=== PATIENT | female | born 1960 | race Caucasian/White ===

== ENCOUNTER 2017-03-24 14:47 | Emergency (ER) | payer OTHER, SELFPAY ==
[2017-03-24 14:55] VITALS: BP 179/100; PULSE 79; RESP 18; TEMP 37; O2SAT 95; BMI 26.3
--- NOTE | 2017-03-24 15:07 | XR_ITS ---
XR chest 2V HISTORY: Cough and congestion, tobacco abuse, smoker ITS.REASON: COUGH ORDERING PHYSICIAN: Dmitriy Ballard MD PATIENT AGE: 56 years COMPARISON: 05/13/2016 FINDINGS: The cardiomediastinal silhouette and pulmonary vascularity are within normal limits. There are emphysematous changes. No lobar consolidation or collapse. No acute bony anomalies. IMPRESSION: COPD/emphysema, no acute infiltrate.
--- NOTE | 2017-03-24 15:12 | HMH.EDGENADL ---
ED Disposition Clinical Impression: Sinusitis Qualifiers: Sinusitis location: unspecified location Chronicity: unspecified Qualified Code(s): J32.9 - Chronic sinusitis, unspecified Disposition: Home, Self-Care Condition on Discharge: Good Instructions: Sinusitis Additional Instructions: Additional instructions for HEADACHE: See your physician as soon as possible for further evaluation. Return immediately if worsening headache, vomiting, problems with vision or speech, fever, numbness or weakness of the extremities, neck pain or stiffness. Prescriptions: Azithromycin [Zithromax 250mg tab] 250 mg PO DAILY #4 tab Referrals: Eduard Augustin MD [Primary Care Provider] - - Critical Care Critical Care Time: No Attestation: On , the high probability of a clinically significant, sudden or life threatening deterioration of the following system(s) required my full and direct attention, intervention and personal management. The time I documented below is in addition to time spent performing reported procedures but includes the following listed in this critical care notation. Medical Decision Making Vital Signs: 03/24/17 14:55 Temperature 98.6 F Temperature Source Oral Pulse Rate [Right Brachial] 79 Respiratory Rate 18 Blood Pressure [Right Arm] 179/100 Blood Pressure Mean [Right Arm] 126 Blood Pressure Source [Right Arm] Automatic Cuff Blood Pressure Position [Right Arm] Sitting 02 Sat by Pulse Oximetry 95 Oxygen Delivery Method Room Air - Lab Data Lab Results 03/24/17 14:35: Urine Color Yellow, Urine Appearance Sl cloudy, Urine pH 7.0, Ur Specific [place] 1.020, Urine Protein Trace, Urine Glucose (UA) Negative, Urine Ketones Negative, Urine Blood Trace-i, Urine Nitrate Negative, Urine Bilirubin Negative, Urine Urobilinogen 0.2, Ur Leukocyte Esterase Negative, Urine RBC 3-5, Urine WBC Occasional, Ur Squamous Epith Cells 10-20, Urine Bacteria 2+, Urine Mucus 2+ 03/24/17 15:09: Influenza Type A Ag Negative, Influenza Type B Ag Negative 03/24/17 16:00: WBC 12.6 H, RBC 4.59, Hgb 15.6, Hct 46.1, MCV 100.4 H, MCH 34.0 H, MCHC 33.9, RDW 13.2, Plt Count 271, MPV 7.8, Neut % (Auto) 69.1, Lymph % (Auto) 22.2, [place] % (Auto) 5.6, Eos % (Auto) 2.5, Baso % (Auto) 0.6, Neut # (Auto) 8.7 H, Lymph # (Auto) 2.8, [place] # (Auto) 0.7, Eos # (Auto) 0.3, Baso # (Auto) 0.1 03/24/17 16:00: Sodium 141, Potassium 4.2, Chloride 105, Carbon Dioxide 29, Anion Gap 11.2, BUN 10, Creatinine 0.48 L, Estimated Creat Clear 181, Estimated GFR 135, Est GFR ( Amer) 163, Glucose 89, Calcium 8.8, Total Bilirubin 0.5, AST 21, ALT 30, Alkaline Phosphatase 112, Troponin I < 0.02, Total Protein 7.7, Albumin 3.6, Globulin 4.1 H, Albumin/Globulin Ratio 0.9 L Result diagrams: 03/24/17 16:00 03/24/17 16:00 Orders (Tests/Meds): ED MEDICATIONS Discontinued Medications Generic Name Dose Route Start Last Admin Trade Name Melecioq PRN Reason Stop Dose Admin Iopamidol 75 ml 03/24/17 16:57 03/24/17 16:58 [id number]; 75ml Vial IV 03/24/17 16:58 75 ml ONCE ONE Administration Ketorolac Tromethamine 30 mg 03/24/17 15:27 03/24/17 16:38 Toradol 30mg/Ml Vial IV 03/24/17 15:28 30 mg ONCE ONE Administration Sodium Chloride 10 ml 03/24/17 16:57 03/24/17 16:58 Rad-Saline Flush 10ml Syringe IV 03/24/17 16:58 10 ml ONCE ONE Administration ORDERS Category Date Time Status CT head/brain wo/w con Stat Cat Scan 03/24/17 15:[address] soft tissue neck w con Stat Cat Scan 03/24/17 15:25 Taken Urine Culture Stat Micro 03/24/17 14:35 Received ECG Request by /Pascual Stat Y 03/24/17 15:27 Ordered - CT Data CT Scan: Head, Other (neck) Time Received: 18:[address] Reviewed: Yes: I have viewed the radiologist's interpretation Findings Narrative: CT scan interpreted by [facility] radiologist. Faxed report received and reviewed: Head: No acute abnormality of the brain parenchyma and extra-axial space. Mild sinus disease.
--- NOTE | 2017-03-24 15:25 | CT_ITS ---
CT head/brain wo/w con HISTORY: Severe headache with dizziness ITS.REASON: headache ORDERING PHYSICIAN: Dmitriy Ballard MD PATIENT AGE: 56 years COMPARISON: 01/11/2014 TECHNIQUE: Axial images obtained without and with contrast. Brain and bone windows reviewed. FINDINGS: There is mild prominence of the adenoid tissue. No midline shift, mass effect, intracranial hemorrhage, or hydrocephalus. No enhancing lesion. Mild mucosal thickening involves the ethmoid sinuses. No sinus air-fluid level evident. No mastoid effusion. IMPRESSION: 1. No acute intracranial findings. 2. Mild ethmoid sinus disease with mild adenoid hypertrophy
--- NOTE | 2017-03-24 15:25 | CT_ITS ---
CT soft tissue neck w con CLINICAL INDICATION: ITS.REASON: hoarse voice, throat pain for more than 1 month ORDERING PHYSICIAN: Dmitriy Ballard MD PATIENT AGE: 56 years COMPARISON: None FINDINGS: Adenoid hypertrophy is present. Scattered small lymph nodes are present in the neck. A small cluster of nodes present in the right jugulodigastric region measuring up to 12 x 18 mm and on the left measuring up to 14 x 11 mm. No evidence of abscess. The epiglottis and glottic region has an unremarkable appearance. The parotid and salivary glands are unremarkable. Right thyroid gland absent or atrophic. Upper thoracic images show centrilobular emphysema. Mild mucosal thickening involves the left ethmoid sinus. There is reversal of the cervical lordosis with degenerative disc disease at C5-C6 and C6-C7. Facet arthritic changes are present on the right C2-C3 IMPRESSION: 1. Mild cervical adenopathy. 2. Adenoid hypertrophy. 3. Centrilobular emphysema 4. Mild left ethmoid sinus disease
[2017-03-24 16:08] LABS: Basophils # 0.1 K/mm3 (0-0.2); Basophils % 0.6 % (0.1-2.0); Eosinophils # 0.3 K/mm3 (0.0-0.4); Eosinophils % 2.5 % (0.1-12.0); Hematocrit 46.1 % (37.0-47.0); Hemoglobin 15.6 g/dL (12.2-16.2); Lymphocytes # 2.8 K/mm3 (0.7-4.5); Lymphocytes % 22.2 K/mm3 (10-50); Mean Corpuscular HGB Conc 33.9 g/dL (31.8-35.4); Mean Corpuscular Volume 100.4 fl (81-99); Mean Platelet Volume 7.8 fl (7.4-10.4); Monocytes # 0.7 K/mm3 (0.1-1.0); Monocytes % 5.6 % (1.7-9.3); Neutrophils # 8.7 K/mm3 (1.8-7.8); Neutrophils % 69.1 % (37.0-80.0); Platelet Count 271 K/mm3 (142-424); Red Blood Count 4.59 M/mm3 (4.20-5.40); Red Cell Distribution Width 13.2 % (11.5-17.5); White Blood Count 12.6 K/mm3 (4.8-10.8)
[2017-03-24 16:25] LABS: Alanine Aminotransferase 30 U/L (12-78); Albumin Level 3.6 gm/dL (3.4-5.0); Albumin/Globulin Ratio 0.9 (1.1-1.8); Alkaline Phosphatase 112 U/L (46-116); Anion Gap 11.2 mEq/L (5-15); Aspartate Amino Transferase 21 U/L (15-37); Bilirubin,Total 0.5 mg/dL (0.2-1.0); Blood Urea Nitrogen 10 mg/dL (7-18); Calcium 8.8 mg/dL (8.5-10.1); Carbon Dioxide 29 mmol/L (21.0-32.0); Chloride 105 mmol/L (98-107); Creatinine Clearance Estimated 181 mL/min (0-300); Creatinine,Serum 0.48 mg/dL (0.55-1.02); Estimated Glomerular Filt Rate 135 ml/min (>60); GFR (African American) 163 ML/MIN (>60); Globulin 4.1 gm/dl (1.3-3.2); Glucose 89 mg/dL (74-106); Potassium 4.2 mmoL/L (3.5-5.1); Sodium 141 mmol/L (136-145); Total Protein,Serum 7.7 gm/dL (6.4-8.2); Troponin I < 0.02 ng/ml (0.00-0.06)
[2017-03-24 16:36] LABS: Microscopic, Urine URINE MICROSCOPIC (MICROSCOPIC)
[2017-03-24 16:46] LABS: Appearance,Urine SL CLOUDY (Clear); Bilirubin,Urine Negative (Negative); Blood, Urine TRACE-I (Negative); Color,Urine YELLOW (Yellow); Glucose,Urine (UA) Negative (Negative); Ketones,Urine Negative (Negative); Leukocyte Esterase,Urine Negative (Negative); Nitrate,Urine Negative (Negative); Protein,Urine TRACE (Negative); Urobilinogen,Urine 0.2 EU/dl (0.2)
[2017-03-24 18:06] LABS: Bacteria,Urine 2+ /lpf; Mucus,Urine 2+ /lpf; WBC,Urine Occasional #/hpf (0-3)
[2017-03-24 19:19] VITALS: BP 189/100; PULSE 82; RESP 20; TEMP 37.2; O2SAT 97
== END 2017-03-24 19:22 | disposition home or self-care (01) ==
PROVIDERS: Emergency Provider Emergency Medicine; Family Provider Nurse Practitioner Family; PCP Internal Medicine
DX: J32.9 Chronic sinusitis, unspecified (principal); R52 Pain, unspecified; R42 Dizziness and giddiness; R06.02 Shortness of breath; H53.8 Other visual disturbances; Z72.0 Tobacco use
CPT/HCPCS: 70470; 70491; 71046; 80053; 81001; 84484; 85025; 87086; 87275; 87276; 96374; 99282; Q9967

== ENCOUNTER 2017-04-01 12:55 | Emergency (ER) | payer OTHER, SELFPAY ==
[2017-04-01 13:08] VITALS: BP 153/108; PULSE 75; RESP 20; TEMP 37.1; O2SAT 95; BMI 25.9
--- NOTE | 2017-04-01 13:09 | XR_ITS ---
XR ribs LT min 3V w CXR1V HISTORY: Left-sided rib pain following injury ITS.REASON: FELL AT HOME ORDERING PHYSICIAN: Antione Harrell PATIENT AGE: 56 years COMPARISON: None FINDINGS: A frontal view of the chest shows no acute finding. There is some hyperinflation suggesting COPD with hyperlucency in the apices. Multiple views of the left ribs show old left-sided rib fractures involving the left sixth and seventh ribs. There is angulation deformity involving the anterior aspect of the left eighth and ninth ribs which may represent nondisplaced acute fractures. Please correlate with patient's area of pain. No evidence of pneumothorax. No displaced fractures. There is old left distal clavicular fracture. IMPRESSION: Suspect acute and chronic left-sided rib fractures as described above which are nondisplaced.
--- NOTE | 2017-04-01 13:09 | XR_ITS ---
XR hand RT min 3V HISTORY: Posttraumatic pain ITS.REASON: FELL AT HOME ORDERING PHYSICIAN: Antione Harrell PATIENT AGE: 56 years COMPARISON: None FINDINGS: A bone plate is present along the distal radius. There is a rounded metallic density at the base of the first metacarpal. No acute fracture or dislocation is evident. IMPRESSION: No acute finding
--- NOTE | 2017-04-01 13:30 | HMH.EDUTC ---
[facility] [place] Impression: Right wrist sprain Qualifiers: Encounter type: initial encounter Qualified Code(s): S63.501A - Unspecified sprain of right wrist, initial encounter Fall Qualifiers: Encounter type: initial encounter Qualified Code(s): W19.XXXA - Unspecified fall, initial encounter Left rib fracture Qualifiers: Encounter type: initial encounter Rib fracture type: multiple ribs Fracture type: closed Qualified Code(s): S22.42XA - Multiple fractures of ribs, left side, initial encounter for closed fracture Disposition: Home, Self-Care Condition on Discharge: Good Instructions: DI for Rib Fracture, DI for Wrist Sprain Additional Instructions: * use as tolerated * Rest * ice 15-20 mins 3-4 times a day * wrist splint for support and pain unless in shower. Be sure not too tight but not too loose either * Do not wrap ribs as this can lead to pneumonia. Splint your ribs with moving, coughing. * Elevate as discussed as much as possible to help reduce swelling and therefore, pain * I discussed your pain with the ER MD. Follow up with Dr. Prakash regarding your pain. Due to your pain contract, we will not prescribe you additional pain medication. Referrals: Eduard Augustin MD [Primary Care Provider] - (Call again today. Report you were here so he can request xrays. Questionable rib fractures and wrist sprain. We will not give additional pain medication due to your current narcotic use/agreement.) Time of Disposition: 14:02 Medical Decision Making Vital Signs: 04/01/17 13:08 04/01/17 14:07 Temperature 98.7 F 98.0 F Temperature Source Temporal Artery Scan Pulse Rate 78 Pulse Rate [Right Radial] 75 Respiratory Rate 20 18 Blood Pressure 136/77 Blood Pressure [Right Arm] 153/108 Blood Pressure Mean [Right Arm] 123 02 Sat by Pulse Oximetry 95 Oxygen Delivery Method Room Air - Radiology Data #1 Image(s): Wrist, Other (ribs) Image Reviewed: Yes I have reviewed radiologist's interpretation Preliminary Findings: Normal/NAD (hand), Abnormal (ribs) see report, questionable acute rib fractures w/ old fracture present - Physician Consults Physician Consulted: Dr. Vazquez, ER MD Reason -: Pt condition Comment/Response: Discussed PMHx, HPI, degree of pain, current treatment. Reports pt must follow up with primary care and no further narcotics are to be given due to pain contract. Aware pt threatening to leave [facility] and sign in ER. States pt is welcome to do so but his POC will be no different then out POC. - Alberto Inquiry Pt receiving controlled substance: No - Reevaluation(s) Reevaluation #1: pt refusing all offered medications (toradol injection, ibuprofen, naproxen, steroids, norflex). Wants medication stronger then oxycodone. Updated pt that I spoke to ER MD. She is fine with POC to follow up with primary care. He always calls me back so I am sure he will today . Request copy of xray reports and plans to follow up with him. Anxiety appears less and pt appears more comfortable at discharge [facility] [place] - General Stated complaint: AO [id number] RIB PAIN Time Seen by Provider: 04/01/17 13:30 Mode of Arrival: Family Vehicle Source of Information: Patient Limitations: No Limitations Description of Symptoms (Recalled from Triage Doc. by RN): PT C/O LEFT RIB PAIN AND RIGHT HAND PAIN FROM FALL ON WEDNESDAY IN HER HOUSE. HEENT Symptoms (Recalled from RN notes): No Resp Symptoms (Recalled from RN notes): No Skin Symptoms (Recalled from RN notes): No MS Symptoms (Recalled from RN notes): Yes (LEFT RIB PAIN AND RIGHT WRIST) Functional Status (Recalled from RN notes): NA - History of Present Illness Provider Complaint: c/o right hand and left ribs pain after falling Wednesday, 3 days ago. Reports a hx of chronic low back pain that causes RLE weakness intermittently. Has been referred to [facility] by PCP in [place] but has not had that appt yet. Reports that on Wednesday, RLE gave out resulting in fall over chair onto l
--- NOTE | 2017-04-01 13:57 | ED_ITS ---
[facility] [place] Clinical Impression: Right wrist sprain Qualifiers: Encounter type: initial encounter Qualified Code(s): S63.501A - Unspecified sprain of right wrist, initial encounter Fall Qualifiers: Encounter type: initial encounter Qualified Code(s): W19.XXXA - Unspecified fall, initial encounter Left rib fracture Qualifiers: Encounter type: initial encounter Rib fracture type: multiple ribs Fracture type: closed Qualified Code(s): S22.42XA - Multiple fractures of ribs, left side , initial encounter for closed fracture Disposition: Home, Self-Care Condition on Discharge: Good Instructions: DI for Rib Fracture, DI for Wrist Sprain Additional Instructions: * use as tolerated * Rest * ice 15-20 mins 3-4 times a day * wrist splint for support and pain unless in shower. Be sure not too tight but not too loose either * Do not wrap ribs as this can lead to pneumonia. Splint your ribs with moving, coughing. * Elevate as discussed as much as possible to help reduce swelling and therefore , pain * I discussed your pain with the ER MD. Follow up with Dr. Prakash regarding your pain. Due to your pain contract, we will not prescribe you additional pain medication. Referrals: Eduard Augustin MD [Primary Care Provider] - (Call again today. Report you were here so he can request xrays. Questionable rib fractures and wrist sprain. We will not give additional pain medication due to your current narcotic use/ agreement.) Time of Disposition: 14:02 Medical Decision Making Vital Signs: 04/01/17 13:08 04/01/17 14:07 Temperature 98.7 F 98.0 F Temperature Source Temporal Artery Scan Pulse Rate 78 Pulse Rate [Right Radial] 75 Respiratory Rate 20 18 Blood Pressure 136/77 Blood Pressure [Right Arm] 153/108 Blood Pressure Mean [Right Arm] 123 02 Sat by Pulse Oximetry 95 Oxygen Delivery Method Room Air - Radiology Data #1 Image(s): Wrist, Other (ribs) Image Reviewed: Yes I have reviewed radiologist's interpretation Preliminary Findings: Normal/NAD (hand), Abnormal (ribs) see report, questionable acute rib fractures w/ old fracture present - Physician Consults Physician Consulted: Dr. Vazquez, ER MD Reason -: Pt condition Comment/Response: Discussed PMHx, HPI, degree of pain, current treatment. Reports pt must follow up with primary care and no further narcotics are to be given due to pain contract. Aware pt threatening to leave [facility] and sign in ER. States pt is welcome to do so but his POC will be no different then out POC. - Alberto Inquiry Pt receiving controlled substance: No - Reevaluation(s) Reevaluation #1: pt refusing all offered medications (toradol injection, ibuprofen, naproxen, steroids, norflex). Wants medication stronger then oxycodone. Updated pt that I spoke to ER MD. She is fine with POC to follow up with primary care. He always calls me back so I am sure he will today . Request copy of xray reports and plans to follow up with him. Anxiety appears less and pt appears more comfortable at discharge [facility] [place] HPI - General Stated complaint: AO [id number] RIB PAIN Time Seen by Provider: 04/01/17 13:30 Mode of Arrival: Family Vehicle Source of Information: Patient Limitations: No Limitations Description of Symptoms (Recalled from Triage Doc. by RN): PT C/O LEFT RIB PAIN AND RIGHT HAND PAIN FROM FALL ON WEDNESDAY IN HER HOUSE. HEENT Symptoms (Recalled from RN notes): No Resp Symptoms (Recalled from RN notes): No Skin Symp
[2017-04-01 14:07] VITALS: BP 136/77; PULSE 78; RESP 18; TEMP 36.7; O2SAT 99
== END 2017-04-01 14:20 | disposition home or self-care (01) ==
PROVIDERS: Emergency Provider Nurse Practitioner Family; Family Provider Nurse Practitioner Family; PCP Internal Medicine
DX: S63.501A Unspecified sprain of right wrist, initial encounter (principal); S22.42XA Multiple fractures of ribs, left side, initial encounter for closed fracture; W01.0XXA Fall on same level from slipping, tripping and stumbling without subsequent striking against object, initial encounter; Y92.019 Unspecified place in single-family (private) house as the place of occurrence of the external cause; Z79.899 Other long term (current) drug therapy; Z88.0 Allergy status to penicillin; I10 Essential (primary) hypertension; F17.210 Nicotine dependence, cigarettes, uncomplicated
CPT/HCPCS: 71101; 73130; 99202

== ENCOUNTER → 2017-10-22 11:58 | Outpatient (CLI) | payer OTHER, SELFPAY ==
[2017-10-22 13:13] LABS: Basophils # 0.1 K/mm3 (0-0.2); Basophils % 1.3 % (0.1-2.0); Eosinophils # 0.3 K/mm3 (0.0-0.4); Eosinophils % 3.8 % (0.1-12.0); Hemoglobin 14.7 g/dL (12.2-16.2); Lymphocytes # 3.6 K/mm3 (0.7-4.5); Lymphocytes % 45.2 K/mm3 (10-50); Mean Corpuscular HGB Conc 33.4 g/dL (31.8-35.4); Mean Corpuscular Hemoglobin 33.2 pg (27.0-31.2); Mean Corpuscular Volume 99.5 fl (81-99); Mean Platelet Volume 8.1 fl (7.4-10.4); Monocytes # 0.6 K/mm3 (0.1-1.0); Monocytes % 8.1 % (1.7-9.3); Neutrophils # 3.3 K/mm3 (1.8-7.8); Neutrophils % 41.7 % (37.0-80.0); Platelet Count 319 K/mm3 (142-424); Red Blood Count 4.42 M/mm3 (4.20-5.40); Red Cell Distribution Width 12.9 % (11.5-17.5)
[2017-10-22 14:16] LABS: Alanine Aminotransferase 24 U/L (12-78); Albumin Level 3.5 gm/dL (3.4-5.0); Alkaline Phosphatase 119 U/L (46-116); Anion Gap 11.1 mEq/L (5-15); Aspartate Amino Transferase 15 U/L (15-37); Bilirubin,Direct 0.1 mg/dL (0.0-0.2); Bilirubin,Indirect 0.4 mg/dL (0.0-0.9); Bilirubin,Total 0.5 mg/dL (0.2-1.0); Blood Urea Nitrogen 18 mg/dL (7-18); Calcium 8.2 mg/dL (8.5-10.1); Carbon Dioxide 30 mmol/L (21.0-32.0); Chloride 104 mmol/L (98-107); Creatinine,Serum 0.72 mg/dL (0.55-1.02); Estimated Glomerular Filt Rate 84 ml/min (>60); GFR (African American) 102 ML/MIN (>60); Glucose 113 mg/dL (74-106); Potassium 4.1 mmoL/L (3.5-5.1); Sodium 141 mmol/L (136-145)
[2017-10-23 08:15] LABS: Hep A Ab, IgM Negative (Negative); Hepatitis B Core Antibody IgM Negative (Negative); Hepatitis B Surface Antigen Negative (Negative)
[2017-10-25 05:17] LABS: HIV Screen 4th Generation wRfx Non Reactive (Non Reactive)
[2017-10-25 05:17] LABS: Hepatitis C Antibody 6.1 s/co ratio (0.0-0.9)
== END ==
PROVIDERS: PCP Nurse Practitioner Family; Visit Provider Family Medicine Addiction Medicine
DX: F11.20 Opioid dependence, uncomplicated (principal); Z79.899 Other long term (current) drug therapy
CPT/HCPCS: 36415; 80048; 80074; 80076; 85025; 86703; G0432

== ENCOUNTER → 2017-11-24 14:49 | Outpatient (CLI) | payer OTHER, SELFPAY ==
--- NOTE | 2017-11-24 14:55 | XR_ITS ---
XR tibia fibula LT 2V CLINICAL INDICATION: ITS.REASON: BENIGN SOFT TISSUE NEOPLASM ORDERING PHYSICIAN: Monae Kelly PATIENT AGE: 56 years Comparison: None FINDINGS: There is no fracture involving the distal shaft of the fibula. This is nondisplaced. There is abundant callus formation noted. Fracture line however still visible centrally. No other significant anomalies are evident. IMPRESSION: Old distal fibular fracture with incomplete bony union
== END ==
PROVIDERS: PCP Nurse Practitioner Family; Visit Provider Nurse Practitioner Family
DX: D21.9 Benign neoplasm of connective and other soft tissue, unspecified (principal)
CPT/HCPCS: 73590

== ENCOUNTER → 2020-02-16 15:38 | Outpatient (CLI) | payer MEDICAID, SELFPAY ==
--- NOTE | 2020-02-16 15:45 | XR_ITS ---
PROCEDURE: XR WRIST RT 2V CLINICAL INDICATION: PAIN IN RT WRIST COMPARISON: CR WRL3 WRIST-3 VIEWS-LT from 10/18/2012 CR WRL3 WRIST-3 VIEWS-LT from 10/28/2012 CR WRL3 WRIST-3 VIEWS-LT from 04/27/2013 CR WRISTCMRT XR wrist RT min 3V from 05/17/2017 FINDINGS: There is a volar bone plate at the distal radius. Small spur is present along the ulnar aspect of the distal radius at the articular surface. A rounded metallic density is present at the base of the thumb consistent with a prosthesis. There is lateral dislocation the 1st metacarpal similar to the previous exam. There are mild degenerative changes at the scapho trapezium joint Other findings:None. IMPRESSION: Postsurgical and degenerative changes, no acute finding Dictated by: Stephen Odonnell MD 02/16/2020 16:55 Stephen Odonnell MD in [place] 02/16/2020 16:55
== END ==
PROVIDERS: PCP Nurse Practitioner Family; Visit Provider Nurse Practitioner Family
DX: M25.531 Pain in right wrist (principal)
CPT/HCPCS: 73100

== ENCOUNTER → 2020-02-22 16:11 | Outpatient (CLI) | payer MEDICAID, SELFPAY ==
--- NOTE | 2020-02-22 16:16 | XR_ITS ---
PROCEDURE: XR HIP LT 2-3V W/PELVIS CLINICAL INDICATION: TROCHANTERIC BURSITIS, LT HIP COMPARISON: CR HIPCMRT XR hip RT 2-3V w/pelvis from 05/17/2017 FINDINGS: There are mild osteoarthritic changes of both hips as seen on the AP view of the pelvis. There is an old left inferior pubic ramus fracture. Cortical thickening also noted the superior pubic ramus on the left laterally which may be due to an old fracture. No acute fracture or dislocation. No lytic or blastic change IMPRESSION: Mild osteoarthritis of the hips with old left superior and inferior pubic rami fractures Dictated by: Stephen Odonnell MD 02/22/2020 16:27 Stephen Odonnell MD in [place] 02/22/2020 16:27
== END ==
PROVIDERS: PCP Nurse Practitioner Family; Visit Provider Nurse Practitioner Family
DX: M70.62 Trochanteric bursitis, left hip (principal)
CPT/HCPCS: 73502

== ENCOUNTER → 2020-04-03 12:15 | Outpatient (CLI) | payer MEDICAID, SELFPAY ==
[2020-04-03 12:55] LABS: Blood Urea Nitrogen 16 mg/dl (7-17); Estimated Glomerular Filt Rate 103 ml/min (>60); GFR (African American) 125 ML/MIN (>60)
--- NOTE | 2020-04-03 13:19 | MR_ITS ---
PROCEDURE: MR WRIST RT WO/W CON CLINICAL INDICATION: RIGHT WRIST PAIN HX WRIST SURGERY X4YRS AGO. GANGLION CYST ON POSTERIOR ASPECT OF WRIST X1YR, BUT HAS GOTTEN BIGGER. TENDER TO TOUCH. 17ML PROHANCE GIVEN. LOT:[id number] EXP: MAR 2022 BUN:16 CRE:0.6 GFR:103 X-RAY 02-16-20 COMPARISON: CR XR WRIST RT 2V from 02/16/2020 TECHNIQUE: Routine multiplanar multi echo sequences are performed without and with gadolinium enhancement. FINDINGS: Extensive artifact is present from prior distal radial fixation. Metallic artifact also present at the proximal aspect of the 1st metacarpal. There is trace fluid in the 3rd 4th and 5th carpal metacarpal joints and trace fluid in visualized metacarpophalangeal joints. Wrist ligaments are obscured by metallic artifact. Triangular fibrocartilage obscured by metallic artifact. Large amount of fluid is present distending the 4th extensor compartment tendon sheath, small amount of fluid in the 2nd 3rd and 5th extensor compartments consistent with tenosynovitis. Small he castorena is or debris within the tendon sheaths. Synovial enhancement of the tendon sheath noted. Tendons appear intact. No abnormal soft tissue mass. 10 mm dorsal lateral juxta-articular synovial cyst deep to the distended tendon sheath. IMPRESSION: 1. Extensive artifact from radial fixation device and proximal 1st metacarpal prosthesis. 2. Prominent extensor tenosynovitis with some adhesions and debris. 3. No obvious tendon tear 4. 1 cm juxta-articular synovial cyst deep to the dilated extensor tendon sheath. 5. No obvious soft tissue mass Dictated by: Stephen Odonnell MD 04/17/2020 14:11 Stephen Odonnell MD in [place] 04/17/2020 14:11
== END ==
PROVIDERS: PCP Nurse Practitioner Family; Visit Provider Orthopaedic Surgery Adult Reconstructive Orthopaedic Surgery
DX: M25.531 Pain in right wrist (principal)
CPT/HCPCS: 36415; 73223; 82565; 84520; A9576

== ENCOUNTER → 2020-10-23 14:16 | Outpatient (CLI) | payer MEDICAID, SELFPAY ==
--- NOTE | 2020-10-23 14:20 | XR_ITS ---
PROCEDURE: XR SHOULDER RT MIN 2V CLINICAL INDICATION: PAIN IN RT SHOULDER COMPARISON: CR SHOU3L [id number] VIEWS from 08/22/2014 CR SHOULDCMRT XR shoulder RT min 2V from 05/17/2017 FINDINGS: No fracture or dislocation. No lytic or blastic change. There is normal mineralization. The joint spaces are well-preserved. No significant degenerative/arthritic changes. No erosive changes evident. Other findings:None. IMPRESSION: No acute findings. Dictated by: Stephen Odonnell MD 10/23/2020 16:34 Stephen Odonnell MD in [place] 10/23/2020 16:34
== END ==
PROVIDERS: PCP Nurse Practitioner; Visit Provider Nurse Practitioner
DX: M25.511 Pain in right shoulder (principal)
CPT/HCPCS: 73030

== ENCOUNTER → 2020-11-07 13:16 | Outpatient (CLI) | payer MEDICAID, SELFPAY ==
--- NOTE | 2020-11-07 13:18 | CA_ITS ---
APPROVED REPORT Pool Table Mechanic: YASMINE Laterality: Bilateral Study Quality: Good Indications: eval for carotid stenosis, recurrent dizziness Risk Factors Smoking dizziness Doppler Spectral Velocity Analysis ECA (R) 47.00/10.70 cm/s ECA (L) 59.90/21.40 cm/s dICA (R) 119.00/56.10 cm/s dICA (L) 132.80/64.30 cm/s Palma (R) 49.30/21.60 cm/s [place] (L) 55.10/26.20 cm/s pICA (R) 51.60/20.80 cm/s pICA (L) 66.30/29.10 cm/s dCCA (R) 57.70/23.00 cm/s dCCA (L) 62.90/27.60 cm/s pCCA (R) 61.50/20.30 cm/s pCCA (L) 72.60/28.90 cm/s Vert (R) 53.90/26.20 cm/s Vert (L) 51.40/30.00 cm/s ICA/CCA 1.91 ICA/CCA 1.84 Findings Duplex evaluation demonstrates antegrade flow of the bilateral Vertebral Arteries. Duplex evaluation demonstrates stenosis of the right proximal internal carotid artery in the range of 20-49% with PSV <140 cm/sec, EDV <100 cm/sec, and IC/CC Ratio <4.0. Duplex evaluation demonstrates stenosis of the left proximal internal carotid artery in the range of 20-49% with PSV <140 cm/sec, EDV <100 cm/sec, and IC/CC Ratio <4.0. Conclusion Duplex evaluation demonstrates antegrade flow of the bilateral Vertebral Arteries. Duplex evaluation demonstrates stenosis of the right proximal internal carotid artery in the range of 20-49% with PSV <140 cm/sec, EDV <100 cm/sec, and IC/CC Ratio <4.0. Duplex evaluation demonstrates stenosis of the left proximal internal carotid artery in the range of 20-49% with PSV <140 cm/sec, EDV <100 cm/sec, and IC/CC Ratio <4.0. Electronically signed by : Stephen Odonnell MD 11/07/2020 16:13:08
--- NOTE | 2020-11-07 15:23 | MR_ITS ---
PROCEDURE: MR SHOULDER RT WO CON CLINICAL INDICATION: PAIN IN RIGHT SHOULDER COMPARISON: CR XR SHOULDER RT MIN 2V from 10/23/2020 TECHNIQUE: Routine multiplanar multi echo sequences are performed without gadolinium enhancement. FINDINGS: Generalized motion artifact somewhat obscures fine detail. There is complete tear of the supraspinatus and infraspinatus tendons with mild retraction of the musculotendinous fibers. Shoulder joint effusion is present. Fluid is present in the subdeltoid region and subacromial area. Small amount fluid is present in the acromioclavicular joint. No labral tear apparent. The bicipital tendon is in place. There is thickening of the subscapularis tendon consistent with tendinopathy/tendinosis. Fluid is present anterior to the subscapularis muscle and along the lateral aspect of the proximal humerus. Subchondral cystic changes are present in the humeral head. IMPRESSION: Complete tear of the supraspinatus and infraspinatus tendons with mild retraction of the musculotendinous fibers Shoulder joint effusion with bursal collections in the sub coracoid region and around the proximal humerus. Dictated by: Stephen Odonnell MD 11/08/2020 07:56 Stephen Odonnell MD in [place] 11/08/2020 07:56
== END ==
PROVIDERS: PCP Nurse Practitioner; Visit Provider Nurse Practitioner Family
DX: R42 Dizziness and giddiness (principal); R00.0 Tachycardia, unspecified; F12.90 Cannabis use, unspecified, uncomplicated; G47.00 Insomnia, unspecified; G47.8 Other sleep disorders; G47.9 Sleep disorder, unspecified; Z72.0 Tobacco use; M25.511 Pain in right shoulder
CPT/HCPCS: 73221; 93880

== ENCOUNTER 2020-11-07 13:57 | Outpatient (RCR) | payer MEDICAID, SELFPAY ==
--- NOTE | 2020-11-07 15:08 | HMH.PTOPEV ---
PT Outpatient Evaluation Rehab PT Outpatient Evaluation Start: 11/07/20 14:44 Freq: Status: Active Protocol: Document 11/07/20 14:45 KRISTINEMCKINLEY (Rec: 11/07/20 15:07 JORGE ALBERTO [id number]) Electronically Signed By Wayne Larsen, PT 11/07/20 14:45 Outpatient Therapy Subjective History Subjective History This is the initial Physical therapy vestibular evaluation for Delia Buchanan. Pt is a 59 y/o female referred to PT for vestibular rehab due to c/o fainting, dizziness, and feelings of passing out . Pt reports these spells began in April w/ min c/o just, feeling odd . Pt states she was usually able to sit down and eat something and spell would pass . Pt reports on Oct 25 she had a real bad spell where her ears got warm, she felt like she was gonna pass out, and when she was able to lie down she passed out . Pt does not know of any aggravating factor for spells . Chief Complaint Other Symptom Type Other Symptoms Relieved By Nothing Balance Eval Subjective Hx of Complaint Comment feeling of fainting beginning in April 2020 Chief Complaint vertigo No Did you feel dizzy, unsteady or faint? Yes Activity at onset unknown Prior Functional Limitations Prior Functional Fieldon Level Ind Current Functional Limitations Comment none Hx of Falls Hx Falls No Gait/Posture Asssessment General Gait Observation No Deviations/Normal Assistive Devices None / NA Level of Transfer Assist Independent Hip Observation in Gait Swing No Deviation Hip Observation in Gait Stance No Deviation Ankle/Foot Observation in Gait Swing No Deviation Ankle/Foot Observation in Gait Stance No Deviation Nystagmus Nystagmus Presence None Oculomotor Gaze Oculomotor Gaze Nml: Vergence Smooth Pursuit Saccades VOR Cancellation Cover/Uncover Cross Cover Outpatient Therapy Assessment Prognosis Rehab Potential I
== END 2020-11-07 13:59 | disposition home or self-care (01) ==
LOC: PT 13:57
PROVIDERS: PCP Nurse Practitioner; Visit Provider Nurse Practitioner Family
DX: R42 Dizziness and giddiness (principal)
CPT/HCPCS: 97163

== ENCOUNTER → 2020-11-13 09:47 | Outpatient (CLI) | payer MEDICAID, SELFPAY ==
--- NOTE | 2020-11-13 09:47 | MR_ITS ---
PROCEDURE INFORMATION: Exam: MRA Head Without Contrast; Arteriography Exam date and time: 11/13/2020 9:47 AM Age: 59 years old Clinical indication: Dizziness and giddiness; Additional info: Eval posterior circulation. Dizziness TECHNIQUE: Imaging protocol: Magnetic resonance angiography head without contrast. Exam focused on the arteries. COMPARISON: HEADWW CT head/brain wo/w con 03/24/2017 4:51 PM FINDINGS: ANTERIOR CIRCULATION: Right internal carotid artery: Intracranial segment is patent with no significant stenosis. No aneurysm. Right middle cerebral artery: No occlusion or significant stenosis. No aneurysm. Right anterior cerebral artery: No occlusion or significant stenosis. No aneurysm. Left internal carotid artery: Intracranial segment is patent with no significant stenosis. No aneurysm. Left middle cerebral artery: No occlusion or significant stenosis. No aneurysm. Left anterior cerebral artery: The A1 segment of the left anterior cerebral artery is the dominant supply of the anterior cerebral circulation. POSTERIOR CIRCULATION: Right vertebral artery: No occlusion or significant stenosis. No aneurysm. Left vertebral artery: No occlusion or significant stenosis. No aneurysm. Basilar artery: No occlusion or significant stenosis. No aneurysm. Right posterior cerebral artery: No occlusion or significant stenosis. No aneurysm. Left posterior cerebral artery: No occlusion or significant stenosis. No aneurysm. Brain: There is no evidence of intracranial large vessel stenosis or occlusion. IMPRESSION: 1. There are codominant vertebral arteries with no stenosis or dissection. 2. The A1 segment of the left anterior cerebral artery is the dominant supply of the anterior cerebral circulation. 3. There is no evidence of intracranial large vessel stenosis or occlusion.
--- NOTE | 2020-11-13 09:47 | MR_ITS ---
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 FINDINGS: No midline shift, mass effect, intracranial hemorrhage or hydrocephalus. There are few nonspecific T2 white matter hyperintensities suggesting small ischemic gliotic foci from microvascular disease with periventricular capping of the T2 white matter in the frontal areas part of the normal aging process. No evidence of acute infarction. The cerebellopontine angles, cerebellum, and brainstem have unremarkable appearance. The pituitary, optic chiasm, corpus callosum, craniocervical junction appearance. No mastoid effusion or sinus air-fluid level. IMPRESSION: No acute intracranial findings. Dictated by: Stephen Odonnell MD 11/14/2020 07:50 Stephen Odonnell MD in [place] 11/14/2020 07:50
== END ==
PROVIDERS: PCP Nurse Practitioner; Visit Provider Nurse Practitioner Family
DX: R42 Dizziness and giddiness (principal); R00.0 Tachycardia, unspecified; F12.90 Cannabis use, unspecified, uncomplicated; G47.00 Insomnia, unspecified; G47.8 Other sleep disorders; G47.9 Sleep disorder, unspecified; Z72.0 Tobacco use
CPT/HCPCS: 70544; 70551; 93270

== ENCOUNTER → 2020-12-08 17:00 | Outpatient (CLI) | payer MEDICAID, SELFPAY | PROVIDERS: PCP Nurse Practitioner; Visit Provider Nurse Practitioner | DX: Z20.822 Contact with and (suspected) exposure to COVID-19 (principal) | CPT/HCPCS: C9803; U0003; U0005 ==

== ENCOUNTER → 2020-12-09 14:14 | Outpatient (CLI) | payer MEDICAID, SELFPAY ==
--- NOTE | 2020-12-09 | ECG_ITS ---
APPROVED REPORT Exam: Resting ECG HR:48 bpm ECG Measurements Heart Rate 48 AXES QRSd 119 QRS 66 QT 550 T 58 QTc 515 Conclusion ATRIAL FLUTTER/TACHYCARDIA WITH SLOW VENTRICULAR RESPONSE MODERATE INTRAVENTRICULAR CONDUCTION DELAY [110+ ms QRS DURATION] MODERATE T-WAVE ABNORMALITY, CONSIDER ANTEROLATERAL ISCHEMIA [-0.1+ mV T-WAVE IN V3-V6] PROLONGED QT INTERVAL CRITICAL TEST RESULT UNCONFIRMED REPORT Electronically signed by : Favian Willard MD 03/18/2022 21:27:06
[2020-12-09 14:19] LABS: Coronavirus 19, PCR Not Detected (NotDetected); Influenza A, PCR Not Detected (NotDetected); Influenza B, PCR Not Detected (NotDetected)
[2020-12-09 14:21] LABS: Microscopic, Urine URINE MICROSCOPIC (MICROSCOPIC)
--- NOTE | 2020-12-09 14:36 | XR_ITS ---
PROCEDURE: XR CHEST 2V CLINICAL HISTORY: HTN,CURRENT SMOKER COMPARISON: CT CTAC CTA-CHEST from 05/13/2016 CR CXR2V XR chest 2V from 03/24/2017 CR [id number] XR ribs LT min 3V w CXR1V from 04/01/2017 CR CXR2 XR chest AP from 05/16/2017 FINDINGS: The cardiomediastinal silhouette and pulmonary vascularity are within normal limits. COPD/emphysematous change. No lobar consolidation or collapse. There is an old left distal clavicular fracture IMPRESSION: COPD/emphysema. No change with no acute finding. Dictated by: Stephen Odonnell MD 12/09/2020 15:07 Stephen Odonnell MD in [place] 12/09/2020 15:07
[2020-12-09 15:00] LABS: Appearance,Urine CLEAR (Clear); Bilirubin,Urine Negative (Negative); Blood, Urine TRACE-I (Negative); Color,Urine ORANGE (Yellow); Glucose,Urine (UA) Negative (Negative); Ketones,Urine Negative (Negative); Leukocyte Esterase,Urine Negative (Negative); Nitrate,Urine Negative (Negative); Protein,Urine Negative (Negative); Specific Gravity, Urine >= 1.030 (1.005-1.030)
[2020-12-09 15:00] LABS: Basophils # 0.1 K/mm3 (0-0.2); Basophils % 1.1 % (0.1-2.0); Eosinophils # 0.3 K/mm3 (0.0-0.4); Eosinophils % 3.5 % (0.1-12.0); Hematocrit 45.4 % (37.0-47.0); Hemoglobin 14.9 g/dL (12.2-16.2); Lymphocytes # 2.4 K/mm3 (0.7-4.5); Lymphocytes % 29.8 % (10-50); Mean Corpuscular HGB Conc 32.9 g/dL (31.8-35.4); Mean Corpuscular Hemoglobin 34.1 pg (27.0-31.2); Mean Corpuscular Volume 103.6 fl (81-99); Mean Platelet Volume 8.5 fl (7.4-10.4); Monocytes # 0.6 K/mm3 (0.1-1.0); Monocytes % 7.1 % (1.7-9.3); Neutrophils # 4.6 K/mm3 (1.8-7.8); Neutrophils % 58.4 % (37.0-80.0); Platelet Count 370 K/mm3 (142-424); Red Blood Count 4.38 M/mm3 (4.20-5.40); Red Cell Distribution Width 12.7 % (11.5-17.5); White Blood Count 7.9 K/mm3 (4.8-10.8)
[2020-12-09 15:13] LABS: Alanine Aminotransferase 26 U/L (12-78); Albumin Level 4.4 g/dl (3.5-5.0); Albumin/Globulin Ratio 1.4 (1.1-1.8); Alkaline Phosphatase 93 U/L (38-126); Anion Gap 9.2 mEq/L (5-15); Aspartate Amino Transferase 39 U/L (14-36); Bilirubin,Total 0.8 mg/dl (0.2-1.3); Blood Urea Nitrogen 11 mg/dl (7-17); Calcium 9.8 mg/dl (8.4-10.2); Carbon Dioxide 32 mmol/L (22.0-30.0); Chloride 105 mmol/L (98-107); Chol/HDL Ratio 2.6 (1-3.5); Cholesterol 220 mg/dl (140-200); Estimated Glomerular Filt Rate 103 ml/min (>60); GFR (African American) 125 ML/MIN (>60); Globulin 3.2 g/dL (1.3-3.2); Glucose 98 mg/dl (74-100); HDL Cholesterol 85 mg/dl (40-60); Potassium 4.2 mmoL/L (3.5-5.1); Sodium 142 mmol/L (136-145); Total Protein,Serum 7.6 g/dl (6.3-8.2); Triglycerides 118 mg/dl (30-150); VLDL Cholesterol 24 mg/dL (0-40)
[2020-12-09 15:23] LABS: WBC,Urine Occasional #/hpf (0-3)
[2020-12-09 15:44] LABS: Thyroid Stimulating Hormone 0.33 uIU/mL (0.465-4.68)
[2020-12-09 16:19] LABS: Vitamin B12 338 pg/mL (239-931)
== END ==
PROVIDERS: Nurse Practitioner Family; Visit Provider Orthopaedic Surgery Adult Reconstructive Orthopaedic Surgery
DX: Z20.822 Contact with and (suspected) exposure to COVID-19 (principal); R00.0 Tachycardia, unspecified; R42 Dizziness and giddiness; F12.90 Cannabis use, unspecified, uncomplicated; G47.00 Insomnia, unspecified; G47.8 Other sleep disorders; G47.9 Sleep disorder, unspecified; Z72.0 Tobacco use
CPT/HCPCS: 36415; 71046; 80053; 80061; 81001; 82607; 82746; 84443; 85025; 93005; C9803; U0003; U0005

== ENCOUNTER 2021-01-09 17:23 | Inpatient (IN) | payer MEDICAID, SELFPAY ==
[2021-01-09] VITALS (12 sets, daily range): BP systolic 100–162; BP diastolic 75–101; PULSE 62–154; RESP 17–32; TEMP 36.6–37; O2SAT 93–97; BMI 23.7; BMI 25.0
--- NOTE | 2021-01-09 17:16 | ECG_ITS ---
APPROVED REPORT Exam: Resting ECG HR:151 bpm ECG Measurements Heart Rate 151 AXES CA 114 P 86 QRSd 100 QRS 88 QT 278 T 248 QTc 440 Conclusion Sinus tachycardia Inferior infarct, age undetermined ST & T wave abnormality, consider anterolateral ischemia Abnormal ECG Electronically signed by : Favian Willard MD 01/10/2021 20:39:17
--- NOTE | 2021-01-09 17:27 | XR_ITS ---
PROCEDURE INFORMATION: Exam: XR Chest Exam date and time: 01/09/2021 5:27 PM Age: 60 years old Clinical indication: Cough and shortness of breath; Smoker's cough; Additional info: Cough/ SOA TECHNIQUE: Imaging protocol: XR of the chest. Views: 1 view. COMPARISON: CR XR CHEST 2V 12/09/2020 2:38 PM FINDINGS: Lungs: Interstitial opacities bilaterally concerning for moderate interstitial pneumonia. Granulomatous changes. Pleural spaces: Unremarkable. No pleural effusion. No pneumothorax. Heart/Mediastinum: Unremarkable. No cardiomegaly. Bones/joints: There is previous resection of the bilateral distal clavicles. IMPRESSION: Moderate interstitial pneumonia.
[2021-01-09 17:55] LABS: Basophils # 0.1 K/mm3 (0-0.2); Basophils % 1.1 % (0.1-2.0); Eosinophils # 0.1 K/mm3 (0.0-0.4); Eosinophils % 1.4 % (0.1-12.0); Hematocrit 39.3 % (37.0-47.0); Hemoglobin 12.9 g/dL (12.2-16.2); Lymphocytes # 1.7 K/mm3 (0.7-4.5); Lymphocytes % 19.1 % (10-50); Mean Corpuscular HGB Conc 32.7 g/dL (31.8-35.4); Mean Corpuscular Hemoglobin 34.3 pg (27.0-31.2); Mean Corpuscular Volume 104.9 fl (81-99); Mean Platelet Volume 8.5 fl (7.4-10.4); Monocytes # 0.6 K/mm3 (0.1-1.0); Monocytes % 7.1 % (1.7-9.3); Neutrophils # 6.5 K/mm3 (1.8-7.8); Neutrophils % 71.4 % (37.0-80.0); Platelet Count 307 K/mm3 (142-424); Red Blood Count 3.75 M/mm3 (4.20-5.40); Red Cell Distribution Width 13.9 % (11.5-17.5); White Blood Count 9.1 K/mm3 (4.8-10.8)
[2021-01-09 17:57] LABS: Chloride 106 mmol/L (98-107)
[2021-01-09 17:58] LABS: Potassium 4.2 mmoL/L (3.5-5.1); Sodium 141 mmol/L (136-145)
[2021-01-09 18:00] LABS: Alanine Aminotransferase 62 U/L (12-78); Alkaline Phosphatase 154 U/L (38-126); Aspartate Amino Transferase 87 U/L (14-36); Bilirubin,Total 0.5 mg/dl (0.2-1.3); Blood Urea Nitrogen 15 mg/dl (7-17); Estimated Glomerular Filt Rate 164 ml/min (>60); GFR (African American) 198 ML/MIN (>60)
[2021-01-09 18:01] LABS: Albumin Level 4.1 g/dl (3.5-5.0); Albumin/Globulin Ratio 1.3 (1.1-1.8); Anion Gap 10.2 mEq/L (5-15); Carbon Dioxide 29 mmol/L (22.0-30.0); Globulin 3.1 g/dL (1.3-3.2); Glucose 106 mg/dl (74-100); Total Protein,Serum 7.2 g/dl (6.3-8.2)
[2021-01-09 18:02] LABS: Activated Partial Thrombo Time 25.6 seconds (22.8-30.6); INR 1.01 (0.9-1.1); Prothrombin Time 11.4 seconds (10.1-12.5)
[2021-01-09 18:03] LABS: Coronavirus 19, PCR Not Detected (NotDetected); Influenza A, PCR Not Detected (NotDetected); Influenza B, PCR Not Detected (NotDetected)
--- NOTE | 2021-01-09 18:09 | PC.NURSE ---
RT at bedside
[2021-01-09 18:14] LABS: Troponin I 0.11 ng/ml (0.00-0.034)
[2021-01-09 18:17] LABS: NT Pro Brain Natriuretic Pep. 2500 pg/mL (0-125)
--- NOTE | 2021-01-09 18:17 | PC.NURSE ---
PT arrived with heart rate in 150's. IV access attempted x 1, vein blew. MD at bedside with US and established 20g in the let forearm and labs were drawn with no complications. PT sats dropped to low 90's/80's, O2 was turned back on to 4lpm and pt advised she felt much better. Pt given cardizem bolus at this time. Heart rate decreased to 80's. Cardizem drip established at this time.
[2021-01-09 18:24] LABS: ABG Base Excess 0.1 mmol/L (-2.4-2.3); ABG HCO3 24.9 mmhg (22.0-26.0); ABG Oxygen Saturation 96 % (90-100); ABG PO2 80.5 mmhg (80-100); ABG TCO2 26.1 mmhg (23-27)
[2021-01-09 18:25] LABS: Allen's Test Acceptable; Oxygen 4l %; Source Left Radial
--- NOTE | 2021-01-09 18:27 | HMH.EDARPALP ---
ED Disposition Clinical Impression: Atrial flutter with rapid ventricular response, COPD (chronic obstructive pulmonary disease) with acute bronchitis CHF (congestive heart failure) Qualifiers: Heart failure type: unspecified Heart failure chronicity: unspecified Qualified Code(s): I50.9 - Heart failure, unspecified Disposition: Admitted As Inpatient Condition on Discharge: Fair Referrals: Solange Mills APRN [Primary Care Provider] - - Critical Care Critical Care Time: No Attestation: On 01/09/21, the high probability of a clinically significant, sudden or life threatening deterioration of the following system(s) required my full and direct attention, intervention and personal management. The time I documented below is in addition to time spent performing reported procedures but includes the following listed in this critical care notation. Medical Decision Making - Medical Records Medical records reviewed: Yes: I reviewed the patient's medical records. - Alberto Inquiry Pt receiving controlled substance: No Vital Signs: 01/09/21 17:24 01/09/21 17:43 01/09/21 17:52 Temperature 98.3 F Temperature Source Oral Pulse Rate 149 H 147 H Pulse Rate [Right] 154 H Respiratory Rate 22 32 H 17 Blood Pressure 100/75 L 128/96 H Blood Pressure [Right Arm] 150/98 H Blood Pressure Mean [Right Arm] 115 Blood Pressure Source [Right Arm] Automatic Cuff Blood Pressure Position [Right Arm] Sitting 02 Sat by Pulse Oximetry 93 L 93 L 93 L Oxygen Delivery Method Room Air 01/09/21 17:58 01/09/21 18:10 01/09/21 18:20 Temperature Temperature Source Pulse Rate 62 81 78 Pulse Rate [Right] Respiratory Rate 22 22 23 Blood Pressure 124/95 H 127/94 H 130/98 H Blood Pressure [Right Arm] Blood Pressure Mean [Right Arm] Blood Pressure Source [Right Arm] Blood Pressure Position [Right Arm] 02 Sat by Pulse Oximetry 95 96 96 Oxygen Delivery Method 01/09/21 18:26 01/09/21 18:30 Temperature Temperature Source Pulse Rate 71 104 H Pulse Rate [Right] Respiratory Rate 24 Blood Pressure 139/94 H Blood Pressure [Right Arm] Blood Pressure Mean [Right Arm] Blood Pressure Source [Right Arm] Blood Pressure Position [Right Arm] 02 Sat by Pulse Oximetry 97 Oxygen Delivery Method - Lab Data Lab Results 01/09/21 17:43: WBC 9.1, RBC 3.75 L, Hgb 12.9, Hct 39.3, MCV 104.9 H, MCH 34.3 H, MCHC 32.7, RDW 13.9, Plt Count 307, MPV 8.5, Neut % (Auto) 71.4, Lymph % (Auto) 19.1, [place] % (Auto) 7.1, Eos % (Auto) 1.4, Baso % (Auto) 1.1, Neut # (Auto) 6.5, Lymph # (Auto) 1.7, [place] # (Auto) 0.6, Eos # (Auto) 0.1, Baso # (Auto) 0.1 01/09/21 17:43: Sodium 141, Potassium 4.2, Chloride 106, Carbon Dioxide 29, Anion Gap 10.2, BUN 15, Creatinine 0.40 L, Estimated GFR 164, Est GFR ( Amer) 198, Glucose 106 H, Calcium 9.0, Total Bilirubin 0.5, AST 87 H, ALT 62, Alkaline Phosphatase 154 H, Troponin I 0.11 H, Total Protein 7.2, Albumin 4.1, Globulin 3.1, Albumin/Globulin Ratio 1.3, TSH 1.23 01/09/21 17:43: PT 11.4, INR 1.01, APTT 25.6 01/09/21 17:43: NT-Pro-B Natriuret Pep 2500 H 01/09/21 17:48: SARS-CoV-2 (PCR) Not detected, Influenza A Untype (PCR) Not detected, Influenza Type B (PCR) Not detected 01/09/21 18:00: Specimen Source Left radial, O2 % 4l, ABG pH 7.40, ABG pCO2 41.0, ABG pO2 80.5, ABG HCO3 24.9, ABG Total CO2 26.1, ABG O2 Saturation 96, ABG Base Excess 0.1, Stephen Test Acceptable Result diagrams: 01/09/21 17:43 01/09/21 17:43 Orders (Tests/Meds): ED MEDICATIONS Generic Name Dose Route Start Last Admin Trade Name Freq PRN Reason Stop Dose Admin Diltiazem HCl 100 mg/ Sodium 100 mls @ 5 mls/hr 01/09/21 17:30 01/09/21 18:26 Chloride IV 02/08/21 17:29 5 mls/hr .Q20H AINSLEY Administration Protocol Sodium Chloride 1,000 mls @ 999 mls/hr 01/09/21 17:30 01/09/21 17:45 Sod Chlor 0.9% 1000ml Bag IV 01/09/21 18:30 999 mls/hr .Q1H1M AINSLEY Administration Disconti
--- NOTE | 2021-01-09 18:31 | CT_ITS ---
PROCEDURE INFORMATION: Exam: CTA Chest With Contrast Exam date and time: 01/09/2021 6:31 PM Age: 60 years old Clinical indication: Prior surgery; Surgery date: <1 month; Patient HX: Severe shortness of breath, smoker. Right shoulder surgery per patient 12/11/2020; Additional info: Short of breath TECHNIQUE: Imaging protocol: Computed tomographic angiography of the chest with contrast. 3D rendering (Not supervised by radiologist): MIP and/or 3D reconstructed images were created by the technologist. Total images: 316 Radiation optimization: All CT scans at this facility use at least one of these dose optimization techniques: automated exposure control; mA and/or kV adjustment per patient size (includes targeted exams where dose is matched to clinical indication); or iterative reconstruction. Contrast material: ISOVUE 370; Contrast volume: 70 ml; Contrast route: INTRAVENOUS (IV); COMPARISON: [facility] [place] CTA-CHEST 05/13/2016 6:29 PM FINDINGS: Pulmonary arteries: The pulmonary arteries enhance appropriately with no evidence of pulmonary embolism. Aorta: Early phase enhancement mildly limits the aortic assessment although there are no gross findings of dissection. Mild-moderate aortic ectasia without aneurysm. Mild calcific atherosclerosis. No mediastinal hematoma. Thyroid: The visualized thyroid gland demonstrates no gross abnormality. Lungs: Moderate-severe emphysematous changes in the upper lung ignacio. Mild bilateral bronchial wall thickening suggesting an element of bronchitis or bronchial edema, with no evidence of bronchiectasis or bronchial occlusions. Interlobular septal thickening in the lung bases with additional peripheral juxtapleural interstitial prominence suspicious for mild element of interstitial edema. No alveolar edema or consolidative infiltrates. No pulmonary mass lesions are identified. Pleural spaces: Mild bilateral apical pleural/parenchymal scarring. No pleural effusion. No pneumothorax. Heart: Mild cardiomegaly. Small pericardial effusion distributed primarily in the superior pericardial recesses. Mediastinal space: The esophagus is largely contracted but demonstrates no gross abnormality. Lymph nodes: No supraclavicular or axillary adenopathy. Borderline enlarged subcarinal and bilateral hilar nodes, nonspecific. Gallbladder and bile ducts: Cholecystectomy. Small amount of fluid tracking in the gallbladder fossa is consistent with expected postoperative fluid. Nondilated bile ducts. No evidence to suggest abscess, hematoma, or bile leak. Bones/joints: No acute osseous abnormalities are identified. Osteopenia. There are few chronic appearing anterolateral lower right rib fractures. Chronic lateral left 11th rib fracture. Soft tissues: The soft tissues of the chest wall demonstrate no acute abnormality. IMPRESSION: 1. No evidence of pulmonary embolism or aortic dissection. 2. Moderate-severe emphysematous changes involving primarily the upper lung ignacio bilaterally. 3. Mild cardiomegaly with basilar interstitial prominence and interlobular septal thickening suspicious for possible superimposed element of CHF and interstitial edema. No gross alveolar edema or consolidative pulmonary infiltrates. No pleural effusion. Mild bilateral bronchial wall thickening may relate to bronchial edema or mild bronchitis. 4. Borderline enlarged subcarinal and bilateral hilar nodes, nonspecific. 5. Evidence of recent cholecystectomy without gross complication. 6. Additional nonemergent findings detailed above.
[2021-01-09 18:32] LABS: Thyroid Stimulating Hormone 1.23 uIU/mL (0.465-4.68)
--- NOTE | 2021-01-09 18:52 | PC.NURSE ---
PT to CT
--- NOTE | 2021-01-09 19:06 | PC.NURSE ---
Pr returned from CT. Cardizem drip restarted at this time
--- NOTE | 2021-01-09 19:35 | PC.NURSE ---
Dr. Jack s/w Dr. Barone for poss admit (service pt)
--- NOTE | 2021-01-09 19:40 | PC.NURSE ---
tnt line supervisor notified for step-down bed
--- NOTE | 2021-01-09 20:13 | PC.NURSE ---
attempted to call report, bed not ready at this time.
--- NOTE | 2021-01-09 22:01 | PC.NURSE ---
pt arrived via stretcher at this time
[2021-01-09 23:30] LABS: Microscopic, Urine URINE MICROSCOPIC (MICROSCOPIC)
[2021-01-09 23:36] LABS: Appearance,Urine CLEAR (Clear); Bilirubin,Urine Negative (Negative); Blood, Urine Negative (Negative); Color,Urine YELLOW (Yellow); Glucose,Urine (UA) Negative (Negative); Ketones,Urine Negative (Negative); Leukocyte Esterase,Urine Negative (Negative); Nitrate,Urine Negative (Negative); Protein,Urine Negative (Negative); Urobilinogen,Urine 0.2 EU/dl (0.2)
[2021-01-09 23:51] LABS: WBC,Urine Occasional #/hpf (0-3)
[2021-01-10] VITALS (31 sets, daily range): BP systolic 80–150; BP diastolic 47–109; PULSE 68–90; RESP 13–22; TEMP 36.6–37.2; O2SAT 92–99; BMI 24.9
--- NOTE | 2021-01-10 | IR_ITS ---
APPROVED REPORT Patient Location: Inpatient Bus Girl: RYAN Marin RT (R) PROCEDURES Left heart catheterization Left ventriculogram Selective coronary angiogram Direct-current cardioversion INDICATION New onset cardiomyopathy, Cardiogenic shock, Atrial fibrillation Informed consent was obtained prior to the procedure. COMPLICATIONS None Estimated Blood Loss: Less than 10 mls TECHNIQUE One percent lidocaine was used to anesthetize the right groin. The right femoral artery was accessed via the Seldinger technique. A 4-[place] sheath was placed in the right femoral artery. The JL-4 and JR-4 catheter was also used to perform left heart catheterization left ventriculogram and selective coronary angiogram. Patient was hypotensive and previously was in cardiogenic shock earlier this morning. Because of this it was felt cardioversion should proceed. 2 shocks were delivered 1 at 50 and 1 at 100 J of synchronized electricity successfully converting patient to either an accelerated junctional rhythm or sinus rhythm with low atrial amplitude. At the end of the procedure patient was transferred to postop holding area in stable condition ANGIOGRAPHIC RESULTS The left main artery Normal The left anterior descending artery Normal The circumflex artery Normal The right coronary artery Large dominant normal The MINER ventriculogram reveals Severely dilated ejection fraction 25% The left ventricular end-diastolic pressure 15 mmHg IMPRESSION Normal coronary arteries Cardiomyopathy with mildly elevated LVEDP Successful cardioversion to regular rhythm PLAN 1. Patient requires full dose Lovenox as well as starting Xarelto 20 mg daily for atrial fibrillation 2. Continue amiodarone drip and then loaded orally 3. Standard therapy for cardiomyopathy including Entresto and carvedilol 4. Patient has had large diuresis within the last couple of hours and is in more stable condition. Judicious use of diuretics 5. Consider LifeVest prior to discharge Electronically signed by : Brad Toscano MD 01/10/2021 11:56:27
[2021-01-10 06:27] LABS: Basophils # 0.2 K/mm3 (0-0.2); Basophils % 1.6 % (0.1-2.0); Eosinophils # 0.1 K/mm3 (0.0-0.4); Eosinophils % 0.7 % (0.1-12.0); Hematocrit 45.7 % (37.0-47.0); Lymphocytes # 1.8 K/mm3 (0.7-4.5); Lymphocytes % 17.6 % (10-50); Mean Corpuscular HGB Conc 32.6 g/dL (31.8-35.4); Mean Corpuscular Hemoglobin 34.3 pg (27.0-31.2); Mean Corpuscular Volume 105.2 fl (81-99); Mean Platelet Volume 9.1 fl (7.4-10.4); Monocytes % 9.6 % (1.7-9.3); Neutrophils # 7.2 K/mm3 (1.8-7.8); Neutrophils % 70.4 % (37.0-80.0); Platelet Count 336 K/mm3 (142-424); Red Blood Count 4.34 M/mm3 (4.20-5.40); Red Cell Distribution Width 13.8 % (11.5-17.5); White Blood Count 10.2 K/mm3 (4.8-10.8)
[2021-01-10 07:07] LABS: Chloride 98 mmol/L (98-107); Sodium 139 mmol/L (136-145)
[2021-01-10 07:08] LABS: Potassium 3.5 mmoL/L (3.5-5.1)
[2021-01-10 07:11] LABS: Anion Gap 11.5 mEq/L (5-15); Blood Urea Nitrogen 10 mg/dl (7-17); Calcium 9.2 mg/dl (8.4-10.2); Carbon Dioxide 33 mmol/L (22.0-30.0); Creatinine Clearance Estimated 156 mL/min (50-200); Estimated Glomerular Filt Rate 127 ml/min (>60); GFR (African American) 153 ML/MIN (>60); Glucose 103 mg/dl (74-100)
--- NOTE | 2021-01-10 08:08 | P.CONPHA_ITS ---
[facility] Pharmacy VTE Monitoring - Patient Demographics Admission date: 01/09/21 Report Date: 01/10/21 Time: 08:08 Allergies/Adverse Reactions: Patient Allergies penicillin G [PENICILLIN G] Allergy (Mild, Verified 11/04/20 09:37) I-RASH/NV acetaminophen [ACETAMINOPHEN] Adverse Reaction (Mild, Verified 11/04/20 09:37) NOT ALLERGIC. NEED TO WATCH DUE TO LIVER Height: 1.8 m Weight: 80.785 kg Patient Problems: Current Active Problems Atrial flutter with rapid ventricular response (Acute) CHF (congestive heart failure) (Acute) COPD (chronic obstructive pulmonary disease) with acute bronchitis (Acute) - VTE Risk Labs: VTE Related Lab Results Hgb 15.0 g/dL (12.2-16.2) D 01/10/21 05:15 Hct 45.7 % (37.0-47.0) 01/10/21 05:15 Plt Count 336 K/mm3 (142-424) 01/10/21 05:15 PT 11.4 seconds (10.1-12.5) 01/09/21 17:43 INR 1.01 (0.9-1.1) 01/09/21 17:43 APTT 25.6 seconds (22.8-30.6) 01/09/21 17:43 BUN 10 mg/dl (7-17) D 01/10/21 05:15 Creatinine 0.50 mg/dl (0.52-1.04) L D 01/10/21 05:15 Estimated Creat Clear 156 mL/min (50-200) 01/10/21 05:15 VTE Score: 4 VTE Risk Level: Low Risk - Prophylaxis VTE Prophylaxis Ordered?: Yes Types of VTE Prophylaxis: TEDS Knee High, Pharmacological Location of Applied Device: Bilateral Lower Extremeties Pharmacologic Type: Enoxaparin
--- NOTE | 2021-01-10 08:57 | CA_ITS ---
APPROVED REPORT EXAM: Comprehensive 2D, Doppler, and color-flow Echocardiogram Shipping Receiving Manager: Eleanor Unger RVT Ht: 5 ft 11 in Wt: 178lbs BSA: 2.01 BP: 000/00 mmHg Indications: A-FIB,COPD,SMOKER,PALPS,SOA,HTN 2D Dimensions LVOT 2.16 cm (M/F) 1.5-2.5 LA Volume 74.00 mL LA Volume Index 37.00 mL/m2 (M/F) 16-34 M-Mode Dimensions RVDd 2.59 cm (0.9-2.6) LA Diam 3.66 cm (1.9-4.0) LVDd 5.37 cm (3.5-5.7) Ao Diam 3.83 cm (2.0-3.7) LVDs 3.92 cm (3.5-5.7) IVSd 0.93 cm (0.6-1.1) PWd 0.62 cm (0.6-1.1) EF (Teich) 42.00% FS 27.00% EDV (Teich) 139.50 mL TAPSE 1.78 (<1.7) ESV (Teich) 66.70 mL LV Diastology E Decel Time 163.00 (160-240 msec) E/A Ratio 1.4 MED E' 7.40 (< 7 cm/sec) E'/MED E' Ratio 11.78 (>14) LAT E' 9.50 (<10 cm/sec) E/LAT E' Ratio 9.18 (>14) Mitral Valve MV E Max Tae. 87.00 (40-130 cm/s) MV A Velocity 63.00 (40-130 cm/s) E/A Ratio 1.39 MV Decel. Time 163.00 (160-240 ms) MV PHT 48.00 ms Pulmonary Valve PV Peak Velocity 85.00 (50-150 cm/s) Tricuspid Valve TR P. Velocity 159.00 cm/s RAP Estimate 10.00 mmHg RVSP 20.10 mmHg Left Ventricle Left atrium is mildly enlarged, left ventricle is mildly dilated, there is severely reduced left ventricular systolic function, visually estimated ejection fraction 20-25%, there is marked hypokinesis involving mid to distal septum, anterior, anterior apical and apical wall. Diastolic parameters are inconclusive. Right Ventricle Right atrium and right ventricle mildly enlarged with normal contractility. Aortic Valve Aortic valve is minimally thickened and fibrosed, there is no aortic stenosis or aortic insufficiency. Mitral Valve Mitral valve is grossly normal, there is mild mitral regurgitation Tricuspid Valve Tricuspid valve grossly normal, there is trace tricuspid regurgitation, tricuspid regurgitation jet velocity is inadequate for calculation of the right ventricular systolic pressure. Pulmonic Valve Pulmonic valve is poorly visualized. Great Vessels Aortic root is normal size. Inferior vena cava is mildly dilated without significant inspiratory collapse. Pericardium No significant pericardial effusion noted. Conclusion 1. Biatrial enlargement, mildly dilated left ventricle, severe reduced left ventricular systolic function, visually estimated ejection fraction 25%, with multiple segmental wall motion abnormality described above, diastolic parameters are inconclusive. 2. Mild mitral and trace tricuspid regurgitation. 3. No significant pericardial effusion noted. 4. Inferior vena cava is mildly dilated without significant inspiratory collapse. Electronically signed by : Don Mtz MD 01/10/2021 16:02:38
--- NOTE | 2021-01-10 09:07 | HMH.HP ---
*Admission Date: 01/09/21 *Chief complaint: fast hr *History of present illness: 60-year-old female presented to the emergency department with some palpitations and shortness of breath via EMS. The patient with history of COPD. Patient reports she had shoulder repair done earlier this month. Patient states that for the last 2 days she has been very short of breath. Patient states she feels she can not catch her breath. Patient states it felt like her heart was pounding on her chest. Patient was found to be in Aflutter with avr and admitted on [facility] and cardiology consult with work up. [facility] History I have reviewed the patient's past medical history: Yes Medical History: Reports:: Anxiety, Congestive Heart Failure, Depression, Hyperlipidemia, Hypertension Denies:: Cancer, Diabetes Mellitus Type 1, Diabetes Mellitus Type 2, Internal Pacemaker, MRSA *Have you ever received a pneumonia vaccine?: No *Have you received a flu vaccine this season?: No Other Medical History: Reports: Arthritis, Liver Disease (Hepatitis C), Thyroid Disease Laterality Cases: Right: Carpal Tunnel Release Other Surgeries: Yes: Cholecystectomy, Hysterectomy-Total, Thyroidectomy, Tubal Ligation, Other (jaw, hysterectomy). No: Pacemaker Amputation: No Fractures: Yes - *Social History Last grade of school completed: High school graduate Smoking Status: Current every day smoker Tobacco Type: cigarettes # Packs/Day (cigarettes): 1 Alcohol Intake: never Alcohol Intake Frequency:: holidays/special occasions only Substance Use Type: denies use *Occupational Status:: disabled Housing: house Household Members: none *Travel in the last 8 weeks: None - Psychiatric History Pschychiatric History:: Reports:: Anxiety, Depression Family Hx:: Non-contributory Review of Systems - Review of Systems Review of systems:: pertinent systems reviewed and negative unless documented below - Constitutional Reports malaise, Denies body ache(s), Denies lack of energy - Eyes Denies blurry vision - ENT Denies abnormal hearing - *Cardiovascular Reports shortness of breath, Reports shortness of breath with activity, Denies chest pain - *Respiratory Reports shortness of breath, Reports shortness of breath with activity - *Gastrointestinal Denies abdominal pain - *Genitourinary Denies abnormal periods - *Musculoskeletal Denies abnormal walking - Integumentary/Breasts Denies hair loss - *Neurologic Denies abnormal hearing, Denies headache(s) - Psychiatric Denies abnormal sleep pattern - Endocrine Denies cold intolerance - Hematologic/Lymphatic Denies easy bleeding - Allergic/Immunologic Denies GI upset with certain foods Meds Home Medications Medication Instructions Recorded Confirmed Type duloxetine 30 mg capsule,delayed 30 mg PO DAILY cap 11/04/20 01/09/21 History release gabapentin 600 mg tablet 600 mg PO DAILY tab 11/04/20 01/09/21 History levothyroxine 125 mcg tablet 125 mcg PO DAILY tab 11/04/20 01/09/21 History losartan 100 mg tablet 100 mg PO DAILY tab 11/04/20 01/09/21 History meclizine 25 mg tablet 25 mg PO BID PRN tab 11/04/20 01/09/21 History pantoprazole 40 mg tablet,delayed 40 tab PO DAILY 11/04/20 01/09/21 History release pravastatin 80 mg tablet 80 mg PO DAILY tab 11/04/20 01/09/21 History Albuterol Sulfate [Albuterol 1.25 mg IH DAILY 01/09/21 01/09/21 History 0.042% 1.25mg/3mL neb] Citalopram Hydrobromide 10 mg PO DAILY 01/09/21 01/09/21 History [Citalopram HBr] Famotidine 40 mg PO DAILY 01/09/21 01/09/21 History Tizanidine HCl [Tizanidine HCl 2 mg PO BID PRN 01/09/21 01/09/21 History 2mg] Allergies Allergy/AdvReac Type Severity Reaction Status Date / Time penicillin G [PENICILLIN G] Allergy Mild I-RASH/NV Verified 11/04/20 09:37 acetaminophen [ACETAMINOPHEN] AdvReac Mild NOT Verified 11/04/20 09:37 ALLERGIC. NEED TO WATCH DUE TO LIVER Exam Vital signs and
--- NOTE | 2021-01-10 09:38 | HMH.PHAINT ---
MEDICATION RECONCILIATION COMPLETED ON PATIENT USING EXTERNAL FILL HISTORY FROM PHARMACY. -DANDY SMITH, RADHAD
--- NOTE | 2021-01-10 10:04 | HMH.CNCARD ---
<Dea Hargrove - Last Filed: 01/10/21 10:04> History of Present Illness Consult date: 01/10/21 Requesting physician: Jameel Tate Consult reason: shortness of breath Chief complaint: SOA History of present illness: This is a 60-year-old white female who presented to the emergency department with complaints of shortness of breath and palpitations. The patient has a longstanding history of COPD and recently had a right shoulder repair surgery done within the last month. The patient states that for the last 2 days she has been very short of breath. She states that this was severe and just felt like she could not catch her breath at all. This was worse with exertion. It got better with rest but did not completely resolve. She states yesterday she started having palpitations and pounding of the heart with the shortness of breath. She states that this also became severe and that is when she called EMS. When EMS arrived and the patient was found to have an elevated heart rate with an irregular rhythm and the patient was brought here to [facility]. She denies any chest pain or pressure. She denies any lower extremity edema. She denies any fever, chills, nausea, vomiting, diarrhea, PND or orthopnea. The patient was given Lasix in the emergency department and diuresed almost 3 L. She states that her shortness of breath did improve but she still appears very short of breath today. Even just lying in the bed the patient is having profound shortness of breath and using accessory muscles. [facility] History I have reviewed the patient's past medical history: Yes Medical History: Reports:: Anxiety, Congestive Heart Failure, Depression, Hyperlipidemia, Hypertension Denies:: Cancer, Diabetes Mellitus Type 1, Diabetes Mellitus Type 2, Internal Pacemaker, MRSA *Have you ever received a pneumonia vaccine?: No *Have you received a flu vaccine this season?: No Other Medical History: Reports: Arthritis, Liver Disease (Hepatitis C), Thyroid Disease Laterality Cases: Right: Carpal Tunnel Release Other Surgeries: Yes: Cholecystectomy, Hysterectomy-Total, Thyroidectomy, Tubal Ligation, Other (jaw, hysterectomy). No: Pacemaker Amputation: No Fractures: Yes - *Social History Last grade of school completed: High school graduate Smoking Status: Current every day smoker Tobacco Type: cigarettes # Packs/Day (cigarettes): 1 Alcohol Intake: never Alcohol Intake Frequency:: holidays/special occasions only Substance Use Type: denies use *Occupational Status:: disabled Housing: house Household Members: none *Travel in the last 8 weeks: None - Psychiatric History Pschychiatric History:: Reports:: Anxiety, Depression Family Hx:: Non-contributory Meds Home Medications Medication Instructions Recorded Confirmed Type duloxetine 30 mg capsule,delayed 30 mg PO DAILY cap 11/04/20 01/09/21 History release gabapentin 600 mg tablet 600 mg PO DAILY tab 11/04/20 01/09/21 History levothyroxine 125 mcg tablet 125 mcg PO DAILY tab 11/04/20 01/09/21 History losartan 100 mg tablet 100 mg PO DAILY tab 11/04/20 01/09/21 History meclizine 25 mg tablet 25 mg PO BIDP PRN tab 11/04/20 01/10/21 History pantoprazole 40 mg tablet,delayed 40 mg PO DAILY 11/04/20 01/10/21 History release pravastatin 80 mg tablet 80 mg PO DAILY tab 11/04/20 01/09/21 History Albuterol Sulfate [Albuterol 1.25 mg IH Q4HP PRN 01/09/21 01/10/21 History 0.042% 1.25mg/3mL neb] Citalopram Hydrobromide 10 mg PO DAILY 01/09/21 01/09/21 History [Citalopram HBr] Famotidine 40 mg PO BID 01/09/21 01/10/21 History Tizanidine HCl [Tizanidine HCl 4 mg PO BIDP PRN 01/09/21 01/10/21 History 2mg] Albuterol Sulfate [Proair Hfa] 1 puff IH Q4HP PRN 01/10/21 01/10/21 History Amitriptyline HCl [Elavil 25mg 25 mg PO HS 01/10/21 01/10/21 History tablet] Budesonide/Formoterol Fumarate 2 puffs IH BID 01/10/21 01/10/21 History [Symbicort 160-4.5 Mcg Inhaler] Diclofenac Sodium [Diclofenac 75m
--- NOTE | 2021-01-10 10:47 | PC.NURSE ---
Pt off floor to lab technician at this time
--- NOTE | 2021-01-10 15:16 | PC.NURSE ---
Patient s/p cardiac cath, resting in bed with eyes closed, amiodarone drip infusing, remains on 3LNC, vss, no s/s of distress noted.
--- NOTE | 2021-01-10 16:30 | PC.NURSE ---
1020-Amiodarone 150mg bolus given 1030- Amiodarone drip initiated at 1mg/min 1630- Amiodarone drip titrated to 0.5mg/min
--- NOTE | 2021-01-10 21:52 | PC.NURSE ---
She is A&Ox4. She has received PRN zanflex for back pain that she rated a 8/10 and stated it was throbbing. She turns herself independently in bed. F/C patent with dark yellow, clear urine. She has been sitting up in bed eating chips. She reports her last BM was on 01/09/21.
[2021-01-11] VITALS (17 sets, daily range): BP systolic 90–129; BP diastolic 52–98; PULSE 78–100; RESP 18–34; TEMP 36.6–37; O2SAT 87–94; BMI 23.5
[2021-01-11 07:00] LABS: Basophils # 0.1 K/mm3 (0-0.2); Basophils % 0.7 % (0.1-2.0); Eosinophils # 0.3 K/mm3 (0.0-0.4); Eosinophils % 2.7 % (0.1-12.0); Hematocrit 45.2 % (37.0-47.0); Hemoglobin 14.6 g/dL (12.2-16.2); Lymphocytes # 2.2 K/mm3 (0.7-4.5); Lymphocytes % 22.1 % (10-50); Mean Corpuscular HGB Conc 32.3 g/dL (31.8-35.4); Mean Corpuscular Hemoglobin 33.7 pg (27.0-31.2); Mean Corpuscular Volume 104.5 fl (81-99); Mean Platelet Volume 8.5 fl (7.4-10.4); Monocytes # 0.9 K/mm3 (0.1-1.0); Monocytes % 8.6 % (1.7-9.3); Neutrophils # 6.6 K/mm3 (1.8-7.8); Neutrophils % 65.8 % (37.0-80.0); Platelet Count 343 K/mm3 (142-424); Red Blood Count 4.33 M/mm3 (4.20-5.40); Red Cell Distribution Width 13.7 % (11.5-17.5); White Blood Count 10.1 K/mm3 (4.8-10.8)
[2021-01-11 07:03] LABS: Chloride 99 mmol/L (98-107); Sodium 137 mmol/L (136-145)
[2021-01-11 07:04] LABS: Potassium 3.4 mmoL/L (3.5-5.1)
[2021-01-11 07:06] LABS: Alanine Aminotransferase 39 U/L (12-78); Albumin Level 3.7 g/dl (3.5-5.0); Alkaline Phosphatase 123 U/L (38-126); Anion Gap 6.4 mEq/L (5-15); Aspartate Amino Transferase 52 U/L (14-36); Bilirubin,Direct 0.1 mg/dl (0.0-0.4); Bilirubin,Indirect 0.3 mg/dL (0.0-0.9); Bilirubin,Total 0.4 mg/dl (0.2-1.3); Bilirubin,Unconjugated 0.4 mg/dL (0.0-1.1); Blood Urea Nitrogen 21 mg/dl (7-17); Calcium 8.6 mg/dl (8.4-10.2); Carbon Dioxide 35 mmol/L (22.0-30.0); Cholesterol 162 mg/dl (140-200); Creatinine Clearance Estimated 105 mL/min (50-200); Estimated Glomerular Filt Rate 86 ml/min (>60); GFR (African American) 104 ML/MIN (>60); Glucose 109 mg/dl (74-100); Total Protein,Serum 6.8 g/dl (6.3-8.2); Triglycerides 62 mg/dl (30-150); VLDL Cholesterol 12 mg/dL (0-40)
[2021-01-11 07:07] LABS: Chol/HDL Ratio 2.8 (1-3.5); HDL Cholesterol 57 mg/dl (40-60)
[2021-01-11 07:18] LABS: Direct LDL Cholesterol 77.39 mg/dL (100-129)
--- NOTE | 2021-01-11 08:35 | PC.NURSE ---
Kanchan @ [facility]
--- NOTE | 2021-01-11 10:36 | PC.NURSE ---
lo catheter discontinued per Dr. Tate.
--- NOTE | 2021-01-11 11:07 | HMH.ACPN2 ---
Internal Medicine - PN: Subj *Date: 01/12/21 *Time: 07:54 Interval history: doing better but still sob on o2 and in sinus - Exam Vital signs and Labs for Last 24 Hours: Temp Pulse Resp BP Pulse Ox 98.1 F 97 H 22 129/98 H 92 L 01/11/21 09:52 01/11/21 09:52 01/11/21 09:52 01/11/21 09:52 01/11/21 09:52 Laboratory Results - last 24 hr 01/11/21 06:34: WBC 10.1, RBC 4.33, Hgb 14.6, Hct 45.2, MCV 104.5 H, MCH 33.7 H, MCHC 32.3, RDW 13.7, Plt Count 343, MPV 8.5, Neut % (Auto) 65.8, Lymph % (Auto) 22.1, [place] % (Auto) 8.6, Eos % (Auto) 2.7, Baso % (Auto) 0.7, Neut # (Auto) 6.6, Lymph # (Auto) 2.2, [place] # (Auto) 0.9, Eos # (Auto) 0.3, Baso # (Auto) 0.1 01/11/21 06:34: Sodium 137, Potassium 3.4 L, Chloride 99, Carbon Dioxide 35 H, Anion Gap 6.4, BUN 21 H D, Creatinine 0.70 D, Estimated Creat Clear 105, Estimated GFR 86, Est GFR ( Amer) 104 D, Glucose 109 H, Calcium 8.6, Total Bilirubin 0.4, Direct Bilirubin 0.1, Conjugated Bilirubin 0.0, Indirect Bilirubin 0.3, Unconjugated Bilirubin 0.4, AST 52 H D, ALT 39 D, Alkaline Phosphatase 123, Total Protein 6.8, Albumin 3.7, Triglycerides 62, Cholesterol 162, LDL Cholesterol Direct 77.39 L, VLDL Cholesterol 12, HDL Cholesterol 57, Cholesterol/HDL Ratio 2.8 I & O for Last 24 hours: Intake & Output 01/08/21 01/09/21 01/10/21 01/11/21 11:59 11:59 11:59 11:59 Intake Total 1360 / 1360 862 / 862 Output Total 1999 3035 / 3035 Balance -640 / -640 -2173 / -2173 Weight 178 lb 1.6 oz 168 lb 1.6 oz - Constitutional no acute distress - *Routine HEENT Exam Head: Present: normocephalic Eye: Present: EOMI, PERRL ENT: Present: mucous membranes dry - *Routine Neck Exam Present: supple. Absent: JVD - *Routine Respiratory Exam Present: decreased breath sounds - *Routine Cardiovascular Exam Present: RRR - *Routine Abdominal Exam Present: soft - *Routine Extremities Exam Absent: calf tenderness - *Routine Skin Exam Present: intact - *Routine Neurological Exam Present: alert, CN II-XII intact - Routine Psychiatric Exam Present: cooperative Assessment and Plan (1) Non-STEMI (non-ST elevated myocardial infarction) Status: Acute Category: Medical Code(s): I21.4 - Non-ST elevation (NSTEMI) myocardial infarction (2) Elevated troponin Status: Acute Category: Medical Code(s): R77.8 - Other specified abnormalities of plasma proteins (3) Systolic congestive heart failure Status: Acute Qualifiers: Heart failure chronicity: acute Qualified Code(s): I50.21 - Acute systolic (congestive) heart failure Category: Medical Code(s): I50.20 - Unspecified systolic (congestive) heart failure (4) Cardiomyopathy Status: Acute Qualifiers: Cardiomyopathy type: unspecified Qualified Code(s): I42.9 - Cardiomyopathy, unspecified Category: Medical Code(s): I42.9 - Cardiomyopathy, unspecified (5) Atrial flutter with rapid ventricular response Status: Acute Category: Medical Code(s): I48.92 - Unspecified atrial flutter (6) CHF (congestive heart failure) Status: Acute Qualifiers: Heart failure type: unspecified Heart failure chronicity: unspecified Qualified Code(s): I50.9 - Heart failure, unspecified Category: Medical Code(s): I50.9 - Heart failure, unspecified (7) COPD (chronic obstructive pulmonary disease) with acute bronchitis Status: Acute Category: Medical Code(s): J44.0 - Chronic obstructive pulmonary disease with (acute) lower respiratory infection; J20.9 - Acute bronchitis, unspecified (8) Hypertension Status: Chronic Qualifiers: Hypertension type: primary hypertension Qualified Code(s): I10 - Essential (primary) hypertension Category: Medical Code(s): I10 - Essential (primary) hypertension (9) Hyperlipidemia Status: Chronic Qualifiers: Hyperlipidemia type: mixed hyperlipidemia Qualified Code(s): E78.2 - Mixed hyperlipidemia Category: Medical
--- NOTE | 2021-01-11 12:56 | PC.NURSE ---
Amiodoarone bag complete and has been disconnected from pt.
[2021-01-12] VITALS (15 sets, daily range): BP systolic 91–169; BP diastolic 48–92; PULSE 66–143; RESP 15–24; TEMP 36.6–37.2; O2SAT 91–95; BMI 24.3
--- NOTE | 2021-01-12 03:38 | PC.NURSE ---
notified MD Toscano of pt's increased HR into 130's, new onset atrial flutter from NSR, and fluctuations from flutter to sinus tach, no new orders at this time stated would continue oral amio and would round on pt in am
--- NOTE | 2021-01-12 06:15 | PC.NURSE ---
notified MD Toscano of pt's sustained HR in 130's up to low 140's and no oral amiodarone ordered, ordered 400mg amiodarone PO BID for weeks first dose now
--- NOTE | 2021-01-12 07:28 | ECG_ITS ---
APPROVED REPORT Exam: Resting ECG HR:144 bpm ECG Measurements Heart Rate 144 AXES W[place] 128 P 73 QRSd 108 QRS 76 QT 284 T 245 QTc 439 Conclusion Sinus tachycardia Inferior infarct, age undetermined ST & T wave abnormality, consider anterolateral ischemia Abnormal ECG Electronically signed by : Favian Willard MD 01/13/2021 21:08:44
--- NOTE | 2021-01-12 07:29 | PC.NURSE ---
EKG reveals sinus tach with rate 144. Pt also having multiple PVCs. Dr. Toscano to round this morning.
--- NOTE | 2021-01-12 08:27 | PC.NURSE ---
Dr. Toscano notified of sustained HR 140s.
--- NOTE | 2021-01-12 09:22 | HMH.ACPN2 ---
Internal Medicine - PN: Subj *Date: 01/12/21 *Time: 09:22 Interval history: pt improved this am but has increased hr and - pending card review Exam Vital signs and Labs for Last 24 Hours: Temp Pulse Resp BP Pulse Ox 98.5 F 129 H 18 117/67 91 L 01/12/21 08:00 01/12/21 08:00 01/12/21 08:00 01/12/21 08:00 01/12/21 08:00 I & O for Last 24 hours: Intake & Output 01/09/21 01/10/21 01/11/21 01/12/21 11:59 11:59 11:59 11:59 Intake Total 1360 / 1360 862 / 862 1546 / 1546 Output Total 1999 3035 / 3035 Balance -640 / -640 -2173 / -2173 1546 / 1546 Weight 178 lb 1.6 oz 168 lb 1.6 oz 174 lb - Constitutional no acute distress - *Routine HEENT Exam Head: Present: normocephalic Eye: Present: EOMI, PERRL ENT: Present: mucous membranes dry - *Routine Neck Exam Absent: JVD - *Routine Respiratory Exam Present: rhonchi - *Routine Cardiovascular Exam Present: tachycardia - *Routine Abdominal Exam Present: soft - *Routine Extremities Exam Absent: calf tenderness - *Routine Skin Exam Present: intact - *Routine Neurological Exam Present: alert, CN II-XII intact - Routine Psychiatric Exam Present: cooperative Assessment and Plan (1) Non-STEMI (non-ST elevated myocardial infarction) Status: Acute Category: Medical Code(s): I21.4 - Non-ST elevation (NSTEMI) myocardial infarction (2) Elevated troponin Status: Acute Category: Medical Code(s): R77.8 - Other specified abnormalities of plasma proteins (3) Systolic congestive heart failure Status: Acute Qualifiers: Heart failure chronicity: acute Qualified Code(s): I50.21 - Acute systolic (congestive) heart failure Category: Medical Code(s): I50.20 - Unspecified systolic (congestive) heart failure (4) Cardiomyopathy Status: Acute Qualifiers: Cardiomyopathy type: unspecified Qualified Code(s): I42.9 - Cardiomyopathy, unspecified Category: Medical Code(s): I42.9 - Cardiomyopathy, unspecified (5) Atrial flutter with rapid ventricular response Status: Acute Category: Medical Code(s): I48.92 - Unspecified atrial flutter (6) CHF (congestive heart failure) Status: Acute Qualifiers: Heart failure type: unspecified Heart failure chronicity: unspecified Qualified Code(s): I50.9 - Heart failure, unspecified Category: Medical Code(s): I50.9 - Heart failure, unspecified (7) COPD (chronic obstructive pulmonary disease) with acute bronchitis Status: Acute Category: Medical Code(s): J44.0 - Chronic obstructive pulmonary disease with (acute) lower respiratory infection; J20.9 - Acute bronchitis, unspecified (8) Hypertension Status: Chronic Qualifiers: Hypertension type: primary hypertension Qualified Code(s): I10 - Essential (primary) hypertension Category: Medical Code(s): I10 - Essential (primary) hypertension (9) Hyperlipidemia Status: Chronic Qualifiers: Hyperlipidemia type: mixed hyperlipidemia Qualified Code(s): E78.2 - Mixed hyperlipidemia Category: Medical Code(s): E78.5 - Hyperlipidemia, unspecified (10) Tobacco use Status: Acute Category: Social Hx Code(s): Z72.0 - Tobacco use (11) Elevated left ventricular end-diastolic pressure (LVEDP) Status: Acute Category: Medical Code(s): R94.30 - Abnormal result of cardiovascular function study, unspecified
[2021-01-12 10:26] LABS: Basophils # 0.1 K/mm3 (0-0.2); Basophils % 0.9 % (0.1-2.0); Eosinophils # 0.4 K/mm3 (0.0-0.4); Eosinophils % 3.4 % (0.1-12.0); Hematocrit 47.9 % (37.0-47.0); Hemoglobin 15.8 g/dL (12.2-16.2); Lymphocytes % 19.3 % (10-50); Mean Corpuscular Hemoglobin 34.8 pg (27.0-31.2); Mean Corpuscular Volume 105.6 fl (81-99); Mean Platelet Volume 7.9 fl (7.4-10.4); Monocytes # 0.7 K/mm3 (0.1-1.0); Monocytes % 6.4 % (1.7-9.3); Neutrophils # 7.2 K/mm3 (1.8-7.8); Platelet Count 342 K/mm3 (142-424); Red Blood Count 4.53 M/mm3 (4.20-5.40); White Blood Count 10.3 K/mm3 (4.8-10.8)
[2021-01-12 10:32] LABS: Chloride 103 mmol/L (98-107); Potassium 3.6 mmoL/L (3.5-5.1); Sodium 140 mmol/L (136-145)
[2021-01-12 10:35] LABS: Anion Gap 9.6 mEq/L (5-15); Blood Urea Nitrogen 17 mg/dl (7-17); Calcium 8.9 mg/dl (8.4-10.2); Carbon Dioxide 31 mmol/L (22.0-30.0); Creatinine Clearance Estimated 127 mL/min (50-200); Estimated Glomerular Filt Rate 103 ml/min (>60); GFR (African American) 124 ML/MIN (>60); Glucose 124 mg/dl (74-100)
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
[2021-01-13] VITALS (19 sets, daily range): BP systolic 108–128; BP diastolic 58–90; PULSE 90–448; RESP 17–21; TEMP 36.5; O2SAT 94–96; BMI 25.6
--- NOTE | 2021-01-13 09:50 | HMH.ACPN2 ---
Internal Medicine - PN: Subj *Date: 01/13/21 *Time: 08:29 Interval history: pt hr 130 tachy, pt states she feels better less soa Exam Vital signs and Labs for Last 24 Hours: Temp Pulse Resp BP Pulse Ox 97.7 F 126 H 20 125/74 94 L 01/13/21 07:52 01/13/21 08:00 01/13/21 06:00 01/13/21 06:00 01/13/21 08:00 Laboratory Results - last 24 hr 01/12/21 09:48: WBC 10.3, RBC 4.53, Hgb 15.8, Hct 47.9 H, MCV 105.6 H, MCH 34.8 H, MCHC 33.0, RDW 13.0, Plt Count 342, MPV 7.9, Neut % (Auto) 70.0, Lymph % (Auto) 19.3, [place] % (Auto) 6.4, Eos % (Auto) 3.4, Baso % (Auto) 0.9, Neut # (Auto) 7.2, Lymph # (Auto) 2.0, [place] # (Auto) 0.7, Eos # (Auto) 0.4, Baso # (Auto) 0.1 01/12/21 09:48: Sodium 140, Potassium 3.6, Chloride 103, Carbon Dioxide 31 H, Anion Gap 9.6, BUN 17, Creatinine 0.60, Estimated Creat Clear 127, Estimated GFR 103, Est GFR ( Amer) 124, Glucose 124 H, Calcium 8.9 I & O for Last 24 hours: Intake & Output 01/10/21 01/11/21 01/12/21 01/13/21 11:59 11:59 11:59 11:59 Intake Total 1360 / 1360 862 / 862 1546 / 1546 1200 / 1200 Output Total 1999 / 1999 3035 / 3035 Balance -640 / -640 -2173 / -2173 1546 / 1546 1200 / 1200 Weight 178 lb 1.6 oz 168 lb 1.6 oz 174 lb 183 lb - Constitutional no acute distress - *Routine HEENT Exam Head: Present: normocephalic Eye: Present: PERRL ENT: Present: mucous membranes moist - *Routine Neck Exam Present: supple. Absent: lymphadenopathy - *Routine Respiratory Exam Present: wheezes - *Routine Cardiovascular Exam Present: tachycardia - *Routine Abdominal Exam Present: soft, normoactive bowel sounds. Absent: tenderness - *Routine Extremities Exam Absent: cyanosis, clubbing, edema - *Routine Skin Exam Present: warm. Absent: rash - *Routine Neurological Exam Present: alert, oriented X3 Assessment and Plan (1) Non-STEMI (non-ST elevated myocardial infarction) Status: Acute Category: Medical Code(s): I21.4 - Non-ST elevation (NSTEMI) myocardial infarction (2) Elevated troponin Status: Acute Category: Medical Code(s): R77.8 - Other specified abnormalities of plasma proteins (3) Systolic congestive heart failure Status: Acute Qualifiers: Heart failure chronicity: acute Qualified Code(s): I50.21 - Acute systolic (congestive) heart failure Category: Medical Code(s): I50.20 - Unspecified systolic (congestive) heart failure (4) Cardiomyopathy Status: Acute Qualifiers: Cardiomyopathy type: unspecified Qualified Code(s): I42.9 - Cardiomyopathy, unspecified Category: Medical Code(s): I42.9 - Cardiomyopathy, unspecified (5) Atrial flutter with rapid ventricular response Status: Acute Category: Medical Code(s): I48.92 - Unspecified atrial flutter (6) CHF (congestive heart failure) Status: Acute Qualifiers: Heart failure type: unspecified Heart failure chronicity: unspecified Qualified Code(s): I50.9 - Heart failure, unspecified Category: Medical Code(s): I50.9 - Heart failure, unspecified (7) COPD (chronic obstructive pulmonary disease) with acute bronchitis Status: Acute Category: Medical Code(s): J44.0 - Chronic obstructive pulmonary disease with (acute) lower respiratory infection; J20.9 - Acute bronchitis, unspecified (8) Hypertension Status: Chronic Qualifiers: Hypertension type: primary hypertension Qualified Code(s): I10 - Essential (primary) hypertension Category: Medical Code(s): I10 - Essential (primary) hypertension (9) Hyperlipidemia Status: Chronic Qualifiers: Hyperlipidemia type: mixed hyperlipidemia Qualified Code(s): E78.2 - Mixed hyperlipidemia Category: Medical Code(s): E78.5 - Hyperlipidemia, unspecified (10) Tobacco use Status: Acute Category: Social Hx Code(s): Z72.0 - Tobacco use (11) Elevated left ventricular end-diastolic pressure (LVEDP) Status: Acute Category: Medical Code(s): R94.30 - Abnormal resul
--- NOTE | 2021-01-13 09:54 | P.PN_ITS ---
Subjective Date: 01/13/21 Time: 09:54 Principal diagnosis: A. fib with RVR, Non-ischemic CM Interval history: 60-year-old white female in bed with supplemental oxygen by nasal cannula in no acute distress. Some shortness of breath with conversation noted. Patient was started on IV diltiazem yesterday due to sustained heart rate in the 140s. Currently heart rate is around 110 bpm. Exam Vital signs and Labs for Last 24 Hours: Temp Pulse Resp BP Pulse Ox 97.7 F 126 H 20 125/74 94 L 01/13/21 07:52 01/13/21 08:00 01/13/21 06:00 01/13/21 06:00 01/13/21 08:00 Laboratory Results - last 24 hr 01/12/21 09:48: WBC 10.3, RBC 4.53, Hgb 15.8, Hct 47.9 H, MCV 105.6 H, MCH 34.8 H, MCHC 33.0, RDW 13.0, Plt Count 342, MPV 7.9, Neut % (Auto) 70.0, Lymph % (Auto) 19.3, [place] % (Auto) 6.4, Eos % (Auto) 3.4, Baso % (Auto) 0.9, Neut # (Auto) 7.2, Lymph # (Auto) 2.0, [place] # (Auto) 0.7, Eos # (Auto) 0.4, Baso # ( Auto) 0.1 01/12/21 09:48: Sodium 140, Potassium 3.6, Chloride 103, Carbon Dioxide 31 H, Anion Gap 9.6, BUN 17, Creatinine 0.60, Estimated Creat Clear 127, Estimated GFR 103, Est GFR ( Amer) 124, Glucose 124 H, Calcium 8.9 I & O for Last 24 hours: Intake & Output 01/10/21 01/11/21 01/12/21 01/13/21 11:59 11:59 11:59 11:59 Intake Total 1360 / 1360 862 / 862 1546 / 1546 1200 / 1200 Output Total 1999 3035 / 3035 Balance -640 / -640 -2173 / -2173 1546 / 1546 1200 / 1200 Weight 178 lb 1.6 oz 168 lb 1.6 oz 174 lb 183 lb - Constitutional no acute distress - *Routine Respiratory Exam Present: decreased breath sounds - *Routine Cardiovascular Exam Present: RRR Progress Note: A&P (1) Non-STEMI (non-ST elevated myocardial infarction) Status: Acute (2) Elevated troponin Status: Acute (3) Systolic congestive heart failure Status: Acute (4) Cardiomyopathy Status: Acute (5) Atrial flutter with rapid ventricular response Status: Acute (6) CHF (congestive heart failure) Status: Acute (7) COPD (chronic obstructive pulmonary disease) with acute bronchitis Status: Acute (8) Hypertension Status: Chronic (9) Hyperlipidemia Status: Chronic (10) Tobacco use Status: Acute (11) Elevated left ventricular end-diastolic pressure (LVEDP) Status: Acute Assessment and Plan for All Diagnoses:: 1. Atrial fibrillation with a rapid ventricular response, recurrent despite successful electrical cardioversion last week and institution of amiodarone therapy. Now will add IV digoxin for help with rate control. Would like to focus on the use of beta-iftikhar therapy for rate control along with the amiodarone. Continue Xarelto therapy. CAO2CQ2-JOIn score is 3 (, hypertension, CHF, female) with a annual thrombosis risk of 3.2%. 2. Nonischemic cardiomyopathy with ejection fraction of 25%, patient is on Entresto therapy along with carvedilol therapy. 3. History of asthma and COPD 4. Systolic congestive heart failure/HFrEF with evidence of diastolic dysfunction on cardiac cath (elevated left ventricular end-diastolic pressure). 5. Hypokalemia, on supplement 6. Hypothyroidism, on supplementation 7. Hyperlipidemia, LDL 77, will switch to atorvastatin.
[2021-01-13 10:36] LABS: Basophils # 0.1 K/mm3 (0-0.2); Basophils % 1.2 % (0.1-2.0); Eosinophils # 0.4 K/mm3 (0.0-0.4); Eosinophils % 4.5 % (0.1-12.0); Hematocrit 43.9 % (37.0-47.0); Hemoglobin 14.7 g/dL (12.2-16.2); Lymphocytes # 2.4 K/mm3 (0.7-4.5); Lymphocytes % 26.5 % (10-50); Mean Corpuscular HGB Conc 33.6 g/dL (31.8-35.4); Mean Corpuscular Hemoglobin 34.2 pg (27.0-31.2); Mean Corpuscular Volume 101.9 fl (81-99); Monocytes # 0.8 K/mm3 (0.1-1.0); Neutrophils # 5.2 K/mm3 (1.8-7.8); Neutrophils % 58.8 % (37.0-80.0); Platelet Count 292 K/mm3 (142-424); Red Blood Count 4.31 M/mm3 (4.20-5.40); Red Cell Distribution Width 13.5 % (11.5-17.5); White Blood Count 8.8 K/mm3 (4.8-10.8)
[2021-01-13 11:02] LABS: Chloride 106 mmol/L (98-107); Potassium 3.7 mmoL/L (3.5-5.1); Sodium 139 mmol/L (136-145)
[2021-01-13 11:05] LABS: Anion Gap 7.7 mEq/L (5-15); Blood Urea Nitrogen 17 mg/dl (7-17); Calcium 8.5 mg/dl (8.4-10.2); Carbon Dioxide 29 mmol/L (22.0-30.0); Creatinine Clearance Estimated 161 mL/min (50-200); Estimated Glomerular Filt Rate 127 ml/min (>60); GFR (African American) 153 ML/MIN (>60); Glucose 123 mg/dl (74-100)
[2021-01-13 11:09] LABS: Magnesium 1.6 mg/dl (1.6-2.3)
--- NOTE | 2021-01-13 11:56 | XR_ITS ---
PROCEDURE: XR CHEST PORTABLE CLINICAL HISTORY: increased soa, productive cough COMPARISON: CR CXR2 XR chest AP from 05/16/2017 CR XR CHEST 2V from 12/09/[address] ANGIO CHEST PE PROTOCOL from 01/09/2021 CR XR CHEST PORTABLE from 01/09/2021 FINDINGS: The cardiomediastinal silhouette and pulmonary vascularity are within normal limits. COPD with emphysematous changes. No lobar consolidation or collapse. Posttraumatic changes of the left clavicle distally at the AC joint No acute bony abnormalities. IMPRESSION: COPD with emphysematous changes. No change with no acute finding. Dictated by: Stephen Odonnell MD 01/13/2021 13:46 Stephen Odonnell MD in [facility] 01/13/2021 13:46
--- NOTE | 2021-01-13 18:27 | PC.NURSE ---
No acute changes noted this shift, patient has remained in atrial flutter for most of the day with rate of 120-130, MD aware, patient to be NPO p MN for possible cardioversion tomorrow, remains on 2LNC, showered today and tolerated well, has been pleasant and cooperative, treated for pain x2 this shift per emar, vss, will continue to monitor for changes.
[2021-01-14] VITALS (11 sets, daily range): BP systolic 102–114; BP diastolic 69–78; PULSE 71–117; RESP 16–19; TEMP 36.4–36.7; O2SAT 84–96
--- NOTE | 2021-01-14 | ECG_ITS ---
APPROVED REPORT Exam: Resting ECG HR:73 bpm ECG Measurements Heart Rate 73 AXES SD 156 P 68 QRSd 112 QRS 75 QT 394 T 96 QTc 434 Conclusion Normal sinus rhythm T wave abnormality, consider anterolateral ischemia Abnormal ECG Electronically signed by : Favian Willard MD 01/14/2021 21:49:33
--- NOTE | 2021-01-14 04:09 | PC.NURSE ---
Pt currently resting in bed at this time. Has c/o discomfort to shoulder and back. Medicated per apr. Pt on 2L O2 NC. Lungs noted to have wheezing. Pt has nonproductive cough. VS are currently stable. HR has improved overnight. Currently upper 90s to low 100s. She is currently NPO for possible procedure in AM. No other concerns at this time. Will continue to monitor.
[2021-01-14 06:44] LABS: Basophils # 0.1 K/mm3 (0-0.2); Basophils % 1.4 % (0.1-2.0); Eosinophils # 0.5 K/mm3 (0.0-0.4); Hematocrit 43.7 % (37.0-47.0); Hemoglobin 14.4 g/dL (12.2-16.2); Lymphocytes # 2.3 K/mm3 (0.7-4.5); Mean Corpuscular HGB Conc 32.9 g/dL (31.8-35.4); Mean Corpuscular Hemoglobin 33.8 pg (27.0-31.2); Mean Corpuscular Volume 102.7 fl (81-99); Monocytes # 0.8 K/mm3 (0.1-1.0); Monocytes % 8.9 % (1.7-9.3); Neutrophils # 5.6 K/mm3 (1.8-7.8); Neutrophils % 59.7 % (37.0-80.0); Platelet Count 375 K/mm3 (142-424); Red Blood Count 4.25 M/mm3 (4.20-5.40); Red Cell Distribution Width 13.4 % (11.5-17.5); White Blood Count 9.4 K/mm3 (4.8-10.8)
[2021-01-14 07:06] LABS: Blood Urea Nitrogen 21 mg/dl (7-17); Calcium 8.8 mg/dl (8.4-10.2); Carbon Dioxide 34 mmol/L (22.0-30.0); Chloride 101 mmol/L (98-107); Creatinine Clearance Estimated 134 mL/min (50-200); Estimated Glomerular Filt Rate 103 ml/min (>60); GFR (African American) 124 ML/MIN (>60); Glucose 101 mg/dl (74-100); Sodium 137 mmol/L (136-145)
--- NOTE | 2021-01-14 07:53 | HMH.PNCARD ---
Subjective Date: 01/14/21 Time: 07:53 Principal diagnosis: A. fib with RVR, Non-ischemic CM Interval history: 60-year-old white female in bed in no acute distress. Feels a little bit better with heart rate better controlled. Denies any chest pain, pressure or tightness. Telemetry continues to show atrial flutter with controlled ventricular response. Exam Vital signs and Labs for Last 24 Hours: Temp Pulse Resp BP Pulse Ox 98.1 F 89 19 114/72 94 L 01/14/21 04:26 01/14/21 06:00 01/14/21 06:00 01/14/21 06:00 01/14/21 06:00 Laboratory Results - last 24 hr 01/13/21 10:04: WBC 8.8, RBC 4.31, Hgb 14.7, Hct 43.9, MCV 101.9 H, MCH 34.2 H, MCHC 33.6, RDW 13.5, Plt Count 292, MPV 9.0, Neut % (Auto) 58.8, Lymph % (Auto) 26.5, [place] % (Auto) 9.0, Eos % (Auto) 4.5, Baso % (Auto) 1.2, Neut # (Auto) 5.2, Lymph # (Auto) 2.4, [place] # (Auto) 0.8, Eos # (Auto) 0.4, Baso # (Auto) 0.1 01/13/21 10:04: Sodium 139, Potassium 3.7, Chloride 106, Carbon Dioxide 29, Anion Gap 7.7, BUN 17, Creatinine 0.50 L, Estimated Creat Clear 161, Estimated GFR 127, Est GFR ( Amer) 153 D, Glucose 123 H, Calcium 8.5 01/13/21 10:04: Magnesium 1.6 01/14/21 05:10: WBC 9.4, RBC 4.25, Hgb 14.4, Hct 43.7, MCV 102.7 H, MCH 33.8 H, MCHC 32.9, RDW 13.4, Plt Count 375 D, MPV 9.0, Neut % (Auto) 59.7, Lymph % (Auto) 25.0, [place] % (Auto) 8.9, Eos % (Auto) 5.0, Baso % (Auto) 1.4, Neut # (Auto) 5.6, Lymph # (Auto) 2.3, [place] # (Auto) 0.8, Eos # (Auto) 0.5 H, Baso # (Auto) 0.1 01/14/21 05:10: Sodium 137, Potassium 4.0, Chloride 101, Carbon Dioxide 34 H, Anion Gap 6.0, BUN 21 H, Creatinine 0.60, Estimated Creat Clear 134, Estimated GFR 103, Est GFR ( Amer) 124, Glucose 101 H, Calcium 8.8 I & O for Last 24 hours: Intake & Output 01/11/21 01/12/21 01/13/21 01/14/21 11:59 11:59 11:59 11:59 Intake Total 862 / 862 1546 / 1546 1200 / 1200 840 / 840 Output Total 3035 / 3035 750 / 750 Balance -2173 / -2173 1546 / 1546 1200 / 1200 90 / 90 Weight 168 lb 1.6 oz 174 lb 182 lb 15.739 oz - Constitutional no acute distress - *Routine HEENT Exam Head: Present: normocephalic Eye: Present: EOMI, PERRL ENT: Present: mucous membranes moist - *Routine Neck Exam Present: supple. Absent: lymphadenopathy - *Routine Respiratory Exam Present: wheezes - *Routine Cardiovascular Exam Present: irregular rhythm - *Routine Abdominal Exam Present: soft, normoactive bowel sounds. Absent: tenderness - *Routine Extremities Exam Absent: cyanosis, clubbing, edema - *Routine Skin Exam Present: warm. Absent: rash - *Routine Neurological Exam Present: alert, oriented X3 Progress Note: A&P (1) Non-STEMI (non-ST elevated myocardial infarction) Status: Acute (2) Elevated troponin Status: Acute (3) Systolic congestive heart failure Status: Acute (4) Cardiomyopathy Status: Acute (5) Atrial flutter with rapid ventricular response Status: Acute (6) CHF (congestive heart failure) Status: Acute (7) COPD (chronic obstructive pulmonary disease) with acute bronchitis Status: Acute (8) Hypertension Status: Chronic (9) Hyperlipidemia Status: Chronic (10) Tobacco use Status: Acute (11) Elevated left ventricular end-diastolic pressure (LVEDP) Status: Acute Assessment and Plan for All Diagnoses:: 1. Atrial fibrillation/flutter with a controlled ventricular response, recurrent despite successful electrical cardioversion last week and institution of amiodarone therapy along with carvedilol and addition of digoxin yesterday. Continue Xarelto therapy. [id number] score is 3 (, hypertension, CHF, female) with a annual thrombosis risk of 3.2%. Will plan for cardioversion today. 2. Nonischemic cardiomyopathy with ejection fraction of 25%, patient is on Entresto therapy along with carvedilol therapy. 3. History of asthma and COPD 4. Systolic congestive heart failure/HFrEF with evidence of diastolic dysfunction on cardiac cath
--- NOTE | 2021-01-14 08:30 | HMH.PNCARD ---
Subjective Date: 01/14/21 Time: 08:30 Principal diagnosis: A. fib with RVR, Non-ischemic CM Interval history: 60-year-old white female in bed in no acute distress. Still with some mild shortness of breath but improving. Telemetry shows atrial flutter with controlled ventricular response. Exam Vital signs and Labs for Last 24 Hours: Temp Pulse Resp BP Pulse Ox 98.1 F 89 19 114/72 94 L 01/14/21 04:26 01/14/21 06:00 01/14/21 06:00 01/14/21 06:00 01/14/21 06:00 Laboratory Results - last 24 hr 01/13/21 10:04: WBC 8.8, RBC 4.31, Hgb 14.7, Hct 43.9, MCV 101.9 H, MCH 34.2 H, MCHC 33.6, RDW 13.5, Plt Count 292, MPV 9.0, Neut % (Auto) 58.8, Lymph % (Auto) 26.5, [place] % (Auto) 9.0, Eos % (Auto) 4.5, Baso % (Auto) 1.2, Neut # (Auto) 5.2, Lymph # (Auto) 2.4, [place] # (Auto) 0.8, Eos # (Auto) 0.4, Baso # (Auto) 0.1 01/13/21 10:04: Sodium 139, Potassium 3.7, Chloride 106, Carbon Dioxide 29, Anion Gap 7.7, BUN 17, Creatinine 0.50 L, Estimated Creat Clear 161, Estimated GFR 127, Est GFR ( Amer) 153 D, Glucose 123 H, Calcium 8.5 01/13/21 10:04: Magnesium 1.6 01/14/21 05:10: WBC 9.4, RBC 4.25, Hgb 14.4, Hct 43.7, MCV 102.7 H, MCH 33.8 H, MCHC 32.9, RDW 13.4, Plt Count 375 D, MPV 9.0, Neut % (Auto) 59.7, Lymph % (Auto) 25.0, [place] % (Auto) 8.9, Eos % (Auto) 5.0, Baso % (Auto) 1.4, Neut # (Auto) 5.6, Lymph # (Auto) 2.3, [place] # (Auto) 0.8, Eos # (Auto) 0.5 H, Baso # (Auto) 0.1 01/14/21 05:10: Sodium 137, Potassium 4.0, Chloride 101, Carbon Dioxide 34 H, Anion Gap 6.0, BUN 21 H, Creatinine 0.60, Estimated Creat Clear 134, Estimated GFR 103, Est GFR ( Amer) 124, Glucose 101 H, Calcium 8.8 I & O for Last 24 hours: Intake & Output 01/11/21 01/12/21 01/13/21 01/14/21 11:59 11:59 11:59 11:59 Intake Total 862 / 862 1546 / 1546 1200 / 1200 840 / 840 Output Total 3035 / 3035 750 / 750 Balance -2173 / -2173 1546 / 1546 1200 / 1200 90 / 90 Weight 168 lb 1.6 oz 174 lb 182 lb 15.739 oz Progress Note: A&P (1) Non-STEMI (non-ST elevated myocardial infarction) Status: Acute (2) Elevated troponin Status: Acute (3) Systolic congestive heart failure Status: Acute (4) Cardiomyopathy Status: Acute (5) Atrial flutter with rapid ventricular response Status: Acute (6) CHF (congestive heart failure) Status: Acute (7) COPD (chronic obstructive pulmonary disease) with acute bronchitis Status: Acute (8) Hypertension Status: Chronic (9) Hyperlipidemia Status: Chronic (10) Tobacco use Status: Acute (11) Elevated left ventricular end-diastolic pressure (LVEDP) Status: Acute
--- NOTE | 2021-01-14 08:32 | P.PCN_ITS ---
[facility] Cardioversion Date: 01/14/21 Provider:: ROBBY Seaman Procedure Performed:: Synchronized electrical cardioversion Diagnosis:: Atrial flutter with variable rate response Procedure Summary:: Informed consent was obtained and anesthesia provided sedation. After patient was completely sedated a single 200 J electrical shock was administered with successful conversion from atrial flutter to normal sinus rhythm confirmed by twelve-lead EKG. Patient tolerated the procedure without complications. Complications:: None Conculsion:: Successful electrical cardioversion from atrial flutter to normal sinus rhythm.
--- NOTE | 2021-01-14 08:42 | PC.NURSE ---
0815- Informed consent obtained from patient for cardioversion, patient attached to zoll monitor 0818- Time out completed at bedside 0820- Sedation given per R Feeback 0822- Patient sedated, synchronized cardioversion with one shock delivered at 200J, patient noted to be in NSR 0823- EKG completed at beside confirming NSR Patient tolerated procedure well with no complications, current vs BP 95/61, HR 67, O2 97% on 2LNC
--- NOTE | 2021-01-14 09:47 | HMH.DCSUM ---
General - General Admission date:: 01/09/21 Discharge date: 01/14/21 HPI HPI: 60-year-old female presented to the emergency department with some palpitations and shortness of breath via EMS. The patient with history of COPD. Patient reports she had shoulder repair done earlier this month. Patient states that for the last 2 days she has been very short of breath. Patient states she feels she can not catch her breath. Patient states it felt like her heart was pounding on her chest. Patient was found to be in Aflutter with avr and admitted on Cardizem drip and cardiology consult with work up. Hospital Course Hospital Course: 60-year-old female presented to the emergency department with some palpitations and shortness of breath via EMS. The patient with history of COPD. Patient reports she had shoulder repair done earlier this month. Patient states that for the last 2 days she has been very short of breath. Patient states she feels she can not catch her breath. Patient states it felt like her heart was pounding on her chest. Patient was found to be in Aflutter with avr and admitted on Cardizem drip and cardiology consult with work up. 01/09/21 CXR: IMPRESSION: Moderate interstitial pneumonia. Electronically signed by Chepe Douglas MD 01/09/21 Chest CTA: IMPRESSION: 1. No evidence of pulmonary embolism or aortic dissection. 2. Moderate-severe emphysematous changes involving primarily the upper lung ignacio bilaterally. 3. Mild cardiomegaly with basilar interstitial prominence and interlobular septal thickening suspicious for possible superimposed element of CHF and interstitial edema. No gross alveolar edema or consolidative pulmonary infiltrates. No pleural effusion. Mild bilateral bronchial wall thickening may relate to bronchial edema or mild bronchitis. 4. Borderline enlarged subcarinal and bilateral hilar nodes, nonspecific. 5. Evidence of recent cholecystectomy without gross complication. 6. Additional nonemergent findings detailed above. Electronically signed by Arpit Coleman MD 01/10/21 ECHO: Conclusion 1. Biatrial enlargement, mildly dilated left ventricle, severe reduced left ventricular systolic function, visually estimated ejection fraction 25%, with multiple segmental wall motion abnormality described above, diastolic parameters are inconclusive. 2. Mild mitral and trace tricuspid regurgitation. 3. No significant pericardial effusion noted. 4. Inferior vena cava is mildly dilated without significant inspiratory collapse. Electronically signed by : Don Mtz MD 01/10/21 Cardiac Cath: ANGIOGRAPHIC RESULTS The left main artery Normal The left anterior descending artery Normal The circumflex artery Normal The right coronary artery Large dominant normal The MINER ventriculogram reveals Severely dilated ejection fraction 25% The left ventricular end-diastolic pressure 15 mmHg IMPRESSION Normal coronary arteries Cardiomyopathy with mildly elevated LVEDP Successful cardioversion to regular rhythm PLAN 1. Patient requires full dose Lovenox as well as starting Xarelto 20 mg daily for atrial fibrillation 2. Continue amiodarone drip and then loaded orally 3. Standard therapy for cardiomyopathy including Entresto and carvedilol 4. Patient has had large diuresis within the last couple of hours and is in more stable condition. Judicious use of diuretics 5. Consider LifeVest prior to discharge Electronically signed by : Brad Toscano MD Cardiology has seen and recommends: 1. Atrial fibrillation/flutter with a controlled ventricular response, recurrent despite successful electrical cardioversion last week and institution of amiodarone therapy along with carvedilol and addition of digoxin yesterday. Continue Xarelto therapy. [id number] score is 3 (, hypertension, CHF, female) with a annual thrombosis risk of 3.2%. Will plan for cardioversion today. 2. Nonischemic
--- NOTE | 2021-01-14 14:36 | P.PN_ITS ---
[facility] Anesthesia Checklist - Patient Identification Patient Identification: Arm Band - Structural Data Admitted From: Inpatient Planned Operative Procedure/s: cardioversion Consent for Planned Operative Procedure(s) Verified: Yes Verified Documents: Surgical Consent, History and Physical - NPO Status Verified Time NPO: 00:00 - Additional verifications Anesthesia Reactions: No - Airway Assessment C-Spine Mobility Assessed: Yes TMJ Mobility Assessed: Yes Dentition: Good Dentition - Anesthesia Plan Anesthesia Risk discussed: Yes Anesthesia Plan: Verified ASA Class: III Anesthesia Type: MAC [facility] History I have reviewed the patient's past medical history: Yes Medical History: Reports:: Anxiety, Congestive Heart Failure, Depression, Hyperlipidemia, Hypertension Denies:: Cancer, Diabetes Mellitus Type 1, Diabetes Mellitus Type 2, Internal Pacemaker, MRSA *Have you ever received a pneumonia vaccine?: No *Have you received a flu vaccine this season?: No Other Medical History: Reports: Arthritis, Liver Disease (Hepatitis C), Thyroid Disease Anesthesia experience/problems:: nac Laterality Cases: Left: Other, Right: Carpal Tunnel Release Other Surgeries: Yes: Cholecystectomy, Hysterectomy-Total, Thyroidectomy, Tubal Ligation, Other (jaw, hysterectomy). No: Pacemaker Amputation: No Fractures: Yes - *Social History Last grade of school completed: High school graduate Smoking Status: Current every day smoker Tobacco Type: cigarettes # Packs/Day (cigarettes): 1 Alcohol Intake: never Alcohol Intake Frequency:: holidays/special occasions only Substance Use Type: denies use *Occupational Status:: disabled Housing: house Household Members: none *Travel in the last 8 weeks: None - Psychiatric History Pschychiatric History:: Reports:: Anxiety, Depression Family Hx:: Non-contributory
== END 2021-01-14 13:40 | disposition home or self-care (01) | DRG 280 ==
LOC: ER 19:38 → 2ND 20:03
PROVIDERS: Emergency Medicine; Internal Medicine; Nurse Practitioner Family; Physician Assistant; Admitting Provider Family Medicine; Emergency Provider Emergency Medicine; PCP Nurse Practitioner; Visit Provider Family Medicine
PROC: 4A023N7 Measurement of Cardiac Sampling and Pressure, Left Heart, Percutaneous Approach (ICD-10-PCS; principal; 2021-01-10 12:00)
DX: I48.92 Unspecified atrial flutter (principal); I21.4 Non-ST elevation (NSTEMI) myocardial infarction; I50.21 Acute systolic (congestive) heart failure; R57.0 Cardiogenic shock; J44.0 Chronic obstructive pulmonary disease with (acute) lower respiratory infection; I48.91 Unspecified atrial fibrillation; Z79.899 Other long term (current) drug therapy; I11.0 Hypertensive heart disease with heart failure; Z88.8 Allergy status to other drugs, medicaments and biological substances; F17.210 Nicotine dependence, cigarettes, uncomplicated; I42.9 Cardiomyopathy, unspecified; Z20.822 Contact with and (suspected) exposure to COVID-19; F41.9 Anxiety disorder, unspecified; F32.A Depression, unspecified; E87.6 Hypokalemia; E03.9 Hypothyroidism, unspecified
CPT/HCPCS: 36415; 71045; 71275; 80048; 80053; 80061; 80076; 81001; 82803; 83735; 83880; 84443; 84484; 85025; 85610; 85730; 92960; 93005; 93306; 93458; 94640; 94761; 96365; 96366; 96375; 99284; C1725; C1769; C9803; J0282; J1644; J7060; Q9967; U0003; U0005

== ENCOUNTER 2021-03-03 15:00 | Outpatient (RCR) | payer MEDICAID, SELFPAY | END 2021-04-09 10:07 | disposition home or self-care (01) | LOC: PT.CARL 15:00 | PROVIDERS: PCP Nurse Practitioner; Visit Provider Orthopaedic Surgery Adult Reconstructive Orthopaedic Surgery | DX: M75.101 Unspecified rotator cuff tear or rupture of right shoulder, not specified as traumatic (principal) | CPT/HCPCS: 97010; 97014; 97033; 97110; 97140; 97163; 97164; G0283 ==

== ENCOUNTER 2021-03-27 13:46 | Inpatient (IN) | payer MEDICAID, SELFPAY ==
--- NOTE | 2021-03-27 13:54 | HMH.EDGENADL ---
ED Disposition Clinical Impression: Pneumonia, community acquired Qualifiers: Laterality: unspecified laterality Qualified Code(s): J18.9 - Pneumonia, unspecified organism Cardiomyopathy Qualifiers: Cardiomyopathy type: unspecified Qualified Code(s): I42.9 - Cardiomyopathy, unspecified Disposition: Admitted as Observation Condition on Discharge: Fair Referrals: Provider,Referral, [Referring] - - Critical Care Critical Care Time: No Attestation: On , the high probability of a clinically significant, sudden or life threatening deterioration of the following system(s) required my full and direct attention, intervention and personal management. The time I documented below is in addition to time spent performing reported procedures but includes the following listed in this critical care notation. Medical Decision Making - Alberto Inquiry Pt receiving controlled substance: No Vital Signs: 03/27/21 14:02 Temperature 98.1 F Temperature Source Oral Pulse Rate [Left Radial] 94 H Respiratory Rate 23 Blood Pressure [Right Arm] 132/90 Blood Pressure Mean [Right Arm] 104 02 Sat by Pulse Oximetry 93 L Oxygen Delivery Method Nasal Cannula Oxygen Flow Rate (LPM) 2.5 - Lab Data Lab Results 03/27/21 14:00: WBC 13.0 H, RBC 4.44, Hgb 15.2, Hct 45.2, MCV 101.9 H, MCH 34.3 H, MCHC 33.7, RDW 13.3, Plt Count 344, MPV 8.1, Neut % (Auto) 77.4, Lymph % (Auto) 16.2, [place] % (Auto) 4.2, Eos % (Auto) 1.6, Baso % (Auto) 0.6, Neut # (Auto) 10.1 H, Lymph # (Auto) 2.1, [place] # (Auto) 0.6, Eos # (Auto) 0.2, Baso # (Auto) 0.1 03/27/21 14:00: Sodium 137, Potassium 4.5, Chloride 101, Carbon Dioxide 29, Anion Gap 11.5, BUN 12, Creatinine 0.50 L, Estimated Creat Clear 149, Estimated GFR 127, Est GFR ( Amer) 153, Glucose 126 H, Calcium 8.3 L, Troponin I < 0.01 03/27/21 14:00: NT-Pro-B Natriuret Pep 62.3 03/27/21 14:00: Total Bilirubin 0.5, Direct Bilirubin 0.4, Conjugated Bilirubin 0.0, Indirect Bilirubin 0.1, Unconjugated Bilirubin 0.2, AST 72 H, ALT 83 H, Alkaline Phosphatase 165 H, Total Protein 7.7, Albumin 4.5 03/27/21 14:40: SARS-CoV-2 (PCR) Not detected, Influenza A Untype (PCR) Not detected, Influenza Type B (PCR) Not detected 03/27/21 14:40: Lactate 1.1 Result diagrams: 03/27/21 14:00 03/27/21 14:00 Orders (Tests/Meds): ED MEDICATIONS Generic Name Dose Route Start Last Admin Trade Name Freq PRN Reason Stop Dose Admin Levofloxacin/Dextrose 750 mg in 150 mls @ 100 mls/hr 03/27/21 16:00 03/27/21 15:57 Levofloxacin 750mg/150ml Premix IV 04/10/21 15:59 100 mls/hr Q24H AINSLEY Administration Sodium Chloride 10 ml 03/27/21 14:07 Sodium Chloride 0.9% 10ml Flush Syringe IV 04/26/21 14:06 NEEDED PRN Maintain IV Site ORDERS Category Date Time Status Troponin I Q3H Lab 03/27/21 17:20 Received Troponin I Q3H Lab 03/27/21 20:15 Ordered Blood Culture Stat Micro 03/27/21 14:45 Received - Radiology Data #1 Image(s): Chest Image Reviewed: Yes I have reviewed radiologist's interpretation Procedure(s): XR chest 2V Accession Number(s): [id number] cc: Vic Munoz MD; Solange Mills APRN~ FINAL REPORT CLINICAL HISTORY: shortness of breath COMPARISON: January 13, 2021 FINDINGS: Two views of the chest were obtained. The heart size and pulmonary vascularity are within normal limits. The mediastinum is normal. The lungs are hyperinflated consistent with COPD. There are worsening bibasilar opacities consistent with worsening pneumonia. There is no pneumothorax. The bony thorax is intact. IMPRESSION: Worsening pneumonia. Reviewed, Interpreted and Dictated by Vic Munoz III, MD Transcribed by Donis Soliz Authenticated by Vic Munoz III, MD on 03/27/2021 02:50:08 PM [facility] - Physician Consults Physician Consulted: Christal Time: 17:30 Reason -: Admission Comment/Response: Agrees to admit the patient to the hospital. We discussed the pa
[2021-03-27 14:02] VITALS: BP 132/90; PULSE 94; RESP 23; TEMP 36.7; O2SAT 93; BMI 27.4
--- NOTE | 2021-03-27 14:06 | XR_ITS ---
FINAL REPORT CLINICAL HISTORY: shortness of breath COMPARISON: January 13, 2021 FINDINGS: Two views of the chest were obtained. The heart size and pulmonary vascularity are within normal limits. The mediastinum is normal. The lungs are hyperinflated consistent with COPD. There are worsening bibasilar opacities consistent with worsening pneumonia. There is no pneumothorax. The bony thorax is intact. IMPRESSION: Worsening pneumonia. Reviewed, Interpreted and Dictated by Vic Munoz III, MD Transcribed by Donis Soliz Authenticated by Vic Munoz III, MD on 03/27/2021 02:50:08 PM [facility]
[2021-03-27 14:15] LABS: Basophils # 0.1 K/mm3 (0-0.2); Basophils % 0.6 % (0.1-2.0); Eosinophils # 0.2 K/mm3 (0.0-0.4); Eosinophils % 1.6 % (0.1-12.0); Hematocrit 45.2 % (37.0-47.0); Hemoglobin 15.2 g/dL (12.2-16.2); Lymphocytes # 2.1 K/mm3 (0.7-4.5); Lymphocytes % 16.2 % (10-50); Mean Corpuscular HGB Conc 33.7 g/dL (31.8-35.4); Mean Corpuscular Hemoglobin 34.3 pg (27.0-31.2); Mean Corpuscular Volume 101.9 fl (81-99); Mean Platelet Volume 8.1 fl (7.4-10.4); Monocytes # 0.6 K/mm3 (0.1-1.0); Monocytes % 4.2 % (1.7-9.3); Neutrophils # 10.1 K/mm3 (1.8-7.8); Neutrophils % 77.4 % (37.0-80.0); Platelet Count 344 K/mm3 (142-424); Red Blood Count 4.44 M/mm3 (4.20-5.40); Red Cell Distribution Width 13.3 % (11.5-17.5)
[2021-03-27 14:16] LABS: Chloride 101 mmol/L (98-107)
[2021-03-27 14:17] LABS: Potassium 4.5 mmoL/L (3.5-5.1); Sodium 137 mmol/L (136-145)
[2021-03-27 14:20] LABS: Anion Gap 11.5 mEq/L (5-15); Blood Urea Nitrogen 12 mg/dl (7-17); Calcium 8.3 mg/dl (8.4-10.2); Carbon Dioxide 29 mmol/L (22.0-30.0); Creatinine Clearance Estimated 149 mL/min (50-200); Estimated Glomerular Filt Rate 127 ml/min (>60); GFR (African American) 153 ML/MIN (>60); Glucose 126 mg/dl (74-100)
--- NOTE | 2021-03-27 14:25 | CA_ITS ---
APPROVED REPORT EXAM: Limited 2D Echocardiogram Furniture Repair Technician: Eleanor Unger RVT Ht: 5 ft 11 in Wt: 170lbs BSA: 1.97 BP: 132/90 mmHg Indications: EF CHECK,CM EF OF 25% ON 01/09/21,LIFEVEST IN PLACE,SOA,HOME O2,SMOKER,COPD,HTN,EDEMA,CHF,HLD TDS-OFF AXIS IMAGES BEST EXAM POSSIBLE 2D Dimensions IVSd 1.36 cm F: 0.6-1.0 LVEF (Visual) 44.00 % PWd 1.05 cm F: 0.6 - 1.0 LVDd 4.14 cm F: 3.9 - 5.3 LVDs 3.25 cm F: 2.2 - 3.5 M-Mode Dimensions RVDd 3.69 cm (0.9-2.6) LA Diam 3.48 cm (1.9-4.0) LVDd 5.35 cm (3.5-5.7) Ao Diam 3.05 cm (2.0-3.7) LVDs 3.69 cm (3.5-5.7) IVSd 0.59 cm (0.6-1.1) PWd 1.06 cm (0.6-1.1) EF (Teich) 41.00% FS 31.00% EDV (Teich) 138.30 mL ESV (Teich) 57.80 mL Left Ventricle Limited echocardiogram was performed to evaluate left ventricular systolic function, left ventricle is normal size, estimated ejection fraction is 55% with no obvious regional wall motion abnormality, there is flattening of the intraventricular septum intermittently. Right Ventricle Right atrium and right ventricle moderately enlarged, contractility of the right ventricle is mildly reduced. Conclusion 1. Normal left ventricular size with preserved left ventricular systolic function, visually estimated ejection fraction 55% with no regional wall motion abnormality, there is intermittent flattening of the interventricular septum. 2. Right atrium right ventricle moderately enlarged, contractility of the right ventricle is mildly reduced. 3. No significant pericardial effusion noted. Electronically signed by : Don Mtz MD 03/28/2021 09:39:50
[2021-03-27 14:29] LABS: NT Pro Brain Natriuretic Pep. 62.3 pg/mL (0-125)
[2021-03-27 14:35] LABS: Troponin I < 0.01 ng/ml (0.00-0.034)
[2021-03-27 14:53] LABS: Coronavirus 19, PCR Not Detected (NotDetected); Influenza A, PCR Not Detected (NotDetected); Influenza B, PCR Not Detected (NotDetected)
[2021-03-27 14:56] LABS: Bilirubin,Unconjugated 0.2 mg/dL (0.0-1.1)
[2021-03-27 14:57] LABS: Alanine Aminotransferase 83 U/L (12-78); Albumin Level 4.5 g/dl (3.5-5.0); Alkaline Phosphatase 165 U/L (38-126); Aspartate Amino Transferase 72 U/L (14-36); Bilirubin,Direct 0.4 mg/dl (0.0-0.4); Bilirubin,Indirect 0.1 mg/dL (0.0-0.9); Bilirubin,Total 0.5 mg/dl (0.2-1.3); Total Protein,Serum 7.7 g/dl (6.3-8.2)
[2021-03-27 15:11] LABS: Lactic Acid 1.1 mmol/L (0.7-2.1)
[2021-03-27 17:57] LABS: Troponin I < 0.01 ng/ml (0.00-0.034)
--- NOTE | 2021-03-27 18:00 | PC.NURSE ---
report called to mike olvera
[2021-03-27 18:07] VITALS: BP 131/88; PULSE 90; RESP 21; TEMP 36.7; O2SAT 94
--- NOTE | 2021-03-27 18:34 | PC.NURSE ---
Pt just arrived to the floor
[2021-03-27 19:00] VITALS: BMI 23.8
[2021-03-27 20:00] VITALS: BP 106/70; PULSE 62; RESP 18; TEMP 36.9; O2SAT 95; O2SAT 96
[2021-03-28] VITALS (11 sets, daily range): BP systolic 117–136; BP diastolic 69–85; PULSE 60–82; RESP 18–24; TEMP 36.5–37.3; O2SAT 89–97; BMI 24.2
--- NOTE | 2021-03-28 07:20 | HMH.PHAVTE ---
[facility] Pharm[facility] VTE Monitoring - Patient Demographics Admission date: 03/28/21 Report Date: 03/28/21 Time: 07:20 Allergies/Adverse Reactions: Patient Allergies penicillin G [PENICILLIN G] Allergy (Mild, Verified 03/04/21 13:53) I-RASH/NV acetaminophen [ACETAMINOPHEN] Adverse Reaction (Mild, Verified 03/04/21 13:53) NOT ALLERGIC. NEED TO WATCH DUE TO LIVER Height: 1.8 m Weight: 78.471 kg Patient Problems: Current Active Problems Pneumonia, community acquired (Acute) Cardiomyopathy (Chronic) - VTE Risk Labs: VTE Related Lab Results Hgb 15.2 g/dL (12.2-16.2) 03/27/21 14:00 Hct 45.2 % (37.0-47.0) 03/27/21 14:00 Plt Count 344 K/mm3 (142-424) 03/27/21 14:00 BUN 12 mg/dl (7-17) 03/27/21 14:00 Creatinine 0.50 mg/dl (0.52-1.04) L 03/27/21 14:00 Estimated Creat Clear 149 mL/min (50-200) 03/27/21 14:00 Was VTE Risk Assessment Performed: Yes VTE Score: 8 VTE Risk Level: Moderate Risk Clinical Trial Participant: No - Prophylaxis VTE Prophylaxis Ordered?: Yes Types of VTE Prophylaxis: TEDS Knee High Location of Applied Device: Bilateral Lower Extremeties
--- NOTE | 2021-03-28 08:17 | HMH.HP ---
*Admission Date: 03/28/21 <Christina Torres 03/28/21 08:26> *Chief complaint: shortness of breath <Christina Torres 03/28/21 08:26> *History of present illness: Ms. Buchanan is a 60-year-old female with a history of oxygen dependent COPD, ischemic cardiomyopathy, and tobacco abuse who has felt poorly for the past 2 to 3 weeks. She states she fell approximately 3 weeks ago she fell and landed on her chest. A week later she began having upper respiratory symptoms of cough and congestion. 3 days ago she began getting short of breath and was worried she may have had a pneumonia. The shortness of breath progressively worsened. She was seen Dr. Toscano's office yesterday and brought to the emergency room. She states her cough has been productive of green sputum. She denies any fever. She is complained of swelling in her hands and ankles. Her Covid test was negative in the emergency room, but she was found to have worsening pneumonia on chest x-ray. Echo is still pending. <Christina Torres 03/28/21 08:26> [facility] History I have reviewed the patient's past medical history: Yes <Christina Torres 03/28/21 08:26> Medical History: Reports:: Anxiety, Arrhythmia, Atrial Fibrillation, Congestive Heart Failure, Depression, Home Oxygen, Hyperlipidemia, Hypertension Denies:: Cancer, Diabetes Mellitus Type 1, Diabetes Mellitus Type 2, Internal Pacemaker, MRSA <Christina Torres 03/28/21 08:26> *Have you ever received a pneumonia vaccine?: No <Christina Torres 03/28/21 08:26> *Have you received a flu vaccine this season?: No <Christina Torres 03/28/21 08:26> Other Medical History: Reports: Arthritis, Hypothyroidism, Liver Disease, Thyroid Disease <Christina Torres 03/28/21 08:26> Laterality Cases: Left: Other, Right: Carpal Tunnel Release <Christina Torres 03/28/21 08:26> Other Surgeries: Yes: Cardiac Catheterization, Cholecystectomy, Hysterectomy-Total, Thyroidectomy, Tubal Ligation, Other (jaw, hysterectomy). No: Pacemaker <Christina Torres 03/28/21 08:26> Amputation: No <Christina Torres 03/28/21 08:26> Fractures: Yes <Christina Torres 03/28/21 08:26> - *Social History Last grade of school completed: High school graduate <Christina Torres 03/28/21 08:26> Smoking Status: Current every day smoker <Christina Torres 03/28/21 08:26> Tobacco Type: cigarettes <MelissaChristina 03/28/21 08:26> # Packs/Day (cigarettes): 1 <Christina Torres 03/28/21 08:26> Alcohol Intake: never <Christina Torres 03/28/21 08:26> Alcohol Intake Frequency:: holidays/special occasions only <ChrismarcelinoChristina 03/28/21 08:26> Substance Use Type: denies use <MelissaChristina 03/28/21 08:26> *Occupational Status:: disabled <ChrismarcelinoChristina 03/28/21 08:26> Housing: house <MelissaChristina 03/28/21 08:26> Household Members: none <Christina Torres 03/28/21 08:26> *Travel in the last 8 weeks: None <ChrismarcelinoChristina 03/28/21 08:26> - Psychiatric History Pschychiatric History:: Reports:: Anxiety, Depression <MelissaChristina 03/28/21 08:26> Family Hx:: Non-contributory <ChrismarcelinoChristina 03/28/21 08:26> Review of Systems - Constitutional Reports weakness, Denies chills, Denies fever(s) <MelissaChristina 03/28/21 08:26> - Eyes Denies blurry vision, Denies double vision <MelissaChristina 03/28/21 08:26> - ENT Reports nasal congestion, Denies sore throat <MelissaChristina 03/28/21 08:26> - *Cardiovascular Reports chest pain, Reports shortness of breath <MelissaChristina 03/28/21 08:26> - *Respiratory Reports cough, Reports shortness of breath (She left) <MelissaChristina 03/28/21 08:26> - *Gastrointestinal Denies abdominal pain, Denies loose stools, Denies nausea, Denies vomiting <Christina Torres - 03/28/21 08:26> - *Genitourinary Denies difficulty urinating, Denies painful urination <Christina Torres 03/28/21 08:26> - *Musculoskeletal Denies joint pain, Denies body aches <Christina Torres 03/28/21 08:26> - *Neurologic Reports dizziness, Reports weakness, Denies
--- NOTE | 2021-03-28 08:50 | PC.NURSE ---
Pt unable to produce sputum at this time, specimen cup at bedside
--- NOTE | 2021-03-28 09:03 | HMH.PHAINT ---
HOME MEDICATION LIST VERIFIED USING LIST FROM OUTPATIENT PHARMACY
--- NOTE | 2021-03-28 17:49 | PC.NURSE ---
Pt has reported chest and head pain today. Toradol administered per apr, pt first denied relief but stated later she was feeling somewhat better. She states she would like to find a therapist after dc'ing home. Her boyfriend last week and she feels like she would like to talk to someone. She has had a bath today. No change from morning assessment. Sputum collected and sent to lab. Bed locked and in lowest position. Call light within reach.
[2021-03-29] VITALS (13 sets, daily range): BP systolic 96–126; BP diastolic 61–87; PULSE 58–73; RESP 18–20; TEMP 36.3–37.1; O2SAT 91–95; BMI 23.6
[2021-03-29 05:51] LABS: Basophils % 0.4 % (0.1-2.0); Eosinophils # 0.2 K/mm3 (0.0-0.4); Eosinophils % 1.8 % (0.1-12.0); Lymphocytes # 2.4 K/mm3 (0.7-4.5); Lymphocytes % 21.6 % (10-50); Mean Corpuscular HGB Conc 32.6 g/dL (31.8-35.4); Mean Corpuscular Hemoglobin 33.5 pg (27.0-31.2); Mean Corpuscular Volume 102.6 fl (81-99); Mean Platelet Volume 8.2 fl (7.4-10.4); Monocytes # 0.6 K/mm3 (0.1-1.0); Monocytes % 5.6 % (1.7-9.3); Neutrophils # 7.7 K/mm3 (1.8-7.8); Neutrophils % 70.5 % (37.0-80.0); Platelet Count 312 K/mm3 (142-424); Red Blood Count 4.19 M/mm3 (4.20-5.40); Red Cell Distribution Width 13.2 % (11.5-17.5)
[2021-03-29 06:03] LABS: Chloride 99 mmol/L (98-107); Sodium 133 mmol/L (136-145)
[2021-03-29 06:06] LABS: Blood Urea Nitrogen 16 mg/dl (7-17); Carbon Dioxide 33 mmol/L (22.0-30.0); Creatinine Clearance Estimated 106 mL/min (50-200); Estimated Glomerular Filt Rate 86 ml/min (>60); GFR (African American) 104 ML/MIN (>60)
[2021-03-29 06:07] LABS: Calcium 7.9 mg/dl (8.4-10.2); Glucose 84 mg/dl (74-100)
--- NOTE | 2021-03-29 08:24 | HMH.ACPN2 ---
<Christina Torres - Last Filed: 03/29/21 08:24> Internal Medicine - PN: Subj *Date: 03/29/21 *Time: 08:24 Interval history: Patient states she is feeling better today. She thinks her breathing has improved and she has less wheezing. She was able to sleep last night and did eat this morning. Exam Vital signs and Labs for Last 24 Hours: Temp Pulse Resp BP Pulse Ox 98.3 F 66 20 126/74 92 L 03/29/21 07:31 03/29/21 07:31 03/29/21 07:31 03/29/21 07:31 03/29/21 07:31 Laboratory Results - last 24 hr 03/29/21 05:14: WBC 11.0 H, RBC 4.19 L, Hgb 14.0, Hct 43.0, MCV 102.6 H, MCH 33.5 H, MCHC 32.6, RDW 13.2, Plt Count 312, MPV 8.2, Neut % (Auto) 70.5, Lymph % (Auto) 21.6, [place] % (Auto) 5.6, Eos % (Auto) 1.8, Baso % (Auto) 0.4, Neut # (Auto) 7.7, Lymph # (Auto) 2.4, [place] # (Auto) 0.6, Eos # (Auto) 0.2, Baso # (Auto) 0.0 03/29/21 05:14: Sodium 133 L, Potassium 4.0, Chloride 99, Carbon Dioxide 33 H, Anion Gap 5.0, BUN 16 D, Creatinine 0.70 D, Estimated Creat Clear 106, Estimated GFR 86, Est GFR ( Amer) 104 D, Glucose 84, Calcium 7.9 L I & O for Last 24 hours: Intake & Output 03/26/21 03/27/21 03/28/21 03/29/21 11:59 11:59 11:59 11:59 Intake Total 240 / 240 600 / 600 Balance 240 / 240 600 / 600 Weight 172 lb 15.983 oz 169 lb Microbiology Reports for the Last 24 Hours: Microbiology 03/27/21 14:45 Blood Blood Culture - Preliminary 03/28/21 10:30 Sputum - Expectorated Sputum Gram Stain - Final - Constitutional no acute distress - *Routine Respiratory Exam Present: decreased breath sounds, rhonchi, wheezes (Improved from yesterday) - *Routine Cardiovascular Exam Present: RRR - *Routine Abdominal Exam Present: soft, normoactive bowel sounds. Absent: tenderness - *Routine Extremities Exam Absent: cyanosis, clubbing, edema - *Routine Skin Exam Present: warm. Absent: rash - *Routine Neurological Exam Present: alert, oriented X3 Assessment and Plan (1) Pneumonia, community acquired Status: Acute Qualifiers: Laterality: unspecified laterality Qualified Code(s): J18.9 - Pneumonia, unspecified organism Category: Medical Code(s): J18.9 - Pneumonia, unspecified organism (2) LFT elevation Status: Acute Category: Medical Code(s): R79.89 - Other specified abnormal findings of blood chemistry (3) Cardiomyopathy Status: Chronic Qualifiers: Cardiomyopathy type: unspecified Qualified Code(s): I42.9 - Cardiomyopathy, unspecified Category: Medical Code(s): I42.9 - Cardiomyopathy, unspecified (4) CHF (congestive heart failure) Status: Chronic Qualifiers: Heart failure type: unspecified Heart failure chronicity: unspecified Qualified Code(s): I50.9 - Heart failure, unspecified Category: Medical Code(s): I50.9 - Heart failure, unspecified (5) Elevated left ventricular end-diastolic pressure (LVEDP) Status: Chronic Category: Medical Code(s): R94.30 - Abnormal result of cardiovascular function study, unspecified (6) Hyperlipidemia Status: Chronic Qualifiers: Hyperlipidemia type: mixed hyperlipidemia Qualified Code(s): E78.2 - Mixed hyperlipidemia Category: Medical Code(s): E78.5 - Hyperlipidemia, unspecified (7) Hypertension Status: Chronic Qualifiers: Hypertension type: primary hypertension Qualified Code(s): I10 - Essential (primary) hypertension Category: Medical Code(s): I10 - Essential (primary) hypertension (8) Tobacco use Status: Chronic Category: Social Hx Code(s): Z72.0 - Tobacco use (9) COPD (chronic obstructive pulmonary disease) Status: Chronic Category: Medical Code(s): J44.9 - Chronic obstructive pulmonary disease, unspecified - Assessment and plan all Dx Assessment and Plan for all problems:: White blood cell count is decreasing. Will continue antibiotics and will discuss further care with Dr. Siegel. <Campos Siegel - Last Filed: 03/29/21 0
[2021-03-30] VITALS: BP 114/66; PULSE 64; PULSE 65; RESP 19; TEMP 36.8; O2SAT 96
[2021-03-30 04:00] VITALS: BP 140/90; PULSE 60; PULSE 66; RESP 19; TEMP 36.6; O2SAT 94
--- NOTE | 2021-03-30 04:54 | PC.NURSE ---
Addendum entered by Alea Good RN 03/30/21 04:58: Maintaining O2 sat > 90 on 2.5 L NC Original Note: No acute changes or episodes thus far during my shift. Pt did state that she is hoping to go home today. Pt is on 2.5 L NC, pt states that is what she normally wears at home. Pt has slept well this shift. No needs voiced at this time. Call light in reach.
[2021-03-30 05:00] VITALS: BMI 24.0
[2021-03-30 06:40] VITALS: PULSE 70; PULSE 74; O2SAT 93
[2021-03-30 08:00] VITALS: BP 113/74; PULSE 60; PULSE 63; RESP 16; TEMP 36.6; O2SAT 95
--- NOTE | 2021-03-30 08:39 | HMH.ACPN2 ---
Internal Medicine - PN: Subj *Date: 03/30/21 *Time: 09:07 Interval history: Patient feels better today, ready to go home. Exam Vital signs and Labs for Last 24 Hours: Temp Pulse Resp BP Pulse Ox 97.8 F 63 16 113/74 95 03/30/21 08:00 03/30/21 08:00 03/30/21 08:00 03/30/21 08:00 03/30/21 08:00 Vital Signs - 24 hr 03/29/21 09:03 03/29/21 11:28 03/29/21 12:00 Temperature 97.8 F Pulse Rate 66 66 Pulse Rate [Left Radial] 60 Respiratory Rate 20 Blood Pressure [Right Arm] 118/77 02 Sat by Pulse Oximetry 94 L 03/29/21 15:29 03/29/21 16:00 03/29/21 20:00 Temperature 97.3 F L 97.9 F Pulse Rate 58 L 65 Pulse Rate [Left Radial] 60 73 Respiratory Rate 20 18 Blood Pressure [Right Arm] 109/68 L 116/87 02 Sat by Pulse Oximetry 93 L 93 L 03/29/21 20:38 03/29/21 20:39 03/30/21 00:00 Temperature 98.2 F Pulse Rate 67 66 65 Pulse Rate [Left Radial] 64 Respiratory Rate 19 Blood Pressure [Right Arm] 114/66 02 Sat by Pulse Oximetry 96 03/30/21 04:00 03/30/21 08:00 Temperature 97.9 F 97.8 F Pulse Rate 60 Pulse Rate [Left Radial] 66 63 Respiratory Rate 19 16 Blood Pressure [Right Arm] 140/90 113/74 02 Sat by Pulse Oximetry 94 L 95 I & O for Last 24 hours: Intake & Output 03/27/21 03/28/21 03/29/21 03/30/21 23:59 23:59 23:59 23:59 Intake Total 480 / 600 640 / 640 600 / 600 Balance 480 / 600 640 / 640 600 / 600 Weight 171 lb 5 oz 172 lb 15.983 oz 169 lb 171 lb 6.4 oz Microbiology Reports for the Last 24 Hours: Microbiology 03/27/21 14:45 Blood Blood Culture - Preliminary NO GROWTH AFTER 48 HOURS - Constitutional no acute distress - *Routine HEENT Exam Head: Present: normocephalic Eye: Present: EOMI, PERRL ENT: Present: mucous membranes moist - *Routine Neck Exam Present: supple. Absent: lymphadenopathy - *Routine Respiratory Exam Present: wheezes (rare). Absent: crackles - *Routine Cardiovascular Exam Present: RRR - *Routine Abdominal Exam Present: soft, normoactive bowel sounds. Absent: tenderness - *Routine Extremities Exam Absent: cyanosis, clubbing, edema - *Routine Skin Exam Present: warm. Absent: rash - *Routine Neurological Exam Present: alert, oriented X3 Assessment and Plan (1) Pneumonia, community acquired Status: Acute Qualifiers: Laterality: unspecified laterality Qualified Code(s): J18.9 - Pneumonia, unspecified organism Category: Medical Code(s): J18.9 - Pneumonia, unspecified organism (2) LFT elevation Status: Acute Category: Medical Code(s): R79.89 - Other specified abnormal findings of blood chemistry (3) Cardiomyopathy Status: Chronic Qualifiers: Cardiomyopathy type: unspecified Qualified Code(s): I42.9 - Cardiomyopathy, unspecified Category: Medical Code(s): I42.9 - Cardiomyopathy, unspecified (4) CHF (congestive heart failure) Status: Chronic Qualifiers: Heart failure type: unspecified Heart failure chronicity: unspecified Qualified Code(s): I50.9 - Heart failure, unspecified Category: Medical Code(s): I50.9 - Heart failure, unspecified (5) Elevated left ventricular end-diastolic pressure (LVEDP) Status: Chronic Category: Medical Code(s): R94.30 - Abnormal result of cardiovascular function study, unspecified (6) Hyperlipidemia Status: Chronic Qualifiers: Hyperlipidemia type: mixed hyperlipidemia Qualified Code(s): E78.2 - Mixed hyperlipidemia Category: Medical Code(s): E78.5 - Hyperlipidemia, unspecified (7) Hypertension Status: Chronic Qualifiers: Hypertension type: primary hypertension Qualified Code(s): I10 - Essential (primary) hypertension Category: Medical Code(s): I10 - Essential (primary) hypertension (8) Tobacco use Status: Chronic Category: Social Hx Code(s): Z72.0 - Tobacco use (9) COPD (chronic obstructive pulmonary disease) Status:
[2021-03-30 08:48] VITALS: PULSE 62
--- NOTE | 2021-03-31 16:18 | HMH.DCSUM ---
General - General Admission date:: 03/28/21 Discharge date: 03/30/21 HPI HPI: Ms. Buchanan is a 60-year-old female with a history of oxygen dependent COPD, ischemic cardiomyopathy, and tobacco abuse who felt poorly for 2 to 3 weeks prior to admission. She stated she fell approximately 3 weeks ago and landed on her chest. A week later she began having upper respiratory symptoms of cough and congestion. 3 days prior to admission she began getting short of breath and was worried she may have had a pneumonia. The shortness of breath progressively worsened. She was seen in Dr. Toscano's office yesterday and brought to the emergency room. She stated her cough was productive of green sputum. She denied any fever. She was complained of swelling in her hands and ankles. Her Covid test was negative in the emergency room, but she was found to have worsening pneumonia on chest x-ray. Hospital Course Hospital Course: On admission patient was started duo nebs and antibiotics. Her breathing did improve and she had less wheezing. She was able to eat and sleep. 03/30/2021 she was feeling much better and was wanting to go home. She was afebrile and O2 sats were stable on oxygen. She was discharged home on this date in stable and satisfactory condition. She was to continue on Levaquin for 7 days. She was to follow-up with her PCP in 1 week. Objective Vital signs: Temp Pulse Resp BP Pulse Ox 97.8 F 62 16 113/74 95 03/30/21 08:00 03/30/21 08:48 03/30/21 08:00 03/30/21 08:00 03/30/21 08:00 Narrative: Exam Vital signs and Labs for Last 24 Hours: Temp Pulse Resp BP Pulse Ox 97.8 F 63 16 113/74 95 03/30/21 08:00 03/30/21 08:00 03/30/21 08:00 03/30/21 08:00 03/30/21 08:00 Vital Signs - 24 hr 03/29/21 09:03 03/29/21 11:28 03/29/21 12:00 Temperature 97.8 F Pulse Rate 66 66 Pulse Rate [Left Radial] 60 Respiratory Rate 20 Blood Pressure [Right Arm] 118/77 02 Sat by Pulse Oximetry 94 L 03/29/21 15:29 03/29/21 16:00 03/29/21 20:00 Temperature 97.3 F L 97.9 F Pulse Rate 58 L 65 Pulse Rate [Left Radial] 60 73 Respiratory Rate 20 18 Blood Pressure [Right Arm] 109/68 L 116/87 02 Sat by Pulse Oximetry 93 L 93 L 03/29/21 20:38 03/29/21 20:39 03/30/21 00:00 Temperature 98.2 F Pulse Rate 67 66 65 Pulse Rate [Left Radial] 64 Respiratory Rate 19 Blood Pressure [Right Arm] 114/66 02 Sat by Pulse Oximetry 96 03/30/21 04:00 03/30/21 08:00 Temperature 97.9 F 97.8 F Pulse Rate 60 Pulse Rate [Left Radial] 66 63 Respiratory Rate 19 16 Blood Pressure [Right Arm] 140/90 113/74 02 Sat by Pulse Oximetry 94 L 95 I & O for Last 24 hours: Intake & Output 03/27/21 03/28/21 03/29/21 03/30/21 23:59 23:59 23:59 23:59 Intake Total 480 / 600 640 / 640 600 / 600 Balance 480 / 600 640 / 640 600 / 600 Weight 171 lb 5 oz 172 lb 15.983 oz 169 lb 171 lb 6.4 oz Microbiology Reports for the Last 24 Hours: Microbiology 03/27/21 14:45 Blood Blood Culture - Preliminary NO GROWTH AFTER 48 HOURS - Constitutional no acute distress - *Routine HEENT Exam Head: Present: normocephalic Eye: Present: EOMI, PERRL ENT: Present: mucous membranes moist - *Routine Neck Exam Present: supple. Absent: lymphadenopathy - *Routine Respiratory Exam Present: wheezes (rare). Absent: crackles - *Routine Cardiovascular Exam Present: RRR - *Routine Abdominal Exam Present: soft, normoactive bowel sounds. Absent: tenderness - *Routine Extremities Exam Absent: cyanosis, clubbing, edema - *Routine Skin Exam Present: warm. Absent: rash - *Routine Neurological Exam Present: alert, oriented X3 Results Completed studies during hospitalization [Text1]: 03/27/2021 ECHO Conclusion 1. Normal left ventricular size with preserved left ventricular systolic function, visually estimated ejection fraction 55%
== END 2021-03-30 11:02 | disposition home or self-care (01) | DRG 194 ==
LOC: ER 17:31 → 2ND 17:52
PROVIDERS: Admitting Provider Family Medicine; Emergency Provider Emergency Medicine; PCP Nurse Practitioner; Visit Provider Family Medicine
DX: J18.9 Pneumonia, unspecified organism (principal); I42.9 Cardiomyopathy, unspecified; J44.0 Chronic obstructive pulmonary disease with (acute) lower respiratory infection; I50.9 Heart failure, unspecified; E78.5 Hyperlipidemia, unspecified; I11.0 Hypertensive heart disease with heart failure; Z99.81 Dependence on supplemental oxygen; Z20.822 Contact with and (suspected) exposure to COVID-19; F17.210 Nicotine dependence, cigarettes, uncomplicated; F32.A Depression, unspecified; F41.9 Anxiety disorder, unspecified
CPT/HCPCS: 36415; 71046; 80048; 80076; 83605; 83880; 84484; 85025; 87040; 87070; 87077; 87186; 87205; 93308; 94640; 96365; 99284; C9803; G0378; J1956; U0003; U0005

== ENCOUNTER 2021-11-17 17:00 | Emergency (ER) | payer MEDICAID, SELFPAY ==
[2021-11-17 17:01] VITALS: BP 128/80; PULSE 89; RESP 22; TEMP 39.5; O2SAT 89; BMI 20.9
--- NOTE | 2021-11-17 17:03 | XR_ITS ---
PROCEDURE INFORMATION: Exam: XR Chest Exam date and time: 11/17/2021 5:21 PM Age: 60 years old Clinical indication: Cough and shortness of breath; On breathing; Patient HX: SOA, lt sided flank pain, cough w tightness. HX pneumonia x 1 wk ago. HX copd, asthma, emphysema TECHNIQUE: Imaging protocol: Radiologic exam of the chest. Views: 1 view. COMPARISON: CR XR CHEST 2V 03/27/2021 2:05 PM FINDINGS: Lungs: Bilateral hyperinflation is present. Atelectasis and/or early infiltrative changes noted within both lung bases. Pleural spaces: There is no evidence of pneumothorax. Heart/Mediastinum: Unremarkable. No cardiomegaly. Bones/joints: Stable appearance of the glenohumeral and AC joints bilaterally. The thoracic spine demonstrates mild degenerative changes at multiple levels. IMPRESSION: 1. Bilateral hyperinflation is present. 2. Atelectasis and/or early infiltrative changes noted within both lung bases.
--- NOTE | 2021-11-17 17:03 | HMH.EDGENADL ---
Discharge Plan Disposition Patient Disposition: Home, Self-Care Condition: Fair Prescriptions Prescriptions: New prednisone 20 mg tablet 40 mg PO DAILY 7 Days Qty: 14 0RF levofloxacin 750 mg tablet 750 mg PO DAILY 7 Days Qty: 7 0RF No Action gabapentin 600 mg tablet 600 mg PO DAILY Label Comments: TAKE 1 TABLET BY MOUTH ONCE DAILY FOR PAIN levothyroxine 125 mcg tablet 125 mcg PO DAILY duloxetine 30 mg capsule,delayed release(DR/EC) 30 mg PO DAILY meclizine 25 mg tablet 25 mg PO BIDP PRN (Reason: Dizziness) pantoprazole 40 mg tablet,delayed release (DR/EC) 40 mg PO DAILY Qty: 90 3RF digoxin 125 mcg (0.125 mg) tablet 125 mcg PO DAILY Qty: 30 5RF carvedilol 6.25 mg tablet 6.25 mg PO BID Qty: 60 5RF Rx Instructions: must administer with a meal/food atorvastatin 40 mg tablet 40 mg PO HS Qty: 30 3RF amiodarone 200 mg tablet 200 mg PO DAILY Qty: 30 5RF furosemide 40 mg tablet 40 mg PO DAILY Qty: 30 5RF rivaroxaban 20 mg tablet 20 mg PO PM Qty: 30 5RF sacubitril-valsartan 49-51 mg tablet 1 tab PO BID Qty: 60 5RF Rx Instructions: 49/51mg tizanidine 2 MG tablet 4 mg PO BID citalopram 10 MG tablet 10 mg PO DAILY Label Comments: TAKE 1 TABLET BY MOUTH ONCE DAILY albuterol sulfate 1.25 MG/3 ML solution for nebulization 1.25 mg IH Q4HP PRN (Reason: Shortness Of Breath) famotidine 40 MG tablet 40 mg PO BID Label Comments: TAKE 1 TABLET BY MOUTH TWICE DAILY amitriptyline 25 MG tablet 25 mg PO HS diclofenac sodium 75 MG tablet,delayed release (DR/EC) 75 mg PO BID albuterol sulfate 8.5 GM HFA aerosol inhaler 1 puff IH Q4HP PRN (Reason: Shortness Of Breath) budesonide-formoterol 10.2 GM HFA aerosol inhaler 2 puffs IH BID potassium chloride 20 MEQ tablet 20 meq PO DAILY oxycodone-acetaminophen 1 EACH tablet 1 tab PO TID PRN (Reason: pain) levofloxacin 500 MG tablet 500 mg PO DAILY Qty: 7 0RF Referrals Follow up/Referrals: Solange Mills APRN [Primary Care Provider] - See instructions Activity Restrictions/Add. Instructions Additional Instructions/Restrictions: You have been evaluated for cough, diagnosed with COPD exacerbation with pneumonia. Please take steroids and Levaquin as prescribed. Use your inhaler and nebulizer. Use oxygen if your pulse oximeter number is less than 92%. Follow-up with your primary care doctor in 1 to 2 days for symptom recheck. Return to the emergency department at once for any new or worsening symptoms, difficulty breathing, chest pain, other concerns. Clinical Impressions Clinical Impression: Chronic obstructive pulmonary disease with acute exacerbation, Tobacco use, Pneumonia Instructions Patient Instructions: DI for Chronic Obstructive Pulmonary Disease, DI for Pneumonia -- Adult Discharge ED Provider: Kelley Mortensen Adult HPI General Chief complaint: Shortness of Breath/Dyspnea Stated complaint: soa Time Seen by Provider: 11/17/21 17:03 Mode of Arrival: EMS Source of Information: Patient Limitations: No Limitations History of Present Illness HPI narrative: 60-year-old female presenting to the emergency department with cough, shortness of breath, wheezing. Symptoms started 1 to 2 days ago. She has frequent cough, wheezing. Feels like her chest is tight and is difficult to get enough air. Has been using her inhalers without relief. Was not at home, so could not use her nebulizer. She does not use home oxygen. She was on antibiotics and steroids about 3 weeks ago. Continues to smoke cigarettes. No exertional chest pain. No pain with inspiration. No leg swelling. No fevers or chills. She had a recent COVID test that was negative. Related Data Home Medications Medication Instructions Recorded Confirmed duloxetine 30 mg capsule,delayed 30 mg PO DAILY Depression 11/04/2004/09
--- NOTE | 2021-11-17 17:14 | PC.NURSE ---
RESP NOTIFIED OF VBG
--- NOTE | 2021-11-17 17:15 | PC.NURSE ---
CULTURES AND BLOOD SENT TO LAB
[2021-11-17 17:26] LABS: Basophils # 0.1 K/mm3 (0-0.2); Basophils % 0.5 % (0.1-2.0); Eosinophils # 0.3 K/mm3 (0.0-0.4); Eosinophils % 1.9 % (0.1-12.0); Hematocrit 44.5 % (37.0-47.0); Hemoglobin 14.6 g/dL (12.2-16.2); Lymphocytes # 0.4 K/mm3 (0.7-4.5); Lymphocytes % 2.8 % (10-50); Mean Corpuscular HGB Conc 32.9 g/dL (31.8-35.4); Mean Corpuscular Hemoglobin 33.7 pg (27.0-31.2); Mean Corpuscular Volume 102.4 fl (81-99); Mean Platelet Volume 8.3 fl (7.4-10.4); Monocytes # 0.3 K/mm3 (0.1-1.0); Monocytes % 1.8 % (1.7-9.3); Neutrophils # 14.1 K/mm3 (1.8-7.8); Platelet Count 346 K/mm3 (142-424); Red Blood Count 4.34 M/mm3 (4.20-5.40); Red Cell Distribution Width 13.8 % (11.5-17.5); White Blood Count 15.2 K/mm3 (4.8-10.8)
[2021-11-17 17:28] LABS: VBG Base Excess 4.1 mmol/L (-2.4-2.3); VBG HCO3 28.9 mmol/L (23-30); VBG Oxygen Saturation 62.6 % (50-70); VBG PCO2 47.8 mmol/L (35-51); VBG PO2 29.9 mmol/L (28-40); VBG Total CO2 30.3 mmol/L (23-27)
[2021-11-17 17:29] LABS: Alanine Aminotransferase 21 U/L (12-78); Albumin/Globulin Ratio 1.2 (1.1-1.8); Alkaline Phosphatase 135 U/L (38-126); Anion Gap 10.2 mEq/L (5-15); Aspartate Amino Transferase 33 U/L (14-36); Bilirubin,Total 0.4 mg/dl (0.2-1.3); Blood Urea Nitrogen 12 mg/dl (7-17); Calcium 8.6 mg/dl (8.4-10.2); Carbon Dioxide 31 mmol/L (22.0-30.0); Chloride 97 mmol/L (98-107); Creatinine Clearance Estimated 110 mL/min (50-200); Estimated Glomerular Filt Rate 103 ml/min (>60); GFR (African American) 124 ML/MIN (>60); Globulin 3.4 g/dL (1.3-3.2); Glucose 118 mg/dl (74-100); MANUAL DIFFERENTIAL MANUAL DIFFERENTIAL (MANUAL DIFF); Potassium 3.2 mmoL/L (3.5-5.1); Sodium 135 mmol/L (136-145); Total Protein,Serum 7.4 g/dl (6.3-8.2)
[2021-11-17 17:30] VITALS: BP 117/76; PULSE 78; O2SAT 91
[2021-11-17 17:37] LABS: Coronavirus 19, PCR Not Detected (NotDetected); Influenza A, PCR Not Detected (NotDetected); Influenza B, PCR Not Detected (NotDetected)
[2021-11-17 17:43] LABS: Troponin I < 0.01 ng/ml (0.00-0.034)
[2021-11-17 17:45] LABS: Lymphocytes % 6 % (10-50); Monocytes % 4 % (2-9); Neutrophils % 90 % (42-76); Total Cells Counted 100
[2021-11-17 17:46] LABS: Anisocytosis 1+; Hypochromasia 1+; Microcytosis 1+; Platelet Estimate Normal
[2021-11-17 18:00] VITALS: BP 130/78; PULSE 73; O2SAT 91
[2021-11-17 18:30] VITALS: BP 134/83; PULSE 80; O2SAT 91
--- NOTE | 2021-11-17 19:06 | ECG_ITS ---
APPROVED REPORT Exam: Resting ECG HR:78 bpm ECG Measurements Heart Rate 78 AXES TX 157 P 79 QRSd 133 QRS 77 QT 416 T 87 QTc 449 Conclusion SINUS RHYTHM INTRAVENTRICULAR CONDUCTION DELAY [130+ ms QRS DURATION] ABNORMAL ECG UNCONFIRMED REPORT Electronically signed by : Favian Willard MD 11/18/2021 20:13:12
[2021-11-17 19:48] VITALS: BP 111/76; PULSE 71; RESP 20; TEMP 36.6; O2SAT 93
--- NOTE | 2021-11-17 20:48 | PC.NURSE ---
DAUGHTER ARRIVED FOR TRANSPORT HOME. PT DENIES SHORTNESS OF AIR. NO COMPLAINTS VOICED. NO ACUTE DISTRESS NOTED.
== END 2021-11-17 20:49 | disposition home or self-care (01) ==
PROVIDERS: Emergency Provider Emergency Medicine; PCP Nurse Practitioner
DX: J44.1 Chronic obstructive pulmonary disease with (acute) exacerbation (principal); J18.9 Pneumonia, unspecified organism; R42 Dizziness and giddiness; E87.6 Hypokalemia; E87.8 Other disorders of electrolyte and fluid balance, not elsewhere classified; M79.10 Myalgia, unspecified site; Z20.822 Contact with and (suspected) exposure to COVID-19; Z79.02 Long term (current) use of antithrombotics/antiplatelets; Z79.51 Long term (current) use of inhaled steroids; Z79.899 Other long term (current) drug therapy; Z88.0 Allergy status to penicillin; Z88.6 Allergy status to analgesic agent
CPT/HCPCS: 71045; 80053; 82803; 84484; 85007; 85025; 93005; 96374; 96375; 99285; C9803; J0456; J0696; U0003; U0005

== ENCOUNTER → 2021-12-12 12:59 | Outpatient (CLI) | payer MEDICAID, SELFPAY ==
[2021-12-12 13:43] LABS: Basophils # 0.2 K/mm3 (0-0.2); Basophils % 2.6 % (0.1-2.0); Eosinophils # 0.3 K/mm3 (0.0-0.4); Eosinophils % 4.3 % (0.1-12.0); Hematocrit 49.9 % (37.0-47.0); Hemoglobin 15.9 g/dL (12.2-16.2); Lymphocytes # 1.6 K/mm3 (0.7-4.5); Lymphocytes % 22.8 % (10-50); Mean Corpuscular HGB Conc 31.8 g/dL (31.8-35.4); Mean Corpuscular Hemoglobin 33.8 pg (27.0-31.2); Mean Corpuscular Volume 106.4 fl (81-99); Mean Platelet Volume 8.8 fl (7.4-10.4); Monocytes # 0.6 K/mm3 (0.1-1.0); Monocytes % 7.7 % (1.7-9.3); Neutrophils # 4.4 K/mm3 (1.8-7.8); Neutrophils % 62.6 % (37.0-80.0); Platelet Count 293 K/mm3 (142-424); Red Blood Count 4.69 M/mm3 (4.20-5.40); Red Cell Distribution Width 13.6 % (11.5-17.5); White Blood Count 7.1 K/mm3 (4.8-10.8)
[2021-12-12 14:53] LABS: Alanine Aminotransferase 18 U/L (12-78); Albumin Level 4.5 g/dl (3.5-5.0); Alkaline Phosphatase 118 U/L (38-126); Anion Gap 14.8 mEq/L (5-15); Aspartate Amino Transferase 39 U/L (14-36); Bilirubin,Direct 0.5 mg/dl (0.0-0.4); Bilirubin,Indirect 0.4 mg/dL (0.0-0.9); Bilirubin,Total 0.9 mg/dl (0.2-1.3); Bilirubin,Unconjugated 0.4 mg/dL (0.0-1.1); Blood Urea Nitrogen 16 mg/dl (7-17); Calcium 9.5 mg/dl (8.4-10.2); Carbon Dioxide 27 mmol/L (22.0-30.0); Chloride 101 mmol/L (98-107); Chol/HDL Ratio 3.3 (1-3.5); Cholesterol 250 mg/dl (140-200); Estimated Glomerular Filt Rate 86 ml/min (>60); GFR (African American) 104 ML/MIN (>60); Glucose 105 mg/dl (74-100); HDL Cholesterol 76 mg/dl (40-60); Potassium 4.8 mmoL/L (3.5-5.1); Sodium 138 mmol/L (136-145); Total Protein,Serum 7.7 g/dl (6.3-8.2); Triglycerides 150 mg/dl (30-150); VLDL Cholesterol 30 mg/dL (0-40)
[2021-12-12 15:03] LABS: Direct LDL Cholesterol 138.38 mg/dL (100-129)
[2021-12-12 15:22] LABS: Thyroid Stimulating Hormone 1.87 uIU/mL (0.465-4.68)
== END ==
PROVIDERS: PCP Nurse Practitioner; Visit Provider Internal Medicine Cardiovascular Disease
DX: E11.9 Type 2 diabetes mellitus without complications (principal); E78.2 Mixed hyperlipidemia; R06.00 Dyspnea, unspecified; I48.91 Unspecified atrial fibrillation; I48.92 Unspecified atrial flutter; I11.0 Hypertensive heart disease with heart failure; I50.21 Acute systolic (congestive) heart failure; J18.9 Pneumonia, unspecified organism; J20.9 Acute bronchitis, unspecified; J44.0 Chronic obstructive pulmonary disease with (acute) lower respiratory infection; I63.9 Cerebral infarction, unspecified
CPT/HCPCS: 36415; 80048; 80061; 80076; 84443; 85025

== ENCOUNTER 2021-12-15 10:02 | Day surgery (SDC) | payer MEDICAID, SELFPAY ==
[2021-12-15 10:07] VITALS: BMI 44.9
[2021-12-15 10:40] VITALS: BP 165/110; PULSE 86; RESP 20; O2SAT 99
--- NOTE | 2021-12-15 10:55 | EXP.CARDIOVE ---
[facility] Cardioversion Cardioversion Date: 12/15/21 Provider:: ROBBY Seaman Procedure Performed:: Synchronized electrical cardioversion Diagnosis:: Atrial fibrillation Procedure Summary:: Patient was brought to the cardiac Project Specialist as an outpatient. After informed consent was obtained, anesthesia provided sedation. A single synchronized 200 J shock was delivered cardioverting her from atrial fibrillation to normal sinus rhythm. No immediate complications noted. Complications:: None Conculsion:: Successful electrical cardioversion
[2021-12-15 10:56] VITALS: BP 154/114; PULSE 70; RESP 20; O2SAT 97
--- NOTE | 2021-12-15 10:58 | EXP.ANES.CKL ---
[facility] Medical History Congestive heart failure Dyspnea Hyperlipidemia Hypertension Family History (Updated 12/15/21 @ 10:44 by Gauri Styles RN) Other No significant family history Social History (Updated 12/15/21 @ 10:46 by Gauri Styles RN) Smoking Status: Unknown if ever smoked second hand exposure: Yes alcohol intake: never substance use type: denies use current occupational status: disabled Travel in the last 8 weeks: Inside the [employer] States household members: none housing: house caffeine: Yes [facility] Anesthesia Checklist Patient Identification Patient Identification: Arm Band Structural Data Admitted From: Home Planned Operative Procedure/s: Cardioversion Consent for Planned Operative Procedure(s) Verified: Yes Verified Documents: Surgical Consent and History and Physical NPO Status Verified Time NPO: 00:00 Additional verifications Anesthesia Reactions: No Airway Assessment C-Spine Mobility Assessed: Yes TMJ Mobility Assessed: Yes Dentition: Good Dentition Neurological Assessment Level of Consciousness: Awake and Alert Anesthesia Plan Anesthesia Risk discussed: Yes Anesthesia Plan: Verified ASA Class: III Anesthesia Type: MAC
== END 2021-12-15 11:19 | disposition home or self-care (01) ==
PROVIDERS: PCP Nurse Practitioner; Visit Provider Internal Medicine
DX: I48.91 Unspecified atrial fibrillation (principal)
CPT/HCPCS: 92960

== ENCOUNTER 2022-01-14 13:57 | Observation (INO) | payer MEDICAID, SELFPAY ==
[2022-01-14] VITALS (14 sets, daily range): BP systolic 80–132; BP diastolic 56–91; PULSE 58–91; RESP 18–23; TEMP 36.4–36.7; O2SAT 91–96; BMI 20.9
--- NOTE | 2022-01-14 13:53 | ECG_ITS ---
APPROVED REPORT Exam: Resting ECG HR:85 bpm ECG Measurements Heart Rate 85 AXES QRSd 116 QRS 84 QT 462 T -90 QTc 504 Conclusion ATRIAL FLUTTER/TACHYCARDIA WITH ABERRANT CONDUCTION OR VENTRICULAR PREMATURE COMPLEXES MODERATE INTRAVENTRICULAR CONDUCTION DELAY [110+ ms QRS DURATION] ST DEVIATION AND MODERATE T-WAVE ABNORMALITY, CONSIDER LATERAL ISCHEMIA [-0.1+ mV T-WAVE IN I/aVL/V5/V6] ST DEVIATION AND MODERATE T-WAVE ABNORMALITY, CONSIDER INFERIOR ISCHEMIA [-0.1+ mV T-WAVE IN II/aVF] ABNORMAL ECG UNCONFIRMED REPORT Electronically signed by : Favian Willard MD 01/14/2022 21:52:22
--- NOTE | 2022-01-14 14:04 | XR_ITS ---
FINAL REPORT CLINICAL HISTORY: dyspnea COMPARISON: November 17, 2021 FINDINGS: A single portable view of the chest was obtained. The heart size and pulmonary vascularity are within normal limits. The mediastinum is within normal limits. The lungs are hyperinflated consistent COPD. There are degenerative changes in the shoulders. IMPRESSION: No acute cardiopulmonary process. Reviewed, Interpreted and Dictated by Vic Munoz III, MD Transcribed by Martha Bobo Authenticated and . [facility]
[2022-01-14 14:39] LABS: Basophils # 0.1 K/mm3 (0-0.2); Basophils % 1.4 % (0.1-2.0); Eosinophils # 0.1 K/mm3 (0.0-0.4); Eosinophils % 1.3 % (0.1-12.0); Hematocrit 49.6 % (37.0-47.0); Hemoglobin 16.1 g/dL (12.2-16.2); Lymphocytes # 1.9 K/mm3 (0.7-4.5); Mean Corpuscular HGB Conc 32.3 g/dL (31.8-35.4); Mean Corpuscular Volume 101.9 fl (81-99); Mean Platelet Volume 8.8 fl (7.4-10.4); Monocytes # 0.6 K/mm3 (0.1-1.0); Monocytes % 6.3 % (1.7-9.3); Neutrophils # 7.3 K/mm3 (1.8-7.8); Neutrophils % 72.1 % (37.0-80.0); Platelet Count 289 K/mm3 (142-424); Red Blood Count 4.87 M/mm3 (4.20-5.40); Red Cell Distribution Width 13.3 % (11.5-17.5); White Blood Count 10.1 K/mm3 (4.8-10.8)
[2022-01-14 14:46] LABS: Alanine Aminotransferase 24 U/L (12-78); Albumin Level 4.4 g/dl (3.5-5.0); Albumin/Globulin Ratio 1.4 (1.1-1.8); Alkaline Phosphatase 141 U/L (38-126); Anion Gap 10.2 mEq/L (5-15); Aspartate Amino Transferase 39 U/L (14-36); Bilirubin,Total 0.5 mg/dl (0.2-1.3); Blood Urea Nitrogen 18 mg/dl (7-17); Calcium 9.2 mg/dl (8.4-10.2); Carbon Dioxide 31 mmol/L (22.0-30.0); Chloride 103 mmol/L (98-107); Creatinine Clearance Estimated 93 mL/min (50-200); Estimated Glomerular Filt Rate 86 ml/min (>60); GFR (African American) 104 ML/MIN (>60); Globulin 3.2 g/dL (1.3-3.2); Glucose 94 mg/dl (74-100); Potassium 4.2 mmoL/L (3.5-5.1); Sodium 140 mmol/L (136-145); Total Protein,Serum 7.6 g/dl (6.3-8.2)
--- NOTE | 2022-01-14 14:48 | HMH.EDGENADL ---
Discharge Plan Disposition Patient Disposition: Admitted As Inpatient Condition: Good Clinical Impressions Clinical Impression: Pneumonia Discharge ED Provider: Tiffani Hickey General Adult HPI General Chief complaint: Shortness of Breath/Dyspnea Stated complaint: soa Time Seen by Provider: 01/14/22 13:58 Mode of Arrival: EMS Source of Information: Patient and EMS Limitations: No Limitations Description of Symptoms (Recalled from ER Triage Doc. by RN): c/o soa for 2 days, pt had pna a month ago History of Present Illness HPI narrative: Dewayne is a 61 yo hx of CHF perserved EF, COPD, afib, and NSTEMI presenting to the ED for dyspnea for 2d. Of note diagnosed w/ pneumonia 1 david prior. Reports cough and congestion has improved, but not completely resolved. Denies any LE swelling/pain. No chest pain at this time. No abdominal pain, N/V/D or urinary sx. MD complaint: dyspnea Onset (ago): day(s) Related Data Home Medications Medication Instructions Recorded Confirmed duloxetine 30 mg capsule,delayed 30 mg PO DAILY Depression 11/04/20 12/12/21 release gabapentin 600 mg tablet 600 mg PO DAILY Pain 11/04/20 12/12/21 levothyroxine 125 mcg tablet 125 mcg PO DAILY thyroid 11/04/20 12/12/21 meclizine 25 mg tablet 25 mg PO BIDP PRN Dizziness 11/04/20 12/12/21 albuterol sulfate 1.25 mg/3 mL 1.25 mg inhalation Q4HP PRN 01/09/21 12/12/21 solution for nebulization Shortness Of Breath citalopram 10 mg tablet 10 mg PO DAILY Depression 01/09/21 12/12/21 famotidine 40 mg tablet 40 mg PO BID acid reflux 01/09/21 12/12/21 tizanidine 2 mg tablet 4 mg PO BID muscle spasms 01/09/21 12/12/21 albuterol sulfate 90 mcg/actuation 1 puff inhalation Q4HP PRN 01/10/21 12/12/21 aerosol inhaler Shortness Of Breath amitriptyline 25 mg tablet 25 mg PO HS sleep 01/10/21 12/12/21 budesonide-formoterol HFA 160 2 puffs inhalation BID Breathing 01/10/21 12/12/21 mcg-4.5 mcg/actuation aerosol problems inhaler diclofenac sodium 75 mg 75 mg PO BID Pain 01/10/21 12/12/21 tablet,delayed release potassium chloride 20 mEq 20 meq PO DAILY potassium 03/27/21 12/12/21 tablet,extended release(part/cryst) replacement oxycodone-acetaminophen 5 mg-325 1 tab PO TID PRN pain 03/28/21 12/12/21 mg tablet Previous Rx's Medication Instructions Recorded pantoprazole 40 mg tablet,delayed 40 mg PO DAILY GERD #90 tabs 03/04/21 release atorvastatin 40 mg tablet 40 mg PO HS Cholesterol #30 tabs 12/12/21 rivaroxaban 20 mg tablet 20 mg PO PM Blood thinner #30 tabs 12/12/21 bisoprolol fumarate 5 mg tablet 5 mg PO DAILY #30 tabs 01/15/22 furosemide 20 mg tablet 20 mg PO DAILYP PRN Shortness Of 01/15/22 Breath #30 tabs Allergies Allergy/AdvReac Type Severity Reaction Status Date / Time penicillin G [PENICILLIN G] Allergy Mild I-RASH/NV Verified 12/12/21 11:44 acetaminophen [ACETAMINOPHEN] AdvReac Mild NOT Verified 12/12/21 11:44 ALLERGIC. NEED TO WATCH DUE TO LIVER [facility] Disclaimer: The information contained in this section may have been updated after the patient was seen, as this information can be updated by other users. Medical History Atrial fibrillation/flutter Atrial flutter with rapid ventricular response CHF (congestive heart failure) Congestive heart failure COPD (chronic obstructive pulmonary disease) with acute bronchitis Dyspnea History of cardioversion Hyperlipidemia Hypertension Hypotension Surgical History (Updated 01/14/22 @ 20:28 by Hola Lunsford MD) H/O splenectomy S/P rotator cuff repair Family History (Updated 01/14/22 @ 20:30 by Hola Lunsford MD) Mother No problems noted. Father No problems noted. Other No significant family history Social History (Updated 01/14/22 @ 20:32 by Hola Lunsford MD) Smoking Status: Current every day smoker tobacco type: cigarettes packs per day: 1 second hand exposure: Yes alcohol intake:
[2022-01-14 14:58] LABS: Troponin I < 0.01 ng/ml (0.00-0.034)
--- NOTE | 2022-01-14 15:10 | CT_ITS ---
PROCEDURE INFORMATION: Exam: CTA Chest With Contrast Exam date and time: 01/14/2022 4:26 PM Age: 61 years old Clinical indication: Dyspnea TECHNIQUE: Imaging protocol: Computed tomographic angiography of the chest with contrast. 3D rendering (Not supervised by radiologist): MIP and/or 3D reconstructed images were created by the technologist. Radiation optimization: All CT scans at this facility use at least one of these dose optimization techniques: automated exposure control; mA and/or kV adjustment per patient size (includes targeted exams where dose is matched to clinical indication); or iterative reconstruction. Contrast material: ISOVUE; Contrast volume: 70 ml; Contrast route: INTRAVENOUS (IV); COMPARISON: CT ANGIO CHEST PE PROTOCOL 01/09/2021 6:56 PM FINDINGS: Pulmonary arteries: The right main pulmonary trunk measures 2.8 cm which can be seen in the context of pulmonary hypertension. Pulmonary artery is otherwise normal in caliber. No evidence of filling defects to suggest pulmonary emboli. The RV: LV ratio is less than 1. Aorta: Unremarkable. No aortic aneurysm. No aortic dissection. Lungs: Upper lobe predominant centrilobular emphysema. No evidence of airspace opacity or interlobular septal thickening. There is a left lower lobe granuloma Pleural spaces: Unremarkable. No pneumothorax. No pleural effusion. Heart: The left atrial appendage is normal. Contrast reflux into the supra hepatic veins can be seen in the context of right cardiac failure. Lymph nodes: Borderline prominent multi station mediastinal nodes, likely reactive. Gallbladder and bile ducts: Status post cholecystectomy Bones/joints: Healed sternal fracture. No acute osseous abnormality Soft tissues: Unremarkable. IMPRESSION: 1. No pulmonary embolus 2. Upper lobe predominant emphysema. 3. Contrast reflux into the supra hepatic veins can be seen in the context of right cardiac failure.
[2022-01-14 15:32] LABS: Coronavirus 19, PCR Not Detected (NotDetected); Influenza A, PCR Not Detected (NotDetected); Influenza B, PCR Not Detected (NotDetected)
--- NOTE | 2022-01-14 16:04 | PC.NURSE ---
report called to Mai STEVEN
[2022-01-14 18:03] LABS: Vitamin B12 377 pg/mL (239-931)
[2022-01-14 18:23] LABS: Troponin I < 0.01 ng/ml (0.00-0.034)
--- NOTE | 2022-01-14 19:24 | PC.NURSE ---
ALERT X4. O2 ON 2L VIA NC, BILAT LUNGS WHEEZING. PT UP CHARMAINE, TOLERATING WELL. NO CONCERNS VOICED AT THIS TIME.
--- NOTE | 2022-01-14 20:14 | EXP.HP ---
History of Present Illness *Admission Date: 01/14/22 *Reason for visit:: Chief complaint: Irregular heartbeat *History of present illness: This is a 61-year-old female that presents to [facility] emergency department with concerns of an irregular heart rhythm. Her past medical history significant for COPD, tobacco dependence, atrial fibrillation, heart failure with recovered ejection fraction, hypertension. She reports identifying abnormal rhythms over the last 4 days that have persisted and crescendoed in severity. She denies associated retrosternal chest pain, acute dyspnea at rest or confusion. She denies syncope or lightheadedness. She reports her symptomatology will be exacerbated with exertion. She is accompanied by her daughter and SHANIQUA Brown Rigoberto who assists with the history. In the ED her potassium is normal her MCV is 102 and her chest x-ray identifies no acute disease. ECG identifies atrial flutter. [facility] Disclaimer: The information contained in this section may have been updated after the patient was seen, as this information can be updated by other users. Medical History (Updated 01/14/22 @ 20:37 by Hola Lunsford MD) Congestive heart failure Dyspnea History of cardioversion Hyperlipidemia Hypertension Surgical History (Updated 01/14/22 @ 20:28 by Hola Lunsford MD) H/O splenectomy S/P rotator cuff repair Family History (Updated 01/14/22 @ 20:30 by Hola Lunsford MD) Mother No problems noted. Father No problems noted. Other No significant family history Social History (Updated 01/14/22 @ 20:32 by Hola Lunsford MD) Smoking Status: Current every day smoker tobacco type: cigarettes packs per day: 1 second hand exposure: Yes alcohol intake: never substance use type: denies use current occupational status: disabled Travel in the last 8 weeks: Inside the [place] household members: none housing: house caffeine: Yes Review of Systems Review of Systems Review of systems:: pertinent systems reviewed and negative unless documented below *Cardiovascular Cardiovascular: Denies chest pain, Reports dyspnea, Reports irregular heart rhythm and Reports rapid heart rate *Respiratory Respiratory: Reports dyspnea Meds Home Medications and Allergies Home Medications Medication Instructions Recorded Confirmed Type duloxetine 30 mg capsule,delayed 30 mg PO DAILY Depression 11/04/20 12/12/21 History release gabapentin 600 mg tablet 600 mg PO DAILY Pain 11/04/20 12/12/21 History levothyroxine 125 mcg tablet 125 mcg PO DAILY thyroid 11/04/20 12/12/21 History meclizine 25 mg tablet 25 mg PO BIDP PRN Dizziness 11/04/20 12/12/21 History albuterol sulfate 1.25 mg/3 mL 1.25 mg inhalation Q4HP PRN 01/09/21 12/12/21 History solution for nebulization Shortness Of Breath citalopram 10 mg tablet 10 mg PO DAILY Depression 01/09/21 12/12/21 History famotidine 40 mg tablet 40 mg PO BID acid reflux 01/09/21 12/12/21 History tizanidine 2 mg tablet 4 mg PO BID muscle spasms 01/09/21 12/12/21 History albuterol sulfate 90 mcg/actuation 1 puff inhalation Q4HP PRN 01/10/21 12/12/21 History aerosol inhaler Shortness Of Breath amitriptyline 25 mg tablet 25 mg PO HS sleep 01/10/21 12/12/21 History budesonide-formoterol HFA 160 2 puffs inhalation BID Breathing 01/10/21 12/12/21 History mcg-4.5 mcg/actuation aerosol problems inhaler diclofenac sodium 75 mg 75 mg PO BID Pain 01/10/21 12/12/21 History tablet,delayed release pantoprazole 40 mg tablet,delayed 40 mg PO DAILY GERD #90 tabs 03/04/21 12/12/21 Rx release potassium chloride 20 mEq 20 meq PO DAILY potassium 03/27/21 12/12/21 History tablet,extended release(part/cryst) replacement oxycodone-acetaminophen 5 mg-325 1 tab PO TID PRN pain 03/28/21 12/12/21 History mg tablet levofloxacin 500 mg tablet 500 mg PO DAILY #7 tabs 03/30/21 12/12/21 Rx digoxin 125 mcg (0.125 mg) tablet 125 mcg PO DAILY heart. #30
[2022-01-14 21:39] LABS: Troponin I < 0.01 ng/ml (0.00-0.034)
[2022-01-15] VITALS: PULSE 61; O2SAT 95
[2022-01-15 04:00] VITALS: BP 128/85; PULSE 74; PULSE 76; RESP 20; TEMP 36.6; O2SAT 96
[2022-01-15 05:00] VITALS: BMI 20.9
[2022-01-15 05:46] VITALS: PULSE 63; PULSE 71; O2SAT 94
[2022-01-15 06:36] LABS: Chloride 108 mmol/L (98-107); Potassium 3.9 mmoL/L (3.5-5.1); Sodium 140 mmol/L (136-145)
[2022-01-15 06:39] LABS: Anion Gap 5.9 mEq/L (5-15); Blood Urea Nitrogen 13 mg/dl (7-17); Carbon Dioxide 30 mmol/L (22.0-30.0); Creatinine Clearance Estimated 130 mL/min (50-200); Estimated Glomerular Filt Rate 126 ml/min (>60); GFR (African American) 153 ML/MIN (>60)
[2022-01-15 06:40] LABS: Calcium 7.9 mg/dl (8.4-10.2); Glucose 68 mg/dl (74-100); Magnesium 1.7 mg/dl (1.6-2.3); Phosphorous 3.4 mg/dl (2.5-4.5)
[2022-01-15 06:43] LABS: Basophils # 0.1 K/mm3 (0-0.2); Basophils % 1.8 % (0.1-2.0); Eosinophils # 0.1 K/mm3 (0.0-0.4); Eosinophils % 1.8 % (0.1-12.0); Hematocrit 39.8 % (37.0-47.0); Lymphocytes # 2.6 K/mm3 (0.7-4.5); Lymphocytes % 48.3 % (10-50); Mean Corpuscular HGB Conc 33.5 g/dL (31.8-35.4); Mean Corpuscular Hemoglobin 34.6 pg (27.0-31.2); Mean Corpuscular Volume 103.1 fl (81-99); Mean Platelet Volume 9.3 fl (7.4-10.4); Monocytes # 0.4 K/mm3 (0.1-1.0); Monocytes % 7.4 % (1.7-9.3); Neutrophils # 2.2 K/mm3 (1.8-7.8); Neutrophils % 40.8 % (37.0-80.0); Platelet Count 246 K/mm3 (142-424); Red Blood Count 3.86 M/mm3 (4.20-5.40); Red Cell Distribution Width 13.4 % (11.5-17.5); White Blood Count 5.4 K/mm3 (4.8-10.8)
[2022-01-15 06:58] LABS: Hemoglobin 13.3 g/dL (12.2-16.2)
[2022-01-15 08:00] VITALS: BP 121/83; PULSE 78; RESP 20; TEMP 36.6; O2SAT 94; O2SAT 95
--- NOTE | 2022-01-15 10:57 | EXP.CARD.CON ---
History of Present Illness History of Present Illness Consult date: 01/15/22 Requesting physician: Hola Lunsford Consult reason: atrial fibrillation Chief complaint: palpitations History of present illness: This is a 61-year-old white female who presented to the emergency department with a 4-day history of palpitations and racing of the heart. The patient was found to be in atrial flutter upon arrival with a rate control. She was also very hypotensive which was most likely medication induced. She denied any chest pain or pressure. She denied any shortness of breath or edema. She denied any fever, chills, nausea, vomiting, diarrhea, PND or orthopnea. This morning she states that she can still feel the palpitations but they are not as bad as they were yesterday. She states that she is ready to go home because her dog's birthday is tomorrow and she is already made republican favors and she wants to be able to celebrate. [facility] Disclaimer: The information contained in this section may have been updated after the patient was seen, as this information can be updated by other users. Medical History Atrial fibrillation/flutter Atrial flutter with rapid ventricular response CHF (congestive heart failure) Congestive heart failure COPD (chronic obstructive pulmonary disease) with acute bronchitis Dyspnea History of cardioversion Hyperlipidemia Hypertension Hypotension Surgical History (Updated 01/14/22 @ 20:28 by Hola Lunsford MD) H/O splenectomy S/P rotator cuff repair Family History (Updated 01/14/22 @ 20:30 by Hola Lunsford MD) Mother No problems noted. Father No problems noted. Other No significant family history Social History (Updated 01/14/22 @ 20:32 by Hola Lunsford MD) Smoking Status: Current every day smoker tobacco type: cigarettes packs per day: 1 second hand exposure: Yes alcohol intake: never substance use type: denies use current occupational status: disabled Travel in the last 8 weeks: Inside the [place] household members: none housing: house caffeine: Yes additional social history: The patient is single and lives alone. She identifies her daughter Stephanie as her POA. She has 3 adult children. 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 She identifies a significant smoking history of 1 pack/day for 40 years and ongoing. She denies routine alcohol consumption. She identifies with the [facility] armaan. She elects a full code. Review of Systems Review of Systems Review of systems:: pertinent systems reviewed and negative unless documented below Constitutional Constitutional: Reports system reviewed and no additional complaints, except as documented Eyes Eyes: Reports system reviewed and no additional complaints, except as documented ENT Ears, Nose, Mouth, and Throat: Reports system reviewed and no additional complaints, except as documented *Cardiovascular Cardiovascular: Reports system reviewed and no additional complaints, except as documented *Respiratory Respiratory: Reports system reviewed and no additional complaints, except as documented *Gastrointestinal Gastrointestinal: Reports system reviewed and no additional complaints, except as documented *Musculoskeletal Musculoskeletal: Reports system reviewed and no additional complaints, except as documented Integumentary/Breasts Skin/Breast: Reports system reviewed and no additional complaints, except as documented *Neurologic Neurologic: Reports system reviewed and no additional complaints, except as documented Psychiatric Psychiatric: Reports system reviewed and no additional complaints, except as documented Endocrine Endocrine: Reports system reviewed and no additional complaints, except as documented Hematologic/Lymphatic Hematologic/Lymphatic: Reports system reviewed and no additional complaints, except as documented Allergic/Immunol
[2022-01-15 11:30] VITALS: PULSE 84; O2SAT 91
[2022-01-15 11:32] VITALS: BP 130/98; PULSE 78; RESP 22; TEMP 36.7; O2SAT 91
--- NOTE | 2022-01-15 17:21 | EXP.DC.SUM ---
General Admission date:: 01/14/22 Discharge date: 01/15/22 HPI HPI HPI: This is a 61-year-old female that presents to [facility] emergency department with concerns of an irregular heart rhythm. Her past medical history significant for COPD, tobacco dependence, atrial fibrillation, heart failure with recovered ejection fraction, hypertension. She reports identifying abnormal rhythms over the last 4 days that have persisted and crescendoed in severity. She denies associated retrosternal chest pain, acute dyspnea at rest or confusion. She denies syncope or lightheadedness. She reports her symptomatology will be exacerbated with exertion. She is accompanied by her daughter and SHANIQUA Mccannrani Franklin who assists with the history. In the ED her potassium is normal her MCV is 102 and her chest x-ray identifies no acute disease. ECG identifies atrial flutter. Hospital Course Hospital Course Hospital Course: The patient is admitted to the telemetry unit with cardiology consultation. The patient identifies improvement in symptomatology with rate control. Her echocardiogram identified no acute changes with maintained EF 55%. She is inquiring about discharge home. Cardiology has evaluated the patient and her beta-iftikhar therapy is augmented. Cardiology recommends to discontinue Coreg, digoxin and amiodarone. She will be maintained on bisoprolol with anticoagulation and hold her Entresto until her blood pressure improves. 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 Exam Data for Last 24 hours Vital signs and Labs for Last 24 Hours: Temp Pulse Resp BP Pulse Ox 98.1 F 78 22 130/98 H 91 L 01/15/22 11:32 01/15/22 11:32 01/15/22 11:32 01/15/22 11:32 01/15/22 11:32 Laboratory Results - last 24 hr 01/14/22 14:15: Vitamin B12 377 01/14/22 17:26: Troponin I < 0.01 01/14/22 20:35: Troponin I < 0.01 01/15/22 05:35: WBC 5.4 D, RBC 3.86 L, Hgb 13.3 D, Hct 39.8, MCV 103.1 H, MCH 34.6 H, MCHC 33.5, RDW 13.4, Plt Count 246, MPV 9.3, Neut % (Auto) 40.8, Lymph % (Auto) 48.3, [place] % (Auto) 7.4, Eos % (Auto) 1.8, Baso % (Auto) 1.8, Neut # (Auto) 2.2, Lymph # (Auto) 2.6, [place] # (Auto) 0.4, Eos # (Auto) 0.1, Baso # (Auto) 0.1 01/15/22 05:35: Sodium 140, Potassium 3.9, Chloride 108 H, Carbon Dioxide 30, Anion Gap 5.9, BUN 13 D, Creatinine 0.50 L D, Estimated Creat Clear 130, Estimated GFR 126, Est GFR ( Amer) 153 D, Glucose 68 L D, Calcium 7.9 L, Phosphorus 3.4, Magnesium 1.7 I & O for Last 24 hours: Intake & Output 01/12/22 01/13/22 01/14/22 01/15/22 23:59 23:59 23:59 23:59 Intake Total 600 / 600 600 / 600 Output Total 0 / 0 0 / 0 Balance 600 / 600 600 / 600 Weight 65.119 kg 68.039 kg Narrative: EKG is atrial flutter with a rate of [address]/T wave abnormalities. Telemetry strip shows atrial flutter with a rate of 76 bpm. Constitutional Constitutional: no acute distress and average body habitus *Routine HEENT Exam Head: Present normocephalic and atraumatic ENT: Present mucous membranes moist *Routine Neck Exam Neck: Present supple, full ROM and normal carotid upstroke; Absent JVD, carotid bruit or lymphadenopathy *Routine Respiratory Exam Respiratory: Present CTA bilaterally, normal respiratory effort, able to speak in complete sentences and symmetric chest movement *Routine Cardiovascular Exam Cardiovascular: Present Normal S1, Normal S2 and irregular rhythm; Absent murmur or gallop *Routine Abdominal Exam Abdominal: Present soft and normoactive bowel sounds; Absent tenderness, distended or organomegaly *Routine Extremities Exam Extremities: Present full ROM, pulses intact and normal capillary refill; Absent cyanosis, clubbing or edema *Routine Skin Exam Skin: Present intact and warm; Absent erythema *Routine Neurological Exam Neurological: Present alert, oriented X3 and CN II-XII intact; Absent sensory de
--- NOTE | 2022-01-16 12:39 | CARE MANAGER ---
Patient states she is not doing much better since discharge from the hospital. 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 She states that she is aware of cardiology appointment. I recommended she follow up with PCP [facility]. She states she will contact them. Denies other questions or concerns. TENISHA Vaz
== END 2022-01-15 13:47 | disposition home or self-care (01) ==
LOC: ER 14:36 → 2ND 16:47
PROVIDERS: Admitting Provider Family Medicine; Emergency Provider Student in an Organized Health Care Education/Training Program; PCP Nurse Practitioner; Visit Provider Family Medicine
DX: I50.32 Chronic diastolic (congestive) heart failure (principal); J44.9 Chronic obstructive pulmonary disease, unspecified; F17.210 Nicotine dependence, cigarettes, uncomplicated; I11.0 Hypertensive heart disease with heart failure; E78.5 Hyperlipidemia, unspecified; Z79.899 Other long term (current) drug therapy; Z79.01 Long term (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; I48.0 Paroxysmal atrial fibrillation
CPT/HCPCS: 36415; 71045; 71275; 80048; 80053; 82607; 83605; 83735; 84100; 84145; 84484; 85025; 87040; 93005; 93306; 94640; 94760; 94761; 99285; C9803; G0378; J0696; Q9967; U0003; U0005

== ENCOUNTER → 2022-02-13 15:49 | Outpatient (CLI) | payer MEDICAID, SELFPAY ==
--- NOTE | 2022-02-13 15:53 | MR_ITS ---
PROCEDURE INFORMATION: Exam: MR Right Upper Extremity Joint Without Contrast; Shoulder Exam date and time: 02/13/2022 4:05 PM Age: 61 years old Clinical indication: Pain; Shoulder; Right; Prior surgery; Surgery date: 6+ months; Additional info: History shoulder surgery 1 year ago. Limited rom. Weakness in arm. TECHNIQUE: Imaging protocol: Magnetic resonance imaging of the Right upper extremity without contrast. Exam focused on the shoulder. COMPARISON: MR SHOULDER RT WO CON 11/07/2020 3:34 PM FINDINGS: Bones and cartilage: Interval acromioplasty and probable partial resection distal end of the clavicle. There is now a large amount of fluid interposed here extending into large amount of fluid in the subacromial subdeltoid bursa and limited marrow edema in the distal clavicle along with erosive change. Severe loss of articular cartilage glenohumeral articulation. Superior riding humerus. Increasing subchondral cystic as well as erosive changes in the humeral head. Surrounding marrow edema. Moderate effusion. If there is clinical suspicion of potential septic articulation, diagnostic aspiration of fluid would be recommended. Joint spaces: See Bones and cartilage finding. Glenoid labrum: Increasing degeneration and fraying of the glenoid labrum without acute displaced tear. Supraspinatus tendon: Full-thickness re-tear of the repaired supraspinatus tendon, retracted proximally almost 4 cm. Full-thickness re-tear of the repaired distal supraspinatus tendon with similar retraction. Fatty atrophy of both muscles. Infraspinatus tendon: Unremarkable. No evidence of tear. Subscapularis tendon: Moderate tendinopathy distal fibers of the subscapularis without retracted tear. Teres minor tendon: Unremarkable. No evidence of tear. Tendon of biceps brachii: Unremarkable. No evidence of tear. Glenohumeral ligaments: Unremarkable. Muscles: See Supraspinatus tendon finding. Soft tissues: Unremarkable. IMPRESSION: 1. Full-thickness re-tear of the repaired supraspinatus tendon, retracted proximally almost 4 cm. 2. Full-thickness re-tear of the repaired distal supraspinatus tendon with similar retraction. Fatty atrophy of both muscles. 3. Moderate tendinopathy distal fibers of the subscapularis without retracted tear. 4. Interval acromioplasty and probable partial resection distal end of the clavicle. There is now a large amount of fluid interposed here extending into large amount of fluid in the subacromial subdeltoid bursa and limited marrow edema in the distal clavicle along with erosive change. 5. Increasing degeneration and fraying of the glenoid labrum without acute displaced tear. 6. Severe loss of articular cartilage glenohumeral articulation. Superior riding humerus. 7. Increasing subchondral cystic as well as erosive changes in the humeral head. Surrounding marrow edema. Moderate effusion. If there is clinical suspicion of potential septic articulation, diagnostic aspiration of fluid would be recommended.
== END ==
PROVIDERS: PCP Nurse Practitioner; Visit Provider Orthopaedic Surgery Adult Reconstructive Orthopaedic Surgery
DX: M75.121 Complete rotator cuff tear or rupture of right shoulder, not specified as traumatic (principal)
CPT/HCPCS: 73221

== ENCOUNTER 2022-02-28 12:03 | Observation (INO) | payer MEDICAID, SELFPAY ==
[2022-02-28] VITALS (13 sets, daily range): BP systolic 92–146; BP diastolic 58–100; PULSE 55–149; RESP 13–28; TEMP 36.4–37.2; O2SAT 91–98; BMI 19.9; BMI 20.3
--- NOTE | 2022-02-28 12:09 | PC.NURSE ---
Dr Weiss speaking with Dr jeff
--- NOTE | 2022-02-28 12:09 | PC.NURSE ---
speaking with Dorcas
--- NOTE | 2022-02-28 12:17 | HMH.EDGENADL ---
Discharge Plan Disposition Patient Disposition: Admitted As Inpatient Condition: Fair Chief Complaint: Shortness of Breath/Dyspnea Prescriptions Prescriptions: No Action atorvastatin 40 mg tablet 40 mg PO HS Qty: 30 3RF rivaroxaban 20 mg tablet 20 mg PO PM Qty: 30 5RF gabapentin 600 mg tablet 600 mg PO DAILY Label Comments: TAKE 1 TABLET BY MOUTH ONCE DAILY FOR PAIN levothyroxine 125 mcg tablet 125 mcg PO DAILY duloxetine 30 mg capsule,delayed release(DR/EC) 30 mg PO DAILY meclizine 25 mg tablet 25 mg PO BIDP PRN (Reason: Dizziness) pantoprazole 40 mg tablet,delayed release (DR/EC) 40 mg PO DAILY Qty: 90 3RF tizanidine 2 MG tablet 4 mg PO BID citalopram 10 MG tablet 10 mg PO DAILY Label Comments: TAKE 1 TABLET BY MOUTH ONCE DAILY albuterol sulfate 1.25 MG/3 ML solution for nebulization 1.25 mg inhalation Q4HP PRN (Reason: Shortness Of Breath) famotidine 40 MG tablet 40 mg PO BID Label Comments: TAKE 1 TABLET BY MOUTH TWICE DAILY amitriptyline 25 MG tablet 25 mg PO HS diclofenac sodium 75 MG tablet,delayed release (DR/EC) 75 mg PO BID albuterol sulfate 8.5 GM HFA aerosol inhaler 1 puff inhalation Q4HP PRN (Reason: Shortness Of Breath) budesonide-formoterol 10.2 GM HFA aerosol inhaler 2 puffs inhalation BID potassium chloride 20 MEQ tablet 20 meq PO DAILY oxycodone-acetaminophen 1 EACH tablet 1 tab PO TID PRN (Reason: pain) bisoprolol fumarate 5 mg Tablet 5 mg PO DAILY Qty: 30 0RF furosemide 20 mg Tablet 20 mg PO DAILYP PRN (Reason: Shortness Of Breath) Qty: 30 0RF Referrals Follow up/Referrals: Solange Mills APRN [Primary Care Provider] - See instructions Clinical Impressions Clinical Impression: Atrial fibrillation/flutter, Acute exacerbation of congestive heart failure Discharge ED Provider: Michael Weiss General Adult HPI General Chief complaint: Shortness of Breath/Dyspnea Stated complaint: resp distress Time Seen by Provider: 02/28/22 12:09 Mode of Arrival: EMS Source of Information: Patient Limitations: No Limitations History of Present Illness HPI narrative: 61yo F with history of heart failure with reduced ejection fraction, COPD, A. fib presents emerged part via EMS secondary to shortness of breath chest pain. Reports symptoms began yesterday and worsened last night. Typically wears 3 L nasal cannula but now requiring 6. Denies fever, nausea/vomiting/diarrhea. Sees Dr. Toscano for cardiology Related Data Home Medications Medication Instructions Recorded Confirmed duloxetine 30 mg capsule,delayed 30 mg PO DAILY Depression 11/04/20 12/12/21 release gabapentin 600 mg tablet 600 mg PO DAILY Pain 11/04/20 12/12/21 levothyroxine 125 mcg tablet 125 mcg PO DAILY thyroid 11/04/20 12/12/21 meclizine 25 mg tablet 25 mg PO BIDP PRN Dizziness 11/04/20 12/12/21 albuterol sulfate 1.25 mg/3 mL 1.25 mg inhalation Q4HP PRN 01/09/21 12/12/21 solution for nebulization Shortness Of Breath citalopram 10 mg tablet 10 mg PO DAILY Depression 01/09/21 12/12/21 famotidine 40 mg tablet 40 mg PO BID acid reflux 01/09/21 12/12/21 tizanidine 2 mg tablet 4 mg PO BID muscle spasms 01/09/21 12/12/21 albuterol sulfate 90 mcg/actuation 1 puff inhalation Q4HP PRN 01/10/21 12/12/21 aerosol inhaler Shortness Of Breath amitriptyline 25 mg tablet 25 mg PO HS sleep 01/10/21 12/12/21 budesonide-formoterol HFA 160 2 puffs inhalation BID Breathing 01/10/21 12/12/21 mcg-4.5 mcg/actuation aerosol problems inhaler diclofenac sodium 75 mg 75 mg PO BID Pain 01/10/21 12/12/21 tablet,delayed release potassium chloride 20 mEq 20 meq PO DAILY potassium 03/27/21 12/12/21 tablet,extended release(part/cryst) replacement oxycodone-acetaminophen 5 mg-325 1 tab PO TID PRN pain 03/28/21 12/12/21 mg tablet Previous Rx's Medication Instructions Recorded pantoprazole 40 mg tablet
--- NOTE | 2022-02-28 12:18 | PC.NURSE ---
RNs in room attempting IV access
--- NOTE | 2022-02-28 12:27 | XR_ITS ---
PROCEDURE INFORMATION: Exam: XR Chest Exam date and time: 02/28/2022 12:44 PM Age: 61 years old Clinical indication: Cough and shortness of breath; Additional info: SOB TECHNIQUE: Imaging protocol: Radiologic exam of the chest. Views: 1 view. COMPARISON: CR XR CHEST PORTABLE 01/14/2022 2:25 PM FINDINGS: Lungs: Unremarkable. No consolidation. Pleural spaces: Unremarkable. No pleural effusion. No pneumothorax. Heart/Mediastinum: Unremarkable. No cardiomegaly. Bones/joints: Unremarkable. IMPRESSION: No acute findings. No infiltration identified.
[2022-02-28 12:40] LABS: Coronavirus 19, PCR Not Detected (NotDetected); Influenza A, PCR Not Detected (NotDetected); Influenza B, PCR Not Detected (NotDetected)
[2022-02-28 12:41] LABS: Basophils # 0.1 K/mm3 (0-0.2); Basophils % 0.6 % (0.1-2.0); Eosinophils # 0.3 K/mm3 (0.0-0.4); Eosinophils % 1.8 % (0.1-12.0); Hematocrit 45.1 % (37.0-47.0); Hemoglobin 15.1 g/dL (12.2-16.2); Lymphocytes # 1.5 K/mm3 (0.7-4.5); Lymphocytes % 10.1 % (10-50); Mean Corpuscular HGB Conc 33.4 g/dL (31.8-35.4); Mean Corpuscular Hemoglobin 34.1 pg (27.0-31.2); Mean Corpuscular Volume 101.9 fl (81-99); Mean Platelet Volume 8.8 fl (7.4-10.4); Monocytes # 0.9 K/mm3 (0.1-1.0); Monocytes % 5.6 % (1.7-9.3); Neutrophils # 12.5 K/mm3 (1.8-7.8); Neutrophils % 81.9 % (37.0-80.0); Platelet Count 382 K/mm3 (142-424); Red Blood Count 4.43 M/mm3 (4.20-5.40); Red Cell Distribution Width 13.8 % (11.5-17.5); White Blood Count 15.2 K/mm3 (4.8-10.8)
[2022-02-28 12:44] LABS: MANUAL DIFFERENTIAL MANUAL DIFFERENTIAL (MANUAL DIFF)
[2022-02-28 12:47] LABS: Chloride 103 mmol/L (98-107); INR 1.04 (0.9-1.1); Prothrombin Time 11.2 seconds (10.1-12.5); Sodium 140 mmol/L (136-145)
[2022-02-28 12:48] LABS: Potassium 4.1 mmoL/L (3.5-5.1)
[2022-02-28 12:50] LABS: Alanine Aminotransferase 30 U/L (12-78); Albumin Level 4.5 g/dl (3.5-5.0); Albumin/Globulin Ratio 1.2 (1.1-1.8); Alkaline Phosphatase 133 U/L (38-126); Anion Gap 9.1 mEq/L (5-15); Aspartate Amino Transferase 42 U/L (14-36); Bilirubin,Total 1.1 mg/dl (0.2-1.3); Blood Urea Nitrogen 13 mg/dl (7-17); Carbon Dioxide 32 mmol/L (22.0-30.0); Creatinine Clearance Estimated 124 mL/min (50-200); Estimated Glomerular Filt Rate 126 ml/min (>60); GFR (African American) 153 ML/MIN (>60); Globulin 3.8 g/dL (1.3-3.2); Lactic Acid 1.5 mmol/L (0.7-2.1); Total Protein,Serum 8.3 g/dl (6.3-8.2)
[2022-02-28 12:51] LABS: Calcium 9.1 mg/dl (8.4-10.2); Glucose 88 mg/dl (74-100)
[2022-02-28 13:00] LABS: Eosinophils % 1 % (0-3); Lymphocytes % 12 % (10-50); Monocytes % 5 % (2-9); NT Pro Brain Natriuretic Pep. 4490 pg/mL (0-125); Neutrophils % 82 % (42-76); Total Cells Counted 100
[2022-02-28 13:01] LABS: Macrocytosis 1+; Platelet Estimate Normal
[2022-02-28 13:03] LABS: Troponin I < 0.01 ng/ml (0.00-0.034)
--- NOTE | 2022-02-28 14:32 | ECG_ITS ---
APPROVED REPORT Exam: Resting ECG HR:90 bpm ECG Measurements Heart Rate 90 AXES QRSd 121 QRS 81 QT 426 T -69 QTc 474 Conclusion ATRIAL FLUTTER/TACHYCARDIA WITH ABERRANT CONDUCTION OR VENTRICULAR PREMATURE COMPLEXES POSSIBLE INFERIOR MYOCARDIAL INFARCTION , OF INDETERMINATE AGE [30 ms Q WAVE IN II/aVF] MODERATE T-WAVE ABNORMALITY, CONSIDER ANTEROLATERAL ISCHEMIA [-0.1+ mV T-WAVE IN V3-V6] ABNORMAL ECG UNCONFIRMED REPORT Electronically signed by : Favian Willard MD 03/02/2022 20:22:15
[2022-02-28 16:17] LABS: Troponin I 0.02 ng/ml (0.00-0.034)
--- NOTE | 2022-02-28 16:29 | EXP.HP ---
History of Present Illness *Admission Date: 02/28/22 *Reason for visit:: Chief complaint: Shortness of air *History of present illness: This is a 61-year-old female that presents to [facility] emergency department with concerns of shortness of air. Her past medical history significant for ongoing tobacco dependence, COPD, pulmonary hypertension, hepatitis C, heart failure with recovered ejection fraction, atrial fibrillation and chronic opioid therapy. She reports for the last week she has identified increasing shortness of air worse with activity and occurring at rest over the last 48 hours. She describes an increased croupy cough with no associated production. She denies associated hemoptysis. She reports no associated retrosternal chest pain, palpitations or syncopal episodes. She denies associated fever, chills, nausea, vomiting or diarrhea. She is concerned with bronchitis. In the ED she is evaluated and she is in atrial fibrillation with RVR with a heart rate of 149. Her respiratory rate is elevated and she is afebrile. She is requiring 6 L of oxygen to maintain appropriate oxygen saturations. Her laboratory studies identified mild leukocytosis with preserved hemoglobin and elevated MCV. Her BNP is 4490 and her troponins are negative. Her potassium and creatinine are normal. Her chest x-ray identifies no acute disease. Her neonatal nurse is contacted out of the ED and recommends admission and beta-iftikhar therapy for her rapid ventricular response. [facility] Medical History (Updated 02/28/22 @ 17:11 by Hola Lunsford MD) (HFpEF) heart failure with preserved ejection fraction Atrial fibrillation/flutter Chronic, continuous use of opioids COPD (chronic obstructive pulmonary disease) Coronary artery disease Hepatitis C Hyperlipidemia Hypertension Hypothyroidism Pulmonary hypertension Right rotator cuff tear Tobacco dependence Surgical History (Updated 02/28/22 @ 16:51 by Hola Lunsford MD) H/O splenectomy History of cardioversion History of cholecystectomy History of hysterectomy History of left heart catheterization History of mandibular surgery History of surgery on right wrist S/P rotator cuff repair Family History (Updated 02/28/22 @ 16:53 by Hola Lunsford MD) Mother Stroke Father Coronary artery disease Social History Smoking Status: Current every day smoker tobacco type: cigarettes packs per day: 1 years smoked: 40 second hand exposure: Yes alcohol intake: never substance use type: denies use current occupational status: unemployed and disabled Travel in the last 8 weeks: Inside the [place] household members: none housing: house lives independently: Yes marital status: single number of children: 3 current occupation: Disabled caffeine: Yes Review of Systems Review of Systems Review of systems:: pertinent systems reviewed and negative unless documented below Constitutional Constitutional: Denies chills and Denies fever(s) *Cardiovascular Cardiovascular: Denies chest pain, Reports dyspnea, Reports dyspnea on exertion and Reports irregular heart rhythm *Respiratory Respiratory: Reports cough, Reports dyspnea, Reports dyspnea on exertion, Denies hemoptysis, Denies pain with cough and Reports wheezing Allergic/Immunologic Allergic/Immunologic: Reports wheezing Meds Home Medications and Allergies Home Medications Medication Instructions Recorded Confirmed Type duloxetine 30 mg capsule,delayed 30 mg PO DAILY Depression 11/04/20 12/12/21 History release gabapentin 600 mg tablet 600 mg PO DAILY Pain 11/04/20 12/12/21 History levothyroxine 125 mcg tablet 125 mcg PO DAILY thyroid 11/04/20 12/12/21 History meclizine 25 mg tablet 25 mg PO BIDP PRN Dizziness 11/04/20 12/12/21 History albuterol sulfate 1.25 mg/3 mL 1.25 mg inhalation Q4HP PRN 01/09/21 12/12/21 History solution for nebulization Shortness Of
--- NOTE | 2022-02-28 16:36 | PC.NURSE ---
report called to Arpit STEVEN
--- NOTE | 2022-02-28 16:47 | PC.NURSE ---
patient arrived by wheelchair at 1640 from ED
[2022-02-28 18:56] LABS: Troponin I 0.02 ng/ml (0.00-0.034)
[2022-03-01] VITALS (13 sets, daily range): BP systolic 125–145; BP diastolic 65–94; PULSE 69–140; RESP 16–19; TEMP 36.5–37.1; O2SAT 90–96; BMI 20.7
--- NOTE | 2022-03-01 05:15 | PC.NURSE ---
PATIENT HAS BEEN MEDICATED FOR BACK PAIN TWICE THIS SHIFT. ONCE WITH MORPHINE FOR PAIN 08/17 AND RECENTLY AT 0430 WITH OXYCODONE 5 MG PO BY REQUEST. MILD EXPIRATORY WHEEZES AUSCULTATED BILAT LUNGS. A FLUTTER ON TELEMETRY. 02 IN USE AT 3LNC.
[2022-03-01 07:43] LABS: Basophils # 0.1 K/mm3 (0-0.2); Basophils % 0.7 % (0.1-2.0); Eosinophils # 0.1 K/mm3 (0.0-0.4); Eosinophils % 1.2 % (0.1-12.0); Hematocrit 44.4 % (37.0-47.0); Hemoglobin 15.2 g/dL (12.2-16.2); Lymphocytes # 1.2 K/mm3 (0.7-4.5); Lymphocytes % 11.4 % (10-50); Mean Corpuscular HGB Conc 34.2 g/dL (31.8-35.4); Mean Corpuscular Hemoglobin 34.8 pg (27.0-31.2); Mean Corpuscular Volume 101.8 fl (81-99); Mean Platelet Volume 9.5 fl (7.4-10.4); Monocytes # 0.2 K/mm3 (0.1-1.0); Monocytes % 1.7 % (1.7-9.3); Neutrophils # 8.7 K/mm3 (1.8-7.8); Platelet Count 419 K/mm3 (142-424); Red Blood Count 4.36 M/mm3 (4.20-5.40); Red Cell Distribution Width 13.5 % (11.5-17.5); White Blood Count 10.2 K/mm3 (4.8-10.8)
[2022-03-01 07:51] LABS: MANUAL DIFFERENTIAL MANUAL DIFFERENTIAL (MANUAL DIFF)
[2022-03-01 07:53] LABS: Alanine Aminotransferase 24 U/L (12-78); Albumin Level 4.4 g/dl (3.5-5.0); Albumin/Globulin Ratio 1.1 (1.1-1.8); Alkaline Phosphatase 111 U/L (38-126); Anion Gap 12.8 mEq/L (5-15); Aspartate Amino Transferase 30 U/L (14-36); Bilirubin,Total 0.8 mg/dl (0.2-1.3); Blood Urea Nitrogen 21 mg/dl (7-17); Calcium 9.1 mg/dl (8.4-10.2); Carbon Dioxide 32 mmol/L (22.0-30.0); Chloride 99 mmol/L (98-107); Creatinine Clearance Estimated 107 mL/min (50-200); Estimated Glomerular Filt Rate 102 ml/min (>60); GFR (African American) 124 ML/MIN (>60); Glucose 163 mg/dl (74-100); Magnesium 2.1 mg/dl (1.6-2.3); Phosphorous 4.3 mg/dl (2.5-4.5); Potassium 3.8 mmoL/L (3.5-5.1); Sodium 140 mmol/L (136-145); Total Protein,Serum 8.4 g/dl (6.3-8.2)
[2022-03-01 08:04] LABS: NT Pro Brain Natriuretic Pep. 3430 pg/mL (0-125)
[2022-03-01 08:13] LABS: Procalcitonin 0.092 ng/mL (0.0-2.0)
[2022-03-01 08:45] LABS: Vitamin B12 526 pg/mL (239-931)
[2022-03-01 10:10] LABS: Lymphocytes % 11 % (10-50); Neutrophils % 89 % (42-76); Total Cells Counted 100
[2022-03-01 10:11] LABS: Macrocytosis 1+; Platelet Estimate Normal
--- NOTE | 2022-03-01 10:30 | EXP.PN ---
Subjective *Date: 03/01/22 *Time: 10:30 Interval history: Date of service March 01, 2022 The patient reports no acute events overnight. She reports that she has improved shortness of air. Nursing staff report that she remains afebrile with stable vital signs and she is back to her usual home oxygen requirement of 3 L via nasal cannula. Her heart rates have improved and her blood pressures continue to be stable. Her morning ECG identifies atrial flutter with controlled rate. Her morning labs have been reviewed and identify an improved leukocytosis with a stable hemoglobin and platelet count. Her electrolytes are normal and her creatinine is 0.6. Her morning magnesium is improved to 2.1. Her morning BMP identifies a downward trend. Her B12 level was normal and her procalcitonin is negative. Cardiology is due to see the patient. Exam Data for Last 24 hours Vital signs and Labs for Last 24 Hours: Temp Pulse Resp BP Pulse Ox 97.7 F 71 16 138/93 H 93 L 03/01/22 07:27 03/01/22 07:30 03/01/22 07:30 03/01/22 07:27 03/01/22 07:27 Laboratory Results - last 24 hr 02/28/22 12:24: WBC 15.2 H, RBC 4.43, Hgb 15.1, Hct 45.1, MCV 101.9 H, MCH 34.1 H, MCHC 33.4, RDW 13.8, Plt Count 382, MPV 8.8, Neut % (Auto) 81.9 H, Lymph % (Auto) 10.1, [place] % (Auto) 5.6, Eos % (Auto) 1.8, Baso % (Auto) 0.6, Neut # (Auto) 12.5 H, Lymph # (Auto) 1.5, [place] # (Auto) 0.9, Eos # (Auto) 0.3, Baso # (Auto) 0.1, Total Counted 100, Neutrophils % (Manual) 82 H, Lymphocytes % (Manual) 12, Monocytes % (Manual) 5, Eosinophils % (Manual) 1, Platelet Estimate Normal, Macrocytosis 1+ 02/28/22 12:24: Sodium 140, Potassium 4.1, Chloride 103, Carbon Dioxide 32 H, Anion Gap 9.1, BUN 13, Creatinine 0.50 L, Estimated Creat Clear 124, Estimated GFR 126, Est GFR ( Amer) 153, Glucose 88, Calcium 9.1, Total Bilirubin 1.1, AST 42 H, ALT 30, Alkaline Phosphatase 133 H, Troponin I < 0.01, NT-Pro-B Natriuret Pep 4490 H, Total Protein 8.3 H, Albumin 4.5, Globulin 3.8 H, Albumin/Globulin Ratio 1.2 02/28/22 12:24: PT 11.2, INR 1.04 02/28/22 12:24: Lactate 1.5 02/28/22 12:24: SARS-CoV-2 (PCR) Not detected, Influenza A Untype (PCR) Not detected, Influenza Type B (PCR) Not detected 02/28/22 15:30: Troponin I 0.02 02/28/22 18:30: Troponin I 0.02 03/01/22 07:13: WBC 10.2 D, RBC 4.36, Hgb 15.2, Hct 44.4, MCV 101.8 H, MCH 34.8 H, MCHC 34.2, RDW 13.5, Plt Count 419, MPV 9.5, Neut % (Auto) 85.0 H, Lymph % (Auto) 11.4, [place] % (Auto) 1.7, Eos % (Auto) 1.2, Baso % (Auto) 0.7, Neut # (Auto) 8.7 H, Lymph # (Auto) 1.2, [place] # (Auto) 0.2, Eos # (Auto) 0.1, Baso # (Auto) 0.1, Total Counted 100, Neutrophils % (Manual) 89 H, Lymphocytes % (Manual) 11, Platelet Estimate Normal, Macrocytosis 1+ 03/01/22 07:13: Sodium 140, Potassium 3.8, Chloride 99, Carbon Dioxide 32 H, Anion Gap 12.8, BUN 21 H D, Creatinine 0.60, Estimated Creat Clear 107, Estimated GFR 102, Est GFR ( Amer) 124, Glucose 163 H D, Calcium 9.1, Phosphorus 4.3, Magnesium 2.1, Total Bilirubin 0.8, AST 30 D, ALT 24, Alkaline Phosphatase 111, NT-Pro-B Natriuret Pep 3430 H, Total Protein 8.4 H, Albumin 4.4, Globulin 4.0 H, Albumin/Globulin Ratio 1.1, Vitamin B12 526, Procalcitonin 0.092 I & O for Last 24 hours: Intake & Output 02/26/22 02/27/22 02/28/22 03/01/22 23:59 23:59 23:59 23:59 Intake Total 360 / 360 480 / 480 Output Total 0 / 0 Balance 360 / 360 480 / 480 Weight 66.224 kg 67.132 kg Constitutional Constitutional: no acute distress, chronically ill appearing and cooperative *Routine HEENT Exam Head: Present normocephalic Eye: Present EOMI and PERRL ENT: Present mucous membranes moist *Routine Neck Exam Neck: Present supple; Absent lymphadenopathy *Routine Respiratory Exam Respiratory: Present rhonchi, diminished air movement, normal respiratory effort and symmetric chest movement *Routine Cardiovascular Exam Cardiovascular: Present irregular rhythm; Absent murmur *Routine Abdominal Exam Abdominal: Present soft
--- NOTE | 2022-03-01 17:13 | PC.NURSE ---
pt on 3l nc, taking it on and off t/o shift when ambulating/ toileting. pt has been in a flutter with HR increasing 130s-140s with activity. pts HR 70s at rest. rhonchi heard with little air movement in mark lungs. no edema noted on extremities. pt has c/o back pain x2 treated per mar with relief. pt has no questions or concerns at this time.
--- NOTE | 2022-03-01 19:10 | PC.NURSE ---
DURING ROUNDS PT WAS FEELING VERY ANXIOUS REGARDING HOSPITALIZATION. SHE VOICED FRUSTRATIONS ABOUT HER PLAN OF CARE INCLUDING FLUID RESTRICTIONS AND DIETARY RESTRICTIONS. SHE WAS VISIBLY UPSET AND TEARY EYED. THIS RN EXPLAINED REASONING FOR FLUID RESTRICTIONS AND DIETARY MODIFICATIONS. THIS RN ATTEMPTED TO COMFORT PT AND SHE WAS INFORMED THAT I WOULD MAKE THE HOSPITALIST AWARE OF THE SITUATION. THIS RN SPOKE WITH DR MERAZ AT LENGTH REGARDING PT FEELING ANXIOUS AND FRUSTRATED.
--- NOTE | 2022-03-01 23:14 | ECG_ITS ---
APPROVED REPORT Exam: Resting ECG HR:72 bpm ECG Measurements Heart Rate 72 AXES QRSd 126 QRS 51 QT 434 T 65 QTc 458 Conclusion ATRIAL FLUTTER/TACHYCARDIA INFERIOR MYOCARDIAL INFARCTION , OF INDETERMINATE AGE [40+ ms Q WAVE AND/OR ST/T ABNORMALITY IN II/aVF] MODERATE T-WAVE ABNORMALITY, CONSIDER ANTEROLATERAL ISCHEMIA [-0.1+ mV T-WAVE IN V3-V6] ABNORMAL ECG UNCONFIRMED REPORT Electronically signed by : Favian Willard MD 03/02/2022 20:16:46
[2022-03-02] VITALS (21 sets, daily range): BP systolic 110–146; BP diastolic 70–99; PULSE 74–114; RESP 16–20; TEMP 36.3–37.1; O2SAT 90–98; BMI 21.2; BMI 20.9
--- NOTE | 2022-03-02 00:05 | PC.NURSE ---
[facility] [place] notified this RN pt was sustaining 140 HR with possible heart rhythm change Telemetry read as BBB 2300 Pt sitting up in bed with daughter at bedside at this time. EKG performed and Kay Lopez notified. PT converted back to A flutter before EKG was able to be completed. Administered 2300 25mg Metoprolol HR has been 90-110 in A flutter.
--- NOTE | 2022-03-02 05:19 | PC.NURSE ---
Pt has c/o generalized/back pain 2x t/o shift. PRN pain medication administered. Pt states little relief with PO oxycodone but states adequate relief with IV Morphine. Pt has remained in A flutter and HR has been 90-110 since doing EKG at 2315 last night. Pt has slept well t/o shift. Call light within reach.
--- NOTE | 2022-03-02 06:59 | EXP.PN ---
Subjective *Date: 03/02/22 *Time: 07:25 Interval history: Date of service March 02, 2022 The patient reports no chest pain or acute dyspnea. Nursing staff report that she threatened to leave AMA last evening. She remains afebrile with intermittently elevated heart rates with emotional disposition related to her home life and stress. She plans to visit with a psychiatrist on discharge. She is saturating appropriately on her usual home oxygen requirement. Cardiology is due to see the patient. Exam Data for Last 24 hours Vital signs and Labs for Last 24 Hours: Temp Pulse Resp BP Pulse Ox FiO2 98.2 F 88 16 131/82 90 L 32 03/02/22 03:58 03/02/22 06:18 03/02/22 03:58 03/02/22 03:58 03/02/22 06:18 03/01/22 20:11 Laboratory Results - last 24 hr 03/01/22 07:13: WBC 10.2 D, RBC 4.36, Hgb 15.2, Hct 44.4, MCV 101.8 H, MCH 34.8 H, MCHC 34.2, RDW 13.5, Plt Count 419, MPV 9.5, Neut % (Auto) 85.0 H, Lymph % (Auto) 11.4, [place] % (Auto) 1.7, Eos % (Auto) 1.2, Baso % (Auto) 0.7, Neut # (Auto) 8.7 H, Lymph # (Auto) 1.2, [place] # (Auto) 0.2, Eos # (Auto) 0.1, Baso # (Auto) 0.1, Total Counted 100, Neutrophils % (Manual) 89 H, Lymphocytes % (Manual) 11, Platelet Estimate Normal, Macrocytosis 1+ 03/01/22 07:13: Sodium 140, Potassium 3.8, Chloride 99, Carbon Dioxide 32 H, Anion Gap 12.8, BUN 21 H D, Creatinine 0.60, Estimated Creat Clear 107, Estimated GFR 102, Est GFR ( Amer) 124, Glucose 163 H D, Calcium 9.1, Phosphorus 4.3, Magnesium 2.1, Total Bilirubin 0.8, AST 30 D, ALT 24, Alkaline Phosphatase 111, NT-Pro-B Natriuret Pep 3430 H, Total Protein 8.4 H, Albumin 4.4, Globulin 4.0 H, Albumin/Globulin Ratio 1.1, Vitamin B12 526, Procalcitonin 0.092 I & O for Last 24 hours: Intake & Output 02/27/22 02/28/22 03/01/22 03/02/22 23:59 23:59 23:59 23:59 Intake Total 360 / 360 1438 / 1438 220 / 220 Output Total 2 / 2 425 / 425 Balance 360 / 360 1436 / 1436 -205 / -205 Weight 66.224 kg 67.132 kg 68.629 kg Microbiology Reports for the Last 24 Hours: Microbiology 03/01/22 07:30 Sputum - Expectorated Sputum Gram Stain - Final Constitutional Constitutional: no acute distress, chronically ill appearing and cooperative *Routine HEENT Exam Head: Present normocephalic Eye: Present EOMI and PERRL ENT: Present mucous membranes moist *Routine Neck Exam Neck: Present supple; Absent lymphadenopathy *Routine Respiratory Exam Respiratory: Present rhonchi, diminished air movement, normal respiratory effort and symmetric chest movement *Routine Cardiovascular Exam Cardiovascular: Present irregular rhythm; Absent murmur *Routine Abdominal Exam Abdominal: Present soft and normoactive bowel sounds; Absent tenderness *Routine Extremities Exam Extremities: Present full ROM, pulses intact and normal capillary refill; Absent cyanosis, clubbing or edema *Routine Skin Exam Skin: Present warm; Absent rash *Routine Neurological Exam Neurological: Present alert, oriented X3, moving all extremities, normal tone, vision grossly intact, hearing grossly intact and normal speech; Absent sensory deficit or motor deficit Routine Psychiatric Exam Psychiatric: Present normal affect, normal thought process, cooperative, good insight and good judgment Assessment and Plan *Assessment and plan (1) Atrial flutter with rapid ventricular response: Status: Acute Category: Medical Code(s): I48.92 - Unspecified atrial flutter (2) Acute on chronic respiratory failure: Status: Acute Category: Medical Code(s): J96.20 - Acute and chronic respiratory failure, unspecified whether with hypoxia or hypercapnia (3) (HFpEF) heart failure with preserved ejection fraction: Status: Acute Qualifiers: Heart failure chronicity: chronic Qualified Code(s): I50.32 - Chronic diastolic (congestive) heart failure Category: Medical Code(s): I50.30 - Unspecified diastolic (congestive) heart failure (4) Coron
--- NOTE | 2022-03-02 10:14 | EXP.CARD.CON ---
History of Present Illness History of Present Illness Consult date: 03/02/22 Requesting physician: Hola Lunsford Chief complaint: soa and palpitations Additional Medical History:: Significant past medical history: HFrEF-recovered COPD- requires 3L nasal cannula AFIB Tobacco dependence Pulmonary hypertension Hepatitis C Chronic opioid therapy Echo from 01/14/2022: LVEF 50 to 60% Left heart cath 01/2021: IMPRESSION Normal coronary arteries Cardiomyopathy with mildly elevated LVEDP Successful cardioversion to regular rhythm PLAN 1. Patient requires full dose Lovenox as well as starting Xarelto 20 mg daily for atrial fibrillation 2. Continue amiodarone drip and then loaded orally 3. Standard therapy for cardiomyopathy including Entresto and carvedilol 4. Patient has had large diuresis within the last couple of hours and is in more stable condition.? Judicious use of diuretics 5. Consider LifeVest prior to discharge History of present illness: 61 year old white female presented to ER on 02/28/2022 with complaint of worsening soa and heart racing for the past 48 hours. Patient reports usually requires 3 L NC and was usuing 6 L NC. Patient has known hx of afib and is on xarelto at home. Patient underwent successful cardioversion 12/2021 restoring patient back to NSR. Patient was noted to be in flutter on 01/14/2022 during ER visit. Upon presentation to ER EKG showed afib with rvr at a rate of 149. Significant labs as follow: WBC 15.2, creatinine 0.50, and BNP 4490. Chest xray was negative for acute findings. Patient was started on metoprolol 25mg Q 6 hours and as admitted for cardiology evaluation. This morning patient remains a flutter with a rate in the 90s resting. Reports shortness of air is improving. Denies lower extremity edema or orthopnea. [facility] Disclaimer: The information contained in this section may have been updated after the patient was seen, as this information can be updated by other users. Medical History (Updated 03/02/22 @ 10:48 by Regina Castro APRN) (HFpEF) heart failure with preserved ejection fraction Atrial fibrillation/flutter Chronic, continuous use of opioids COPD (chronic obstructive pulmonary disease) Coronary artery disease Hepatitis C Hyperlipidemia Hypertension Hypothyroidism Pulmonary hypertension Right rotator cuff tear Tobacco dependence Surgical History H/O splenectomy History of cardioversion History of cholecystectomy History of hysterectomy History of left heart catheterization History of mandibular surgery History of surgery on right wrist S/P rotator cuff repair Family History Mother Stroke Father Coronary artery disease Social History Smoking Status: Current every day smoker tobacco type: cigarettes packs per day: 1 years smoked: 40 second hand exposure: Yes Tobacco counseling given: provider counseling alcohol intake: never substance use type: denies use current occupational status: unemployed and disabled Travel in the last 8 weeks: Inside the [place] household members: none housing: house lives independently: Yes marital status: single number of children: 3 current occupation: Disabled caffeine: Yes Review of Systems Review of Systems Review of systems:: pertinent systems reviewed and negative unless documented below *Cardiovascular Cardiovascular: Denies chest pain and Reports dyspnea *Respiratory Respiratory: Reports dyspnea Exam Data for Last 24 hours Vital signs and Labs for Last 24 Hours: Temp Pulse Resp BP Pulse Ox FiO2 98.6 F 96 H 16 132/80 93 L 32 03/02/22 08:00 03/02/22 08:00 03/02/22 08:00 03/02/22 08:00 03/02/22 08:00 03/01/22 20:11 I & O for Last 24 hours: Intake & Output 02/27/22 02/28/22 03/01/22 03/02/22 23:59 23:59 23:59 23:
--- NOTE | 2022-03-02 11:50 | IR_ITS ---
APPROVED REPORT Patient Location: Inpatient [employer] Workers: RYAN Marin RT (R) PROCEDURES Right internal jugular vein access Right heart catheterization INDICATION Abnormal CAT scan, Suggestion of pulmonary hypertension Informed consent was obtained prior to the procedure. COMPLICATIONS NONE Estimated Blood Loss: LESS THAN 10 ML TECHNIQUE One percent lidocaine was used to anesthetize the right anterior aspect of the neck. A general service officer needle was used to identify the right internal jugular vein. Following this a larger cannulation needle was used to cannulate the right internal jugular vein and a wire was passed into the vein. Prior to the 7 Vietnamese sheath being inserted the wire was confirmed under fluoroscopic guidance to be in the inferior vena cava. A 7 Vietnamese sheath was introduced and a Opheim-Chika catheter was floated using hemodynamic waveforms in the pulmonary artery, right ventricle , and right atrium. Saturations were obtained in the pulmonary artery and the right atrium. At the end of the procedure the patient was transferred to the postop holding area in stable condition for sheath removal. ANGIOGRAPHIC RESULTS Right atrial pressure 3 mmHg Pulmonary artery pressure 25/15 mmHg Pulmonary occlusion pressure 12 mmHg Right atrial saturation 71% Pulmonary saturation 74% Aortic saturation 100% Hemoglobin 15.2 Cardiac output 4.4 L/min per Trent Cardiac index 2.3 IMPRESSION Mild pulmonary hypertension PLAN 1. Medical management Electronically signed by : Brad Toscano MD 03/02/2022 13:27:01
[2022-03-02 13:44] LABS: CATHL Arterial O2 SAT 74.2 % (90-100); CATHL Venous O2 SAT 71.8 % (75-80)
--- NOTE | 2022-03-02 13:53 | CA_ITS ---
APPROVED REPORT EXAM: Comprehensive 2D, Doppler, and color-flow Echocardiogram Engineering Programmer: Ashia Hernández CRT Ht: 5 ft 11 in Wt: 143lbs BSA: 1.83 BP: 138/93 mmHg Indications: COPD, ef 50-60% 01-14-22, pt had ef 25% 01/09/21 wore lifevest 2D Dimensions LVOT 1.93 cm (M/F) 1.5-2.5 M-Mode Dimensions RVDd 3.93 cm (0.9-2.6) LA Diam 3.43 cm (1.9-4.0) LVDd 4.98 cm (3.5-5.7) Ao Diam 3.51 cm (2.0-3.7) LVDs 3.25 cm (3.5-5.7) IVSd 1.41 cm (0.6-1.1) PWd 0.54 cm (0.6-1.1) EF (Teich) 63.70% FS 34.70% EDV (Teich) 117.10 mL ESV (Teich) 42.50 mL Conclusion 1. Limited echocardiogram was performed to evaluate left ventricular systolic function. 2. Technically difficult study because of the patient factors and poor acoustic windows, estimated ejection fraction approximately 50% with no regional wall motion abnormality. 3. No significant pericardial effusion noted. Electronically signed by : Don Mtz MD 03/03/2022 06:13:42
--- NOTE | 2022-03-02 16:39 | PC.NURSE ---
pt post right heart cath, R IJ cath site with dressing in place, C/D/I, has complained of back 2 x this shift and was treated per MAR, remains on room air, ambulating to BR
[2022-03-03] VITALS (7 sets, daily range): BP systolic 128–142; BP diastolic 85–92; PULSE 58–130; RESP 19–20; TEMP 36.8–36.9; O2SAT 71–99; BMI 21.3
--- NOTE | 2022-03-03 02:16 | PC.NURSE ---
Pt has been A/O x 4, resp have been clear this morning but diminished. 02 has been in the 90's on Room air. Pt wearing 2L 02 while sleeping. No s/sx of bleeding at IJ site, dressing c/d/I. Pt has request pain medications 2 times this shift for back pain. Pt is resting with eyes closed at this time, no further pain reported. Pt educated on medications and Plan of care, bed locked in low position, side rails up x 2, call light in reach.
[2022-03-03 07:18] LABS: Anion Gap 12.4 mEq/L (5-15); Blood Urea Nitrogen 38 mg/dl (7-17); Calcium 8.8 mg/dl (8.4-10.2); Carbon Dioxide 29 mmol/L (22.0-30.0); Chloride 102 mmol/L (98-107); Creatinine Clearance Estimated 74 mL/min (50-200); Estimated Glomerular Filt Rate 64 ml/min (>60); GFR (African American) 78 ML/MIN (>60); Glucose 106 mg/dl (74-100); Potassium 4.4 mmoL/L (3.5-5.1); Sodium 139 mmol/L (136-145)
[2022-03-03 07:27] LABS: NT Pro Brain Natriuretic Pep. 951 pg/mL (0-125)
--- NOTE | 2022-03-03 08:40 | EXP.DC.SUM ---
General Admission date:: 02/28/22 Discharge date: 03/03/22 HPI HPI HPI: This is a 61-year-old female that presents to [facility] emergency department with concerns of shortness of air. Her past medical history significant for ongoing tobacco dependence, COPD, pulmonary hypertension, hepatitis C, heart failure with recovered ejection fraction, atrial fibrillation and chronic opioid therapy. She reports for the last week she has identified increasing shortness of air worse with activity and occurring at rest over the last 48 hours. She describes an increased croupy cough with no associated production. She denies associated hemoptysis. She reports no associated retrosternal chest pain, palpitations or syncopal episodes. She denies associated fever, chills, nausea, vomiting or diarrhea. She is concerned with bronchitis. In the ED she is evaluated and she is in atrial fibrillation with RVR with a heart rate of 149. Her respiratory rate is elevated and she is afebrile. She is requiring 6 L of oxygen to maintain appropriate oxygen saturations. Her laboratory studies identified mild leukocytosis with preserved hemoglobin and elevated MCV. Her BNP is 4490 and her troponins are negative. Her potassium and creatinine are normal. Her chest x-ray identifies no acute disease. Her studio operations manager is contacted out of the ED and recommends admission and beta-iftikhar therapy for her rapid ventricular response. Hospital Course Hospital Course Hospital Course: This is a 61-year-old female that presents to [facility] emergency department with concerns of shortness of air, cough and irregular heart rhythm.? In the ED she has been identified with atrial flutter with rapid ventricular response and acute exacerbation of her heart failure with recovered ejection fraction.? Symptoms improved during hospitalization with adjustment to rate controlling meds. Cardiology was consulted. Patient overall doing better. Meeting discharge criteria at this time. Problems addressed during hospitalization as follows: Atrial flutter with RVR Chadsvasc score 3 -On presentation, patient in A. flutter with RVR, has previously been cardioverted twice but been unable to maintain sinus rhythm. Repeat echo obtained during hospitalization (03/02) showing an EF of 50%, this is significant improvement from previous echo. Cardiology consulted. Metoprolol increased with good rate control in the 70s. Continued Eliquis 5 mg twice daily for anticoagulation. Plan to continue metoprolol 50 mg every 6 hours. We will have close follow-up with cardiology to make further adjustment and consideration for regimen changes. Patient overall feeling well. Heart rate controlled at goal. Acute on chronic hypoxic respiratory failure/pulmonary hypertension History of heart failure with recovered EF/mild pulmonary htn Essential hypertension Hyperlipidemia -Multifactorial in nature-tobacco use, pulmonary hypertension, aflutter, COPD. At home wears 2.5 L when necessary, mostly nightly or when active. Due to history of suspected pulmonary hypertension, right heart cath performed on 03/03. Right heart cath revealed mild pulmonary hypertension. We will treat with fluid management at this time. Continue Lasix and Aldactone. Plan to continue Lipitor 40 mg daily for cholesterol control. Continue Jardiance 10 mg daily for heart failure. Patient stable for discharge home. Plan to have close follow-up in a week with cardiology for further adjustments to medication regimen and close monitoring. Rechecked patient's room air sats on morning rounds, satting 96% on room air at rest. Continue O2 per home regimen at this time. Hypothyroidism Levothyroxine replacement therapy per home regimen Tobacco dependence Tobacco cessation education during admission. Nicotine replacement therapy during admission. Counseled on benefits of stopping smoking. Exam Data for Last 24 hours Vital
--- NOTE | 2022-03-03 09:00 | EXP.CARD.PN ---
Subjective Subjective Date: 03/03/22 Time: 08:00 Principal diagnosis: soa and a flutter Interval history: Patient status post right heart cath yesterday see report below. Patient reports feeling well this morning, denies shortness of air denies palpitations. Patient remains A. fib with rate of 76. A.m. labs reviewed Right heart cath 03/02/2022 ANGIOGRAPHIC RESULTS Right atrial pressure 3 mmHg Pulmonary artery pressure 25/15 mmHg Pulmonary occlusion pressure 12 mmHg Right atrial saturation 71% Pulmonary saturation 74% Aortic saturation 100% Hemoglobin 15.2 Cardiac output 4.4 L/min per Trent Cardiac index 2.3 IMPRESSION Mild pulmonary hypertension PLAN 1. Medical management Exam Data for Last 24 hours Vital signs and Labs for Last 24 Hours: Temp Pulse Resp BP Pulse Ox FiO2 97.8 F 110 H 20 128/85 71 L 32 03/02/22 23:33 03/03/22 08:00 03/03/22 03:33 03/03/22 03:33 03/03/22 06:15 03/01/22 20:11 Laboratory Results - last 24 hr 03/02/22 13:22: ABG O2 Sat (Measured) 74.2 L, POC VBG O2 Sat (Tayler) 71.8 L 03/03/22 05:51: Sodium 139, Potassium 4.4, Chloride 102, Carbon Dioxide 29, Anion Gap 12.4, BUN 38 H D, Creatinine 0.90 D, Estimated Creat Clear 74, Estimated GFR 64, Est GFR ( Amer) 78 D, Glucose 106 H, Calcium 8.8, NT-Pro-B Natriuret Pep 951 H I & O for Last 24 hours: Intake & Output 02/28/22 03/01/22 03/02/22 03/03/22 23:59 23:59 23:59 23:59 Intake Total 580 / 580 1438 / 1438 1480 / 1480 Output Total 2125 / 2124 Balance 580 / 580 1436 / 1436 -645 / -645 -1999 Weight 146 lb 148 lb 149 lb 14.629 oz 152 lb 9 oz Microbiology Reports for the Last 24 Hours: Microbiology 02/28/22 12:24 Blood Blood Culture - Preliminary NO GROWTH AFTER 48 HOURS 02/28/22 12:24 Blood Blood Culture - Preliminary NO GROWTH AFTER 48 HOURS Constitutional Constitutional: no acute distress *Routine Respiratory Exam Respiratory: Present CTA bilaterally, able to speak in complete sentences and symmetric chest movement *Routine Cardiovascular Exam Comments: A. fib rate 70s *Routine Extremities Exam Extremities: Present full ROM and pulses intact; Absent edema Comments: [place] and warm Progress Note: A&P Assessment and plan (1) Atrial flutter with rapid ventricular response: Status: Acute (2) (HFpEF) heart failure with preserved ejection fraction: Status: Acute (3) Hypertension: Status: Chronic (4) Hyperlipidemia: Status: Chronic (5) Acute and chronic respiratory failure with hypoxia: Status: Acute Assessment and Plan Assessment and Plan for All Diagnoses:: Atrial flutter with RVR Chadsvasc score 3 -Patient has had 2 previous cardioversions but failed to maintain normal sinus rhythm -rate control will be goal. Anxiety must be well controlled to achieve. -Echo from 03/02/2022 shows an EF of 50%. -Continue eliquis 5mg BID -Increase metoprolol to 50mg Q6 hours. 03/03/2022-rate control achieved remains A. fib rate in the 70s Acute on chronic hypoxic respiratory failure/pulmonary hypertension -Multifactorial in nature-tobacco use, pulmonary hypertension, aflutter, COPD -Chest CTA from 01/2022 shows the right main pulmonary trunk measures 2.8 cm suggesting pulmonary hypertension.? Also noted-contrast reflux into the suprahepatic veins can be seen in the context of right cardiac failure. -RHC today. Discussed risks of procedure with patient, she verbalized understanding and wishes to move forward with procedure. 03/03/2022: Symptoms improving, right heart cath revealed mild pulmonary hypertension. History of heart failure with recovered EF/mild pulmonary htn -Continue BB, arni, lasix, jardiance 03/03/2022-Echo from yesterday shows an EF of 50. RHC yesterday shows mild pulmonary htn. Hypertension -well controlled. continue meds listed above Hyperlipidemia -statin CV summary
--- NOTE | 2022-03-03 10:31 | PC.NURSE ---
room air saturation 94%
--- NOTE | 2022-03-03 10:52 | EXP.PHA.PN ---
Subjective *Date: 03/03/22 *Time: 10:52 Medical Exam Vital signs and Labs for Last 24 Hours: Vital Signs Temp Pulse Pulse Resp BP Pulse Ox 03/03/22 08:00 98.5 F 106 H 20 142/92 H 94 L 03/03/22 08:00 110 H 03/03/22 06:15 76 03/03/22 06:15 77 03/03/22 06:15 71 L 03/03/22 04:30 80 03/03/22 03:33 75 20 128/85 99 03/03/22 00:00 130 H 03/02/22 23:33 97.8 F 91 H 18 127/92 H 96 03/02/22 20:00 110 H 03/02/22 20:30 97.7 F 79 20 114/75 93 L 03/02/22 19:30 98.1 F 80 18 116/70 94 L 03/02/22 18:30 98 H 20 112/73 94 L 03/02/22 18:13 98 H 03/02/22 18:13 98 H 03/02/22 17:30 98.5 F 100 H 20 130/83 98 03/02/22 16:00 100 H 03/02/22 16:30 103 H 20 113/81 91 L 03/02/22 16:00 98.7 F 95 H 18 135/94 H 98 03/02/22 15:30 97 H 18 110/82 95 03/02/22 15:00 95 H 18 136/90 95 03/02/22 14:30 82 20 117/94 H 94 L 03/02/22 14:15 97.6 F 74 18 116/90 93 L 03/02/22 14:00 97.6 F 79 18 146/96 H 95 03/02/22 13:45 97.4 F L 97 H 18 127/99 H 96 03/02/22 12:00 110 H 03/02/22 12:00 98.4 F 114 H 18 124/97 H 93 L Intake and Output 03/02/22 03/03/22 03/03/22 23:59 07:59 15:59 Intake Total 780 / 1480 480 / 480 Output Total 200 / 2125 1999 / 1999 Balance 580 / -645 -2000 / -1520 480 / -1520 Intake: Intake, Oral Amount 780 / 1480 480 / 480 Output: Output, Urine Amount 2124 Other: Weight 69.201 kg Patient Weight 03/03/22 23:59 Weight 69.201 kg Laboratory Results - last 24 hr 03/02/22 13:22: ABG O2 Sat (Measured) 74.2 L, POC VBG O2 Sat (Tayler) 71.8 L 03/03/22 05:51: Sodium 139, Potassium 4.4, Chloride 102, Carbon Dioxide 29, Anion Gap 12.4, BUN 38 H D, Creatinine 0.90 D, Estimated Creat Clear 74, Estimated GFR 64, Est GFR ( Amer) 78 D, Glucose 106 H, Calcium 8.8, NT-Pro-B Natriuret Pep 951 H I & O for Labs for Last 24 Hours: Intake & Output 02/28/22 03/01/22 03/02/22 03/03/22 23:59 23:59 23:59 23:59 Intake Total 580 / 580 1438 / 1438 1480 / 1480 480 / 480 Output Total 2124 / 2124 Balance 580 / 580 1436 / 1436 -645 / -645 -1520 / -1520 Weight 66.224 kg 67.132 kg 68 kg 69.201 kg Microbiology Reports for the Last 24 Hours: Microbiology 03/01/22 07:30 Sputum - Expectorated Sputum Gram Stain - Final 03/01/22 07:30 Sputum - Expectorated Sputum Sputum Culture - Preliminary 02/28/22 12:24 Blood Blood Culture - Preliminary NO GROWTH AFTER 48 HOURS 02/28/22 12:24 Blood Blood Culture - Preliminary NO GROWTH AFTER 48 HOURS The patient's infection will respond to the chosen ABx?: Yes Is the patient receiving the right drug, dose, and route?: Yes Could a more targeted ABx be ordered?: No (BLD CX -X2, SPUTUM MIXED.)
--- NOTE | 2022-03-03 13:10 | HMH.PHAINT1 ---
Pharmacy Intervention Comments: DISCHARGE MEDICATION COUNSELING PROVIDED. DISCUSSED THE FOLLOWING CHANGES: -STOP BISOPROLOL, XARELTO, AND DICLOFENAC TABS (PATIENT ASKED WHY, I ADVISED DUE TO ASPIRIN AND ELIQUIS AND INCREASED BLEED RISK, PATIENT INSIST I DISCUSS WITH DR RIVERO. I SPOKE WITH DR RIVERO AND HE SAID IT WAS DUE TO DOAC/ASPIRIN CONTRAINDICATED WITH NSAIDS). -START THE FOLLOWING: -ELIQUIS (BLOOD THINNER, TWICE DAILY, BLEED/BRUISE RISK, BLEED LOCATION/APPEARANCE, BUMP HEAD = GO TO ER) -ASPIRIN (ANTIPLATELET, DAILY, BLEED/BRUISE RISK, BLEED LOCATION/APPEARANCE, BUMP HEAD = GO TO ER) -DOXYCYCLINE (ANTIBIOTIC, TWICE DAILY, TAKE WITH FOOD, N/V/D POSSIBLE) -JARDIANCE (FOR CHF/BLOOD SUGAR, DAILY, LOW BLOOD SUGAR, INCREASED RISK OF URINARY FUNGAL INFECTION, N/V/D) -IRBESARTAN (FOR BLOOD PRESSURE, DAILY, ELEVATED POTASSIUM, DIZZINESS, LIGHTHEADEDNESS, LOW BP POSSIBLE) -METOPROLOL (FOR BP/HEART RATE, EVERY 6 HOURS, DIZZINESS, LIGHTHEADEDNESS, LOW BP, SLOWED HEART RATE) -PREDNISONE (PATIENT TAKEN BEFORE, IS FAMILIAR, NO QUESTIONS) PATIENT VERBALIZED NO ADDITIONAL QUESTIONS AT THIS TIME.
--- NOTE | 2022-03-04 14:04 | CARE MANAGER ---
Contacted patient related to hospital stay. She states she is back to not feeling well. She has not been doing her nebulizers every 4 hours. She states she is alone and tries not to move around much. She has Medicaid so unfortunately cannot receive home health services. She does not feel able to drive at this time. her daughter does check on her and help her at times. Suggested she start doing her nebulizers every 4 hours and to not smoke. Also, encouraged her to make an appointment with PCP. TENISHA Vaz
--- NOTE | 2022-03-06 13:47 | EXP.EVENT.NO ---
Sputum culture returned positive for Enterobacter. Contacted patient. Will initiate on 1 week of Levaquin. Patient informed and medication sent to [facility].
== END 2022-03-03 13:37 | disposition home or self-care (01) ==
LOC: ER 14:20 → 2ND 15:23
PROVIDERS: Internal Medicine; Admitting Provider Family Medicine; Emergency Provider Family Medicine; PCP Nurse Practitioner; Visit Provider Internal Medicine Adolescent Medicine
DX: I50.32 Chronic diastolic (congestive) heart failure (principal); I27.20 Pulmonary hypertension, unspecified; F17.210 Nicotine dependence, cigarettes, uncomplicated; I48.91 Unspecified atrial fibrillation; I25.10 Atherosclerotic heart disease of native coronary artery without angina pectoris; J44.9 Chronic obstructive pulmonary disease, unspecified; E03.9 Hypothyroidism, unspecified; Z79.899 Other long term (current) drug therapy; Z79.891 Long term (current) use of opiate analgesic; I42.9 Cardiomyopathy, unspecified; J96.21 Acute and chronic respiratory failure with hypoxia; I11.0 Hypertensive heart disease with heart failure; Z20.822 Contact with and (suspected) exposure to COVID-19
CPT/HCPCS: 36415; 71045; 80048; 80053; 82607; 82810; 83605; 83735; 83880; 84100; 84145; 84484; 85007; 85025; 85610; 87040; 87070; 87077; 87186; 87205; 93005; 93308; 93451; 94640; 94760; 99152; 99291; C1894; C9803; G0378; J1644; U0003; U0005

== ENCOUNTER 2022-03-17 14:38 | Observation (INO) | payer MEDICAID, SELFPAY ==
[2022-03-17] VITALS (9 sets, daily range): BP systolic 101–134; BP diastolic 63–95; PULSE 67–151; RESP 18–20; TEMP 36.6–36.9; O2SAT 95–98; BMI 20.9
--- NOTE | 2022-03-17 14:43 | PC.NURSE ---
arrived by wheelchair from ER admissions
[2022-03-17 15:29] LABS: Basophils # 0.1 K/mm3 (0-0.2); Basophils % 1.4 % (0.1-2.0); Eosinophils # 0.1 K/mm3 (0.0-0.4); Eosinophils % 1.5 % (0.1-12.0); Hematocrit 46.6 % (37.0-47.0); Hemoglobin 15.1 g/dL (12.2-16.2); Lymphocytes # 1.8 K/mm3 (0.7-4.5); Lymphocytes % 19.6 % (10-50); Mean Corpuscular HGB Conc 32.5 g/dL (31.8-35.4); Mean Corpuscular Hemoglobin 33.2 pg (27.0-31.2); Mean Corpuscular Volume 102.4 fl (81-99); Mean Platelet Volume 9.3 fl (7.4-10.4); Monocytes # 0.6 K/mm3 (0.1-1.0); Monocytes % 6.9 % (1.7-9.3); Neutrophils # 6.6 K/mm3 (1.8-7.8); Neutrophils % 70.6 % (37.0-80.0); Platelet Count 296 K/mm3 (142-424); Red Blood Count 4.55 M/mm3 (4.20-5.40); Red Cell Distribution Width 13.9 % (11.5-17.5); White Blood Count 9.4 K/mm3 (4.8-10.8)
--- NOTE | 2022-03-17 15:36 | EXP.HP ---
History of Present Illness *Admission Date: 03/17/22 *Reason for visit:: heart flutter *History of present illness: This is a 61-year-old female that presents to [facility] cardiology office with palpitations and chest discomfort. She presented to cardiology office as an outpatient today because she has not been feeling well the past few days. She felt a little dizzy and uncomfortable to 3 days ago and so she stopped taking her new medications started during last admission out of concern that they were making her feel bad. On presentation to the cardiology clinic, EKG obtained showing a flutter with heart rate of 150. Stable on her chronic oxygen. Denies any nausea, vomiting, diarrhea. Does complain of some chest discomfort. No syncope. Her past medical history significant for ongoing tobacco dependence, COPD, pulmonary hypertension, hepatitis C, heart failure with EF 50%, atrial fibrillation and chronic opioid therapy.? She reports no syncopal episodes.? No increased cough. Cardiology consulted medicine for direct admission. Patient admitted for further management. After arriving to the floor, patient is stable on 2 L nasal cannula (her baseline). Heart rate remains elevated. Cardiology recommended both oral metoprolol and diltiazem. Blood pressure acceptable, no hemodynamic instability. Will trial oral regimen at this time. No indication for IV drips to slow heart rate. Initial labs ordered including CBC, CMP, troponin. Cardiology consulted [facility] Disclaimer: The information contained in this section may have been updated after the patient was seen, as this information can be updated by other users. Medical History (HFpEF) heart failure with preserved ejection fraction Atrial fibrillation/flutter Chronic, continuous use of opioids COPD (chronic obstructive pulmonary disease) Coronary artery disease Hepatitis C Hyperlipidemia Hypertension Hypothyroidism Pulmonary hypertension Right rotator cuff tear Tobacco dependence Surgical History H/O splenectomy History of cardioversion History of cholecystectomy History of hysterectomy History of left heart catheterization History of mandibular surgery History of surgery on right wrist S/P rotator cuff repair Family History Coronary artery disease Father Stroke Mother Social History Smoking Status: Current every day smoker tobacco type: cigarettes packs per day: 1 years smoked: 40 second hand exposure: Yes alcohol intake: never substance use type: denies use current occupational status: unemployed and disabled Travel in the last 8 weeks: Inside the [place] household members: none housing: house lives independently: Yes marital status: single number of children: 3 current occupation: Disabled caffeine: Yes Review of Systems Review of Systems Review of systems (narrative): 14 point review of systems performed, pertinent positives and negatives as per HPI Meds Home Medications and Allergies Home Medications Medication Instructions Recorded Confirmed Type duloxetine 30 mg capsule,delayed 30 mg PO DAILY Depression 11/04/20 03/17/22 History release gabapentin 600 mg tablet 600 mg PO DAILY Pain 11/04/20 03/17/22 History albuterol sulfate 1.25 mg/3 mL 1.25 mg inhalation Q4HP PRN 01/09/21 03/17/22 History solution for nebulization Shortness Of Breath famotidine 40 mg tablet 40 mg PO BID acid reflux 01/09/21 03/17/22 History albuterol sulfate 90 mcg/actuation 1 puff inhalation Q4HP PRN 01/10/21 03/17/22 History aerosol inhaler Shortness Of Breath amitriptyline 25 mg tablet 25 mg PO HS sleep 01/10/21 03/17/22 History budesonide-formoterol HFA 160 2 puffs inhalation BID Breathing 01/10/21 03/17/22 History mcg-4
[2022-03-17 15:41] LABS: Coronavirus 19, PCR Not Detected (NotDetected); Influenza A, PCR Not Detected (NotDetected); Influenza B, PCR Not Detected (NotDetected)
[2022-03-17 16:33] LABS: Chloride 107 mmol/L (98-107)
[2022-03-17 16:34] LABS: Potassium 4.3 mmoL/L (3.5-5.1); Sodium 139 mmol/L (136-145)
[2022-03-17 16:36] LABS: Alanine Aminotransferase 20 U/L (12-78); Alkaline Phosphatase 72 U/L (38-126); Anion Gap 8.3 mEq/L (5-15); Aspartate Amino Transferase 32 U/L (14-36); Bilirubin,Total 0.5 mg/dl (0.2-1.3); Blood Urea Nitrogen 24 mg/dl (7-17); Carbon Dioxide 28 mmol/L (22.0-30.0); Creatinine Clearance Estimated 109 mL/min (50-200); Estimated Glomerular Filt Rate 102 ml/min (>60); GFR (African American) 124 ML/MIN (>60)
[2022-03-17 16:37] LABS: Albumin Level 3.5 g/dl (3.5-5.0); Albumin/Globulin Ratio 1.2 (1.1-1.8); Globulin 2.9 g/dL (1.3-3.2); Glucose 143 mg/dl (74-100); Magnesium 1.7 mg/dl (1.6-2.3); Total Protein,Serum 6.4 g/dl (6.3-8.2)
[2022-03-17 17:15] LABS: Troponin I < 0.01 ng/ml (0.00-0.034)
[2022-03-18] VITALS (8 sets, daily range): BP systolic 91–108; BP diastolic 55–81; PULSE 43–69; RESP 17–20; TEMP 36.7–37.2; O2SAT 97–98; BMI 21.5
--- NOTE | 2022-03-18 04:50 | PC.NURSE ---
Pt had complained of chronic back pain and generalized chronic pain this shift. Pt medicated PRN per APR, plus one time order. Pt has had no other complaints. Denies cp/soa. Pt remains on 2L NC and tolerating well. O2 sats >95%. Wheezes noted. A flutter with controlled rate on telemetry. Pt ambulated to bathroom independently this shift. Call light within reach.
--- NOTE | 2022-03-18 05:17 | PC.NURSE ---
Was notified by stewardesses teacher of pts heart rate decreasing to 40's. Pt has no complaints at this time. BP 94/73. EKG obtained and seen by [facility] and Dr Toscano. Orders received to hold all metoprolol.
--- NOTE | 2022-03-18 06:44 | ECG_ITS ---
APPROVED REPORT Exam: Resting ECG HR:43 bpm ECG Measurements Heart Rate 43 AXES QRSd 117 QRS 65 QT 491 T 83 QTc 436 Conclusion ATRIAL FLUTTER/TACHYCARDIA WITH SLOW VENTRICULAR RESPONSE MODERATE INTRAVENTRICULAR CONDUCTION DELAY [110+ ms QRS DURATION] EARLY REPOLARIZATION [ST ELEVATION WITH NORMALLY INFLECTED T-WAVE] ABNORMAL RHYTHM ECG UNCONFIRMED REPORT Electronically signed by : Favian Willard MD 03/18/2022 21:26:20
[2022-03-18 07:07] LABS: Basophils # 0.1 K/mm3 (0-0.2); Chloride 107 mmol/L (98-107); Eosinophils # 0.2 K/mm3 (0.0-0.4); Eosinophils % 2.2 % (0.1-12.0); Hematocrit 44.6 % (37.0-47.0); Hemoglobin 13.9 g/dL (12.2-16.2); Lymphocytes # 2.6 K/mm3 (0.7-4.5); Lymphocytes % 39.7 % (10-50); Mean Corpuscular HGB Conc 31.1 g/dL (31.8-35.4); Mean Corpuscular Hemoglobin 32.2 pg (27.0-31.2); Mean Corpuscular Volume 103.7 fl (81-99); Monocytes # 0.5 K/mm3 (0.1-1.0); Neutrophils # 3.1 K/mm3 (1.8-7.8); Platelet Count 332 K/mm3 (142-424); Potassium 5.1 mmoL/L (3.5-5.1); Red Cell Distribution Width 13.9 % (11.5-17.5); Sodium 141 mmol/L (136-145); White Blood Count 6.5 K/mm3 (4.8-10.8)
[2022-03-18 07:09] LABS: Alanine Aminotransferase 120 U/L (12-78); Aspartate Amino Transferase 247 U/L (14-36); Blood Urea Nitrogen 18 mg/dl (7-17); Creatinine Clearance Estimated 84 mL/min (50-200); Estimated Glomerular Filt Rate 73 ml/min (>60); GFR (African American) 89 ML/MIN (>60)
[2022-03-18 07:10] LABS: Albumin Level 3.6 g/dl (3.5-5.0); Albumin/Globulin Ratio 1.2 (1.1-1.8); Alkaline Phosphatase 149 U/L (38-126); Anion Gap 7.1 mEq/L (5-15); Bilirubin,Total 0.6 mg/dl (0.2-1.3); Calcium 8.5 mg/dl (8.4-10.2); Carbon Dioxide 32 mmol/L (22.0-30.0); Glucose 91 mg/dl (74-100); Total Protein,Serum 6.6 g/dl (6.3-8.2)
--- NOTE | 2022-03-18 07:41 | PC.NURSE ---
Pt reports feeling light-headed, and funny feelings in her chest. BP 102/62, HR 43. EKG obtained. Dr jeff notified and has seen EKG. No new orders at this time.
--- NOTE | 2022-03-18 08:36 | HMH.PHAINT1 ---
Pharmacy Intervention Comments: Medication reconciliation completed using external fill history and medication list from PCP office
--- NOTE | 2022-03-18 11:17 | EXP.CARD.PN ---
Subjective Subjective Date: 03/18/22 Time: 10:00 Principal diagnosis: afib with rvr Interval history: This is a 61-year-old white female who presented to the cardiology office yesterday here at [facility] for palpitations and chest discomfort. The patient was found to be in atrial fibrillation with RVR. Her heart rate was around 150. The patient had stopped taking her antiarrhythmics and blood thinners for several days. The patient was given a dose of metoprolol and diltiazem yesterday evening and her heart rate went down to the 40s and she is sinus rhythm this morning. The patient remains in sinus rhythm with a heart rate around 48 to 55 bpm this morning. She is a little hypotensive as well with a systolic blood pressure in the 90s. She denies any chest pain or pressure. She denies any shortness of breath or edema. She denies any fever, chills, nausea, vomiting, diarrhea, PND orthopnea. Exam Data for Last 24 hours Vital signs and Labs for Last 24 Hours: Temp Pulse Resp BP Pulse Ox 98.1 F 51 L 18 91/64 L 97 03/18/22 11:14 03/18/22 11:14 03/18/22 11:14 03/18/22 11:14 03/18/22 11:14 Laboratory Results - last 24 hr 03/17/22 14:57: SARS-CoV-2 (PCR) Not detected, Influenza A Untype (PCR) Not detected, Influenza Type B (PCR) Not detected 03/17/22 15:04: WBC 9.4, RBC 4.55, Hgb 15.1, Hct 46.6, MCV 102.4 H, MCH 33.2 H, MCHC 32.5, RDW 13.9, Plt Count 296, MPV 9.3, Neut % (Auto) 70.6, Lymph % (Auto) 19.6, Dup[place] % (Auto) 6.9, Eos % (Auto) 1.5, Baso % (Auto) 1.4, Neut # (Auto) 6.6, Lymph # (Auto) 1.8, Dup[place] # (Auto) 0.6, Eos # (Auto) 0.1, Baso # (Auto) 0.1 03/17/22 16:10: Sodium 139, Potassium 4.3, Chloride 107, Carbon Dioxide 28, Anion Gap 8.3, BUN 24 H, Creatinine 0.60, Estimated Creat Clear 109, Estimated GFR 102, Est GFR ( Amer) 124, Glucose 143 H, Calcium 8.0 L, Magnesium 1.7, Total Bilirubin 0.5, AST 32, ALT 20, Alkaline Phosphatase 72, Troponin I < 0.01, Total Protein 6.4, Albumin 3.5, Globulin 2.9, Albumin/Globulin Ratio 1.2 03/18/22 06:30: WBC 6.5 D, RBC 4.30, Hgb 13.9, Hct 44.6, MCV 103.7 H, MCH 32.2 H, MCHC 31.1 L, RDW 13.9, Plt Count 332, MPV 8.0, Neut % (Auto) 48.0, Lymph % (Auto) 39.7, Dup[place] % (Auto) 8.0, Eos % (Auto) 2.2, Baso % (Auto) 2.0, Neut # (Auto) 3.1, Lymph # (Auto) 2.6, Dup[place] # (Auto) 0.5, Eos # (Auto) 0.2, Baso # (Auto) 0.1 03/18/22 06:30: Sodium 141, Potassium 5.1, Chloride 107, Carbon Dioxide 32 H, Anion Gap 7.1, BUN 18 H, Creatinine 0.80 D, Estimated Creat Clear 84, Estimated GFR 73, Est GFR ( Amer) 89 D, Glucose 91 D, Calcium 8.5, Total Bilirubin 0.6, AST 247 H D, ALT 120 H D, Alkaline Phosphatase 149 H, Total Protein 6.6, Albumin 3.6, Globulin 3.0, Albumin/Globulin Ratio 1.2 I & O for Last 24 hours: Intake & Output 03/15/22 03/16/22 03/17/22 03/18/22 23:59 23:59 23:59 23:59 Intake Total 360 / 360 360 / 360 Output Total 0 / 0 0 / 0 Balance 360 / 360 360 / 360 Weight 150 lb 2 oz 154 lb 1.6 oz Narrative: Telemetry strip shows sinus rhythm with a rate of 56 bpm. Constitutional Constitutional: no acute distress and average body habitus *Routine HEENT Exam Head: Present normocephalic and atraumatic ENT: Present mucous membranes moist *Routine Neck Exam Neck: Present supple, full ROM and normal carotid upstroke; Absent JVD, carotid bruit or lymphadenopathy *Routine Respiratory Exam Respiratory: Present CTA bilaterally, normal respiratory effort, able to speak in complete sentences and symmetric chest movement *Routine Cardiovascular Exam Cardiovascular: Present RRR, Normal S1, Normal S2 and bradycardia; Absent murmur or gallop *Routine Abdominal Exam Abdominal: Present soft and normoactive bowel sounds; Absent tenderness, distended or organomegaly *Routine Extremities Exam Extremities: Present full ROM, pulses intact and normal capillary refill; Absent cyanosis, clubbing or edema *Routine Skin Exam Skin: Present intact and warm; Absent erythema *Routine Neurological Exam
--- NOTE | 2022-03-18 11:40 | HMH.PHAINT1 ---
Pharmacy Intervention Comments: Discussed medication list with patient prior to discharge. Patient verbalized understanding and had no questions at this time
--- NOTE | 2022-03-18 14:00 | EXP.DC.SUM ---
General Admission date:: 03/17/22 Discharge date: 03/18/22 HPI HPI HPI: This is a 61-year-old female that presents to [facility] cardiology office with palpitations and chest discomfort. She presented to cardiology office as an outpatient today because she has not been feeling well the past few days. She felt a little dizzy and uncomfortable to 3 days ago and so she stopped taking her new medications started during last admission out of concern that they were making her feel bad. On presentation to the cardiology clinic, EKG obtained showing a flutter with heart rate of 150. Stable on her chronic oxygen. Denies any nausea, vomiting, diarrhea. Does complain of some chest discomfort. No syncope. Her past medical history significant for ongoing tobacco dependence, COPD, pulmonary hypertension, hepatitis C, heart failure with EF 50%, atrial fibrillation and chronic opioid therapy.? She reports no syncopal episodes.? No increased cough. Cardiology consulted medicine for direct admission. Patient admitted for further management. After arriving to the floor, patient is stable on 2 L nasal cannula (her baseline). Heart rate remains elevated. Cardiology recommended both oral metoprolol and diltiazem. Blood pressure acceptable, no hemodynamic instability. Will trial oral regimen at this time. No indication for IV drips to slow heart rate. Initial labs ordered including CBC, CMP, troponin. Cardiology consulted Hospital Course Hospital Course Hospital Course: This is a 61-year-old female that presents to [facility] cardiology clinic as an outpatient with concern of palpitations and chest discomfort.? Found to be in a flutter with RVR.? Cardiology consulted medicine for admission.? Determination made by medicine to admit for observation status to treat tachyarrhythmia.? Patient hemodynamically stable upon arriving to the floor.? Problems addressed as follows: Atrial flutter with RVR Chadsvasc score 3 -On presentation, patient in A. flutter with RVR.? EKG personally reviewed showing rate of 150, P waves consistent with atrial flutter. Cardiology consulted, Initiated on metoprolol 200 mg succinate p.o. once and diltiazem 240 mg extended release orally once. Converted to sinus rhythm. Had asymptomatic bradycardia after conversion with heart rate 40 - 50 BPM. Will resume her diltiazem on DC and hold metoprolol until follows closely with cardiology next week for re-evaluation. Continue to hold Irbesartan for HTN pending cards follow-up . Reviewed echo from last visit showing ejection fraction of 50% less than 2 weeks ago.? Continued Eliquis 5 mg twice daily for anticoagulation. Troponins negative during admission, no plan for cath at this time. chronic hypoxic respiratory failure/pulmonary hypertension History of heart failure with recovered EF/mild pulmonary htn Essential hypertension Hyperlipidemia -Multifactorial in nature: tobacco use, pulmonary hypertension, aflutter, COPD. On baseline oxygen 2.5 L, continued supplemental oxygen with goal saturation >90%. Reviewed catheter results from 03/03.? Right heart cath revealed mild pulmonary hypertension. Continue Lasix. Continue Lipitor 40 mg daily for cholesterol control. Continue Jardiance 10 mg daily for heart failure. Hypothyroidism: continued Levothyroxine 50 mcg daily Tobacco dependence: Tobacco cessation education during admission.? Nicotine replacement therapy during admission.? Counseled on benefits of stopping smoking. Cards DC meds: Aspirin 81 mg daily Lipitor 40 mg p.o. nightly diltiazem CD2 140 mg daily Eliquis 5 mg p.o. twice daily Lasix 20 mg p.o. daily as needed Pepcid 40 mg p.o. twice daily Jardiance 10 mg daily Protonix 40 mg daily. Exam Data for Last 24 hours Vital signs and Labs for Last 24 Hours: Temp Pulse Resp BP Pulse Ox 98.1 F 51 L 18 91/64 L 97 03/18/22 11:14 03/18/22 11:14 03/18/22 11:14 03/18/22 11:14 03/18/22 11:14
--- NOTE | 2022-03-19 14:23 | CARE MANAGER ---
Spoke with patient for post-discharge phone interview, no issues noted.
== END 2022-03-18 13:15 | disposition home or self-care (01) ==
PROVIDERS: Admitting Provider Internal Medicine Adolescent Medicine; PCP Nurse Practitioner; Visit Provider Internal Medicine Adolescent Medicine
DX: I48.91 Unspecified atrial fibrillation (principal); I50.32 Chronic diastolic (congestive) heart failure; E03.9 Hypothyroidism, unspecified; I25.10 Atherosclerotic heart disease of native coronary artery without angina pectoris; F17.210 Nicotine dependence, cigarettes, uncomplicated; E78.2 Mixed hyperlipidemia; J96.11 Chronic respiratory failure with hypoxia; I11.0 Hypertensive heart disease with heart failure; I27.20 Pulmonary hypertension, unspecified; J44.9 Chronic obstructive pulmonary disease, unspecified; Z79.899 Other long term (current) drug therapy; Z79.891 Long term (current) use of opiate analgesic
CPT/HCPCS: 36415; 80053; 83735; 84484; 85025; 93005; C9803; G0378; U0003; U0005

== ENCOUNTER 2022-06-03 12:35 | Day surgery (SDC) | payer MEDICAID, SELFPAY ==
--- NOTE | 2022-06-03 | CA_ITS ---
APPROVED REPORT EXAM: Comprehensive 2D, Doppler, and color-flow Echocardiogram Electric Blanket Packer: Elsie Stephens RT(R) Demographics Ht: 5 ft 11 in Wt: 158lbs BSA: 1.91 BP: 135/75 mmHg Procedure 1. Transesophageal echocardiogram 2. Synchronized electrical cardioversion Indications: 1. Atrial fibrillation/flutter 2. Tachycardia Additional History 61-year-old white female who presented with atrial fibrillation/flutter. She has had ongoing issues with this. She has been on and off of her Eliquis. Tachycardic. Secondary to this she was brought down for transesophageal echocardiogram with synchronized electrical cardioversion 2D After anesthesia was present patient was brought to the cardiac catheterization laboratory in the recovery area and prepped and draped for a transesophageal echocardiogram. Anterior posterior pads placed for synchronized electrical cardioversion. Throat was anesthetized with HurriCaine spray and then anesthesia sedated the patient Complications none 1. Normal left ventricular size and function with an estimated ejection fraction of 55 to 60% 2. Normal left atrial and right atrial size. Normal left atrial appendage. Normal Doppler pulsation in the left atrial appendage with normal movement and no evidence for thrombus. There was also no smoke noted in the left atrium 3. Normal right ventricular size and function 4. Normal wall motion with no wall motion abnormalities 5. Normal mitral valve, with trivial mitral insufficiency 6. Normal trileaflet aortic valve 7. Normal aortic root 8. Normal tricuspid valve, with no apparent tricuspid insufficiency Contrast was not performed for this examination. Patient had normal left atrium and right atrium. The appendage was normal. There was no smoke in the atrium. There was no evidence for atrial thrombus Doppler Interrogation Doppler interrogation of the atrial appendage was normal. After transesophageal echocardiogram was performed synchronized electrical cardioversion was done with 200 J. This was restored normal sinus rhythm with a heart rate of 60-70. Confirmed by telemetry as well as post EKG Conclusion 1. Normal left ventricular systolic function 2. Normal left atrial and right atrial size with normal left atrial appendage and no evidence for thrombus 3. Successful synchronized electrical cardioversion of atrial fibrillation/flutter to normal sinus rhythm with 200 J Plan: Patient will remain on anticoagulation. Patient is now in normal sinus rhythm. Left ventricular function is normal. Follow-up in cardiology clinic in 1 to 2 weeks Electronically signed by : Bharath Frederick MD 06/03/2022 15:07:04
[2022-06-03 12:43] VITALS: BMI 22.0
[2022-06-03 12:54] VITALS: BP 156/78; PULSE 72; RESP 14; TEMP 36.9; O2SAT 94
[2022-06-03 13:01] VITALS: PULSE 71
--- NOTE | 2022-06-03 14:21 | P.PN_ITS ---
[facility] Disclaimer: The information contained in this section may have been updated after the patient was seen, as this information can be updated by other users. Medical History (HFpEF) heart failure with preserved ejection fraction Atrial fibrillation/flutter Chronic, continuous use of opioids COPD (chronic obstructive pulmonary disease) Coronary artery disease Hepatitis C Hyperlipidemia Hypertension Hypothyroidism Pulmonary hypertension Right rotator cuff tear Sinus bradycardia Tobacco dependence Surgical History H/O splenectomy History of cardioversion History of cholecystectomy History of hysterectomy History of left heart catheterization History of mandibular surgery History of surgery on right wrist S/P rotator cuff repair Family History Mother Stroke Father Coronary artery disease Social History Smoking Status: Current every day smoker tobacco type: cigarettes packs per day: 1 years smoked: 40 second hand exposure: Yes alcohol intake: never substance use type: denies use current occupational status: unemployed and disabled Travel in the last 8 weeks: Inside the [place] household members: none housing: house lives independently: Yes marital status: single number of children: 3 current occupation: Disabled caffeine: Yes [facility] Anesthesia Checklist Patient Identification Patient Identification: Arm Band and Verbal (Name & ) Structural Data Admitted From: Home Planned Operative Procedure/s: ALLA/Cardioversion Consent for Planned Operative Procedure(s) Verified: Yes Verified Documents: Surgical Consent NPO Status Verified Time NPO: 00:00 Additional verifications Anesthesia Reactions: No Airway Assessment C-Spine Mobility Assessed: Yes TMJ Mobility Assessed: Yes Dentition: Good Dentition Neurological Assessment Level of Consciousness: Awake, Alert and Appropriate Anesthesia Plan Anesthesia Risk discussed: Yes ASA Class: II Anesthesia Type: MAC
[2022-06-03 14:39] VITALS: BP 100/69; PULSE 69; RESP 20; O2SAT 96
--- NOTE | 2022-06-03 14:40 | ECG_ITS ---
APPROVED REPORT Exam: Resting ECG HR:69 bpm ECG Measurements Heart Rate 69 AXES MI 167 P 69 QRSd 118 QRS 75 QT 427 T 107 QTc 446 Conclusion SINUS RHYTHM INCOMPLETE RIGHT BUNDLE BRANCH BLOCK [90+ ms QRS DURATION, TERMINAL R IN V1/V2, 40+ ms S IN I/aVL/V4/V5/V6] ANTERIOR MYOCARDIAL INFARCTION , PROBABLY RECENT [40+ ms Q WAVE AND/OR ST/T ABNORMALITY IN V3/V4] ACUTE [place] UNCONFIRMED REPORT Electronically signed by : Favian Willard MD 06/03/2022 20:26:16
[2022-06-03 15:00] VITALS: BP 114/67; PULSE 62; RESP 20; O2SAT 97
[2022-06-03 15:15] VITALS: BP 101/54; PULSE 69; RESP 20; O2SAT 97
[2022-06-03 15:27] VITALS: BP 120/77; PULSE 67; RESP 20; O2SAT 97
== END 2022-06-03 15:55 | disposition home or self-care (01) ==
PROVIDERS: Internal Medicine Cardiovascular Disease; PCP Physician Assistant; Visit Provider Internal Medicine
DX: I48.91 Unspecified atrial fibrillation (principal); Z79.01 Long term (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; Z79.899 Other long term (current) drug therapy; I25.10 Atherosclerotic heart disease of native coronary artery without angina pectoris; I11.0 Hypertensive heart disease with heart failure; F17.210 Nicotine dependence, cigarettes, uncomplicated; I50.32 Chronic diastolic (congestive) heart failure; I42.9 Cardiomyopathy, unspecified
CPT/HCPCS: 92960; 93005; 93312

== ENCOUNTER 2022-11-02 15:00 | Outpatient (RCR) | payer MEDICAID, SELFPAY | END 2022-12-08 10:27 | disposition home or self-care (01) | LOC: PT 15:00 | PROVIDERS: PCP Nurse Practitioner; Visit Provider Orthopaedic Surgery | DX: M25.511 Pain in right shoulder (principal); Z96.611 Presence of right artificial shoulder joint | CPT/HCPCS: 97010; 97014; 97110; 97140; 97163; G0283 ==

== ENCOUNTER 2023-04-10 16:03 | Emergency (ER) | payer MEDICAID, SELFPAY ==
[2023-04-10] VITALS (13 sets, daily range): BP systolic 121–164; BP diastolic 78–115; PULSE 72–97; RESP 14–25; TEMP 36.6; O2SAT 89–100; BMI 21.4
[2023-04-10 16:34] LABS: Microscopic, Urine URINE MICROSCOPIC (MICROSCOPIC)
--- NOTE | 2023-04-10 16:40 | CT_ITS ---
PROCEDURE INFORMATION: Exam: CTA Chest With Contrast Exam date and time: 04/10/2023 5:42 PM Age: 62 years old Clinical indication: Pain; Chest pressure; Additional info: Abd pain TECHNIQUE: Imaging protocol: Computed tomographic angiography of the chest with contrast. Exam focused on the arteries. 3D rendering (Not supervised by radiologist): MIP and/or 3D reconstructed images were created by the technologist. Radiation optimization: All CT scans at this facility use at least one of these dose optimization techniques: automated exposure control; mA and/or kV adjustment per patient size (includes targeted exams where dose is matched to clinical indication); or iterative reconstruction. Contrast material: ISO 370; Contrast volume: 100 ml; Contrast route: INTRAVENOUS (IV); COMPARISON: CT ANGIO CHEST PE PROTOCOL 01/14/2022 4:26 PM FINDINGS: Tubes, catheters and devices: Right shoulder prosthesis in place. Pulmonary arteries: Normal. No pulmonary emboli. Aorta: Unremarkable. No aortic aneurysm. No aortic dissection. Lungs: Moderate changes of emphysema in the bilateral upper lungs. No acute infiltrate. 8 mm triangular right apical pulmonary nodule appears new compared to prior study. Pleural spaces: Unremarkable. No pneumothorax. No pleural effusion. Heart: Unremarkable. No cardiomegaly. No pericardial effusion. Lymph nodes: Unremarkable. No enlarged lymph nodes. Bones/joints: Moderate degenerative disc changes throughout the thoracic spine. No vertebral body compression or acute fracture. Partially visualized thoracolumbar scoliosis. Old ununited distal left clavicle fracture. Soft tissues: Unremarkable. IMPRESSION: No significant aortic or other vascular abnormality. 8 mm right apical pulmonary nodule appears new since 2021. For patients at low risk (minimal or absent history of smoking and of other known risk factors), recommend CT Chest at 6-12 months, then consider CT Chest at 18-24 months. For patients at high risk (history of smoking or of other known risk factors), recommend CT Chest at 6-12 months, then CT Chest at 18-24 months. (Reference: Amisha) References: Amisha Noonan et al. Guidelines for Management of Incidental Pulmonary Nodules Detected on CT Images: From the Fleischner Society 2017. Radiology. 2017;284(1):228-243. COMMENTS: The presence of pulmonary emphysema on CT is an independent risk factor for lung cancer. In the absence of a history or active diagnosis of lung cancer, it is recommended that this patient with emphysema be evaluated for enrollment in a low dose CT lung cancer screening program.
--- NOTE | 2023-04-10 16:40 | CT_ITS ---
PROCEDURE INFORMATION: Exam: CTA Abdomen With Contrast Exam date and time: 04/10/2023 5:42 PM Age: 62 years old Clinical indication: Abdominal pain; Generalized; Additional info: Abd pain TECHNIQUE: Imaging protocol: Computed tomographic angiography of the abdomen with contrast. Exam focused on the arteries. 3D rendering (Not supervised by radiologist): MIP and/or 3D reconstructed images were created by the technologist. Radiation optimization: All CT scans at this facility use at least one of these dose optimization techniques: automated exposure control; mA and/or kV adjustment per patient size (includes targeted exams where dose is matched to clinical indication); or iterative reconstruction. Contrast material: ISO 370; Contrast volume: 100 ml; Contrast route: INTRAVENOUS (IV); COMPARISON: CT ANGIO CHEST 04/10/2023 5:42 PM FINDINGS: Aorta: Moderate atherosclerotic calcification of the distal aorta and iliac arteries. No evidence of aortic aneurysm or dissection. Celiac trunk and mesenteric arteries: No occlusion or significant stenosis. Renal arteries: No occlusion or significant stenosis. Liver: Normal. No mass. Gallbladder and bile ducts: There are findings suggesting small gallbladder remnant containing several small gallstones Pancreas: Normal. No ductal dilation. Spleen: Normal. No splenomegaly. Adrenal glands: Normal. No mass. Kidneys and ureters: Normal. No hydronephrosis. Stomach and bowel: Significant sigmoid diverticulosis. No bowel wall thickening or evidence of bowel obstruction. Appendix: The appendix is visualized and appears normal. Lymph nodes: Unremarkable. No enlarged lymph nodes. Intraperitoneal space: Unremarkable. No free air. No significant fluid collection. Reproductive: Uterus is surgically absent. No adnexal abnormality. Bones/joints: Moderate dextroscoliosis of the lumbar spine with significant multilevel degenerative disc changes and facet arthropathy. Several old bilateral transverse process fractures and old, healed left pubic rami fractures noted. No acute fracture evident. Soft tissues: Unremarkable. IMPRESSION: No acute abnormality. Chronic appearing findings as noted.
[2023-04-10] MEDS: KETOROLAC 30MG/ML VIAL 15 MG IV (16:47)
[2023-04-10] MEDS: MORPHINE 4MG/ML SYRINGE 4 MG IV (16:48)
[2023-04-10 16:52] LABS: Basophils # 0.1 K/mm3 (0-0.2); Basophils % 1.3 % (0.1-2.0); Eosinophils # 0.3 K/mm3 (0.0-0.4); Eosinophils % 2.8 % (0.1-12.0); Hematocrit 47.1 % (37.0-47.0); Hemoglobin 14.9 g/dL (12.2-16.2); Lymphocytes % 18.9 % (10-50); Mean Corpuscular HGB Conc 31.6 g/dL (31.8-35.4); Mean Corpuscular Hemoglobin 30.1 pg (27.0-31.2); Mean Corpuscular Volume 95.2 fl (81-99); Mean Platelet Volume 8.1 fl (7.4-10.4); Monocytes # 0.7 K/mm3 (0.1-1.0); Monocytes % 6.4 % (1.7-9.3); Neutrophils # 7.4 K/mm3 (1.8-7.8); Neutrophils % 70.4 % (37.0-80.0); Platelet Count 378 K/mm3 (142-424); Red Blood Count 4.95 M/mm3 (4.20-5.40); Red Cell Distribution Width 16.1 % (11.5-17.5); White Blood Count 10.4 K/mm3 (4.8-10.8)
[2023-04-10 16:58] LABS: Appearance,Urine CLEAR (Clear); Bilirubin,Urine Negative (Negative); Blood, Urine Negative (Negative); Color,Urine YELLOW (Yellow); Glucose,Urine (UA) Negative (Negative); Ketones,Urine Negative (Negative); Leukocyte Esterase,Urine Negative (Negative); Nitrate,Urine Negative (Negative); PH,Urine 6.5 (5.0-8.5); Protein,Urine TRACE (Negative); Urobilinogen,Urine 0.2 EU/dl (0.2)
[2023-04-10 17:03] LABS: Alanine Aminotransferase 23 U/L (12-78); Albumin Level 4.2 g/dl (3.5-5.0); Albumin/Globulin Ratio 1.4 (1.1-1.8); Alkaline Phosphatase 144 U/L (38-126); Anion Gap 10.3 mEq/L (5-15); Aspartate Amino Transferase 29 U/L (14-36); Bilirubin,Total 0.4 mg/dl (0.2-1.3); Blood Urea Nitrogen 15 mg/dl (7-17); Calcium 9.4 mg/dl (8.4-10.2); Carbon Dioxide 31 mmol/L (22.0-30.0); Chloride 102 mmol/L (98-107); Creatinine Clearance Estimated 110 mL/min (50-200); Estimated Glomerular Filt Rate 102 ml/min (>60); GFR (African American) 123 ML/MIN (>60); Globulin 3.1 g/dL (1.3-3.2); Glucose 85 mg/dl (74-100); Lipase 129 U/L (23-300); Potassium 4.3 mmoL/L (3.5-5.1); Sodium 139 mmol/L (136-145); Total Protein,Serum 7.3 g/dl (6.3-8.2)
[2023-04-10 17:04] LABS: Lactic Acid 1.1 mmol/L (0.7-2.1)
[2023-04-10 17:09] LABS: RBC,Urine Occasional #/hpf (0-3); WBC,Urine Occasional #/hpf (0-3); Yeast,Urine Occasional /lpf
[2023-04-10 17:10] LABS: Bacteria,Urine Trace /lpf
--- NOTE | 2023-04-10 17:10 | ED_ITS ---
Discharge Plan Disposition Patient Disposition: Home, Self-Care Condition: Good Prescriptions Prescriptions: No Action gabapentin 600 mg tablet 600 mg PO DAILY Patient Comments: TAKE 1 TABLET BY MOUTH ONCE DAILY FOR PAIN duloxetine 30 mg capsule,delayed release(DR/EC) 30 mg PO DAILY pantoprazole 40 mg tablet,delayed release (DR/EC) 40 mg PO DAILY Qty: 90 3RF Eliquis 5 mg tablet 5 mg PO BID Qty: 60 5RF aspirin 81 mg tablet,delayed release (DR/EC) 81 mg PO DAILY Qty: 100 3RF atorvastatin 40 mg tablet 40 mg PO HS Qty: 30 3RF diltiazem HCl 240 mg capsule,extended release 24 hr 240 mg PO BID Qty: 60 5RF Jardiance 10 mg tablet 10 mg PO DAILY Qty: 30 3RF famotidine 40 mg tablet 40 mg PO BID Qty: 60 5RF furosemide 20 mg tablet 20 mg PO DAILYP PRN (Reason: Shortness Of Breath) Qty: 90 1RF irbesartan 75 mg tablet 75 mg PO DAILY Qty: 30 3RF albuterol sulfate 1.25 MG/3 ML solution for nebulization 1.25 mg inhalation Q4HP PRN (Reason: Shortness Of Breath) albuterol sulfate 8.5 GM HFA aerosol inhaler 1 puff inhalation Q4HP PRN (Reason: Shortness Of Breath) budesonide-formoterol 10.2 GM HFA aerosol inhaler 2 puffs inhalation BID citalopram 10 mg tablet 10 mg PO DAILY diclofenac sodium 1 % gel 1 ea TOPICAL QIDP PRN (Reason: Pain) levothyroxine 50 mcg tablet 50 mcg PO DAILY mirtazapine 15 mg tablet 15 mg PO HS Referrals Follow up/Referrals: Solange Mills APRN [Primary Care Provider] - See instructions Activity Restrictions/Add. Instructions Additional Instructions/Restrictions: Call your family doctor to establish care for this visit to the emergency department and schedule follow-up within 48 hours to ensure improvement. If you have any worsening of your condition or any other concerning signs or symptoms, return to the emergency department or your primary care doctor for further evaluation. Take Tylenol 1000 mg every 6 hours (4 times daily) and ibuprofen 400 mg every 6 hours (4 times daily) as needed with food and water to prevent GI upset and kidney damage. Clinical Impressions Clinical Impression: Abdominal pain Qualifiers: Abdominal location: generalized Qualified Code(s): R10.84 - Generalized abdominal pain Instructions Patient Instructions: DI for Acute Abdominal Pain Discharge ED Provider: Mamadou Gaston General Adult HPI General Chief complaint: Abdominal Pain Stated complaint: pain in abdomen and back Time Seen by Provider: 04/10/23 16:08 Mode of Arrival: Wheelchair Source of Information: Patient Limitations: No Limitations Description of Symptoms (Recalled from ER Triage Doc. by RN): patient to ED via wheelchair with complaints of generalized abdominal pain that radiates to bilateral flank pain. Denies any urinary issues, along with fevers. Last BM 04/10/23. History of Present Illness HPI narrative: Patient is 62 years old has a history of hypertension, hyperlipidemia, COPD still currently smoking, diastolic heart failure, A-fib on Eliquis presenting with abdominal pain. She states that the abdominal pain started acutely about 6 hours prior to this visit. Started in her back and felt like it was tearing me in half, then radiated forward to her stomach. It is 8 out of 10, severe, stabbing and ripping. Patient denies difficulty ambulating, bowel or bladder dysfunction, hematuria, syncopal episodes, chest pain, shortness of breath, nausea or vomiting, recent illness, or any other concerns. Related Data Home Medications Medication Instructions Recorded Confirmed duloxetine 30 mg capsule,delayed 30 mg PO DAILY Depression 11/04/20 06/11/22 release gabapentin 600 mg tablet 600 mg PO DAILY Pain 11/04/20 06/11/22 albuterol sulfate 1.25 mg/3 mL 1.25 mg inhalation Q4HP PRN 01/09/21 06/11/22 solution for nebulization Shortness Of Breath albuterol sulfate 90 mcg/actuation 1 puff inhalation Q4HP PRN 01/10/21 06/11/22 aerosol inhaler Shortness Of Breath budesonide-formoterol HFA 160 2 puffs inhalation BID Breathing 01/10/21 06/11/22 mcg-4.5 mcg/actuation aerosol problems inhaler citalopram 10 mg tablet 10 mg PO DAILY Depression 03/01/22 06/11/22 diclofenac sodium 1 % topical gel 1 ea topical QIDP PRN Pain 03/01/22 06/11/22 levothyroxine 50 mcg tablet 50 mcg PO DAILY Hypothyroidism 03/01/22 06/11/22 mirtazapine 15 mg tablet 15 mg PO HS sleep 03/01/22 06/11/22 Previous Rx's Medication Instructions Recorded pantoprazole 40 mg tablet,delayed 40 mg PO DAILY GERD #90 tabs 03/04/21 release apixaban 5 mg tablet (Eliquis) 5 mg PO BID #60 tabs 01/28/23 aspirin 81 mg tablet,delayed 81 mg PO DAILY #100 tabs 01/28/23 release atorvastatin 40 mg tablet 40 mg PO HS Cholesterol #30 tabs 01/28/23 diltiazem HCl 240 mg capsule,24 240 mg PO BID #60 caps 01/28/23 hr,extended release empagliflozin 10 mg tablet 10 mg PO DAILY #30 tabs 01/28/23 (Jardiance) famotidine 40 mg tablet 40 mg PO BID acid reflux #60 tabs 01/28/23 furosemide 20 mg tablet 20 mg PO DAILYP PRN Shortness Of 01/28/23 Breath #90 tabs irbesartan 75 mg tablet 75 mg PO DAILY #30 tabs 01/28/23 Allergies Allergy/AdvReac Type Severity Reaction Status Date / Time codeine Allergy Mild Nausea Verified 06/11/22 11:08 penicillin G [PENICILLIN G] Allergy Mild I-RASH/NV Verified 06/11/22 11:08 acetaminophen [ACETAMINOPHEN] AdvReac Mild NOT Verified 06/11/22 11:08 ALLERGIC. NEED TO W[facility]UE [facility] Disclaimer: The information contained in this section may have been updated after the patien t was seen, as this information can be updated by other users. Medical History (HFpEF) heart failure with preserved ejection fraction Atrial fibrillation/flutter Chronic, continuous use of opioids COPD (chronic obstructive pulmonary disease) Coronary artery disease Hepatitis C Hyperlipidemia Hypertension Hypothyroidism Pulmonary hypertension Right rotator cuff tear Sinus bradycardia Tobacco dependence Surgical History H/O splenectomy History of cardioversion History of cholecystectomy History of hysterectomy History of left heart catheterization History of mandibular surgery History of surgery on right wrist S/P rotator cuff repair Family History Mother Stroke Father Coronary artery disease Social History Smoking Status: Current every day smoker tobacco type: cigarettes packs per day: 1 years smoked: 40 second hand exposure: Yes alcohol intake: never substance use type: denies use current occupational status: unemployed and disabled Travel in the last 8 weeks: Inside the [place] household members: none housing: house lives independently: Yes marital status: single number of children: 3 current occupation: Disabled caffeine: Yes ROS Obtained: Yes All systems reviewed & no additional complaints except as documented Physical Exam General General appearance: alert and in distress (Secondary to pain) Head Head exam: atraumatic and normocephalic Eye Eye exam: Present normal appearance, PERRL and EOMI ENT ENT exam: Present mucous membranes moist Neck Neck exam: Present normal inspection, full ROM and trachea midline Respiratory Respiratory exam: Present normal lung sounds bilaterally; Absent respiratory distress, wheezes, stridor, accessory muscle use or prolonged expiratory phase Cardiovascular Cardiovascular exam: Present regular rate and normal rhythm Abdominal Exam Abdominal exam: Present soft; Absent distention, tenderness, guarding, rebound, rigidity, pulsatile mass or hernia Abdominal tenderness: Present diffuse and mild Extremities Exam Extremities exam: Absent edema Neurological Exam Neurological exam: Present alert, oriented X3, CN II-XII intact and normal gait; Absent motor sensory deficit Skin Skin exam: Present warm and dry; Absent diaphoresis or erythema Medical Decision Making Medical Records Medical records reviewed: Yes I reviewed the patient's medical records. Alberto Inquiry Pt receiving controlled substance: No Alberto was queried for this patient: No Vital Signs: 04/10/23 16:05 04/10/23 17:00 04/10/23 17:15 Temperature 97.8 F Temperature Source Oral Pulse Rate 91 H 83 Pulse Rate [Right] 89 Respiratory Rate 24 16 Blood Pressure 139/99 H 161/108 H Blood Pressure [Right Arm] 164/115 H Blood Pressure Mean Blood Pressure Mean [Right Arm] 131 Blood Pressure Source [Right Arm] Automatic Cuff Blood Pressure Position [Right Arm] Supine 02 Sat by Pulse Oximetry 92 L 90 L 89 L Oxygen Delivery Method Room Air Room Air Room Air Oxygen Flow Rate (LPM) 04/10/23 17:30 04/10/23 18:01 04/10/23 18:15 Temperature Temperature Source Pulse Rate 75 97 H 88 Pulse Rate [Right] Respiratory Rate 17 15 16 Blood Pressure 143/103 H 121/88 150/96 H Blood Pressure [Right Arm] Blood Pressure Mean Blood Pressure Mean [Right Arm] Blood Pressure Source [Right Arm] Blood Pressure Position [Right Arm] 02 Sat by Pulse Oximetry 96 96 99 Oxygen Delivery Method Nasal Cannula Nasal Cannula Nasal Cannula Oxygen Flow Rate (LPM) 4 4 4 04/10/23 18:30 04/10/23 18:46 04/10/23 19:00 Temperature Temperature Source Pulse Rate 94 H 92 H 87 Pulse Rate [Right] Respiratory Rate 25 H 15 16 Blood Pressure 147/99 H 140/93 H 134/92 H Blood Pressure [Right Arm] Blood Pressure Mean 105 Blood Pressure Mean [Right Arm] Blood Pressure Source [Right Arm] Blood Pressure Position [Right Arm] 02 Sat by Pulse Oximetry 100 98 99 Oxygen Delivery Method Nasal Cannula Nasal Cannula Nasal Cannula Oxygen Flow Rate (LPM) 4 4 04/10/23 19:30 04/10/23 19:45 04/10/23 20:00 Temperature Temperature Source Pulse Rate 78 87 84 Pulse Rate [Right] Respiratory Rate 17 14 15 Blood Pressure 125/81 145/95 H 131/95 H Blood Pressure [Right Arm] Blood Pressure Mean 95 107 111 Blood Pressure Mean [Right Arm] Blood Pressure Source [Right Arm] Blood Pressure Position [Right Arm] 02 Sat by Pulse Oximetry 98 98 98 Oxygen Delivery Method Nasal Cannula Nasal Cannula Room Air Oxygen Flow Rate (LPM) 04/10/23 20:32 Temperature 97.8 F Temperature Source Oral Pulse Rate 72 Pulse Rate [Right] Respiratory Rate 16 Blood Pressure 134/78 Blood Pressure [Right Arm] Blood Pressure Mean Blood Pressure Mean [Right Arm] Blood Pressure Source [Right Arm] Blood Pressure Position [Right Arm] 02 Sat by Pulse Oximetry Oxygen Delivery Method Room Air Oxygen Flow Rate (LPM) Lab Data Lab Results 04/10/23 16:17: Urine Color Yellow, Urine Appearance Clear, Urine pH 6.5, Ur Specific [place] 1.020, Urine Protein Trace, Urine Glucose (UA) Negative, Urine Ketones Negative, Urine Blood Negative, Urine Nitrate Negative, Urine Bilirubin Negative, Urine Urobilinogen 0.2, Ur Leukocyte Esterase Negative, Urine RBC Occasional, Urine WBC Occasional, Ur Squamous Epith Cells 3-5, Urine Bacteria Trace, Urine Yeast Occasional 04/10/23 16:30: WBC 10.4, RBC 4.95, Hgb 14.9, Hct 47.1 H, MCV 95.2, MCH 30.1, MCHC 31.6 L, RDW 16.1, Plt Count 378, MPV 8.1, Neut % (Auto) 70.4, Lymph % (Auto) 18.9, Weber % (Auto) 6.4, Eos % (Auto) 2.8, Baso % (Auto) 1.3, Neut # (Auto) 7.4, Lymph # (Auto) 2.0, Weber # (Auto) 0.7, Eos # (Auto) 0.3, Baso # (A uto) 0.1, Sodium 139, Potassium 4.3, Chloride 102, Carbon Dioxide 31 H, Anion Gap 10.3, BUN 15, Creatinine 0.60, Estimated Creat Clear 110, Estimated GFR 102, Est GFR ( Amer) 123, Glucose 85, Lactate 1.1, Calcium 9.4, Total Bilirubin 0.4, AST 29, ALT 23, Alkaline Phosphatase 144 H, Troponin I < 0.01, Total Protein 7.3, Albumin 4.2, Globulin 3.1, Albumin/Globulin Ratio 1.4, Lipase 129 04/10/23 19:30: Troponin I < 0.01 04/10/23 16:30 04/10/23 16:30 Orders (Tests/Meds): ED MEDICATIONS Discontinued Medications Generic Name Dose Route Start Last Admin Trade Name Jackson PRN Reason Stop Dose Admin Acetaminophen 1,000 mg 04/10/23 17:11 04/10/23 17:22 Acetaminophen 1,000mg/100ml Vial IV 04/10/23 17:12 1,000 mg ONCE ONE Administration Hydromorphone HCl 0.5 mg 04/10/23 17:11 04/10/23 17:23 Hydromorphone 2mg/Ml Syringe IV 04/10/23 17:12 0.5 mg ONCE ONE Administration Iopamidol 100 ml 04/10/23 17:43 04/10/23 17:44 Iopamidol-370 (76%);100ml Bottle IV 04/10/23 17:44 100 ml ONCE ONE Administration Ketorolac Tromethamine 15 mg 04/10/23 16:29 04/10/23 16:47 Ketorolac 30mg/Ml Vial IV 04/10/23 16:30 15 mg ONCE ONE Administration Morphine Sulfate 4 mg 04/10/23 16:40 04/10/23 16:48 Morphine 4mg/Ml Syringe IV 04/10/23 16:41 4 mg ONCE ONE Administration Sodium Chloride 10 ml 04/10/23 16:54 Sodium Chloride 0.9% 10ml Flush Syringe IV 05/10/23 16:53 NEEDED PRN Maintain IV Site Sodium Chloride 50 ml 04/10/23 17:43 04/10/23 17:44 0.9 % Sodium Chloride 50 Ml Vial IV 04/10/23 17:44 50 ml ONCE ONE Administration Sodium Chloride 10 ml 04/10/23 17:43 04/10/23 17:44 Sodium Chloride 0.9% 10ml Syr (Rad Only) IV 04/10/23 17:44 10 ml ONCE ONE Administration ORDERS Category Date Time Status CT angio abdomen Stat Cat Scan 04/10/23 16:[address] angio chest - dissection Stat Cat Scan 04/10/23 16:40 Completed Complete Blood Count Auto Diff Stat Lab 04/10/23 16:30 Completed Comprehensive Metabolic Panel Stat Lab 04/10/23 16:30 Completed Lactic Acid Stat Lab 04/10/23 16:30 Completed Lipase Stat Lab 04/10/23 16:30 Completed Troponin I Q3H Lab 04/10/23 19:30 Completed Troponin I Q3H Lab 04/10/23 22:30 Ordered Troponin I Stat Lab 04/10/23 16:30 Completed Urinalysis and Microscopic Stat Lab 04/10/23 16:17 Completed ECG initial Besson Routine Y 04/10/23 17:28 Completed HEART Score History (anamnesis): Slightly suspicious ECG: Non-specific disturbance Age: 45-65 years Risk factors: 3 or more risk factors Troponin: </= normal limit HEART Score: 4 Medical Decision Narrative: Patient is 62 years old has a history of hypertension, hyperlipidemia, COPD still currently smoking, diastolic heart failure, A-fib on Eliquis presenting with abdominal pain. She states that the abdominal pain started acutely about 6 hours prior to this visit. Started in her back and felt like it was tearing me in half, then radiated forward to her stomach. It is 8 out of 10, severe, stabbing and ripping. Patient denies difficulty ambulating, bowel or bladder dysfunction, hematuria, syncopal episodes, chest pain, shortness of breath, nausea or vomiting, recent illness, or any other concerns. History was obtained via conversation with patient. On arrival, patient hemodynamically stable, alert, oriented x4, appropriate, GCS 15, moving all extremities spontaneously, pupils equal and reactive to light. Full physical exam performed and significant for well-appearing female who appears to be in mild distress secondary to pain. Abdomen is soft, nonperitoneal it, but it is diffusely tender without pulsatile mass. No focal tenderness. No flank tenderness. Cardiopulmonary exam within normal limits, pulses equal and symmetric in upper and lower extremities and patient neurologically intact. Differential includes dissection, mesenteric ischemia, PUD, gastritis, enteritis, gastroenteritis, pancreatitis, SBO, colitis, diverticulitis, nephrolithiasis, UTI,cholecystitis, choledocholithiasis, appendicitis, hepatitis, torsion, among others Patient was given Toradol, morphine 4 mg for symptomatic management and correction of underlying abnormalities. Workup independently interpreted and significant for no leukocytosis, nonactionable CBC or chemistry. LFTs nonactionable. Kidney function normal and electrolytes normal. Troponin negative. Lipase negative. Urinalysis without concern for UTI. CTA of the chest abdomen pelvis without dissection, aneurysm, or any other acute abnormality. See radiology read for full review of final results. EKG independently interpreted. Sinus rhythm 71 beats a minute without ST or T wave changes concerning for acute ischemia. LVH, axis normal. MS, QRS, QT intervals within normal limits Heart score 4. On reevaluation, patient asymptomatic and feeling much better after Toradol and Outing of. Given patient presentation, workup, history, this most likely represents undifferentiated abdominal pain. Because patient at baseline without signs or symptoms of clinical decompensation, deemed appropriate for discharge. Results were relayed to patient who voiced understanding and were agreeable to outpatient management and follow up. At the time of discharge the patient was hemodynamically stable, tolerating PO, and mobilizing appropriately. Close return precautions given in the setting of no definite diagnosis. Critical Care Critical Care Time Critical Care Time: No
[2023-04-10 17:21] LABS: Troponin I < 0.01 ng/ml (0.00-0.034)
[2023-04-10] MEDS: ACETAMINOPHEN 1,000MG/100ML VIAL 1000 MG IV (17:22)
[2023-04-10] MEDS: HYDROMORPHONE 2MG/ML SYRINGE 0.5 MG IV (17:23)
--- NOTE | 2023-04-10 17:28 | ECG_ITS ---
APPROVED REPORT Exam: Resting ECG HR:71 bpm ECG Measurements Heart Rate 71 AXES CO 157 P 80 QRSd 117 QRS 81 QT 423 T 89 QTc 446 Conclusion SINUS RHYTHM Incomplete right bundle branch block LVH Electronically signed by : TRENA WHITMORE, 04/10/2023 22:01:09
--- NOTE | 2023-04-10 17:30 | PC.NURSE ---
O2 SAT 89 % ON RA , O2 APPLIED AT 3 LPM O2 SAT INCREASED TO 96% PT RESTING AND BREATHING MUCH EASIER AFTER PAIN MEDS
--- NOTE | 2023-04-10 17:42 | PC.NURSE ---
PT GONE TO CT
[2023-04-10] MEDS: IOPAMIDOL-370 (76%);100ML BOTTLE 100 ML IV (17:44)
[2023-04-10] MEDS: SODIUM CHLORIDE 0.9% 10ML SYR (RAD ONLY) 10 ML IV (17:44)
[2023-04-10] MEDS: 0.9 % SODIUM CHLORIDE 50 ML VIAL IV (17:44)
[2023-04-10 20:13] LABS: Troponin I < 0.01 ng/ml (0.00-0.034)
== END 2023-04-10 20:32 | disposition home or self-care (01) ==
PROVIDERS: Emergency Provider Emergency Medicine; PCP Nurse Practitioner
DX: R10.84 Generalized abdominal pain (principal); I11.0 Hypertensive heart disease with heart failure; I50.30 Unspecified diastolic (congestive) heart failure; E78.5 Hyperlipidemia, unspecified; J44.9 Chronic obstructive pulmonary disease, unspecified; I48.91 Unspecified atrial fibrillation; E03.9 Hypothyroidism, unspecified; I27.20 Pulmonary hypertension, unspecified; F17.210 Nicotine dependence, cigarettes, uncomplicated; Z79.01 Long term (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
CPT/HCPCS: 36415; 71275; 74175; 80053; 81001; 83605; 83690; 84484; 85025; 93005; 96374; 96375; 99285; J0131; Q9967

== ENCOUNTER 2023-04-13 16:12 | Outpatient (CLI) | payer MEDICAID, SELFPAY | END 2023-04-13 23:59 | LOC: RT 16:13 | PROVIDERS: PCP Nurse Practitioner; Visit Provider Physician Assistant | DX: I48.91 Unspecified atrial fibrillation (principal); I50.30 Unspecified diastolic (congestive) heart failure; R06.00 Dyspnea, unspecified | CPT/HCPCS: 93225 ==

== ENCOUNTER 2023-04-15 16:55 | Outpatient (CLI) | payer MEDICAID, SELFPAY | END 2023-04-15 23:59 | LOC: RT 16:56 | PROVIDERS: PCP Nurse Practitioner; Visit Provider Nurse Practitioner | DX: R06.00 Dyspnea, unspecified (principal); I50.30 Unspecified diastolic (congestive) heart failure; I48.91 Unspecified atrial fibrillation | CPT/HCPCS: 93270 ==

== ENCOUNTER 2023-07-13 13:37 | Emergency (ER) | payer MEDICAID, SELFPAY ==
[2023-07-13] VITALS (8 sets, daily range): BP systolic 118–123; BP diastolic 80–98; PULSE 60–143; RESP 16–23; TEMP 36.9; O2SAT 86–98; BMI 21.2
--- NOTE | 2023-07-13 13:38 | ECG_ITS ---
APPROVED REPORT Exam: Resting ECG HR:143 bpm ECG Measurements Heart Rate 143 AXES QRSd 113 QRS 85 QT 327 T -39 QTc 410 Conclusion ATRIAL FLUTTER/TACHYCARDIA WITH RAPID VENTRICULAR RESPONSE MODERATE INTRAVENTRICULAR CONDUCTION DELAY [110+ ms QRS DURATION] VOLTAGE CRITERIA FOR LVH [MEETS CRITERIA IN ONE OF: R(aVL), S(V1), R(V5), R(V5/V6)+S(V1)] MODERATE T-WAVE ABNORMALITY, CONSIDER ANTEROLATERAL ISCHEMIA [-0.1+ mV T-WAVE IN V3-V6] MODERATE T-WAVE ABNORMALITY, CONSIDER INFERIOR ISCHEMIA [-0.1+ mV T-WAVE IN II/aVF] ABNORMAL ECG Electronically signed by : WESTON WAGNER, 07/14/2023 21:46:31
--- NOTE | 2023-07-13 13:45 | XR_ITS ---
FINAL REPORT CLINICAL HISTORY: Chest pain FINDINGS: SINGLE-VIEW CHEST The heart size is normal. The mediastinum is normal. There is right base opacity, may represent atelectasis or pneumonia. Postoperative changes are seen in the right shoulder and distal left clavicle. There is no pneumothorax. IMPRESSION: Right base atelectasis versus pneumonia. Reviewed, Interpreted and Dictated by Vic Munoz III, MD Transcribed by Jagruti Maher Authenticated and [facility]
--- NOTE | 2023-07-13 13:46 | HMH.EDGENADL ---
Discharge Plan Disposition Patient Disposition: Home, Self-Care Prescriptions Prescriptions: New doxycycline hyclate 100 mg capsule 100 mg PO BID 5 Days Qty: 10 0RF prednisone 20 mg tablet 40 mg PO DAILY 5 Days Qty: 10 0RF No Action gabapentin 600 mg tablet 600 mg PO DAILY Patient Comments: TAKE 1 TABLET BY MOUTH ONCE DAILY FOR PAIN duloxetine 30 mg capsule,delayed release(DR/EC) 30 mg PO DAILY pantoprazole 40 mg tablet,delayed release (DR/EC) 40 mg PO DAILY Qty: 90 3RF diclofenac sodium 75 mg tablet,delayed release (DR/EC) 75 mg PO ONCE lidocaine [Lidoderm] 5 % adhesive patch,medicated 1 patch topical DAILY meclizine 25 mg tablet,chewable 25 mg PO DAILY PRN furosemide 20 mg tablet 40 mg PO DAILY Eliquis 5 mg tablet 5 mg PO BID Qty: 60 5RF aspirin 81 mg tablet,delayed release (DR/EC) 81 mg PO DAILY Qty: 100 3RF atorvastatin 40 mg tablet 40 mg PO HS Qty: 30 3RF diltiazem HCl 240 mg capsule,extended release 24 hr 240 mg PO BID Qty: 60 5RF Jardiance 10 mg tablet 10 mg PO DAILY Qty: 30 3RF famotidine 40 mg tablet 40 mg PO BID Qty: 60 5RF irbesartan 75 mg tablet 75 mg PO DAILY Qty: 30 3RF metoprolol succinate [Toprol XL] 25 mg tablet extended release 24 hr 25 mg PO DAILY Qty: 30 5RF albuterol sulfate 1.25 MG/3 ML solution for nebulization 1.25 mg inhalation Q4HP PRN (Reason: Shortness Of Breath) albuterol sulfate 8.5 GM HFA aerosol inhaler 1 puff inhalation Q4HP PRN (Reason: Shortness Of Breath) budesonide-formoterol 10.2 GM HFA aerosol inhaler 2 puffs inhalation BID citalopram 10 mg tablet 10 mg PO DAILY diclofenac sodium 1 % gel 1 ea TOPICAL QIDP PRN (Reason: Pain) levothyroxine 50 mcg tablet 50 mcg PO DAILY mirtazapine 15 mg tablet 15 mg PO HS Referrals Follow up/Referrals: Jacque Mills PA [Primary Care Provider] - See instructions Activity Restrictions/Add. Instructions Additional Instructions/Restrictions: Call your family doctor to establish care for this visit to the emergency department and schedule follow-up within 48 hours to ensure improvement. If you have any worsening of your condition or any other concerning signs or symptoms, return to the emergency department or your primary care doctor for further evaluation. Doxycycline twice daily for 5 days, prednisone each morning for 5 days to help with breathing. Clinical Impressions Clinical Impression: Acute exacerbation of chronic obstructive pulmonary disease Discharge ED Provider: Chidi Becerril Adult HPI <Chidi Becerril MD - Last Filed: 07/15/23 11:41> General Chief complaint: Arrhythmia/Palpitations Stated complaint: Chest Pain Time Seen by Provider: 07/13/23 13:45 History of Present Illness HPI narrative: The patient presents with a chief complaint of shortness of breath that has been ongoing for several days. She uses supplemental oxygen as needed, typically at night, at a rate of 2.5 liters. She denies any pain but reports a possible fever on Wednesday, which has since resolved. She reports associated substernal nonradiating chest pain that is exacerbated and was preceded by cough. No syncope or presyncope. The patient has a history of atrial fibrillation/ flutter and is currently taking Diltiazem and Eliquis. Her last dose of Eliquis was taken this morning. She has been able to eat and drink but has not been around anyone sick recently. Please note that above description of symptoms, in this electronic medical record under categorization of recalled from ER triage doctor by RN are reflective of an initial nursing assessment, however, is not reflective of my full history and physical exam that was personally taken and clarified. Consequentially, this preceding description of symptoms, which may include the patient's categorized chief complaint in the EMR, do not reflect my personal clinical impression, and the ultimate description of history of present illness and patient stated complaints should be deferred to this section of the note. Unless stated otherwise or congruent with this section of the note, additional signs, symptoms, or incongruence should be interpreted as inaccurate with my clinical impression. Related Data Home Medications Medication Instructions Recorded Confirmed duloxetine 30 mg capsule,delayed 30 mg PO DAILY Depression 11/04/20 06/11/22 release gabapentin 600 mg tablet 600 mg PO DAILY Pain 11/04/20 06/11/22 albuterol sulfate 1.25 mg/3 mL 1.25 mg inhalation Q4HP PRN 01/09/21 06/11/22 solution for nebulization Shortness Of Breath albuterol sulfate 90 mcg/actuation 1 puff inhalation Q4HP PRN 01/10/21 06/11/22 aerosol inhaler Shortness Of Breath budesonide-formoterol HFA 160 2 puffs inhalation BID Breathing 01/10/21 06/11/22 mcg-4.5 mcg/actuation aerosol problems inhaler citalopram 10 mg tablet 10 mg PO DAILY Depression 03/01/22 06/11/22 diclofenac sodium 1 % topical gel 1 ea topical QIDP PRN Pain 03/01/22 06/11/22 levothyroxine 50 mcg tablet 50 mcg PO DAILY Hypothyroidism 03/01/22 06/11/22 mirtazapine 15 mg tablet 15 mg PO HS sleep 03/01/22 06/11/22 diclofenac sodium 75 mg 75 mg PO ONCE 04/13/23 04/13/23 tablet,delayed release furosemide 20 mg tablet 40 mg PO DAILY Shortness Of Breath 04/13/23 04/13/23 lidocaine 5 % topical patch 1 patch topical DAILY 04/13/23 04/13/23 (Lidoderm) meclizine 25 mg chewable tablet 25 mg PO DAILY PRN 04/13/23 04/13/23 Previous Rx's Medication Instructions Recorded pantoprazole 40 mg tablet,delayed 40 mg PO DAILY GERD #90 tabs 03/04/21 release apixaban 5 mg tablet (Eliquis) 5 mg PO BID #60 tabs 01/28/23 aspirin 81 mg tablet,delayed 81 mg PO DAILY #100 tabs 01/28/23 release atorvastatin 40 mg tablet 40 mg PO HS Cholesterol #30 tabs 01/28/23 diltiazem HCl 240 mg capsule,24 240 mg PO BID #60 caps 01/28/23 hr,extended release empagliflozin 10 mg tablet 10 mg PO DAILY #30 tabs 01/28/23 (Jardiance) famotidine 40 mg tablet 40 mg PO BID acid reflux #60 tabs 01/28/23 irbesartan 75 mg tablet 75 mg PO DAILY #30 tabs 01/28/23 metoprolol succinate 25 mg 25 mg PO DAILY #30 tabs 06/07/23 tablet,extended release 24 hr (Toprol XL) doxycycline hyclate 100 mg capsule 100 mg PO BID 5 days #10 caps 07/13/23 prednisone 20 mg tablet 40 mg (2 x 20 mg) PO DAILY 5 days 07/13/23 #10 tabs Allergies Allergy/AdvReac Type Severity Reaction Status Date / Time codeine Allergy Mild Nausea Verified 04/13/23 15:17 penicillin G [PENICILLIN G] Allergy Mild I-RASH/NV Verified 04/13/23 15:17 acetaminophen [ACETAMINOPHEN] AdvReac Mild NOT Verified 04/13/23 15:17 ALLERGIC. NEED TO WATCH DUE TO LIVER [facility] <Chidi Becerril MD - Last Filed: 07/15/23 11:41> [facility] Disclaimer: The information contained in this section may have been updated after the patient was seen, as this information can be updated by other users. Medical History (Updated 07/13/23 @ 15:41 by Mamadou Gaston MD) Dyspnea Afib Sinus bradycardia Coronary artery disease Chronic, continuous use of opioids Right rotator cuff tear Hypothyroidism Atrial fibrillation/flutter Pulmonary hypertension Hepatitis C Tobacco dependence (HFpEF) heart failure with preserved ejection fraction Hyperlipidemia Hypertension COPD (chronic obstructive pulmonary disease) Surgical History History of hysterectomy History of surgery on right wrist History of mandibular surgery History of left heart catheterization History of cholecystectomy S/P rotator cuff repair H/O splenectomy History of cardioversion Family History Mother Stroke Father Coronary artery disease Social History Smoking Status: Current every day smoker tobacco type: cigarettes packs per day: 1 years smoked: 40 second hand exposure: Yes alcohol intake: never substance use type: denies use current occupational status: unemployed and disabled Travel in the last 8 weeks: Inside the [place] household members: none housing: house lives independently: Yes marital status: single number of children: 3 current occupation: Disabled caffeine: Yes <Chidi Becerril MD - Last Filed: 07/15/23 11:41> ROS Obtained: Yes other As per HPI Physical Exam <Chidi Becerril MD - Last Filed: 07/15/23 11:41> General General appearance: alert and in no apparent distress Head Head exam: atraumatic and normocephalic Eye Eye exam: Present normal appearance Neck Neck exam: Present normal inspection Chest Chest inspection: Present normal inspection and symmetric chest wall rise Respiratory Respiratory exam: Present wheezes, accessory muscle use and prolonged expiratory phase Cardiovascular Cardiovascular exam: Present regular rate and normal rhythm Abdominal Exam Abdominal exam: Present soft Neurological Exam Neurological exam: Present alert and oriented X3 Psychiatric Psychiatric exam: Present normal affect and normal mood Skin Skin exam: Present warm and dry Medical Decision Making <Chidi Becerril MD - Last Filed: 07/15/23 11:41> Medical Records Medical records reviewed: Yes I reviewed the patient's medical records. Alberto Inquiry Pt receiving controlled substance: No Vital Signs: 07/13/23 13:37 07/13/23 13:52 07/13/23 14:01 Temperature 98.4 F Temperature Source Oral Pulse Rate 141 H 119 H Pulse Rate [Right] 143 H Respiratory Rate 23 21 21 Blood Pressure 121/98 H Blood Pressure [Right Arm] 121/98 H Blood Pressure Mean [Right Arm] 105 Blood Pressure Source [Right Arm] Automatic Cuff 02 Sat by Pulse Oximetry 86 L 97 95 Oxygen Delivery Method Room Air Nasal Cannula Nasal Cannula Oxygen Flow Rate (LPM) 2.5 2.5 07/13/23 14:30 07/13/23 15:00 07/13/23 15:15 Temperature Temperature Source Pulse Rate 113 H 60 74 Pulse Rate [Right] Respiratory Rate 17 18 17 Blood Pressure 118/80 123/88 123/88 Blood Pressure [Right Arm] Blood Pressure Mean [Right Arm] Blood Pressure Source [Right Arm] 02 Sat by Pulse Oximetry 98 96 97 Oxygen Delivery Method Nasal Cannula Nasal Cannula Oxygen Flow Rate (LPM) 2.5 2.5 07/13/23 15:30 07/13/23 15:49 Temperature 98.4 F Temperature Source Pulse Rate 72 81 Pulse Rate [Right] Respiratory Rate 16 20 Blood Pressure 119/87 119/87 Blood Pressure [Right Arm] Blood Pressure Mean [Right Arm] Blood Pressure Source [Right Arm] 02 Sat by Pulse Oximetry 97 Oxygen Delivery Method Nasal Cannula Room Air Oxygen Flow Rate (LPM) 2.5 Lab Data Lab Results 07/13/23 13:40: WBC 9.6, RBC 4.97, Hgb 14.8, Hct 46.4, MCV 93.5, MCH 29.8, MCHC 31.8, RDW 16.6, Plt Count 374, MPV 7.6, Neut % (Auto) 63.5, Lymph % (Auto) 24.7, [place] % (Auto) 6.5, Eos % (Auto) 3.9, Baso % (Auto) 1.5, Neut # (Auto) 6.1, Lymph # (Auto) 2.4, [place] # (Auto) 0.6, Eos # (Auto) 0.4, Baso # (Auto) 0.1, Sodium 141, Potassium 4.0, Chloride 101, Carbon Dioxide 30, Anion Gap 14.0, BUN 22 H, Creatinine 0.80, Estimated Creat Clear 81, Estimated GFR 73, Est GFR ( Amer) 89, Glucose 95, Calcium 9.5, Total Bilirubin 0.6, AST 48 H, ALT 41, Alkaline Phosphatase 135 H, Troponin I < 0.01, Total Protein 9.2 H D, Albumin 4.8, Globulin 4.4 H, Albumin/Globulin Ratio 1.1 07/13/23 13:40 07/13/23 13:40 Orders (Tests/Meds): ED MEDICATIONS Discontinued Medications Generic Name Dose Route Start Last Admin Trade Name Freq PRN Reason Stop Dose Admin Albuterol/Ipratropium 3 ml 07/13/23 13:57 07/13/23 14:04 Ipratropium/Albuterol 3 Ml Counts include 234 beds at the [facility] 07/13/23 13:58 3 ml ONCE ONE Administration Albuterol/Ipratropium 3 ml 07/13/23 14:38 07/13/23 14:47 Ipratropium/Albuterol 3 Ml Counts include 234 beds at the [facility] 07/13/23 14:39 3 ml ONCE ONE Administration Sodium Chloride 1,000 mls @ 999 mls/hr 07/13/23 13:57 07/13/23 14:03 Sod Chlor 0.9% 1000ml Bag IV 07/13/23 14:57 999 mls/hr .Q1H1M ONE Administration Magnesium Sulfate 2 gm in 50 mls @ 50 mls/hr 07/13/23 13:57 07/13/23 14:03 Magnesium Sulfate 2gm/50ml Premix IV 07/13/23 14:56 50 mls/hr ONCE ONE Administration Ketorolac Tromethamine 15 mg 07/13/23 14:49 07/13/23 15:04 Ketorolac 30mg/Ml Vial IV 07/13/23 14:50 15 mg ONCE ONE Administration Methylprednisolone Sodium Succinate 125 mg 07/13/23 14:15 07/13/23 14:05 Methylprednisolone Sod Succ 125mg Vial IV 07/13/23 14:16 125 mg ONCE ONE Administration Sodium Chloride 10 ml 07/13/23 13:46 Sodium Chloride 0.9% 10ml Flush Syringe IV 08/12/23 13:45 NEEDED PRN Maintain IV Site ORDERS Category Date Time Status CXR --portable [XR chest portable] Stat Exams 07/13/23 13:45 Completed Complete Blood Count Auto Diff Stat Lab 07/13/23 13:40 Completed Comprehensive Metabolic Panel Stat Lab 07/13/23 13:40 Completed Troponin I Stat Lab 07/13/23 13:40 Completed Medical Decision Narrative: Patient with history and exam per above presenting for evaluation of soa, chest pain Diagnoses considered include copd exacerbation, acs, PNA, among others ED workup and treatment included: ED MEDICATIONS Discontinued Medications Generic Name Dose Route Start Last Admin Trade Name Freq PRN Reason Stop Dose Admin Albuterol/Ipratropium 3 ml 07/13/23 13:57 07/13/23 14:04 Ipratropium/Albuterol 3 Ml Counts include 234 beds at the [facility] 07/13/23 13:58 3 ml ONCE ONE Administration Albuterol/Ipratropium 3 ml 07/13/23 14:38 07/13/23 14:47 Ipratropium/Albuterol 3 Ml Counts include 234 beds at the [facility] 07/13/23 14:39 3 ml ONCE ONE Administration Sodium Chloride 1,000 mls @ 999 mls/hr 07/13/23 13:57 07/13/23 14:03 Sod Chlor 0.9% 1000ml Bag IV 07/13/23 14:57 999 mls/hr .Q1H1M ONE Administration Magnesium Sulfate 2 gm in 50 mls @ 50 mls/hr 07/13/23 13:57 07/13/23 14:03 Magnesium Sulfate 2gm/50ml Premix IV 07/13/23 14:56 50 mls/hr ONCE ONE Administration Ketorolac Tromethamine 15 mg 07/13/23 14:49 07/13/23 15:04 Ketorolac 30mg/Ml Vial IV 07/13/23 14:50 15 mg ONCE ONE Administration Methylprednisolone Sodium Succinate 125 mg 07/13/23 14:15 07/13/23 14:05 Methylprednisolone Sod Succ 125mg Vial IV 07/13/23 14:16 125 mg ONCE ONE Administration Sodium Chloride 10 ml 07/13/23 13:46 Sodium Chloride 0.9% 10ml Flush Syringe IV 08/12/23 13:45 NEEDED PRN Maintain IV Site ORDERS Category Date Time Status CXR --portable [XR chest portable] Stat Exams 07/13/23 13:45 Completed Complete Blood Count Auto Diff Stat Lab 07/13/23 13:40 Completed Comprehensive Metabolic Panel Stat Lab 07/13/23 13:40 Completed Troponin I Stat Lab 07/13/23 13:40 Completed Labs and imaging pending at this time. Care was transferred to the incoming physician. Alek: I assumed primary responsibility for this patient after signout from previous physician. On my evaluation, patient heart rate 73, still in a flutter. Initial EKG on independent rotation atrial flutter with rate in the 140s without acute ST elevations concerning for PA. QRS and QT intervals within normal limits. Independent interpretation of workup with negative CBC, nonactionable chemistry, negative troponin. Chest x-ray with bibasilar lung scarring and flattening of the diaphragms consistent with COPD. No acute disease. On my evaluation, patient breathing easier, feeling much better, opting for home-going, I feel this is appropriate. Because patient with increased cough, increased sputum, change in color and volume of sputum, meets criteria for outpatient antibiotic and prednisone use. This was sent to her pharmacy because patient at baseline without signs or symptoms of clinical decompensation, deemed appropriate for discharge. Results were relayed to patient who voiced understanding and were agreeable to outpatient management and follow up. I discussed my clinical impression with patient and answered all questions. At this time, the evidence for any other entities in the differential is insufficient to warrant any further testing or ED observation. This was explained as well. Advisory was given that persistent or worsening symptoms require further evaluation. I confirmed the understanding of this discussion. <Mamadou Gaston MD - Last Filed: 07/13/23 15:45> Vital Signs: 07/13/23 13:37 07/13/23 13:52 07/13/23 14:01 Temperature 98.4 F Temperature Source Oral Pulse Rate 141 H 119 H Pulse Rate [Right] 143 H Respiratory Rate 23 21 21 Blood Pressure 121/98 H Blood Pressure [Right Arm] 121/98 H Blood Pressure Mean [Right Arm] 105 Blood Pressure Source [Right Arm] Automatic Cuff 02 Sat by Pulse Oximetry 86 L 97 95 Oxygen Delivery Method Room Air Nasal Cannula Nasal Cannula Oxygen Flow Rate (LPM) 2.5 2.5 07/13/23 14:30 07/13/23 15:00 07/13/23 15:15 Temperature Temperature Source Pulse Rate 113 H 60 74 Pulse Rate [Right] Respiratory Rate 17 18 17 Blood Pressure 118/80 123/88 123/88 Blood Pressure [Right Arm] Blood Pressure Mean [Right Arm] Blood Pressure Source [Right Arm] 02 Sat by Pulse Oximetry 98 96 97 Oxygen Delivery Method Nasal Cannula Nasal Cannula Oxygen Flow Rate (LPM) 2.5 2.5 07/13/23 15:30 07/13/23 15:49 Temperature 98.4 F Temperature Source Pulse Rate 72 81 Pulse Rate [Right] Respiratory Rate 16 20 Blood Pressure 119/87 119/87 Blood Pressure [Right Arm] Blood Pressure Mean [Right Arm] Blood Pressure Source [Right Arm] 02 Sat by Pulse Oximetry 97 Oxygen Delivery Method Nasal Cannula Room Air Oxygen Flow Rate (LPM) 2.5 Lab Data Lab Results 07/13/23 13:40: WBC 9.6, RBC 4.97, Hgb 14.8, Hct 46.4, MCV 93.5, MCH 29.8, MCHC 31.8, RDW 16.6, Plt Count 374, MPV 7.6, Neut % (Auto) 63.5, Lymph % (Auto) 24.7, [place] % (Auto) 6.5, Eos % (Auto) 3.9, Baso % (Auto) 1.5, Neut # (Auto) 6.1, Lymph # (Auto) 2.4, [place] # (Auto) 0.6, Eos # (Auto) 0.4, Baso # (Auto) 0.1, Sodium 141, Potassium 4.0, Chloride 101, Carbon Dioxide 30, Anion Gap 14.0, BUN 22 H, Creatinine 0.80, Estimated Creat Clear 81, Estimated GFR 73, Est GFR ( Amer) 89, Glucose 95, Calcium 9.5, Total Bilirubin 0.6, AST 48 H, ALT 41, Alkaline Phosphatase 135 H, Troponin I < 0.01, Total Protein 9.2 H D, Albumin 4.8, Globulin 4.4 H, Albumin/Globulin Ratio 1.1 Orders (Tests/Meds): ED MEDICATIONS Discontinued Medications Generic Name Dose Route Start Last Admin Trade Name Jackson PRN Reason Stop Dose Admin Albuterol/Ipratropium 3 ml 07/13/23 13:57 07/13/23 14:04 Ipratropium/Albuterol 3 Ml Counts include 234 beds at the [facility] 07/13/23 13:58 3 ml ONCE ONE Administration Albuterol/Ipratropium 3 ml 07/13/23 14:38 07/13/23 14:47 Ipratropium/Albuterol 3 Ml Counts include 234 beds at the [facility] 07/13/23 14:39 3 ml ONCE ONE Administration Sodium Chloride 1,000 mls @ 999 mls/hr 07/13/23 13:57 07/13/23 14:03 Sod Chlor 0.9% 1000ml Bag IV 07/13/23 14:57 999 mls/hr .Q1H1M ONE Administration Magnesium Sulfate 2 gm in 50 mls @ 50 mls/hr 07/13/23 13:57 07/13/23 14:03 Magnesium Sulfate 2gm/50ml Premix IV 07/13/23 14:56 50 mls/hr ONCE ONE Administration Ketorolac Tromethamine 15 mg 07/13/23 14:49 07/13/23 15:04 Ketorolac 30mg/Ml Vial IV 07/13/23 14:50 15 mg ONCE ONE Administration Methylprednisolone Sodium Succinate 125 mg 07/13/23 14:15 07/13/23 14:05 Methylprednisolone Sod Succ 125mg Vial IV 07/13/23 14:16 125 mg ONCE ONE Administration Sodium Chloride 10 ml 07/13/23 13:46 Sodium Chloride 0.9% 10ml Flush Syringe IV 08/12/23 13:45 NEEDED PRN Maintain IV Site ORDERS Category Date Time Status CXR --portable [XR chest portable] Stat Exams 07/13/23 13:45 Completed Complete Blood Count Auto Diff Stat Lab 07/13/23 13:40 Completed Comprehensive Metabolic Panel Stat Lab 07/13/23 13:40 Completed Troponin I Stat Lab 07/13/23 13:40 Completed Medical Decision Narrative: Patient with history and exam per above presenting for evaluation of Diagnoses considered include ED workup and treatment included: Labs were independently interpreted by me, significant for Imaging was independently visualized and interpreted by me, significant for . Please refer to radiology report for full details. My clinical impression at this time is most consistent with I discussed my clinical impression with patient and answered all questions. At this time, the evidence for any other entities in the differential is insufficient to warrant any further testing or ED observation. This was explained to the patient. The patient was advised that persistent or worsening symptoms require further evaluation. I confirmed the patient's understanding of this discussion. Alek: I assumed primary responsibility for this patient after signout from previous physician. On my evaluation, patient heart rate 73, still in a flutter. Initial EKG on independent rotation atrial flutter with rate in the 140s without acute ST elevations concerning for PA. QRS and QT intervals within normal limits. Independent interpretation of workup with negative CBC, nonactionable chemistry, negative troponin. Chest x-ray with bibasilar lung scarring and flattening of the diaphragms consistent with COPD. No acute disease. On my evaluation, patient breathing easier, feeling much better, opting for home-going, I feel this is appropriate. Because patient with increased cough, increased sputum, change in color and volume of sputum, meets criteria for outpatient antibiotic and prednisone use. This was sent to her pharmacy because patient at baseline without signs or symptoms of clinical decompensation, deemed appropriate for discharge. Results were relayed to patient who voiced understanding and were agreeable to outpatient management and follow up. I discussed my clinical impression with patient and answered all questions. At this time, the evidence for any other entities in the differential is insufficient to warrant any further testing or ED observation. This was explained as well. Advisory was given that persistent or worsening symptoms require further evaluation. I confirmed the understanding of this discussion. Critical Care <Chidi Becerril MD - Last Filed: 07/15/23 11:41> Critical Care Time Critical Care Time: No
--- OUTSIDE RECORDS SUMMARY | 2023-07-13 13:49 | XMS_ITS ---
Author Name Unknown Address [address] [place] [address] Phone Organization [facility] Address [address] [place] [address] Phone Care Team Providers Care Social Service Technician Name Role Phone Jose TAFOYA, Mamadou Ryan Unavailable [ ] Conditions or Problems No information available. Medications No information available. Medications Administered No information available. Allergies, Adverse Reactions, Alerts Allergy Name Reaction Description Start Date Severity Statu s Provider AMOXICILLIN Moderate Active Mamadou Garcia MD Results Date Name Value Unit Range Flag Description Office Visit: Office Visit: rm 2 HFU ORALTOBACUSE Never Tobacco smoking status SMOK STATUS Current every da y smoker Tobacco smoking status MEDS REVIEW Done Documenta tion of current medications (procedure) Plan of Care Type Date Detail Pending order CMP Pending order Sedimentation Ra te (ESR) Pending order C- reactive prot ein Pending order CBC with Differe ntial Pending order STAT Labs Procedures Code Procedure Name Date Entry Date CPT-47530 CMP CPT-92693 Sedimentation Rate (ESR) 202 04/14/05 CPT-74813 C- reactive protein [id number] CBC with Differential 2022 CPT-sl STAT Labs Vital Signs Date Name Value Unit Description BMI (Body Mass Index) 23.32 kg/m2 Bod y Mass Index (Ratio) Body Temperature 97.1 [degF] temperat ure E&M BP Diastolic 80 mm[Hg] blood pressu re, diastolic BP Systolic 130 mm[Hg] blood pressur e, systolic Heart Rate 72 /min pulse rate Height 71 [in_us] height E&M Respiratory Rate 16 /min respirat ory rate E&M Weight Measured 167.2 [lb_av] weight E& M Immunizations No information available. Advance Directives Directive Description Start Date NO ADVANCED MEDICAL DIRECTIVES AT THIS T [id number]
--- OUTSIDE RECORDS SUMMARY | 2023-07-13 13:49 | XMS_ITS ---
Author Name Unknown Address [address] [place] [address] Phone Organization [facility] Address [address] [place] [address] Phone Care Team Providers Care Route Sales Delivery Drivers Supervisor Name Role Phone Jose TAFOYA, Mamadou Ryan Unavailable [ ] Conditions or Problems No information available. Medications No information available. Medications Administered No information available. Allergies, Adverse Reactions, Alerts No information available. Results Date Name Value Unit Range Flag Description Office Visit: Office Visit:r m 1 MEDS REVIEW Done Documenta tion of current medications (procedure) ORALTOBACUSE Never Tobacco smoking status SMOK STATUS Current every da y smoker Tobacco smoking status Plan of Care No information available. Procedures No information available. Vital Signs Date Name Value Unit Description BMI (Body Mass Index) 22.23 kg/m2 Bod y Mass Index (Ratio) Body Temperature 97.8 [degF] temperat ure E&M BP Diastolic 68 mm[Hg] blood pressu re, diastolic BP Systolic 110 mm[Hg] blood pressur e, systolic Heart Rate 68 /min pulse rate Height 71 [in_us] height E&M Respiratory Rate 16 /min respirat ory rate E&M Weight Measured 159.4 [lb_av] weight E& M Immunizations No information available. Advance Directives No information available.
--- OUTSIDE RECORDS SUMMARY | 2023-07-13 13:49 | XMS_ITS ---
Author Name Unknown Address [address] [place] [address] Phone Organization [facility] Address [address] [place] [address] Phone Care Team Providers Care Yard Conductor Name Role Phone Eduard Redding MD [phone] Conditions or Problems No information available. Medications No information available. Medications Administered No information available. Allergies, Adverse Reactions, Alerts No information available. Results Date Name Value Unit Range Flag Description Office Visit: Office Visit:dianelys yanez 5 MEDS REVIEW Done Documenta tion of current medications (procedure) ORALTOBACUSE Never Tobacco smoking status SMOK STATUS Current every da y smoker Tobacco smoking status Plan of Care Type Date Detail Pending order CBC with Differe ntial Pending order CMP Pending order C- reactive prot ein Pending order Sedimentation Ra te (ESR) Procedures Code Procedure Name Date Entry Date [id number] CBC with Differential 2022 CPT-82898 CMP CPT-90811 C- reactive protein CPT-55362 Sedimentation Rate (ESR) 202 04/14/12 Vital Signs Date Name Value Unit Description BMI (Body Mass Index) 22.34 kg/m2 Bod y Mass Index (Ratio) Body Temperature 97.8 [degF] temperat ure E&M BP Diastolic 73 mm[Hg] blood pressu re, diastolic BP Systolic 126 mm[Hg] blood pressur e, systolic Heart Rate 65 /min pulse rate Height 71 [in_us] height E&M Respiratory Rate 16 /min respirat ory rate E&M Weight Measured 160.2 [lb_av] weight E& M Immunizations No information available. Advance Directives No information available.
--- OUTSIDE RECORDS SUMMARY | 2023-07-13 13:49 | XMS_ITS ---
Author Name Unknown Address [address] [place] [address] Phone Organization [facility] Address [address] [place] [address] Phone Care Team Providers Care Assistant Customer Service Manager Name Role Phone Eduard Redding MD [phone] Conditions or Problems No information available. Medications No information available. Medications Administered No information available. Allergies, Adverse Reactions, Alerts No information available. Results Date Name Value Unit Range Flag Description Office Visit: Office Visit: 5 MEDS REVIEW Done Documenta tion of current medications (procedure) ORALTOBACUSE Never Tobacco smoking status SMOK STATUS Current every da y smoker Tobacco smoking status Plan of Care Type Date Detail Pending order CBC with Differe ntial Pending order CMP Pending order C- reactive prot ein Pending order Sedimentation Ra te (ESR) Pending order CBC with Differe ntial Pending order CMP Pending order C- reactive prot ein Pending order Sedimentation Ra te (ESR) Procedures Code Procedure Name Date Entry Date [id number] CBC with Differential 2022 CPT-32816 CMP CPT-00185 C- reactive protein CPT-47266 Sedimentation Rate (ESR) 202 04/14/17 Vital Signs Date Name Value Unit Description BMI (Body Mass Index) 22.23 kg/m2 Bod y Mass Index (Ratio) Body Temperature 98.2 [degF] temperat ure E&M BP Diastolic 78 mm[Hg] blood pressu re, diastolic BP Systolic 122 mm[Hg] blood pressur e, systolic Heart Rate 76 /min pulse rate Height 71 [in_us] height E&M Respiratory Rate 16 /min respirat ory rate E&M Weight Measured 159.4 [lb_av] weight E& M Immunizations No information available. Advance Directives No information available.
--- OUTSIDE RECORDS SUMMARY | 2023-07-13 13:49 | XMS_ITS | Clinical Summary ---
Author Name Unknown Address [address] [place] [address] Phone Organization [facility] Address [address] [place] [address] Phone Care Team Providers Care Loss Prevention Consultant Name Role Phone Connor STEVEN, Alla Lacy Unavailable Conditions or Problems Problem Name Problem Code Onset Date Status Entry Date Provider Comment Standard Description Annotate Effusion, right shoulder M25.411 (ICD-10-CM ) 08/12 Active 08/12 Selma Adán Effusion, right shoulder Persistent atrial fibrillation 968232895 (SNOMED CT) 08/12 Active 08/12 Selma Adán Persistent atrial fibrillation [facility] (current) use of anticoagulant s, Eliquis Z79.01 (ICD-10-CM ) 08/12 Active 08/12 Selma Adán salvage 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 (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 Septic arthritis, right shoulder (identify bacteria) (B96 codes) M00.811 (ICD-10-CM ) 08/12 Active 08/12 Selma Adán Arthritis due to other bacteria, right shoulder Cellulitis, shoulder, right 664976130 (SNOMED CT) 08/12 Active 08/12 Selma Adán Cellulitis of upper limb COPD 20264879 (SNOMED CT) 08/12 Active 08/12 Selma Adán Chronic obstructive pulmonary disease Benign Essential Hypertension 27282795 (SNOMED CT) 08/12 Active 08/12 Selma Adán Benign hypertension Nicotine dependence, cigarettes 65102974 (SNOMED CT) 08/12 Active 08/12 Selma Adán Cigarette smoker Nicotine dependence 87521343 (SNOMED CT) 08/12 Inactive 08/12 Gypsy Mack Nicotine dependence Medications Medication Instructions Start Date Stop Date Generic Name ND Provider divina gary 2GM IV Q24hrs - [facility] ceftriaxone mario Ryan RN ONDANSETRON HCL 4 MG TABS Take 1 tablet by mouth Every 6 (Six) Hours As Needed for Nausea or Vomiting for up to 7 days ondansetron hcl [id number] Elsie June LEVOTHYROXINE SODIUM 50 MCG TABS Take 1 tablet by mouth Daily levothyroxine 14663312590 Elsie June NALOXONE HCL 4 MG/0.1ML LIQD Call 911. Don't prime. [place] in 1 nostril for overdose. Repeat in 2-3 minutes in other nostril if no or minimal breathing/respo nsiveness naloxone 01423555939 Elsie June GABAPENTIN 600 MG TABS Take 1 tablet by mouth Daily. gabapentin 01424869658 Elsie June IRBESARTAN 75 MG TABS Take 1 tablet by mouth Daily irbesartan 45887544929 Elsie June OXYCODONE HCL 5 MG TABS Take 1 tablet by mouth Every 4 (Four) Hours As Needed for Moderate Pain oxycodone 31879348598 Elsie June PANTOPRAZOLE SODIUM 40 MG TBEC Take 1 tablet by mouth Daily pantoprazole 13415007329 Elsie June VENTOLIN HFA 108 (90 Base) MCG/ACT AERS Inhale 2 puffs Every 4 (Four) Hours As Needed for Wheezing or Shortness of Air. albuterol sulfate 29868553444 Elsie June SYMBICORT 160-4.5 MCG/ACT AERO Inhale 2 puffs 2 (Two) Times a Day budesonide-formo terol 47759201900 Elsie June FUROSEMIDE 20 MG TABS Take 1 tablet by mouth Daily. furosemide 22455603631 Elsie June ASPIRIN 81 MG TBEC Take 1 tablet by mouth Daily aspirin 09449477352 Elsie June ATORVASTATIN CALCIUM 40 MG TABS Take 1 tablet by mouth Every Night. atorvastatin 30346536990 Elsie June ALBUTEROL SULFATE 1.25 MG/3ML NEBU 3 mL Every 6 (Six) Hours As Needed for Wheezing or Shortness of Air albuterol sulfate 87678672897 Elsie June apixaban 5 mg tablet Take 1 tablet by mouth 2 (Two) Times a Day. HOLD 48 HOURS PRIOR TO SURGERY apixaban Elsie June CITALOPRAM HYDROBROMIDE 10 MG TABS Take 1 tablet by mouth Daily citalopram 40765383196 Elsie June DULOXETINE HCL 30 MG CPEP Take 1 capsule by mouth Daily. duloxetine 06755500148 Elsie June FAMOTIDINE 40 MG TABS Take 1 tablet by mouth 2 (Two) Times a Day. famotidine 38062540637 Elsie June DICLOFENAC SODIUM ER 100 MG [id number] Take 75 mg by mouth 2 (Two) Times a Day diclofenac sodium 18736497379 Elsie June DILTIAZEM HCL ER BEADS 240 MG [id number] Take 1 capsule by mouth 2 (Two) Times a Day diltiazem hcl 11945618994 Elsie June ceftriaxone recon soln 2GM IV Q24hrs - [facility] ceftriaxone recon soln Mimi Lopez Medications Administered No information available. Allergies, Adverse Reactions, Alerts Allergy Name Reaction Description Start Date Severity Status Provider AMOXICILLIN Moderate Active Mamadou Garcia MD PENICILLIN V POTASSIUM Moderate Active Elsie June CODEINE SULFATE Confusion Moderate Active Cou rtfatmata June ACETAMINOPHEN Upset stomach Moderate Active C ourtfatmata June Results Date Name Value Unit Range Flag Description Office Visit: Office Visit:r m 1 MEDS REVIEW Done Documenta tion of current medications (procedure) ORALTOBACUSE Never Tobacco smoking status SMOK STATUS Current every day smoker Tobacco smoking status Lab Report: CBC WITH AUTO DI FFERENTIAL ZZ-GE-[id number] 0.0 /100 WBC 0.0-0.2 GE use only - for [employer] import when terms are not otherwise specified IMMATUREGRAN 0.01 10*3/MM3 0.00-0.05 Immature granulocytes [#/volume] in Blood BASO# 0.12 10*3/mm3 0.00-0.20 Basophils [#/vol ume] in Blood EOS ABSLT 1.05 10*3/uL 0.00-0.40 H Eosinophi ls [#/volume] in Blood MONOSCT AUTO 1.00 10*3/uL 0.10-0.90 H Monocy collette [#/volume] in Blood by Automated count LYMPHCT AUTO 2.84 10*3/mm3 0.70-3.10 Lymph ocytes [#/volume] in Blood by Automated count ABS NEUTROPH 3.82 10*3/uL 1.70-7.00 Neutro phils [#/volume] in Blood IMM GRANU % 0.1 % 0.0-0.5 Immature granulocytes/100 leukocytes in Blood % EOS AUTO 11.9 % 0.3-6.2 H Eosinophil s/100 leukocytes in Blood by Automated count MONOCYTE % 11.3 % 5.0-12.0 Monocytes /100 leukocytes in Blood by Automated count LYMPHOCY BF 32.1 % 19.6-45.3 lymphoc ytes as percent of body fluid leukocytes NEUTROP BF 43.2 % 42.7-76.0 Neutroph ils/100 leukocytes in Body fluid PLATELETS 318 10*3/mm3 140-450 Platelets [#/volume] in Blood by Automated count RDW_ 15.5 12.3-15.4 H RDW, no uni ts MCHC 32.6 G/DL 31.5-35.7 MCHC [Mass/ volume] by Automated count MCH 31.1 pg 26.6-33.0 MCH [Entiti c mass] by Automated count MCV 95.4 fL 79.0-97.0 MCV [Entiti c volume] by Automated count HCT 37.1 % 34.0-46.6 Hematocrit [Volume Fraction] of Blood by Automated count HGB 12.1 g/dL 12.0-15.9 Hemoglobin [Mass/volume] in Blood RBC 3.89 10*6/mm3 3.77-5.28 Erythrocyt es [#/volume] in Blood by Automated count WBC 8.84 10*3/mm3 3.40-10.8 0 Leukocytes [#/volume] in Blood by Automated count Lab Report: SEDIMENTATION RA TE ESR 42 mm/h 0-30 H Erythrocyte sedimentation rate by Westergren method Lab Report: C-REACTIVE PROTE IN CRP 1.17 mg/dL 0.00-0.50 H C reactive protein [Mass/volume] in Serum or Plasma Lab Report: COMPREHENSIVE ME TABOLIC PANEL ANIONGAP 10.0 mmol/L 5.0-15.0 anion gap, serum BUN/CREAT 21.5 7.0-25.0 Urea nitrogen/Creatinine [Mass Ratio] in Serum or Plasma BILI TOTAL 0.3 mg/dL 0.0-1.2 Bilirubin. total [Mass/volume] in Serum or Plasma ALK PHOS 123 U/L 39-117 H Alkaline mango sphatase [Enzymatic activity/volume] in Blood SGOT (AST) 19 U/L 1-32 Aspartate aminotransferase [Enzymatic activity/volume] in Serum or Plasma SGPT (ALT) 14 U/L 1-33 Alanine aminotransferase [Enzymatic activity/volume] in Serum or Plasma ALBUMIN 3.8 g/dL 3.5-5.2 Albumin [Mass/volume] in Serum or Plasma PROTEIN, TOT 7.3 g/dL 6.0-8.5 Protein [Mass/volume] in Serum or Plasma CALCIUM 8.8 mg/dL 8.6-10.5 Calcium [Moles/volume] in Serum or Plasma CO2 26.0 mmol/L 22.0-29.0 Carbon diox chica, total [Moles/volume] in Venous blood CHLORIDE 102 mmol/L 98-107 Chloride [Moles/volume] in Serum or Plasma POTASSIUM 3.9 mmol/L 3.5-5.2 Potassium [Moles/volume] in Serum or Plasma SODIUM 138 mmol/L 136-145 Sodium [Moles/volume] in Serum or Plasma CREATININE 0.65 mg/dL 0.57-1.00 Creatini ne [Mass/volume] in Serum or Plasma BUN 14 mg/dL 6-20 Urea nitrogen [Mass/volume] in Serum or Plasma GLUCOSE SER 89 mg/dL 65-99 Glucose [Mass/volume] in Serum or Plasma Lab Report: CBC With Differe ntial/Platelet, Comp. Metabolic Panel (14), ... A/G RATIO 1.1 g/dL Albumin/Clarice bulin [Mass Ratio] in Serum or Plasma GLOBULIN 3.5 Globulin [Mass/volume] in Serum BASOPHIL % 1.4 % 0.0-1.5 Basophils/ 100 leukocytes in Blood by Manual count LYMPHS % 32.1 % 19.6-45.3 Lymphocyte s/100 leukocytes in Blood by Automated count PMN % 43.2 % 42.7-76.0 Neutrophils /100 leukocytes in Blood by Automated count RDW 15.5 % 12.3-15.4 H Erythrocyte distribution width [Ratio] by Automated count Plan of Care Type Date Detail Pending [...] order Sedimentation Ra te (ESR) Pending order STAT Labs Pending order CMP Pending order Sedimentation Ra te (ESR) Pending order C- reactive prot ein Pending order CBC with Differe ntial Pending order STAT Labs Procedures Code Procedure Name Date Entry Date [id number] CBC with Differential 2022 CPT-32141 CMP CPT-58253 C- reactive protein CPT-16916 Sedimentation Rate (ESR) 202 04/14/17 [id number] CBC with Differential 2022 CPT-39233 CMP CPT-40526 C- reactive protein CPT-06950 Sedimentation Rate (ESR) 202 04/14/12 CPT-sl STAT Labs CPT-51779 CMP CPT-98688 Sedimentation Rate (ESR) 202 04/14/05 CPT-82707 C- reactive protein [id number] CBC with Differential 2022 CPT-sl STAT Labs [...]
[2023-07-13 13:59] LABS: Chloride 101 mmol/L (98-107); Sodium 141 mmol/L (136-145)
--- NOTE | 2023-07-13 13:59 | PC.NURSE ---
RAD at for CXR
[2023-07-13 14:01] LABS: Basophils # 0.1 K/mm3 (0-0.2); Basophils % 1.5 % (0.1-2.0); Eosinophils # 0.4 K/mm3 (0.0-0.4); Eosinophils % 3.9 % (0.1-12.0); Hematocrit 46.4 % (37.0-47.0); Hemoglobin 14.8 g/dL (12.2-16.2); Lymphocytes # 2.4 K/mm3 (0.7-4.5); Lymphocytes % 24.7 % (10-50); Mean Corpuscular HGB Conc 31.8 g/dL (31.8-35.4); Mean Corpuscular Hemoglobin 29.8 pg (27.0-31.2); Mean Corpuscular Volume 93.5 fl (81-99); Mean Platelet Volume 7.6 fl (7.4-10.4); Monocytes # 0.6 K/mm3 (0.1-1.0); Monocytes % 6.5 % (1.7-9.3); Neutrophils # 6.1 K/mm3 (1.8-7.8); Neutrophils % 63.5 % (37.0-80.0); Platelet Count 374 K/mm3 (142-424); Red Blood Count 4.97 M/mm3 (4.20-5.40); Red Cell Distribution Width 16.6 % (11.5-17.5); White Blood Count 9.6 K/mm3 (4.8-10.8)
[2023-07-13 14:02] LABS: Alanine Aminotransferase 41 U/L (12-78); Albumin Level 4.8 g/dl (3.5-5.0); Albumin/Globulin Ratio 1.1 (1.1-1.8); Alkaline Phosphatase 135 U/L (38-126); Aspartate Amino Transferase 48 U/L (14-36); Bilirubin,Total 0.6 mg/dl (0.2-1.3); Blood Urea Nitrogen 22 mg/dl (7-17); Carbon Dioxide 30 mmol/L (22.0-30.0); Creatinine Clearance Estimated 81 mL/min (50-200); Estimated Glomerular Filt Rate 73 ml/min (>60); GFR (African American) 89 ML/MIN (>60); Globulin 4.4 g/dL (1.3-3.2); Total Protein,Serum 9.2 g/dl (6.3-8.2)
[2023-07-13 14:03] LABS: Calcium 9.5 mg/dl (8.4-10.2); Glucose 95 mg/dl (74-100)
[2023-07-13] MEDS: 0.9 % SODIUM CHLORIDE 1000ML 1,000 ML 999 ML IV (14:03)
[2023-07-13] MEDS: MAGNESIUM SULFATE IN WATER 2 GM/50 ML PIGGYBACK IV (14:03)
[2023-07-13] MEDS: IPRATROPIUM/ALBUTEROL 3 ML NEB IH ×2 (14:04→14:47)
[2023-07-13] MEDS: METHYLPREDNISOLONE SOD SUCC 125MG VIAL 125 MG IV (14:05)
[2023-07-13 14:22] LABS: Troponin I < 0.01 ng/ml (0.00-0.034)
[2023-07-13] MEDS: KETOROLAC 30MG/ML VIAL 15 MG IV (15:04)
== END 2023-07-13 15:54 | disposition home or self-care (01) ==
PROVIDERS: Emergency Provider Emergency Medicine; PCP Physician Assistant
DX: J44.1 Chronic obstructive pulmonary disease with (acute) exacerbation (principal); R07.1 Chest pain on breathing; R06.02 Shortness of breath; I48.92 Unspecified atrial flutter; F17.210 Nicotine dependence, cigarettes, uncomplicated; I11.9 Hypertensive heart disease without heart failure; I25.10 Atherosclerotic heart disease of native coronary artery without angina pectoris; E03.9 Hypothyroidism, unspecified; E78.5 Hyperlipidemia, unspecified; Z99.81 Dependence on supplemental oxygen
CPT/HCPCS: 71045; 80053; 84484; 85025; 93005; 96365; 96375; 99285; J3475

== ENCOUNTER 2023-07-18 12:51 | Observation (INO) | payer MEDICAID, SELFPAY ==
[2023-07-18] VITALS (12 sets, daily range): BP systolic 110–137; BP diastolic 60–96; PULSE 52–153; RESP 12–26; TEMP 36.6–36.7; O2SAT 92–100; BMI 21.9; BMI 21.7
--- NOTE | 2023-07-18 12:50 | ECG_ITS ---
APPROVED REPORT Exam: Resting ECG HR:154 bpm ECG Measurements Heart Rate 154 AXES QRSd 150 QRS 75 QT 302 T 0 QTc 389 Conclusion ATRIAL FLUTTER/TACHYCARDIA WITH RAPID VENTRICULAR RESPONSE WITH ABERRANT CONDUCTION OR VENTRICULAR PREMATURE COMPLEXES INTRAVENTRICULAR CONDUCTION DELAY [130+ ms QRS DURATION] CRITICAL TEST RESULT Electronically signed by : WESTON WAGNER, 07/18/2023 14:19:30
--- NOTE | 2023-07-18 12:55 | ECG_ITS ---
APPROVED REPORT Exam: Resting ECG HR:153 bpm ECG Measurements Heart Rate 153 AXES MT 142 P 267 QRSd 150 QRS 85 QT 315 T 0 QTc 402 Conclusion ECTOPIC ATRIAL TACHYCARDIA, POSSIBLE ATRIAL FLUTTER INTRAVENTRICULAR CONDUCTION DELAY [130+ ms QRS DURATION] CRITICAL TEST RESULT Atrial flutter with rate dependent bundle branch block, no definitive ST elevation Electronically signed by : WESTON WAGNER, 07/18/2023 14:19:12
--- NOTE | 2023-07-18 12:56 | CT_ITS ---
PROCEDURE INFORMATION: Exam: CTA Chest With Contrast Exam date and time: 07/18/2023 1:35 PM Age: 62 years old Clinical indication: Pain; Chest pressure; Additional info: Cp to back hr 150 TECHNIQUE: Imaging protocol: Computed tomographic angiography of the chest with contrast. Exam focused on the arteries. 3D rendering (Not supervised by radiologist): MIP and/or 3D reconstructed images were created by the technologist. Radiation optimization: All CT scans at this facility use at least one of these dose optimization techniques: automated exposure control; mA and/or kV adjustment per patient size (includes targeted exams where dose is matched to clinical indication); or iterative reconstruction. Contrast material: ISOVUE 370; Contrast volume: 100 ml; Contrast route: INTRAVENOUS (IV); COMPARISON: CT ANGIO CHEST 04/10/2023 5:42 PM FINDINGS: Pulmonary arteries: No evidence of pulmonary embolus to the segmental level. Aorta: No aneurysm of the aorta. No dissection of the aorta. Lungs: Moderate panlobular emphysematous changes. Opacities in the right base may represent atelectasis or pneumonia.. Pleural spaces: Unremarkable. No pneumothorax. No pleural effusion. Heart: Unremarkable. No cardiomegaly. No pericardial effusion. Lymph nodes: Unremarkable. No enlarged lymph nodes. Gallbladder and bile ducts: Cholecystectomy Bones/joints: Right total shoulder replacement Soft tissues: Unremarkable. IMPRESSION: 1. No evidence of pulmonary embolus to the segmental level. 2. No aneurysm of the aorta. 3. No dissection of the aorta. 4. Opacities in the right base may represent atelectasis or pneumonia.. COMMENTS: The presence of pulmonary emphysema on CT is an independent risk factor for lung cancer. In the absence of a history or active diagnosis of lung cancer, it is recommended that this patient with emphysema be evaluated for enrollment in a low dose CT lung cancer screening program.
--- NOTE | 2023-07-18 12:59 | HMH.EDCP ---
Discharge Plan Disposition Patient Disposition: Admitted Prescriptions Prescriptions: No Action gabapentin 600 mg tablet 600 mg PO DAILY Patient Comments: TAKE 1 TABLET BY MOUTH ONCE DAILY FOR PAIN duloxetine 30 mg capsule,delayed release(DR/EC) 30 mg PO DAILY pantoprazole 40 mg tablet,delayed release (DR/EC) 40 mg PO DAILY Qty: 90 3RF diclofenac sodium 75 mg tablet,delayed release (DR/EC) 75 mg PO ONCE lidocaine [Lidoderm] 5 % adhesive patch,medicated 1 patch topical DAILY meclizine 25 mg tablet,chewable 25 mg PO DAILY PRN furosemide 20 mg tablet 40 mg PO DAILY Eliquis 5 mg tablet 5 mg PO BID Qty: 60 5RF aspirin 81 mg tablet,delayed release (DR/EC) 81 mg PO DAILY Qty: 100 3RF atorvastatin 40 mg tablet 40 mg PO HS Qty: 30 3RF diltiazem HCl 240 mg capsule,extended release 24 hr 240 mg PO BID Qty: 60 5RF famotidine 40 mg tablet 40 mg PO BID Qty: 60 5RF irbesartan 75 mg tablet 75 mg PO DAILY Qty: 30 3RF metoprolol succinate [Toprol XL] 25 mg tablet extended release 24 hr 25 mg PO DAILY Qty: 30 5RF Jardiance 10 mg tablet See Rx Instructions .ROUTE .COMPLEX Qty: 90 3RF Dose Instruction: TAKE 1 TABLET BY MOUTH DAILY Rx Instructions: TAKE 1 TABLET BY MOUTH DAILY albuterol sulfate 1.25 MG/3 ML solution for nebulization 1.25 mg inhalation Q4HP PRN (Reason: Shortness Of Breath) albuterol sulfate 8.5 GM HFA aerosol inhaler 1 puff inhalation Q4HP PRN (Reason: Shortness Of Breath) budesonide-formoterol 10.2 GM HFA aerosol inhaler 2 puffs inhalation BID doxycycline hyclate 100 mg capsule 100 mg PO BID 5 Days Qty: 10 0RF prednisone 20 mg tablet 40 mg PO DAILY 5 Days Qty: 10 0RF citalopram 10 mg tablet 10 mg PO DAILY diclofenac sodium 1 % gel 1 ea TOPICAL QIDP PRN (Reason: Pain) levothyroxine 50 mcg tablet 50 mcg PO DAILY mirtazapine 15 mg tablet 15 mg PO HS Referrals Follow up/Referrals: Provider,Referral, MD [Primary Care Provider] - See instructions Clinical Impressions Clinical Impression: COPD exacerbation, Pneumonia, Atrial flutter with rapid ventricular response Discharge ED Provider: Richard Boggs HPI General Chief Complaint: Shortness of Breath/Dyspnea Stated Complaint: soa Time Seen by Provider: 07/18/23 12:52 History of Present Illness HPI narrative: Patient is a 62-year-old female with past medical history of paroxysmal atrial fibrillation on anticoagulation, COPD on intermittent oxygen at home not continuous oxygen who presents to the emergency department for evaluation of chest pain. Patient has had shortness of breath since Wednesday with intermittent cough, she has had substernal chest pain radiating to her back since . Due to persistent symptoms she called EMS, 4 L nasal cannula in the field to get oxygen saturations greater than 90% and she presents here for continued evaluation. Related Data Home Medications Medication Instructions Recorded Confirmed duloxetine 30 mg capsule,delayed 30 mg PO DAILY Depression 11/04/20 06/11/22 release gabapentin 600 mg tablet 600 mg PO DAILY Pain 11/04/20 06/11/22 albuterol sulfate 1.25 mg/3 mL 1.25 mg inhalation Q4HP PRN 01/09/21 06/11/22 solution for nebulization Shortness Of Breath albuterol sulfate 90 mcg/actuation 1 puff inhalation Q4HP PRN 01/10/21 06/11/22 aerosol inhaler Shortness Of Breath budesonide-formoterol HFA 160 2 puffs inhalation BID Breathing 01/10/21 06/11/22 mcg-4.5 mcg/actuation aerosol problems inhaler citalopram 10 mg tablet 10 mg PO DAILY Depression 03/01/22 06/11/22 diclofenac sodium 1 % topical gel 1 ea topical QIDP PRN Pain 03/01/22 06/11/22 levothyroxine 50 mcg tablet 50 mcg PO DAILY Hypothyroidism 03/01/22 06/11/22 mirtazapine 15 mg tablet 15 mg PO HS sleep 03/01/22 06/11/22 diclofenac sodium 75 mg 75 mg PO ONCE 04/13/23 04/13/23 tablet,delayed release furosemide 20 mg tablet 40 mg PO DAILY Shortness Of Breath 04/13/23 04/13/23 lidocaine 5 % topical patch 1 patch topical DAILY 04/13/23 04/13/23 (Lidoderm) meclizine 25 mg chewable tablet 25 mg PO DAILY PRN 04/13/23 04/13/23 Previous Rx's Medication Instructions Recorded pantoprazole 40 mg tablet,delayed 40 mg PO DAILY GERD #90 tabs 03/04/21 release apixaban 5 mg tablet (Eliquis) 5 mg PO BID #60 tabs 01/28/23 aspirin 81 mg tablet,delayed 81 mg PO DAILY #100 tabs 01/28/23 release atorvastatin 40 mg tablet 40 mg PO HS Cholesterol #30 tabs 01/28/23 diltiazem HCl 240 mg capsule,24 240 mg PO BID #60 caps 01/28/23 hr,extended release famotidine 40 mg tablet 40 mg PO BID acid reflux #60 tabs 01/28/23 irbesartan 75 mg tablet 75 mg PO DAILY #30 tabs 01/28/23 metoprolol succinate 25 mg 25 mg PO DAILY #30 tabs 06/07/23 tablet,extended release 24 hr (Toprol XL) doxycycline hyclate 100 mg capsule 100 mg PO BID 5 days #10 caps 07/13/23 prednisone 20 mg tablet 40 mg (2 x 20 mg) PO DAILY 5 days 07/13/23 #10 tabs empagliflozin 10 mg tablet See Rx Instructions .Route 07/16/23 (Jardiance) .COMPLEX #90 tabs Allergies Allergy/AdvReac Type Severity Reaction Status Date / Time codeine Allergy Mild Nausea Verified 04/13/23 15:17 penicillin G [PENICILLIN G] Allergy Mild I-RASH/NV Verified 04/13/23 15:17 acetaminophen [ACETAMINOPHEN] AdvReac Mild NOT Verified 04/13/23 15:17 ALLERGIC. NEED TO WATCH DUE TO LIVER [facility] Disclaimer: The information contained in this section may have been updated after the patient was seen, as this information can be updated by other users. Medical History (Updated 07/18/23 @ 14:37 by Richard Boggs MD) Dyspnea Afib Sinus bradycardia Coronary artery disease Chronic, continuous use of opioids Right rotator cuff tear Hypothyroidism Atrial fibrillation/flutter Pulmonary hypertension Hepatitis C Tobacco dependence (HFpEF) heart failure with preserved ejection fraction Hyperlipidemia Hypertension COPD (chronic obstructive pulmonary disease) Surgical History History of hysterectomy History of surgery on right wrist History of mandibular surgery History of left heart catheterization History of cholecystectomy S/P rotator cuff repair H/O splenectomy History of cardioversion Family History Mother Stroke Father Coronary artery disease Social History Smoking Status: Current every day smoker tobacco type: cigarettes packs per day: 1 years smoked: 40 second hand exposure: Yes alcohol intake: never substance use type: denies use current occupational status: unemployed and disabled Travel in the last 8 weeks: Inside the [place] household members: none housing: house lives independently: Yes marital status: single number of children: 3 current occupation: Disabled caffeine: Yes ROS Obtained: Yes Systems reviewed as appropriate & no additional complaints except as documented Physical Exam General General appearance: alert and in no apparent distress Head Head exam: atraumatic and normocephalic Eye Eye exam: Present PERRL and EOMI ENT ENT exam: Present mucous membranes moist Neck Neck exam: Present normal inspection Chest Chest inspection: Present normal inspection and symmetric chest wall rise Respiratory Respiratory exam: Present wheezes; Absent normal lung sounds bilaterally or respiratory distress Cardiovascular Cardiovascular exam: Present normal rhythm and tachycardia Abdominal Exam Abdominal exam: Present soft; Absent tenderness Extremities Exam Extremities exam: Present normal inspection Neurological Exam Neurological exam: Present alert Psychiatric Psychiatric exam: Present normal affect Skin Skin exam: Present warm and dry HEART Score HEART Score HEART Score assessment performed?: Yes History (anamnesis): Highly suspicious ECG: Non-specific disturbance Age: 45-65 years Risk factors: 1-2 risk factors Troponin: </= normal limit HEART Score: 5 Critical Care Critical Care Time Critical Care Time: Yes Attestation: On 07/18/23, the high probability of a clinically significant, sudden or life threatening deterioration of the following system(s) required my full and direct attention, intervention and personal management. The time I documented below is in addition to time spent performing reported procedures but includes the following listed in this critical care notation. Total Time Total Critical Care Time: 40 Medical Decision Making Alberto Inquiry Pt receiving controlled substance: No Vital Signs Vital Signs: 07/18/23 12:52 07/18/23 13:00 07/18/23 13:50 Temperature 98.0 F Temperature Source Oral Pulse Rate 153 H 70 Pulse Rate [Left Radial] 58 L Respiratory Rate 19 12 Blood Pressure 137/96 H 110/80 Blood Pressure [Right Arm] 137/96 H Blood Pressure Mean [Right Arm] 109 02 Sat by Pulse Oximetry 92 L 94 L 95 Oxygen Delivery Method Nasal Cannula Room Air Oxygen Flow Rate (LPM) 3 07/18/23 14:01 Temperature Temperature Source Pulse Rate 52 L Pulse Rate [Left Radial] Respiratory Rate 26 H Blood Pressure 124/73 Blood Pressure [Right Arm] Blood Pressure Mean [Right Arm] 02 Sat by Pulse Oximetry 95 Oxygen Delivery Method Room Air Oxygen Flow Rate (LPM) Lab Data Labs: Lab Results 07/18/23 13:05: WBC 15.3 H, RBC 4.43, Hgb 12.6, Hct 41.3, MCV 93.2, MCH 28.4, MCHC 30.5 L, RDW 16.4, Plt Count 366, MPV 8.6, Neut % (Auto) 78.5, Lymph % (Auto) 12.1, Burnett % (Auto) 8.0, Eos % (Auto) 0.8, Baso % (Auto) 0.6, Neut # (Auto) 12.0 H, Lymph # (Auto) 1.9, Burnett # (Auto) 1.2 H, Eos # (Auto) 0.1, Baso # (Auto) 0.1, Total Counted 100, Neutrophils % (Manual) 59, Band Neutrophils % 20.0 H, Lymphocytes % (Manual) 12, Monocytes % (Manual) 8, Eosinophils % (Manual) 1, Platelet Estimate Normal, Anisocytosis 1+, Spherocytes 1+, Target Cells 1+, Sodium 140, Potassium 3.8, Chloride 108 H, Carbon Dioxide 28, Anion Gap 7.8, BUN 17, Creatinine 0.70, Estimated Creat Clear 96, Estimated GFR 85, Est GFR ( Amer) 103, Glucose 95, Calcium 8.8, Total Bilirubin 0.5, AST 35, ALT 48, Alkaline Phosphatase 125, Troponin I < 0.01, Total Protein 6.8 D, Albumin 3.6, Globulin 3.2, Albumin/Globulin Ratio 1.1, Free T4 1.92 07/18/23 13:28: VBG pH 7.38, VBG pCO2 40.9, VBG pO2 64.3 H, VBG HCO3 23.7, VBG Total CO2 24.9, VBG O2 Saturation 92.9 H, VBG Base Excess -1.5, VBG Lactic Acid 1.5 07/18/23 13:05 07/18/23 13:05 Response Orders (Tests/Meds): ED MEDICATIONS Generic Name Dose Route Start Last Admin Trade Name Freannette PRN Reason Stop Dose Admin Azithromycin 500 mg/ Sodium 250 mls @ 250 mls/hr 07/18/23 13:00 07/18/23 14:02 Chloride IV 07/28/23 12:59 250 mls/hr Q24H AINSLEY Administration Diltiazem HCl 100 mg/ Sodium 100 mls @ 5 mls/hr 07/18/23 14:15 07/18/23 14:37 Chloride IV 08/17/23 14:14 5 mg/hr .Q20H AINSLEY 5 mls/hr Administration Protocol 5 MG/HR Ceftriaxone Sodium 1 gm/ 50 mls @ 100 mls/hr 07/18/23 14:30 07/18/23 15:17 Sodium Chloride IV 07/28/23 14:29 100 mls/hr Q24H AINSLEY Administration Sodium Chloride 10 ml 07/18/23 13:35 07/18/23 13:36 Sodium Chloride 0.9% 10ml Syr (Rad Only) IV 08/17/23 13:34 10 ml NEEDED PRN Administration Maintain IV Site Discontinued Medications Generic Name Dose Route Start Last Admin Trade Name Jackson PRN Reason Stop Dose Admin Acetaminophen 1,000 mg 07/18/23 12:56 07/18/23 13:25 Acetaminophen 1,000mg/100ml Vial IV 07/18/23 12:57 1,000 mg ONCE ONE Administration Albuterol/Ipratropium 3 ml 07/18/23 12:56 07/18/23 13:23 Ipratropium/Albuterol 3 Ml Neb IH 07/18/23 12:57 3 ml ONCE ONE Administration Diltiazem HCl 20 mg 07/18/23 13:53 07/18/23 14:03 Diltiazem 25mg/5ml Vial IV 07/18/23 13:54 20 mg ONCE ONE Administration Lactated Ringer's 1,000 mls @ 999 mls/hr 07/18/23 12:56 07/18/23 13:49 Lactated Ringer's 1000 Ml Bag IV 07/18/23 13:56 Not Given .Q1H1M ONE Iopamidol 100 ml 07/18/23 13:35 07/18/23 13:36 Iopamidol-370 (76%);100ml Bottle IV 07/18/23 13:36 100 ml ONCE ONE Administration Methylprednisolone Sodium Succinate 125 mg 07/18/23 12:56 07/18/23 13:24 Methylprednisolone Sod Succ 125mg Vial IV 07/18/23 12:57 125 mg ONCE ONE Administration Morphine Sulfate 4 mg 07/18/23 12:56 07/18/23 13:24 Morphine 4mg/Ml Syringe IV 07/18/23 12:57 4 mg ONCE ONE Administration Sodium Chloride 50 ml 07/18/23 13:35 07/18/23 13:36 0.9 % Sodium Chloride 50 Ml Vial IV 07/18/23 13:36 50 ml ONCE ONE Administration ORDERS Category Date Time Status CT angio chest - dissection Stat Cat Scan 07/18/23 12:56 Completed Cardiology Consult [Consult to Cardiology] [CONS] Cons 07/18/23 14:17 Active Routine POCUS Point of Care (ER Only) Stat Exams 07/18/23 13:04 Ordered CBC w/Auto Diff [Complete Blood Count Auto Diff] Stat Lab 07/18/23 13:05 Completed CMP [Comprehensive Metabolic Panel] Stat Lab 07/18/23 13:05 Completed Free T4 (Free Thyroxine) Stat Lab 07/18/23 13:05 Completed Trop I [Troponin I] Stat Lab 07/18/23 13:05 Completed Troponin I Q3H Lab 07/18/23 17:30 Ordered Troponin I Q3H Lab 07/18/23 20:30 Ordered Blood Culture Stat Micro 07/18/23 13:05 Received VBG [Venous Blood Gas] Stat RT 07/18/23 13:28 Completed ECG Data Tracing #1: ECG Narrative: Independently interpreted by me, rate is 153, atrial flutter with rate dependent left bundle branch block, no definitive ST elevation in anatomical contiguous leads, QTc 402. Tracing #2: ECG Narrative: Independently interpreted by me, rate is 76, rhythm is regular, axis is normal, atrial flutter with 4-1 block, no ST elevation in anatomical contiguous leads. MDM Narrative Medical Decision Narrative: In summary patient is a 62-year-old female with past medical history described above who presents emergency department for evaluation of chest pain shortness of breath. Patient is hemodynamically stable upon arrival however significant tachycardia heart rate in the low 150s concerning for atrial flutter with bundle branch block. Patient will undergo emergent CTA chest followed by full cardiac workup with hematologic labs, EKGs, serial troponins. [id number] ultrasound at bedside shows significant rate which is decreasing the ejection fraction. Crystalloid resuscitation was initially ordered but will be canceled now given that patient appears well-perfused combined with this decreased ejection fraction that is likely rate dependent. EKG shows atrial flutter with rapid ventricular response with rate dependent bundle branch block after discussing the case with Dr. Toscano who helped discern these findings. CT imaging informally interpreted by me, no large dissection, no saddle pulmonary embolism, there is hazy opacities at the base on the right however no dense lobar pneumonia. Repeat auscultation shows improved air movement which was not significantly hindered however did have some scant wheezing. Patient will be started on diltiazem drip after a bolus was administered. Patient is already anticoagulated. Hematologic labs have leukocytosis in the setting of steroid administration at home, compensated acid-base status, no JAYJAY or critical electrolyte abnormality. After diltiazem bolus administered patient had robust response, now in atrial flutter with 4:1 block, no rate dependent bundle branch block. CTA shows opacities in right lung base atelectasis versus pneumonia. Given cough and continuous oxygen requirement ceftriaxone will be added. Aggressive volume resuscitation for sepsis is deferred given that patient appears euvolemic and had decreased ejection fraction with rapid ventricular response described above. No evidence of aneurysm, dissection, PE on formal radiology read. Initial troponin undetectably low. The case was then discussed with hospital medicine regarding management and patient will be admitted to their service for continued evaluation at this time.
[2023-07-18] MEDS: IPRATROPIUM/ALBUTEROL 3 ML NEB IH (13:23)
[2023-07-18] MEDS: MORPHINE 4MG/ML SYRINGE 4 MG IV (13:24)
[2023-07-18] MEDS: METHYLPREDNISOLONE SOD SUCC 125MG VIAL 125 MG IV (13:24)
[2023-07-18] MEDS: ACETAMINOPHEN 1,000MG/100ML VIAL 1000 MG IV (13:25)
--- NOTE | 2023-07-18 13:28 | PC.NURSE ---
respiratory aware of vbg order
[2023-07-18 13:34] LABS: Lactate Venous 1.5 mmol/L (0.4-2.0); VBG Base Excess -1.5 mmol/L (-2.4-2.3); VBG HCO3 23.7 mmol/L (23-30); VBG Oxygen Saturation 92.9 % (50-70); VBG PCO2 40.9 mmol/L (35-51); VBG PH 7.38 mmol/L (7.31-7.41); VBG PO2 64.3 mmol/L (28-40); VBG Total CO2 24.9 mmol/L (23-27)
[2023-07-18] MEDS: SODIUM CHLORIDE 0.9% 10ML SYR (RAD ONLY) 10 ML IV (13:36)
[2023-07-18] MEDS: 0.9 % SODIUM CHLORIDE 50 ML VIAL IV (13:36)
[2023-07-18] MEDS: IOPAMIDOL-370 (76%);100ML BOTTLE 100 ML IV (13:36)
[2023-07-18 13:39] LABS: Chloride 108 mmol/L (98-107); Potassium 3.8 mmoL/L (3.5-5.1); Sodium 140 mmol/L (136-145)
[2023-07-18 13:42] LABS: Alanine Aminotransferase 48 U/L (12-78); Albumin Level 3.6 g/dl (3.5-5.0); Albumin/Globulin Ratio 1.1 (1.1-1.8); Alkaline Phosphatase 125 U/L (38-126); Anion Gap 7.8 mEq/L (5-15); Aspartate Amino Transferase 35 U/L (14-36); Bilirubin,Total 0.5 mg/dl (0.2-1.3); Blood Urea Nitrogen 17 mg/dl (7-17); Calcium 8.8 mg/dl (8.4-10.2); Carbon Dioxide 28 mmol/L (22.0-30.0); Creatinine Clearance Estimated 96 mL/min (50-200); Estimated Glomerular Filt Rate 85 ml/min (>60); GFR (African American) 103 ML/MIN (>60); Globulin 3.2 g/dL (1.3-3.2); Glucose 95 mg/dl (74-100); Total Protein,Serum 6.8 g/dl (6.3-8.2)
--- OUTSIDE RECORDS SUMMARY | 2023-07-18 13:49 | XMS_ITS ---
Author Name Unknown Address [address] [place] [address] Phone Organization [facility] Address [address] [place] [address] Phone Care Team Providers Care Draughtsman Name Role Phone Eduard Redding MD [phone] Conditions or Problems No information available. Medications [...] Procedures Code Procedure Name Date Entry Date [id number] CBC with Differential 2022 CPT-18313 CMP CPT-08767 C- reactive protein CPT-12843 Sedimentation Rate (ESR) 202 04/14/17 Vital Signs [...]
--- OUTSIDE RECORDS SUMMARY | 2023-07-18 13:49 | XMS_ITS | Clinical Summary ---
Author Name Unknown Address [address] [place] [address] Phone Organization [facility] Address [address] [place] [address] Phone Care Team Providers Care Organic Chemist Name Role Phone Connor STEVEN, Alla Lacy Unavailable Conditions or Problems Problem Name Problem Code Onset Date Status Entry Date Provider Comment Standard Description Annotate Effusion, right shoulder M25.411 (ICD-10-CM ) 08/12 Active 08/12 Selma Adán Effusion, right shoulder Persistent atrial fibrillation 116236610 (SNOMED CT) 08/12 Active 08/12 Selma Adán Persistent atrial fibrillation shelter (current) use of anticoagulant s, Eliquis Z79.01 (ICD-10-CM ) 08/12 Active 08/12 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 Septic arthritis, right shoulder (identify bacteria) (B96 codes) M00.811 (ICD-10-CM ) 08/12 Active 08/12 Selma Adán Arthritis due to other bacteria, right shoulder Cellulitis, shoulder, right 801093381 (SNOMED CT) 08/12 Active 08/12 Selma Adán Cellulitis of upper limb COPD 46580523 (SNOMED CT) 08/12 Active 08/12 Selma Adán Chronic obstructive pulmonary disease Benign Essential Hypertension 40776316 (SNOMED CT) 08/12 Active 08/12 Selma Adán Benign hypertension Nicotine dependence, cigarettes 17040643 (SNOMED CT) 08/12 Active 08/12 Selma Adán Cigarette smoker Nicotine dependence 66230685 (SNOMED CT) 08/12 Inactive 08/12 Gypsy Mack Nicotine dependence Medications Medication Instructions Start Date Stop Date Generic Name ND Provider divina gary 2GM IV Q24hrs - [facility] ceftriaxone mario Ryan RN ONDANSETRON HCL 4 MG TABS Take 1 tablet by mouth Every 6 (Six) Hours As Needed for Nausea or Vomiting for up to 7 days ondansetron hcl [id number] Elsie June LEVOTHYROXINE SODIUM 50 MCG TABS Take 1 tablet by mouth Daily levothyroxine [id number] Elsie June NALOXONE HCL 4 MG/0.1ML LIQD Call 911. Don't prime. [place] in 1 nostril for overdose. Repeat in 2-3 minutes in other nostril if no or minimal breathing/respo nsiveness naloxone [id number] Elsie June GABAPENTIN 600 MG TABS Take 1 tablet by mouth Daily. gabapentin [id number] Elsie June IRBESARTAN 75 MG TABS Take 1 tablet by mouth Daily irbesartan [id number] Elsie June OXYCODONE HCL 5 MG TABS Take 1 tablet by mouth Every 4 (Four) Hours As Needed for Moderate Pain oxycodone 03446488799 Elsie June PANTOPRAZOLE SODIUM 40 MG TBEC Take 1 tablet by mouth Daily pantoprazole 70038851790 Elsie June VENTOLIN HFA 108 (90 Base) MCG/ACT AERS Inhale 2 puffs Every 4 (Four) Hours As Needed for Wheezing or Shortness of Air. albuterol sulfate 79799551457 Elsie June SYMBICORT 160-4.5 MCG/ACT AERO Inhale 2 puffs 2 (Two) Times a Day budesonide-formo terol 91529266219 Elsie June FUROSEMIDE 20 MG TABS Take 1 tablet by mouth Daily. furosemide 38518051998 Elsie June ASPIRIN 81 MG TBEC Take 1 tablet by mouth Daily aspirin 82233053366 Elsie June ATORVASTATIN CALCIUM 40 MG TABS Take 1 tablet by mouth Every Night. atorvastatin 17374304820 Elsie June ALBUTEROL SULFATE 1.25 MG/3ML NEBU 3 mL Every 6 (Six) Hours As Needed for Wheezing or Shortness of Air albuterol sulfate 00126959555 Elsie June apixaban 5 mg tablet Take 1 tablet by mouth 2 (Two) Times a Day. HOLD 48 HOURS PRIOR TO SURGERY apixaban Elsie June CITALOPRAM HYDROBROMIDE 10 MG TABS Take 1 tablet by mouth Daily citalopram [id number] Elsie June DULOXETINE HCL 30 MG CPEP Take 1 capsule by mouth Daily. duloxetine 02269603671 Elsie June FAMOTIDINE 40 MG TABS Take 1 tablet by mouth 2 (Two) Times a Day. famotidine 72322819624 Elsie June DICLOFENAC SODIUM ER 100 MG [id number] Take 75 mg by mouth 2 (Two) Times a Day diclofenac sodium 34941301281 Elsie June DILTIAZEM HCL ER BEADS 240 MG [id number] Take 1 capsule by mouth 2 (Two) Times a Day diltiazem hcl 86065456896 Elsie June ceftriaxone recon soln 2GM IV Q24hrs - [facility] OP Oncology ceftriaxone recon soln Mimi Lopez [...] Procedures Code Procedure Name Date Entry Date [id number] CBC with Differential 2022 CPT-40304 CMP CPT-33223 C- reactive protein CPT-51611 Sedimentation Rate (ESR) 202 04/14/17 [id number] CBC with Differential 2022 CPT-09111 CMP CPT-70289 C- reactive protein CPT-75726 Sedimentation Rate (ESR) 202 04/14/12 CPT-sl STAT Labs CPT-62283 CMP CPT-03217 Sedimentation Rate (ESR) 202 04/14/05 CPT-87559 C- reactive protein [id number] CBC with Differential 2022 CPT-sl STAT Labs [...]
--- OUTSIDE RECORDS SUMMARY | 2023-07-18 13:49 | XMS_ITS ---
Author Name Unknown Address [address] [place] [address] Phone Organization [facility] Address [address] [place] [address] Phone Care Team Providers Care Boiler Fitter Name Role Phone Jose TAFOYA, Mamadou Ryan [...] Procedures Code Procedure Name Date Entry Date CPT-75345 CMP CPT-80369 Sedimentation Rate (ESR) 202 04/14/05 CPT-53980 C- reactive protein [id number] CBC with Differential 2022 CPT-sl STAT Labs [...]
--- OUTSIDE RECORDS SUMMARY | 2023-07-18 13:49 | XMS_ITS ---
Author Name Unknown Address [address] [place] [address] Phone Organization [facility] Address [address] [place] [address] Phone Care Team Providers Care Dialysis Technician Name Role Phone Eduard Redding MD [phone] Conditions or Problems No information available. Medications [...] Procedures Code Procedure Name Date Entry Date [id number] CBC with Differential 2022 CPT-28798 CMP CPT-76737 C- reactive protein CPT-75533 Sedimentation Rate (ESR) 202 04/14/12 Vital Signs [...]
--- OUTSIDE RECORDS SUMMARY | 2023-07-18 13:49 | XMS_ITS ---
Author Name Unknown Address [address] [place] [address] Phone Organization [facility] Address [address] [place] [address] Phone Care Team Providers Care Bass Viol Repairer Name Role Phone Jose TAFOYA, Mamadou Ryan Unavailable [phone] [ ] Conditions or Problems No information [...]
[2023-07-18 13:52] LABS: Basophils # 0.1 K/mm3 (0-0.2); Basophils % 0.6 % (0.1-2.0); Eosinophils # 0.1 K/mm3 (0.0-0.4); Eosinophils % 0.8 % (0.1-12.0); Hematocrit 41.3 % (37.0-47.0); Hemoglobin 12.6 g/dL (12.2-16.2); Lymphocytes # 1.9 K/mm3 (0.7-4.5); Lymphocytes % 12.1 % (10-50); Mean Corpuscular HGB Conc 30.5 g/dL (31.8-35.4); Mean Corpuscular Hemoglobin 28.4 pg (27.0-31.2); Mean Corpuscular Volume 93.2 fl (81-99); Mean Platelet Volume 8.6 fl (7.4-10.4); Monocytes # 1.2 K/mm3 (0.1-1.0); Neutrophils % 78.5 % (37.0-80.0); Platelet Count 366 K/mm3 (142-424); Red Blood Count 4.43 M/mm3 (4.20-5.40); Red Cell Distribution Width 16.4 % (11.5-17.5); White Blood Count 15.3 K/mm3 (4.8-10.8)
[2023-07-18 13:55] LABS: MANUAL DIFFERENTIAL MANUAL DIFFERENTIAL (MANUAL DIFF)
[2023-07-18] MEDS: AZITHROMYCIN 500 MG in 0.9 % SODIUM CHLORIDE 250 ML 250 MG IV (14:02)
[2023-07-18] MEDS: dilTIAZem 25MG/5ML VIAL 20 MG IV (14:03)
--- NOTE | 2023-07-18 14:04 | ECG_ITS ---
APPROVED REPORT Exam: Resting ECG HR:76 bpm ECG Measurements Heart Rate 76 AXES QRSd 162 QRS 79 QT 366 T -89 QTc 396 Conclusion ATRIAL FLUTTER/TACHYCARDIA INTRAVENTRICULAR CONDUCTION DELAY [130+ ms QRS DURATION] ABNORMAL ECG Electronically signed by : WESTON WAGNER, 07/19/2023 22:34:21
[2023-07-18 14:31] LABS: Free T4 (Free Thyroxine) 1.92 ng/dl (0.78-2.19)
[2023-07-18] MEDS: dilTIAZem HCL 100 MG in 0.9 % SODIUM CHLORIDE 100 ML IV (14:37)
[2023-07-18 14:39] LABS: Eosinophils % 1 % (0-3); Lymphocytes % 12 % (10-50); Monocytes % 8 % (2-9); Neutrophils % 59 % (42-76); Total Cells Counted 100
[2023-07-18 14:42] LABS: Anisocytosis 1+; Platelet Estimate Normal
[2023-07-18 14:43] LABS: Target Cells 1+
[2023-07-18 14:44] LABS: Spherocytes 1+
[2023-07-18] MEDS: CEFTRIAXONE 1 GM 1 GM in 0.9 % SODIUM CHLORIDE 50 ML IV (15:17)
[2023-07-18 15:23] LABS: Troponin I < 0.01 ng/ml (0.00-0.034)
--- OUTSIDE RECORDS SUMMARY | 2023-07-18 15:53 | XMS_ITS | Clinical Summary ---
Author Name Unknown Address [address] [place] [address] Phone Organization [facility] Address [address] [place] [address] Phone Care Team Providers Care Nursing Professor Name Role Phone Connor STEVEN, Alla Lacy Unavailable Conditions or Problems Problem Name Problem Code Onset Date Status Entry Date Provider Comment Standard Description Annotate Effusion, right shoulder M25.411 (ICD-10-CM ) 08/12 Active 08/12 Selma Adán Effusion, right shoulder Persistent atrial fibrillation 026516698 (SNOMED CT) 08/12 Active 08/12 Selma Adán Persistent atrial fibrillation shelter (current) use of anticoagulant s, Eliquis Z79.01 (ICD-10-CM ) 08/12 Active 08/12 Selma Adán manager terminal (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 Septic arthritis, right shoulder (identify bacteria) (B96 codes) M00.811 (ICD-10-CM ) 08/12 Active 08/12 Selma Adán Arthritis due to other bacteria, right shoulder Cellulitis, shoulder, right 971878957 (SNOMED CT) 08/12 Active 08/12 Selma Adán Cellulitis of upper limb COPD 10123830 (SNOMED CT) 08/12 Active 08/12 Selma Adán Chronic obstructive pulmonary disease Benign Essential Hypertension 75304300 (SNOMED CT) 08/12 Active 08/12 Selma Adán Benign hypertension Nicotine dependence, cigarettes 63047698 (SNOMED CT) 08/12 Active 08/12 Selma Adán Cigarette smoker Nicotine dependence 39592743 (SNOMED CT) 08/12 Inactive 08/12 Gypsy Mack Nicotine dependence Medications Medication Instructions Start Date Stop Date Generic Name ND Provider divina gary 2GM IV Q24hrs - MIHIR/Sabianism OP Oncology ceftriaxone mario Ryan RN ONDANSETRON HCL 4 MG TABS Take 1 tablet by mouth Every 6 (Six) Hours As Needed for Nausea or Vomiting for up to 7 days ondansetron hcl [id number] Elsie June LEVOTHYROXINE SODIUM 50 MCG TABS Take 1 tablet by mouth Daily levothyroxine 68011989469 Elsie June NALOXONE HCL 4 MG/0.1ML LIQD Call 911. Don't prime. [place] in 1 nostril for overdose. Repeat in 2-3 minutes in other nostril if no or minimal breathing/respo nsiveness naloxone 25916485615 Elsie June GABAPENTIN 600 MG TABS Take 1 tablet by mouth Daily. gabapentin 97751022628 Elsie June IRBESARTAN 75 MG TABS Take 1 tablet by mouth Daily irbesartan 24355020293 Elsie June OXYCODONE HCL 5 MG TABS Take 1 tablet by mouth Every 4 (Four) Hours As Needed for Moderate Pain oxycodone 86957597096 Elsie June PANTOPRAZOLE SODIUM 40 MG TBEC Take 1 tablet by mouth Daily pantoprazole 10396673382 Elsie June VENTOLIN HFA 108 (90 Base) MCG/ACT AERS Inhale 2 puffs Every 4 (Four) Hours As Needed for Wheezing or Shortness of Air. albuterol sulfate 13605083946 Elsie June SYMBICORT 160-4.5 MCG/ACT AERO Inhale 2 puffs 2 (Two) Times a Day budesonide-formo terol 74347152233 Elsie June FUROSEMIDE 20 MG TABS Take 1 tablet by mouth Daily. furosemide 89872182187 Elsie June ASPIRIN 81 MG TBEC Take 1 tablet by mouth Daily aspirin 50383094329 Elsie June ATORVASTATIN CALCIUM 40 MG TABS Take 1 tablet by mouth Every Night. atorvastatin 29176608532 Elsie June ALBUTEROL SULFATE 1.25 MG/3ML NEBU 3 mL Every 6 (Six) Hours As Needed for Wheezing or Shortness of Air albuterol sulfate 53433709913 Elsie June apixaban 5 mg tablet Take 1 tablet by mouth 2 (Two) Times a Day. HOLD 48 HOURS PRIOR TO SURGERY apixaban Elsie June CITALOPRAM HYDROBROMIDE 10 MG TABS Take 1 tablet by mouth Daily citalopram 70382829273 Elsie June DULOXETINE HCL 30 MG CPEP Take 1 capsule by mouth Daily. duloxetine 15871162718 Elsie June FAMOTIDINE 40 MG TABS Take 1 tablet by mouth 2 (Two) Times a Day. famotidine 80081242679 Elsie June DICLOFENAC SODIUM ER 100 MG [id number] Take 75 mg by mouth 2 (Two) Times a Day diclofenac sodium 99133554303 Elsie June DILTIAZEM HCL ER BEADS 240 MG [id number] Take 1 capsule by mouth 2 (Two) Times a Day diltiazem hcl 23432527426 Elsie June ceftriaxone recon soln 2GM IV Q24hrs - B[facility]/Sabianism OP Oncology ceftriaxone recon soln Mimi Lopez [...] Procedures Code Procedure Name Date Entry Date [id number] CBC with Differential 2022 CPT-29365 CMP CPT-93723 C- reactive protein CPT-74210 Sedimentation Rate (ESR) 202 04/14/17 [id number] CBC with Differential 2022 CPT-23843 CMP CPT-85754 C- reactive protein CPT-76804 Sedimentation Rate (ESR) 202 04/14/12 CPT-sl STAT Labs CPT-21832 CMP CPT-31672 Sedimentation Rate (ESR) 202 04/14/05 CPT-86307 C- reactive protein [id number] CBC with Differential 2022 CPT-sl STAT Labs [...]
--- OUTSIDE RECORDS SUMMARY | 2023-07-18 15:53 | XMS_ITS ---
Author Name Unknown Address [address] [place] [address] Phone Organization [facility] Address [address] [place] [address] Phone Care Team Providers Care Nursing Associate Name Role Phone Eduard Redding MD [phone] Conditions or Problems No information available. Medications [...] Procedures Code Procedure Name Date Entry Date [id number] CBC with Differential 2022 CPT-23049 CMP CPT-08971 C- reactive protein CPT-62519 Sedimentation Rate (ESR) 202 04/14/17 Vital Signs [...]
--- OUTSIDE RECORDS SUMMARY | 2023-07-18 15:53 | XMS_ITS ---
Author Name Unknown Address [address] [place] [address] Phone Organization [facility] Address [address] [place] [address] Phone Care Team Providers Care Ged Teacher Name Role Phone Jose TAFOYA, Mamadou Ryan [...]
--- OUTSIDE RECORDS SUMMARY | 2023-07-18 15:53 | XMS_ITS ---
Author Name Unknown Address [address] [place] [address] Phone Organization [facility] Address [address] [place] [address] Phone Care Team Providers Care Warehouse Engineer Name Role Phone Eduard Redding MD [phone] Conditions or Problems No information available. Medications [...] Procedures Code Procedure Name Date Entry Date [id number] CBC with Differential 2022 CPT-37032 CMP CPT-30747 C- reactive protein CPT-11384 Sedimentation Rate (ESR) 202 04/14/12 Vital Signs [...]
--- OUTSIDE RECORDS SUMMARY | 2023-07-18 15:53 | XMS_ITS ---
Author Name Unknown Address [address] [place] [address] Phone Organization [facility] Address [address] [place] [address] Phone Care Team Providers Care Marine Welder Name Role Phone Jose TAFOYA, Mamadou Ryan [...] Procedures Code Procedure Name Date Entry Date CPT-21027 CMP CPT-85372 Sedimentation Rate (ESR) 202 04/14/05 CPT-27545 C- reactive protein [id number] CBC with Differential 2022 CPT-sl STAT Labs [...]
--- NOTE | 2023-07-18 16:00 | PC.NURSE ---
report called to anabel bermudez on second floor
[2023-07-18 16:09] LABS: Thyroid Stimulating Hormone < 0.02 uIU/mL (0.465-4.68)
--- NOTE | 2023-07-18 16:47 | P.HP_ITS ---
History of Present Illness *Admission Date: 07/18/23 *Reason for visit:: dyspnea, chest pain *History of present illness: Ms. Buchanan is a 62-year-old female with COPD, continued tobacco use disorder, A- fib, diastolic heart failure. She presented to the ER with worsening shortness of breath. Symptoms began about a week ago. She was seen earlier this week in the ER and treated for COPD exacerbation and discharged home. States that she had improvement in her sputum production but continued to be short of breath and was developing chest tightness. Sputum initially yellow and thick, showed some clearing over the past day or 2. Was having to wear oxygen at home. Normally wears 2-2 and half liters as needed, was having to wear oxygen continuously. Came to the ER for further evaluation today. Continues to have intermittent cough, no nausea or vomiting. Continues to smoke up until Wednesday. Smokes 1/2 pack a day. Alert and oriented x 4. Workup in the ER positive for leukocytosis (has been on steroids for 2 to 3 days), hypoxia necessitating continuous oxygen, and CT of chest with concern for airspace disease in the setting of severe emphysema. Medicine consulted for admission. Patient still complaining of some chest soreness, across her chest and into her back. States it hurts and it is tight. Has been coughing a lot and breathing using accessory muscles. Is otherwise alert and oriented. Hungry at this time. Hemodynamically stable. Stable on 2 L with sats in the low 90s. [facility] Disclaimer: The information contained in this section may have been updated after the patient was seen, as this information can be updated by other users. Medical History Dyspnea Afib Sinus bradycardia Coronary artery disease Chronic, continuous use of opioids Right rotator cuff tear Hypothyroidism Atrial fibrillation/flutter Pulmonary hypertension Hepatitis C Tobacco dependence (HFpEF) heart failure with preserved ejection fraction Hyperlipidemia Hypertension COPD (chronic obstructive pulmonary disease) Surgical History History of hysterectomy History of surgery on right wrist History of mandibular surgery History of left heart catheterization History of cholecystectomy S/P rotator cuff repair H/O splenectomy History of cardioversion Family History Mother Stroke Father Coronary artery disease Social History Smoking Status: Current every day smoker tobacco type: cigarettes packs per day: 1 years smoked: 40 second hand exposure: Yes alcohol intake: never substance use type: denies use current occupational status: unemployed and disabled Travel in the last 8 weeks: Inside the [place] household members: none housing: house lives independently: Yes marital status: single number of children: 3 current occupation: Disabled caffeine: Yes Review of Systems Review of Systems Review of systems (narrative): 14 point review of systems performed, pertinent positives and negatives as per [facility] Meds Home Medications and Allergies Home Medications Medication Instructions Recorded Confirmed Type duloxetine 30 mg capsule,delayed 30 mg PO DAILY Depression 11/04/20 07/18/23 History release gabapentin 600 mg tablet 600 mg PO DAILY Pain 11/04/20 07/18/23 History albuterol sulfate 1.25 mg/3 mL 1.25 mg inhalation Q4HP PRN 01/09/21 07/18/23 History solution for nebulization Shortness Of Breath albuterol sulfate 90 mcg/actuation 1 puff inhalation Q4HP PRN 01/10/21 07/18/23 History aerosol inhaler Shortness Of Breath budesonide-formoterol HFA 160 2 puffs inhalation BID Breathing 01/10/21 07/18/23 History mcg-4.5 mcg/actuation aerosol problems inhaler pantoprazole 40 mg tablet,delayed 40 mg PO DAILY GERD #90 tabs 03/04/21 07/18/23 Rx release citalopram 10 mg tablet 10 mg PO DAILY Depression 03/01/22 07/18/23 History diclofenac sodium 1 % topical gel 1 ea topical QIDP PRN Pain 03/01/22 07/18/23 History levothyroxine 50 mcg tablet 50 mcg PO DAILY Hypothyroidism 03/01/22 07/18/23 History mirtazapine 15 mg tablet 15 mg PO HS sleep 03/01/22 07/18/23 History apixaban 5 mg tablet (Eliquis) 5 mg PO BID #60 tabs 01/28/23 07/18/23 Rx aspirin 81 mg tablet,delayed 81 mg PO DAILY #100 tabs 01/28/23 07/18/23 Rx release atorvastatin 40 mg tablet 40 mg PO HS Cholesterol #30 tabs 01/28/23 07/18/23 Rx diltiazem HCl 240 mg capsule,24 240 mg PO BID #60 caps 01/28/23 07/18/23 Rx hr,extended release famotidine 40 mg tablet 40 mg PO BID acid reflux #60 tabs 01/28/23 07/18/23 Rx irbesartan 75 mg tablet 75 mg PO DAILY #30 tabs 01/28/23 07/18/23 Rx diclofenac sodium 75 mg 150 mg PO DAILY 04/13/23 07/18/23 History tablet,delayed release furosemide 20 mg tablet 40 mg PO DAILY Shortness Of Breath 04/13/23 07/18/23 History lidocaine 5 % topical patch 1 patch topical DAILY 04/13/23 07/18/23 History (Lidoderm) meclizine 25 mg chewable tablet 25 mg PO DAILY PRN Dizziness 04/13/23 07/18/23 History metoprolol succinate 25 mg 25 mg PO DAILY #30 tabs 06/07/23 07/18/23 Rx tablet,extended release 24 hr (Toprol XL) doxycycline hyclate 100 mg capsule 100 mg PO BID 5 days #10 caps 07/13/23 07/18/23 Rx prednisone 20 mg tablet 40 mg (2 x 20 mg) PO DAILY 5 days 07/13/23 07/18/23 Rx #10 tabs empagliflozin 10 mg tablet See Rx Instructions .Route 07/16/23 07/18/23 Rx (Jardiance) .COMPLEX #90 tabs New Prescriptions to Start Prescriptions: Allergies Allergy/AdvReac Type Severity Reaction Status Date / Time codeine Allergy Mild Nausea Verified 04/13/23 15:17 penicillin G [PENICILLIN G] Allergy Mild I-RASH/NV Verified 04/13/23 15:17 acetaminophen [ACETAMINOPHEN] AdvReac Mild NOT Verified 04/13/23 15:17 ALLERGIC. NEED TO WATCH DUE TO LIVER Exam Data for Last 24 hours Vital signs and Labs for Last 24 Hours: Temp Pulse Resp BP Pulse Ox O2 Del Method O2 Flow Rate 98.0 F 72 14 114/84 97 Room Air 3 07/18/23 12:52 07/18/23 15:30 07/18/23 15:30 07/18/23 15:30 07/18/23 15:30 07/18/23 14:01 07/18/23 12:52 Laboratory Results - last 24 hr 07/18/23 13:05: WBC 15.3 H, RBC 4.43, Hgb 12.6, Hct 41.3, MCV 93.2, MCH 28.4, MCHC 30.5 L, RDW 16.4, Plt Count 366, MPV 8.6, Neut % (Auto) 78.5, Lymph % (Auto) 12.1, [place] % (Auto) 8.0, Eos % (Auto) 0.8, Baso % (Auto) 0.6, Neut # (Auto) 12.0 H, Lymph # (Auto) 1.9, [place] # (Auto) 1.2 H, Eos # (Auto) 0.1, Baso # (Auto) 0.1, Total Counted 100, Neutrophils % (Manual) 59, Band Neutrophils % 20.0 H, Lymphocytes % (Manual) 12, Monocytes % (Manual) 8, Eosinophils % (Manual) 1, Platelet Estimate Normal, Anisocytosis 1+, Spherocytes 1+, Target Cells 1+, Sodium 140, Potassium 3.8, Chloride 108 H, Carbon Dioxide 28, Anion Gap 7.8, BUN 17, Creatinine 0.70, Estimated Creat Clear 96, Estimated GFR 85, Est GFR ( Amer) 103, Glucose 95, Calcium 8.8, Total Bilirubin 0.5, AST 35, ALT 48, Alkaline Phosphatase 125, Troponin I < 0.01, Total Protein 6.8 D, Albumin 3.6, Globulin 3.2, Albumin/Globulin Ratio 1.1, TSH < 0.02 L, Free T4 1.92 07/18/23 13:28: VBG pH 7.38, VBG pCO2 40.9, VBG pO2 64.3 H, VBG HCO3 23.7, VBG Total CO2 24.9, VBG O2 Saturation 92.9 H, VBG Base Excess -1.5, VBG Lactic Acid 1.5 I & O for Last 24 hours: Intake & Output 07/15/23 07/16/23 07/17/23 07/18/23 23:59 23:59 23:59 23:59 Weight 71.214 kg Constitutional Constitutional: no acute distress, thin, chronically ill appearing and cooperative *Routine HEENT Exam Head: Present normocephalic Eye: Present EOMI and PERRL ENT: Present mucous membranes moist *Routine Neck Exam Neck: Present supple; Absent JVD, lymphadenopathy or thyromegaly *Routine Respiratory Exam Respiratory: Present accessory muscle use, prolonged expiratory phase, rhonchi and wheezes; Absent respiratory distress or crackles Comments: Barrel chested *Routine Cardiovascular Exam Cardiovascular: Present tachycardia and irregular rhythm; Absent JVD *Routine Abdominal Exam Abdominal: Present soft and normoactive bowel sounds; Absent tenderness *Routine Rectal Exam Rectal:: deferred *Routine Genitalia Exam Genitalia:: deferred *Routine Extremities Exam Extremities: Absent cyanosis, clubbing or edema *Routine Skin Exam Skin: Present warm; Absent rash *Routine Neurological Exam Neurological: Present alert, oriented X3, moving all extremities, vision grossly intact, hearing grossly intact and normal speech; Absent sensory deficit or m otor deficit Routine Psychiatric Exam Psychiatric: Present normal affect, normal thought process, cooperative, good insight and good judgment Assessment and Plan *Assessment and plan (1) Atrial flutter with rapid ventricular response: Status: Acute Category: Medical Code(s): I48.92 - Unspecified atrial flutter (2) Pneumonia: Status: Acute Category: Medical Code(s): J18.9 - Pneumonia, unspecified organism (3) COPD exacerbation: Status: Acute Category: Medical Code(s): J44.1 - Chronic obstructive pulmonary disease with (acute) exacerbation (4) (HFpEF) heart failure with preserved ejection fraction: Status: Chronic Qualifiers: Heart failure chronicity: chronic Qualified Code(s): I50.32 - Chronic diastolic (congestive) heart failure Category: Medical Code(s): I50.30 - Unspecified diastolic (congestive) heart failure (5) Tobacco dependence: Status: Chronic Category: Medical Code(s): F17.200 - Nicotine dependence, unspecified, uncomplicated (6) Hypertension: Status: Chronic Qualifiers: Hypertension type: primary hypertension Qualified Code(s): I10 - Essential (primary) hypertension Category: Medical Code(s): I10 - Essential (primary) hypertension (7) Hyperlipidemia: Status: Chronic Qualifiers: Hyperlipidemia type: mixed hyperlipidemia Qualified Code(s): E78.2 - Mixed hyperlipidemia Category: Medical Code(s): E78.5 - Hyperlipidemia, unspecified (8) Coronary artery disease: Status: Chronic Qualifiers: Associated angina: without angina Coronary Disease-Associated Artery/Lesion type: [place] artery [place] vs. transplanted heart: [place] heart Qualified Code(s): I25.10 - Atherosclerotic heart disease of [place] coronary artery without angina pectoris Category: Medical Code(s): I25.10 - Atherosclerotic heart disease of [place] coronary artery without angina pectoris Plan 62-year-old female with emphysema, a flutter, heart failure with preserved ejection fraction. Presented to the ER because of worsening shortness of breath and chest tightness. Found to have a flutter with RVR and pneumonia superimposed on COPD exacerbation. Discussed case with ER physician, request admission for inpatient management as patient was initiated on diltiazem drip. Medicine agreed to admit for further management. Heart rate showing improvement in the 70s on exam. Continuing drip at this time. On 2 L continuous oxygen. Still having chest tightness. Initial troponin nonactionable. Pulmonology and cardiology consulted to see patient in the morning. Problems addressed as follows: Pneumonia COPD exacerbation Acute on chronic hypoxemic respiratory failure -Supplemental oxygen as needed, goal sats greater 90%. Currently on 2 L. -Levalbuterol/ipratropium every 6 hours scheduled - continue ceftriaxone and azithromycin daily for pneumonia component -CT personally reviewed showing severe bullous emphysema in upper lobes with left lower lobe consolidation concerning for pneumonia -Budesonide twice daily -Pulmonology consulted to assist with care. Atrial flutter with RVR Chronic heart failure with preserved ejection fraction -Initially with tachyarrhythmia. Started on diltiazem drip. Improved by arrival to the floor. Will resume home regimen with diltiazem 240 mg extended release twice daily. Will stop drip an hour after receiving evening dose. -Continue metoprolol succinate 25 mg daily -Continue Lasix 40 mg daily - Continue irbesartan 75 mg daily -Continue empagliflozin 10 mg -Cardiology consulted for optimization. -Continue Eliquis 5 mg twice daily TSH less than 0.02, will hold levothyroxine during admission. Continue mirtazapine 15 mg nightly for sleep Continue gabapentin 600 mg daily for pain Continue Lipitor 40 mg daily for hyperlipidemia Continue citalopram 10mg daily for mood Can you Cymbalta 30 mg daily for mood/depression Continue famotidine 40 mg twice daily and pantoprazole 40 mg daily for GERD Tobacco use disorder: Counseled on smoking cessation. Nicotine patch as needed Full code Eliquis twice daily Regular diet
--- OUTSIDE RECORDS SUMMARY | 2023-07-18 17:18 | XMS_ITS ---
Author Name Unknown Address [address] [place] [address] Phone Organization [facility] Address [address] [place] [address] Phone Care Team Providers Care Contact Center Professional Name Role Phone Eduard Redding MD [phone] Conditions or Problems No information available. Medications [...] Procedures Code Procedure Name Date Entry Date [id number] CBC with Differential 2022 CPT-40407 CMP CPT-48307 C- reactive protein CPT-43270 Sedimentation Rate (ESR) 202 04/14/17 Vital Signs [...]
--- OUTSIDE RECORDS SUMMARY | 2023-07-18 17:18 | XMS_ITS ---
Author Name Unknown Address [address] [place] [address] Phone Organization [facility] Address [address] [place] [address] Phone Care Team Providers Care Transport Conductor Name Role Phone Jose TAFOYA, Mamadou Ryan Unavailable [phone] [ ] Conditions or Problems No information [...]
--- OUTSIDE RECORDS SUMMARY | 2023-07-18 17:18 | XMS_ITS | Clinical Summary ---
Author Name Unknown Address [address] [place] [address] Phone Organization [facility] Address [address] [place] [address] Phone Care Team Providers Care Jewel Bearing Grinder Name Role Phone Connor STEVEN, Alla Lacy Unavailable Conditions or Problems Problem Name Problem Code Onset Date Status Entry Date Provider Comment Standard Description Annotate Effusion, right shoulder M25.411 (ICD-10-CM ) 08/12 Active 08/12 Selma Adán Effusion, right shoulder Persistent atrial fibrillation 132843014 (SNOMED CT) 08/12 Active 08/12 Selma Adán Persistent atrial fibrillation senior care (current) use of anticoagulant s, Eliquis Z79.01 (ICD-10-CM ) 08/12 Active 08/12 Selma Adán long term care phlebotomist (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 Septic arthritis, right shoulder (identify bacteria) (B96 codes) M00.811 (ICD-10-CM ) 08/12 Active 08/12 Selma Adán Arthritis due to other bacteria, right shoulder Cellulitis, shoulder, right 644733748 (SNOMED CT) 08/12 Active 08/12 Selma Adán Cellulitis of upper limb COPD 81455323 (SNOMED CT) 08/12 Active 08/12 Selma Adán Chronic obstructive pulmonary disease Benign Essential Hypertension 10907973 (SNOMED CT) 08/12 Active 08/12 Selma Adán Benign hypertension Nicotine dependence, cigarettes 63407888 (SNOMED CT) 08/12 Active 08/12 Selma Adán Cigarette smoker Nicotine dependence 43158939 (SNOMED CT) 08/12 Inactive 08/12 Gypsy Mack Nicotine dependence Medications Medication Instructions Start Date Stop Date Generic Name ND Provider divina gary 2GM IV Q24hrs - [facility] Oncology ceftriaxone mario Ryan RN ONDANSETRON HCL 4 MG TABS Take 1 tablet by mouth Every 6 (Six) Hours As Needed for Nausea or Vomiting for up to 7 days ondansetron hcl [id number] Elsie June LEVOTHYROXINE SODIUM 50 MCG TABS Take 1 tablet by mouth Daily levothyroxine [id number] Elsie June NALOXONE HCL 4 MG/0.1ML LIQD Call 911. Don't prime. [place] in 1 nostril for overdose. Repeat in 2-3 minutes in other nostril if no or minimal breathing/respo nsiveness naloxone 15600781179 Elsie June GABAPENTIN 600 MG TABS Take 1 tablet by mouth Daily. gabapentin 62581558105 Elsie June IRBESARTAN 75 MG TABS Take 1 tablet by mouth Daily irbesartan 13982803155 Elsie June OXYCODONE HCL 5 MG TABS Take 1 tablet by mouth Every 4 (Four) Hours As Needed for Moderate Pain oxycodone 06639769222 Elsie June PANTOPRAZOLE SODIUM 40 MG TBEC Take 1 tablet by mouth Daily pantoprazole 06611792190 Elsie June VENTOLIN HFA 108 (90 Base) MCG/ACT AERS Inhale 2 puffs Every 4 (Four) Hours As Needed for Wheezing or Shortness of Air. albuterol sulfate 99374451285 Elsie June SYMBICORT 160-4.5 MCG/ACT AERO Inhale 2 puffs 2 (Two) Times a Day budesonide-formo terol 69787499257 Elsie June FUROSEMIDE 20 MG TABS Take 1 tablet by mouth Daily. furosemide 43951857364 Elsie June ASPIRIN 81 MG TBEC Take 1 tablet by mouth Daily aspirin 06962263514 Elsie June ATORVASTATIN CALCIUM 40 MG TABS Take 1 tablet by mouth Every Night. atorvastatin 14684535553 Elsie June ALBUTEROL SULFATE 1.25 MG/3ML NEBU 3 mL Every 6 (Six) Hours As Needed for Wheezing or Shortness of Air albuterol sulfate 39257125045 Elsie June apixaban 5 mg tablet Take 1 tablet by mouth 2 (Two) Times a Day. HOLD 48 HOURS PRIOR TO SURGERY apixaban Elsie June CITALOPRAM HYDROBROMIDE 10 MG TABS Take 1 tablet by mouth Daily citalopram 63628442742 Elsie June DULOXETINE HCL 30 MG CPEP Take 1 capsule by mouth Daily. duloxetine 76684240229 Elsie June FAMOTIDINE 40 MG TABS Take 1 tablet by mouth 2 (Two) Times a Day. famotidine 43284882746 Elsie June DICLOFENAC SODIUM ER 100 MG [id number] Take 75 mg by mouth 2 (Two) Times a Day diclofenac sodium 68825928622 Elsie June DILTIAZEM HCL ER BEADS 240 MG [id number] Take 1 capsule by mouth 2 (Two) Times a Day diltiazem hcl 74658485037 Elsie June ceftriaxone recon soln 2GM IV Q24hrs - [facility] OP Oncology ceftriaxone recon soln Mimi Lopez [...] Procedures Code Procedure Name Date Entry Date [id number] CBC with Differential 2022 CPT-21887 CMP CPT-13648 C- reactive protein CPT-90280 Sedimentation Rate (ESR) 202 04/14/17 [id number] CBC with Differential 2022 CPT-01474 CMP CPT-31603 C- reactive protein CPT-78496 Sedimentation Rate (ESR) 202 04/14/12 CPT-sl STAT Labs CPT-30601 CMP CPT-78149 Sedimentation Rate (ESR) 202 04/14/05 CPT-10123 C- reactive protein [id number] CBC with Differential 2022 CPT-sl STAT Labs [...]
--- OUTSIDE RECORDS SUMMARY | 2023-07-18 17:18 | XMS_ITS ---
Author Name Unknown Address [address] [place] [address] Phone Organization [facility] Address [address] [place] [address] Phone Care Team Providers Care Cnmt Name Role Phone Jose TAFOYA, Mamadou Ryan [...] Procedures Code Procedure Name Date Entry Date CPT-29825 CMP CPT-32826 Sedimentation Rate (ESR) 202 04/14/05 CPT-67322 C- reactive protein [id number] CBC with Differential 2022 CPT-sl STAT Labs [...]
--- OUTSIDE RECORDS SUMMARY | 2023-07-18 17:18 | XMS_ITS ---
Author Name Unknown Address [address] [place] [address] Phone Organization [facility] Address [address] [place] [address] Phone Care Team Providers Care Ceramist Name Role Phone Eduard Redding MD [phone] Conditions or Problems No information available. Medications [...] Procedures Code Procedure Name Date Entry Date [id number] CBC with Differential 2022 CPT-40672 CMP CPT-46460 C- reactive protein CPT-43985 Sedimentation Rate (ESR) 202 04/14/12 Vital Signs [...]
[2023-07-18 18:53] LABS: Troponin I < 0.01 ng/ml (0.00-0.034)
[2023-07-18] MEDS: IPRATROPIUM BROMIDE 0.5 MG/2.5ML SOLUTION IH (18:54)
[2023-07-18] MEDS: LEVALBUTEROL 1.25MG/3ML NEB 1.25 MG IH (18:54)
[2023-07-18] MEDS: KETOROLAC 30MG/ML VIAL 15 MG IV (18:58)
[2023-07-18] MEDS: MORPHINE 2MG/ML SYRINGE 2 MG IV (19:58)
[2023-07-18] MEDS: APIXABAN 5MG TABLET 5 MG PO (20:12)
[2023-07-18] MEDS: ATORVASTATIN 40MG TABLET 40 MG PO (20:13)
[2023-07-18] MEDS: DILTIAZEM HCL 240 MG 240 EACH PO (20:14)
[2023-07-18 21:07] LABS: Troponin I < 0.01 ng/ml (0.00-0.034)
--- NOTE | 2023-07-18 21:15 | PC.NURSE ---
Dilt gtt stopped at this time.
--- NOTE | 2023-07-18 21:30 | PC.NURSE ---
Pt instructed on how to use incentive spirometer at this time. Pt verbalizes understanding.
[2023-07-18] MEDS: MORPHINE 2MG/ML SYRINGE 4 MG IV (21:42)
[2023-07-19] VITALS (11 sets, daily range): BP systolic 112–135; BP diastolic 78–93; PULSE 70–110; RESP 14–24; TEMP 36.5–36.9; O2SAT 91–100
[2023-07-19] MEDS: NICOTINE 21MG/24HR PATCH 21 MG TD (00:15)
[2023-07-19] MEDS: KETOROLAC 30MG/ML VIAL 15 MG IV ×2 (00:15→06:48)
[2023-07-19] MEDS: MORPHINE 2MG/ML SYRINGE 4 MG IV (04:23)
[2023-07-19] MEDS: LEVALBUTEROL 1.25MG/3ML NEB 1.25 MG IH ×2 (05:41→09:45)
[2023-07-19] MEDS: IPRATROPIUM BROMIDE 0.5 MG/2.5ML SOLUTION IH ×2 (05:41→09:45)
[2023-07-19 06:48] LABS: Basophils % 0.1 % (0.1-2.0); Hematocrit 38.8 % (37.0-47.0); Lymphocytes # 0.7 K/mm3 (0.7-4.5); Lymphocytes % 4.2 % (10-50); Mean Corpuscular HGB Conc 30.8 g/dL (31.8-35.4); Mean Platelet Volume 8.4 fl (7.4-10.4); Monocytes # 0.2 K/mm3 (0.1-1.0); Monocytes % 1.2 % (1.7-9.3); Neutrophils # 14.9 K/mm3 (1.8-7.8); Neutrophils % 94.6 % (37.0-80.0); Platelet Count 382 K/mm3 (142-424); Red Blood Count 4.13 M/mm3 (4.20-5.40); Red Cell Distribution Width 16.3 % (11.5-17.5); White Blood Count 15.7 K/mm3 (4.8-10.8)
[2023-07-19 06:49] LABS: Chloride 103 mmol/L (98-107)
[2023-07-19 06:50] LABS: Potassium 4.5 mmoL/L (3.5-5.1); Sodium 135 mmol/L (136-145)
[2023-07-19 06:52] LABS: Alanine Aminotransferase 45 U/L (12-78); Alkaline Phosphatase 105 U/L (38-126); Anion Gap 9.5 mEq/L (5-15); Aspartate Amino Transferase 28 U/L (14-36); Bilirubin,Total 0.2 mg/dl (0.2-1.3); Blood Urea Nitrogen 21 mg/dl (7-17); Carbon Dioxide 27 mmol/L (22.0-30.0); Creatinine Clearance Estimated 74 mL/min (50-200); Estimated Glomerular Filt Rate 64 ml/min (>60); GFR (African American) 77 ML/MIN (>60)
[2023-07-19 06:53] LABS: Albumin Level 3.5 g/dl (3.5-5.0); Albumin/Globulin Ratio 1.2 (1.1-1.8); Calcium 8.7 mg/dl (8.4-10.2); Glucose 162 mg/dl (74-100); Magnesium 2.2 mg/dl (1.6-2.3); Total Protein,Serum 6.5 g/dl (6.3-8.2)
--- NOTE | 2023-07-19 06:54 | PC.NURSE ---
Pt tolerating RA this AM with sat in mid 90s. Pt woke up coughing at 4am with scattered ins rhonchi. Pt has continued to be in Aflutter with HR in 70s at rest and raising up to 130s with exertion. Pt has complained of chest/back pain 5x t/o night rating it up to 9/10. PRN pain medication administered and pt stated relief after each dose. Pt ambulating to BR with standby assist. Call light within reach.
[2023-07-19 08:01] LABS: MANUAL DIFFERENTIAL MANUAL DIFFERENTIAL (MANUAL DIFF)
[2023-07-19] MEDS: ACETAMINOPHEN 325MG TAB 650 MG PO (08:01)
[2023-07-19] MEDS: PANTOPRAZOLE 40MG TABLET 40 MG PO (08:02)
[2023-07-19] MEDS: ASPIRIN EC 81MG TABLET 81 MG PO (08:02)
[2023-07-19] MEDS: dilTIAZem ER 240MG CAPSULE 240 MG PO (08:02)
[2023-07-19] MEDS: GABAPENTIN 600MG TABLET 600 MG PO (08:02)
[2023-07-19] MEDS: FUROSEMIDE 40 MG TABLET PO (08:02)
[2023-07-19] MEDS: DULOXETINE 30MG CAPSULE.DR 30 MG PO (08:02)
[2023-07-19] MEDS: METOPROLOL SUCCINATE XL 25MG TABLET 25 MG PO (08:02)
[2023-07-19] MEDS: APIXABAN 5MG TABLET 5 MG PO (08:03)
[2023-07-19] MEDS: CITALOPRAM 10MG TABLET 10 MG PO (08:03)
[2023-07-19] MEDS: EMPAGLIFLOZIN 10MG TABLET 10 MG PO (08:03)
[2023-07-19] MEDS: FAMOTIDINE 20MG TABLET 40 MG PO (08:03)
--- NOTE | 2023-07-19 08:43 | HMH.PHAINT1 ---
Pharmacy Intervention Comments: MEDICATION RECONCILIATION COMPLETED ON PATIENT USING EXTERNAL FILL HISTORY FROM PHARMACY, ROMAINE REPORT, AND LIST FROM CARDIOLOGY OFFICE. -RADHA HERNANDEZD
[2023-07-19 09:36] LABS: Lymphocytes % 6 % (10-50); Monocytes % 1 % (2-9); Neutrophils % 93 % (42-76); Total Cells Counted 100
[2023-07-19 09:37] LABS: Platelet Estimate Normal; RBC Morphology Normal
[2023-07-19] MEDS: MORPHINE 4MG/ML SYRINGE 4 MG IV (09:38)
--- NOTE | 2023-07-19 10:22 | P.CONCA_ITS ---
History of Present Illness History of Present Illness Consult date: 07/19/23 Requesting physician: Salazar Arreola Consult reason: atrial fibrillation Chief complaint: SOA and productive cough History of present illness: 62-year-old white female established patient of our office last seen in April of this year. She has a history of normal coronaries per heart cath in 2020, paroxysmal a flutter, heart failure improved EF, moderate to severe emphysema on PRN O2 at home with ongoing tobacco use. Patient came to the emergency room for several weeks of worsening severe shortness of breath wheezing and productive co ugh associated with fatigue. Symptoms are worse ambulating flat ground across the house and improved with nebulizers and steroids. On arrival to ER she was found to have leukocytosis and hypoxia. She was admitted overnight and is feeling significantly better this morning. She remains in a flutter but she is rate controlled in the 70s. [facility] Disclaimer: The information contained in this section may have been updated after the patient was seen, as this information can be updated by other users. Medical History Dyspnea Afib Sinus bradycardia Coronary artery disease Chronic, continuous use of opioids Right rotator cuff tear Hypothyroidism Atrial fibrillation/flutter Pulmonary hypertension Hepatitis C Tobacco dependence (HFpEF) heart failure with preserved ejection fraction Hyperlipidemia Hypertension COPD (chronic obstructive pulmonary disease) Surgical History History of hysterectomy History of surgery on right wrist History of mandibular surgery History of left heart catheterization History of cholecystectomy S/P rotator cuff repair H/O splenectomy History of cardioversion Family History Mother Stroke Father Coronary artery disease Social History Smoking Status: Current every day smoker tobacco type: cigarettes packs per d ay: 1 years smoked: 40 second hand exposure: Yes alcohol intake: never substance use type: denies use current occupational status: unemployed and disabled Travel in the last 8 weeks: Inside the [place] household members: none housing: house lives independently: Yes marital status: single number of children: 3 current occupation: Disabled caffeine: Yes Review of Systems Constitutional Constitutional: Reports fatigue and Reports weakness Eyes Eyes: Denies loss of vision ENT Ears, Nose, Mouth, and Throat: Denies hearing loss and Denies vertigo *Cardiovascular Cardiovascular: Denies chest pain, Reports dyspnea, Reports dyspnea on exertion and Denies syncope Comments: palpitations *Respiratory Respiratory: Reports change in phlegm color, Reports chest congestion, Reports cough, Reports dyspnea, Reports dyspnea on exertion and Reports excessive phlegm production *Gastrointestinal Gastrointestinal: Denies change in stool character, Denies nausea and Denies vomiting *Musculoskeletal Musculoskeletal: Denies muscle weakness Integumentary/Breasts Skin/Breast: Denies changing lesions *Neurologic Neurologic: Denies loss of vision, Denies syncope, Denies vertigo and Reports weakness Endocrine Endocrine: Reports fatigue Exam Data for Last 24 hours Vital signs and Labs for Last 24 Hours: Temp Pulse Resp BP Pulse Ox O2 Del Method O2 Flow Rate 98.1 F 75 17 124/78 93 L Room Air 2 07/19/23 08:00 07/19/23 09:47 07/19/23 08:00 07/19/23 08:00 07/19/23 09:47 07/19/23 09:47 07/19/23 08:00 FiO2 28 07/18/23 19:33 Laboratory Results - last 24 hr 07/18/23 13:05: WBC 15.3 H, RBC 4.43, Hgb 12.6, Hct 41.3, MCV 93.2, MCH 28.4, MCHC 30.5 L, RDW 16.4, Plt Count 366, MPV 8.6, Neut % (Auto) 78.5, Lymph % (Auto) 12.1, [place] % (Auto) 8.0, Eos % (Auto) 0.8, Baso % (Auto) 0.6, Neut # (Auto) 12.0 H, Lymph # (Auto) 1.9, [place] # (Auto) 1.2 H, Eos # (Auto) 0.1, Baso # (Auto) 0.1, Total Counted 100, Neutrophils % (Manual) 59, Band Neutrophils % 20.0 H, Lymphocytes % (Manual) 12, Monocytes % (Manual) 8, Eosinophils % (Manual) 1, Platelet Estimate Normal, Anisocytosis 1+, Spherocytes 1+, Target Cells 1+, Sodium 140, Potassium 3.8, Chloride 108 H, Carbon Dioxide 28, Anion Gap 7.8, BUN 17, Creatinine 0.70, Estimated Creat Clear 96, Estimated GFR 85, Est GFR ( Amer) 103, Glucose 95, Calcium 8.8, Total Bilirubin 0.5, AST 35, ALT 48, Alkaline Phosphatase 125, Troponin I < 0.01, Total Protein 6.8 D, Albumin 3.6, Globulin 3.2, Albumin/Globulin Ratio 1.1, TSH < 0.02 L, Free T4 1.92 07/18/23 13:28: VBG pH 7.38, VBG pCO2 40.9, VBG pO2 64.3 H, VBG HCO3 23.7, VBG Total CO2 24.9, VBG O2 Saturation 92.9 H, VBG Base Excess -1.5, VBG Lactic Acid 1.5 07/18/23 18:10: Troponin I < 0.01 07/18/23 20:30: Troponin I < 0.01 07/19/23 05:42: WBC 15.7 H, RBC 4.13 L, Hgb 12.0 L, Hct 38.8, MCV 94.0, MCH 29.0, MCHC 30.8 L, RDW 16.3, Plt Count 382, MPV 8.4, Neut % (Auto) 94.6 H, Lymph % (Auto) 4.2 L, [place] % (Auto) 1.2 L, Eos % (Auto) 0.0 L, Baso % (Auto) 0.1, Neut # (Auto) 14.9 H, Lymph # (Auto) 0.7, [place] # (Auto) 0.2, Eos # (Auto) 0.0, Baso # (Auto) 0.0, Total Counted 100, Neutrophils % (Manual) 93 H, Lymphocytes % (Manual) 6 L, Monocytes % (Manual) 1 L, Platelet Estimate Normal, RBC Morphology Normal, Sodium 135 L, Potassium 4.5, Chloride 103, Carbon Dioxide 27, Anion Gap 9.5, BUN 21 H, Creatinine 0.90 D, Estimated Creat Clear 74, Estimated GFR 64, Est GFR ( Amer) 77 D, Glucose 162 H D, Calcium 8.7, Magnesium 2.2, Total Bilirubin 0.2, AST 28, ALT 45, Alkaline Phosphatase 105, Total Protein 6.5, Albumin 3.5, Globulin 3.0, Albumin/Globulin Ratio 1.2 I & O for Last 24 hours: Intake & Output 07/16/23 07/17/23 07/18/23 07/19/23 23:59 23:59 23:59 23:59 Intake Total 573.167 / 573.167 600 / 600 Output Total 0 / 0 0 / 0 Balance 573.167 / 573.167 600 / 600 Weight 155 lb 9 oz Microbiology Reports for the Last 24 Hours: Microbiology 07/18/23 21:25 Sputum - Expectorated Sputum Gram Stain - Final Meds Home Medications and Allergies Home Medications Medication Instructions Recorded Confirmed Type duloxetine 30 mg capsule,delayed 30 mg PO DAILY 11/04/20 07/18/23 History release gabapentin 600 mg tablet 600 mg PO BID 11/04/20 07/19/23 History albuterol sulfate 1.25 mg/3 mL 1.25 mg inhalation Q4HP PRN 01/09/21 07/18/23 History solution for nebulization Shortness Of Breath albuterol sulfate 90 mcg/actuation 1 puff inhalation Q4HP PRN 01/10/21 07/18/23 History aerosol inhaler Shortness Of Breath budesonide-formoterol HFA 160 2 puffs inhalation BID 01/10/21 07/18/23 History mcg-4.5 mcg/actuation aerosol inhaler pantoprazole 40 mg tablet,delayed 40 mg PO DAILY GERD #90 tabs 03/04/21 07/18/23 Rx release citalopram 10 mg tablet 10 mg PO DAILY 03/01/22 07/18/23 History diclofenac sodium 1 % topical gel 1 ea topical QIDP PRN Mild Pain 03/01/22 07/18/23 History (Scale Score 1-4) levothyroxine 50 mcg tablet 50 mcg PO DAILY 03/01/22 07/18/23 History mirtazapine 15 mg tablet 15 mg PO HS 03/01/22 07/18/23 History apixaban 5 mg tablet (Eliquis) 5 mg PO BID #60 tabs 01/28/23 07/18/23 Rx aspirin 81 mg tablet,delayed 81 mg PO DAILY #100 tabs 01/28/23 07/18/23 Rx release atorvastatin 40 mg tablet 40 mg PO HS Cholesterol #30 tabs 01/28/23 07/18/23 Rx diltiazem HCl 240 mg capsule,24 240 mg PO BID #60 caps 01/28/23 07/18/23 Rx hr,extended release famotidine 40 mg tablet 40 mg PO BID acid reflux #60 tabs 01/28/23 07/18/23 Rx irbesartan 75 mg tablet 75 mg PO DAILY #30 tabs 01/28/23 07/18/23 Rx diclofenac sodium 75 mg 150 mg PO DAILY 04/13/23 07/18/23 History tablet,delayed release furosemide 20 mg tablet 40 mg PO DAILY 04/13/23 07/18/23 History lidocaine 5 % topical patch 1 patch topical DAILY 04/13/23 07/18/23 History (Lidoderm) meclizine 25 mg chewable tablet 25 mg PO DAILYP PRN Dizziness 04/13/23 07/19/23 History metoprolol succinate 25 mg 25 mg PO DAILY #30 tabs 06/07/23 07/18/23 Rx tablet,extended release 24 hr (Toprol XL) doxycycline hyclate 100 mg capsule 100 mg PO BID 5 days #10 caps 07/13/23 07/18/23 Rx prednisone 20 mg tablet 40 mg (2 x 20 mg) PO DAILY 5 days 07/13/23 07/18/23 Rx #10 tabs empagliflozin 10 mg tablet 10 mg PO DAILY 07/19/23 07/19/23 History (Jardiance) New Prescriptions to Start Prescriptions: Allergies Allergy/AdvReac Type Severity Reaction Status Date / Time codeine Allergy Mild Nausea Verified 04/13/23 15:17 penicillin G [PENICILLIN G] Allergy Mild I-RASH/NV Verified 04/13/23 15:17 acetaminophen [ACETAMINOPHEN] AdvReac Mild NOT Verified 04/13/23 15:17 ALLERGIC. NEED TO WATCH DUE TO LIVER Assessment and Plan *Assessment and plan (1) Atrial flutter with rapid ventricular response: Status: Acute Category: Medical Code(s): I48.92 - Unspecified atrial flutter (2) COPD exacerbation: Status: Acute Category: Medical Code(s): J44.1 - Chronic obstructive pulmonary disease with (acute) exacerbation (3) (HFpEF) heart failure with preserved ejection fraction: Status: Chronic Qualifiers: Heart failure chronicity: chronic Qualified Code(s): I50.32 - Chronic diastolic (congestive) heart failure Category: Medical Code(s): I50.30 - Unspecified diastolic (congestive) heart failure Plan A-flutter, RVR - known dx, exacerbated in setting of acute hypoxia/COPD - rapid on arrival but now rate controlled on home meds - Plan: Consider ALLA/DCCV. Continue Xarelto, BB, CCB. Acute on Chronic Hypoxic Respiratory Failure, COPD Exacerbation - productive cough, wheeze, fatigue - Ab, Steroids, Nebs per primary service - Pulm consult pending HFimpEF - normal ECHO 2021 - ECHO 2020 showed EF 25% - LHC was nonobstructive at that time - presumed resolved myocarditis - cont ARB, BB, SGLT-2 Tob Use - recommend complete cessation. 07/18 summary: CV stable. If pt stays until tomorrow we can keep her NPO overnight and do ALLA/DCCV tomorrow. If she is otherwise ready to be discharged today then she can remain on rate control meds and we can f/u with her in office in 1 week, after COPD exacerbation resolves, and consider ALLA/DCCV at that time.
--- NOTE | 2023-07-19 10:29 | P.CONS_ITS ---
History of Present Illness History of present illness: is a 62-year-old female with reported history of COPD, using oxygen intermittently during the daytime, tobacco abuse, A-fib diastolic heart failure presented to the ER with worsening respiratory distress and pulmonary was called for further evaluation and management. [facility] Disclaimer: The information contained in this section may have been updated after the patient was seen, as this information can be updated by other users. Medical History Dyspnea Afib Sinus bradycardia Coronary artery disease Chronic, continuous use of opioids Right rotator cuff tear Hypothyroidism Atrial fibrillation/flutter Pulmonary hypertension Hepatitis C Tobacco dependence (HFpEF) heart failure with preserved ejection fraction Hyperlipidemia Hypertension COPD (chronic obstructive pulmonary disease) Surgical History History of hysterectomy History of surgery on right wrist History of mandibular surgery History of left heart catheterization History of cholecystectomy S/P rotator cuff repair H/O splenectomy History of cardioversion Family History Mother Stroke Father Coronary artery disease Social History Smoking Status: Current every day smoker tobacco type: cigarettes packs per day: 1 years smoked: 40 second hand exposure: Yes alcohol intake: never substance use type: denies use current occupational status: unemployed and disabled Travel in the last 8 weeks: Inside the [place] household members: none housing: house lives independently: Yes marital status: single number of children: 3 current occupation: Disabled caffeine: Yes Review of Systems Constitutional Constitutional: Denies anorexia, Denies body ache(s) and Reports fatigue Eyes Eyes: Denies eye discharge, Denies dry eyes, Denies irritation and Denies itchy eyes ENT Ears, Nose, Mouth, and Throat: Denies epistaxis, Denies facial pain, Denies lip swelling and Denies throat swelling *Cardiovascular Cardiovascular: Reports dyspnea and Reports dyspnea on exertion *Respiratory Respiratory: Reports chest congestion, Reports cough, Reports dyspnea, Reports dyspnea on exertion, Reports excessive phlegm production and Reports wheezing *Gastrointestinal Gastrointestinal: Denies abdominal pain, Denies belching and Denies cramping *Musculoskeletal Musculoskeletal: Reports back pain, Reports myalgias and Reports other (No small joint swelling or Pain) Psychiatric Psychiatric: Denies homicidal ideation and Denies suicidal ideation Endocrine Endocrine: Reports fatigue and Denies heat intolerance Hematologic/Lymphatic Hematologic/Lymphatic: Denies easy bleeding and Denies lymphadenopathy Allergic/Immunologic Allergic/Immunologic: Denies itchy eyes, Denies lip swelling, Denies throat swelling and Reports wheezing Pulmonology Exam Inpatient Vital signs and Labs for Last 24 Hours: Temp Pulse Resp BP Pulse Ox O2 Del Method O2 Flow Rate 98.1 F 75 17 124/78 93 L Room Air 2 07/19/23 08:00 07/19/23 09:47 07/19/23 08:00 07/19/23 08:00 07/19/23 09:47 07/19/23 09:47 07/19/23 08:00 FiO2 28 07/18/23 19:33 Laboratory Results - last 24 hr 07/18/23 13:05: WBC 15.3 H, RBC 4.43, Hgb 12.6, Hct 41.3, MCV 93.2, MCH 28.4, M CHC 30.5 L, RDW 16.4, Plt Count 366, MPV 8.6, Neut % (Auto) 78.5, Lymph % (Auto) 12.1, [place] % (Auto) 8.0, Eos % (Auto) 0.8, Baso % (Auto) 0.6, Neut # (Auto) 12.0 H, Lymph # (Auto) 1.9, [place] # (Auto) 1.2 H, Eos # (Auto) 0.1, Baso # (Auto) 0.1, Total Counted 100, Neutrophils % (Manual) 59, Band Neutrophils % 20.0 H, Lymphocytes % (Manual) 12, Monocytes % (Manual) 8, Eosinophils % (Manual) 1, Platelet Estimate Normal, Anisocytosis 1+, Spherocytes 1+, Target Cells 1+, Sodium 140, Potassium 3.8, Chloride 108 H, Carbon Dioxide 28, Anion Gap 7.8, BUN 17, Creatinine 0.70, Estimated Creat Clear 96, Estimated GFR 85, Est GFR ( Amer) 103, Glucose 95, Calcium 8.8, Total Bilirubin 0.5, AST 35, ALT 48, Alkaline Phosphatase 125, Troponin I < 0.01, Total Protein 6.8 D, Albumin 3.6, Globulin 3.2, Albumin/Globulin Ratio 1.1, TSH < 0.02 L, Free T4 1.92 07/18/23 13:28: VBG pH 7.38, VBG pCO2 40.9, VBG pO2 64.3 H, VBG HCO3 23.7, VBG Total CO2 24.9, VBG O2 Saturation 92.9 H, VBG Base Excess -1.5, VBG Lactic Acid 1.5 07/18/23 18:10: Troponin I < 0.01 07/18/23 20:30: Troponin I < 0.01 07/19/23 05:42: WBC 15.7 H, RBC 4.13 L, Hgb 12.0 L, Hct 38.8, MCV 94.0, MCH 29.0, MCHC 30.8 L, RDW 16.3, Plt Count 382, MPV 8.4, Neut % (Auto) 94.6 H, Lymph % (Auto) 4.2 L, [place] % (Auto) 1.2 L, Eos % (Auto) 0.0 L, Baso % (Auto) 0.1, Neut # (Auto) 14.9 H, Lymph # (Auto) 0.7, [place] # (Auto) 0.2, Eos # (Auto) 0.0, Baso # (Auto) 0.0, Total Counted 100, Neutrophils % (Manual) 93 H, Lymphocytes % (Manual) 6 L, Monocytes % (Manual) 1 L, Platelet Estimate Normal, RBC Morphology Normal, Sodium 135 L, Potassium 4.5, Chloride 103, Carbon Dioxide 27, Anion Gap 9.5, BUN 21 H, Creatinine 0.90 D, Estimated Creat Clear 74, Estimated GFR 64, E st GFR ( Amer) 77 D, Glucose 162 H D, Calcium 8.7, Magnesium 2.2, Total Bilirubin 0.2, AST 28, ALT 45, Alkaline Phosphatase 105, Total Protein 6.5, Albumin 3.5, Globulin 3.0, Albumin/Globulin Ratio 1.2 I & O for Labs for Last 24 Hours: Intake & Output 07/16/23 07/17/23 07/18/23 07/19/23 23:59 23:59 23:59 23:59 Intake Total 573.167 / 573.167 600 / 600 Output Total 0 / 0 0 / 0 Balance 573.167 / 573.167 600 / 600 Weight 155 lb 9 oz Microbiology Reports for the Last 24 Hours: Microbiology 07/18/23 21:25 Sputum - Expectorated Sputum Gram Stain - Final Constitutional: Present mild distress Head: Present normocephalic and atraumatic ENT: Present normal exam, normal oropharynx and mucous membranes moist Neck: Present normal inspection and full ROM Respiratory: Present respiratory distress and able to speak in complete sentences; Absent prolonged expiratory phase, wheezes, crackles or diminished air movement Cardiac: Present S1/S2, Tachycardia and radial pulses present GI: Present soft and distention; Absent tenderness or guarding Rectal (female): Present deferred (female): Present deferred Skin: Present intact; Absent cyanosis or jaundice Neuro: Present alert, awake and oriented x 3 Extremities: Present normal inspection; Absent clubbing or cyanosis Psychiatric: Present normal affect and cooperative Meds Home Medications and Allergies Home Medications Medication Instructions Recorded Confirmed Type duloxetine 30 mg capsule,delayed 30 mg PO DAILY 11/04/20 07/18/23 History release gabapentin 600 mg tablet 600 mg PO BID 11/04/20 07/19/23 History albuterol sulfate 1.25 mg/3 mL 1.25 mg inhalation Q4HP PRN 01/09/21 07/18/23 History solution for nebulization Shortness Of Breath albuterol sulfate 90 mcg/actuation 1 puff inhalation Q4HP PRN 01/10/21 07/18/23 History aerosol inhaler Shortness Of Breath budesonide-formoterol HFA 160 2 puffs inhalation BID 01/10/21 07/18/23 History mcg-4.5 mcg/actuation aerosol inhaler pantoprazole 40 mg tablet,delayed 40 mg PO DAILY GERD #90 tabs 03/04/21 07/18/23 Rx release citalopram 10 mg tablet 10 mg PO DAILY 03/01/22 07/18/23 History diclofenac sodium 1 % topical gel 1 ea topical QIDP PRN Mild Pain 03/01/22 07/18/23 History (Scale Score 1-4) levothyroxine 50 mcg tablet 50 mcg PO DAILY 03/01/22 07/18/23 History mirtazapine 15 mg tablet 15 mg PO HS 03/01/22 07/18/23 History apixaban 5 mg tablet (Eliquis) 5 mg PO BID #60 tabs 01/28/23 07/18/23 Rx aspirin 81 mg tablet,delayed 81 mg PO DAILY #100 tabs 01/28/23 07/18/23 Rx release atorvastatin 40 mg tablet 40 mg PO HS Cholesterol #30 tabs 01/28/23 07/18/23 Rx diltiazem HCl 240 mg capsule,24 240 mg PO BID #60 caps 01/28/23 07/18/23 Rx hr,extended release famotidine 40 mg tablet 40 mg PO BID acid reflux #60 tabs 01/28/23 07/18/23 Rx irbesartan 75 mg tablet 75 mg PO DAILY #30 tabs 01/28/23 07/18/23 Rx diclofenac sodium 75 mg 150 mg PO DAILY 04/13/23 07/18/23 History tablet,delayed release furosemide 20 mg tablet 40 mg PO DAILY 04/13/23 07/18/23 History lidocaine 5 % topical patch 1 patch topical DAILY 04/13/23 07/18/23 History (Lidoderm) meclizine 25 mg chewable tablet 25 mg PO DAILYP PRN Dizziness 04/13/23 07/19/23 History metoprolol succinate 25 mg 25 mg PO DAILY #30 tabs 06/07/23 07/18/23 Rx tablet,extended release 24 hr (Toprol XL) doxycycline hyclate 100 mg capsule 100 mg PO BID 5 days #10 caps 07/13/23 07/18/23 Rx prednisone 20 mg tablet 40 mg (2 x 20 mg) PO DAILY 5 days 07/13/23 07/18/23 Rx #10 tabs empagliflozin 10 mg tablet 10 mg PO DAILY 07/19/23 07/19/23 History (Jardiance) New Prescriptions to Start Prescriptions: Allergies Allergy/AdvReac Type Severity Reaction Status Date / Time codeine Allergy Mild Nausea Verified 04/13/23 15:17 penicillin G [PENICILLIN G] Allergy Mild I-RASH/NV Verified 04/13/23 15:17 acetaminophen [ACETAMINOPHEN] AdvReac Mild NOT Verified 04/13/23 15:17 ALLERGIC. NEED TO WATCH DUE TO LIVER Results Laboratory Findings 07/19/23 05:42 07/19/23 05:42 Abnormal lab findings: Abnormal Labs 07/18/23 07/18/23 07/19/23 13:05 13:28 05:42 WBC 15.3 H 15.7 H RBC 4.13 L Hgb 12.0 L MCHC 30.5 L 30.8 L Neut % (Auto) 94.6 H Lymph % (Auto) 4.2 L [place] % (Auto) 1.2 L Eos % (Auto) 0.0 L Neut # (Auto) 12.0 H 14.9 H [place] # (Auto) 1.2 H Neutrophils % (Manual) 93 H Band Neutrophils % 20.0 H Lymphocytes % (Manual) 6 L Monocytes % (Manual) 1 L VBG pO2 64.3 H VBG O2 Saturation 92.9 H Sodium 135 L Chloride 108 H BUN 21 H Glucose 162 H D TSH < 0.02 L Assessment and Plan *Assessment and plan (1) COPD exacerbation: Status: Acute Category: Medical Code(s): J44.1 - Chronic obstructive pulmonary disease with (acute) exacerbation (2) Pneumonia: Status: Acute Category: Medical Code(s): J18.9 - Pneumonia, unspecified organism Plan is a 62-year-old female with reported history of COPD, using oxygen intermittently during the daytime, tobacco abuse, A-fib diastolic heart failure presented to the ER with worsening respiratory distress and pulmonary was called for further evaluation and management. Patient recently presented respiratory distress discharged on prednisone and doxycycline for COPD exacerbation. CTA upon admission no evidence of pulmonary embolism. Extensive blood prominent emphysematous changes noted. Right upper lobe and lower lobe airspace disease noted with no dense consolidative changes. Upon admission, afebrile. Hemodynamically stable. Neutrophilic predominant leukocytosis. Currently receiving methylprednisolone, ceftriaxone azithromycin along with nebulization therapies. On examination patient appeared to be in only mild respiratory distress. On room air saturating 95% and above. At baseline using oxygen supplementation during the daytime on as-needed basis. Admits using nocturnal oxygen supplementation. Good symptom control on Symbicort inhaler. Plan: Wean steroids to prednisone 40 mg daily to complete a total of 5-day course Wean antibiotics to cefdinir to complete a total of 5-day course Patient can be discharged home on home inhaler therapy which include Symbicort 160, 2 puffs twice daily along with DuoNebs QID on as-needed basis Nicotine patches to facilitate smoking cessation # Thank you for involving pulmonary in this patient care we will follow the patient in 1 to 2 weeks for posthospital follow-up visit.
--- NOTE | 2023-07-19 11:33 | EXP.DC.SUM ---
General Admission date:: 07/18/23 Discharge date: 07/19/23 HPI HPI HPI: Ms. Buchanan is a 62-year-old female with COPD, continued tobacco use disorder, A-fib, diastolic heart failure. She presented to the ER with worsening shortness of breath. Symptoms began about a week ago. She was seen earlier this week in the ER and treated for COPD exacerbation and discharged home. States that she had improvement in her sputum production but continued to be short of breath and was developing chest tightness. Sputum initially yellow and thick, showed some clearing over the past day or 2. Was having to wear oxygen at home. Normally wears 2-2 and half liters as needed, was having to wear oxygen continuously. Came to the ER for further evaluation today. Continues to have intermittent cough, no nausea or vomiting. Continues to smoke up until Wednesday. Smokes 1/2 pack a day. Alert and oriented x 4. Workup in the ER positive for leukocytosis (has been on steroids for 2 to 3 days), hypoxia necessitating continuous oxygen, and CT of chest with concern for airspace disease in the setting of severe emphysema. Medicine consulted for admission. Patient still complaining of some chest soreness, across her chest and into her back. States it hurts and it is tight. Has been coughing a lot and breathing using accessory muscles. Is otherwise alert and oriented. Hungry at this time. Hemodynamically stable. Stable on 2 L with sats in the low 90s. Hospital Course Hospital Course Hospital Course: 62-year-old female with emphysema, a flutter, heart failure with preserved ejection fraction. Presented to the ER because of worsening shortness of breath and chest tightness. Found to have a flutter with RVR and pneumonia superimposed on COPD exacerbation. Discussed case with ER physician, request admission for inpatient management as patient was initiated on diltiazem drip. Medicine agreed to admit for further management. Heart rate showing improvement in the 70s on exam. Continuing drip at this time. On 2 L continuous oxygen. Still having chest tightness. Initial troponin nonactionable. Pulmonology and cardiology consulted to see patient during admission. Patient did well. Transition to oral therapy for her pneumonia. Heart rate improved with resumption of home regimen. No changes per cardiology. Stable to discharge home. Problems addressed as follows: Pneumonia COPD exacerbation Acute on chronic hypoxemic respiratory failure -Requiring increased oxygen from baseline with continuous need for 2 to 3 L. Started on DuoNebs and antibiotics for pneumonia with COPD exacerbation. Personally reviewed imaging, patient has severe bullous emphysema in her upper lobes with lower lobe consolidation concerning for pneumonia. Pulmonology was consulted. Recommend transitioning to cefdinir to complete 5 days of antibiotics for pneumonia. Transition to oral prednisone to complete 40 mg daily for total of 5 days. Stable to discharge home with her home oxygen. Close follow-up with pulmonology in the coming weeks. Atrial flutter with RVR Chronic heart failure with preserved ejection fraction -Initially with tachyarrhythmia. Started on diltiazem drip. Improved by arrival to the floor. Resumed home regimen with diltiazem 240 mg extended release twice daily. Able to wean off drip. Cardiology was consulted, no adjustments made to regimen. Continue home regimen as follows: -Continue metoprolol succinate 25 mg daily -Continue Lasix 40 mg daily - Continue irbesartan 75 mg daily -Continue empagliflozin 10 mg -Continue Eliquis 5 mg twice daily TSH less than 0.02, will hold levothyroxine during admission. Holding at discharge. Recommend repeat TSH in 4 to 6 weeks to monitor labs. If continues to have suppressed TSH, needs further workup for possible hyperthyroidism. Continue mirtazapine 15 mg nightly for sleep Continue gabapentin 600 mg daily for pain Continue Lipitor 40 mg daily for hyperlipidemia Continue citalopram 10mg daily for mood Can you Cymbalta 30 mg daily for mood/depression Continue famotidine 40 mg twice daily and pantoprazole 40 mg daily for GERD Tobacco use disorder: Counseled on smoking cessation. Nicotine patch as needed Total time spent on discharge 35 minutes in counseling, documentation, chart review, and direct care with patient. Exam Data for Last 24 hours Vital signs and Labs for Last 24 Hours: Temp Pulse Resp BP Pulse Ox O2 Del Method O2 Flow Rate 98.1 F 75 20 119/84 96 Room Air 2 07/19/23 08:00 07/19/23 10:00 07/19/23 10:00 07/19/23 10:00 07/19/23 10:00 07/19/23 10:42 07/19/23 08:00 FiO2 28 07/18/23 19:33 Laboratory Results - last 24 hr 07/18/23 13:05: WBC 15.3 H, RBC 4.43, Hgb 12.6, Hct 41.3, MCV 93.2, MCH 28.4, MCHC 30.5 L, RDW 16.4, Plt Count 366, MPV 8.6, Neut % (Auto) 78.5, Lymph % (Auto) 12.1, Walker % (Auto) 8.0, Eos % (Auto) 0.8, Baso % (Auto) 0.6, Neut # (Auto) 12.0 H, Lymph # (Auto) 1.9, Walker # (Auto) 1.2 H, Eos # (Auto) 0.1, Baso # (Auto) 0.1, Total Counted 100, Neutrophils % (Manual) 59, Band Neutrophils % 20.0 H, Lymphocytes % (Manual) 12, Monocytes % (Manual) 8, Eosinophils % (Manual) 1, Platelet Estimate Normal, Anisocytosis 1+, Spherocytes 1+, Target Cells 1+, Sodium 140, Potassium 3.8, Chloride 108 H, Carbon Dioxide 28, Anion Gap 7.8, BUN 17, Creatinine 0.70, Estimated Creat Clear 96, Estimated GFR 85, Est GFR ( Amer) 103, Glucose 95, Calcium 8.8, Total Bilirubin 0.5, AST 35, ALT 48, Alkaline Phosphatase 125, Troponin I < 0.01, Total Protein 6.8 D, Albumin 3.6, Globulin 3.2, Albumin/Globulin Ratio 1.1, TSH < 0.02 L, Free T4 1.92 07/18/23 13:28: VBG pH 7.38, VBG pCO2 40.9, VBG pO2 64.3 H, VBG HCO3 23.7, VBG Total CO2 24.9, VBG O2 Saturation 92.9 H, VBG Base Excess -1.5, VBG Lactic Acid 1.5 07/18/23 18:10: Troponin I < 0.01 07/18/23 20:30: Troponin I < 0.01 07/19/23 05:42: WBC 15.7 H, RBC 4.13 L, Hgb 12.0 L, Hct 38.8, MCV 94.0, MCH 29.0, MCHC 30.8 L, RDW 16.3, Plt Count 382, MPV 8.4, Neut % (Auto) 94.6 H, Lymph % (Auto) 4.2 L, Walker % (Auto) 1.2 L, Eos % (Auto) 0.0 L, Baso % (Auto) 0.1, Neut # (Auto) 14.9 H, Lymph # (Auto) 0.7, Walker # (Auto) 0.2, Eos # (Auto) 0.0, Baso # (Auto) 0.0, Total Counted 100, Neutrophils % (Manual) 93 H, Lymphocytes % (Manual) 6 L, Monocytes % (Manual) 1 L, Platelet Estimate Normal, RBC Morphology Normal, Sodium 135 L, Potassium 4.5, Chloride 103, Carbon Dioxide 27, Anion Gap 9.5, BUN 21 H, Creatinine 0.90 D, Estimated Creat Clear 74, Estimated GFR 64, Est GFR ( Amer) 77 D, Glucose 162 H D, Calcium 8.7, Magnesium 2.2, Total Bilirubin 0.2, AST 28, ALT 45, Alkaline Phosphatase 105, Total Protein 6.5, Albumin 3.5, Globulin 3.0, Albumin/Globulin Ratio 1.2 I & O for Last 24 hours: Intake & Output 07/16/23 07/17/23 07/18/23 07/19/23 23:59 23:59 23:59 23:59 Intake Total 573.167 / 573.167 600 / 600 Output Total 0 / 0 0 / 0 Balance 573.167 / 573.167 600 / 600 Weight 70.562 kg Microbiology Reports for the Last 24 Hours: Microbiology 07/18/23 21:25 Sputum - Expectorated Sputum Gram Stain - Final Constitutional Constitutional: no acute distress, chronically ill appearing and cooperative *Routine HEENT Exam Head: Present normocephalic Eye: Present EOMI and PERRL ENT: Present mucous membranes moist *Routine Neck Exam Neck: Present supple; Absent lymphadenopathy *Routine Respiratory Exam Respiratory: Present prolonged expiratory phase, rhonchi, wheezes, diminished air movement, normal respiratory effort and symmetric chest movement *Routine Cardiovascular Exam Cardiovascular: Present irregular rhythm; Absent murmur *Routine Abdominal Exam Abdominal: Present soft and normoactive bowel sounds; Absent tenderness *Routine Rectal Exam Patient deferred: visual exam *Routine Exam Patient deferred: external exam *Routine Extremities Exam Extremities: Present full ROM, pulses intact and normal capillary refill; Absent cyanosis, clubbing or edema *Routine Skin Exam Skin: Present warm; Absent rash *Routine Neurological Exam Neurological: Present alert, oriented X3, moving all extremities, normal tone, vision grossly intact, hearing grossly intact and normal speech Routine Psychiatric Exam Psychiatric: Present normal affect, normal thought process, cooperative, good insight and good judgment Results Data Completed and Pending Labs on day of discharge: Labs from last 24 hours 07/19/23 07/18/23 07/18/23 05:42 20:30 18:10 WBC 15.7 H RBC 4.13 L Hgb 12.0 L Hct 38.8 MCV 94.0 MCH 29.0 MCHC 30.8 L RDW 16.3 Plt Count 382 MPV 8.4 Neut % (Auto) 94.6 H Lymph % (Auto) 4.2 L Walker % (Auto) 1.2 L Eos % (Auto) 0.0 L Baso % (Auto) 0.1 Neut # (Auto) 14.9 H Lymph # (Auto) 0.7 Walker # (Auto) 0.2 Eos # (Auto) 0.0 Baso # (Auto) 0.0 Total Counted 100 Neutrophils % (Manual) 93 H Band Neutrophils % Lymphocytes % (Manual) 6 L Monocytes % (Manual) 1 L Eosinophils % (Manual) Platelet Estimate Normal RBC Morphology Normal Anisocytosis Spherocytes Target Cells VBG pH VBG pCO2 VBG pO2 VBG HCO3 VBG Total CO2 VBG O2 Saturation VBG Base Excess VBG Lactic Acid Sodium 135 L Potassium 4.5 Chloride 103 Carbon Dioxide 27 Anion Gap 9.5 BUN 21 H Creatinine 0.90 D Estimated Creat Clear 74 Estimated GFR 64 Est GFR ( Amer) 77 D Glucose 162 H D Calcium 8.7 Magnesium 2.2 Total Bilirubin 0.2 AST 28 ALT 45 Alkaline Phosphatase 105 Troponin I < 0.01 < 0.01 Total Protein 6.5 Albumin 3.5 Globulin 3.0 Albumin/Globulin Ratio 1.2 TSH Free T4 07/18/23 07/18/23 13:28 13:05 WBC 15.3 H RBC 4.43 Hgb 12.6 Hct 41.3 MCV 93.2 MCH 28.4 MCHC 30.5 L RDW 16.4 Plt Count 366 MPV 8.6 Neut % (Auto) 78.5 Lymph % (Auto) 12.1 Walker % (Auto) 8.0 Eos % (Auto) 0.8 Baso % (Auto) 0.6 Neut # (Auto) 12.0 H Lymph # (Auto) 1.9 Walker # (Auto) 1.2 H Eos # (Auto) 0.1 Baso # (Auto) 0.1 Total Counted 100 Neutrophils % (Manual) 59 Band Neutrophils % 20.0 H Lymphocytes % (Manual) 12 Monocytes % (Manual) 8 Eosinophils % (Manual) 1 Platelet Estimate Normal RBC Morphology Anisocytosis 1+ Spherocytes 1+ Target Cells 1+ VBG pH 7.38 VBG pCO2 40.9 VBG pO2 64.3 H VBG HCO3 23.7 VBG Total CO2 24.9 VBG O2 Saturation 92.9 H VBG Base Excess -1.5 VBG Lactic Acid 1.5 Sodium 140 Potassium 3.8 Chloride 108 H Carbon Dioxide 28 Anion Gap 7.8 BUN 17 Creatinine 0.70 Estimated Creat Clear 96 Estimated GFR 85 Est GFR ( Amer) 103 Glucose 95 Calcium 8.8 Magnesium Total Bilirubin 0.5 AST 35 ALT 48 Alkaline Phosphatase 125 Troponin I < 0.01 Total Protein 6.8 D Albumin 3.6 Globulin 3.2 Albumin/Globulin Ratio 1.1 TSH < 0.02 L Free T4 1.92 DS: Diagnosis Discharge Diagnosis (1) COPD exacerbation: Status: Acute Code(s): J44.1 - Chronic obstructive pulmonary disease with (acute) exacerbation (2) Pneumonia: Status: Acute Code(s): J18.9 - Pneumonia, unspecified organism Meds Home Medications and Allergies Home Medications Medication Instructions Recorded Confirmed Type duloxetine 30 mg capsule,delayed 30 mg PO DAILY 11/04/20 07/18/23 History release gabapentin 600 mg tablet 600 mg PO BID 11/04/20 07/19/23 History albuterol sulfate 90 mcg/actuation 1 puff inhalation Q4HP PRN 01/10/21 07/18/23 History aerosol inhaler Shortness Of Breath budesonide-formoterol HFA 160 2 puffs inhalation BID 01/10/21 07/18/23 History mcg-4.5 mcg/actuation aerosol inhaler pantoprazole 40 mg tablet,delayed 40 mg PO DAILY GERD #90 tabs 03/04/21 07/18/23 Rx release citalopram 10 mg tablet 10 mg PO DAILY 03/01/22 07/18/23 History diclofenac sodium 1 % topical gel 1 ea topical QIDP PRN Mild Pain 03/01/22 07/18/23 History (Scale Score 1-4) levothyroxine 50 mcg tablet 50 mcg PO DAILY 03/01/22 07/18/23 History mirtazapine 15 mg tablet 15 mg PO HS 03/01/22 07/18/23 History apixaban 5 mg tablet (Eliquis) 5 mg PO BID #60 tabs 01/28/23 07/18/23 Rx aspirin 81 mg tablet,delayed 81 mg PO DAILY #100 tabs 01/28/23 07/18/23 Rx release atorvastatin 40 mg tablet 40 mg PO HS Cholesterol #30 tabs 01/28/23 07/18/23 Rx diltiazem HCl 240 mg capsule,24 240 mg PO BID #60 caps 01/28/23 07/18/23 Rx hr,extended release famotidine 40 mg tablet 40 mg PO BID acid reflux #60 tabs 01/28/23 07/18/23 Rx irbesartan 75 mg tablet 75 mg PO DAILY #30 tabs 01/28/23 07/18/23 Rx diclofenac sodium 75 mg 150 mg PO DAILY 04/13/23 07/18/23 History tablet,delayed release furosemide 20 mg tablet 40 mg PO DAILY 04/13/23 07/18/23 History lidocaine 5 % topical patch 1 patch topical DAILY 04/13/23 07/18/23 History (Lidoderm) meclizine 25 mg chewable tablet 25 mg PO DAILYP PRN Dizziness 04/13/23 07/19/23 History metoprolol succinate 25 mg 25 mg PO DAILY #30 tabs 06/07/23 07/18/23 Rx tablet,extended release 24 hr (Toprol XL) prednisone 20 mg tablet 40 mg (2 x 20 mg) PO DAILY 5 days 07/13/23 07/18/23 Rx #10 tabs cefdinir 300 mg capsule 300 mg PO BID 4 days #8 caps 07/19/23 Rx empagliflozin 10 mg tablet 10 mg PO DAILY 07/19/23 07/19/23 History (Jardiance) ipratropium 0.5 mg-albuterol 3 mg 3 ml inhalation QID PRN wheezing 07/19/23 Rx (2.5 mg base)/3 mL nebulization #180 mL soln ketorolac 10 mg tablet 10 mg PO Q6H PRN pain 4 days #16 07/19/23 Rx tabs nicotine 14 mg/24 hr daily 1 patch transdermal DAILY #28 ea 07/19/23 Rx transdermal patch New Prescriptions to Start Prescriptions: cefdinir Elba,Salazar ipratropium-albuterol Elba,Salazar ketorolac Elba,Salazar nicotine Elba,Salazar Allergies Allergy/AdvReac Type Severity Reaction Status Date / Time codeine Allergy Mild Nausea Verified 04/13/23 15:17 penicillin G [PENICILLIN G] Allergy Mild I-RASH/NV Verified 04/13/23 15:17 acetaminophen [ACETAMINOPHEN] AdvReac Mild NOT Verified 04/13/23 15:17 ALLERGIC. NEED TO WATCH DUE TO LIVER Discharge Plan Disposition Patient Disposition: Home, Self-Care Condition: Fair Follow up Plan Follow up with: Solange Mills APRN [Referring] - 07/26/23 9:30 am Eden Darling MD [Physician] - 07/27/23 1:00 pm Irvin Ruano MD [Staff Physician] - 08/04/23 1:30 pm Prescriptions/Medication Reconciliation: New nicotine 14 mg/24 hr patch 24 hour 1 patch transdermal DAILY Qty: 28 2RF ipratropium-albuterol 0.5 mg-3 mg(2.5 mg base)/3 mL solution for nebulization 3 ml inhalation QID PRN (Reason: wheezing) Qty: 180 1RF cefdinir 300 mg capsule 300 mg PO BID 4 Days Qty: 8 0RF ketorolac 10 mg tablet 10 mg PO Q6H PRN (Reason: pain) 4 Days Qty: 16 0RF Rx Instructions: tolerated IV formulation during admission Continued gabapentin 600 mg tablet 600 mg PO BID Patient Comments: TAKE 1 TABLET BY MOUTH ONCE DAILY FOR PAIN duloxetine 30 mg capsule,delayed release(DR/EC) 30 mg PO DAILY pantoprazole 40 mg tablet,delayed release (DR/EC) 40 mg PO DAILY Qty: 90 3RF lidocaine [Lidoderm] 5 % adhesive patch,medicated 1 patch topical DAILY meclizine 25 mg tablet,chewable 25 mg PO DAILYP PRN (Reason: Dizziness) furosemide 20 mg tablet 40 mg PO DAILY Eliquis 5 mg tablet 5 mg PO BID Qty: 60 5RF aspirin 81 mg tablet,delayed release (DR/EC) 81 mg PO DAILY Qty: 100 3RF atorvastatin 40 mg tablet 40 mg PO HS Qty: 30 3RF diltiazem HCl 240 mg capsule,extended release 24 hr 240 mg PO BID Qty: 60 5RF famotidine 40 mg tablet 40 mg PO BID Qty: 60 5RF irbesartan 75 mg tablet 75 mg PO DAILY Qty: 30 3RF metoprolol succinate [Toprol XL] 25 mg tablet extended release 24 hr 25 mg PO DAILY Qty: 30 5RF albuterol sulfate 8.5 GM HFA aerosol inhaler 1 puff inhalation Q4HP PRN (Reason: Shortness Of Breath) budesonide-formoterol 10.2 GM HFA aerosol inhaler 2 puffs inhalation BID prednisone 20 mg tablet 40 mg PO DAILY 5 Days Qty: 10 0RF citalopram 10 mg tablet 10 mg PO DAILY diclofenac sodium 1 % gel 1 ea TOPICAL QIDP PRN (Reason: Mild Pain (Scale Score 1-4)) mirtazapine 15 mg tablet 15 mg PO HS Jardiance 10 mg tablet 10 mg PO DAILY Held diclofenac sodium 75 mg tablet,delayed release (DR/EC) 150 mg PO DAILY Hold Instructions: until finishing the toradol levothyroxine 50 mcg tablet 50 mcg PO DAILY Hold Instructions: pending re-evaluation of thyroid function in 4-6 weeks Discontinued albuterol sulfate 1.25 MG/3 ML solution for nebulization 1.25 mg inhalation Q4HP PRN (Reason: Shortness Of Breath) doxycycline hyclate 100 mg capsule 100 mg PO BID 5 Days Qty: 10 0RF Problem Reconciliation Problems Reviewed?: Yes Patient Discharge Instructions ACTIVITY: Continue current activity DIET: continue same diet Patient Instructions: DI for Chronic Obstructive Pulmonary Disease, DI for Pneumonia -- Adult Providers Primary Care Provider: Provider,Referral Admit Provider: Salazar Arreola Attending Provider: Salazar Arreola
--- NOTE | 2023-07-19 11:33 | PC.NURSE ---
I had pt complete a walking trial (per Jade) to see if her 02 sat dropped. pt was satting in high 80s throughout. pt had one period where her 02 sat was 77%. pt stated she had no sob and felt fine. no new orders at this time.
--- NOTE | 2023-07-20 12:46 | CARE MANAGER ---
Contacted patient related to hospital discharge. She states she feels the same. She did pickling solution maker her medication and is aware of all follow up appointments. TENISHA Vaz
== END 2023-07-19 12:50 | disposition home or self-care (01) ==
LOC: ER 14:37 → 2ND 16:14
PROVIDERS: Admitting Provider Internal Medicine Adolescent Medicine; Emergency Provider Emergency Medicine; Visit Provider Internal Medicine Adolescent Medicine
DX: J18.9 Pneumonia, unspecified organism (principal); J44.1 Chronic obstructive pulmonary disease with (acute) exacerbation; I50.32 Chronic diastolic (congestive) heart failure; F17.210 Nicotine dependence, cigarettes, uncomplicated; I11.0 Hypertensive heart disease with heart failure; I25.10 Atherosclerotic heart disease of native coronary artery without angina pectoris; E78.2 Mixed hyperlipidemia; Z79.899 Other long term (current) drug therapy; I48.0 Paroxysmal atrial fibrillation; Z99.81 Dependence on supplemental oxygen; R06.02 Shortness of breath; Z79.01 Long term (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; I27.20 Pulmonary hypertension, unspecified; J96.11 Chronic respiratory failure with hypoxia
CPT/HCPCS: 36415; 71275; 80053; 82803; 83735; 84439; 84443; 84484; 85007; 85025; 87040; 87070; 87205; 93005; 94640; 94760; 94761; 99291; G0378; J0131; J0456; J0696; J1885; J2270; J2930; J7030; J7120; J7614; J7620; J7644; Q9967

== ENCOUNTER 2023-08-11 11:23 | Day surgery (SDC) | payer MEDICAID, SELFPAY ==
[2023-08-11 07:57] VITALS: BMI 22.1
--- OUTSIDE RECORDS SUMMARY | 2023-08-11 11:25 | XMS_ITS ---
Author Name Unknown Address [address] [place] [address] Phone Organization [facility] Address [address] [place] [address] Phone Care Team Providers Care Lift Electrician Name Role Phone Jose TAFOYA, Mamadou Ryan [...] Procedures Code Procedure Name Date Entry Date CPT-68190 CMP CPT-17853 Sedimentation Rate (ESR) 202 04/14/05 CPT-97997 C- reactive protein [id number] CBC with Differential 2022 CPT-sl STAT Labs [...]
--- OUTSIDE RECORDS SUMMARY | 2023-08-11 11:25 | XMS_ITS ---
Author Name Unknown Address [address] [place] [address] Phone Organization [facility] Address [address] [place] [address] Phone Care Team Providers Care Oyster Preparer Name Role Phone Eduard Redding MD Conditions or Problems No information available. Medications [...] Procedures Code Procedure Name Date Entry Date [id number] CBC with Differential 2022 CPT-98500 CMP CPT-84401 C- reactive protein CPT-15678 Sedimentation Rate (ESR) 202 04/14/17 Vital Signs [...]
--- OUTSIDE RECORDS SUMMARY | 2023-08-11 11:25 | XMS_ITS | Clinical Summary ---
Author Name Unknown Address [address] [place] [address] Phone Organization [facility] Address [address] [place] [address] Phone Care Team Providers Care Business Development Recruiter Name Role Phone Connor STEVEN, Alla Lacy Unavailable Conditions or Problems Problem Name Problem Code Onset Date Status Entry Date Provider Comment Standard Description Annotate Effusion, right shoulder M25.411 (ICD-10-CM ) 08/12 Active 08/12 Selma Adán Effusion, right shoulder Persistent atrial fibrillation 950945481 (SNOMED CT) 08/12 Active 08/12 Selma Adán Persistent atrial fibrillation [facility] (current) use of anticoagulant s, Eliquis Z79.01 (ICD-10-CM ) 08/12 Active 08/12 Selma Adán intermission coordinator (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 Septic arthritis, right shoulder (identify bacteria) (B96 codes) M00.811 (ICD-10-CM ) 08/12 Active 08/12 Selma Adán Arthritis due to other bacteria, right shoulder Cellulitis, shoulder, right 918858525 (SNOMED CT) 08/12 Active 08/12 Selma Adán Cellulitis of upper limb COPD 37655405 (SNOMED CT) 08/12 Active 08/12 Selma Adán Chronic obstructive pulmonary disease Benign Essential Hypertension 58368370 (SNOMED CT) 08/12 Active 08/12 Selma Adán Benign hypertension Nicotine dependence, cigarettes 47227707 (SNOMED CT) 08/12 Active 08/12 Selma Adán Cigarette smoker Nicotine dependence 86155302 (SNOMED CT) 08/12 Inactive 08/12 Gypsy Mack Nicotine dependence Medications Medication Instructions Start Date Stop Date Generic Name ND Provider divina gary 2GM IV Q24hrs - [facility] ceftriaxone mario Ryan RN ONDANSETRON HCL 4 MG TABS Take 1 tablet by mouth Every 6 (Six) Hours As Needed for Nausea or Vomiting for up to 7 days ondansetron hcl [id number] Elsie June LEVOTHYROXINE SODIUM 50 MCG TABS Take 1 tablet by mouth Daily levothyroxine 62508075213 Elsie June NALOXONE HCL 4 MG/0.1ML LIQD Call 911. Don't prime. [place] in 1 nostril for overdose. Repeat in 2-3 minutes in other nostril if no or minimal breathing/respo nsiveness naloxone [id number] Elsie June GABAPENTIN 600 MG TABS Take 1 tablet by mouth Daily. gabapentin 12206690759 Elsie June IRBESARTAN 75 MG TABS Take 1 tablet by mouth Daily irbesartan 60522795349 Elsie June OXYCODONE HCL 5 MG TABS Take 1 tablet by mouth Every 4 (Four) Hours As Needed for Moderate Pain oxycodone 40459367703 Elsie June PANTOPRAZOLE SODIUM 40 MG TBEC Take 1 tablet by mouth Daily pantoprazole 39691040794 Elsie June VENTOLIN HFA 108 (90 Base) MCG/ACT AERS Inhale 2 puffs Every 4 (Four) Hours As Needed for Wheezing or Shortness of Air. albuterol sulfate 25560637310 Elsie June SYMBICORT 160-4.5 MCG/ACT AERO Inhale 2 puffs 2 (Two) Times a Day budesonide-formo terol 31976184666 Elsie June FUROSEMIDE 20 MG TABS Take 1 tablet by mouth Daily. furosemide 70844585996 Elsie June ASPIRIN 81 MG TBEC Take 1 tablet by mouth Daily aspirin 02815081449 Elsie June ATORVASTATIN CALCIUM 40 MG TABS Take 1 tablet by mouth Every Night. atorvastatin 08147954477 Elsie June ALBUTEROL SULFATE 1.25 MG/3ML NEBU 3 mL Every 6 (Six) Hours As Needed for Wheezing or Shortness of Air albuterol sulfate 19208993057 Elsie June apixaban 5 mg tablet Take 1 tablet by mouth 2 (Two) Times a Day. HOLD 48 HOURS PRIOR TO SURGERY apixaban Elsie June CITALOPRAM HYDROBROMIDE 10 MG TABS Take 1 tablet by mouth Daily citalopram [id number] Elsie June DULOXETINE HCL 30 MG CPEP Take 1 capsule by mouth Daily. duloxetine 64878311365 Elsie June FAMOTIDINE 40 MG TABS Take 1 tablet by mouth 2 (Two) Times a Day. famotidine 08616170334 Elsie June DICLOFENAC SODIUM ER 100 MG [id number] Take 75 mg by mouth 2 (Two) Times a Day diclofenac sodium 14478072259 Elsie June DILTIAZEM HCL ER BEADS 240 MG [id number] Take 1 capsule by mouth 2 (Two) Times a Day diltiazem hcl 73396324886 Elsie June ceftriaxone recon soln 2GM IV Q24hrs - [facility] ceftriaxone recon soln Mimi Lopez [...] Procedures Code Procedure Name Date Entry Date [id number] CBC with Differential 2022 CPT-24662 CMP CPT-60009 C- reactive protein CPT-31722 Sedimentation Rate (ESR) 202 04/14/17 [id number] CBC with Differential 2022 CPT-86109 CMP CPT-80085 C- reactive protein CPT-70494 Sedimentation Rate (ESR) 202 04/14/12 CPT-sl STAT Labs CPT-21045 CMP CPT-72718 Sedimentation Rate (ESR) 202 04/14/05 CPT-49488 C- reactive protein [id number] CBC with Differential 2022 CPT-sl STAT Labs [...]
--- OUTSIDE RECORDS SUMMARY | 2023-08-11 11:25 | XMS_ITS ---
Author Name Unknown Address [address] [place] [address] Phone Organization [facility] Address [address] [place] [address] Phone Care Team Providers Care Cab Worker Name Role Phone Jose TAFOYA, Mamadou Ryan [...]
--- OUTSIDE RECORDS SUMMARY | 2023-08-11 11:25 | XMS_ITS ---
Author Name Unknown Address [address] [place] [address] Phone Organization [facility] Address [address] [place] [address] Phone Care Team Providers Care Reconnaissance Crewmember Name Role Phone Eduard Redding MD [phone] Conditions or Problems No information available. Medications [...] Procedures Code Procedure Name Date Entry Date [id number] CBC with Differential 2022 CPT-71424 CMP CPT-93413 C- reactive protein CPT-72697 Sedimentation Rate (ESR) 202 04/14/12 Vital Signs [...]
--- NOTE | 2023-08-11 11:30 | CA_ITS ---
APPROVED REPORT EXAM: Comprehensive 2D, Doppler, and color-flow Echocardiogram Licensed Audiologist: Eleanor UngerABRAN Ht: 5 ft 11 in Wt: 159lbs BSA: 1.91 BP: 115/79 mmHg Indications: A-FLUTTER,CARDIOVERISON,COPD,SMOKER,BLAKE,HTN,HLD Procedure After obtaining informed consent, patient underwent transesophageal echo in the [facility]. Type of Sedation : MAC Sedation was administered by Camilla WolfR.N.AJarret Sedation start time: 1:10 PM Case end Time: 1:20 PM Transesophageal probe was inserted and advanced into esophagus without difficulty by Dr. Irvin Ruano. The ALLA was performed without complications. Synchronized Cardioversion acheived with 200 Joules after 1 attempt(s). Rhythm following Synchronized Cardioversion: Normal Sinus Rhythm Throughout the procedure, the blood pressure, pulse oximetry, cardiac rhythm, and rate were monitored. The patient tolerated the procedure without adverse effects. Recovery from conscious sedation was uneventful and vital signs were stable. Left Ventricle The left ventricle is normal size. There is increased LV wall thickness. Proximal septal thickening is noted. Left ventricular systolic function is severely decreased. There is severe global hypokinesis present. LVEF is 25-30%. Right Ventricle The right ventricle is normal size. Right ventricle is moderately hypokinetic. Atria The left atrium is dilated. No thrombus is visualized in the left atrium or appendage. The right atrium size is normal. Interatrial septum is intact without evidence of ASD or PFO. Aortic Valve The aortic valve opens well. The aortic valve is trileaflet. No aortic regurgitation is present. Mitral Valve The mitral valve is normal in structure. No evidence of mitral valve stenosis. Mild mitral regurgitation. Tricuspid Valve The tricuspid valve leaflets are thin and pliable. Trace tricuspid regurgitation. There is insufficient TR jet to estimate RVSP. Pulmonic Valve The pulmonary valve is normal in structure. Trace pulmonic regurgitation. Great Vessels The aortic root is normal in size. The ascending aorta is normal in size. There is mild atherosclerosis in the aortic arch. Pericardium There is no pericardial effusion. Other Information Study Quality: Adequate Conclusion Severely reduced LV systolic function (LVEF 25-30%). Moderate RV dysfunction. Mild MR. No evidence of LA or YONATAN thrombus. Once the ALLA demonstrated no evidence of LA or YONATAN thrombus, the patient underwent successful DCCV with 200 J, after which she converted from atrial flutter to normal sinus rhythm. Subsequently, she was started on amiodarone with plan for gradual taper as she undergoes evaluation for atrial flutter ablation. In the setting of newly reduced biventricular systolic function (likely tachycardia-induced cardiomyopathy), initiation and uptitration of GDMT is recommended as an outpatient. Electronically signed by : Lise Ruano MD 08/15/2023 23:59:34
[2023-08-11] MEDS: LACTATED RINGERS 1000ML 1,000 ML 25 ML IV (11:52)
--- NOTE | 2023-08-11 11:55 | ECG_ITS ---
APPROVED REPORT Exam: Resting ECG HR:143 bpm ECG Measurements Heart Rate 143 AXES WI 179 P 90 QRSd 170 QRS 3 QT 346 T 93 QTc 429 Conclusion SINUS TACHYCARDIA, POSSIBLE ATRIAL FLUTTER LEFT BUNDLE BRANCH BLOCK [120+ ms QRS DURATION, 80+ ms Q/S IN V1/V2, 85+ ms R IN I/aVL/V5/V6] ABNORMAL ECG UNCONFIRMED REPORT Electronically signed by : Favian Willard MD 08/15/2023 18:57:31
[2023-08-11 12:03] VITALS: BP 124/81; PULSE 144; RESP 18; TEMP 36.2; O2SAT 91
[2023-08-11 12:31] LABS: Basophils # 0.1 K/mm3 (0-0.2); Basophils % 0.7 % (0.1-2.0); Eosinophils # 0.4 K/mm3 (0.0-0.4); Eosinophils % 4.5 % (0.1-12.0); Hematocrit 39.8 % (37.0-47.0); Hemoglobin 12.8 g/dL (12.2-16.2); Lymphocytes # 2.6 K/mm3 (0.7-4.5); Lymphocytes % 28.2 % (10-50); Mean Corpuscular HGB Conc 32.1 g/dL (31.8-35.4); Mean Corpuscular Hemoglobin 29.6 pg (27.0-31.2); Mean Corpuscular Volume 92.5 fl (81-99); Mean Platelet Volume 7.7 fl (7.4-10.4); Monocytes # 0.6 K/mm3 (0.1-1.0); Neutrophils # 5.4 K/mm3 (1.8-7.8); Neutrophils % 59.6 % (37.0-80.0); Platelet Count 406 K/mm3 (142-424); Red Cell Distribution Width 16.6 % (11.5-17.5); White Blood Count 9.1 K/mm3 (4.8-10.8)
[2023-08-11 12:36] LABS: Chloride 108 mmol/L (98-107); Sodium 138 mmol/L (136-145)
--- NOTE | 2023-08-11 12:36 | EXP.ANES.CKL ---
[facility] Disclaimer: The information contained in this section may have been updated after the patient was seen, as this information can be updated by other users. Medical History Elevated liver enzymes Smoking greater than 30 pack years Dyspnea on exertion Pulmonary emphysema Dyspnea Afib Sinus bradycardia Coronary artery disease Chronic, continuous use of opioids Right rotator cuff tear Hypothyroidism Atrial fibrillation/flutter Pulmonary hypertension Hepatitis C Tobacco dependence (HFpEF) heart failure with preserved ejection fraction Hyperlipidemia Hypertension COPD (chronic obstructive pulmonary disease) Surgical History History of hysterectomy History of surgery on right wrist History of mandibular surgery History of left heart catheterization History of cholecystectomy S/P rotator cuff repair H/O splenectomy History of cardioversion Family History Mother Stroke Father Coronary artery disease Social History Smoking Status: Current every day smoker tobacco type: cigarettes packs per day: 1 years smoked: 40 second hand exposure: Yes alcohol intake: never substance use type: denies use current occupational status: unemployed and disabled Travel in the last 8 weeks: Inside the [place] household members: none housing: house lives independently: Yes marital status: single number of children: 3 current occupation: Disabled caffeine: Yes [facility] Anesthesia Checklist Patient Identification Patient Identification: Arm Band Structural Data Admitted From: Home Planned Operative Procedure/s: ALLA/Cardioversion Consent for Planned Operative Procedure(s) Verified: Yes Verified Documents: Surgical Consent and History and Physical NPO Status Verified Time NPO: 00:00 Additional verifications Anesthesia Reactions: No Airway Assessment Mallampati Score:: Class II C-Spine Mobility Assessed: Yes TMJ Mobility Assessed: Yes Dentition: Poor Dentition (Pt describe loose front bottom tooth. Risks of dental damage including loss of tooth discussed and pt verbalized understanding) Neurological Assessment Level of Consciousness: Awake, Alert and Appropriate Anesthesia Plan Anesthesia Risk discussed: Yes Anesthesia Plan: Verified ASA Class: III Anesthesia Type: General
[2023-08-11 12:39] LABS: Blood Urea Nitrogen 17 mg/dl (7-17); Creatinine Clearance Estimated 97 mL/min (50-200); Estimated Glomerular Filt Rate 85 ml/min (>60); GFR (African American) 103 ML/MIN (>60)
[2023-08-11 12:40] LABS: Calcium 8.6 mg/dl (8.4-10.2); Carbon Dioxide 28 mmol/L (22.0-30.0); Glucose 102 mg/dl (74-100)
[2023-08-11 12:41] LABS: INR 1.02 (0.9-1.1); Prothrombin Time 11.4 seconds (10.1-12.5)
[2023-08-11 13:01] VITALS: O2SAT 91
[2023-08-11 13:25] VITALS: BP 127/81; PULSE 87; RESP 14; TEMP 36.5; O2SAT 96
[2023-08-11 13:35] VITALS: BP 113/85; PULSE 86; RESP 14; O2SAT 94
--- NOTE | 2023-08-11 13:36 | ECG_ITS ---
APPROVED REPORT Exam: Resting ECG HR:84 bpm ECG Measurements Heart Rate 84 AXES NC 156 P 70 QRSd 118 QRS 62 QT 394 T 80 QTc 435 Conclusion SINUS RHYTHM POSSIBLE LEFT ATRIAL ENLARGEMENT [-0.1mV P-WAVE IN V1/V2] INCOMPLETE RIGHT BUNDLE BRANCH BLOCK [90+ ms QRS DURATION, TERMINAL R IN V1/V2, 40+ ms S IN I/aVL/V4/V5/V6] POSSIBLE LEFT VENTRICULAR HYPERTROPHY [VOLTAGE CRITERIA PLUS LAE OR QRS WIDENING] NONSPECIFIC T-WAVE ABNORMALITY ABNORMAL ECG UNCONFIRMED REPORT Electronically signed by : Favian Willard MD 08/15/2023 18:57:18
[2023-08-11 13:45] VITALS: BP 118/86; PULSE 87; RESP 14; O2SAT 92
[2023-08-11 14:00] VITALS: BP 129/89; PULSE 83; RESP 16; O2SAT 94
== END 2023-08-11 14:00 | disposition home or self-care (01) ==
PROVIDERS: PCP Nurse Practitioner; Visit Provider Internal Medicine
DX: I48.92 Unspecified atrial flutter (principal); Z79.899 Other long term (current) drug therapy; F17.210 Nicotine dependence, cigarettes, uncomplicated; I48.91 Unspecified atrial fibrillation; I27.20 Pulmonary hypertension, unspecified; I11.0 Hypertensive heart disease with heart failure; I50.30 Unspecified diastolic (congestive) heart failure; I25.10 Atherosclerotic heart disease of native coronary artery without angina pectoris; Z79.01 Long term (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
CPT/HCPCS: 80048; 85025; 85610; 92960; 93005; 93270; 93312; 93319; J2250; J7120

== ENCOUNTER 2023-10-22 10:54 | Inpatient (IN) | payer MEDICAID, SELFPAY ==
[2023-10-22] VITALS (29 sets, daily range): BP systolic 89–159; BP diastolic 61–107; PULSE 42–143; RESP 16–28; TEMP 36.5–37.1; O2SAT 85–100; BMI 21.3
--- NOTE | 2023-10-22 10:59 | ECG_ITS ---
APPROVED REPORT Exam: Resting ECG HR:116 bpm ECG Measurements Heart Rate 116 AXES QRSd 122 QRS 81 QT 293 T 17 QTc 362 Conclusion ATRIAL FLUTTER/TACHYCARDIA WITH RAPID VENTRICULAR RESPONSE POSSIBLE RIGHT VENTRICULAR CONDUCTION DELAY [RSR (QR) IN V1/V2] NONSPECIFIC ST & T-WAVE ABNORMALITY ABNORMAL RHYTHM ECG UNCONFIRMED REPORT Electronically signed by : HUMPHREY MOORE, 10/22/2023 17:04:23
--- NOTE | 2023-10-22 11:10 | HMH.EDGENADL ---
Discharge Plan Disposition Patient Disposition: Admitted Condition: Fair Chief Complaint: Shortness of Breath/Dyspnea Prescriptions Prescriptions: No Action nicotine 14 mg/24 hr patch 24 hour 1 patch transdermal DAILY Qty: 28 2RF furosemide 20 mg tablet 60 mg PO DAILY 30 Days Qty: 90 5RF Xarelto 20 mg tablet 20 mg PO DAILY Qty: 90 2RF Rx Instructions: must administer with evening meal gabapentin 600 mg tablet 600 mg PO BID Patient Comments: TAKE 1 TABLET BY MOUTH ONCE DAILY FOR PAIN duloxetine 30 mg capsule,delayed release(DR/EC) 30 mg PO DAILY pantoprazole 40 mg tablet,delayed release (DR/EC) 40 mg PO DAILY Qty: 90 3RF diclofenac sodium 75 mg tablet,delayed release (DR/EC) 150 mg PO DAILY lidocaine [Lidoderm] 5 % adhesive patch,medicated 1 patch topical DAILY aspirin 81 mg tablet,delayed release (DR/EC) 81 mg PO DAILY Qty: 100 3RF atorvastatin 40 mg tablet 40 mg PO HS Qty: 30 3RF diltiazem HCl 240 mg capsule,extended release 24 hr 240 mg PO BID Qty: 60 5RF famotidine 40 mg tablet 40 mg PO BID Qty: 60 5RF metoprolol succinate [Toprol XL] 25 mg tablet extended release 24 hr 25 mg PO DAILY Qty: 30 5RF amiodarone 400 mg tablet 400 mg PO BID Qty: 60 0RF albuterol sulfate 8.5 GM HFA aerosol inhaler 1 puff inhalation Q4HP PRN (Reason: Shortness Of Breath) budesonide-formoterol 10.2 GM HFA aerosol inhaler 2 puffs inhalation BID citalopram 10 mg tablet 10 mg PO DAILY diclofenac sodium 1 % gel 1 ea TOPICAL QIDP PRN (Reason: Mild Pain (Scale Score 1-4)) levothyroxine 50 mcg tablet 50 mcg PO DAILY mirtazapine 15 mg tablet 15 mg PO HS Jardiance 10 mg tablet 10 mg PO DAILY ipratropium-albuterol 0.5 mg-3 mg(2.5 mg base)/3 mL solution for nebulization 3 ml inhalation QID PRN (Reason: wheezing) Qty: 180 1RF ketorolac 10 mg tablet 10 mg PO Q6H PRN (Reason: pain) 4 Days Qty: 16 0RF Rx Instructions: tolerated IV formulation during admission Referrals Follow up/Referrals: Provider,Referral, MD [Primary Care Provider] - See instructions Clinical Impressions Clinical Impression: Dyspnea, COPD exacerbation, PNA (pneumonia), CHF exacerbation Print Language Print Language: Belarusian Discharge ED Provider: Darci Daniels Adult HPI General Chief complaint: Shortness of Breath/Dyspnea Stated complaint: SOA Time Seen by Provider: 10/22/23 11:10 History of Present Illness HPI narrative: 62-year-old female with past medical history significant for atrial flutter/tachycardia, COPD on 2 L as needed, A-fib, CHF, HTN, HLD, presents today for evaluation concerning shortness of breath which she states has been progressing over the past several days. She also complains of productive cough with yellow phlegm. Has also had central chest pain. She denies having any fevers or chills. She does report that her legs are swollen at this time. Denies any nausea, vomiting, abdominal pain, dysuria, hematuria or any other associated symptoms. Related Data Home Medications ?Medication ?Instructions ?Recorded ?Confirmed duloxetine 30 mg capsule,delayed 30 mg PO DAILY 11/04/20 08/10/23 release gabapentin 600 mg tablet 600 mg PO BID 11/04/20 08/10/23 albuterol sulfate 90 mcg/actuation 1 puff inhalation Q4HP PRN 01/10/21 08/10/23 aerosol inhaler Shortness Of Breath budesonide-formoterol HFA 160 2 puffs inhalation BID 01/10/21 08/10/23 mcg-4.5 mcg/actuation aerosol inhaler citalopram 10 mg tablet 10 mg PO DAILY 03/01/22 08/10/23 diclofenac sodium 1 % topical gel 1 ea topical QIDP PRN Mild Pain 03/01/22 08/10/23 (Scale Score 1-4) levothyroxine 50 mcg tablet 50 mcg PO DAILY 03/01/22 08/10/23 mirtazapine 15 mg tablet 15 mg PO HS 03/01/22 08/10/23 diclofenac sodium 75 mg 150 mg PO DAILY 04/13/23 08/10/23 tablet,delayed release lidocaine 5 % topical patch 1 patch topical DAILY 04/13/23 08/10/23 (Lidoderm) empagliflozin 10 mg tablet 10 mg PO DAILY 07/19/23 08/10/23 (Jardiance) Previous Rx's ?Medication ?Instructions ?Recorded pantoprazole 40 mg tablet,delayed 40 mg PO DAILY GERD #90 tabs 03/04/21 release aspirin 81 mg tablet,delayed 81 mg PO DAILY #100 tabs 01/28/23 release atorvastatin 40 mg tablet 40 mg PO HS Cholesterol #30 tabs 01/28/23 diltiazem HCl 240 mg capsule,24 240 mg PO BID #60 caps 01/28/23 hr,extended release famotidine 40 mg tablet 40 mg PO BID acid reflux #60 tabs 01/28/23 metoprolol succinate 25 mg 25 mg PO DAILY #30 tabs 06/07/23 tablet,extended release 24 hr (Toprol XL) ipratropium 0.5 mg-albuterol 3 mg 3 ml inhalation QID PRN wheezing 07/19/23 (2.5 mg base)/3 mL nebulization #180 mL soln ketorolac 10 mg tablet 10 mg PO Q6H PRN pain 4 days #16 07/19/23 tabs furosemide 20 mg tablet 60 mg (3 x 20 mg) PO DAILY 30 days 07/27/23 #90 tabs nicotine 14 mg/24 hr daily 1 patch transdermal DAILY #28 ea 07/27/23 transdermal patch rivaroxaban 20 mg tablet (Xarelto) 20 mg PO DAILY #90 tabs 08/10/23 amiodarone 400 mg tablet 400 mg PO BID #60 tabs 08/11/23 Allergies Allergy/AdvReac Type Severity Reaction Status Date / Time codeine Allergy Mild Nausea Verified 08/11/23 07:57 penicillin G [PENICILLIN G] Allergy Mild I-RASH/NV Verified 08/11/23 07:57 acetaminophen [ACETAMINOPHEN] AdvReac Mild NOT Verified 08/11/23 07:57 ALLERGIC. NEED TO WATCH DUE TO LIVER [facility] Disclaimer: The information contained in this section may have been updated after the patient was seen, as this information can be updated by other users. Medical History Elevated liver enzymes Smoking greater than 30 pack years Dyspnea on exertion Pulmonary emphysema Dyspnea Afib Sinus bradycardia Coronary artery disease Chronic, continuous use of opioids Right rotator cuff tear Hypothyroidism Atrial fibrillation/flutter Pulmonary hypertension Hepatitis C Tobacco dependence (HFpEF) heart failure with preserved ejection fraction Hyperlipidemia Hypertension COPD (chronic obstructive pulmonary disease) Surgical History History of hysterectomy History of surgery on right wrist History of mandibular surgery History of left heart catheterization History of cholecystectomy S/P rotator cuff repair H/O splenectomy History of cardioversion Family History Mother Stroke Father Coronary artery disease Social History Smoking Status: Current some day smoker tobacco type: cigarettes packs per day: 1 years smoked: 40 second hand exposure: Yes alcohol intake: never substance use type: denies use current occupational status: unemployed and disabled Travel in the last 8 weeks: [place] the [place] household members: none housing: house lives independently: Yes marital status: single number of children: 3 current occupation: Disabled caffeine: Yes ROS Obtained: Yes All systems reviewed & no additional complaints except as documented Physical Exam General General appearance: alert and in no apparent distress Head Head exam: atraumatic and normocephalic Eye Eye exam: Present normal appearance, PERRL and EOMI ENT ENT exam: Present normal oropharynx and mucous membranes moist Neck Neck exam: Present full ROM; Absent meningismus Respiratory Respiratory exam: Present respiratory distress, wheezes, accessory muscle use and other (Decreased breath sounds throughout with expiratory wheezes. No rales or rhonchi auscultated. Trachea sternal and intercostal retractions.); Absent stridor Cardiovascular Cardiovascular exam: Present normal rhythm Abdominal Exam Abdominal exam: Present soft; Absent distention, tenderness, guarding, rebound or rigidity Extremities Exam Extremities exam: Present full ROM and edema (2+ pitting edema in bilateral lower extremities); Absent tenderness Neurological Exam Neurological exam: Present alert, oriented X3 and CN II-XII intact; Absent motor sensory deficit Psychiatric Psychiatric exam: Present normal affect and normal mood Skin Skin exam: Present warm and dry Medical Decision Making Medical Records Medical records reviewed: Yes I reviewed the patient's medical records. Alberto Inquiry Pt receiving controlled substance: No Alberto was queried for this patient: No Vital Signs: 10/22/23 10:54 10/22/23 11:15 10/22/23 11:33 Temperature 97.7 F Temperature Source Axillary Pulse Rate 92 H 117 H Pulse Rate [Left Radial] 143 H Respiratory Rate 25 H 24 21 Blood Pressure 146/105 H 146/105 H Blood Pressure [Right Arm] 148/99 H Blood Pressure Mean Blood Pressure Mean [Right Arm] 115 02 Sat by Pulse Oximetry 92 L 100 99 Oxygen Delivery Method Nasal Cannula BiPAP BiPAP Oxygen Flow Rate (LPM) 4 10/22/23 12:00 10/22/23 12:15 10/22/23 12:16 Temperature Temperature Source Pulse Rate 69 116 H Pulse Rate [Left Radial] Respiratory Rate 19 28 H 23 Blood Pressure 145/104 H 138/107 H 138/107 H Blood Pressure [Right Arm] Blood Pressure Mean Blood Pressure Mean [Right Arm] 02 Sat by Pulse Oximetry 100 99 100 Oxygen Delivery Method BiPAP BiPAP Nasal Cannula Oxygen Flow Rate (LPM) 4 10/22/23 12:31 10/22/23 13:00 10/22/23 13:30 Temperature Temperature Source Pulse Rate 43 L 122 H 140 H Pulse Rate [Left Radial] Respiratory Rate 20 22 25 H Blood Pressure 108/62 L 124/101 H 123/86 Blood Pressure [Right Arm] Blood Pressure Mean Blood Pressure Mean [Right Arm] 02 Sat by Pulse Oximetry 100 99 85 L Oxygen Delivery Method Nasal Cannula Nasal Cannula Nasal Cannula Oxygen Flow Rate (LPM) 4 4 4 10/22/23 14:00 Temperature Temperature Source Pulse Rate 64 Pulse Rate [Left Radial] Respiratory Rate 18 Blood Pressure 126/81 Blood Pressure [Right Arm] Blood Pressure Mean 101 Blood Pressure Mean [Right Arm] 02 Sat by Pulse Oximetry 96 Oxygen Delivery Method Oxygen Flow Rate (LPM) Lab Data Lab Results 10/22/23 11:17: VBG pH 7.42 H, VBG pCO2 38.6, VBG pO2 128.0 H, VBG HCO3 24.5, VBG Total CO2 25.7, VBG O2 Saturation 98.9 H, VBG Base Excess 0.1, VBG Lactic Acid 1.2 10/22/23 11:30: WBC 12.9 H, RBC 4.48, Hgb 12.5, Hct 43.0, MCV 95.9, MCH 27.9, MCHC 29.1 L, RDW 17.2, Plt Count 383, MPV 8.2, Neut % (Auto) 85.1 H, Lymph % (Auto) 8.6 L, [place] % (Auto) 4.7, Eos % (Auto) 0.9, Baso % (Auto) 0.6, Neut # (Auto) 11.0 H, Lymph # (Auto) 1.1, [place] # (Auto) 0.6, Eos # (Auto) 0.1, Baso # (Auto) 0.1, Total Counted 100, Neutrophils % (Manual) 85 H, Lymphocytes % (Manual) 10, Monocytes % (Manual) 5, Platelet Estimate Normal, RBC Morphology Normal, Sodium 140, Potassium 4.2, Chloride 110 H, Carbon Dioxide 29, Anion Gap 5.2, BUN 12, Creatinine 0.50 L, Estimated Creat Clear 131, Estimated GFR 126, Est GFR ( Amer) 152, Glucose 109 H, Calcium 8.6, Total Bilirubin 0.7, AST 35, ALT 39, Alkaline Phosphatase 114, Troponin I < 0.01, NT-Pro-B Natriuret Pep 3140 H, Total Protein 7.1, Albumin 3.9, Globulin 3.2, Albumin/Globulin Ratio 1.2 10/22/23 14:16: VBG pH 7.33, VBG pCO2 56.3 H, VBG pO2 53.4 H, VBG HCO3 29.2, VBG Total CO2 30.9 H, VBG O2 Saturation 86.2 H, VBG Base Excess 3.3 H, VBG Lactic Acid 1.7 10/22/23 11:30 10/22/23 11:30 Orders (Tests/Meds): ED MEDICATIONS Generic Name Dose Route Start Last Admin Trade Name Freq PRN Reason Stop Dose Admin Ceftriaxone Sodium 1 gm/ 50 mls @ 100 mls/hr 10/22/23 12:15 10/22/23 12:29 Sodium Chloride IV 11/01/23 12:14 100 mls/hr Q24H AINSLEY Administration Azithromycin 500 mg/ Sodium 250 mls @ 250 mls/hr 10/22/23 12:15 10/22/23 13:12 Chloride IV 11/01/23 12:14 250 mls/hr Q24H AINSLEY Administration Metoprolol Tartrate 5 mg 10/22/23 13:21 10/22/23 13:38 Metoprolol Tartrate 5mg/5ml Vial IV 11/21/23 13:20 5 mg Q5MINP PRN Administration Heart Rate >100 Sodium Chloride 10 ml 10/22/23 14:10 Sodium Chloride 0.9% 10ml Syr (Rad Only) IV 11/21/23 14:09 NEEDED PRN Maintain IV Site Discontinued Medications Generic Name Dose Route Start Last Admin Trade Name Jackson PRN Reason Stop Dose Admin Albuterol/Ipratropium 9 ml 10/22/23 11:17 10/22/23 11:29 Ipratropium/Albuterol 3 Ml Neb IH 10/22/23 11:18 9 ml Q1H ONE Administration Furosemide 40 mg 10/22/23 12:03 10/22/23 12:29 Furosemide 40mg/4ml Vial IV 10/22/23 12:04 40 mg ONCE ONE Administration Iopamidol 85 ml 10/22/23 14:10 10/22/23 14:11 Iopamidol-370 (76%);100ml Bottle IV 10/22/23 14:11 85 ml ONCE ONE Administration Morphine Sulfate 4 mg 10/22/23 12:58 10/22/23 13:07 Morphine 4mg/Ml Syringe IV 10/22/23 12:59 4 mg ONCE ONE Administration Ondansetron HCl 4 mg 10/22/23 12:58 10/22/23 13:08 Ondansetron 4mg/2ml Vial IV 10/22/23 12:59 4 mg ONCE ONE Administration Sodium Chloride 50 ml 10/22/23 14:10 10/22/23 14:11 0.9 % Sodium Chloride 50 Ml Vial IV 10/22/23 14:11 50 ml ONCE ONE Administration ORDERS Category Date Time Status CTA Chest [CT angio chest PE protocol] Stat Cat Scan 10/22/23 13:19 Taken CXR --portable [XR chest portable] Stat Exams 10/22/23 11:17 Completed BNP [NT Pro Brain Natriuretic Pep.] Stat Lab 10/22/23 11:30 Completed CBC w/Auto Diff [Complete Blood Count Auto Diff] Stat Lab 10/22/23 11:30 Completed CMP [Comprehensive Metabolic Panel] Stat Lab 10/22/23 11:30 Completed Trop I [Troponin I] Stat Lab 10/22/23 11:30 Completed Troponin I Q3H Lab 10/22/23 14:22 Received Troponin I Q3H Lab 10/22/23 17:30 Ordered Blood Culture Stat Micro 10/22/23 12:27 Received VBG [Venous Blood Gas] Stat RT 10/22/23 11:17 Completed VBG [Venous Blood Gas] Stat RT 10/22/23 14:16 Completed HEART Score History (anamnesis): Slightly suspicious ECG: Normal Age: 45-65 years Risk factors: 3 or more risk factors Troponin: </= normal limit HEART Score: 3 Medical Decision Narrative: 62-year-old female with past medical history significant for atrial flutter/tachycardia, COPD on 2 L as needed, A-fib, CHF, HTN, HLD, presents today for evaluation concerning shortness of breath which she states has been progressing over the past several days. She also complains of productive cough with yellow phlegm. Has also had central chest pain. She denies having any fevers or chills. She does report that her legs are swollen at this time. On assessment she was alert and oriented however was in respiratory distress. Tachycardic with heart rate in the 140s. Decreased breath sounds and expiratory wheezes on chest auscultation. Abdomen soft nondistended and nontender to palpation. 2+ pitting edema in bilateral lower extremities. Other physical exam findings unremarkable differential diagnoses include not limited to STEMI, NSTEMI, CHF exacerbation, COPD exacerbation, pleural effusion, pneumonia, viral syndrome, A-fib/flutter, among others. EKG personally checked by me and was remarkable for atrial flutter with a rate of 116 bpm. No ischemic changes. There appears to be haziness in the bilateral lower lobes on my informal interpretation of chest x-ray. Please see radiology report for final results. CT PE does not show any large pulmonary embolism on my informal interpretation. Please see radiology for for final results. Patient was initially placed on BiPAP when she arrived for work of breathing which improved during her stay. Initial VBG showed a pH of 7.42, pCO2 of 38.6. Lactate of 1.2. Repeat VBG after BiPAP showed a pH of 7.33, pCO2 of 56.3. Lactate of 1.7. She has a mild elevation in her WBC at 12.9. Initial troponin less than 0.01. BNP elevated at 3140. Of note, patient did receive a 5 mg IV dose of metoprolol for her a flutter and she has since been rate controlled with heart rate in the 100s. Given her history of CHF and given physical exam findings consistent with fluid overload did not order IV fluids at this time. She remains stable and in no acute distress on reassessment. States that her work of breathing has significantly improved. I discussed ED workup and results and current plan to admit for CHF/COPD exacerbation and possible pneumonia. She verbalized understanding and agreement. I did consult with hospital medicine and discussed management and have agreed to evaluate and admit. Critical Care Critical Care Time Critical Care Time: Yes Attestation: On 10/22/23, the high probability of a clinically significant, sudden or life threatening deterioration of the following system(s) required my full and direct attention, intervention and personal management. The time I documented below is in addition to time spent performing reported procedures but includes the following listed in this critical care notation. Total Time Total Critical Care Time: 35
--- NOTE | 2023-10-22 11:17 | XR_ITS ---
FINAL REPORT CLINICAL HISTORY: SOB COMPARISON: 07/13/2023 FINDINGS: SINGLE-VIEW CHEST There is cardiomegaly. The mediastinum is normal. The lungs are clear. There is no pneumothorax. There are postoperative changes in the right shoulder. There is a chronic distal left clavicle fracture. IMPRESSION: No acute cardiopulmonary process. Reviewed, Interpreted and Dictated by Vic Munoz III, MD Transcribed by Jagruti Maher Authenticated and [facility]
--- NOTE | 2023-10-22 11:28 | PC.NURSE ---
XR AT BEDSIDE
[2023-10-22] MEDS: IPRATROPIUM/ALBUTEROL 3 ML NEB 9 ML IH (11:29)
[2023-10-22 11:35] LABS: Lactate Venous 1.2 mmol/L (0.4-2.0); VBG Base Excess 0.1 mmol/L (-2.4-2.3); VBG HCO3 24.5 mmol/L (23-30); VBG Oxygen Saturation 98.9 % (50-70); VBG PCO2 38.6 mmol/L (35-51); VBG PH 7.42 mmol/L (7.31-7.41); VBG Total CO2 25.7 mmol/L (23-27)
[2023-10-22 11:38] LABS: Basophils # 0.1 K/mm3 (0-0.2); Basophils % 0.6 % (0.1-2.0); Eosinophils # 0.1 K/mm3 (0.0-0.4); Eosinophils % 0.9 % (0.1-12.0); Hemoglobin 12.5 g/dL (12.2-16.2); Lymphocytes # 1.1 K/mm3 (0.7-4.5); Lymphocytes % 8.6 % (10-50); Mean Corpuscular HGB Conc 29.1 g/dL (31.8-35.4); Mean Corpuscular Hemoglobin 27.9 pg (27.0-31.2); Mean Corpuscular Volume 95.9 fl (81-99); Mean Platelet Volume 8.2 fl (7.4-10.4); Monocytes # 0.6 K/mm3 (0.1-1.0); Monocytes % 4.7 % (1.7-9.3); Neutrophils % 85.1 % (37.0-80.0); Platelet Count 383 K/mm3 (142-424); Red Blood Count 4.48 M/mm3 (4.20-5.40); Red Cell Distribution Width 17.2 % (11.5-17.5); White Blood Count 12.9 K/mm3 (4.8-10.8)
[2023-10-22 11:40] LABS: MANUAL DIFFERENTIAL MANUAL DIFFERENTIAL (MANUAL DIFF)
[2023-10-22 11:45] LABS: Albumin Level 3.9 g/dl (3.5-5.0); Chloride 110 mmol/L (98-107); Potassium 4.2 mmoL/L (3.5-5.1); Sodium 140 mmol/L (136-145)
[2023-10-22 11:48] LABS: Alanine Aminotransferase 39 U/L (12-78); Albumin/Globulin Ratio 1.2 (1.1-1.8); Alkaline Phosphatase 114 U/L (38-126); Anion Gap 5.2 mEq/L (5-15); Aspartate Amino Transferase 35 U/L (14-36); Bilirubin,Total 0.7 mg/dl (0.2-1.3); Blood Urea Nitrogen 12 mg/dl (7-17); Calcium 8.6 mg/dl (8.4-10.2); Carbon Dioxide 29 mmol/L (22.0-30.0); Creatinine Clearance Estimated 131 mL/min (50-200); Estimated Glomerular Filt Rate 126 ml/min (>60); GFR (African American) 152 ML/MIN (>60); Globulin 3.2 g/dL (1.3-3.2); Glucose 109 mg/dl (74-100); Total Protein,Serum 7.1 g/dl (6.3-8.2)
[2023-10-22 11:58] LABS: Lymphocytes % 10 % (10-50); Monocytes % 5 % (2-9); NT Pro Brain Natriuretic Pep. 3140 pg/mL (0-125); Neutrophils % 85 % (42-76); Total Cells Counted 100
[2023-10-22 11:59] LABS: Platelet Estimate Normal; RBC Morphology Normal
[2023-10-22 12:02] LABS: Troponin I < 0.01 ng/ml (0.00-0.034)
[2023-10-22] MEDS: CEFTRIAXONE 1 GM 1 GM in 0.9 % SODIUM CHLORIDE 50 ML IV (12:29)
[2023-10-22] MEDS: FUROSEMIDE 40MG/4ML VIAL 40 MG IV (12:29)
--- NOTE | 2023-10-22 12:31 | PC.NURSE ---
ADDITIONAL IV PLACE #20 TO RIGHT WRIST, X 1 ATTEMPT
[2023-10-22] MEDS: MORPHINE 4MG/ML SYRINGE 4 MG IV (13:07)
[2023-10-22] MEDS: ONDANSETRON 4MG/2ML VIAL 4 MG IV (13:08)
[2023-10-22] MEDS: AZITHROMYCIN 500 MG in 0.9 % SODIUM CHLORIDE 250 ML 250 MG IV (13:12)
--- NOTE | 2023-10-22 13:17 | ECG_ITS ---
APPROVED REPORT Exam: Resting ECG HR:141 bpm ECG Measurements Heart Rate 141 AXES QRSd 111 QRS 78 QT 328 T 27 QTc 410 Conclusion ATRIAL FLUTTER/TACHYCARDIA WITH RAPID VENTRICULAR RESPONSE INCOMPLETE RIGHT BUNDLE BRANCH BLOCK [90+ ms QRS DURATION, TERMINAL R IN V1/V2, 40+ ms S IN I/aVL/V4/V5/V6] VOLTAGE CRITERIA FOR LVH [MEETS CRITERIA IN ONE OF: R(aVL), S(V1), R(V5), R(V5/V6)+S(V1)] MODERATE T-WAVE ABNORMALITY, CONSIDER INFERIOR ISCHEMIA [-0.1+ mV T-WAVE IN II/aVF] ABNORMAL ECG Electronically signed by : WESTON WAGNER, 10/25/2023 18:00:43
--- NOTE | 2023-10-22 13:19 | CT_ITS ---
FINAL REPORT CLINICAL HISTORY: SOB COMPARISON: 07/18/2023 FINDINGS: Thin section axial CT images of the chest were obtained with contrast. 3D reformatted images were also obtained. This study was performed with techniques to keep radiation doses as low as reasonably achievable (ALARA). Individualized dose reduction techniques using automated exposure control or adjustment of mA and/or kV according to the patient's size were employed. There is no evidence of pulmonary embolism. There is no evidence of thoracic aortic aneurysm or dissection. There is cardiomegaly. There is no evidence of mediastinal or hilar mass or adenopathy. There is no evidence of pulmonary mass or nodule. No localized inflammatory process is seen within the lungs. There is moderate emphysema and mild pulmonary scarring. Limited images of the upper abdomen reveal cholecystectomy. IMPRESSION: No evidence of pulmonary embolism. No mass or localized inflammatory process. Reviewed, Interpreted and Dictated by Vic Munoz III, MD Transcribed by Jagruti Maher Authenticated and [facility]
--- NOTE | 2023-10-22 13:30 | HMH.ITSTN ---
Patient states she needs to use bed ram before we go to CT. I spoke with cullen Blair. Shes going to help patient and let me know when patient is ready.
[2023-10-22] MEDS: METOPROLOL TARTRATE 5MG/5ML VIAL 5 MG IV ×4 (13:38→21:11)
--- NOTE | 2023-10-22 14:05 | PC.NURSE ---
PT TO CT
[2023-10-22] MEDS: 0.9 % SODIUM CHLORIDE 50 ML VIAL IV (14:11)
[2023-10-22] MEDS: IOPAMIDOL-370 (76%);100ML BOTTLE 85 ML IV (14:11)
[2023-10-22 14:38] LABS: Lactate Venous 1.7 mmol/L (0.4-2.0); VBG Base Excess 3.3 mmol/L (-2.4-2.3); VBG HCO3 29.2 mmol/L (23-30); VBG Oxygen Saturation 86.2 % (50-70); VBG PH 7.33 mmol/L (7.31-7.41); VBG PO2 53.4 mmol/L (28-40); VBG Total CO2 30.9 mmol/L (23-27)
[2023-10-22 14:41] LABS: VBG PCO2 56.3 mmol/L (35-51)
[2023-10-22 15:03] LABS: Troponin I < 0.01 ng/ml (0.00-0.034)
--- NOTE | 2023-10-22 15:10 | PC.NURSE ---
SLACKLINE OPERATOR NOTIFIED OF ADMISSION
--- NOTE | 2023-10-22 15:37 | PC.NURSE ---
report called to karen on second floor
--- NOTE | 2023-10-22 17:09 | P.HP_ITS ---
History of Present Illness *Admission Date: 10/22/23 *Reason for visit:: COPD exacerbation, CHF exacerbation, a flutter *History of present illness: Delia Buchanan is a 62-year-old female with a medical history significant for COPD (2 L with exertion as needed), current tobacco smoker (4 cigarettes/day), HFrEF (LVEF 25 to 30% on 08/11/2023), A-flutter (on Xarelto, s/p unsuccessful cardioversion August 2023), CAD, hypertension, hyperlipidemia, hypothyroidism presents with 1 week of yellow productive cough, shortness of breath, leg swelling which significantly worsened yesterday. Patient states she began to experience significant dyspnea with palpitations on exertion starting around 4 PM yesterday. She also notes central chest pain with cough and tightness over the last few days without radiation to left shoulder, nausea/vomiting, diaphoresis. She denies fevers, sick contacts, abdominal pain, diarrhea/constipation, urinary symptoms. She states she has been adherent with all her medications. Patient recently had a cardioversion for a flutter in August 2023, however patient states she went back into a flutter within a day. Cardiology is planning for an ablation outpatient. In the ED, HR up to 140 and initial BP 146/105 which is improved to 102/65. She was initially placed on BiPAP but weaned to 2 L nasal cannula with appropriate saturations. Labs significant for WBC 12.9, VBG pCO2 56.3, pH 7.33, proBNP 3140, normal troponin X2. EKG shows a flutter without acute ST changes. CXR unremarkable for acute changes. Pending chest CTA to rule out pulmonary embolus at this time. Patient was given DuoNeb, IV Lasix 40 mg, IV morphine 4 mg, Zofran. Patient will be admitted for further evaluation management to the hospital medicine service for acute hypoxic, hypercapnic respiratory failure secondary to COPD and HFrEF exacerbation, and a flutter. [facility] Disclaimer: The information contained in this section may have been updated after the patient was seen, as this information can be updated by other users. Medical History Elevated liver enzymes Smoking greater than 30 pack years Dyspnea on exertion Pulmonary emphysema Dyspnea Afib Sinus bradycardia Coronary artery disease Chronic, continuous use of opioids Right rotator cuff tear Hypothyroidism Atrial fibrillation/flutter Pulmonary hypertension Hepatitis C Tobacco dependence (HFpEF) heart failure with preserved ejection fraction Hyperlipidemia Hypertension COPD (chronic obstructive pulmonary disease) Surgical History History of hysterectomy History of surgery on right wrist History of mandibular surgery History of left heart catheterization History of cholecystectomy S/P rotator cuff repair H/O splenectomy History of cardioversion Family History Mother Stroke Father Coronary artery disease Social History Smoking Status: Current some day smoker tobacco type: cigarettes packs per day: 1 years smoked: 40 second hand exposure: Yes alcohol intake: never substance use type: denies use current occupational status: unemployed and disabled Travel in the last 8 weeks: Inside the [place] household members: none housing: house lives independently: Yes marital status: single number of children: 3 current occupation: Disabled caffeine: Yes Review of Systems Review of Systems Review of systems (narrative): See HPI for ROS. Meds Home Medications and Allergies Home Medications ?Medication ?Instructions ?Recorded ?Confirmed ?Type gabapentin 600 mg tablet 600 mg PO BID 11/04/20 10/22/23 History albuterol sulfate 90 mcg/actuation 1 puff inhalation Q4HP PRN 01/10/21 10/22/23 History aerosol inhaler Shortness Of Breath budesonide-formoterol HFA 160 2 puffs inhalation BID 01/10/21 10/22/23 History mcg-4.5 mcg/actuation aerosol inhaler pantoprazole 40 mg tablet,delayed 40 mg PO DAILY GERD #90 tabs 03/04/21 10/22/23 Rx release citalopram 10 mg tablet 10 mg PO DAILY 03/01/22 10/22/23 History diclofenac sodium 1 % topical gel 1 ea topical QIDP PRN Mild Pain 03/01/22 10/22/23 History (Scale Score 1-4) levothyroxine 50 mcg tablet 50 mcg PO DAILY 03/01/22 10/22/23 History mirtazapine 15 mg tablet 15 mg PO HS 03/01/22 10/22/23 History aspirin 81 mg tablet,delayed 81 mg PO DAILY #100 tabs 01/28/23 10/22/23 Rx release atorvastatin 40 mg tablet 40 mg PO HS Cholesterol #30 tabs 01/28/23 10/22/23 Rx diltiazem HCl 240 mg capsule,24 240 mg PO BID #60 caps 01/28/23 10/22/23 Rx hr,extended release famotidine 40 mg tablet 40 mg PO BID acid reflux #60 tabs 01/28/23 10/22/23 Rx diclofenac sodium 75 mg 150 mg PO DAILY 04/13/23 10/22/23 History tablet,delayed release lidocaine 5 % topical patch 1 patch topical DAILY 04/13/23 10/22/23 History (Lidoderm) metoprolol succinate 25 mg 25 mg PO DAILY #30 tabs 06/07/23 10/22/23 Rx tablet,extended release 24 hr (Toprol XL) empagliflozin 10 mg tablet 10 mg PO DAILY 07/19/23 10/22/23 History (Jardiance) ipratropium 0.5 mg-albuterol 3 mg 3 ml inhalation QID PRN wheezing 07/19/23 10/22/23 Rx (2.5 mg base)/3 mL nebulization #180 mL soln furosemide 20 mg tablet 60 mg (3 x 20 mg) PO DAILY 30 days 07/27/23 10/22/23 Rx #90 tabs nicotine 14 mg/24 hr daily 1 patch transdermal DAILY #28 ea 07/27/23 10/22/23 Rx transdermal patch rivaroxaban 20 mg tablet (Xarelto) 20 mg PO DAILY #90 tabs 08/10/23 10/22/23 Rx New Prescriptions to Start Prescriptions: Allergies Allergy/AdvReac Type Severity Reaction Status Date / Time codeine Allergy Mild Nausea Verified 08/11/23 07:57 penicillin G [PENICILLIN G] Allergy Mild I-RASH/NV Verified 08/11/23 07:57 acetaminophen [ACETAMINOPHEN] AdvReac Mild NOT Verified 08/11/23 07:57 ALLERGIC. NEED TO WATCH DUE TO LIVER Exam Data for Last 24 hours Vital signs and Labs for Last 24 Hours: Temp Pulse Resp BP Pulse Ox O2 Del Method O2 Flow Rate 97.9 F 128 H 18 102/65 L 95 Nasal Cannula 2 10/22/23 16:10/22/23 16:10/22/23 16:10/22/23 16:10/22/23 16:01 10/22/23 16:09 10/22/23 16:09 FiO2 40 10/22/23 11:21 Laboratory Results - last 24 hr 10/22/23 11:17: VBG pH 7.42 H, VBG pCO2 38.6, VBG pO2 128.0 H, VBG HCO3 24.5, VBG Total CO2 25.7, VBG O2 Saturation 98.9 H, VBG Base Excess 0.1, VBG Lactic Acid 1.2 10/22/23 11:30: WBC 12.9 H, RBC 4.48, Hgb 12.5, Hct 43.0, MCV 95.9, MCH 27.9, MCHC 29.1 L, RDW 17.2, Plt Count 383, MPV 8.2, Neut % (Auto) 85.1 H, Lymph % (Auto) 8.6 L, [place] % (Auto) 4.7, Eos % (Auto) 0.9, Baso % (Auto) 0.6, Neut # (Auto) 11.0 H, Lymph # (Auto) 1.1, [place] # (Auto) 0.6, Eos # (Auto) 0.1, Baso # (Auto) 0.1, Total Counted 100, Neutrophils % (Manual) 85 H, Lymphocytes % (Manual) 10, Monocytes % (Manual) 5, Platelet Estimate Normal, RBC Morphology Normal, Sodium 140, Potassium 4.2, Chloride 110 H, Carbon Dioxide 29, Anion Gap 5.2, BUN 12, Creatinine 0.50 L, Estimated Creat Clear 131, Estimated GFR 126, Est GFR ( Amer) 152, Glucose 109 H, Calcium 8.6, Total Bilirubin 0.7, AST 35, ALT 39, Alkaline Phosphatase 114, Troponin I < 0.01, NT-Pro-B Natriuret Pep 3140 H, Total Protein 7.1, Albumin 3.9, Globulin 3.2, Albumin/Globulin Ratio 1.2 10/22/23 14:16: VBG pH 7.33, VBG pCO2 56.3 H, VBG pO2 53.4 H, VBG HCO3 29.2, VBG Total CO2 30.9 H, VBG O2 Saturation 86.2 H, VBG Base Excess 3.3 H, VBG Lactic Acid 1.7 10/22/23 14:22: Troponin I < 0.01 I & O for Last 24 hours: Intake & Output 10/19/23 10/20/23 10/21/23 10/22/23 23:59 23:59 23:59 23:59 Weight 69.4 kg Constitutional Constitutional: no acute distress *Routine HEENT Exam Head: Present normocephalic Eye: Present EOMI ENT: Present nares patent *Routine Neck Exam Neck: Present full ROM *Routine Respiratory Exam Respiratory: Present decreased breath sounds, rhonchi, wheezes, distant breath sounds and diminished air movement *Routine Cardiovascular Exam Cardiovascular: Present tachycardia, irregular rhythm and irregularly irregular *Routine Abdominal Exam Abdominal: Present soft and normoactive bowel sounds; Absent tenderness *Routine Rectal Exam Rectal:: deferred *Routine Genitalia Exam Genitalia:: deferred *Routine Extremities Exam Extremities: Absent cyanosis, clubbing or edema Comments: 1+ pitting edema lower extremities up to knees. *Routine Skin Exam Skin: Present warm; Absent rash *Routine Neurological Exam Neurological: Present alert and oriented X3 Assessment and Plan *Assessment and plan (1) CHF exacerbation: Status: Acute Qualifiers: Heart failure type: systolic Qualified Code(s): I50.23 - Acute on chronic systolic (congestive) heart failure Category: Medical Code(s): I50.9 - Heart failure, unspecified (2) PNA (pneumonia): Status: Acute Qualifiers: Pneumonia type: due to unspecified organism Laterality: unspecified laterality Lung location: unspecified part of lung Qualified Code(s): J18.9 - Pneumonia, unspecified organism Category: Medical Code(s): J18.9 - Pneumonia, unspecified organism (3) COPD exacerbation: Status: Acute Category: Medical Code(s): J44.1 - Chronic obstructive pulmonary disease with (acute) exacerbation (4) Smoking greater than 30 pack years: Status: Acute Category: Social Hx Code(s): F17.210 - Nicotine dependence, cigarettes, uncomplicated (5) Dyspnea on exertion: Status: Acute Category: Medical Code(s): R06.09 - Other forms of dyspnea (6) Atrial flutter with rapid ventricular response: Status: Acute Category: Medical Code(s): I48.92 - Unspecified atrial flutter (7) Hypothyroidism: Status: Chronic Qualifiers: Hypothyroidism type: unspecified Qualified Code(s): E03.9 - Hypothyroidism, unspecified Category: Medical Code(s): E03.9 - Hypothyroidism, unspecified (8) Coronary artery disease: Status: Chronic Qualifiers: Coronary Disease-Associated Artery/Lesion type: [place] artery [place] vs. transplanted heart: [place] heart Associated angina: without angina Qualified Code(s): I25.10 - Atherosclerotic heart disease of [place] coronary artery without angina pectoris Category: Medical Code(s): I25.10 - Atherosclerotic heart disease of [place] coronary artery without angina pectoris (9) Hypertension: Status: Chronic Qualifiers: Hypertension type: primary hypertension Qualified Code(s): I10 - Essential (primary) hypertension Category: Medical Code(s): I10 - Essential (primary) hypertension (10) Hyperlipidemia: Status: Chronic Qualifiers: Hyperlipidemia type: mixed hyperlipidemia Qualified Code(s): E78.2 - Mixed hyperlipidemia Category: Medical Code(s): E78.5 - Hyperlipidemia, unspecified Plan Delia Buchanan is a 62-year-old female with a medical history significant for COPD (2 L with exertion as needed), current tobacco smoker (4 cigarettes/day), HFrEF (LVEF 25 to 30% on 08/11/2023), A-flutter (on Xarelto, s/p unsuccessful cardioversion August 2023), CAD, hypertension, hyperlipidemia, hypothyroidism presents with 1 week of yellow productive cough, shortness of breath, leg swelling which significantly worsened yesterday. Discussed case with ED attending decision was made to admit patient for acute on chronic hypoxic, hypercapnic respiratory failure secondary to COPD, HFrEF exacerbation, and A- flutter. #Acute on chronic hypoxic respiratory failure #Acute hypercapnic respiratory failure ? Most consistent with acute COPD exacerbation and HFrEF exacerbation present on arrival. See separate problems. #HFrEF exacerbation ? Patient has a longstanding history of HFpEF, however recent ALLA for A-flutter cardioversion in August 2023 reveals LVEF 25 to 30%. ? Patient reports increased leg swelling over the last week, adherent to home medications however she cannot recall the names of the medications. ? BNP 3140, however CXR does not reveal fluid overload. She does have bilateral lower extremity 1+ pitting edema, which she states was worse yesterday. ? Home Lasix dose: 60 mg daily. ED administered IV Lasix 40 mg. Plan: ? IV Lasix 40 mg twice daily scheduled. Monitor renal function, electrolytes closely. ? Risk stratify HFrEF with A1c, lipid panel, TSH. ? GDMT: Jardiance 10 mg. Will use short acting metoprolol tartrate given concomitant tachycardia with A-flutter, consider switching to succinate once tachycardia improves. Plan to start Entresto tomorrow after soft BP improves. MRA can be initiated outpatient. ? Follow-up limited ECHO to evaluate change in LVEF. ? Will need close follow-up with cardiology outpatient. Will also benefit from cardiac rehab. #Acute COPD exacerbation #? Community-acquired pneumonia ? Patient reports 1 week onset of increased cough and productive sputum with color change to yellow. No sick contacts, reports adherence with inhalers. Uses Symbicort and albuterol at home. ? VBG shows new hypercapnia compared to past studies, 56.3. However, compensated with pH 7.33. Mild leukocytosis 12.9. ? Exam reveals bilateral decreased air movement, moderate wheezing, increased work of breathing. No fever, upper respiratory symptoms. ? CXR does not show acute findings. ? PSI risk class IV. Plan: ? Levalbuterol, ipratropium breathing treatments scheduled and as needed. Avoid albuterol at this time given tachycardia. ? Pulmicort scheduled. ? Prednisone 40 mg day 1/5. ? Ceftriaxone, azithromycin day 1/5. Ceftriaxone can be discontinued if low suspicion for CAP tomorrow. ? Follow-up respiratory panel. Obtain MRSA PCR if leukocytosis worsens, or patient becomes febrile. #Atrial flutter with RVR #Tachycardia ? Longstanding history of refractory atrial flutter, follows closely with cardiology. ? Refractory to cardioversion in August 2023, cardiology plans for outpatient ablation. ? Presented with HR 143, improved with IV metoprolol 5 mg but was transiently bradycardic thereafter. ? Likely exacerbated by HFrEF exacerbation and AECOPD. ? Potassium normal, magnesium pending. Plan: ? Metoprolol tartrate 12.5 mg 4 times daily scheduled for better coverage for A- flutter. Can be switched to succinate once tachycardia improves given concomitant HFrEF for GDMT coverage. ? IV metoprolol 2.5 mg as needed for breakthrough HR > 120. ? Continue home Eliquis 5 mg twice daily. She states she takes this instead of Xarelto (per cardiology recommendation) because she states she does not have a set dinner time to take with Xarelto. - Follow-up chest CTAP to rule out pulmonary embolus ordered by ED. ? Continue to treat HFrEF, COPD exacerbation. ? Follow-up magnesium level, TSH. ? Goal K+ > 4, Mg > 2. ? Consider cardiology consult in the morning if a flutter not well-controlled. #Hypothyroidism ? Resumed home levothyroxine 50 mcg. ? Follow-up TSH, T4. #CAD, hyperlipidemia ? Aspirin, atorvastatin #Hypertension ? Resume home medications once appropriate for BP. CODE STATUS: Full code Diet: Cardiac DVT prophylaxis: Home Eliquis
[2023-10-22] MEDS: predniSONE 20MG TAB 40 MG PO (17:14)
[2023-10-22] MEDS: METOPROLOL TARTRATE 25MG TABLET 12.5 MG PO (17:14)
[2023-10-22 17:25] LABS: Troponin I < 0.01 ng/ml (0.00-0.034)
[2023-10-22] MEDS: FUROSEMIDE 20 MG/2 ML VIAL 40 MG IV (18:17)
[2023-10-22] MEDS: ACETAMINOPHEN 325MG TAB 650 MG PO (18:18)
[2023-10-22 18:44] LABS: Magnesium 1.9 mg/dl (1.6-2.3)
[2023-10-22] MEDS: BUDESONIDE 0.5MG/2ML NEB 0.5 MG IH (19:09)
[2023-10-22] MEDS: IPRATROPIUM BROMIDE 0.5 MG/2.5ML SOLUTION IH (19:09)
[2023-10-22] MEDS: LEVALBUTEROL 1.25MG/3ML NEB 1.25 MG IH (19:10)
[2023-10-22] MEDS: APIXABAN 5MG TABLET 5 MG PO (20:00)
[2023-10-22] MEDS: ATORVASTATIN 40MG TABLET 40 MG PO (20:01)
--- NOTE | 2023-10-22 20:25 | ECG_ITS ---
APPROVED REPORT Exam: Resting ECG HR:136 bpm ECG Measurements Heart Rate 136 AXES QRSd 113 QRS 69 QT 348 T 219 QTc 428 Conclusion ATRIAL FLUTTER/TACHYCARDIA WITH RAPID VENTRICULAR RESPONSE INCOMPLETE RIGHT BUNDLE BRANCH BLOCK Diffuse ST-T wave changes most likely rate affect ABNORMAL ECG UNCONFIRMED REPORT Electronically signed by : Favian Willard MD 10/23/2023 08:32:22
[2023-10-22] MEDS: KETOROLAC 30MG/ML VIAL 15 MG IV (20:36)
[2023-10-22] MEDS: MORPHINE 2MG/ML SYRINGE 2 MG IV ×2 (21:31→23:03)
[2023-10-22] MEDS: PANTOPRAZOLE 40MG TABLET 40 MG PO (21:32)
[2023-10-22] MEDS: METOPROLOL TARTRATE 5MG/5ML VIAL 2.5 MG IV ×2 (22:25→23:45)
[2023-10-22 22:38] LABS: Adenovirus,PCR Not Detected (NotDetected); Bordetella Pertussis Not Detected (NotDetected); Chlamydophila Pneumoniae, PCR Not Detected (NotDetected); Coronavirus 19, PCR Not Detected (NotDetected); Coronavirus 229E Not Detected (NotDetected); Coronavirus NL63 Not Detected (NotDetected); Coronavirus OC43 Not Detected (NotDetected); Coronovirus HKU1,PCR Not Detected (NotDetected); Human Metapneumovirus Not Detected (NotDetected); Influenza A, PCR Not Detected (NotDetected); Influenza AH1, 2009 Not Detected (NotDetected); Influenza AH1, PCR Not Detected (NotDetected); Influenza AH3,PCR Not Detected (NotDetected); Influenza B, PCR Not Detected (NotDetected); Mycoplasma Pneumoniae, PCR Not Detected (NotDetected); Parainfluenza 1, PCR Not Detected (NotDetected); Parainfluenza 2, PCR Not Detected (NotDetected); Parainfluenza 3, PCR Not Detected (NotDetected); Parainfluenza 4, PCR Not Detected (NotDetected); Respiratory Syncytial Virus Not Detected (NotDetected)
[2023-10-22] MEDS: LORazepam 1MG TABLET 1 MG PO (22:50)
--- NOTE | 2023-10-22 22:55 | P.EN_ITS ---
1. Fluctuating heart rate and blood pressure, patient has received several doses of Lopressor 5 going to go with the as needed 2.5 now. Heart rate and decreasing from 130 suddenly to 98 also blood pressure 156 systolic had decreased to 110/58., Patient is requiring frequent monitoring so we will moved to a stepdown bed moved to room 219 Written report for CTA of the lungs showed no PE or acute findings. 2. Mid back pain between scapula, past radiology has shown fairly significant degenerative disc disease in the thoracic region. Patient is complaining of significant pain and so morphine is being tried at this time also 15 of Toradol. Will continue to try to titrate pain medication to give her some relief and possible rest tonight 3. Respiratory status patient on 2 L O2 saturations vary from 91% up to about 95% respiratory rate is 20 and sometimes greater. She is able to talk clearly and she is using secondary muscle to raise her shoulders and neck while she is breathing.. Also noting quite muscular development of neck probably related to her COPD and stiff chest wall. plan still wanted the patient monitored more frequently so now in stepdown the patient is stable blood pressure and pulse is normal she has received 1 mg of Ativan to see if this will help her rest will continue with the 2.5 of the beta- iftikhar if heart rate above 120 continuing to monitor blood pressure.
--- NOTE | 2023-10-22 23:46 | PC.NURSE ---
HR sustaining 130s at this time. PRN metoprolol administered
[2023-10-23] VITALS (20 sets, daily range): BP systolic 102–135; BP diastolic 56–96; PULSE 77–136; RESP 12–26; TEMP 36.4–36.8; O2SAT 89–100; BMI 21.4
[2023-10-23] MEDS: METOPROLOL TARTRATE 5MG/5ML VIAL 2.5 MG IV ×4 (00:28→05:16)
--- NOTE | 2023-10-23 00:34 | PC.NURSE ---
HR sustaining 130s, PRN metoprolol given at this time
[2023-10-23] MEDS: 0.9 % SODIUM CHLORIDE 1000ML 500 ML 250 ML IV (00:59)
[2023-10-23] MEDS: MORPHINE 4MG/ML SYRINGE 4 MG IV ×3 (00:59→16:33)
[2023-10-23 01:09] LABS: Rhinovirus/Enterovirus Detected (NotDetected)
[2023-10-23] MEDS: HYDROMORPHONE 2MG/ML SYRINGE 0.5 MG IV (03:36)
--- NOTE | 2023-10-23 03:55 | PC.NURSE ---
pt hr 136, atrial flutter, desirae sutton made aware. metoprolol 5 mg ivp given, waited 30 min, hr cont to be 136 after 1st dose of metoprolol 5 mg given. pt then given an additional dose of metoprolol 5 mg ivp. hr dropped to 98 atrial flutter with second dose of metoprolol. pt reports chest pain 8/10 radiating to shoulders and between shoulder blades, desirae sutton at bedside. ekg ordered. toradol ordered and given, no effectiveness per pt. pt ordered morphine 2 mg x1 with minimal decrease in pain, desirae sutton made aware. pt then went back into a. flutter with rvr of 136 again. went back to assess pt and hr has returned to 102. decision at this point was to transfer pt to step down unit. pt transferred to rm 219. report given to receiving nurse
--- NOTE | 2023-10-23 04:04 | EXP.PN ---
Subjective *Date: 10/23/23 *Time: 04:04 Interval history: Patient even though receiving morphine, states still having significant chest pain basically in the middle of her back between the scapula. Very little relief from the morphine., Was going to try [place] but she said [place] just does not do anything for her. Patient's heart rate blood pressure continues to fluctuate now that been a bit since the low pressors been given heart rate has been staying in the 130s will repeat the Lopressor Exam Data for Last 24 hours Vital signs and Labs for Last 24 Hours: Temp Pulse Resp BP Pulse Ox O2 Del Method O2 Flow Rate 98.3 F 108 H 26 H 121/70 96 Nasal Cannula 2 10/23/23 00:00 10/23/23 02:00 10/23/23 02:00 10/23/23 02:00 10/23/23 02:00 10/23/23 02:55 10/23/23 02:55 FiO2 40 10/22/23 11:21 Laboratory Results - last 24 hr 10/22/23 11:17: VBG pH 7.42 H, VBG pCO2 38.6, VBG pO2 128.0 H, VBG HCO3 24.5, VBG Total CO2 25.7, VBG O2 Saturation 98.9 H, VBG Base Excess 0.1, VBG Lactic Acid 1.2 10/22/23 11:30: WBC 12.9 H, RBC 4.48, Hgb 12.5, Hct 43.0, MCV 95.9, MCH 27.9, MCHC 29.1 L, RDW 17.2, Plt Count 383, MPV 8.2, Neut % (Auto) 85.1 H, Lymph % (Auto) 8.6 L, [place] % (Auto) 4.7, Eos % (Auto) 0.9, Baso % (Auto) 0.6, Neut # (Auto) 11.0 H, Lymph # (Auto) 1.1, [place] # (Auto) 0.6, Eos # (Auto) 0.1, Baso # (Auto) 0.1, Total Counted 100, Neutrophils % (Manual) 85 H, Lymphocytes % (Manual) 10, Monocytes % (Manual) 5, Platelet Estimate Normal, RBC Morphology Normal, Sodium 140, Potassium 4.2, Chloride 110 H, Carbon Dioxide 29, Anion Gap 5.2, BUN 12, Creatinine 0.50 L, Estimated Creat Clear 131, Estimated GFR 126, Est GFR ( Amer) 152, Glucose 109 H, Calcium 8.6, Total Bilirubin 0.7, AST 35, ALT 39, Alkaline Phosphatase 114, Troponin I < 0.01, NT-Pro-B Natriuret Pep 3140 H, Total Protein 7.1, Albumin 3.9, Globulin 3.2, Albumin/Globulin Ratio 1.2 10/22/23 14:16: VBG pH 7.33, VBG pCO2 56.3 H, VBG pO2 53.4 H, VBG HCO3 29.2, VBG Total CO2 30.9 H, VBG O2 Saturation 86.2 H, VBG Base Excess 3.3 H, VBG Lactic Acid 1.7 10/22/23 14:22: Troponin I < 0.01 10/22/23 16:50: Troponin I < 0.01 10/22/23 18:16: Magnesium 1.9 10/22/23 22:30: Chlamy pneumoniae PCR Not detected, Adenovirus (PCR) Not detected, B. pertussis DNA (PCR) Not detected, Coronavirus OC43 (PCR) Not detected, Coronavirus HKU1 (PCR) Not detected, Coronavirus 229E (PCR) Not detected, SARS-CoV-2 (PCR) Not detected, Coronavirus NL63 (PCR) Not detected, Human Metapneumovir PCR Not detected, Influenza A (H1) PCR Not detected, Influ A (H1N1/09) PCR Not detected, Influenza A (H3) PCR Not detected, Influenza Type A (PCR) Not detected, Influenza Type B (PCR) Not detected, M. pneumoniae (PCR) Not detected, Parainfluenza 1 (PCR) Not detected, Parainfluenza 2 (PCR) Not detected, Parainfluenza 3 (PCR) Not detected, Parainfluenza 4 (PCR) Not detected, RSV (PCR) Not detected, Entero/Rhino (PCR) Detected A I & O for Last 24 hours: Intake & Output 10/20/23 10/21/23 10/22/23 10/23/23 23:59 23:59 23:59 23:59 Intake Total 240 / 240 Output Total 400 / 400 0 / 0 Balance -160 / -160 0 / 0 Weight 69.4 kg Constitutional Constitutional: mild distress Comments: Patient repay reports pain as being an 8 of 10 in the middle of her back. Denies heartburn type symptoms, *Routine Respiratory Exam Respiratory: Present accessory muscle use Comments: Patient respiratory rate remains about 26, oxygen saturations generally above 91 on 2 L. *Routine Cardiovascular Exam Cardiovascular: Present tachycardia Comments: With beta-iftikhar heart rate will come down to around 100 for short period of time then begins to increase back up to approximately 136 is a normal rate for her, at the time so we will fluctuate to a lower level also noting that blood pressure at times will drop systolic into the 90s other times up to the 150s, *Routine Abdominal Exam Comments: No nausea reported able to eat, Assessment and Plan *Assessment and plan (1) Atrial flutter with rapid ventricular response: Status: Acute Category: Medical Code(s): I48.92 - Unspecified atrial flutter (2) Thoracic back pain: Status: Acute Category: Medical Code(s): M54.6 - Pain in thoracic spine Plan 1. Will continue to use the Lopressor 2.5 if heart rate maintains greater than 120 2. Back pain: Will try 0.5 of Dilaudid to see if this will help her with the initial pain., Also am going to give a GI cocktail in case this is esophageal spasm versus some type of esophagitis with referring pain, There was no pain in the right upper quadrant so I do not believe this is any type of referred liver pain, will discuss with the oncoming hospitalist physician about maybe trying nitroglycerin 1 time to see if this would help with pain if not controlled in a three-way. Question whether this is some type of atypical angina even though she has normal troponins, old records show that ejection fraction is was like 25%. Have not been able to find a true source of the pain cannot rule out degenerative disc disease, the other option this could be is from her increased effort for breathing that she has caused muscle strain in her mid back. Did try Ativan once to see if it was anxiety versus also muscle spasm. The Ativan did not help the back pain and any level. Will continue to monitor the patient trying to keep her comfortable, control her heart rate and maintain blood pressure, also will evaluate respiratory status for any acute changes
[2023-10-23] MEDS: BELLADONNA ALKALOIDS 60 ML ML PO (04:26)
--- NOTE | 2023-10-23 06:16 | PC.NURSE ---
Pt is alert and oriented. Now on 4L NC to maintain goal of >93%. Uses bedside commode. Remains in A.flutter. Intermittently sustained 130s HR, treated with PRN med per apr and at [facility] Jean order. 09/17 pain to medial back, treated per apr with little relief, [facility] aware and orders carried out. Crackles noted in lung bases. Has not rested. Call light in reach.
[2023-10-23] MEDS: LEVALBUTEROL 1.25MG/3ML NEB 1.25 MG IH ×3 (06:27→18:44)
[2023-10-23] MEDS: BUDESONIDE 0.5MG/2ML NEB 0.5 MG IH ×2 (06:27→18:44)
[2023-10-23] MEDS: IPRATROPIUM BROMIDE 0.5 MG/2.5ML SOLUTION IH ×4 (06:27→18:44)
[2023-10-23 07:25] LABS: Basophils % 0.1 % (0.1-2.0); Eosinophils % 0.1 % (0.1-12.0); Hematocrit 38.9 % (37.0-47.0); Hemoglobin 11.6 g/dL (12.2-16.2); Lymphocytes # 0.6 K/mm3 (0.7-4.5); Lymphocytes % 6.8 % (10-50); Mean Corpuscular HGB Conc 29.8 g/dL (31.8-35.4); Mean Corpuscular Volume 93.9 fl (81-99); Mean Platelet Volume 9.1 fl (7.4-10.4); Monocytes # 0.3 K/mm3 (0.1-1.0); Monocytes % 3.1 % (1.7-9.3); Neutrophils # 8.2 K/mm3 (1.8-7.8); Neutrophils % 89.8 % (37.0-80.0); Platelet Count 374 K/mm3 (142-424); Red Blood Count 4.14 M/mm3 (4.20-5.40); White Blood Count 9.1 K/mm3 (4.8-10.8)
[2023-10-23 07:26] LABS: Chol/HDL Ratio 2.7 (1-3.5); Cholesterol 175 mg/dl (140-200); HDL Cholesterol 64 mg/dl (40-60); Triglycerides 63 mg/dl (30-150); VLDL Cholesterol 13 mg/dL (0-40)
[2023-10-23 07:29] LABS: Anion Gap 6.4 mEq/L (5-15); Blood Urea Nitrogen 24 mg/dl (7-17); Calcium 8.5 mg/dl (8.4-10.2); Carbon Dioxide 30 mmol/L (22.0-30.0); Chloride 105 mmol/L (98-107); Creatinine Clearance Estimated 82 mL/min (50-200); Estimated Glomerular Filt Rate 73 ml/min (>60); GFR (African American) 89 ML/MIN (>60); Glucose 152 mg/dl (74-100); Magnesium 2.1 mg/dl (1.6-2.3); Potassium 4.4 mmoL/L (3.5-5.1); Sodium 137 mmol/L (136-145)
[2023-10-23 07:36] LABS: Direct LDL Cholesterol 75.23 mg/dL (100-129)
[2023-10-23 07:57] LABS: Thyroid Stimulating Hormone 0.64 uIU/mL (0.465-4.68)
[2023-10-23 08:01] LABS: MANUAL DIFFERENTIAL MANUAL DIFFERENTIAL (MANUAL DIFF)
[2023-10-23] MEDS: MORPHINE 2MG/ML SYRINGE 2 MG IV ×3 (08:50→20:28)
[2023-10-23] MEDS: dilTIAZem ER 240MG CAPSULE 240 MG PO (09:26)
[2023-10-23] MEDS: FUROSEMIDE 40 MG TABLET PO (09:26)
[2023-10-23] MEDS: APIXABAN 5MG TABLET 5 MG PO ×2 (09:26→20:27)
[2023-10-23] MEDS: ASPIRIN EC 81MG TABLET 81 MG PO (09:26)
[2023-10-23] MEDS: LEVOTHYROXINE 50MCG (0.05MG) TAB 50 MCG PO (09:26)
[2023-10-23] MEDS: EMPAGLIFLOZIN 10MG TABLET 10 MG PO (09:27)
[2023-10-23] MEDS: predniSONE 20MG TAB 40 MG PO (09:27)
[2023-10-23 09:39] LABS: Hemoglobin A1C 6.2 % (4.0-6.0)
[2023-10-23 09:51] LABS: Free T4 (Free Thyroxine) 1.01 ng/dl (0.78-2.19)
[2023-10-23] MEDS: LIDOCAINE 5% TRANSDERMAL PATCH 1 EACH TP (10:49)
[2023-10-23 11:03] LABS: Lymphocytes % 9 % (10-50); Monocytes % 2 % (2-9); Neutrophils % 89 % (42-76); Platelet Estimate Normal; RBC Morphology Normal; Total Cells Counted 100
--- NOTE | 2023-10-23 12:16 | EXP.PN ---
Subjective *Date: 10/23/23 *Time: 13:27 Interval history: Overnight, patient continued to be in a flutter with RVR but hemodynamically stable. She was given both p.o. and IV metoprolol with minimal response. Home diltiazem was started and given, but then later discontinued given contraindication to patient's HFrEF. During this time, patient had mild shortness of breath and and otherwise acutely asymptomatic. This morning, patient was sitting in bed without acute distress. She states her breathing has improved since yesterday, especially with diuresis. She notes her lower extremities swelling are back to normal. Denies chest pain, shortness of breath, abdominal pain, urinary symptoms. Exam Data for Last 24 hours Vital signs and Labs for Last 24 Hours: Temp Pulse Resp BP Pulse Ox O2 Del Method O2 Flow Rate 97.7 F 134 H 20 123/77 96 Nasal Cannula 4 10/23/23 08:00 10/23/23 11:43 10/23/23 10:00 10/23/23 10:00 10/23/23 11:43 10/23/23 11:43 10/23/23 11:43 FiO2 40 10/22/23 11:21 Laboratory Results - last 24 hr 10/22/23 14:16: VBG pH 7.33, VBG pCO2 56.3 H, VBG pO2 53.4 H, VBG HCO3 29.2, VBG Total CO2 30.9 H, VBG O2 Saturation 86.2 H, VBG Base Excess 3.3 H, VBG Lactic Acid 1.7 10/22/23 14:22: Troponin I < 0.01 10/22/23 16:50: Troponin I < 0.01 10/22/23 18:16: Magnesium 1.9 10/22/23 22:30: Chlamy pneumoniae PCR Not detected, Adenovirus (PCR) Not detected, B. pertussis DNA (PCR) Not detected, Coronavirus OC43 (PCR) Not detected, Coronavirus HKU1 (PCR) Not detected, Coronavirus 229E (PCR) Not detected, SARS-CoV-2 (PCR) Not detected, Coronavirus NL63 (PCR) Not detected, Human Metapneumovir PCR Not detected, Influenza A (H1) PCR Not detected, Influ A (H1N1/09) PCR Not detected, Influenza A (H3) PCR Not detected, Influenza Type A (PCR) Not detected, Influenza Type B (PCR) Not detected, M. pneumoniae (PCR) Not detected, Parainfluenza 1 (PCR) Not detected, Parainfluenza 2 (PCR) Not detected, Parainfluenza 3 (PCR) Not detected, Parainfluenza 4 (PCR) Not detected, RSV (PCR) Not detected, Entero/Rhino (PCR) Detected A 10/23/23 06:22: WBC 9.1 D, RBC 4.14 L, Hgb 11.6 L, Hct 38.9, MCV 93.9, MCH 28.0, MCHC 29.8 L, RDW 17.0, Plt Count 374, MPV 9.1, Neut % (Auto) 89.8 H, Lymph % (Auto) 6.8 L, [place] % (Auto) 3.1, Eos % (Auto) 0.1, Baso % (Auto) 0.1, Neut # (Auto) 8.2 H, Lymph # (Auto) 0.6 L, [place] # (Auto) 0.3, Eos # (Auto) 0.0, Baso # (Auto) 0.0, Total Counted 100, Neutrophils % (Manual) 89 H, Lymphocytes % (Manual) 9 L, Monocytes % (Manual) 2, Platelet Estimate Normal, RBC Morphology Normal, Sodium 137, Potassium 4.4, Chloride 105, Carbon Dioxide 30, Anion Gap 6.4, BUN 24 H D, Creatinine 0.80 D, Estimated Creat Clear 82, Estimated GFR 73, Est GFR ( Amer) 89 D, Glucose 152 H D, Hemoglobin A1c 6.2 H, Calcium 8.5, Magnesium 2.1 D, Triglycerides 63, Cholesterol 175, LDL Cholesterol Direct 75.23 L, VLDL Cholesterol 13, HDL Cholesterol 64 H, Cholesterol/HDL Ratio 2.7, TSH 0.64, Free T4 1.01 I & O for Last 24 hours: Intake & Output 10/20/23 10/21/23 10/22/23 10/23/23 23:59 23:59 23:59 23:59 Intake Total 240 / 240 1002 / 1002 Output Total 400 / 400 0 / 0 Balance -160 / -160 1001 / 1002 Weight 69.4 kg 69.4 kg Microbiology Reports for the Last 24 Hours: Microbiology 10/22/23 11:30 Blood Blood Culture - Preliminary NO GROWTH AFTER 24 HOURS Constitutional Constitutional: no acute distress Comments: Patient repay reports pain as being an 8 of 10 in the middle of her back. Denies heartburn type symptoms, *Routine HEENT Exam Head: Present normocephalic Eye: Present EOMI and PERRL ENT: Present mucous membranes moist *Routine Neck Exam Neck: Present supple; Absent lymphadenopathy *Routine Respiratory Exam Respiratory: Present decreased breath sounds and wheezes; Absent crackles Comments: Patient respiratory rate remains about 26, oxygen saturations generally above 91 on 2 L. *Routine Cardiovascular Exam Cardiovascular: Present RRR and irregular rhythm Comments: With beta-iftikhar heart rate will come down to around 100 for short period of time then begins to increase back up to approximately 136 is a normal rate for her, at the time so we will fluctuate to a lower level also noting that blood pressure at times will drop systolic into the 90s other times up to the 150s, *Routine Abdominal Exam Abdominal: Present soft and normoactive bowel sounds; Absent tenderness Comments: No nausea reported able to eat, *Routine Extremities Exam Extremities: Absent cyanosis, clubbing or edema *Routine Skin Exam Skin: Present warm; Absent rash *Routine Neurological Exam Neurological: Present alert and oriented X3 Assessment and Plan *Assessment and plan (1) CHF exacerbation: Status: Acute Qualifiers: Heart failure type: systolic Qualified Code(s): I50.23 - Acute on chronic systolic (congestive) heart failure Category: Medical Code(s): I50.9 - Heart failure, unspecified (2) PNA (pneumonia): Status: Acute Qualifiers: Laterality: unspecified laterality Lung location: unspecified part of lung Pneumonia type: due to unspecified organism Qualified Code(s): J18.9 - Pneumonia, unspecified organism Category: Medical Code(s): J18.9 - Pneumonia, unspecified organism (3) COPD exacerbation: Status: Acute Category: Medical Code(s): J44.1 - Chronic obstructive pulmonary disease with (acute) exacerbation (4) Smoking greater than 30 pack years: Status: Acute Category: Social Hx Code(s): F17.210 - Nicotine dependence, cigarettes, uncomplicated (5) Dyspnea on exertion: Status: Acute Category: Medical Code(s): R06.09 - Other forms of dyspnea (6) Atrial flutter with rapid ventricular response: Status: Acute Category: Medical Code(s): I48.92 - Unspecified atrial flutter (7) Hypothyroidism: Status: Chronic Qualifiers: Hypothyroidism type: unspecified Qualified Code(s): E03.9 - Hypothyroidism, unspecified Category: Medical Code(s): E03.9 - Hypothyroidism, unspecified (8) Coronary artery disease: Status: Chronic Qualifiers: Associated angina: without angina Coronary Disease-Associated Artery/Lesion type: [place] artery [place] vs. transplanted heart: [place] heart Qualified Code(s): I25.10 - Atherosclerotic heart disease of [place] coronary artery without angina pectoris Category: Medical Code(s): I25.10 - Atherosclerotic heart disease of [place] coronary artery without angina pectoris (9) Hypertension: Status: Chronic Qualifiers: Hypertension type: primary hypertension Qualified Code(s): I10 - Essential (primary) hypertension Category: Medical Code(s): I10 - Essential (primary) hypertension (10) Hyperlipidemia: Status: Chronic Qualifiers: Hyperlipidemia type: mixed hyperlipidemia Qualified Code(s): E78.2 - Mixed hyperlipidemia Category: Medical Code(s): E78.5 - Hyperlipidemia, unspecified Plan Delia Buchanan is a 62-year-old female with a medical history significant for COPD (2 L with exertion as needed), current tobacco smoker (4 cigarettes/day), HFrEF (LVEF 25 to 30% on 08/11/2023), A-flutter (on Eliquis, s/p unsuccessful cardioversion August 2023), CAD, hypertension, hyperlipidemia, hypothyroidism presented on 10/22/2023 with 1 week of yellow productive cough, shortness of breath, leg swelling which significantly worsened yesterday. Discussed case with ED attending and decision was made to admit patient for acute on chronic hypoxic, hypercapnic respiratory failure secondary to COPD, HFrEF exacerbation, and A-flutter with RVR. #Atrial flutter with RVR ? Longstanding history of refractory atrial flutter, follows closely with cardiology. ? Refractory to cardioversion in August 2023, cardiology is planning for outpatient ablation. ? Presented with HR 143, minimal improvement with IV and p.o. metoprolol. ? Likely exacerbated by HFrEF and COPD exacerbation. ? CTAP unremarkable for pulmonary embolus ordered by ED. ? Orthostatic vitals performed today unremarkable making overdiuresis/dehydration unlikely contributor for tachycardia. Plan: ? Increased metoprolol tartrate to 50 mg 3 times daily for RVR. IV metoprolol 2.5 mg available for breakthrough HR >120. ? Discontinued Home diltiazem given patient's HFrEF. ? If RVR refractory to increased dose of metoprolol titrate, will start amiodarone gtt. ? Continue home Eliquis 5 mg twice daily. She prefers this over Xarelto as she states she does not have a set dinnertime to take Xarelto. ? Continue to treat HFrEF, COPD exacerbation. ? Goal K+ > 4, Mg > 2. Replete as appropriate. #Acute on chronic hypoxic respiratory failure #Acute hypercapnic respiratory failure ? Most consistent with acute COPD exacerbation and HFrEF exacerbation present on arrival. See separate problems. #HFrEF exacerbation, resolved #New onset HFrEF ? Patient has a longstanding history of HFpEF, however recent ALLA for A-flutter cardioversion in August 2023 reveals LVEF 25 to 30%. ? Patient reports increased leg swelling over the last week, adherent to home medications however she cannot recall the names of the medications. ? Initial BNP 3140. Lower extremity pitting edema resolved today after diuresis. ? Home Lasix dose: 60 mg daily. ED administered IV Lasix 40 mg. Plan: ? De-escalate to home Lasix regimen, scheduled Lasix 30 mg twice daily as patient is euvolemic today. ? Risk stratification for HFrEF: A1c, lipid panel, TSH normal. ? Given known history of CAD, current smoker, and new HFrEF, patient will benefit from ischemic workup. Plan for cardiology consult on Wednesday. ? GDMT: Jardiance 10 mg. Will use short acting metoprolol tartrate given concomitant A-flutter w/ RVR, consider switching to succinate once tachycardia improves. Plan to start Entresto and MRA once A-flutter with RVR resolves. ? Follow-up limited ECHO to evaluate change in LVEF. ? Will need close follow-up with cardiology outpatient. Will also benefit from cardiac rehab. #Acute COPD exacerbation #? Community-acquired pneumonia ? Patient reported 1 week onset of increased cough and productive sputum with color change to yellow on admission. No sick contacts, reports adherence with inhalers. Uses Symbicort and albuterol at home. ? VBG shows new hypercapnia compared to past studies, 56.3. However, compensated with pH 7.33. Mild leukocytosis 12.9. ? Exam reveals bilateral decreased air movement, moderate wheezing, increased work of breathing but improved today. No fever, upper respiratory symptoms. ? CXR does not show acute findings. ? PSI risk class IV. Plan: ? Ipratropium breathing treatments scheduled and as needed. Will hold levalbuterol given persistent tachycardia. Avoid albuterol at this time given tachycardia. ? Pulmicort scheduled. ? Prednisone 40 mg day 2/5. ? Ceftriaxone, azithromycin day 2/5. Ceftriaxone can be discontinued if low suspicion for CAP tomorrow. ? Follow-up respiratory panel. Obtain MRSA PCR if leukocytosis worsens, or patient becomes febrile. #Hypothyroidism ? Resumed home levothyroxine 50 mcg. ? Repeat TSH, T4 normal. #CAD, hyperlipidemia ? Aspirin, atorvastatin. #Hypertension ? Resume home medications once appropriate for BP. CODE STATUS: Full code Diet: Cardiac DVT prophylaxis: Home Eliquis
[2023-10-23] MEDS: CEFTRIAXONE 1 GM 1 GM in 0.9 % SODIUM CHLORIDE 50 ML IV (12:49)
[2023-10-23] MEDS: METOPROLOL TARTRATE 50MG TABLET 50 MG PO ×2 (12:53→20:27)
[2023-10-23] MEDS: FUROSEMIDE 20MG TABLET 30 MG PO ×2 (12:53→15:48)
[2023-10-23] MEDS: AZITHROMYCIN 500 MG in 0.9 % SODIUM CHLORIDE 250 ML 250 MG IV (13:18)
[2023-10-23] MEDS: ACETAMINOPHEN 325MG TAB 650 MG PO (14:25)
--- NOTE | 2023-10-23 15:52 | PC.NURSE ---
PT'S FAMILY BROUGHT HER A LARGE ICED COFFEE FROM [employer] PT WAS RE-EDUCATED THAT SHE WAS ON A FLUID RESTRICTION AND WOULD NOT BE ABLE TO DRINK THE WHOLE LARGE COFFEE.
--- NOTE | 2023-10-23 15:56 | ECG_ITS ---
APPROVED REPORT Exam: Resting ECG HR:92 bpm ECG Measurements Heart Rate 92 AXES QRSd 117 QRS 72 QT 340 T 76 QTc 390 Conclusion ATRIAL FLUTTER/TACHYCARDIA INCOMPLETE RIGHT BUNDLE BRANCH BLOCK [90+ ms QRS DURATION, TERMINAL R IN V1/V2, 40+ ms S IN I/aVL/V4/V5/V6] MINIMAL VOLTAGE CRITERIA FOR LVH, CONSIDER NORMAL VARIANT [MEETS CRITERIA IN ONE OF: R(aVL), S(V1), R(V5), R(V5/V6)+S(V1)] NONSPECIFIC ST & T-WAVE ABNORMALITY ABNORMAL RHYTHM ECG UNCONFIRMED REPORT Electronically signed by : Favian Willard MD 10/26/2023 18:19:31
[2023-10-23] MEDS: AMIODARONE HCL 150 MG in DEXTROSE 5 % IN WATER 100 ML 618 MG IV (16:10)
--- NOTE | 2023-10-23 16:11 | PC.NURSE ---
ARTURO GTT AND BOLUS MIXED AND VERIFIED WITH Ana RAMIREZ RN
[2023-10-23] MEDS: AMIODARONE HCL 900 MG in DEXTROSE 5 % IN WATER 500 ML 34.53 MG IV (16:23)
--- NOTE | 2023-10-23 18:07 | PC.NURSE ---
PT HAS DONE FAIR THIS SHIFT. STARTED A 2,000ML FLUID RESTRICTION TODAY. PT HAS BEEN EDUCATED SEVERAL TIMES ON RESTRICTION. STARTED ON AMIO GTT THIS AFTERNOON AND SHE IS TOLERATING IT WELL. HEART RATE IS IN THE UPPER 90'S UWITH UNDERLYING RHYTHM OF A- FLUTTER 2:1 TO 3:1. SHE HAS C/O SHORTNESS OF BREATH AROUND NOON. PRN BREATHING TREATMENTS GIVEN. PRN PAIN MEDICATIONS ALSO GIVEN.
[2023-10-23] MEDS: ATORVASTATIN 40MG TABLET 40 MG PO (20:27)
[2023-10-24] VITALS (19 sets, daily range): BP systolic 103–134; BP diastolic 64–94; PULSE 70–94; RESP 18–22; TEMP 36.4–36.9; O2SAT 85–99; BMI 21.3
--- NOTE | 2023-10-24 05:28 | PC.NURSE ---
Patient has been able to sleep more tonight. Patient did void x2 in the floor both times was very large amount. Due to wanting to keep I&O accurate we placed a purewick on in hopes of keeping a better record while she is asleep. If patient is awake we still took to the bedside commode. Remains on 3 L NC sating in the 90s but does drop some with ambulation. HR has remained in control. no other issues
[2023-10-24] MEDS: LEVOTHYROXINE 50MCG (0.05MG) TAB 50 MCG PO (06:21)
[2023-10-24] MEDS: MORPHINE 2MG/ML SYRINGE 2 MG IV ×3 (06:21→23:13)
[2023-10-24] MEDS: IPRATROPIUM BROMIDE 0.5 MG/2.5ML SOLUTION IH ×4 (07:52→21:45)
[2023-10-24] MEDS: BUDESONIDE 0.5MG/2ML NEB 0.5 MG IH ×2 (07:52→18:19)
[2023-10-24] MEDS: LEVALBUTEROL 1.25MG/3ML NEB 1.25 MG IH ×4 (07:52→21:46)
[2023-10-24] MEDS: MORPHINE 4MG/ML SYRINGE 4 MG IV ×3 (08:02→20:14)
[2023-10-24 08:07] LABS: Anion Gap 2.9 mEq/L (5-15); Blood Urea Nitrogen 37 mg/dl (7-17); Calcium 8.4 mg/dl (8.4-10.2); Carbon Dioxide 38 mmol/L (22.0-30.0); Chloride 100 mmol/L (98-107); Creatinine Clearance Estimated 59 mL/min (50-200); Estimated Glomerular Filt Rate 51 ml/min (>60); GFR (African American) 61 ML/MIN (>60); Glucose 114 mg/dl (74-100); Potassium 3.9 mmoL/L (3.5-5.1); Sodium 137 mmol/L (136-145)
[2023-10-24] MEDS: ASPIRIN EC 81MG TABLET 81 MG PO (08:30)
[2023-10-24] MEDS: predniSONE 20MG TAB 40 MG PO (08:30)
[2023-10-24] MEDS: EMPAGLIFLOZIN 10MG TABLET 10 MG PO (08:30)
[2023-10-24] MEDS: APIXABAN 5MG TABLET 5 MG PO ×2 (08:30→20:15)
[2023-10-24] MEDS: METOPROLOL TARTRATE 50MG TABLET 50 MG PO ×2 (08:30→13:55)
[2023-10-24] MEDS: FUROSEMIDE 20MG TABLET 30 MG PO ×2 (08:31→15:57)
[2023-10-24] MEDS: LIDOCAINE 5% TRANSDERMAL PATCH 1 EACH TP (08:32)
--- NOTE | 2023-10-24 09:23 | P.PN_ITS ---
Subjective *Date: 10/24/23 *Time: 13:03 Interval history: No acute events overnight. Heart rate doing better after starting amiodarone. Controlled this morning between 70 and 80. Remains on 3 L oxygen. Kidney function and electrolytes stable. Tolerating p.o. intake. States she does not feel any better but definitely does not feel any worse. Medical Exam Vital signs and Labs for Last 24 Hours: Vital Signs Temp Pulse Pulse Resp BP Pulse Ox O2 Del Method 10/24/23 08:00 98.1 F 83 20 105/70 L 95 Nasal Cannula 10/24/23 08:00 Nasal Cannula 10/24/23 07:55 75 10/24/23 07:55 71 10/24/23 07:55 85 L Nasal Cannula 10/24/23 07:20 94 L Nasal Cannula 10/24/23 06:49 Nasal Cannula 10/24/23 06:00 79 20 103/64 L 96 Nasal Cannula 10/24/23 05:00 Nasal Cannula 10/24/23 04:00 79 10/24/23 04:00 97.7 F 72 20 123/90 97 Nasal Cannula 10/24/23 04:00 Nasal Cannula 10/24/23 03:00 Nasal Cannula 10/24/23 02:00 88 20 124/77 97 Nasal Cannula 10/24/23 01:00 Nasal Cannula 10/24/23 00:00 85 10/24/23 00:00 97.7 F 89 20 120/73 99 Nasal Cannula 10/23/23 23:00 Nasal Cannula 10/23/23 22:00 77 20 102/69 L 100 Room Air 10/23/23 21:00 Nasal Cannula 10/23/23 20:00 114 H 10/23/23 20:00 97.6 F 96 H 24 126/88 92 L Nasal Cannula 10/23/23 20:00 Nasal Cannula 10/23/23 19:23 Nasal Cannula 10/23/23 19:21 101 H 10/23/23 19:21 100 H 10/23/23 19:00 Nasal Cannula 10/23/23 18:24 89 L Room Air 10/23/23 18:00 101 H 22 132/82 Nasal Cannula 10/23/23 17:00 Nasal Cannula 10/23/23 16:15 Nasal Cannula 10/23/23 16:00 116 H 10/23/23 16:00 98.2 F 88 20 123/56 L 96 Nasal Cannula 10/23/23 15:00 Nasal Cannula 10/23/23 14:00 134 H 22 104/76 L 95 Nasal Cannula 10/23/23 13:39 136 H 10/23/23 13:39 135 H 10/23/23 13:00 Nasal Cannula 10/23/23 12:24 135 H 131/96 H 10/23/23 12:23 135 H 120/93 H 98 Nasal Cannula 10/23/23 12:22 135 H 21 121/84 97 Nasal Cannula 10/23/23 12:00 130 H 10/23/23 11:43 96 Nasal Cannula 10/23/23 11:43 134 H 10/23/23 11:43 135 H 10/23/23 11:00 Nasal Cannula 10/23/23 10:00 132 H 20 123/77 96 Nasal Cannula O2 Flow Rate 10/24/23 08:00 3 10/24/23 08:00 3 10/24/23 07:55 10/24/23 07:55 10/24/23 07:55 3 10/24/23 07:20 3 10/24/23 06:49 3 10/24/23 06:00 3 10/24/23 05:00 3 10/24/23 04:00 10/24/23 04:00 3 10/24/23 04:00 3 10/24/23 03:00 3 10/24/23 02:00 3 10/24/23 01:00 3 10/24/23 00:00 10/24/23 00:00 3 10/23/23 23:00 3 10/23/23 22:00 10/23/23 21:00 4 10/23/23 20:00 10/23/23 20:00 4 10/23/23 20:00 4 10/23/23 19:23 4 10/23/23 19:21 10/23/23 19:21 10/23/23 19:00 4 10/23/23 18:24 10/23/23 18:00 4 10/23/23 17:00 4 10/23/23 16:15 4 10/23/23 16:00 10/23/23 16:00 4 10/23/23 15:00 4 10/23/23 14:00 4 10/23/23 13:39 10/23/23 13:39 10/23/23 13:00 4 10/23/23 12:24 10/23/23 12:23 4 10/23/23 12:22 4 10/23/23 12:00 10/23/23 11:43 4 10/23/23 11:43 10/23/23 11:43 10/23/23 11:00 3 10/23/23 10:00 3 Intake and Output 10/23/23 10/24/23 10/24/23 23:59 07:59 15:59 Intake Total 1439.482 / 2441.482 250 / 1052 802 / 1052 Output Total 700 / 1200 1300 / 1300 Balance 739.482 / 1241.482 -1050 / -248 802 / -248 Intake: Intake, Oral Amount 1230 / 2232 250 / 1052 802 / 1052 Intake, Total IV Amount 209.482 / 209.482 Output: Output, Urine Amount 700 / 1200 1300 / 1300 Other: Number of Unmeasured Voids 1 Weight 69.116 kg Patient Weight 10/24/23 23:59 Weight 69.116 kg Laboratory Results - last 24 hr 10/23/23 06:22: Total Counted 100, Neutrophils % (Manual) 89 H, Lymphocytes % (Manual) 9 L, Monocytes % (Manual) 2, Platelet Estimate Normal, RBC Morphology Normal, Hemoglobin A1c 6.2 H, Free T4 1.01 10/24/23 07:08: Sodium 137, Potassium 3.9, Chloride 100, Carbon Dioxide 38 H, Anion Gap 2.9 L, BUN 37 H D, Creatinine 1.10 H D, Estimated Creat Clear 59, Estimated GFR 51 L, Est GFR ( Amer) 61 D, Glucose 114 H, Calcium 8.4, Magnesium 2.0 I & O for Labs for Last 24 Hours: Intake & Output 10/21/23 10/22/23 10/23/23 10/24/23 23:59 23:59 23:59 23:59 Intake Total 240 / 240 2441.482 / 2441.482 1052 / 1052 Output Total 400 / 400 1200 / 1200 1300 / 1300 Balance -160 / -160 1241.482 / 1241.482 -248 / -248 Weight 69.4 kg 69.4 kg 69.116 kg Microbiology Reports for the Last 24 Hours: Microbiology 10/23/23 13:18 Sputum - Expectorated Sputum Gram Stain - Final 10/23/23 13:18 Sputum - Expectorated Sputum Sputum Culture - Preliminary 10/22/23 12:27 Blood Blood Culture - Preliminary NO GROWTH AFTER 24 HOURS 10/22/23 11:30 Blood Blood Culture - Preliminary NO GROWTH AFTER 24 HOURS Constitutional: Present no acute distress, average body habitus, chronically ill appearing and cooperative Head: Present atraumatic and normocephalic ENT: Present normal exam Neck: Present normal inspection Respiratory: Present prolonged expiratory phase, wheezes and normal respiratory effort; Absent respiratory distress, rhonchi or crackles Cardiac: Present Reg Rate and Rhythm GI: Present soft and normal bowel sounds; Absent distention or tenderness Extremities: Present normal inspection and full ROM Skin: Present intact; Absent erythema Neuro: Present Grossly Intact, alert, awake, oriented x 3 and moves all extremities Assessment and Plan *Assessment and plan (1) CHF exacerbation: Status: Acute Qualifiers: Heart failure type: systolic Qualified Code(s): I50.23 - Acute on chronic systolic (congestive) heart failure Category: Medical Code(s): I50.9 - Heart failure, unspecified (2) PNA (pneumonia): Status: Acute Qualifiers: Laterality: unspecified laterality Lung location: unspecified part of lung Pneumonia type: due to unspecified organism Qualified Code(s): J18.9 - Pneumonia, unspecified organism Category: Medical Code(s): J18.9 - Pneumonia, unspecified organism (3) Atrial flutter with rapid ventricular response: Status: Acute Category: Medical Code(s): I48.92 - Unspecified atrial flutter (4) COPD exacerbation: Status: Acute Category: Medical Code(s): J44.1 - Chronic obstructive pulmonary disease with (acute) exacerbation (5) Smoking greater than 30 pack years: Status: Acute Category: Social Hx Code(s): F17.210 - Nicotine dependence, cigarettes, uncomplicated (6) Dyspnea on exertion: Status: Acute Category: Medical Code(s): R06.09 - Other forms of dyspnea (7) Hypothyroidism: Status: Chronic Qualifiers: Hypothyroidism type: unspecified Qualified Code(s): E03.9 - Hypothyroidism, unspecified Category: Medical Code(s): E03.9 - Hypothyroidism, unspecified (8) Coronary artery disease: Status: Chronic Qualifiers: Coronary Disease-Associated Artery/Lesion type: [place] artery [place] vs. transplanted heart: [place] heart Associated angina: without angina Qualified Code(s): I25.10 - Atherosclerotic heart disease of [place] coronary artery without angina pectoris Category: Medical Code(s): I25.10 - Atherosclerotic heart disease of [place] coronary artery without angina pectoris (9) Hypertension: Status: Chronic Qualifiers: Hypertension type: primary hypertension Qualified Code(s): I10 - Essential (primary) hypertension Category: Medical Code(s): I10 - Essential (primary) hypertension (10) Hyperlipidemia: Status: Chronic Qualifiers: Hyperlipidemia type: mixed hyperlipidemia Qualified Code(s): E78.2 - Mixed hyperlipidemia Category: Medical Code(s): E78.5 - Hyperlipidemia, unspecified Plan Delia Buchanan is a 62-year-old female with a medical history significant for COPD (2 L with exertion as needed), current tobacco smoker (4 cigarettes/day), HFrEF (LVEF 25 to 30% on 08/11/2023), A-flutter (on Eliquis, s/p unsuccessful cardioversion August 2023), CAD, hypertension, hyperlipidemia, hypothyroidism presented on 10/22/2023 with 1 week of yellow productive cough, shortness of breath, leg swelling which significantly worsened yesterday. Discussed case with ED attending and decision was made to admit patient for acute on chronic hypoxic, hypercapnic respiratory failure secondary to COPD, HFrEF exacerbation, and A-flutter with RVR. Showing some improvement in rate control. Still requiring 3 L oxygen. Lungs still quite wheezy on exam today. Will cardiology evaluate the patient in the morning. Continues to require inpatient management. Problems addressed as follows: #Atrial flutter with RVR ? Longstanding history of refractory atrial flutter, follows closely with cardiology. ? Refractory to cardioversion in August 2023, cardiology is planning for outpatient ablation. ? Presented with HR 143, minimal improvement with IV and p.o. metoprolol. ? Likely exacerbated by HFrEF and COPD exacerbation. ? CTAP unremarkable for pulmonary embolus ordered by ED. ? Orthostatic vitals performed today unremarkable making overdiuresis/dehydration unlikely contributor for tachycardia. Plan: ?Transition to metoprolol succinate 100 mg twice daily. -Rate control improved today ? Discontinued Home diltiazem given patient's HFrEF. ? Tolerating amiodarone drip with improvement in rate control. Drip will finish later today, transition to 40 mg oral twice daily. -Cardiology consult for the morning ? Continue home Eliquis 5 mg twice daily. She prefers this over Xarelto as she states she does not have a set dinnertime to take Xarelto. ? Goal K+ > 4, Mg > 2. Replete as appropriate. Potassium 3.9, magnesium 2.0. Kidney function at baseline with BUN 37, creatinine 1.1. Repeat CBC, CMP, mag nesium ordered for the morning. #Acute on chronic hypoxic respiratory failure #Acute hypercapnic respiratory failure ? Most consistent with acute COPD exacerbation and HFrEF exacerbation present on arrival. See separate problems. #HFrEF exacerbation, resolved #New onset HFrEF ? Patient has a longstanding history of HFpEF, however recent ALLA for A-flutter cardioversion in August 2023 reveals LVEF 25 to 30%. ? Patient reports increased leg swelling over the last week, adherent to home medications however she cannot recall the names of the medications. ? Initial BNP 3140. Lower extremity pitting edema resolved today after diuresis. ? Home Lasix dose: 60 mg daily. ED administered IV Lasix 40 mg. Plan: ? De-escalate to home Lasix regimen, scheduled Lasix 30 mg twice daily as patient is euvolemic today. ? Risk stratification for HFrEF: A1c, lipid panel, TSH normal. ? Given known history of CAD, current smoker, and new HFrEF, patient will b enefit from ischemic workup. Plan for cardiology consult on Wednesday. ? GDMT: Jardiance 10 mg. Will use short acting metoprolol tartrate given concomitant A-flutter w/ RVR, consider switching to succinate once tachycardia improves. Plan to start Entresto and MRA once A-flutter with RVR resolves BP permitting ? Follow-up limited ECHO to evaluate change in LVEF. ? Will need close follow-up with cardiology outpatient. Will also benefit from cardiac rehab. #Acute COPD exacerbation #? Community-acquired pneumonia ? Patient reported 1 week onset of increased cough and productive sputum with color change to yellow on admission. No sick contacts, reports adherence with inhalers. Uses Symbicort and albuterol at home. ? VBG shows new hypercapnia compared to past studies, 56.3. However, compensated with pH 7.33. Mild leukocytosis 12.9. ? Exam reveals bilateral decreased air movement, moderate wheezing, increased work of breathing but improved today. No fever, upper respiratory symptoms. ? CXR does not show acute findings. ? PSI risk class IV. Plan: ?Increase ipratropium/Xopenex breathing treatments every 4 hours ? Pulmicort scheduled. ? Prednisone 40 mg day 3/5. ? Ceftriaxone, azithromycin day 3/5. Ceftriaxone can be discontinued if low suspicion for CAP tomorrow. ? Follow-up respiratory panel. Obtain MRSA PCR if leukocytosis worsens, or patient becomes febrile. #Hypothyroidism ? continue home levothyroxine 50 mcg. ? Repeat TSH, T4 normal. #CAD, hyperlipidemia ? Aspirin, atorvastatin. CODE STATUS: Full code Diet: Cardiac DVT prophylaxis: Home Eliquis
[2023-10-24] MEDS: CEFTRIAXONE 1 GM 1 GM in 0.9 % SODIUM CHLORIDE 50 ML IV (11:24)
[2023-10-24] MEDS: AZITHROMYCIN 250MG TABLET 500 MG PO (11:24)
[2023-10-24] MEDS: AMIODARONE 200MG TABLET 400 MG PO (15:58)
[2023-10-24] MEDS: ATORVASTATIN 40MG TABLET 40 MG PO (20:15)
[2023-10-24] MEDS: METOPROLOL SUCCINATE XL 100MG TABLET 100 MG PO (20:15)
[2023-10-25] VITALS (17 sets, daily range): BP systolic 102–141; BP diastolic 76–103; PULSE 69–121; RESP 14–20; TEMP 36.4–37; O2SAT 91–97; BMI 21.3
[2023-10-25] MEDS: MORPHINE 4MG/ML SYRINGE 4 MG IV (01:48)
[2023-10-25] MEDS: BUDESONIDE 0.5MG/2ML NEB 0.5 MG IH ×2 (06:25→18:54)
[2023-10-25] MEDS: IPRATROPIUM BROMIDE 0.5 MG/2.5ML SOLUTION IH ×4 (06:25→22:11)
[2023-10-25] MEDS: LEVALBUTEROL 1.25MG/3ML NEB 1.25 MG IH ×4 (06:26→22:11)
[2023-10-25] MEDS: MORPHINE 2MG/ML SYRINGE 2 MG IV ×4 (06:28→18:41)
[2023-10-25] MEDS: LEVOTHYROXINE 50MCG (0.05MG) TAB 50 MCG PO (06:29)
[2023-10-25 07:01] LABS: Basophils % 0.1 % (0.1-2.0); Eosinophils % 0.1 % (0.1-12.0); Hematocrit 41.9 % (37.0-47.0); Hemoglobin 12.4 g/dL (12.2-16.2); Lymphocytes # 1.5 K/mm3 (0.7-4.5); Lymphocytes % 15.1 % (10-50); Mean Corpuscular HGB Conc 29.5 g/dL (31.8-35.4); Mean Corpuscular Hemoglobin 27.6 pg (27.0-31.2); Mean Corpuscular Volume 93.5 fl (81-99); Mean Platelet Volume 8.5 fl (7.4-10.4); Monocytes # 0.9 K/mm3 (0.1-1.0); Monocytes % 8.4 % (1.7-9.3); Neutrophils # 7.8 K/mm3 (1.8-7.8); Neutrophils % 76.4 % (37.0-80.0); Platelet Count 441 K/mm3 (142-424); Red Blood Count 4.48 M/mm3 (4.20-5.40); White Blood Count 10.2 K/mm3 (4.8-10.8)
[2023-10-25 07:06] LABS: Albumin Level 3.6 g/dl (3.5-5.0); Chloride 93 mmol/L (98-107); Potassium 3.9 mmoL/L (3.5-5.1); Sodium 137 mmol/L (136-145)
[2023-10-25 07:09] LABS: Alanine Aminotransferase 39 U/L (12-78); Albumin/Globulin Ratio 1.2 (1.1-1.8); Alkaline Phosphatase 88 U/L (38-126); Aspartate Amino Transferase 45 U/L (14-36); Bilirubin,Total 0.3 mg/dl (0.2-1.3); Blood Urea Nitrogen 43 mg/dl (7-17); Calcium 8.5 mg/dl (8.4-10.2); Creatinine Clearance Estimated 65 mL/min (50-200); Estimated Glomerular Filt Rate 57 ml/min (>60); GFR (African American) 68 ML/MIN (>60); Globulin 3.1 g/dL (1.3-3.2); Glucose 99 mg/dl (74-100); Total Protein,Serum 6.7 g/dl (6.3-8.2)
[2023-10-25 07:16] LABS: Anion Gap 11.9 mEq/L (5-15); Carbon Dioxide 36 mmol/L (22.0-30.0)
--- NOTE | 2023-10-25 07:39 | PC.NURSE ---
Patient oxygen saturation 85% on room air at rest.
[2023-10-25] MEDS: AMIODARONE 200MG TABLET 400 MG PO ×2 (08:32→20:11)
[2023-10-25] MEDS: LIDOCAINE 5% TRANSDERMAL PATCH 1 EACH TP (08:34)
[2023-10-25] MEDS: ASPIRIN EC 81MG TABLET 81 MG PO (08:37)
[2023-10-25] MEDS: CITALOPRAM 10MG TABLET 10 MG PO (08:37)
[2023-10-25] MEDS: APIXABAN 5MG TABLET 5 MG PO ×2 (08:37→20:11)
[2023-10-25] MEDS: AZITHROMYCIN 250MG TABLET 500 MG PO (08:37)
[2023-10-25] MEDS: FUROSEMIDE 20MG TABLET 30 MG PO (08:37)
[2023-10-25] MEDS: EMPAGLIFLOZIN 10MG TABLET 10 MG PO (08:37)
[2023-10-25] MEDS: METOPROLOL SUCCINATE XL 100MG TABLET 100 MG PO ×2 (08:38→20:11)
[2023-10-25] MEDS: predniSONE 20MG TAB 40 MG PO (08:38)
--- NOTE | 2023-10-25 08:47 | EXP.PHA.PN ---
Subjective *Date: 10/25/23 *Time: 08:47 Medical Exam Vital signs and Labs for Last 24 Hours: Vital Signs Temp Pulse Pulse Resp BP Pulse Ox O2 Del Method 10/25/23 07:00 Nasal Cannula 10/25/23 06:27 100 H 10/25/23 06:27 97 H 10/25/23 06:27 96 Nasal Cannula 10/25/23 06:00 89 14 140/102 H 97 Nasal Cannula 10/25/23 05:00 Nasal Cannula 10/25/23 04:00 93 L Nasal Cannula 10/25/23 04:00 97.9 F 105 H 16 141/103 H 95 Nasal Cannula 10/25/23 04:00 117 H 10/25/23 03:00 Nasal Cannula 10/25/23 02:00 105 H 16 138/98 H 94 L Nasal Cannula 10/25/23 01:28 Nasal Cannula 10/25/23 00:00 102 H 10/25/23 00:00 97.8 F 91 H 16 128/76 96 Nasal Cannula 10/25/23 00:00 95 Nasal Cannula 10/24/23 23:19 Nasal Cannula 10/24/23 22:20 77 10/24/23 22:10 75 10/24/23 22:00 93 H 22 116/84 96 Nasal Cannula 10/24/23 21:00 Nasal Cannula 10/24/23 20:00 94 H 10/24/23 20:00 93 L Nasal Cannula 10/24/23 20:00 98.4 F 94 H 18 130/84 93 L Nasal Cannula 10/24/23 19:12 90 L Room Air 10/24/23 19:12 Nasal Cannula 10/24/23 19:11 72 10/24/23 19:11 78 10/24/23 19:00 Nasal Cannula 10/24/23 18:00 89 20 134/94 H 93 L Nasal Cannula 10/24/23 17:00 Nasal Cannula 10/24/23 16:00 Nasal Cannula 10/24/23 16:00 97.5 F L 10/24/23 16:00 84 10/24/23 15:00 Nasal Cannula 10/24/23 14:18 74 10/24/23 14:18 77 10/24/23 14:18 94 L Nasal Cannula 10/24/23 14:00 77 20 120/85 92 L Nasal Cannula 10/24/23 13:00 Nasal Cannula 10/24/23 12:00 75 10/24/23 12:00 97.8 F 73 22 129/78 94 L Nasal Cannula 10/24/23 11:00 Nasal Cannula 10/24/23 10:00 71 20 113/78 96 Nasal Cannula 10/24/23 09:00 Nasal Cannula O2 Flow Rate FiO2 10/25/23 07:00 10/25/23 06:27 10/25/23 06:27 10/25/23 06:27 3 10/25/23 06:00 3 10/25/23 05:00 10/25/23 04:00 3 10/25/23 04:00 3 10/25/23 04:00 10/25/23 03:00 3 10/25/23 02:00 3 10/25/23 01:28 3 10/25/23 00:00 10/25/23 00:00 3 10/25/23 00:00 3 10/24/23 23:19 3 10/24/23 22:20 10/24/23 22:10 10/24/23 22:00 3 10/24/23 21:00 3 10/24/23 20:00 10/24/23 20:00 3 10/24/23 20:00 3 10/24/23 19:12 10/24/23 19:12 3 32 10/24/23 19:11 10/24/23 19:11 10/24/23 19:00 3 10/24/23 18:00 3 10/24/23 17:00 3 10/24/23 16:00 3 10/24/23 16:00 10/24/23 16:00 10/24/23 15:00 3 10/24/23 14:18 10/24/23 14:18 10/24/23 14:18 3 10/24/23 14:00 3 10/24/23 13:00 3 10/24/23 12:00 10/24/23 12:00 3 10/24/23 11:00 3 10/24/23 10:00 3 10/24/23 09:00 3 Intake and Output 10/24/23 10/25/23 10/25/23 23:59 07:59 15:59 Intake Total 969 / 2833 222 / 222 Output Total 2100 / 5700 1200 / 1200 Balance -1131 / -2867 -978 / -978 Intake: Intake, Oral Amount 342 / 2206 222 / 222 Intake, Total IV Amount 627 / 627 Amiodarone HCl 900 mg In 627 / 627 Dextrose 5 % in Water 500 ml @ 1 MG/MIN 34.533 mls/hr IV . Q15H1M [facility] Rx#:[id number] Output: Output, Urine Amount 2100 / 5700 1200 / 1200 Other: Number of Unmeasured Voids 0 Weight 69.1 kg Patient Weight 10/25/23 23:59 Weight 69.1 kg Laboratory Results - last 24 hr 10/25/23 05:46: WBC 10.2, RBC 4.48, Hgb 12.4, Hct 41.9, MCV 93.5, MCH 27.6, MCHC 29.5 L, RDW 17.0, Plt Count 441 H, MPV 8.5, Neut % (Auto) 76.4, Lymph % (Auto) 15.1, [place] % (Auto) 8.4, Eos % (Auto) 0.1, Baso % (Auto) 0.1, Neut # (Auto) 7.8, Lymph # (Auto) 1.5, [place] # (Auto) 0.9, Eos # (Auto) 0.0, Baso # (Auto) 0.0, Sodium 137, Potassium 3.9, Chloride 93 L, Carbon Dioxide 36 H, Anion Gap 11.9, BUN 43 H, Creatinine 1.00, Estimated Creat Clear 65, Estimated GFR 57 L, Est GFR ( Amer) 68, Glucose 99, Calcium 8.5, Magnesium 2.0, Total Bilirubin 0.3, AST 45 H D, ALT 39, Alkaline Phosphatase 88, Total Protein 6.7, Albumin 3.6, Globulin 3.1, Albumin/Globulin Ratio 1.2 I & O for Labs for Last 24 Hours: Intake & Output 10/22/23 10/23/23 10/24/23 10/25/23 23:59 23:59 23:59 23:59 Intake Total 240 / 240 2441.482 / 2441.482 2611 / 2833 222 / 222 Output Total 400 / 400 1200 / 1200 5700 / 5700 1200 / 1200 Balance -160 / -160 1241.482 / 1241.482 -3089 / -2867 -978 / -978 Weight 69.4 kg 69.4 kg 69.116 kg 69.1 kg Microbiology Reports for the Last 24 Hours: Microbiology 10/23/23 13:18 Sputum - Expectorated Sputum Gram Stain - Final 10/23/23 13:18 Sputum - Expectorated Sputum Sputum Culture - Preliminary 10/22/23 12:27 Blood Blood Culture - Preliminary NO GROWTH AFTER 48 HOURS 10/22/23 11:30 Blood Blood Culture - Preliminary NO GROWTH AFTER 48 HOURS The patient's infection will respond to the chosen ABx?: Yes (blood cx = no growth, sputum pending, afebrile over 24 hr, white count 10.2) Is the patient receiving the right drug, dose, and route?: Yes Could a more targeted ABx be ordered?: No How long ABx needed (days)?: 5
[2023-10-25] MEDS: FUROSEMIDE 40MG/4ML VIAL 40 MG IV ×2 (11:38→18:38)
[2023-10-25] MEDS: ONDANSETRON 4MG/2ML VIAL 4 MG IV (11:42)
--- NOTE | 2023-10-25 12:27 | EXP.DC.SUM ---
General Admission date:: 10/22/23 Discharge date: 10/25/23 HPI HPI HPI: Delia Buchanan is a 62-year-old female with a medical history significant for COPD (2 L with exertion as needed), current tobacco smoker (4 cigarettes/day), HFrEF (LVEF 25 to 30% on 08/11/2023), A-flutter (on Xarelto, s/p unsuccessful cardioversion August 2023), CAD, hypertension, hyperlipidemia, hypothyroidism presents with 1 week of yellow productive cough, shortness of breath, leg swelling which significantly worsened yesterday. Patient states she began to experience significant dyspnea with palpitations on exertion starting around 4 PM yesterday. She also notes central chest pain with cough and tightness over the last few days without radiation to left shoulder, nausea/vomiting, diaphoresis. She denies fevers, sick contacts, abdominal pain, diarrhea/constipation, urinary symptoms. She states she has been adherent with all her medications. Patient recently had a cardioversion for a flutter in August 2023, however patient states she went back into a flutter within a day. Cardiology is planning for an ablation outpatient. In the ED, HR up to 140 and initial BP 146/105 which is improved to 102/65. She was initially placed on BiPAP but weaned to 2 L nasal cannula with appropriate saturations. Labs significant for WBC 12.9, VBG pCO2 56.3, pH 7.33, proBNP 3140, normal troponin X2. EKG shows a flutter without acute ST changes. CXR unremarkable for acute changes. Pending chest CTA to rule out pulmonary embolus at this time. Patient was given DuoNeb, IV Lasix 40 mg, IV morphine 4 mg, Zofran. Patient will be admitted for further evaluation management to the hospital medicine service for acute hypoxic, hypercapnic respiratory failure secondary to COPD and HFrEF exacerbation, and a flutter. Exam Data for Last 24 hours Vital signs and Labs for Last 24 Hours: Temp Pulse Resp BP Pulse Ox O2 Del Method O2 Flow Rate 98.6 F 100 H 20 129/99 H 93 L Nasal Cannula 4 10/25/23 11:59 10/25/23 10:00 10/25/23 10:00 10/25/23 10:00 10/25/23 10:00 10/25/23 10:00 10/25/23 10:00 FiO2 32 09/15/24 19:12 Laboratory Results - last 24 hr 10/25/23 05:46: WBC 10.2, RBC 4.48, Hgb 12.4, Hct 41.9, MCV 93.5, MCH 27.6, MCHC 29.5 L, RDW 17.0, Plt Count 441 H, MPV 8.5, Neut % (Auto) 76.4, Lymph % (Auto) 15.1, [place] % (Auto) 8.4, Eos % (Auto) 0.1, Baso % (Auto) 0.1, Neut # (Auto) 7.8, Lymph # (Auto) 1.5, [place] # (Auto) 0.9, Eos # (Auto) 0.0, Baso # (Auto) 0.0, Sodium 137, Potassium 3.9, Chloride 93 L, Carbon Dioxide 36 H, Anion Gap 11.9, BUN 43 H, Creatinine 1.00, Estimated Creat Clear 65, Estimated GFR 57 L, Est GFR ( Amer) 68, Glucose 99, Calcium 8.5, Magnesium 2.0, Total Bilirubin 0.3, AST 45 H D, ALT 39, Alkaline Phosphatase 88, Total Protein 6.7, Albumin 3.6, Globulin 3.1, Albumin/Globulin Ratio 1.2 I & O for Last 24 hours: Intake & Output 10/22/23 10/23/23 10/24/23 10/25/23 23:59 23:59 23:59 23:59 Intake Total 240 / 240 2441.482 / 2441.482 2611 / 2833 462 / 462 Output Total 400 / 400 1200 / 1200 5700 / 5700 1400 / 1400 Balance -160 / -160 1241.482 / 1241.482 -3089 / -2867 -938 / -938 Weight 69.4 kg 69.4 kg 69.116 kg 69.1 kg Microbiology Reports for the Last 24 Hours: Microbiology 10/23/23 13:18 Sputum - Expectorated Sputum Gram Stain - Final 10/23/23 13:18 Sputum - Expectorated Sputum Sputum Culture - Preliminary 10/22/23 12:27 Blood Blood Culture - Preliminary NO GROWTH AFTER 48 HOURS 10/22/23 11:30 Blood Blood Culture - Preliminary NO GROWTH AFTER 48 HOURS Results Data Completed and Pending Labs on day of discharge: Labs from last 24 hours 10/25/23 05:46 WBC 10.2 RBC 4.48 Hgb 12.4 Hct 41.9 MCV 93.5 MCH 27.6 MCHC 29.5 L RDW 17.0 Plt Count 441 H MPV 8.5 Neut % (Auto) 76.4 Lymph % (Auto) 15.1 [place] % (Auto) 8.4 Eos % (Auto) 0.1 Baso % (Auto) 0.1 Neut # (Auto) 7.8 Lymph # (Auto) 1.5 [place] # (Auto) 0.9 Eos # (Auto) 0.0 Baso # (Auto) 0.0 Sodium 137 Potassium 3.9 Chloride 93 L Carbon Dioxide 36 H Anion Gap 11.9 BUN 43 H Creatinine 1.00 Estimated Creat Clear 65 Estimated GFR 57 L Est GFR ( Amer) 68 Glucose 99 Calcium 8.5 Magnesium 2.0 Total Bilirubin 0.3 AST 45 H D ALT 39 Alkaline Phosphatase 88 Total Protein 6.7 Albumin 3.6 Globulin 3.1 Albumin/Globulin Ratio 1.2 Preliminary micro results at discharge 10/23/23 13:18 Sputum Culture - Preliminary Sputum - Expectorated Sputum 10/22/23 12:27 Blood Culture - Preliminary Blood NO GROWTH AFTER 48 HOURS 10/22/23 11:30 Blood Culture - Preliminary Blood NO GROWTH AFTER 48 HOURS DS: Diagnosis Discharge Diagnosis (1) CHF exacerbation: Status: Acute Code(s): I50.9 - Heart failure, unspecified Qualifiers: Heart failure type: systolic Qualified Code(s): I50.23 - Acute on chronic systolic (congestive) heart failure (2) PNA (pneumonia): Status: Acute Code(s): J18.9 - Pneumonia, unspecified organism Qualifiers: Laterality: unspecified laterality Lung location: unspecified part of lung Pneumonia type: due to unspecified organism Qualified Code(s): J18.9 - Pneumonia, unspecified organism (3) Atrial flutter with rapid ventricular response: Status: Acute Code(s): I48.92 - Unspecified atrial flutter (4) COPD exacerbation: Status: Acute Code(s): J44.1 - Chronic obstructive pulmonary disease with (acute) exacerbation (5) Smoking greater than 30 pack years: Status: Acute Code(s): F17.210 - Nicotine dependence, cigarettes, uncomplicated (6) Dyspnea on exertion: Status: Acute Code(s): R06.09 - Other forms of dyspnea (7) Hypothyroidism: Status: Chronic Code(s): E03.9 - Hypothyroidism, unspecified Qualifiers: Hypothyroidism type: unspecified Qualified Code(s): E03.9 - Hypothyroidism, unspecified (8) Coronary artery disease: Status: Chronic Code(s): I25.10 - Atherosclerotic heart disease of [place] coronary artery without angina pectoris Qualifiers: Coronary Disease-Associated Artery/Lesion type: [place] artery [place] vs. transplanted heart: [place] heart Associated angina: without angina Qualified Code(s): I25.10 - Atherosclerotic heart disease of [place] coronary artery without angina pectoris (9) Hypertension: Status: Chronic Code(s): I10 - Essential (primary) hypertension Qualifiers: Hypertension type: primary hypertension Qualified Code(s): I10 - Essential (primary) hypertension (10) Hyperlipidemia: Status: Chronic Code(s): E78.5 - Hyperlipidemia, unspecified Qualifiers: Hyperlipidemia type: mixed hyperlipidemia Qualified Code(s): E78.2 - Mixed hyperlipidemia Meds Home Medications and Allergies Home Medications ?Medication ?Instructions ?Recorded ?Confirmed ?Type albuterol sulfate 90 mcg/actuation 1 puff inhalation Q4HP PRN 01/10/21 10/22/23 History aerosol inhaler Shortness Of Breath budesonide-formoterol HFA 160 2 puffs inhalation BID 01/10/21 10/22/23 History mcg-4.5 mcg/actuation aerosol inhaler pantoprazole 40 mg tablet,delayed 40 mg PO DAILY GERD #90 tabs 03/04/21 10/22/23 Rx release citalopram 10 mg tablet 10 mg PO DAILY 03/01/22 10/22/23 History diclofenac sodium 1 % topical gel 1 ea topical QIDP PRN Mild Pain 03/01/22 10/22/23 History (Scale Score 1-4) levothyroxine 50 mcg tablet 50 mcg PO DAILY 03/01/22 10/22/23 History aspirin 81 mg tablet,delayed 81 mg PO DAILY #100 tabs 01/28/23 10/22/23 Rx release atorvastatin 40 mg tablet 40 mg PO HS Cholesterol #30 tabs 01/28/23 10/22/23 Rx famotidine 40 mg tablet 40 mg PO BID acid reflux #60 tabs 01/28/23 10/22/23 Rx diclofenac sodium 75 mg 75 mg PO BID 04/13/23 10/23/23 History tablet,delayed release lidocaine 5 % topical patch 1 patch topical DAILY 04/13/23 10/22/23 History (Lidoderm) empagliflozin 10 mg tablet 10 mg PO DAILY 07/19/23 10/22/23 History (Jardiance) furosemide 20 mg tablet 60 mg (3 x 20 mg) PO DAILY 30 days 07/27/23 10/22/23 Rx #90 tabs nicotine 14 mg/24 hr daily 1 patch transdermal DAILY #28 ea 07/27/23 10/22/23 Rx transdermal patch rivaroxaban 20 mg tablet (Xarelto) 20 mg PO QPMWITHMEAL 10/23/23 10/23/23 History azithromycin 250 mg tablet 500 mg (2 x 250 mg) PO DAILY 2 10/25/23 Rx days #4 tabs prednisone 20 mg tablet 40 mg (2 x 20 mg) PO DAILY 2 days 10/25/23 Rx #4 tabs New Prescriptions to Start Prescriptions: Salazar Ochoa prednisone Salazar Arreola Allergies Allergy/AdvReac Type Severity Reaction Status Date / Time codeine Allergy Mild Nausea Verified 08/11/23 07:57 penicillin G [PENICILLIN G] Allergy Mild I-RASH/NV Verified 08/11/23 07:57 acetaminophen [ACETAMINOPHEN] AdvReac Mild NOT Verified 08/11/23 07:57 ALLERGIC. NEED TO WATCH DUE TO LIVER Discharge Plan Disposition Patient Disposition: Home, Self-Care Condition: Fair Follow up Plan Follow up with: Provider,MD Malorie [Primary Care Provider] - Enter time for follow up Irvin Ruano MD [Staff Physician] - Enter time for follow up Prescriptions/Medication Reconciliation: New azithromycin 250 mg Tablet 500 mg PO DAILY 2 Days Qty: 4 0RF prednisone 20 mg Tablet 40 mg PO DAILY 2 Days Qty: 4 0RF Continued nicotine 14 mg/24 hr patch 24 hour 1 patch transdermal DAILY Qty: 28 2RF furosemide 20 mg tablet 60 mg PO DAILY 30 Days Qty: 90 5RF pantoprazole 40 mg tablet,delayed release (DR/EC) 40 mg PO DAILY Qty: 90 3RF diclofenac sodium 75 mg tablet,delayed release (DR/EC) 75 mg PO BID lidocaine [Lidoderm] 5 % adhesive patch,medicated 1 patch topical DAILY aspirin 81 mg tablet,delayed release (DR/EC) 81 mg PO DAILY Qty: 100 3RF atorvastatin 40 mg tablet 40 mg PO HS Qty: 30 3RF famotidine 40 mg tablet 40 mg PO BID Qty: 60 5RF albuterol sulfate 8.5 GM HFA aerosol inhaler 1 puff inhalation Q4HP PRN (Reason: Shortness Of Breath) budesonide-formoterol 10.2 GM HFA aerosol inhaler 2 puffs inhalation BID Xarelto 20 mg tablet 20 mg PO QPMWITHMEAL Rx Instructions: must administer with evening meal citalopram 10 mg tablet 10 mg PO DAILY diclofenac sodium 1 % gel 1 ea TOPICAL QIDP PRN (Reason: Mild Pain (Scale Score 1-4)) levothyroxine 50 mcg tablet 50 mcg PO DAILY Jardiance 10 mg tablet 10 mg PO DAILY Discontinued diltiazem HCl 240 mg capsule,extended release 24 hr 240 mg PO BID Qty: 60 5RF metoprolol succinate [Toprol XL] 25 mg tablet extended release 24 hr 25 mg PO DAILY Qty: 30 5RF Problem Reconciliation Problems Reviewed?: Yes Patient Discharge Instructions ACTIVITY: Continue current activity DIET: continue same diet Print Language: Syriac Providers Primary Care Provider: Provider,Referral Admit Provider: Salazar Arreola Attending Provider: Salazar Arreola
[2023-10-25] MEDS: CEFTRIAXONE 1 GM 1 GM in 0.9 % SODIUM CHLORIDE 50 ML IV (13:20)
[2023-10-25] MEDS: AMIODARONE HCL 150 MG in DEXTROSE 5 % IN WATER 100 ML 618 MG IV (13:50)
[2023-10-25] MEDS: AMIODARONE HCL 900 MG in DEXTROSE 5 % IN WATER 500 ML 34.53 MG IV (14:08)
--- NOTE | 2023-10-25 15:19 | P.CONCA_ITS ---
History of Present Illness History of Present Illness Consult date: 10/25/23 Requesting physician: Salazar Arreola Consult reason: chest pain and shortness of breath Chief complaint: SOA History of present illness: This is a 62-year-old white female who presented to the emergency department with complaints of shortness of breath and chest pain. The patient has a past medical history of HFrEF, hypertension, hyperlipidemia, normal coronary arteries and paroxysmal atrial fibrillation. She underwent successful ALLA and cardioversion August 2023. She was converted back to sinus rhythm. At that time the patient was found to have a reduced ejection fraction and was supposed to be reinitiated on guideline directed medical therapy at her follow-up but the patient never followed up in cardiology clinic following her ALLA and cardioversion. She was also referred to EP at her last appointment but she has not been seen by EP as of yet. The patient presented to the emergency department complaints of shortness of breath and chest pain. She states that they started approximately 1 week prior to her presentation. She states that she has an associated cough with her shortness of breath with yellow productive sputum. She states that her shortness of breath got severe. She had pressure and tightness in her chest for a few days prior to her admission with radiation to her left shoulder. It was associated with shortness of breath, nausea, vomiting and diaphoresis. The patient states that she was also having lower extremity edema associated with her shortness of breath. She states that she is just not felt well. The patient reports that since being in the hospital her shortness of breath has not improved. She states that her heart rate has improved but not the chest pain or shortness of breath. She denies any fever or chills. [facility] Disclaimer: The information contained in this section may have been updated after the patient was seen, as this information can be updated by other users. Medical History (Updated 10/25/23 @ 15:28 by Dea Hargrove APRN) HFrEF (heart failure with reduced ejection fraction) Atrial flutter with rapid ventricular response Elevated liver enzymes Smoking greater than 30 pack years Dyspnea on exertion Pulmonary emphysema Dyspnea Afib Sinus bradycardia Coronary artery disease Chronic, continuous use of opioids Right rotator cuff tear Hypothyroidism Atrial fibrillation/flutter Pulmonary hypertension Hepatitis C Tobacco dependence (HFpEF) heart failure with preserved ejection fraction Hyperlipidemia Hypertension COPD (chronic obstructive pulmonary disease) Surgical History History of hysterectomy History of surgery on right wrist History of mandibular surgery History of left heart catheterization History of cholecystectomy S/P rotator cuff repair H/O splenectomy History of cardioversion Family History Mother Stroke Father Coronary artery disease Social History Smoking Status: Current some day smoker tobacco type: cigarettes packs per day: 1 years smoked: 40 second hand exposure: Yes alcohol intake: never substance use type: denies use current occupational status: unemployed and disabled Travel in the last 8 weeks: Inside the [place] household members: none housing: house lives independently: Yes marital status: single number of children: 3 current occupation: Disabled caffeine: Yes Review of Systems Review of Systems Review of systems:: pertinent systems reviewed and negative unless documented below Constitutional Constitutional: Reports system reviewed and no additional complaints, except as documented, Reports fatigue, Reports lethargy and Reports weakness Eyes Eyes: Reports system reviewed and no additional complaints, except as documented ENT Ears, Nose, Mouth, and Throat: Reports system reviewed and no additional complaints, except as documented *Cardiovascular Cardiovascular: Reports system reviewed and no additional complaints, except as documented, Reports chest pain, Reports chest pain at rest, Reports chest pain with activity, Reports diaphoresis, Reports dyspnea, Reports dyspnea on exertion, Reports leg edema, Reports orthopnea, Reports palpitations, Reports paroxysmal nocturnal dyspnea, Reports radiating jaw, neck or arm pain and Reports rapid heart rate *Respiratory Respiratory: Reports system reviewed and no additional complaints, except as documented, Reports dyspnea and Reports dyspnea on exertion *Gastrointestinal Gastrointestinal: Reports system reviewed and no additional complaints, except as documented, Reports nausea and Reports vomiting *Genitourinary Genitourinary: Reports system reviewed and no additional complaints, except as documented *Musculoskeletal Musculoskeletal: Reports system reviewed and no additional complaints, except as documented Integumentary/Breasts Skin/Breast: Reports system reviewed and no additional complaints, except as documented *Neurologic Neurologic: Reports system reviewed and no additional complaints, except as documented and Reports weakness Psychiatric Psychiatric: Reports system reviewed and no additional complaints, except as documented Endocrine Endocrine: Reports system reviewed and no additional complaints, except as documented, Reports fatigue and Reports palpitations Hematologic/Lymphatic Hematologic/Lymphatic: Reports system reviewed and no additional complaints, except as documented Allergic/Immunologic Allergic/Immunologic: Reports system reviewed and no additional complaints, except as documented Exam Data for Last 24 hours Vital signs and Labs for Last 24 Hours: Temp Pulse Resp BP Pulse Ox O2 Del Method O2 Flow Rate 98.6 F 121 H 20 129/99 H 93 L Nasal Cannula 4 10/25/23 11:59 10/25/23 12:00 10/25/23 10:00 10/25/23 10:00 10/25/23 10:00 10/25/23 10:00 10/25/23 10:00 FiO2 32 10/24/23 19:12 Laboratory Results - last 24 hr 10/25/23 05:46: WBC 10.2, RBC 4.48, Hgb 12.4, Hct 41.9, MCV 93.5, MCH 27.6, MCHC 29.5 L, RDW 17.0, Plt Count 441 H, MPV 8.5, Neut % (Auto) 76.4, Lymph % (Auto) 15.1, Collin % (Auto) 8.4, Eos % (Auto) 0.1, Baso % (Auto) 0.1, Neut # (Auto) 7.8, Lymph # (Auto) 1.5, Collin # (Auto) 0.9, Eos # (Auto) 0.0, Baso # (Auto) 0.0, Sodium 137, Potassium 3.9, Chloride 93 L, Carbon Dioxide 36 H, Anion Gap 11.9, BUN 43 H, Creatinine 1.00, Estimated Creat Clear 65, Estimated GFR 57 L, Est GFR ( Amer) 68, Glucose 99, Calcium 8.5, Magnesium 2.0, Total Bilirubin 0.3, AST 45 H D, ALT 39, Alkaline Phosphatase 88, Total Protein 6.7, Albumin 3.6, Globulin 3.1, Albumin/Globulin Ratio 1.2 I & O for Last 24 hours: Intake & Output 10/22/23 10/23/23 10/24/23 10/25/23 23:59 23:59 23:59 23:59 Intake Total 240 / 240 2441.482 / 2441.482 2611 / 2833 462 / 462 Output Total 400 / 400 1200 / 1200 5700 / 5700 1400 / 1400 Balance -160 / -160 1241.482 / 1241.482 -3089 / -2867 -938 / -938 Weight 153 lb 153 lb 0.013 oz 152 lb 6 oz 152 lb 5.431 oz Microbiology Reports for the Last 24 Hours: Microbiology 10/23/23 13:18 Sputum - Expectorated Sputum Gram Stain - Final 10/23/23 13:18 Sputum - Expectorated Sputum Sputum Culture - Preliminary 10/22/23 12:27 Blood Blood Culture - Preliminary NO GROWTH AFTER 48 HOURS 10/22/23 11:30 Blood Blood Culture - Preliminary NO GROWTH AFTER 48 HOURS Constitutional Constitutional: no acute distress and average body habitus *Routine HEENT Exam Head: Present normocephalic and atraumatic ENT: Present mucous membranes moist *Routine Neck Exam Neck: Present supple, full ROM and normal carotid upstroke; Absent JVD, carotid bruit or lymphadenopathy *Routine Respiratory Exam Respiratory: Present CTA bilaterally, normal respiratory effort, able to speak in complete sentences and symmetric chest movement *Routine Cardiovascular Exam Cardiovascular: Present Normal S1, Normal S2, tachycardia and irregular rhythm; Absent murmur or gallop *Routine Abdominal Exam Abdominal: Present soft and normoactive bowel sounds; Absent tenderness, distended or organomegaly *Routine Extremities Exam Extremities: Present full ROM, pulses intact and normal capillary refill; Absent cyanosis, clubbing or edema *Routine Skin Exam Skin: Present intact and warm; Absent erythema *Routine Neurological Exam Neurological: Present alert, oriented X3 and CN II-XII intact; Absent sensory deficit or motor deficit Routine Psychiatric Exam Psychiatric: Present normal affect Meds Home Medications and Allergies Home Medications ?Medication ?Instructions ?Recorded ?Confirmed ?Type albuterol sulfate 90 mcg/actuation 1 puff inhalation Q4HP PRN 01/10/21 10/22/23 History aerosol inhaler Shortness Of Breath budesonide-formoterol HFA 160 2 puffs inhalation BID 01/10/21 10/22/23 History mcg-4.5 mcg/actuation aerosol inhaler pantoprazole 40 mg tablet,delayed 40 mg PO DAILY GERD #90 tabs 03/04/21 10/22/23 Rx release citalopram 10 mg tablet 10 mg PO DAILY 03/01/22 10/22/23 History diclofenac sodium 1 % topical gel 1 ea topical QIDP PRN Mild Pain 03/01/22 10/22/23 History (Scale Score 1-4) levothyroxine 50 mcg tablet 50 mcg PO DAILY 03/01/22 10/22/23 History aspirin 81 mg tablet,delayed 81 mg PO DAILY #100 tabs 01/28/23 10/22/23 Rx release atorvastatin 40 mg tablet 40 mg PO HS Cholesterol #30 tabs 01/28/23 10/22/23 Rx famotidine 40 mg tablet 40 mg PO BID acid reflux #60 tabs 01/28/23 10/22/23 Rx diclofenac sodium 75 mg 75 mg PO BID 04/13/23 10/23/23 History tablet,delayed release lidocaine 5 % topical patch 1 patch topical DAILY 04/13/23 10/22/23 History (Lidoderm) empagliflozin 10 mg tablet 10 mg PO DAILY 07/19/23 10/22/23 History (Jardiance) furosemide 20 mg tablet 60 mg (3 x 20 mg) PO DAILY 30 days 07/27/23 10/22/23 Rx #90 tabs nicotine 14 mg/24 hr daily 1 patch transdermal DAILY #28 ea 07/27/23 10/22/23 Rx transdermal patch rivaroxaban 20 mg tablet (Xarelto) 20 mg PO QPMWITHMEAL 10/23/23 10/23/23 History azithromycin 250 mg tablet 500 mg (2 x 250 mg) PO DAILY 2 10/25/23 Rx days #4 tabs cefdinir 300 mg capsule 300 mg PO BID 3 days #6 caps 10/25/23 Rx prednisone 20 mg tablet 40 mg (2 x 20 mg) PO DAILY 2 days 10/25/23 Rx #4 tabs New Prescriptions to Start Prescriptions: Salazar Ochoa cefdinir Salazar Arreola prednisone Salazar Arreola Allergies Allergy/AdvReac Type Severity Reaction Status Date / Time codeine Allergy Mild Nausea Verified 08/11/23 07:57 penicillin G [PENICILLIN G] Allergy Mild I-RASH/NV Verified 08/11/23 07:57 acetaminophen [ACETAMINOPHEN] AdvReac Mild NOT Verified 08/11/23 07:57 ALLERGIC. NEED TO WATCH DUE TO LIVER Assessment and Plan *Assessment and plan (1) HFrEF (heart failure with reduced ejection fraction): Status: Acute Category: Medical Code(s): I50.20 - Unspecified systolic (congestive) heart failure (2) Dyspnea: Status: Acute Qualifiers: Dyspnea type: shortness of breath Qualified Code(s): R06.02 - Shortness of breath Category: Medical Code(s): R06.00 - Dyspnea, unspecified (3) Atrial flutter with rapid ventricular response: Status: Acute Category: Medical Code(s): I48.92 - Unspecified atrial flutter (4) COPD exacerbation: Status: Acute Category: Medical Code(s): J44.1 - Chronic obstructive pulmonary disease with (acute) exacerbation (5) Hyperlipidemia: Status: Chronic Qualifiers: Hyperlipidemia type: mixed hyperlipidemia Qualified Code(s): E78.2 - Mixed hyperlipidemia Category: Medical Code(s): E78.5 - Hyperlipidemia, unspecified (6) Hypertension: Status: Chronic Qualifiers: Hypertension type: primary hypertension Qualified Code(s): I10 - Essential (primary) hypertension Category: Medical Code(s): I10 - Essential (primary) hypertension Plan Plan: 1. The patient was admitted to the hospital for atrial fibrillation/flutter with RVR. The patient also has acute HFrEF. The patient was loaded with amnio and then started on oral amiodarone for suppression of her atrial fibrillation. Today she remains in atrial flutter with a rate greater than 100. We can continue the oral amiodarone at this time but we will need to reload the patient with IV amiodarone and start her on an amiodarone drip as well as continue the oral amiodarone to try to get her under better rate control. 2. The patient did undergo ALLA and cardioversion in August 2023. She was suc cessfully cardioverted to sinus rhythm but her ejection fraction was noted to be 25 to 30%. The patient was supposed to follow-up in cardiology clinic to be restarted on guideline directed medical therapy and to have a LifeVest ordered but the patient failed to follow-up after her ALLA and cardioversion. She has subsequently went back into atrial fibrillation/flutter with RVR. She most likely has high output heart failure from her atrial fibrillation/flutter with RVR. She needs better rate control to keep her out of heart failure. 3. HFrEF is present. BNP was 3140. Her ejection fraction is around 15 to 20%. The patient has severe LV dysfunction. She is an increased risk for sudden cardiac due to her severe LV dysfunction. Will get the patient set up for a LifeVest prior to discharge home. The patient is not a candidate for an AICD yet because she keeps going into atrial fibrillation/flutter with RVR causing her to go and heart failure. 4. Continue metoprolol for HFrEF and better heart rate control. 5. Will put her on Lasix 40 mg IV twice daily for diuresis due to her HFrEF. 6. Start spironolactone 25 mg p.o. daily for HFrEF. 7. Start Entresto 24/26 mg p.o. twice daily for HFrEF. 8. Continue Jardiance for HFrEF. 9. The patient is on long-term anticoagulation with Eliquis. Will continue her Eliquis at this time. 10. Her blood pressure is well-controlled. 11. Her LDL goal is less than 100. Her LDL is 75. She is on a statin. 12. The patient has a history of normal coronary arteries. Her troponins were negative. No plans for invasive left cardiac catheterization at this time. 13. Repeat BMP in the morning. 14. Further recommendations were made pending the patient's response to treatment. Thank you for the opportunity to help dissipate in the care of this patient. All recommendations and orders are per Dr. Ruano.
[2023-10-25] MEDS: SPIRONOLACTONE 25MG TABLET 25 MG PO (16:04)
--- NOTE | 2023-10-25 17:53 | CA_ITS ---
APPROVED REPORT EXAM: Limited 2D Echocardiogram Lining Cutter: Ashia Hernández CRT Ht: 5 ft 10 in Wt: 152lbs BSA: 1.86 BP: 126/81 mmHg Indications: CHF, AFLUTTER, CAD, Cardioversion, HTN, HLD, Smoker ALLA EF 25-30% 08/11/23 M-Mode Dimensions RVDd 2.22 cm (0.9-2.6) LVDd 6.34 cm (3.5-5.7) LVDs 5.62 cm (3.5-5.7) IVSd 1.75 cm (0.6-1.1) PWd 0.79 cm (0.6-1.1) EF (Teich) 24.10% FS 11.40% EDV (Teich) 204.10 mL ESV (Teich) 154.90 mL Other Information Study Quality: Fair Conclusion This is a limited TTE to evaluate for LVEF in the setting of atrial flutter. Limited windows were obtained. The left ventricle is mildly dilated. There is increased LV wall thickness. Severe global hypokinesis is present. LVEF is 20%. The right ventricle is mildly dilated with mildly reduced RV function. Severe biatrial dilation is present. Electronically signed by : Lise Ruano MD 10/25/2023 15:40:01
--- NOTE | 2023-10-25 18:50 | PC.NURSE ---
pt has remained on 3L NC t/o most of shift, expiratory wheezing auscultated in bilateral upper lobes, has complained of back pain 3X this shift and was treated per APR, ambulating to BR, amio gtt started at 1408, [facility], Lise wants PO amio given along with amio gtt
[2023-10-25] MEDS: SACUBITRIL/VALSARTAN 24-26MG TABLET 1 EACH PO (20:10)
[2023-10-25] MEDS: ATORVASTATIN 40MG TABLET 40 MG PO (20:11)
--- NOTE | 2023-10-25 20:25 | P.PN_ITS ---
Subjective *Date: 10/25/23 *Time: 22:51 Interval history: Patient on baseline oxygen of 2 to 3 L. Has diuresed well, -3 L since admission. Improvement on exam with decreased crackles. Tolerating p.o. intake. Still having a flutter, rate improved with control in the 90s to 100s. No chest pain. Medical Exam Vital signs and Labs for Last 24 Hours: Vital Signs Temp Pulse Pulse Resp BP Pulse Ox O2 Del Method 10/25/23 20:00 93 H 20 129/91 H 96 Nasal Cannula 10/25/23 20:00 97.6 F 10/25/23 18:55 93 H 10/25/23 18:55 91 H 10/25/23 18:55 95 Nasal Cannula 10/25/23 18:47 Nasal Cannula 10/25/23 18:00 90 20 121/93 H 94 L Nasal Cannula 10/25/23 17:15 Nasal Cannula 10/25/23 16:00 80 10/25/23 16:00 69 20 109/84 L 97 Nasal Cannula 10/25/23 16:00 69 97 Nasal Cannula 10/25/23 15:00 Nasal Cannula 10/25/23 14:00 90 20 102/76 L 91 L Nasal Cannula 10/25/23 13:00 Nasal Cannula 10/25/23 12:00 121 H 10/25/23 11:59 98.6 F 10/25/23 11:00 Nasal Cannula 10/25/23 10:00 100 H 20 129/99 H 93 L Nasal Cannula 10/25/23 09:00 Nasal Cannula 10/25/23 08:00 100 H 10/25/23 08:00 98 H 18 131/98 H 93 L Nasal Cannula 10/25/23 08:00 98.1 F 10/25/23 07:45 98 H 93 L Nasal Cannula 10/25/23 07:00 Nasal Cannula 10/25/23 06:27 100 H 10/25/23 06:27 97 H 10/25/23 06:27 96 Nasal Cannula 10/25/23 06:00 89 14 140/102 H 97 Nasal Cannula 10/25/23 05:00 Nasal Cannula 10/25/23 04:00 93 L Nasal Cannula 10/25/23 04:00 97.9 F 105 H 16 141/103 H 95 Nasal Cannula 10/25/23 04:00 117 H 10/25/23 03:00 Nasal Cannula 10/25/23 02:00 105 H 16 138/98 H 94 L Nasal Cannula 10/25/23 01:28 Nasal Cannula 10/25/23 00:00 102 H 10/25/23 00:00 97.8 F 91 H 16 128/76 96 Nasal Cannula 10/25/23 00:00 95 Nasal Cannula 10/24/23 23:19 Nasal Cannula 10/24/23 22:20 77 10/24/23 22:10 75 10/24/23 22:00 93 H 22 116/84 96 Nasal Cannula 10/24/23 21:00 Nasal Cannula O2 Flow Rate 10/25/23 20:00 2 10/25/23 20:00 10/25/23 18:55 10/25/23 18:55 10/25/23 18:55 3 10/25/23 18:47 3 10/25/23 18:00 3 10/25/23 17:15 3 10/25/23 16:00 10/25/23 16:00 3 10/25/23 16:00 2 10/25/23 15:00 3 10/25/23 14:00 3 10/25/23 13:00 3 10/25/23 12:00 10/25/23 11:59 10/25/23 11:00 3 10/25/23 10:00 4 10/25/23 09:00 3 10/25/23 08:00 10/25/23 08:00 2 10/25/23 08:00 10/25/23 07:45 2 10/25/23 07:00 10/25/23 06:27 10/25/23 06:27 10/25/23 06:27 3 10/25/23 06:00 3 10/25/23 05:00 10/25/23 04:00 3 10/25/23 04:00 3 10/25/23 04:00 10/25/23 03:00 3 10/25/23 02:00 3 10/25/23 01:28 3 10/25/23 00:00 10/25/23 00:00 3 10/25/23 00:00 3 10/24/23 23:19 3 10/24/23 22:20 10/24/23 22:10 10/24/23 22:00 3 10/24/23 21:00 3 Intake and Output 10/25/23 10/25/23 10/25/23 07:59 15:59 23:59 Intake Total 222 / 1029.18 360 / 1029.18 447.18 / 1029.18 Output Total 1200 / 3400 1200 / 3400 1000 / 3400 Balance -978 / -2370.82 -840 / -2370.82 -552.82 / -2370.82 Intake: Intake, Oral Amount 222 / 822 360 / 822 240 / 822 Intake, Total IV Amount 207.18 / 207.18 Output: Output, Urine Amount 1200 / 3400 1200 / 3400 1000 / 3400 Other: Number of Voids 1 Number of Unmeasured Voids 0 Weight 69.1 kg 69.1 kg Patient Weight 10/25/23 23:59 Weight 69.1 kg Laboratory Results - last 24 hr 10/25/23 05:46: WBC 10.2, RBC 4.48, Hgb 12.4, Hct 41.9, MCV 93.5, MCH 27.6, MCHC 29.5 L, RDW 17.0, Plt Count 441 H, MPV 8.5, Neut % (Auto) 76.4, Lymph % (Auto) 15.1, [place] % (Auto) 8.4, Eos % (Auto) 0.1, Baso % (Auto) 0.1, Neut # (Auto) 7.8, Lymph # (Auto) 1.5, [place] # (Auto) 0.9, Eos # (Auto) 0.0, Baso # (Auto) 0.0, Sodium 137, Potassium 3.9, Chloride 93 L, Carbon Dioxide 36 H, Anion Gap 11.9, BUN 43 H, Creatinine 1.00, Estimated Creat Clear 65, Estimated GFR 57 L, Est GFR ( Amer) 68, Glucose 99, Calcium 8.5, Magnesium 2.0, Total Bilirubin 0.3, AST 45 H D, ALT 39, Alkaline Phosphatase 88, Total Protein 6.7, Albumin 3.6, Globulin 3.1, Albumin/Globulin Ratio 1.2 I & O for Labs for Last 24 Hours: Intake & Output 10/22/23 10/23/23 10/24/23 10/25/23 23:59 23:59 23:59 23:59 Intake Total 240 / 240 2441.482 / 2441.482 2611 / 2833 1029.18 / 1029.18 Output Total 400 / 400 1200 / 1200 5700 / 5700 3400 / 3400 Balance -160 / -160 1241.482 / 1241.482 -3089 / -2867 -2370.82 / -2370.82 Weight 69.4 kg 69.4 kg 69.116 kg 69.1 kg Microbiology Reports for the Last 24 Hours: Microbiology 10/23/23 13:18 Sputum - Expectorated Sputum Gram Stain - Final 10/23/23 13:18 Sputum - Expectorated Sputum Sputum Culture - Preliminary Constitutional: Present no acute distress, average body habitus, chronically ill appearing and cooperative Head: Present atraumatic and normocephalic ENT: Present normal exam Neck: Present normal inspection Respiratory: Present prolonged expiratory phase and normal respiratory effort; Absent respiratory distress, rhonchi, wheezes or crackles Cardiac: Present Reg Rate and Rhythm GI: Present soft and normal bowel sounds; Absent distention or tenderness Extremities: Present normal inspection and full ROM Skin: Present intact; Absent erythema Neuro: Present Grossly Intact, alert, awake, oriented x 3 and moves all extremities Assessment and Plan *Assessment and plan (1) CHF exacerbation: Status: Acute Qualifiers: Heart failure type: systolic Qualified Code(s): I50.23 - Acute on chronic systolic (congestive) heart failure Category: Medical Code(s): I50.9 - Heart failure, unspecified (2) PNA (pneumonia): Status: Acute Qualifiers: Laterality: unspecified laterality Lung location: unspecified part of lung Pneumonia type: due to unspecified organism Qualified Code(s): J18.9 - Pneumonia, unspecified organism Category: Medical Code(s): J18.9 - Pneumonia, unspecified organism (3) Atrial flutter with rapid ventricular response: Status: Acute Category: Medical Code(s): I48.92 - Unspecified atrial flutter (4) COPD exacerbation: Status: Acute Category: Medical Code(s): J44.1 - Chronic obstructive pulmonary disease with (acute) exacerbation (5) Smoking greater than 30 pack years: Status: Acute Category: Social Hx Code(s): F17.210 - Nicotine dependence, cigarettes, uncomplicated (6) Dyspnea on exertion: Status: Acute Category: Medical Code(s): R06.09 - Other forms of dyspnea (7) Hypothyroidism: Status: Chronic Qualifiers: Hypothyroidism type: unspecified Qualified Code(s): E03.9 - Hypothyroidism, unspecified Category: Medical Code(s): E03.9 - Hypothyroidism, unspecified (8) Coronary artery disease: Status: Chronic Qualifiers: Coronary Disease-Associated Artery/Lesion type: [place] artery [place] vs. transplanted heart: [place] heart Associated angina: without angina Qualified Code(s): I25.10 - Atherosclerotic heart disease of [place] coronary artery without angina pectoris Category: Medical Code(s): I25.10 - Atherosclerotic heart disease of [place] coronary artery without angina pectoris (9) Hypertension: Status: Chronic Qualifiers: Hypertension type: primary hypertension Qualified Code(s): I10 - Essential (primary) hypertension Category: Medical Code(s): I10 - Essential (primary) hypertension (10) Hyperlipidemia: Status: Chronic Qualifiers: Hyperlipidemia type: mixed hyperlipidemia Qualified Code(s): E78.2 - Mixed hyperlipidemia Category: Medical Code(s): E78.5 - Hyperlipidemia, unspecified Plan Delia Buchanan is a 62-year-old female with a medical history significant for COPD (2 L with exertion as needed), current tobacco smoker (4 cigarettes/day), HFrEF (LVEF 25 to 30% on 08/11/2023), A-flutter (on Eliquis, s/p unsuccessful cardioversion August 2023), CAD, hypertension, hyperlipidemia, hypothyroidism presented on 10/22/2023 with 1 week of yellow productive cough, shortness of breath, leg swelling which significantly worsened yesterday. Discussed case with ED attending and decision was made to admit patient for acute on chronic hypoxic, hypercapnic respiratory failure secondary to COPD, HFrEF exacerbation, and A-flutter with RVR. Showing some improvement in rate control. Still re quiring 3 L oxygen. Lungs improved today. Cardiology evaluated, given severity of heart failure, need to address volume status and aggressively diurese. Continues to require inpatient management. Problems addressed as follows: #Atrial flutter with RVR Acute on chronic heart failure with reduced ejection fraction ? Discussed case with cardiology, recommend resuming amiodarone load for better rate control. Regular today with IV. Echo shows worsening EF of 15%. Increase Lasix to 40 mg IV twice daily. Recommend starting Entresto 24/26 mg twice daily for heart failure. Further management pending improvement in volume status ? metoprolol succinate 100 mg twice daily. -Continue amiodarone 400 mg oral twice daily. ? Continue home Eliquis 5 mg twice daily. She prefers this over Xarelto as she states she does not have a set dinnertime to take Xarelto. ? Goal K+ > 4, Mg > 2. Replete as appropriate. Potassium 3.9, magnesium 2.0. Kidney function at baseline with BUN 43, creatinine 1.1. Repeat CBC, CMP, magnesium ordered for the morning. - Risk stratification for HFrEF: A1c, lipid panel, TSH normal. ? Given known history of CAD, current smoker, and new HFrEF, patient will benefit from ischemic workup. Plan for cardiology consult on Wednesday. ? GDMT: Jardiance 10 mg. ? Will need close follow-up with cardiology outpatient. Will also benefit from cardiac rehab. #Acute on chronic hypoxic respiratory failure #Acute hypercapnic respiratory failure ? Most consistent with acute COPD exacerbation and HFrEF exacerbation present on arrival. See separate problems. #Acute COPD exacerbation #? Community-acquired pneumonia ? Patient reported 1 week onset of increased cough and productive sputum with color change to yellow on admission. No sick contacts, reports adherence with inhalers. Uses Symbicort and albuterol at home. ? VBG shows new hypercapnia compared to past studies, 56.3. However, compen sated with pH 7.33. Mild leukocytosis 12.9. ? Exam reveals bilateral decreased air movement, moderate wheezing, increased work of breathing but improved today. No fever, upper respiratory symptoms. ? CXR does not show acute findings. ? PSI risk class IV. Plan: ? ipratropium/Xopenex breathing treatments every 4 hours ? Pulmicort scheduled. ? Prednisone 40 mg day 4/5. ? Ceftriaxone, azithromycin day 4/5. Ceftriaxone can be discontinued if low suspicion for CAP tomorrow. ? Follow-up respiratory panel. Obtain MRSA PCR if leukocytosis worsens, or patient becomes febrile. #Hypothyroidism ? continue home levothyroxine 50 mcg. ? Repeat TSH, T4 normal. #CAD, hyperlipidemia ? Aspirin, atorvastatin. CODE STATUS: Full code Diet: Cardiac DVT prophylaxis: Home Eliquis
[2023-10-26] VITALS (14 sets, daily range): BP systolic 90–140; BP diastolic 56–95; PULSE 45–110; RESP 14–19; TEMP 35.6–36.9; O2SAT 89–97; BMI 22.6
[2023-10-26] MEDS: MORPHINE 2MG/ML SYRINGE 2 MG IV ×5 (01:30→21:08)
[2023-10-26] MEDS: LEVOTHYROXINE 50MCG (0.05MG) TAB 50 MCG PO (06:19)
[2023-10-26] MEDS: LEVALBUTEROL 1.25MG/3ML NEB 1.25 MG IH ×3 (06:24→18:23)
[2023-10-26] MEDS: BUDESONIDE 0.5MG/2ML NEB 0.5 MG IH ×2 (06:24→18:23)
[2023-10-26] MEDS: IPRATROPIUM BROMIDE 0.5 MG/2.5ML SOLUTION IH ×3 (06:24→18:23)
[2023-10-26 07:13] LABS: Basophils % 0.3 % (0.1-2.0); Eosinophils # 0.1 K/mm3 (0.0-0.4); Eosinophils % 0.6 % (0.1-12.0); Hematocrit 49.3 % (37.0-47.0); Lymphocytes % 22.6 % (10-50); Mean Corpuscular Hemoglobin 28.2 pg (27.0-31.2); Mean Platelet Volume 7.8 fl (7.4-10.4); Monocytes # 0.9 K/mm3 (0.1-1.0); Monocytes % 10.7 % (1.7-9.3); Neutrophils # 5.8 K/mm3 (1.8-7.8); Neutrophils % 65.8 % (37.0-80.0); Platelet Count 404 K/mm3 (142-424); Red Blood Count 5.25 M/mm3 (4.20-5.40); Red Cell Distribution Width 16.3 % (11.5-17.5); White Blood Count 8.8 K/mm3 (4.8-10.8)
[2023-10-26] MEDS: AZITHROMYCIN 250MG TABLET 500 MG PO (08:12)
[2023-10-26] MEDS: EMPAGLIFLOZIN 10MG TABLET 10 MG PO (08:12)
[2023-10-26] MEDS: CITALOPRAM 10MG TABLET 10 MG PO (08:12)
[2023-10-26] MEDS: FUROSEMIDE 40MG/4ML VIAL 40 MG IV ×2 (08:12→16:55)
[2023-10-26] MEDS: AMIODARONE 200MG TABLET 400 MG PO ×2 (08:12→21:01)
[2023-10-26] MEDS: METOPROLOL SUCCINATE XL 100MG TABLET 100 MG PO ×2 (08:12→21:01)
[2023-10-26] MEDS: LIDOCAINE 5% TRANSDERMAL PATCH 1 EACH TP (08:12)
[2023-10-26] MEDS: ASPIRIN EC 81MG TABLET 81 MG PO (08:12)
[2023-10-26] MEDS: SPIRONOLACTONE 25MG TABLET 25 MG PO (08:12)
[2023-10-26] MEDS: SACUBITRIL/VALSARTAN 24-26MG TABLET 1 EACH PO ×2 (08:12→21:01)
[2023-10-26] MEDS: predniSONE 20MG TAB 40 MG PO (08:12)
[2023-10-26] MEDS: APIXABAN 5MG TABLET 5 MG PO ×2 (08:12→21:01)
[2023-10-26 08:21] LABS: Hemoglobin 15.1 g/dL (12.2-16.2)
[2023-10-26 08:38] LABS: Chloride 94 mmol/L (98-107); Sodium 137 mmol/L (136-145)
[2023-10-26 08:39] LABS: Potassium 4.1 mmoL/L (3.5-5.1)
[2023-10-26 08:41] LABS: Alanine Aminotransferase 52 U/L (12-78); Aspartate Amino Transferase 45 U/L (14-36); Bilirubin,Total 0.4 mg/dl (0.2-1.3); Blood Urea Nitrogen 43 mg/dl (7-17); Creatinine Clearance Estimated 77 mL/min (50-200); Estimated Glomerular Filt Rate 64 ml/min (>60); GFR (African American) 77 ML/MIN (>60)
[2023-10-26 08:42] LABS: Albumin/Globulin Ratio 1.4 (1.1-1.8); Alkaline Phosphatase 88 U/L (38-126); Calcium 8.7 mg/dl (8.4-10.2); Globulin 2.9 g/dL (1.3-3.2); Glucose 116 mg/dl (74-100); Total Protein,Serum 6.9 g/dl (6.3-8.2)
[2023-10-26 08:49] LABS: Anion Gap 9.1 mEq/L (5-15); Carbon Dioxide 38 mmol/L (22.0-30.0)
--- NOTE | 2023-10-26 09:02 | PC.NURSE ---
Amiodarone drip turned off at 0808 per order.
[2023-10-26] MEDS: FAMOTIDINE 20MG TABLET 40 MG PO (12:22)
[2023-10-26] MEDS: CEFTRIAXONE 1 GM 1 GM in 0.9 % SODIUM CHLORIDE 50 ML IV (12:22)
[2023-10-26] MEDS: PANTOPRAZOLE 40MG TABLET 40 MG PO (12:23)
--- NOTE | 2023-10-26 12:57 | P.PN_ITS ---
Subjective Subjective Date: 10/26/23 Time: 11:00 Principal diagnosis: HFrEF, atrial flutter with RVR Interval history: This is a 62-year-old white female who presented to the emergency department complaints of shortness of breath and chest pain. The patient is currently being treated for atrial flutter with RVR and acute HFrEF. Today she states that she just does not feel well. She states that she feels very tired. She is still having a lot of shortness of breath and an associated cough. She complains of burning in her chest and feels like she is having a lot of heartburn. She has not been given her reflux medications here at the hospital. She denies any lower extremity edema today. She states that she also feels very nauseous but has not had any episodes of vomiting. She denies any fever, chills or diarrhea. Exam Data for Last 24 hours Vital signs and Labs for Last 24 Hours: Temp Pulse Resp BP Pulse Ox O2 Del Method O2 Flow Rate 97.8 F 96 H 18 94/66 L 94 L Nasal Cannula 2 10/26/23 08:00 10/26/23 10:00 10/26/23 10:00 10/26/23 10:00 10/26/23 10:00 10/26/23 12:39 10/26/23 12:39 FiO2 32 10/24/23 19:12 Laboratory Results - last 24 hr 10/26/23 05:46: WBC 8.8, RBC 5.25, Hgb 15.1 D, Hct 49.3 H, MCV 94.0, MCH 28.2, MCHC 30.0 L, RDW 16.3, Plt Count 404, MPV 7.8, Neut % (Auto) 65.8, Lymph % (Auto) 22.6, [place] % (Auto) 10.7 H, Eos % (Auto) 0.6, Baso % (Auto) 0.3, Neut # (Auto) 5.8, Lymph # (Auto) 2.0, [place] # (Auto) 0.9, Eos # (Auto) 0.1, Baso # (Auto) 0.0 10/26/23 08:00: Sodium 137, Potassium 4.1, Chloride 94 L, Carbon Dioxide 38 H, Anion Gap 9.1, BUN 43 H, Creatinine 0.90, Estimated Creat Clear 77, Estimated GFR 64, Est GFR ( Amer) 77, Glucose 116 H, Calcium 8.7, Total Bilirubin 0.4, AST 45 H, ALT 52 D, Alkaline Phosphatase 88, Total Protein 6.9, Albumin 4.0 D, Globulin 2.9, Albumin/Globulin Ratio 1.4 I & O for Last 24 hours: Intake & Output 10/23/23 10/24/23 10/25/23 10/26/23 23:59 23:59 23:59 23:59 Intake Total 2441.482 / 2441.482 2611 / 2833 1389.18 / 1389.18 660 / 660 Output Total 1200 / 1200 5700 / 5700 4375 / 4375 600 / 600 Balance 1241.482 / 1241.482 -3089 / -2867 -2985.82 / -2985.82 60 / 60 Weight 153 lb 0.013 oz 152 lb 6 oz 152 lb 5.431 oz 161 lb 9 oz Microbiology Reports for the Last 24 Hours: Microbiology 10/22/23 12:27 Blood Blood Culture - Preliminary NO GROWTH AFTER 4 DAYS 10/22/23 11:30 Blood Blood Culture - Preliminary NO GROWTH AFTER 4 DAYS 10/23/23 13:18 Sputum - Expectorated Sputum Gram Stain - Final 10/23/23 13:18 Sputum - Expectorated Sputum Sputum Culture - Preliminary Gram Negative Rods Constitutional Constitutional: no acute distress and average body habitus *Routine HEENT Exam Head: Present normocephalic and atraumatic ENT: Present mucous membranes moist *Routine Neck Exam Neck: Present supple, full ROM and normal carotid upstroke; Absent JVD, carotid bruit or lymphadenopathy *Routine Respiratory Exam Respiratory: Present CTA bilaterally, normal respiratory effort, able to speak in complete sentences and symmetric chest movement *Routine Cardiovascular Exam Cardiovascular: Present Normal S1, Normal S2 and irregular rhythm; Absent murmur or gallop *Routine Abdominal Exam Abdominal: Present soft and normoactive bowel sounds; Absent tenderness, distended or organomegaly *Routine Extremities Exam Extremities: Present full ROM, pulses intact and normal capillary refill; Absent cyanosis, clubbing or edema *Routine Skin Exam Skin: Present intact and warm; Absent erythema *Routine Neurological Exam Neurological: Present alert, oriented X3 and CN II-XII intact; Absent sensory deficit or motor deficit Routine Psychiatric Exam Psychiatric: Present normal affect Progress Note: A&P Assessment and plan (1) HFrEF (heart failure with reduced ejection fraction): Status: Acute (2) Atrial flutter with rapid ventricular response: Status: Acute (3) PNA (pneumonia): Status: Acute (4) COPD exacerbation: Status: Acute (5) Smoking greater than 30 pack years: Status: Acute (6) Dyspnea on exertion: Status: Acute (7) Hypothyroidism: Status: Chronic (8) Hypertension: Status: Chronic (9) Hyperlipidemia: Status: Chronic (10) Atrial flutter: Status: Acute Assessment and Plan Assessment and Plan for All Diagnoses:: Plan: 1. The patient was mated to the hospital with atrial fibrillation/flutter with RVR. She was started on amiodarone drip yesterday as well as oral amiodarone. She is now rate controlled but remains in atrial flutter this morning. Her amiodarone drip has been stopped. Continue oral amiodarone at this time. 2. The patient is on long-term anticoagulation with Eliquis. She denies any bleeding. 3. The patient does have acute exacerbation of HFrEF. Her ejection fraction is down to 20%. The patient is at increased risk of sudden cardiac due to her severe LV dysfunction. A LifeVest has been ordered and is approved. The patient will be fitted for a LifeVest prior to discharge home. 4. The patient is being diuresed with IV Lasix. She had a -1900 fluid balance over night. continue diuresis at time time. 5. The patient is not a candidate for an AICD yet because she keeps going into atrial fibrillation/flutter with RVR which is causing her to go into heart failure. 6. Continue metoprolol for HFrEF and better heart rate control. 7. Continue spironolactone, Entresto and Jardiance for HFrEF. 8. Her blood pressure is well-controlled. 9. Her LDL goal is less than 100. Her LDL is 75. She is on a statin. 10. The patient has a history of normal coronary arteries. Her troponins were negative. No plans for invasive left cardiac catheterization at this time. She is having reflux today. Will get her restarted on her Protonix and give her dose of Pepcid today as well. If her symptoms persist despite being back on PPIs then consider an ischemic evaluation. Repeat EKG in the morning. 11. Repeat LFTs, TSH and free T4 and BMP in the morning. 12. Further recommendations will be made pending the patient's response to treatment. Thank you for the opportunity to help participate in the care of this patient. All recommendations and orders are per Dr. Ruano. Addendum: The patient states that her acid reflux and chest pain have resolved with restarting her PPI. However, she does report that she still feels extremely short of breath and feels essentially no better than she did this morning. She states she still feels really nauseated and overall just does not feel well. Will obtain an EKG now. Will also repeat a CBC, BMP, liver panel and lactic acid and troponin now and in the morning.
--- NOTE | 2023-10-26 13:09 | PC.NURSE ---
Pt is alert and oriented x4. Lungs diminished w/wheezes. She is currently on 2L NC w/O2 sats measuring >93%. She's complained of back pain, treated with prn morphine x2 thus far. She reports relief on reassessment. She's been a flutter on tele. She has no other questions or complaints at this time. Bed is locked and in the lowest position, call light is within reach.
--- NOTE | 2023-10-26 14:05 | HMH.OTEV ---
OT Inpatient Evaluation Rehab OT IP Evaluation Start: 10/26/23 10:35 Freq: ONCE Status: Active Protocol: Document 10/26/23 14:01 SAJAN (Rec: 10/26/23 14:05 [facility] [id number]) Rehab OT IP Assessment Subjective History Pt oriented x 3 on arrival. Pt agreeable to engage in therapy evaluation. Pt admitted on 10/22/23 due to COPD exacerbation, CHF exacerbation. History and physical: Delia Buchanan is a 62-year-old female with a medical history significant for COPD (2 L with exertion as needed), current tobacco smoker (4 cigarettes/day), HFrEF (LVEF 25 to 30% on 08/11/2023), A- flutter (on Xarelto, s/p unsuccessful cardioversion August 2023), CAD, hypertension, hyperlipidemia, hypothyroidism presents with 1 week of yellow productive cough, shortness of breath, leg swelling which significantly worsened yesterday. Patient states she began to experience significant dyspnea with palpitations on exertion starting around 4 PM yesterday . She also notes central chest pain with cough and tightness over the last few days without radiation to left shoulder, nausea/vomiting, diaphoresis. She denies fevers, sick contacts, abdominal pain, diarrhea/ constipation, urinary symptoms . She states she has been adherent with all her medications. Patient recently had a cardioversion for a flutter in August 2023, however patient states she went back into a flutter within a day. Cardiology is planning for an ablation outpatient. In the ED, HR up to 140 and initial BP 146/105 which is improved to 102/65. She was initially placed on BiPAP but weaned to 2 L nasal cannula with appropriate saturations. Labs significant for WBC 12.9 , VBG pCO2 56.3, pH 7.33, proBNP 3140, normal troponin X2. EKG shows a flutter without acute ST changes. CXR unremarkable for acute changes. Pending chest CTA to rule out pulmonary embolus at this time. Patient was given DuoNeb, IV Lasix 40 mg, IV morphine 4 mg, Zofran. Patient will be admitted for further evaluation management to the hospital medicine service for acute hypoxic, hypercapnic respiratory failure secondary to COPD and HFrEF exacerbation, and a flutter. Subjective I was having trouble breathing. Prior to being in the hospital , pt lived at home alone. Pt claims normally she is independent with all ADLs and IADLs. She does not require any type of AE during functional transfers. Pt still drives. She does use supplemental oxygen at home as needed. Objective Patient Orientation Person,Place,Birthday Right Upper Extremity Gross ROM WFL Left Upper Extremity Gross ROM WFL Bed Mobility bed mobility-scooting,bed mobility - supine/sit Assist Level Supervision/Stand by Transfer Training Sit/Stand Transfer Assist Level Supervision/Stand by Lower Body Dressing Ability Standby Assistance Performing Toilet Hygiene Ability Standby Assistance Overall Commode/Toilet Transfer Ability Standby Assistance Commode/Toilet Transfer Technique Sit to/from Ambulatory Rehab OT IP prob,goals,plan Problems Date of Evaluation: 10/26/23 Rehab Potential Rehab Potential Innapropriate for Skilled Therapy Discharge Plan OT Discharge Plan Pt appears to be at her baseline with functional transfers and ADL independence . Pt can return home once she is medically stable per physician. Eval Complexity Eval Charge Codes 52280 - Moderate Complexity PHYSICIAN CERTIFICATION: I certify the specified therapy services for Delia Buchanan are required, authorized, and reviewed every 30 days.
[2023-10-26 14:26] LABS: Basophils % 0.2 % (0.1-2.0); Eosinophils # 0.2 K/mm3 (0.0-0.4); Eosinophils % 1.6 % (0.1-12.0); Hemoglobin 15.2 g/dL (12.2-16.2); Lymphocytes # 1.2 K/mm3 (0.7-4.5); Lymphocytes % 11.4 % (10-50); Mean Corpuscular HGB Conc 29.2 g/dL (31.8-35.4); Mean Corpuscular Hemoglobin 27.7 pg (27.0-31.2); Mean Corpuscular Volume 94.9 fl (81-99); Monocytes # 0.6 K/mm3 (0.1-1.0); Monocytes % 5.6 % (1.7-9.3); Neutrophils # 8.4 K/mm3 (1.8-7.8); Neutrophils % 81.2 % (37.0-80.0); Platelet Count 455 K/mm3 (142-424); Red Blood Count 5.48 M/mm3 (4.20-5.40); Red Cell Distribution Width 16.1 % (11.5-17.5); White Blood Count 10.3 K/mm3 (4.8-10.8)
[2023-10-26 14:36] LABS: Albumin Level 4.1 g/dl (3.5-5.0); Chloride 92 mmol/L (98-107); Potassium 3.8 mmoL/L (3.5-5.1); Sodium 138 mmol/L (136-145)
[2023-10-26 14:39] LABS: Alanine Aminotransferase 65 U/L (12-78); Alkaline Phosphatase 94 U/L (38-126); Aspartate Amino Transferase 68 U/L (14-36); Bilirubin,Direct 0.3 mg/dl (0.0-0.4); Bilirubin,Indirect 0.1 mg/dL (0.0-0.9); Bilirubin,Total 0.4 mg/dl (0.2-1.3); Bilirubin,Unconjugated 0.1 mg/dL (0.0-1.1); Blood Urea Nitrogen 44 mg/dl (7-17); Calcium 8.6 mg/dl (8.4-10.2); Creatinine Clearance Estimated 63 mL/min (50-200); Estimated Glomerular Filt Rate 51 ml/min (>60); GFR (African American) 61 ML/MIN (>60); Glucose 103 mg/dl (74-100); Total Protein,Serum 7.5 g/dl (6.3-8.2)
--- NOTE | 2023-10-26 14:51 | HMH.PTEV ---
Physical Therapy Evaluation Rehab PT IP Evaluation Start: 10/26/23 10:34 Freq: ONCE Status: Active Protocol: Document 10/26/23 14:04 VERONICA (Rec: 10/26/23 14:51 VERONICA [id number]) Subjective/History History History This is the initial inpatient evaluation for Delia Buchanan, a 62 yof that was admitted into [facility] for COPD exacerbation . This patient has a past medical history that includes but not limited to: elevated liver enzymes, smoking greater than 30 pack years, Dyspnea, pulmonary emphysema, Afib, sinus bradycardia, coronary artery disease, continuous use of opioids, hypothyroidism, atrial fibrillation/flutter, pulmonary hypertension, Hepatitis C, Tobacco dependence, (HFpEF) heart failure with preserved ejection fraction, hypertension, and COPD. The patient has a surgical history that includes: hysterectomy, surgery on right wrist, mandibular surgery, left heart catheterization, cholecystectomy, S/P rotator cuff repair, splenectomy, cardioversion. Subjective Subjective The patient stated that I need to use the restroom after getting to the EOB with the rehab team. The patient stated that she was independent with all ADL's prior to being admitted to [facility] at this time. Patient lives in a home that does not have steps on the outside or on the inside. This patient was able to don and doff clothes, cook and clean, as well as drive prior to being admitted. Patient was able to ambulate to the restroom and did not need assistance in the restroom at this time. New diagnosis of cancer in past 12 No months? Rehab PT IP Eval Objective Appearance Patient Behavior Appropriate,Cooperative Difficulty following instructions none Speech Pattern Clear,Appropriate Ambulation Patient Able to Ambulate Yes Ambulation Observation IP General Gait Pattern Observation No Deviations/Normal Ambulation Distance (feet) 25 Ambulation Assistive Device None Ambulation Ability Independent Balance Ability to Arise Able, uses arms to help Sitting Balance Steady, safe Standing Balance Narrow stance w/o support Dynamic Sitting Balance Ability Normal Dynamic Standing Balance Ability Normal Transfers Bed Transfer Ability Independent Sit to Stand Bed Transfer Ability Independent Rehab PT IP prob,goals,plan Problems Date of Evaluation: 10/26/23 Discharge Plan PT Discharge Plan Patient is most appropriate at this time to discharge to home with home health. Skilled therapy not required at this time as patient was independent with bed mobility, gait, and transfers at this time. Eval Complexity Eval Charge Codes 71122 - High Complexity PHYSICIAN CERTIFICATION: I certify the specified therapy services for Delia Connor Buchanan are required, authorized, and reviewed every 30 days.
[2023-10-26 14:56] LABS: Anion Gap 10.8 mEq/L (5-15); Carbon Dioxide 39 mmol/L (22.0-30.0)
[2023-10-26 14:58] LABS: Troponin I < 0.01 ng/ml (0.00-0.034)
[2023-10-26] MEDS: OXYCODONE 5MG W/APAP 325MG TABLET 1 EACH PO (15:43)
--- NOTE | 2023-10-26 16:49 | P.PN_ITS ---
Subjective *Date: 10/26/23 *Time: 16:49 Interval history: Patient was lying in bed this morning and continues to have mild pursed lip breathing. She states she is a little better this morning but not a lot in relation to her malaise, work of breathing. She was weaned off IV amiodarone d rip this morning and transition to p.o. amiodarone after rate control. Denies chest pain, abdominal pain. Tolerating p.o. intake. Exam Data for Last 24 hours Vital signs and Labs for Last 24 Hours: Temp Pulse Resp BP Pulse Ox O2 Del Method O2 Flow Rate 96.1 F L 70 14 105/65 L 94 L Nasal Cannula 2 10/26/23 12:00 10/26/23 13:10 10/26/23 12:00 10/26/23 12:00 10/26/23 12:00 10/26/23 12:39 10/26/23 12:39 FiO2 32 10/24/23 19:12 Laboratory Results - last 24 hr 10/26/23 05:46: WBC 8.8, RBC 5.25, Hgb 15.1 D, Hct 49.3 H, MCV 94.0, MCH 28.2, MCHC 30.0 L, RDW 16.3, Plt Count 404, MPV 7.8, Neut % (Auto) 65.8, Lymph % (Auto) 22.6, [place] % (Auto) 10.7 H, Eos % (Auto) 0.6, Baso % (Auto) 0.3, Neut # (Auto) 5.8, Lymph # (Auto) 2.0, [place] # (Auto) 0.9, Eos # (Auto) 0.1, Baso # (Auto) 0.0 10/26/23 08:00: Sodium 137, Potassium 4.1, Chloride 94 L, Carbon Dioxide 38 H, Anion Gap 9.1, BUN 43 H, Creatinine 0.90, Estimated Creat Clear 77, Estimated GFR 64, Est GFR ( Amer) 77, Glucose 116 H, Calcium 8.7, Total Bilirubin 0.4, AST 45 H, ALT 52 D, Alkaline Phosphatase 88, Total Protein 6.9, Albumin 4.0 D, Globulin 2.9, Albumin/Globulin Ratio 1.4 10/26/23 14:10: WBC 10.3, RBC 5.48 H, Hgb 15.2, Hct 52.0 H, MCV 94.9, MCH 27.7, MCHC 29.2 L, RDW 16.1, Plt Count 455 H, MPV 7.0 L, Neut % (Auto) 81.2 H, Lymph % (Auto) 11.4, [place] % (Auto) 5.6, Eos % (Auto) 1.6, Baso % (Auto) 0.2, Neut # (Auto) 8.4 H, Lymph # (Auto) 1.2, [place] # (Auto) 0.6, Eos # (Auto) 0.2, Baso # (Auto) 0.0, Sodium 138, Potassium 3.8, Chloride 92 L, Carbon Dioxide 39 H, Anion Gap 10.8, BUN 44 H, Creatinine 1.10 H D, Estimated Creat Clear 63, Estimated GFR 51 L, Est GFR ( Amer) 61 D, Glucose 103 H, Lactate 1.0, Calcium 8.6, Total Bilirubin 0.4, Direct Bilirubin 0.3, Conjugated Bilirubin 0.0, Indirect B ilirubin 0.1, Unconjugated Bilirubin 0.1, AST 68 H D, ALT 65, Alkaline Phosphatase 94, Troponin I < 0.01, Total Protein 7.5, Albumin 4.1 Temp Pulse Resp BP Pulse Ox O2 Del Method O2 Flow Rate 98.6 F 121 H 20 129/99 H 93 L Nasal Cannula 4 10/25/23 11:59 10/25/23 12:00 10/25/23 10:00 10/25/23 10:00 10/25/23 10:00 10/25/23 10:00 10/25/23 10:00 FiO2 32 10/24/23 19:12 Laboratory Results - last 24 hr 10/25/23 05:46: WBC 10.2, RBC 4.48, Hgb 12.4, Hct 41.9, MCV 93.5, MCH 27.6, MCHC 29.5 L, RDW 17.0, Plt Count 441 H, MPV 8.5, Neut % (Auto) 76.4, Lymph % (Auto) 15.1, [place] % (Auto) 8.4, Eos % (Auto) 0.1, Baso % (Auto) 0.1, Neut # (Auto) 7.8, Lymph # (Auto) 1.5, [place] # (Auto) 0.9, Eos # (Auto) 0.0, Baso # (Auto) 0.0, Sodium 137, Potassium 3.9, Chloride 93 L, Carbon Dioxide 36 H, Anion Gap 11.9, BUN 43 H, Creatinine 1.00, Estimated Creat Clear 65, Estimated GFR 57 L, Est GFR ( Amer) 68, Glucose 99, Calcium 8.5, Magnesium 2.0, Total Bilirubin 0.3, AST 45 H D, ALT 39, Alkaline Phosphatase 88, Total Protein 6.7, Albumin 3.6, Globulin 3.1, Albumin/Globulin Ratio 1.2 I & O for Last 24 hours: Intake & Output 10/23/23 10/24/23 10/25/23 10/26/23 23:59 23:59 23:59 23:59 Intake Total 2441.482 / 2441.482 2611 / 2833 1389.18 / 1389.18 900 / 900 Output Total 1200 / 1200 5700 / 5700 4375 / 4375 1200 / 1200 Balance 1241.482 / 1241.482 -3089 / -2867 -2985.82 / -2985.82 -300 / -300 Weight 69.4 kg 69.116 kg 69.1 kg 73.284 kg Intake & Output 10/22/23 10/23/23 10/24/23 10/25/23 23:59 23:59 23:59 23:59 Intake Total 240 / 240 2441.482 / 2441.482 2611 / 2833 462 / 462 Output Total 400 / 400 1200 / 1200 5700 / 5700 1400 / 1400 Balance -160 / -160 1241.482 / 1241.482 -3089 / -2867 -938 / -938 Weight 153 lb 153 lb 0.013 oz 152 lb 6 oz 152 lb 5.431 oz Microbiology Reports for the Last 24 Hours: Microbiology 10/22/23 12:27 Blood Blood Culture - Preliminary NO GROWTH AFTER 4 DAYS 10/22/23 11:30 Blood Blood Culture - Preliminary NO GROWTH AFTER 4 DAYS 10/23/23 13:18 Sputum - Expectorated Sputum Gram Stain - Final 10/23/23 13:18 Sputum - Expectorated Sputum Sputum Culture - Preliminary Gram Negative Rods Microbiology 10/23/23 13:18 Sputum - Expectorated Sputum Gram Stain - Final 10/23/23 13:18 Sputum - Expectorated Sputum Sputum Culture - Preliminary 10/22/23 12:27 Blood Blood Culture - Preliminary NO GROWTH AFTER 48 HOURS 10/22/23 11:30 Blood Blood Culture - Preliminary NO GROWTH AFTER 48 HOURS Constitutional Constitutional: no acute distress and average body habitus *Routine HEENT Exam Head: Present normocephalic and atraumatic ENT: Present mucous membranes moist *Routine Neck Exam Neck: Present supple, full ROM and normal carotid upstroke; Absent JVD, carotid bruit or lymphadenopathy *Routine Respiratory Exam Respiratory: Present wheezes and diminished air movement Comments: Moderate wheezing bilateral lung ignacio. *Routine Cardiovascular Exam Cardiovascular: Present Normal S1, Normal S2, tachycardia and irregular rhythm; Absent murmur or gallop *Routine Abdominal Exam Abdominal: Present soft and normoactive bowel sounds; Absent tenderness, distended or organomegaly *Routine Extremities Exam Extremities: Present full ROM, pulses intact and normal capillary refill; Absent cyanosis, clubbing or edema *Routine Skin Exam Skin: Present intact and warm; Absent erythema *Routine Neurological Exam Neurological: Present alert, oriented X3 and CN II-XII intact; Absent sensory deficit or motor deficit Routine Psychiatric Exam Psychiatric: Present normal affect Assessment and Plan *Assessment and plan (1) CHF exacerbation: Status: Acute Qualifiers: Heart failure type: systolic Qualified Code(s): I50.23 - Acute on chronic systolic (congestive) heart failure Category: Medical Code(s): I50.9 - Heart failure, unspecified (2) PNA (pneumonia): Status: Acute Qualifiers: Laterality: unspecified laterality Lung location: unspecified part of lung Pneumonia type: due to unspecified organism Qualified Code(s): J18.9 - Pneumonia, unspecified organism Category: Medical Code(s): J18.9 - Pneumonia, unspecified organism (3) Atrial flutter with rapid ventricular response: Status: Acute Category: Medical Code(s): I48.92 - Unspecified atrial flutter (4) COPD exacerbation: Status: Acute Category: Medical Code(s): J44.1 - Chronic obstructive pulmonary disease with (acute) exacerbation (5) Smoking greater than 30 pack years: Status: Acute Category: Social Hx Code(s): F17.210 - Nicotine dependence, cigarettes, uncomplicated (6) Dyspnea on exertion: Status: Acute Category: Medical Code(s): R06.09 - Other forms of dyspnea (7) Hypothyroidism: Status: Chronic Qualifiers: Hypothyroidism type: unspecified Qualified Code(s): E03.9 - Hypothyroidism, unspecified Category: Medical Code(s): E03.9 - Hypothyroidism, unspecified (8) Coronary artery disease: Status: Chronic Qualifiers: Coronary Disease-Associated Artery/Lesion type: [place] artery [place] vs. transplanted heart: [place] heart Associated angina: without angina Qualified Code(s): I25.10 - Atherosclerotic heart disease of [place] coronary artery without angina pectoris Category: Medical Code(s): I25.10 - Atherosclerotic heart disease of [place] coronary artery without angina pectoris (9) Hypertension: Status: Chronic Qualifiers: Hypertension type: primary hypertension Qualified Code(s): I10 - Essential (primary) hypertension Category: Medical Code(s): I10 - Essential (primary) hypertension (10) Hyperlipidemia: Status: Chronic Qualifiers: Hyperlipidemia type: mixed hyperlipidemia Qualified Code(s): E78.2 - Mixed hyperlipidemia Category: Medical Code(s): E78.5 - Hyperlipidemia, unspecified Plan Delia Buchanan is a 62-year-old female with a medical history significant for COPD (2 L with exertion as needed), current tobacco smoker (4 cigarettes/day), HFrEF (LVEF 25 to 30% on 08/11/2023), A-flutter (on Eliquis, s/p unsuccessful cardioversion August 2023), CAD, hypertension, hyperlipidemia, hypothyroidism presented on 10/22/2023 with 1 week of yellow productive cough, shortness of breath, leg swelling which significantly worsened yesterday. Discussed case with ED attending and decision was made to admit patient for acute on chronic hypoxic, hypercapnic respiratory failure secondary to COPD, HFrEF exacerbation, and A-flutter with RVR. Showing some improvement in rate control. Still requiring 2 L oxygen. Lungs improved today. Cardiology evaluated, given severity of heart failure, need to address volume status and aggressively diurese. Continues to require inpatient management. Problems addressed as follows: #Atrial flutter with RVR, resolved Acute on chronic heart failure with reduced ejection fraction ? Weaned off IV amiodarone drip this morning, transition to p.o. amiodarone 400 mg twice daily. Currently rate controlled. ? metoprolol succinate 100 mg twice daily. -Continue amiodarone 400 mg oral twice daily. ? Continue home Eliquis 5 mg twice daily. She prefers this over Xarelto as she states she does not have a set dinnertime to take Xarelto. ? Goal K+ > 4, Mg > 2. Replete as appropriate. Continue to monitor electrolytes. - Risk stratification for HFrEF: A1c, lipid panel, TSH normal. ? Cardiology is not planning for [facility] at this time given likely etiology of worsening heart failure is uncontrolled a flutter with RVR. As such, they also do not think she is a candidate for AICD at this time. ? LifeVest ordered, will need to be fitted before discharge. ? IV Lasix 40 mg twice daily, will continue at this time per cardiology recommendations. ? GDMT: Jardiance 10 mg, Entresto, spironolactone, metoprolol succinate. ? Will need close follow-up with cardiology outpatient. Will also benefit from cardiac rehab. #Acute on chronic hypoxic respiratory failure #Acute hypercapnic respiratory failure ? Most consistent with acute COPD exacerbation and HFrEF exacerbation present on arrival. See separate problems. #Acute COPD exacerbation #? Community-acquired pneumonia ? Patient reported 1 week onset of increased cough and productive sputum with color change to yellow on admission. No sick contacts, reports adherence with inhalers. Uses Symbicort and albuterol at home. ? VBG shows new hypercapnia compared to past studies, 56.3. However, compensated with pH 7.33. Mild leukocytosis 12.9. ? Exam reveals bilateral decreased air movement, moderate wheezing, increased work of breathing but improved today. No fever, upper respiratory symptoms. ? CXR does not show acute findings. ? PSI risk class IV. Plan: ? ipratropium/Xopenex breathing treatments every 4 hours ? Pulmicort scheduled. ? Prednisone 40 mg day 5/5. Given additional dose of Solu-Medrol today given persistent moderate wheezing, pursed lip breathing. ? Ceftriaxone, azithromycin day 5/5. - Pulmonology consulted today given persistent COPD exacerbation, appreciate recommendations. ? Follow-up respiratory panel. Obtain MRSA PCR if leukocytosis worsens, or patient becomes febrile. #Hypothyroidism ? continue home levothyroxine 50 mcg. ? Repeat TSH, T4 normal. #CAD, hyperlipidemia ? Aspirin, atorvastatin. CODE STATUS: Full code Diet: Cardiac DVT prophylaxis: Home Eliquis
[2023-10-26] MEDS: METHYLPREDNISOLONE SOD SUCC 40MG VIAL 40 MG IM (17:09)
--- NOTE | 2023-10-26 18:12 | PC.NURSE ---
since taking report, this patient has done well, vss, remains on baseline o2 of 2l nc and hr currently 88 and in a flutter. pt did admit she does not have running water. case management consulted.
[2023-10-26] MEDS: ATORVASTATIN 40MG TABLET 40 MG PO (21:01)
[2023-10-26] MEDS: ONDANSETRON 4MG/2ML VIAL 4 MG IV (22:40)
[2023-10-27] VITALS (23 sets, daily range): BP systolic 78–125; BP diastolic 55–86; PULSE 42–100; RESP 14–18; TEMP 36–37; O2SAT 93–98; BMI 22.4
[2023-10-27] MEDS: LEVALBUTEROL 1.25MG/3ML NEB 1.25 MG IH ×2 (01:51→06:32)
[2023-10-27] MEDS: IPRATROPIUM BROMIDE 0.5 MG/2.5ML SOLUTION IH ×2 (01:51→06:32)
[2023-10-27] MEDS: OXYCODONE 5MG W/APAP 325MG TABLET 1 EACH PO ×2 (04:37→23:40)
[2023-10-27] MEDS: MORPHINE 2MG/ML SYRINGE 2 MG IV ×4 (04:40→21:30)
--- NOTE | 2023-10-27 06:09 | PC.NURSE ---
Alert and oriented. Complained of pain twice, treated per mar. Gave patient PO pain medication, stated she also wanted IV pain medication, educated on doing these close in time, states her back pain is unbearable. 2L NC throughout the night. Aflutter on tele. Complained of nausea one time, treated per apr. Call light in reach.
[2023-10-27 06:17] LABS: Basophils % 0.2 % (0.1-2.0); Eosinophils # 0.1 K/mm3 (0.0-0.4); Eosinophils % 1.1 % (0.1-12.0); Hematocrit 50.6 % (37.0-47.0); Hemoglobin 14.8 g/dL (12.2-16.2); Lymphocytes % 10.2 % (10-50); Mean Corpuscular HGB Conc 29.3 g/dL (31.8-35.4); Mean Corpuscular Hemoglobin 27.5 pg (27.0-31.2); Mean Platelet Volume 7.2 fl (7.4-10.4); Monocytes # 0.4 K/mm3 (0.1-1.0); Monocytes % 3.7 % (1.7-9.3); Neutrophils # 8.7 K/mm3 (1.8-7.8); Neutrophils % 84.9 % (37.0-80.0); Platelet Count 459 K/mm3 (142-424); Red Blood Count 5.38 M/mm3 (4.20-5.40); Red Cell Distribution Width 16.2 % (11.5-17.5); White Blood Count 10.2 K/mm3 (4.8-10.8)
[2023-10-27] MEDS: LEVOTHYROXINE 50MCG (0.05MG) TAB 50 MCG PO (06:24)
[2023-10-27 06:26] LABS: Lactic Acid 1.1 mmol/L (0.7-2.1)
[2023-10-27 06:29] LABS: Alanine Aminotransferase 52 U/L (12-78); Albumin Level 3.6 g/dl (3.5-5.0); Albumin/Globulin Ratio 1.1 (1.1-1.8); Aspartate Amino Transferase 37 U/L (14-36); Blood Urea Nitrogen 56 mg/dl (7-17); Calcium 8.7 mg/dl (8.4-10.2); Creatinine Clearance Estimated 53 mL/min (50-200); Estimated Glomerular Filt Rate 42 ml/min (>60); GFR (African American) 51 ML/MIN (>60); Globulin 3.3 g/dL (1.3-3.2); Glucose 124 mg/dl (74-100); Total Protein,Serum 6.9 g/dl (6.3-8.2)
[2023-10-27] MEDS: BUDESONIDE 0.5MG/2ML NEB 0.5 MG IH (06:32)
--- NOTE | 2023-10-27 06:40 | ECG_ITS ---
APPROVED REPORT Exam: Resting ECG HR:86 bpm ECG Measurements Heart Rate 86 AXES QRSd 164 QRS 74 QT 458 T -75 QTc 501 Conclusion ATRIAL FLUTTER/TACHYCARDIA INTRAVENTRICULAR CONDUCTION DELAY [130+ ms QRS DURATION] ABNORMAL ECG UNCONFIRMED REPORT Electronically signed by : Favian Willard MD 10/29/2023 14:21:00
[2023-10-27 07:12] LABS: Alkaline Phosphatase 79 U/L (38-126); Anion Gap 12.1 mEq/L (5-15); Bilirubin,Total 0.4 mg/dl (0.2-1.3); Carbon Dioxide 36 mmol/L (22.0-30.0); Chloride 91 mmol/L (98-107); Potassium 4.1 mmoL/L (3.5-5.1); Sodium 135 mmol/L (136-145)
[2023-10-27 07:33] LABS: Free T4 (Free Thyroxine) 1.03 ng/dl (0.78-2.19)
[2023-10-27 08:06] LABS: Albumin Level 3.6 g/dl (3.5-5.0); Alkaline Phosphatase 79 U/L (38-126); Aspartate Amino Transferase 36 U/L (14-36); Bilirubin,Direct 0.2 mg/dl (0.0-0.4); Bilirubin,Indirect 0.2 mg/dL (0.0-0.9); Bilirubin,Total 0.4 mg/dl (0.2-1.3); Bilirubin,Unconjugated 0.2 mg/dL (0.0-1.1)
[2023-10-27 08:16] LABS: Troponin I < 0.01 ng/ml (0.00-0.034)
[2023-10-27 08:48] LABS: Thyroid Stimulating Hormone 1.56 uIU/mL (0.465-4.68)
[2023-10-27] MEDS: SACUBITRIL/VALSARTAN 24-26MG TABLET 1 EACH PO ×2 (09:00→21:28)
[2023-10-27] MEDS: ASPIRIN EC 81MG TABLET 81 MG PO (09:00)
[2023-10-27] MEDS: predniSONE 20MG TAB 40 MG PO (09:00)
[2023-10-27] MEDS: AMIODARONE 200MG TABLET 400 MG PO (09:00)
[2023-10-27] MEDS: EMPAGLIFLOZIN 10MG TABLET 10 MG PO (09:01)
[2023-10-27] MEDS: FUROSEMIDE 40MG/4ML VIAL 40 MG IV ×2 (09:01→15:02)
[2023-10-27] MEDS: APIXABAN 5MG TABLET 5 MG PO ×2 (09:01→21:28)
[2023-10-27] MEDS: LIDOCAINE 5% TRANSDERMAL PATCH 1 EACH TP (09:01)
[2023-10-27] MEDS: METOPROLOL SUCCINATE XL 100MG TABLET 100 MG PO ×2 (09:01→21:28)
[2023-10-27] MEDS: PANTOPRAZOLE 40MG TABLET 40 MG PO (09:01)
[2023-10-27] MEDS: CITALOPRAM 10MG TABLET 10 MG PO (09:01)
[2023-10-27] MEDS: SPIRONOLACTONE 25MG TABLET 25 MG PO (09:01)
[2023-10-27 09:07] LABS: Alanine Aminotransferase 52 U/L (12-78)
[2023-10-27] MEDS: ONDANSETRON 4MG/2ML VIAL 4 MG IV (09:12)
--- NOTE | 2023-10-27 09:43 | EXP.PHA.PN ---
Subjective *Date: 10/27/23 *Time: 09:43 Medical Exam Vital signs and Labs for Last 24 Hours: Vital Signs Temp Pulse Pulse Resp BP Pulse Ox O2 Del Method 10/27/23 08:00 90 10/27/23 07:39 96.8 F L 58 L 17 100/69 L 96 10/27/23 06:55 Nasal Cannula 10/27/23 06:31 95 Nasal Cannula 10/27/23 05:00 Nasal Cannula 10/27/23 04:00 97.5 F L 42 L 18 110/68 95 Nasal Cannula 10/27/23 04:00 100 H 10/27/23 03:00 Nasal Cannula 10/27/23 02:33 77 10/27/23 02:33 76 10/27/23 01:00 Nasal Cannula 10/27/23 00:00 97.7 F 64 18 105/70 L 94 L Nasal Cannula 10/27/23 00:00 100 H 10/26/23 23:00 Nasal Cannula 10/26/23 21:00 Nasal Cannula 10/26/23 20:00 Nasal Cannula 10/26/23 20:00 110 H 10/26/23 20:00 97.4 F L 58 L 18 90/66 L 91 L Nasal Cannula 10/26/23 18:54 89 L Room Air 10/26/23 18:53 Nasal Cannula 10/26/23 18:53 76 10/26/23 18:52 73 10/26/23 18:11 Nasal Cannula 10/26/23 17:00 Nasal Cannula 10/26/23 16:00 98.2 F 45 L 19 99/72 L 94 L Nasal Cannula 10/26/23 16:00 90 10/26/23 16:00 Nasal Cannula 10/26/23 15:00 Nasal Cannula 10/26/23 13:10 70 10/26/23 13:10 70 10/26/23 12:39 Nasal Cannula 10/26/23 12:00 90 10/26/23 12:00 96.1 F L 91 H 14 105/65 L 94 L Nasal Cannula 10/26/23 12:00 84 16 118/56 L 94 L Nasal Cannula 10/26/23 11:00 Nasal Cannula 10/26/23 10:00 96 H 18 94/66 L 94 L Nasal Cannula O2 Flow Rate FiO2 10/27/23 08:00 10/27/23 07:39 10/27/23 06:55 2 10/27/23 06:31 2 10/27/23 05:00 2 10/27/23 04:00 2 10/27/23 04:00 10/27/23 03:00 2 10/27/23 02:33 10/27/23 02:33 10/27/23 01:00 2 10/27/23 00:00 2 10/27/23 00:00 10/26/23 23:00 2 10/26/23 21:00 2 10/26/23 20:00 2 10/26/23 20:00 10/26/23 20:00 2 10/26/23 18:54 10/26/23 18:53 2 28 10/26/23 18:53 10/26/23 18:52 10/26/23 18:11 2 10/26/23 17:00 2 10/26/23 16:00 2 10/26/23 16:00 10/26/23 16:00 2 10/26/23 15:00 2 10/26/23 13:10 10/26/23 13:10 10/26/23 12:39 2 10/26/23 12:00 10/26/23 12:00 2 10/26/23 12:00 2 10/26/23 11:00 2 10/26/23 10:00 2 Intake and Output 10/26/23 10/27/23 10/27/23 23:59 07:59 15:59 Intake Total 420 / 1500 420 / 420 Output Total 0 / 1200 0 / 0 Balance 420 / 300 420 / 420 Intake: Intake, Oral Amount 420 / 1140 420 / 420 Output: Output, Urine Amount 0 / 1200 0 / 0 Other: Number of Voids 0 Number of Unmeasured Voids 1 1 Number of Bowel Movements 1 Weight 72.892 kg Patient Weight 10/27/23 23:59 Weight 72.892 kg Laboratory Results - last 24 hr 10/26/23 14:10: WBC 10.3, RBC 5.48 H, Hgb 15.2, Hct 52.0 H, MCV 94.9, MCH 27.7, MCHC 29.2 L, RDW 16.1, Plt Count 455 H, MPV 7.0 L, Neut % (Auto) 81.2 H, Lymph % (Auto) 11.4, [place] % (Auto) 5.6, Eos % (Auto) 1.6, Baso % (Auto) 0.2, Neut # (Auto) 8.4 H, Lymph # (Auto) 1.2, [place] # (Auto) 0.6, Eos # (Auto) 0.2, Baso # (Auto) 0.0, Sodium 138, Potassium 3.8, Chloride 92 L, Carbon Dioxide 39 H, Anion Gap 10.8, BUN 44 H, Creatinine 1.10 H D, Estimated Creat Clear 63, Estimated GFR 51 L, Est GFR ( Amer) 61 D, Glucose 103 H, Lactate 1.0, Calcium 8.6, Total Bilirubin 0.4, Direct Bilirubin 0.3, Conjugated Bilirubin 0.0, Indirect Bilirubin 0.1, Unconjugated Bilirubin 0.1, AST 68 H D, ALT 65, Alkaline Phosphatase 94, Troponin I < 0.01, Total Protein 7.5, Albumin 4.1 10/27/23 06:02: WBC 10.2, RBC 5.38, Hgb 14.8, Hct 50.6 H, MCV 94.0, MCH 27.5, MCHC 29.3 L, RDW 16.2, Plt Count 459 H, MPV 7.2 L, Neut % (Auto) 84.9 H, Lymph % (Auto) 10.2, [place] % (Auto) 3.7, Eos % (Auto) 1.1, Baso % (Auto) 0.2, Neut # (Auto) 8.7 H, Lymph # (Auto) 1.0, [place] # (Auto) 0.4, Eos # (Auto) 0.1, Baso # (Auto) 0.0, Sodium 135 L, Potassium 4.1, Chloride 91 L, Carbon Dioxide 36 H, Anion Gap 12.1, BUN 56 H D, Creatinine 1.30 H, Estimated Creat Clear 53, Estimated GFR 42 L, Est GFR ( Amer) 51 L, Glucose 124 H D, Lactate 1.1, Calcium 8.7, Total Bilirubin 0.4 10/27/23 06:02: Total Bilirubin 0.4, Direct Bilirubin 0.2, Conjugated Bilirubin 0.0, Indirect Bilirubin 0.2, Unconjugated Bilirubin 0.2, AST 37 H D 10/27/23 06:02: AST 36, ALT 52 10/27/23 06:02: ALT 52, Alkaline Phosphatase 79 10/27/23 06:02: Alkaline Phosphatase 79, Troponin I < 0.01, Total Protein 6.9 10/27/23 06:02: Total Protein 7.0, Albumin 3.6 D 10/27/23 06:02: Albumin 3.6, Globulin 3.3 H, Albumin/Globulin Ratio 1.1, TSH 1.56 D, Free T4 1.03 I & O for Labs for Last 24 Hours: Intake & Output 10/24/23 10/25/23 10/26/23 10/27/23 23:59 23:59 23:59 23:59 Intake Total 2611 / 2833 1389.18 / 1389.18 1320 / 1500 420 / 420 Output Total 5700 / 5700 4375 / 4375 1200 / 1200 0 / 0 Balance -3089 / -2867 -2985.82 / -2985.82 120 / 300 420 / 420 Weight 69.116 kg 69.1 kg 73.284 kg 72.892 kg Microbiology Reports for the Last 24 Hours: Microbiology 10/23/23 13:18 Sputum - Expectorated Sputum Gram Stain - Final 10/23/23 13:18 Sputum - Expectorated Sputum Sputum Culture - Final Stenotrophomonas maltophilia 10/22/23 12:27 Blood Blood Culture - Preliminary NO GROWTH AFTER 4 DAYS 10/22/23 11:30 Blood Blood Culture - Preliminary NO GROWTH AFTER 4 DAYS The patient's infection will respond to the chosen ABx?: No (SPUTUM = S. MALTOPHILIA, PT ON AZITHROMYCIN WHICH WON'T COVER.) Is the patient receiving the right drug, dose, and route?: No Could a more targeted ABx be ordered?: Yes (LEVAQUIN OR BACTRIM) How long ABx needed (days)?: 5
--- NOTE | 2023-10-27 09:49 | EXP.PULM.CON ---
History of Present Illness History of present illness: Ms. Buchanan is a 62-year-old female with reported history of COPD chronic hypoxic respiratory failure heart failure with reduced EF atrial flutter CAD hypertension presented to the ER on 10/22/2019 for worsening respiratory status cough and productive phlegm. Patient since and has been managed for atrial flutter with RVR, CHF exacerbation and possible COPD exacerbation/community-acquired pneumonia. Receiving ceftriaxone and azithromycin along with prednisone and nebulization therapies. Cardiology following. Patient noted to have worsening respiratory distress yesterday with wheezing and pulmonary was consulted for further evaluation and management. [facility] Disclaimer: The information contained in this section may have been updated after the patient was seen, as this information can be updated by other users. Medical History (Updated 10/27/23 @ 12:28 by Dea Hargrove APRN) HFrEF (heart failure with reduced ejection fraction) Atrial flutter with rapid ventricular response Elevated liver enzymes Smoking greater than 30 pack years Dyspnea on exertion Pulmonary emphysema Dyspnea Afib Sinus bradycardia Chronic, continuous use of opioids Right rotator cuff tear Hypothyroidism Atrial fibrillation/flutter Pulmonary hypertension Hepatitis C Tobacco dependence (HFpEF) heart failure with preserved ejection fraction Hyperlipidemia Hypertension COPD (chronic obstructive pulmonary disease) Surgical History History of hysterectomy History of surgery on right wrist History of mandibular surgery History of left heart catheterization History of cholecystectomy S/P rotator cuff repair H/O splenectomy History of cardioversion Family History Mother Stroke Father Coronary artery disease Social History Smoking Status: Current some day smoker tobacco type: cigarettes packs per day: 1 years smoked: 40 second hand exposure: Yes alcohol intake: never substance use type: denies use current occupational status: unemployed and disabled Travel in the last 8 weeks: Inside the [place] household members: none housing: house lives independently: Yes marital status: single number of children: 3 current occupation: Disabled caffeine: Yes Review of Systems Constitutional Constitutional: Reports fatigue and Reports weakness Eyes Eyes: Denies eye discharge, Denies dry eyes, Denies irritation and Denies itchy eyes ENT Ears, Nose, Mouth, and Throat: Denies epistaxis, Denies facial pain, Denies lip swelling and Denies throat swelling *Cardiovascular Cardiovascular: Reports dyspnea and Reports dyspnea on exertion *Respiratory Respiratory: Denies change in phlegm color, Reports chest congestion, Reports cough, Reports dyspnea, Reports dyspnea on exertion, Denies excessive phlegm production and Reports wheezing *Gastrointestinal Gastrointestinal: Denies abdominal pain, Denies belching and Denies cramping *Musculoskeletal Musculoskeletal: Reports back pain, Reports myalgias and Reports other (No small joint swelling or Pain) *Neurologic Neurologic: Reports system reviewed and no additional complaints, except as documented and Reports weakness Psychiatric Psychiatric: Denies homicidal ideation and Denies suicidal ideation Endocrine Endocrine: Reports fatigue and Denies heat intolerance Hematologic/Lymphatic Hematologic/Lymphatic: Denies easy bleeding and Denies lymphadenopathy Allergic/Immunologic Allergic/Immunologic: Denies itchy eyes, Denies lip swelling, Denies throat swelling and Reports wheezing Pulmonology Exam Inpatient Vital signs and Labs for Last 24 Hours: Temp Pulse Resp BP Pulse Ox O2 Del Method O2 Flow Rate 96.8 F L 90 17 100/69 L 96 Nasal Cannula 2 10/27/23 07:39 10/27/23 08:00 10/27/23 07:39 10/27/23 07:39 10/27/23 07:39 10/27/23 06:55 10/27/23 06:55 FiO2 28 10/26/23 18:53 Laboratory Results - last 24 hr 10/26/23 14:10: WBC 10.3, RBC 5.48 H, Hgb 15.2, Hct 52.0 H, MCV 94.9, MCH 27.7, MCHC 29.2 L, RDW 16.1, Plt Count 455 H, MPV 7.0 L, Neut % (Auto) 81.2 H, Lymph % (Auto) 11.4, [place] % (Auto) 5.6, Eos % (Auto) 1.6, Baso % (Auto) 0.2, Neut # (Auto) 8.4 H, Lymph # (Auto) 1.2, [place] # (Auto) 0.6, Eos # (Auto) 0.2, Baso # (Auto) 0.0, Sodium 138, Potassium 3.8, Chloride 92 L, Carbon Dioxide 39 H, Anion Gap 10.8, BUN 44 H, Creatinine 1.10 H D, Estimated Creat Clear 63, Estimated GFR 51 L, Est GFR ( Amer) 61 D, Glucose 103 H, Lactate 1.0, Calcium 8.6, Total Bilirubin 0.4, Direct Bilirubin 0.3, Conjugated Bilirubin 0.0, Indirect Bilirubin 0.1, Unconjugated Bilirubin 0.1, AST 68 H D, ALT 65, Alkaline Phosphatase 94, Troponin I < 0.01, Total Protein 7.5, Albumin 4.1 10/27/23 06:02: WBC 10.2, RBC 5.38, Hgb 14.8, Hct 50.6 H, MCV 94.0, MCH 27.5, MCHC 29.3 L, RDW 16.2, Plt Count 459 H, MPV 7.2 L, Neut % (Auto) 84.9 H, Lymph % (Auto) 10.2, [place] % (Auto) 3.7, Eos % (Auto) 1.1, Baso % (Auto) 0.2, Neut # (Auto) 8.7 H, Lymph # (Auto) 1.0, [place] # (Auto) 0.4, Eos # (Auto) 0.1, Baso # (Auto) 0.0, Sodium 135 L, Potassium 4.1, Chloride 91 L, Carbon Dioxide 36 H, Anion Gap 12.1, BUN 56 H D, Creatinine 1.30 H, Estimated Creat Clear 53, Estimated GFR 42 L, Est GFR ( Amer) 51 L, Glucose 124 H D, Lactate 1.1, Calcium 8.7, Total Bilirubin 0.4 10/27/23 06:02: Total Bilirubin 0.4, Direct Bilirubin 0.2, Conjugated Bilirubin 0.0, Indirect Bilirubin 0.2, Unconjugated Bilirubin 0.2, AST 37 H D 10/27/23 06:02: AST 36, ALT 52 10/27/23 06:02: ALT 52, Alkaline Phosphatase 79 10/27/23 06:02: Alkaline Phosphatase 79, Troponin I < 0.01, Total Protein 6.9 10/27/23 06:02: Total Protein 7.0, Albumin 3.6 D 10/27/23 06:02: Albumin 3.6, Globulin 3.3 H, Albumin/Globulin Ratio 1.1, TSH 1.56 D, Free T4 1.03 I & O for Labs for Last 24 Hours: Intake & Output 10/24/23 10/25/23 10/26/2324 23:59 23:59 23:59 23:59 Intake Total 2611 / 2833 1389.18 / 1389.18 1320 / 1500 420 / 420 Output Total 5700 / 5700 4375 / 4375 1200 / 1200 0 / 0 Balance -3089 / -2867 -2985.82 / -2985.82 120 / 300 420 / 420 Weight 152 lb 6 oz 152 lb 5.431 oz 161 lb 9 oz 160 lb 11.2 oz Microbiology Reports for the Last 24 Hours: Microbiology 10/23/23 13:18 Sputum - Expectorated Sputum Gram Stain - Final 10/23/23 13:18 Sputum - Expectorated Sputum Sputum Culture - Final Stenotrophomonas maltophilia 10/22/23 12:27 Blood Blood Culture - Preliminary NO GROWTH AFTER 4 DAYS 10/22/23 11:30 Blood Blood Culture - Preliminary NO GROWTH AFTER 4 DAYS Constitutional: Present moderate distress Head: Present normocephalic and atraumatic ENT: Present normal exam, normal oropharynx and mucous membranes moist Neck: Present normal inspection and full ROM Respiratory: Present prolonged expiratory phase, respiratory distress, wheezes and able to speak in complete sentences Cardiac: Present S1/S2, Tachycardia and radial pulses present GI: Present soft and distention; Absent tenderness or guarding Rectal (female): Present deferred (female): Present deferred Skin: Present intact; Absent cyanosis or jaundice Neuro: Present alert, awake and oriented x 3 Extremities: Present normal inspection; Absent clubbing or cyanosis Psychiatric: Present normal affect and cooperative Meds Home Medications and Allergies Home Medications ?Medication ?Instructions ?Recorded ?Confirmed ?Type albuterol sulfate 90 mcg/actuation 1 puff inhalation Q4HP PRN 01/10/21 10/22/23 History aerosol inhaler Shortness Of Breath budesonide-formoterol HFA 160 2 puffs inhalation BID 01/10/21 10/22/23 History mcg-4.5 mcg/actuation aerosol inhaler pantoprazole 40 mg tablet,delayed 40 mg PO DAILY GERD #90 tabs 03/04/21 10/22/23 Rx release citalopram 10 mg tablet 10 mg PO DAILY 03/01/22 10/22/23 History diclofenac sodium 1 % topical gel 1 ea topical QIDP PRN Mild Pain 03/01/22 10/22/23 History (Scale Score 1-4) levothyroxine 50 mcg tablet 50 mcg PO DAILY 03/01/22 10/22/23 History aspirin 81 mg tablet,delayed 81 mg PO DAILY #100 tabs 01/28/23 10/22/23 Rx release atorvastatin 40 mg tablet 40 mg PO HS Cholesterol #30 tabs 01/28/23 10/22/23 Rx famotidine 40 mg tablet 40 mg PO BID acid reflux #60 tabs 01/28/23 10/22/23 Rx diclofenac sodium 75 mg 75 mg PO BID 04/13/23 10/23/23 History tablet,delayed release lidocaine 5 % topical patch 1 patch topical DAILY 04/13/23 10/22/23 History (Lidoderm) empagliflozin 10 mg tablet 10 mg PO DAILY 07/19/23 10/22/23 History (Jardiance) furosemide 20 mg tablet 60 mg (3 x 20 mg) PO DAILY 30 days 07/27/23 10/22/23 Rx #90 tabs nicotine 14 mg/24 hr daily 1 patch transdermal DAILY #28 ea 07/27/23 10/22/23 Rx transdermal patch rivaroxaban 20 mg tablet (Xarelto) 20 mg PO QPMWITHMEAL 10/23/23 10/23/23 History azithromycin 250 mg tablet 500 mg (2 x 250 mg) PO DAILY 2 10/25/23 Rx days #4 tabs cefdinir 300 mg capsule 300 mg PO BID 3 days #6 caps 10/25/23 Rx prednisone 20 mg tablet 40 mg (2 x 20 mg) PO DAILY 2 days 10/25/23 Rx #4 tabs New Prescriptions to Start Prescriptions: Salazar Ochoa cefdinir Salazar Arreola prednisone Salazar Arreola Allergies Allergy/AdvReac Type Severity Reaction Status Date / Time codeine Allergy Mild Nausea Verified 08/11/23 07:57 penicillin G [PENICILLIN G] Allergy Mild I-RASH/NV Verified 08/11/23 07:57 acetaminophen [ACETAMINOPHEN] AdvReac Mild NOT Verified 08/11/23 07:57 ALLERGIC. NEED TO WATCH DUE TO LIVER Results Laboratory Findings 10/27/23 06:02 10/27/23 06:02 Abnormal lab findings: Abnormal Labs 10/22/23 10/22/23 10/22/23 11:17 11:30 14:16 WBC 12.9 H RBC Hgb Hct MCHC 29.1 L Plt Count MPV Neut % (Auto) 85.1 H Lymph % (Auto) 8.6 L [place] % (Auto) Neut # (Auto) 11.0 H Lymph # (Auto) Neutrophils % (Manual) 85 H Lymphocytes % (Manual) VBG pH 7.42 H VBG pCO2 56.3 H VBG pO2 128.0 H 53.4 H VBG Total CO2 30.9 H VBG O2 Saturation 98.9 H 86.2 H VBG Base Excess 3.3 H Sodium Chloride 110 H Carbon Dioxide Anion Gap BUN Creatinine 0.50 L Estimated GFR Est GFR ( Amer) Glucose 109 H Hemoglobin A1c AST NT-Pro-B Natriuret Pep 3140 H Globulin LDL Cholesterol Direct HDL Cholesterol Entero/Rhino (PCR) 10/22/23 10/23/23 10/24/23 22:30 06:22 07:08 WBC RBC 4.14 L Hgb 11.6 L Hct MCHC 29.8 L Plt Count MPV Neut % (Auto) 89.8 H Lymph % (Auto) 6.8 L [place] % (Auto) Neut # (Auto) 8.2 H Lymph # (Auto) 0.6 L Neutrophils % (Manual) 89 H Lymphocytes % (Manual) 9 L VBG pH VBG pCO2 VBG pO2 VBG Total CO2 VBG O2 Saturation VBG Base Excess Sodium Chloride Carbon Dioxide 38 H Anion Gap 2.9 L BUN 24 H D 37 H D Creatinine 1.10 H D Estimated GFR 51 L Est GFR ( Amer) Glucose 152 H D 114 H Hemoglobin A1c 6.2 H AST NT-Pro-B Natriuret Pep Globulin LDL Cholesterol Direct 75.23 L HDL Cholesterol 64 H Entero/Rhino (PCR) Detected A 10/25/23 10/26/23 10/26/23 05:46 05:46 08:00 WBC RBC Hgb Hct 49.3 H MCHC 29.5 L 30.0 L Plt Count 441 H MPV Neut % (Auto) Lymph % (Auto) [place] % (Auto) 10.7 H Neut # (Auto) Lymph # (Auto) Neutrophils % (Manual) Lymphocytes % (Manual) VBG pH VBG pCO2 VBG pO2 VBG Total CO2 VBG O2 Saturation VBG Base Excess Sodium Chloride 93 L 94 L Carbon Dioxide 36 H 38 H Anion Gap BUN 43 H 43 H Creatinine Estimated GFR 57 L Est GFR ( Amer) Glucose 116 H Hemoglobin A1c AST 45 H D 45 H NT-Pro-B Natriuret Pep Globulin LDL Cholesterol Direct HDL Cholesterol Entero/Rhino (PCR) 10/26/23 10/27/23 14:10 06:02 WBC RBC 5.48 H Hgb Hct 52.0 H 50.6 H MCHC 29.2 L 29.3 L Plt Count 455 H 459 H MPV 7.0 L 7.2 L Neut % (Auto) 81.2 H 84.9 H Lymph % (Auto) [place] % (Auto) Neut # (Auto) 8.4 H 8.7 H Lymph # (Auto) Neutrophils % (Manual) Lymphocytes % (Manual) VBG pH VBG pCO2 VBG pO2 VBG Total CO2 VBG O2 Saturation VBG Base Excess Sodium 135 L Chloride 92 L 91 L Carbon Dioxide 39 H 36 H Anion Gap BUN 44 H 56 H D Creatinine 1.10 H D 1.30 H Estimated GFR 51 L 42 L Est GFR ( Amer) 51 L Glucose 103 H 124 H D Hemoglobin A1c AST 68 H D 37 H D NT-Pro-B Natriuret Pep Globulin 3.3 H LDL Cholesterol Direct HDL Cholesterol Entero/Rhino (PCR) Assessment and Plan *Assessment and plan (1) COPD exacerbation: Status: Acute Category: Medical Code(s): J44.1 - Chronic obstructive pulmonary disease with (acute) exacerbation (2) PNA (pneumonia): Status: Acute Qualifiers: Laterality: unspecified laterality Lung location: unspecified part of lung Pneumonia type: due to unspecified organism Qualified Code(s): J18.9 - Pneumonia, unspecified organism Category: Medical Code(s): J18.9 - Pneumonia, unspecified organism Plan Ms. Buchanan is a 62-year-old female with reported history of COPD chronic hypoxic respiratory failure heart failure with reduced EF atrial flutter CAD hypertension presented to the ER on 10/22/2019 for worsening respiratory status cough and productive phlegm. Patient since and has been managed for atrial flutter with RVR, CHF exacerbation and possible COPD exacerbation/community-acquired pneumonia. Receiving ceftriaxone and azithromycin along with prednisone and nebulization therapies. Cardiology following. Patient noted to have worsening respiratory distress yesterday with wheezing and pulmonary was consulted for further evaluation and management. CTA upon admission evidence of pulmonary embolism but no dense consolidation with airspace changes. No pleural effusions. Concerning right upper lobe nodule/scarring. Afebrile. Hemodynamically stable with no evidence of leukocytosis. Stable oxygen requirements. Sputum cultures from admission Stenotrophomonas maltophilia. Patient received ceftriaxone azithromycin. Labs revealed, acute kidney injury with worsening BUN,creatinine and GFR from yesterday, primary team following. On examination this morning patient does not appear to be in any respiratory distress. Mild expiratory wheezing noted on auscultation. On home baseline 2 L nasal abdomen supplementation. Plan: F/U CXR Recommend Bactrim DS BID really dosed to complete a total of 14-day course Continue Trelegy 100 inhaler along with DuoNebs QID PRN Follow in pulmonary clinic 5 to 7 days post discharge Recommend to complete a total of 5-day course of prednisone from admission #Thank you for involving pulmonary in this patient care. Will continue to follow
--- NOTE | 2023-10-27 10:02 | SW/DCPLANNER ---
I received a consult for this patient regarding no running water at home. PT/OT evaluated patient yesterday and recommended that patient return home w/ home health services. Patient stated that she resides at home alone and family checks on her often. I did explain to patient that due to location and insurance there is not a home health agency that would be able to accept. I also reviewed [facility] Resource List w/ this patient regarding resources for utilities at home. Patient stated that she will have transportation home once medically stable for discharge. Discharge date is unknown at this time.
--- NOTE | 2023-10-27 11:19 | CA_ITS ---
APPROVED REPORT EXAM: Limited 2D and color flow Echocardiogram Office Technologist: Eleanor Unger ABRAN Ht: 5 ft 11 in Wt: 160lbs BSA: 1.92 BP: 100/69 mmHg Indications: A-FLUTTER WITH CARDIOVERSION,COPD,PHTN,CAD,HTN,HLD,HFrEF Procedure After obtaining informed consent, patient underwent transesophageal echo in the [facility]. Type of Sedation : MAC Sedation start time: 16:05 Case end Time: 16:10 Transesophageal probe was inserted and advanced into esophagus without difficulty by Dr. Irvin Ruano. The ALLA was performed without complications. Throughout the procedure, the blood pressure, pulse oximetry, cardiac rhythm, and rate were monitored. The patient tolerated the procedure without adverse effects. Recovery from conscious sedation was uneventful and vital signs were stable. Other Information Study Quality: Fair Conclusion This is a limited ALLA to evaluate for YONATAN or YONATAN thrombus in the setting of planned DCCV for atrial flutter. This ALLA demonstrates no evidence of LA or YONATAN thrombus. There is normal color Doppler flow in the YONATAN. Peak velocity 45 cm/s. Once ALLA showed no evidence of thrombus, the patient underwent DCCV with 150 J, after which she converted from atrial flutter to normal sinus rhythm. Overall, the procedure was uncomplicated. Post procedurally, during recovery, the patient noted epigastric pain. At the time, she underwent ECG, showing no evidence of ischemic changes. In the setting of recent ALLA, she also underwent CT chest to evaluate for any complications. CT chest demonstrated no evidence of acute cardiopulmonary findings or ALLA related complications. Subsequently, she was managed conservatively, and her symptoms were monitored closely. Electronically signed by : Lise Ruano MD 10/28/2023 00:28:28
--- NOTE | 2023-10-27 12:22 | P.PN_ITS ---
Subjective Subjective Date: 10/27/23 Time: 09:00 Principal diagnosis: HFrEF, atrial flutter with RVR Interval history: This is a 62-year-old white female who presented to the emergency department complaints of shortness of breath and chest pain. The patient is currently being treated for atrial flutter with RVR and acute HFrEF. She still states that she just does not feel well. She states that she feels very tired. One of her medications is making her nauseous. She states that every morning when she gets her a.m. medications she starts to feel really sick to her stomach and feels like she is going to have to vomit all day long. She states that she did not feel like this prior to coming to the hospital. She has not had any episodes of vomiting. She is still having a lot of shortness of breath and an associated cough. The burning in her chest has resolved. She denies any lower extremity edema today. She denies any fever, chills or diarrhea. Exam Data for Last 24 hours Vital signs and Labs for Last 24 Hours: Temp Pulse Resp BP Pulse Ox O2 Del Method O2 Flow Rate 98.6 F 78 16 104/65 L 95 Nasal Cannula 2 10/27/23 11:49 10/27/23 11:49 10/27/23 11:49 10/27/23 11:49 10/27/23 11:49 10/27/23 11:49 10/27/23 11:49 FiO2 28 10/26/23 18:53 Laboratory Results - last 24 hr 10/26/23 14:10: WBC 10.3, RBC 5.48 H, Hgb 15.2, Hct 52.0 H, MCV 94.9, MCH 27.7, MCHC 29.2 L, RDW 16.1, Plt Count 455 H, MPV 7.0 L, Neut % (Auto) 81.2 H, Lymph % (Auto) 11.4, [place] % (Auto) 5.6, Eos % (Auto) 1.6, Baso % (Auto) 0.2, Neut # (Auto) 8.4 H, Lymph # (Auto) 1.2, [place] # (Auto) 0.6, Eos # (Auto) 0.2, Baso # (Auto) 0.0, Sodium 138, Potassium 3.8, Chloride 92 L, Carbon Dioxide 39 H, Anion Gap 10.8, BUN 44 H, Creatinine 1.10 H D, Estimated Creat Clear 63, Estimated GFR 51 L, Est GFR ( Amer) 61 D, Glucose 103 H, Lactate 1.0, Calcium 8.6, Total Bilirubin 0.4, Direct Bilirubin 0.3, Conjugated Bilirubin 0.0, Indirect Bilirubin 0.1, Unconjugated Bilirubin 0.1, AST 68 H D, ALT 65, Alkaline Phosphatase 94, Troponin I < 0.01, Total Protein 7.5, Albumin 4.1 10/27/23 06:02: WBC 10.2, RBC 5.38, Hgb 14.8, Hct 50.6 H, MCV 94.0, MCH 27.5, MCHC 29.3 L, RDW 16.2, Plt Count 459 H, MPV 7.2 L, Neut % (Auto) 84.9 H, Lymph % (Auto) 10.2, [place] % (Auto) 3.7, Eos % (Auto) 1.1, Baso % (Auto) 0.2, Neut # (Auto) 8.7 H, Lymph # (Auto) 1.0, [place] # (Auto) 0.4, Eos # (Auto) 0.1, Baso # (Auto) 0.0, Sodium 135 L, Potassium 4.1, Chloride 91 L, Carbon Dioxide 36 H, Anion Gap 12.1, BUN 56 H D, Creatinine 1.30 H, Estimated Creat Clear 53, Estimated GFR 42 L, Est GFR ( Amer) 51 L, Glucose 124 H D, Lactate 1.1, Calcium 8.7, Total Bilirubin 0.4 10/27/23 06:02: Total Bilirubin 0.4, Direct Bilirubin 0.2, Conjugated Bilirubin 0.0, Indirect Bilirubin 0.2, Unconjugated Bilirubin 0.2, AST 37 H D 10/27/23 06:02: AST 36, ALT 52 10/27/23 06:02: ALT 52, Alkaline Phosphatase 79 10/27/23 06:02: Alkaline Phosphatase 79, Troponin I < 0.01, Total Protein 6.9 10/27/23 06:02: Total Protein 7.0, Albumin 3.6 D 10/27/23 06:02: Albumin 3.6, Globulin 3.3 H, Albumin/Globulin Ratio 1.1, TSH 1.56 D, Free T4 1.03 I & O for Last 24 hours: Intake & Output 10/24/23 10/25/23 10/26/23 10/27/23 23:59 23:59 23:59 23:59 Intake Total 2611 / 2833 1389.18 / 1389.18 1320 / 1500 420 / 420 Output Total 5700 / 5700 4375 / 4375 1200 / 1200 0 / 0 Balance -3089 / -2867 -2985.82 / -2985.82 120 / 300 420 / 420 Weight 152 lb 6 oz 152 lb 5.431 oz 161 lb 9 oz 160 lb 11.2 oz Microbiology Reports for the Last 24 Hours: Microbiology 10/22/23 11:30 Blood Blood Culture - Final NO GROWTH AFTER 5 DAYS 10/23/23 13:18 Sputum - Expectorated Sputum Gram Stain - Final 10/23/23 13:18 Sputum - Expectorated Sputum Sputum Culture - Final Stenotrophomonas maltophilia 10/22/23 12:27 Blood Blood Culture - Preliminary NO GROWTH AFTER 4 DAYS Constitutional Constitutional: no acute distress and average body habitus *Routine HEENT Exam Head: Present normocephalic and atraumatic ENT: Present mucous membranes moist *Routine Neck Exam Neck: Present supple, full ROM and normal carotid upstroke; Absent JVD, carotid bruit or lymphadenopathy *Routine Respiratory Exam Respiratory: Present CTA bilaterally, normal respiratory effort, able to speak in complete sentences and symmetric chest movement *Routine Cardiovascular Exam Cardiovascular: Present Normal S1, Normal S2 and irregular rhythm; Absent murmur or gallop *Routine Abdominal Exam Abdominal: Present soft and normoactive bowel sounds; Absent tenderness, distended or organomegaly *Routine Extremities Exam Extremities: Present full ROM, pulses intact and normal capillary refill; Absent cyanosis, clubbing or edema *Routine Skin Exam Skin: Present intact and warm; Absent erythema *Routine Neurological Exam Neurological: Present alert, oriented X3 and CN II-XII intact; Absent sensory deficit or motor deficit Routine Psychiatric Exam Psychiatric: Present normal affect Progress Note: A&P Assessment and plan (1) HFrEF (heart failure with reduced ejection fraction): Status: Acute (2) Atrial flutter: Status: Acute (3) PNA (pneumonia): Status: Acute (4) Atrial flutter with rapid ventricular response: Status: Acute (5) COPD exacerbation: Status: Acute (6) Smoking greater than 30 pack years: Status: Acute (7) Dyspnea on exertion: Status: Acute (8) Hypothyroidism: Status: Chronic (9) Hypertension: Status: Chronic (10) Hyperlipidemia: Status: Chronic Assessment and Plan Assessment and Plan for All Diagnoses:: Plan: 1. The patient was admitted to the hospital with atrial fibrillation/flutter with RVR. She was started on amiodarone drip which did rate control her. The amiodarone drip was stopped yesterday and she remains on oral amiodarone. She remains in atrial flutter this morning with rate control. She states that her medications are making her nauseated since being in the hospital. This is most likely from the amiodarone. Stop amiodarone today. 2. Will proceed with ALLA and cardioversion today to get the patient back in sinus rhythm. 3. NPO now. 4. The patient has been educated on the risks and benefits of proceeding with ALLA and cardioversion. The patient has verbalized understanding and is agreeable in proceeding with the procedure. 5. The patient is on long-term anticoagulation with Eliquis. She denies any bleeding. 6. The patient does have acute exacerbation of HFrEF. Her ejection fraction is down to 20%. The patient is at increased risk of sudden cardiac due to her severe LV dysfunction. A LifeVest has been ordered and is approved. The patient will be fitted for a LifeVest prior to discharge home. 7. The patient is being diuresed with IV Lasix. Accurate intake and output was not recorded over night for this patient. Strict I&Os. 8. The patient is not a candidate for an AICD yet because she keeps going into atrial fibrillation/flutter with RVR which is most likely causing her to go into heart failure. 9. Consider an ablation on an outpatient basis. 10. Continue metoprolol for HFrEF and better heart rate control. 11. Continue spironolactone, Entresto and Jardiance for HFrEF. 12. Her blood pressure is well-controlled. 13. Her LDL goal is less than 100. Her LDL is 75. She is on a statin. 14. The patient has a history of normal coronary arteries. Her troponins were negative. No plans for invasive left cardiac catheterization at this time. Burning in chest resolved with restarting her PPIs. 15. Creatnine did bump to 1.3 today. continue IV lasix today with plant to convert to oral lasix tomorrow. repeat BMP in the morning. 16. Further recommendations will be made pending the patient's response to treatment following ALLA/ cardioversion today. Thank you for the opportunity to help participate in the care of this patient. All recommendations and orders are per Dr. Ruano.
[2023-10-27] MEDS: levoFLOXacin 750 MG TABLET PO (12:29)
--- NOTE | 2023-10-27 12:35 | XR_ITS ---
FINAL REPORT CLINICAL HISTORY: PNM COMPARISON: 10/22/2023 FINDINGS: The heart size is mildly enlarged. The mediastinum is normal. There are mild chronic changes at the lung bases. There are no pleural effusions. There is no pneumothorax. There is no osseous abnormality. A right shoulder prosthesis is identified. IMPRESSION: No acute cardiopulmonary process Reviewed, Interpreted and Dictated by Alvaro Lomax MD Transcribed by Kendy Hernandez Authenticated and [facility]
--- NOTE | 2023-10-27 13:51 | EXP.PN ---
Subjective *Date: 10/27/23 *Time: 13:51 Interval history: Patient was lying in bed this morning. She states she continues to feel a better this morning. However, she did note to cardiology team that she is having nausea after starting amiodarone. They will discontinue amiodarone and proceed with cardioversion for a flutter. Denies chest pain, shortness of breath, abdominal pain. Exam Data for Last 24 hours Vital signs and Labs for Last 24 Hours: Temp Pulse Resp BP Pulse Ox O2 Del Method O2 Flow Rate 98.6 F 95 H 16 104/65 L 95 Nasal Cannula 2 10/27/23 11:49 10/27/23 12:00 10/27/23 11:49 10/27/23 11:49 10/27/23 11:49 10/27/23 13:00 10/27/23 13:00 FiO2 28 10/26/23 18:53 Laboratory Results - last 24 hr 10/26/23 14:10: WBC 10.3, RBC 5.48 H, Hgb 15.2, Hct 52.0 H, MCV 94.9, MCH 27.7, MCHC 29.2 L, RDW 16.1, Plt Count 455 H, MPV 7.0 L, Neut % (Auto) 81.2 H, Lymph % (Auto) 11.4, [place] % (Auto) 5.6, Eos % (Auto) 1.6, Baso % (Auto) 0.2, Neut # (Auto) 8.4 H, Lymph # (Auto) 1.2, [place] # (Auto) 0.6, Eos # (Auto) 0.2, Baso # (Auto) 0.0, Sodium 138, Potassium 3.8, Chloride 92 L, Carbon Dioxide 39 H, Anion Gap 10.8, BUN 44 H, Creatinine 1.10 H D, Estimated Creat Clear 63, Estimated GFR 51 L, Est GFR ( Amer) 61 D, Glucose 103 H, Lactate 1.0, Calcium 8.6, Total Bilirubin 0.4, Direct Bilirubin 0.3, Conjugated Bilirubin 0.0, Indirect Bilirubin 0.1, Unconjugated Bilirubin 0.1, AST 68 H D, ALT 65, Alkaline Phosphatase 94, Troponin I < 0.01, Total Protein 7.5, Albumin 4.1 10/27/23 06:02: WBC 10.2, RBC 5.38, Hgb 14.8, Hct 50.6 H, MCV 94.0, MCH 27.5, MCHC 29.3 L, RDW 16.2, Plt Count 459 H, MPV 7.2 L, Neut % (Auto) 84.9 H, Lymph % (Auto) 10.2, [place] % (Auto) 3.7, Eos % (Auto) 1.1, Baso % (Auto) 0.2, Neut # (Auto) 8.7 H, Lymph # (Auto) 1.0, [place] # (Auto) 0.4, Eos # (Auto) 0.1, Baso # (Auto) 0.0, Sodium 135 L, Potassium 4.1, Chloride 91 L, Carbon Dioxide 36 H, Anion Gap 12.1, BUN 56 H D, Creatinine 1.30 H, Estimated Creat Clear 53, Estimated GFR 42 L, Est GFR ( Amer) 51 L, Glucose 124 H D, Lactate 1.1, Calcium 8.7, Total Bilirubin 0.4 10/27/23 06:02: Total Bilirubin 0.4, Direct Bilirubin 0.2, Conjugated Bilirubin 0.0, Indirect Bilirubin 0.2, Unconjugated Bilirubin 0.2, AST 37 H D 10/27/23 06:02: AST 36, ALT 52 10/27/23 06:02: ALT 52, Alkaline Phosphatase 79 10/27/23 06:02: Alkaline Phosphatase 79, Troponin I < 0.01, Total Protein 6.9 10/27/23 06:02: Total Protein 7.0, Albumin 3.6 D 10/27/23 06:02: Albumin 3.6, Globulin 3.3 H, Albumin/Globulin Ratio 1.1, TSH 1.56 D, Free T4 1.03 Temp Pulse Resp BP Pulse Ox O2 Del Method O2 Flow Rate 98.6 F 121 H 20 129/99 H 93 L Nasal Cannula 4 10/25/23 11:59 10/25/23 12:00 10/25/23 10:00 10/25/23 10:00 10/25/23 10:00 10/25/23 10:00 10/25/23 10:00 FiO2 32 10/24/23 19:12 Laboratory Results - last 24 hr 10/25/23 05:46: WBC 10.2, RBC 4.48, Hgb 12.4, Hct 41.9, MCV 93.5, MCH 27.6, MCHC 29.5 L, RDW 17.0, Plt Count 441 H, MPV 8.5, Neut % (Auto) 76.4, Lymph % (Auto) 15.1, [place] % (Auto) 8.4, Eos % (Auto) 0.1, Baso % (Auto) 0.1, Neut # (Auto) 7.8, Lymph # (Auto) 1.5, [place] # (Auto) 0.9, Eos # (Auto) 0.0, Baso # (Auto) 0.0, Sodium 137, Potassium 3.9, Chloride 93 L, Carbon Dioxide 36 H, Anion Gap 11.9, BUN 43 H, Creatinine 1.00, Estimated Creat Clear 65, Estimated GFR 57 L, Est GFR ( Amer) 68, Glucose 99, Calcium 8.5, Magnesium 2.0, Total Bilirubin 0.3, AST 45 H D, ALT 39, Alkaline Phosphatase 88, Total Protein 6.7, Albumin 3.6, Globulin 3.1, Albumin/Globulin Ratio 1.2 I & O for Last 24 hours: Intake & Output 10/24/23 10/25/23 10/26/23 10/27/23 23:59 23:59 23:59 23:59 Intake Total 2611 / 2833 1389.18 / 1389.18 1320 / 1500 420 / 420 Output Total 5700 / 5700 4375 / 4375 1200 / 1200 0 / 0 Balance -3089 / -2867 -2985.82 / -2985.82 120 / 300 420 / 420 Weight 69.116 kg 69.1 kg 73.284 kg 72.892 kg Intake & Output 10/22/23 10/23/23 10/24/23 10/25/23 23:59 23:59 23:59 23:59 Intake Total 240 / 240 2441.482 / 2441.482 2611 / 2833 462 / 462 Output Total 400 / 400 1200 / 1200 5700 / 5700 1400 / 1400 Balance -160 / -160 1241.482 / 1241.482 -3089 / -2867 -938 / -938 Weight 153 lb 153 lb 0.013 oz 152 lb 6 oz 152 lb 5.431 oz Microbiology Reports for the Last 24 Hours: Microbiology 10/22/23 12:27 Blood Blood Culture - Final NO GROWTH AFTER 5 DAYS 10/22/23 11:30 Blood Blood Culture - Final NO GROWTH AFTER 5 DAYS 10/23/23 13:18 Sputum - Expectorated Sputum Gram Stain - Final 10/23/23 13:18 Sputum - Expectorated Sputum Sputum Culture - Final Stenotrophomonas maltophilia Microbiology 10/23/23 13:18 Sputum - Expectorated Sputum Gram Stain - Final 10/23/23 13:18 Sputum - Expectorated Sputum Sputum Culture - Preliminary 10/22/23 12:27 Blood Blood Culture - Preliminary NO GROWTH AFTER 48 HOURS 10/22/23 11:30 Blood Blood Culture - Preliminary NO GROWTH AFTER 48 HOURS Constitutional Constitutional: no acute distress and average body habitus *Routine HEENT Exam Head: Present normocephalic and atraumatic ENT: Present mucous membranes moist *Routine Neck Exam Neck: Present supple, full ROM and normal carotid upstroke; Absent JVD, carotid bruit or lymphadenopathy *Routine Respiratory Exam Respiratory: Present prolonged expiratory phase; Absent wheezes Comments: Moderate wheezing bilateral lung ignacio. *Routine Cardiovascular Exam Cardiovascular: Present Normal S1, Normal S2, tachycardia and irregular rhythm; Absent murmur or gallop *Routine Abdominal Exam Abdominal: Present soft and normoactive bowel sounds; Absent tenderness, distended or organomegaly *Routine Extremities Exam Extremities: Present full ROM, pulses intact and normal capillary refill; Absent cyanosis, clubbing or edema *Routine Skin Exam Skin: Present intact and warm; Absent erythema *Routine Neurological Exam Neurological: Present alert, oriented X3 and CN II-XII intact; Absent sensory deficit or motor deficit Routine Psychiatric Exam Psychiatric: Present normal affect Assessment and Plan *Assessment and plan (1) CHF exacerbation: Status: Acute Qualifiers: Heart failure type: systolic Qualified Code(s): I50.23 - Acute on chronic systolic (congestive) heart failure Category: Medical Code(s): I50.9 - Heart failure, unspecified (2) PNA (pneumonia): Status: Acute Qualifiers: Laterality: unspecified laterality Lung location: unspecified part of lung Pneumonia type: due to unspecified organism Qualified Code(s): J18.9 - Pneumonia, unspecified organism Category: Medical Code(s): J18.9 - Pneumonia, unspecified organism (3) Atrial flutter with rapid ventricular response: Status: Acute Category: Medical Code(s): I48.92 - Unspecified atrial flutter (4) COPD exacerbation: Status: Acute Category: Medical Code(s): J44.1 - Chronic obstructive pulmonary disease with (acute) exacerbation (5) Smoking greater than 30 pack years: Status: Acute Category: Social Hx Code(s): F17.210 - Nicotine dependence, cigarettes, uncomplicated (6) Dyspnea on exertion: Status: Acute Category: Medical Code(s): R06.09 - Other forms of dyspnea (7) Hypothyroidism: Status: Chronic Qualifiers: Hypothyroidism type: unspecified Qualified Code(s): E03.9 - Hypothyroidism, unspecified Category: Medical Code(s): E03.9 - Hypothyroidism, unspecified (8) Coronary artery disease: Status: Deleted Qualifiers: Coronary Disease-Associated Artery/Lesion type: [place] artery [place] vs. transplanted heart: [place] heart Associated angina: without angina Qualified Code(s): I25.10 - Atherosclerotic heart disease of [place] coronary artery without angina pectoris Category: Medical Code(s): I25.10 - Atherosclerotic heart disease of [place] coronary artery without angina pectoris (9) Hypertension: Status: Chronic Qualifiers: Hypertension type: primary hypertension Qualified Code(s): I10 - Essential (primary) hypertension Category: Medical Code(s): I10 - Essential (primary) hypertension (10) Hyperlipidemia: Status: Chronic Qualifiers: Hyperlipidemia type: mixed hyperlipidemia Qualified Code(s): E78.2 - Mixed hyperlipidemia Category: Medical Code(s): E78.5 - Hyperlipidemia, unspecified Plan Delia Buchanan is a 62-year-old female with a medical history significant for COPD (2 L with exertion as needed), current tobacco smoker (4 cigarettes/day), HFrEF (LVEF 25 to 30% on 08/11/2023), A-flutter (on Eliquis, s/p unsuccessful cardioversion August 2023), CAD, hypertension, hyperlipidemia, hypothyroidism presented on 10/22/2023 with 1 week of yellow productive cough, shortness of breath, leg swelling which significantly worsened yesterday. Discussed case with ED attending and decision was made to admit patient for acute on chronic hypoxic, hypercapnic respiratory failure secondary to COPD, HFrEF exacerbation, and A-flutter with RVR. Showing some improvement in rate control. Still requiring 2 L oxygen. Lungs improved today. Cardiology evaluated, given severity of heart failure, need to address volume status and aggressively diurese. Continues to require inpatient management. Problems addressed as follows: #Atrial flutter with RVR, resolved Acute on chronic heart failure with reduced ejection fraction ? Patient is experiencing nausea since starting amiodarone. Cardiology is discontinuing amiodarone and proceeding with cardioversion today. Currently rate controlled. ? Metoprolol succinate 100 mg twice daily. ? Continue home Eliquis 5 mg twice daily. She prefers this over Xarelto as she states she does not have a set dinnertime to take Xarelto. ? Goal K+ > 4, Mg > 2. Replete as appropriate. Continue to monitor electrolytes. - Risk stratification for HFrEF: A1c, lipid panel, TSH normal. ? Cardiology is not planning for LHC at this time given likely etiology of worsening heart failure is uncontrolled a flutter with RVR. As such, they also do not think she is a candidate for AICD at this time given persistent A-flutter. ? LifeVest ordered, will need to be fitted before discharge. ? IV Lasix 40 mg twice daily, will continue at this time per cardiology recommendations. Plan to transition to p.o. tomorrow. ? GDMT: Jardiance 10 mg, Entresto, spironolactone, metoprolol succinate. ? Will need close follow-up with cardiology outpatient. Will also benefit from cardiac rehab. #Acute on chronic hypoxic respiratory failure #Acute hypercapnic respiratory failure ? Most consistent with acute COPD exacerbation and HFrEF exacerbation present on arrival. See separate problems. #Acute COPD exacerbation #? Community-acquired pneumonia ? Patient reported 1 week onset of increased cough and productive sputum with color change to yellow on admission. No sick contacts, reports adherence with inhalers. Uses Symbicort and albuterol at home. ? VBG shows new hypercapnia compared to past studies, 56.3. However, compensated with pH 7.33. Mild leukocytosis 12.9. ? Exam reveals bilateral decreased air movement, moderate wheezing, increased work of breathing but improved today. No fever, upper respiratory symptoms. ? CXR does not show acute findings. ? PSI risk class IV. Plan: ? Patient states she is breathing better, exam corroborates this. ? Discontinued ipratropium, Xopenex, Pulmicort. ? Started Trelegy 100 daily. ? Finished course of ceftriaxone, azithromycin, prednisone. ? However, respiratory culture revealed moderate stenotrophomonas miltophilia growth. Discussed with pulmonology who advised Bactrim for 14 days. ? Bactrim day 02/21. - Pulmonology consulted, appreciate recommendations. #Hypothyroidism ? continue home levothyroxine 50 mcg. ? Repeat TSH, T4 normal. #CAD, hyperlipidemia ? Aspirin, atorvastatin. CODE STATUS: Full code Diet: Cardiac DVT prophylaxis: Home Eliquis
[2023-10-27 14:07] LABS: Magnesium 2.3 mg/dl (1.6-2.3)
[2023-10-27 14:30] LABS: Activated Partial Thrombo Time 30.7 seconds (22.8-30.6); INR 1.12 (0.9-1.1); Prothrombin Time 12.4 seconds (10.1-12.5)
--- NOTE | 2023-10-27 15:43 | EXP.ANES.CKL ---
[facility] Disclaimer: The information contained in this section may have been updated after the patient was seen, as this information can be updated by other users. Medical History (Updated 10/27/23 @ 12:28 by Dea Hargrove APRN) HFrEF (heart failure with reduced ejection fraction) Atrial flutter with rapid ventricular response Elevated liver enzymes Smoking greater than 30 pack years Dyspnea on exertion Pulmonary emphysema Dyspnea Afib Sinus bradycardia Chronic, continuous use of opioids Right rotator cuff tear Hypothyroidism Atrial fibrillation/flutter Pulmonary hypertension Hepatitis C Tobacco dependence (HFpEF) heart failure with preserved ejection fraction Hyperlipidemia Hypertension COPD (chronic obstructive pulmonary disease) Surgical History History of hysterectomy History of surgery on right wrist History of mandibular surgery History of left heart catheterization History of cholecystectomy S/P rotator cuff repair H/O splenectomy History of cardioversion Family History Mother Stroke Father Coronary artery disease Social History Smoking Status: Current some day smoker tobacco type: cigarettes packs per day: 1 years smoked: 40 second hand exposure: Yes alcohol intake: never substance use type: denies use current occupational status: unemployed and disabled Travel in the last 8 weeks: Inside the [place] household members: none housing: house lives independently: Yes marital status: single number of children: 3 current occupation: Disabled caffeine: Yes [facility] Anesthesia Checklist Patient Identification Patient Identification: Arm Band and Verbal (Name & ) Structural Data Admitted From: Inpatient Planned Operative Procedure/s: -203 Consent for Planned Operative Procedure(s) Verified: Yes Verified Documents: Surgical Consent and History and Physical NPO Status Verified Time NPO: 08:30 Chart Verification Results Verified: CBC, BMP, PT, PTT, INR, ECG and Chest Xray Additional verifications Patient : No Anesthesia Reactions: No Cardiovascular Assessment Pulse Rhythm: Irregular Peripheral Edema: No Airway Assessment Mallampati Score:: Class II C-Spine Mobility Assessed: Yes (FROM demonstrated) TMJ Mobility Assessed: Yes Dentition: Poor Dentition (Nothing loose per pt.) Neurological Assessment Level of Consciousness: Awake, Alert, Appropriate and Follows Commands Hx Seizures: No Numbness or tingling in extremities: No Anesthesia Plan Anesthesia Risk discussed: Yes Anesthesia Plan: Verified ASA Class: III Anesthesia Type: MAC
--- NOTE | 2023-10-27 15:44 | SUR.PREOP ---
Alfredo Caldwell RN removed lidocaine patch @ this time.
--- NOTE | 2023-10-27 16:28 | PC.NURSE ---
REPORT CALLED FROM [facility]. PT WAS CARDIOVERTED WITH 150J. TOLERATED WELL. NO MEDS GIVEN OTHER THAN ANESTHESIA. AMIODARONE TO BE RESTARTED TOMORROW PER .
--- NOTE | 2023-10-27 16:48 | ECG_ITS ---
APPROVED REPORT Exam: Resting ECG HR:72 bpm ECG Measurements Heart Rate [address] 167 P 68 QRSd 127 QRS 61 QT 387 T 80 QTc 412 Conclusion SINUS RHYTHM POSSIBLE LEFT VENTRICULAR HYPERTROPHY [VOLTAGE CRITERIA PLUS LAE OR QRS WIDENING] NONSPECIFIC T-WAVE ABNORMALITY ABNORMAL ECG UNCONFIRMED REPORT Electronically signed by : Favian Willard MD 10/29/2023 14:18:54
--- NOTE | 2023-10-27 16:51 | CT_ITS ---
PROCEDURE INFORMATION: Exam: CT Chest Without Contrast; Diagnostic Exam date and time: 10/27/2023 4:52 PM Age: 62 years old Clinical indication: Pain; Chest pressure; Additional info: R/O varsha complications TECHNIQUE: Imaging protocol: Diagnostic computed tomography of the chest without contrast. Radiation optimization: All CT scans at this facility use at least one of these dose optimization techniques: automated exposure control; mA and/or kV adjustment per patient size (includes targeted exams where dose is matched to clinical indication); or iterative reconstruction. COMPARISON: CT ANGIO CHEST PE PROTOCOL 10/22/2023 2:09 PM FINDINGS: Lungs: Moderate centrilobular emphysema. Pleural spaces: Unremarkable. No pneumothorax. No pleural effusion. Heart: Unremarkable. No cardiomegaly. No pericardial effusion. Coronary arteries: Coronary artery calcification Lymph nodes: Unremarkable. No enlarged lymph nodes. Vasculature: Regions of atherosclerotic vascular calcification involving the aortic arch. Diaphragm: small hiatal hernia Bones/joints: Thoracic spondylosis with multilevel disc degeneration. Soft tissues: Unremarkable. IMPRESSION: 1. Moderate centrilobular emphysema. 2. No evidence of acute cardiopulmonary disease. COMMENTS: The presence of pulmonary emphysema on CT is an independent risk factor for lung cancer. In the absence of a history or active diagnosis of lung cancer, it is recommended that this patient with emphysema be evaluated for enrollment in a low dose CT lung cancer screening program.
--- NOTE | 2023-10-27 17:26 | SUR.PHASEII ---
1637 - Pt reports sudden onset chest pain . When asking patient to point to area that is hurting she is point to epigastric area. Describes pain as being sharp and a 7/10. VSS stable. Dr. Ruano Notified. 1641 - EKG ordered. 1645 - RT at bedside. 1648 - Dr. Ruano @ bedside to see pt. Pt continues to c/o pain that has improved very little. 1650 - Verbal order for stat CT chest w/o contrast 1654 -Pt transported to CT by bed w/ nursing staff. 1705 - Pt to floor @ 1705. Family at bedside. Currently sitting up in bed conversing w/ family. Call taylor w/in reach, bed locked in lowest position. Solomon GoldenRN at bedside as well.
--- NOTE | 2023-10-27 17:32 | PC.NURSE ---
upon arriving back to the floor from being cardioverted, pt had soft bp of 78/55. TENISHA singer spoke with anesthesia and they voiced that due to pt ef and body size this was acceptable, just to monitor. pt educated on symptoms of low bp and she verbalized understanding. datascope taking bp every 10 minutes
--- NOTE | 2023-10-27 18:01 | PC.NURSE ---
Alert and oriented. Complained of pain once, treated per mar with iv morphine. 2L NC intermittently, with sats >90%. Aflutter on tele until being cardioverted this afternoon. New IV started in the rt forearm per pt request. pt has had soft bp this shift, but this is her baseline. call light in reach. bed in low and locked position
[2023-10-27] MEDS: ATORVASTATIN 40MG TABLET 40 MG PO (21:28)
[2023-10-27] MEDS: SULFA/TRIMETHOPRIM 1 TABLET 1 EACH PO (21:28)
[2023-10-27] MEDS: ACETAMINOPHEN 325MG TAB 650 MG PO (22:32)
[2023-10-28] VITALS (18 sets, daily range): BP systolic 70–112; BP diastolic 34–75; PULSE 51–90; RESP 14–19; TEMP 36.7–37; O2SAT 3–97; BMI 22.4
--- NOTE | 2023-10-28 05:53 | PC.NURSE ---
Patient is alert and oriented x4. Patient was fitted for a life vest this shift and has it in place. Patient was observed to have eyes closed, respirations even and unlabored, and no apparent distress throughout the majority of the night. Patient did complain of severe pain, at first generalized, that was treated with morphine per APR. Patient was also given her scheduled medications per APR at the time. Patient reported only slight relief of pain, but was continuing to have moderate back pain. A dose of Tylenol, soon followed by Percocet 5 per APR, was given. Patient was observed to be able to rest after receiving Percocet 5 for her pain; patient reported that the Tylenol did nothing for her back pain. Patient has not reported any further pain thus far. Upon auscultation, expiratory wheezing and diminished lung sounds were noticed. Patient reported having an intermittent, productive cough with green sputum; however, sputum was not observed this shift. Patient's bowel sounds were active. Patient has been getting up to the bedside commode with standby assistance. Patient was cardioverted yesterday, and has been running normal sinus rhythm with a bundle branch block on telemetry this shift. Patient has remained on 2 L of oxygen via nasal cannula this shift and tolerated it well. Patient's blood pressures have been hypotensive, but is patient's baseline. Patient has not had any complaints of feeling nauseous or dizzy this shift. She is currently resting supine in bed. No acute changes noted. Call light within reach.
[2023-10-28] MEDS: FLUTICASONE/UMECLIDIN/VILANTER 100/62.5/25MCG INHALER 1 PUFF IH (06:14)
[2023-10-28] MEDS: LEVOTHYROXINE 50MCG (0.05MG) TAB 50 MCG PO (06:39)
[2023-10-28 07:48] LABS: Blood Urea Nitrogen 46 mg/dl (7-17); Calcium 8.6 mg/dl (8.4-10.2); Chloride 90 mmol/L (98-107); Creatinine Clearance Estimated 49 mL/min (50-200); Estimated Glomerular Filt Rate 38 ml/min (>60); GFR (African American) 46 ML/MIN (>60); Glucose 101 mg/dl (74-100); Potassium 4.5 mmoL/L (3.5-5.1); Sodium 133 mmol/L (136-145)
[2023-10-28 07:56] LABS: Anion Gap 9.5 mEq/L (5-15); Carbon Dioxide 38 mmol/L (22.0-30.0)
[2023-10-28 08:04] LABS: Magnesium 2.3 mg/dl (1.6-2.3)
[2023-10-28] MEDS: SULFA/TRIMETHOPRIM 1 TABLET 1 EACH PO ×2 (08:47→21:26)
[2023-10-28] MEDS: SACUBITRIL/VALSARTAN 24-26MG TABLET 1 EACH PO ×2 (08:47→21:26)
[2023-10-28] MEDS: EMPAGLIFLOZIN 10MG TABLET 10 MG PO (08:47)
[2023-10-28] MEDS: ASPIRIN EC 81MG TABLET 81 MG PO (08:47)
[2023-10-28] MEDS: METOPROLOL SUCCINATE XL 100MG TABLET 100 MG PO ×2 (08:47→21:26)
[2023-10-28] MEDS: FUROSEMIDE 40MG/4ML VIAL 40 MG IV (08:47)
[2023-10-28] MEDS: APIXABAN 5MG TABLET 5 MG PO ×2 (08:47→21:25)
[2023-10-28] MEDS: CITALOPRAM 10MG TABLET 10 MG PO (08:47)
[2023-10-28] MEDS: predniSONE 20MG TAB 40 MG PO (08:47)
[2023-10-28] MEDS: PANTOPRAZOLE 40MG TABLET 40 MG PO (08:47)
[2023-10-28] MEDS: SPIRONOLACTONE 25MG TABLET 25 MG PO (08:47)
[2023-10-28] MEDS: ONDANSETRON 4MG/2ML VIAL 4 MG IV (08:55)
[2023-10-28] MEDS: MORPHINE 2MG/ML SYRINGE 2 MG IV ×2 (08:55→21:25)
--- NOTE | 2023-10-28 09:30 | EXP.PULM.PN ---
Subjective *Date: 10/28/23 *Time: 10:10 Interval history: No acute respiratory vents overnight. Pulmonology Exam Inpatient Vital signs and Labs for Last 24 Hours: Temp Pulse Resp BP Pulse Ox O2 Del Method O2 Flow Rate 98.4 F 63 19 93/61 L 96 Nasal Cannula 3 10/28/23 08:00 10/28/23 08:00 10/28/23 08:00 10/28/23 08:00 10/28/23 08:00 10/28/23 07:00 10/28/23 07:00 FiO2 28 10/26/23 18:53 Laboratory Results - last 24 hr 10/27/23 06:02: Magnesium 2.3 D 10/27/23 14:05: PT 12.4, INR 1.12 H, APTT 30.7 H 10/28/23 07:22: Sodium 133 L, Potassium 4.5, Chloride 90 L, Carbon Dioxide 38 H, Anion Gap 9.5, BUN 46 H, Creatinine 1.40 H, Estimated Creat Clear 49, Estimated GFR 38 L, Est GFR ( Amer) 46 L, Glucose 101 H, Calcium 8.6, Magnesium 2.3 Temp Pulse Resp BP Pulse Ox O2 Del Method O2 Flow Rate 96.8 F L 90 17 100/69 L 96 Nasal Cannula 2 10/27/23 07:39 10/27/23 08:00 10/27/23 07:39 10/27/23 07:39 10/27/23 07:39 10/27/23 06:55 10/27/23 06:55 FiO2 28 10/26/23 18:53 Laboratory Results - last 24 hr 10/26/23 14:10: WBC 10.3, RBC 5.48 H, Hgb 15.2, Hct 52.0 H, MCV 94.9, MCH 27.7, MCHC 29.2 L, RDW 16.1, Plt Count 455 H, MPV 7.0 L, Neut % (Auto) 81.2 H, Lymph % (Auto) 11.4, [place] % (Auto) 5.6, Eos % (Auto) 1.6, Baso % (Auto) 0.2, Neut # (Auto) 8.4 H, Lymph # (Auto) 1.2, [place] # (Auto) 0.6, Eos # (Auto) 0.2, Baso # (Auto) 0.0, Sodium 138, Potassium 3.8, Chloride 92 L, Carbon Dioxide 39 H, Anion Gap 10.8, BUN 44 H, Creatinine 1.10 H D, Estimated Creat Clear 63, Estimated GFR 51 L, Est GFR ( Amer) 61 D, Glucose 103 H, Lactate 1.0, Calcium 8.6, Total Bilirubin 0.4, Direct Bilirubin 0.3, Conjugated Bilirubin 0.0, Indirect Bilirubin 0.1, Unconjugated Bilirubin 0.1, AST 68 H D, ALT 65, Alkaline Phosphatase 94, Troponin I < 0.01, Total Protein 7.5, Albumin 4.1 10/27/23 06:02: WBC 10.2, RBC 5.38, Hgb 14.8, Hct 50.6 H, MCV 94.0, MCH 27.5, MCHC 29.3 L, RDW 16.2, Plt Count 459 H, MPV 7.2 L, Neut % (Auto) 84.9 H, Lymph % (Auto) 10.2, [place] % (Auto) 3.7, Eos % (Auto) 1.1, Baso % (Auto) 0.2, Neut # (Auto) 8.7 H, Lymph # (Auto) 1.0, [place] # (Auto) 0.4, Eos # (Auto) 0.1, Baso # (Auto) 0.0, Sodium 135 L, Potassium 4.1, Chloride 91 L, Carbon Dioxide 36 H, Anion Gap 12.1, BUN 56 H D, Creatinine 1.30 H, Estimated Creat Clear 53, Estimated GFR 42 L, Est GFR ( Amer) 51 L, Glucose 124 H D, Lactate 1.1, Calcium 8.7, Total Bilirubin 0.4 10/27/23 06:02: Total Bilirubin 0.4, Direct Bilirubin 0.2, Conjugated Bilirubin 0.0, Indirect Bilirubin 0.2, Unconjugated Bilirubin 0.2, AST 37 H D 10/27/23 06:02: AST 36, ALT 52 10/27/23 06:02: ALT 52, Alkaline Phosphatase 79 10/27/23 06:02: Alkaline Phosphatase 79, Troponin I < 0.01, Total Protein 6.9 10/27/23 06:02: Total Protein 7.0, Albumin 3.6 D 10/27/23 06:02: Albumin 3.6, Globulin 3.3 H, Albumin/Globulin Ratio 1.1, TSH 1.56 D, Free T4 1.03 I & O for Labs for Last 24 Hours: Intake & Output 10/25/23 10/26/23 10/27/23 10/28/23 23:59 23:59 23:59 23:59 Intake Total 1389.18 / 1389.18 1320 / 1500 420 / 540 390 / 390 Output Total 4375 / 4375 1200 / 1200 0 / 0 0 / 0 Balance -2985.82 / -2985.82 120 / 300 420 / 540 390 / 390 Weight 152 lb 5.431 oz 161 lb 9 oz 160 lb 11.2 oz 160 lb 4.417 oz Intake & Output 10/24/23 10/25/23 10/26/23 10/27/23 23:59 23:59 23:59 23:59 Intake Total 2611 / 2833 1389.18 / 1389.18 1320 / 1500 420 / 420 Output Total 5700 / 5700 4375 / 4375 1200 / 1200 0 / 0 Balance -3089 / -2867 -2985.82 / -2985.82 120 / 300 420 / 420 Weight 152 lb 6 oz 152 lb 5.431 oz 161 lb 9 oz 160 lb 11.2 oz Microbiology Reports for the Last 24 Hours: Microbiology 10/22/23 12:27 Blood Blood Culture - Final NO GROWTH AFTER 5 DAYS 10/22/23 11:30 Blood Blood Culture - Final NO GROWTH AFTER 5 DAYS 10/23/23 13:18 Sputum - Expectorated Sputum Gram Stain - Final 10/23/23 13:18 Sputum - Expectorated Sputum Sputum Culture - Final Stenotrophomonas maltophilia Microbiology 10/23/23 13:18 Sputum - Expectorated Sputum Gram Stain - Final 10/23/23 13:18 Sputum - Expectorated Sputum Sputum Culture - Final Stenotrophomonas maltophilia 10/22/23 12:27 Blood Blood Culture - Preliminary NO GROWTH AFTER 4 DAYS 10/22/23 11:30 Blood Blood Culture - Preliminary NO GROWTH AFTER 4 DAYS Constitutional: Present moderate distress Head: Present normocephalic and atraumatic ENT: Present normal exam, normal oropharynx and mucous membranes moist Neck: Present normal inspection and full ROM Respiratory: Present prolonged expiratory phase, respiratory distress, wheezes and able to speak in complete sentences Cardiac: Present S1/S2, Tachycardia and radial pulses present GI: Present soft and distention; Absent tenderness or guarding Rectal (female): Present deferred (female): Present deferred Skin: Present intact; Absent cyanosis or jaundice Neuro: Present alert, awake and oriented x 3 Extremities: Present normal inspection; Absent clubbing or cyanosis Psychiatric: Present normal affect and cooperative Assessment and Plan *Assessment and plan (1) COPD exacerbation: Status: Acute Category: Medical Code(s): J44.1 - Chronic obstructive pulmonary disease with (acute) exacerbation (2) PNA (pneumonia): Status: Acute Qualifiers: Laterality: unspecified laterality Lung location: unspecified part of lung Pneumonia type: due to unspecified organism Qualified Code(s): J18.9 - Pneumonia, unspecified organism Category: Medical Code(s): J18.9 - Pneumonia, unspecified organism Plan Ms. Buchanan is a 62-year-old female with reported history of COPD chronic hypoxic respiratory failure heart failure with reduced EF atrial flutter CAD hypertension presented to the ER on 10/22/2019 for worsening respiratory status cough and productive phlegm. Patient since and has been managed for atrial flutter with RVR, CHF exacerbation and possible COPD exacerbation/community-acquired pneumonia. Receiving ceftriaxone and azithromycin along with prednisone and nebulization therapies. Cardiology following. Patient noted to have worsening respiratory distress yesterday with wheezing and pulmonary was consulted for further evaluation and management. CTA upon admission evidence of pulmonary embolism but no dense consolidation with airspace changes. No pleural effusions. Concerning right upper lobe nodule/scarring. Afebrile. Hemodynamically stable with no evidence of leukocytosis. Stable oxygen requirements. Sputum cultures from admission Stenotrophomonas maltophilia. Patient received ceftriaxone azithromycin. Labs revealed, acute kidney injury with worsening BUN,creatinine and GFR from yesterday, primary team following. On examination this morning patient does not appear to be in any respiratory distress. Mild expiratory wheezing noted on auscultation. On home baseline 2 L nasal abdomen supplementation. Interval update: No acute respiratory events overnight. Chest x-ray no significant change from admission per CT chest no dense consolidative/airspace changes noted. Cardiology following, EF of 20%, plan to be discharged on LifeVest. Plan: Recommend Bactrim DS BID really dosed to complete a total of 7 day course Continue Trelegy 100 inhaler along with DuoNebs QID PRN Recommend to complete a total of 5-day course of prednisone from admission #Thank you for involving pulmonary in this patient care. Will follow the patient in pulmonary clinic 1 to 2 weeks post discharge
[2023-10-28] MEDS: AMIODARONE 200MG TABLET 200 MG PO ×2 (11:08→21:25)
--- NOTE | 2023-10-28 11:26 | EXP.CARD.PN ---
Subjective Subjective Date: 10/28/23 Time: 10:00 Principal diagnosis: HFrEF, atrial flutter with RVR Interval history: This is a 62-year-old white female who presented to the emergency department complaints of shortness of breath and chest pain. She was admitted for atrial flutter with RVR and acute HFrEF. The patient underwent ALLA and cardioversion yesterday for persistent atrial flutter. She is now in sinus rhythm. Patient started having chest pain postprocedure. CT of the chest showed no complications from the ALLA and cardioversion. She states that she is still having a lot of chest pain and pressure in the center of her chest. This is a severe pain. Occurring at rest and with exertion. She states that it does not radiate. It is associated with shortness of breath. She states that her shortness of breath has not improved since being in the hospital. She does state that her nausea has resolved with Zofran. She denies any lower extremity edema. She denies any fever, chills, vomiting, diarrhea, PND or orthopnea. . Exam Data for Last 24 hours Vital signs and Labs for Last 24 Hours: Temp Pulse Resp BP Pulse Ox O2 Del Method O2 Flow Rate 98.4 F 63 19 93/61 L 3 L Nasal Cannula 3 10/28/23 08:00 10/28/23 08:00 10/28/23 08:00 10/28/23 08:00 10/28/23 08:00 10/28/23 09:00 10/28/23 09:00 FiO2 28 10/26/23 18:53 Laboratory Results - last 24 hr 10/27/23 06:02: Magnesium 2.3 D 10/27/23 14:05: PT 12.4, INR 1.12 H, APTT 30.7 H 10/28/23 07:22: Sodium 133 L, Potassium 4.5, Chloride 90 L, Carbon Dioxide 38 H, Anion Gap 9.5, BUN 46 H, Creatinine 1.40 H, Estimated Creat Clear 49, Estimated GFR 38 L, Est GFR ( Amer) 46 L, Glucose 101 H, Calcium 8.6, Magnesium 2.3 I & O for Last 24 hours: Intake & Output 10/25/23 10/26/23 10/27/23 10/28/23 23:59 23:59 23:59 23:59 Intake Total 1389.18 / 1389.18 1320 / 1500 420 / 540 390 / 390 Output Total 4375 / 4375 1200 / 1200 0 / 0 0 / 0 Balance -2985.82 / -2985.82 120 / 300 420 / 540 390 / 390 Weight 152 lb 5.431 oz 161 lb 9 oz 160 lb 11.2 oz 160 lb 4.417 oz Microbiology Reports for the Last 24 Hours: Microbiology 10/22/23 12:27 Blood Blood Culture - Final NO GROWTH AFTER 5 DAYS 10/22/23 11:30 Blood Blood Culture - Final NO GROWTH AFTER 5 DAYS 10/23/23 13:18 Sputum - Expectorated Sputum Gram Stain - Final 10/23/23 13:18 Sputum - Expectorated Sputum Sputum Culture - Final Stenotrophomonas maltophilia Constitutional Constitutional: no acute distress and average body habitus *Routine HEENT Exam Head: Present normocephalic and atraumatic ENT: Present mucous membranes moist *Routine Neck Exam Neck: Present supple, full ROM and normal carotid upstroke; Absent JVD, carotid bruit or lymphadenopathy *Routine Respiratory Exam Respiratory: Present CTA bilaterally, normal respiratory effort, able to speak in complete sentences and symmetric chest movement *Routine Cardiovascular Exam Cardiovascular: Present Normal S1, Normal S2 and irregular rhythm; Absent murmur or gallop *Routine Abdominal Exam Abdominal: Present soft and normoactive bowel sounds; Absent tenderness, distended or organomegaly *Routine Extremities Exam Extremities: Present full ROM, pulses intact and normal capillary refill; Absent cyanosis, clubbing or edema *Routine Skin Exam Skin: Present intact and warm; Absent erythema *Routine Neurological Exam Neurological: Present alert, oriented X3 and CN II-XII intact; Absent sensory deficit or motor deficit Routine Psychiatric Exam Psychiatric: Present normal affect Progress Note: A&P Assessment and plan (1) Unstable angina: Status: Acute (2) HFrEF (heart failure with reduced ejection fraction): Status: Acute (3) COPD exacerbation: Status: Acute (4) PNA (pneumonia): Status: Acute (5) Pulmonary emphysema: Status: Acute (6) Atrial flutter: Status: Acute (7) Tobacco dependence: Status: Chronic (8) Hypertension: Status: Chronic (9) Hyperlipidemia: Status: Chronic Assessment and Plan Assessment and Plan for All Diagnoses:: Plan: 1. The patient was admitted to the hospital with atrial fibrillation/flutter with RVR. She did rate controlled on amiodarone drip and then was converted over to oral amiodarone. She was complaining of nausea since being in the hospital so the amiodarone was stopped yesterday due to her nausea and she underwent ALLA with cardioversion and is now in sinus rhythm. 2. Will restart amiodarone today at a lower dose, 200 mg p.o. twice daily for suppression of her atrial fibrillation. 3. Continue Eliquis for long-term anticoagulation due to atrial fibrillation. 4. The patient has been having chest pain since her cardioversion yesterday. She states that this is a severe pain and she is also having shortness of breath. Patient having symptoms consistent with unstable angina. Will plan to proceed with left cardiac catheterization today to evaluate for coronary artery disease. 5. The patient has been educated on the risks and benefits of proceeding with LHC with right radial access. The patient has verbalized understanding and is agreeable in proceeding with the procedure. 6. The patient will be n.p.o. in preparation for left cardiac catheterization. 7. The patient does have acute exacerbation of HFrEF. Her ejection fraction is down to 20%. The patient is at increased risk of sudden cardiac due to her severe LV dysfunction. The patient has been fitted for her LifeVest. 8. The patient is being diuresed with IV Lasix for HFrEF. Her creatinine remains elevated at 1.3 today. Will stop IV Lasix and start her on torsemide 20 mg p.o. daily for continued diuresis. 9. Consider an ablation on an outpatient basis. 10. Continue metoprolol for HFrEF and better heart rate control. 11. Continue spironolactone, Entresto and Jardiance for HFrEF. 12. Her blood pressure is on the low side but well-controlled. 13. Her LDL goal is less than 100. Her LDL is 75. She is on a statin.. 14. Further recommendations will be made pending the patient's response to treatment and results of left cardiac catheterization today. Thank you for the opportunity to help participate in the care of this patient. All recommendations and orders are per Dr. Ruano.
--- NOTE | 2023-10-28 12:33 | IR_ITS ---
APPROVED REPORT Patient Location: Inpatient [facility] Helper: RYAN Ang RT (R) PROCEDURES Left heart catheterization Left ventriculogram Selective coronary angiogram INDICATION Systolic congestive heart failure, New onset cardiomyopathy Informed consent was obtained prior to the procedure. COMPLICATIONS None Estimated Blood Loss: Less than 10 mls TECHNIQUE One percent lidocaine used to anesthetize the right anterior aspect of the wrist. The right radial artery was accessed via the Seldinger technique. A 6 Bur[place]ese sheath was placed in the right radial artery. 2.5 mg of Verapamil, 800 mcg of nitroglycerin, 1mg Lidocaine and 5000 U Heparin were given through the arterial sheath. The papa catheter was also used to perform left heart catheterization, left ventriculogram and selective coronary angiogram. At the end of the procedure the sheath was removed good hemostasis was achieved using Traclet band, patient was transferred to the postop holding area in stable condition. ANGIOGRAPHIC RESULTS The left main artery Normal The left anterior descending artery Normal The circumflex artery Normal The right coronary artery Large dominant with a mid vessel moderate vascular ectatic area with no stenosis The MINER ventriculogram reveals Severe left ventricular dilatation with severe global hypokinesis estimate ejection fraction 10 to 15% The left ventricular end-diastolic pressure 15 to 18 mmHg IMPRESSION Nonischemic cardiomyopathy Severely reduced ejection fraction with severe global hypokinesis Borderline LVEDP PLAN 1. Continue medical management Electronically signed by : Brad Toscano MD 10/28/2023 15:20:17
[2023-10-28] MEDS: diphenhydrAMINE 50MG/ML VIAL 50 MG IV (13:04)
[2023-10-28] MEDS: OXYCODONE 5MG W/APAP 325MG TABLET 1 EACH PO ×2 (13:56→22:37)
[2023-10-28] MEDS: TORSEMIDE 20MG TABLET 20 MG PO (13:59)
[2023-10-28] MEDS: LIDOCAINE 1% 10ML MDV 20 ML IJ (14:48)
[2023-10-28] MEDS: HEPARIN 1,000 UNITS/ML 10ML VIAL (CATH LAB) 10000 UNIT IV (14:50)
[2023-10-28] MEDS: 0.9 % SODIUM CHLORIDE 500 ML 25 ML IV ×2 (14:50→15:21)
[2023-10-28] MEDS: HEPARIN 1,000 UNITS/500ML NS (CATH LAB) 3000 UNIT IV ×2 (14:51→15:22)
[2023-10-28] MEDS: VERAPAMIL 2.5MG/ML 2ML VIAL 2.5 MG IV (14:52)
[2023-10-28] MEDS: FENTANYL 100MCG/2ML VIAL 50 MCG IV (15:22)
[2023-10-28] MEDS: MIDAZOLAM HCL 1MG/1ML 5ML VIAL 1 MG IV (15:22)
[2023-10-28] MEDS: IOPAMIDOL-370 (76%);100ML BOTTLE 50 ML IV (15:28)
--- NOTE | 2023-10-28 16:18 | P.PN_ITS ---
Subjective *Date: 10/28/23 *Time: 16:18 Interval history: Patient was lying in bed comfortably this morning without acute distress. She continues to report sharp midsternal chest pain with some radiation to left shoulder, reproducible with palpation. Worse with coughing. But she states she is breathing better today. Exam Data for Last 24 hours Vital signs and Labs for Last 24 Hours: Temp Pulse Resp BP Pulse Ox O2 Del Method O2 Flow Rate 98.6 F 58 L 19 91/61 L 94 L Nasal Cannula 3 10/28/23 12:00 10/28/23 12:00 10/28/23 12:00 10/28/23 12:00 10/28/23 12:00 10/28/23 13:00 10/28/23 13:00 FiO2 28 10/26/23 18:53 Laboratory Results - last 24 hr 10/28/23 07:22: Sodium 133 L, Potassium 4.5, Chloride 90 L, Carbon Dioxide 38 H, Anion Gap 9.5, BUN 46 H, Creatinine 1.40 H, Estimated Creat Clear 49, Estimated GFR 38 L, Est GFR ( Amer) 46 L, Glucose 101 H, Calcium 8.6, Magnesium 2.3 Temp Pulse Resp BP Pulse Ox O2 Del Method O2 Flow Rate 98.6 F 121 H 20 129/99 H 93 L Nasal Cannula 4 10/25/23 11:59 10/25/23 12:00 10/25/23 10:00 10/25/23 10:00 10/25/23 10:00 10/25/23 10:00 10/25/23 10:00 FiO2 32 10/24/23 19:12 Laboratory Results - last 24 hr 10/25/23 05:46: WBC 10.2, RBC 4.48, Hgb 12.4, Hct 41.9, MCV 93.5, MCH 27.6, MCHC 29.5 L, RDW 17.0, Plt Count 441 H, MPV 8.5, Neut % (Auto) 76.4, Lymph % (Auto) 15.1, [place] % (Auto) 8.4, Eos % (Auto) 0.1, Baso % (Auto) 0.1, Neut # (Auto) 7.8, Lymph # (Auto) 1.5, [place] # (Auto) 0.9, Eos # (Auto) 0.0, Baso # (Auto) 0.0, Sodium 137, Potassium 3.9, Chloride 93 L, Carbon Dioxide 36 H, Anion Gap 11.9, BUN 43 H, Creatinine 1.00, Estimated Creat Clear 65, Estimated GFR 57 L, Est GFR ( Amer) 68, Glucose 99, Calcium 8.5, Magnesium 2.0, Total Bilirubin 0.3, AST 45 H D, ALT 39, Alkaline Phosphatase 88, Total Protein 6.7, Albumin 3.6, Globulin 3.1, Albumin/Globulin Ratio 1.2 I & O for Last 24 hours: Intake & Output 10/25/23 10/26/23 10/27/23 10/28/23 23:59 23:59 23:59 23:59 Intake Total 1389.18 / 1389.18 1320 / 1500 420 / 540 390 / 390 Output Total 4375 / 4375 1200 / 1200 0 / 0 900 / 900 Balance -2985.82 / -2985.82 120 / 300 420 / 540 -510 / -510 Weight 69.1 kg 73.284 kg 72.892 kg 72.7 kg Intake & Output 10/22/23 10/23/23 10/24/23 10/25/23 23:59 23:59 23:59 23:59 Intake Total 240 / 240 2441.482 / 2441.482 2611 / 2833 462 / 462 Output Total 400 / 400 1200 / 1200 5700 / 5700 1400 / 1400 Balance -160 / -160 1241.482 / 1241.482 -3089 / -2867 -938 / -938 Weight 153 lb 153 lb 0.013 oz 152 lb 6 oz 152 lb 5.431 oz Microbiology Reports for the Last 24 Hours: Microbiology 10/22/23 12:27 Blood Blood Culture - Final NO GROWTH AFTER 5 DAYS Microbiology 10/23/23 13:18 Sputum - Expectorated Sputum Gram Stain - Final 10/23/23 13:18 Sputum - Expectorated Sputum Sputum Culture - Preliminary 10/22/23 12:27 Blood Blood Culture - Preliminary NO GROWTH AFTER 48 HOURS 10/22/23 11:30 Blood Blood Culture - Preliminary NO GROWTH AFTER 48 HOURS Constitutional Constitutional: no acute distress and average body habitus *Routine HEENT Exam Head: Present normocephalic and atraumatic ENT: Present mucous membranes moist *Routine Neck Exam Neck: Present supple, full ROM and normal carotid upstroke; Absent JVD, carotid bruit or lymphadenopathy *Routine Respiratory Exam Respiratory: Present prolonged expiratory phase; Absent wheezes Comments: Moderate wheezing bilateral lung ignacio. *Routine Cardiovascular Exam Cardiovascular: Present RRR, Normal S1 and Normal S2; Absent murmur or gallop *Routine Abdominal Exam Abdominal: Present soft and normoactive bowel sounds; Absent tenderness, distended or organomegaly *Routine Extremities Exam Extremities: Present full ROM, pulses intact and normal capillary refill; Absent cyanosis, clubbing or edema *Routine Skin Exam Skin: Present intact and warm; Absent erythema *Routine Neurological Exam Neurological: Present alert, oriented X3 and CN II-XII intact; Absent sensory deficit or motor deficit Routine Psychiatric Exam Psychiatric: Present normal affect Assessment and Plan *Assessment and plan (1) CHF exacerbation: Status: Acute Qualifiers: Heart failure type: systolic Qualified Code(s): I50.23 - Acute on chronic systolic (congestive) heart failure Category: Medical Code(s): I50.9 - Heart failure, unspecified (2) PNA (pneumonia): Status: Acute Qualifiers: Laterality: unspecified laterality Lung location: unspecified part of lung Pneumonia type: due to unspecified organism Qualified Code(s): J18.9 - Pneumonia, unspecified organism Category: Medical Code(s): J18.9 - Pneumonia, unspecified organism (3) Atrial flutter with rapid ventricular response: Status: Acute Category: Medical Code(s): I48.92 - Unspecified atrial flutter (4) COPD exacerbation: Status: Acute Category: Medical Code(s): J44.1 - Chronic obstructive pulmonary disease with (acute) exacerbation (5) Smoking greater than 30 pack years: Status: Acute Category: Social Hx Code(s): F17.210 - Nicotine dependence, cigarettes, uncomplicated (6) Dyspnea on exertion: Status: Acute Category: Medical Code(s): R06.09 - Other forms of dyspnea (7) Hypothyroidism: Status: Chronic Qualifiers: Hypothyroidism type: unspecified Qualified Code(s): E03.9 - Hypothyroidism, unspecified Category: Medical Code(s): E03.9 - Hypothyroidism, unspecified (8) Coronary artery disease: Status: Deleted Qualifiers: Coronary Disease-Associated Artery/Lesion type: [place] artery [place] vs. transplanted heart: [place] heart Associated angina: without angina Q ualified Code(s): I25.10 - Atherosclerotic heart disease of [place] coronary artery without angina pectoris Category: Medical Code(s): I25.10 - Atherosclerotic heart disease of [place] coronary artery without angina pectoris (9) Hypertension: Status: Chronic Qualifiers: Hypertension type: primary hypertension Qualified Code(s): I10 - Essential (primary) hypertension Category: Medical Code(s): I10 - Essential (primary) hypertension (10) Hyperlipidemia: Status: Chronic Qualifiers: Hyperlipidemia type: mixed hyperlipidemia Qualified Code(s): E78.2 - Mixed hyperlipidemia Category: Medical Code(s): E78.5 - Hyperlipidemia, unspecified Plan Delia Buchanan is a 62-year-old female with a medical history significant for COPD (2 L with exertion as needed), current tobacco smoker (4 cigarettes/day), HFrEF (LVEF 25 to 30% on 08/11/2023), A-flutter (on Eliquis, s/p unsuccessful cardioversion August 2023), CAD, hypertension, hyperlipidemia, hypothyroidism presented on 10/22/2023 with 1 week of yellow productive cough, shortness of breath, leg swelling which significantly worsened yesterday. Discussed case with ED attending and decision was made to admit patient for acute on chronic hypoxic, hypercapnic respiratory failure secondary to COPD, HFrEF exacerbation, and A-flutter with RVR. In sinus rhythm after cardioversion on 918. Requiring 3 L oxygen. COPD exacerbation resolved. Cardiology will proceed with [facility] today for workup of HFrEF. Continues to require inpatient management. Problems addressed as follows: #Atrial flutter with RVR, resolved #Acute on chronic HFrEF #Chest pain - Risk stratification for HFrEF: A1c, lipid panel, TSH normal. ? Cardiology consulted, appreciate recommendations. ? Patient was successfully cardioverted to sinus rhythm on 10/27/2023. Rate controlled. ? Started torsemide 20 mg daily, discontinued IV Lasix after good response and now euvolemic. ? Aspirin 81 mg, atorvastatin 40 mg. ? Amiodarone 200 mg twice daily, dose decreased due to patient's nausea. ? Metoprolol succinate 100 mg twice daily. ? GDMT: Jardiance 10 mg, Entresto, spironolactone, metoprolol succinate. ? Continue home Eliquis 5 mg twice daily. She prefers this over Xarelto as she states she does not have a set dinnertime to take Xarelto. ? Goal K+ > 4, Mg > 2. Replete as appropriate. Continue to monitor electrolytes. ? LifeVest ordered and fitted. ? Patient continues to report midsternal chest pain with some radiation to left shoulder. Reproducible to palpation, worse with coughing. ? However, given patient's known CAD and risk factor of smoking and now HFrEF cardiology will proceed with [facility] today. ? Will need close follow-up with cardiology outpatient. Will also benefit from cardiac rehab. #Acute on chronic hypoxic respiratory failure #Acute hypercapnic respiratory failure, resolved ? Most consistent with acute COPD exacerbation and HFrEF exacerbation present on arrival. See separate problems. ? Wean oxygen as tolerated. Currently 3 L. Baseline 2 L. #Acute COPD exacerbation, resolved #Community-acquired pneumonia ? Patient reported 1 week onset of increased cough and productive sputum with color change to yellow on admission. No sick contacts, reports adherence with inhalers. Uses Symbicort and albuterol at home. ? VBG shows new hypercapnia compared to past studies, 56.3. However, compensated with pH 7.33. Mild leukocytosis 12.9. ? Exam reveals bilateral decreased air movement, moderate wheezing, increased work of breathing but improved today. No fever, upper respiratory symptoms. ? CXR does not show acute findings. ? PSI risk class IV. Plan: ? Patient states she is breathing better, exam corroborates this. ? Continue Trelegy 100 daily. Discontinued ipratropium, Xopenex, Pulmicort. ? Finished course of ceftriaxone, azithromycin, prednisone. ? However, respiratory culture revealed moderate stenotrophomonas miltophilia growth. Discussed with pulmonology who advised Bactrim for 10 days. ? Bactrim day 2/10. - Pulmonology consulted, appreciate recommendations. #Hypothyroidism ? continue home levothyroxine 50 mcg. ? Repeat TSH, T4 normal. #CAD, hyperlipidemia ? Aspirin, atorvastatin. CODE STATUS: Full code Diet: Cardiac DVT prophylaxis: Home Eliquis
--- NOTE | 2023-10-28 18:45 | PC.NURSE ---
Alert and oriented. Complained of pain, treated per apr. 2L NC intermittently, with sats >90%. pt received a left heart cath today with no stents placed. radial site and femoral site c/d/i. pt is resting in bed now. pt has had soft bp this shift, but this is her baseline. post op vitals being completed. call light in reach. bed in low and locked position
[2023-10-28] MEDS: ATORVASTATIN 40MG TABLET 40 MG PO (21:25)
[2023-10-29] VITALS: BP 88/58; PULSE 62; PULSE 64; RESP 18; TEMP 36.7; O2SAT 96
[2023-10-29] MEDS: MORPHINE 2MG/ML SYRINGE 2 MG IV ×3 (02:46→10:36)
[2023-10-29 04:00] VITALS: BP 87/51; PULSE 55; RESP 16; TEMP 36.7; O2SAT 91; BMI 22.1
[2023-10-29] MEDS: OXYCODONE 5MG W/APAP 325MG TABLET 1 EACH PO (04:58)
--- NOTE | 2023-10-29 05:44 | PC.NURSE ---
Patient is alert and oriented x4. Patient was observed to have eyes closed, respirations even and unlabored, and no apparent distress throughout the majority of the night. Patient has remained on 3 L of oxygen via nasal cannula due to dropping oxygen saturations earlier this shift post-anesthesia; oxygen sats have remained greater than 90% afterwards. Upon auscultation of the lungs, inspiratory rhonchi was noticed in the left lobe with diminished air movement bilateral lobes. Patient has been getting up with standby assistance to the bedside commode to void; no bowel movement was reported this shift. Patient had a heart cath procedure yesterday during the previous shift; she was educated about post-sedation precautions and to avoid putting any kind of pressure on her right wrist. Her right femoral (stents placed) and right radial wrist (no stents) dressings are clean, dry, and intact thus far. No pain or temperature changes around the site were noted. Patient's blood pressures have been consistently hypotensive but within patient's baseline this shift. Patient continues to run normal sinus rhythm with a bundle branch block on telemetry. Her heart rate was occasionally bradycardic. Patient has complained of lower back pain and chest pain a few times this shift. She has been given morphine and Percocet 5 per APR accordingly; patient has reported some relief and was able to rest. She has also received her scheduled medications per APR. Patient was given broth, peanut butter and crackers, veggie soup, and Pepsi sodas for a meal yesterday evening. At this time, patient is resting supine in bed. She does not have any further complaints. No acute changes thus far. Call light within reach.
--- NOTE | 2023-10-29 06:06 | PC.NURSE ---
Patient is alert and oriented x4. Patient was observed to have eyes closed, respirations even and unlabored, and no apparent distress throughout the majority of the night. Patient has remained on 3 L of oxygen via nasal cannula due to dropping oxygen saturations earlier this shift post-anesthesia; oxygen sats have remained greater than 90% after flow increase. Upon auscultation of the lungs, inspiratory rhonchi was noticed in the left lobe with, diminished air movement in both lobes. Patient has been getting up with standby assistance to the bedside commode to void; no bowel movement was reported this shift. Patient had a left heart cath procedure yesterday during the previous shift; she was educated about post-sedation precautions and to avoid putting any kind of pressure on her right wrist. No pain or temperature changes were noted around the sites. Patient's blood pressures have been consistently hypotensive but within patient's baseline this shift. Patient continues to run normal sinus rhythm with a bundle branch block on telemetry. Her heart rate was occasionally bradycardic. Patient has complained of back pain and chest pain a few times this shift. She has been given morphine and Percocet 5 per APR accordingly; patient has reported some relief and was able to rest. She has also received her scheduled medications per APR. Patient was given broth, peanut butter and crackers, veggie soup, and Pepsi sodas for a meal yesterday evening. Post-op vitals were completed this shift. Patient is resting supine in bed at this time. She does not have any further complaints. No acute changes thus far. Call light within reach.
[2023-10-29] MEDS: FLUTICASONE/UMECLIDIN/VILANTER 100/62.5/25MCG INHALER 1 PUFF IH (06:19)
[2023-10-29] MEDS: LEVOTHYROXINE 50MCG (0.05MG) TAB 50 MCG PO (06:30)
[2023-10-29 08:00] VITALS: BP 93/55; PULSE 57; PULSE 60; RESP 16; TEMP 36.7; O2SAT 90
[2023-10-29 08:25] LABS: Chloride 92 mmol/L (98-107); Sodium 134 mmol/L (136-145)
[2023-10-29 08:26] LABS: Potassium 4.9 mmoL/L (3.5-5.1)
[2023-10-29 08:29] LABS: Anion Gap 9.9 mEq/L (5-15); Blood Urea Nitrogen 61 mg/dl (7-17); Calcium 8.1 mg/dl (8.4-10.2); Carbon Dioxide 37 mmol/L (22.0-30.0); Creatinine Clearance Estimated 49 mL/min (50-200); Estimated Glomerular Filt Rate 38 ml/min (>60); GFR (African American) 46 ML/MIN (>60); Glucose 137 mg/dl (74-100); Magnesium 2.4 mg/dl (1.6-2.3)
--- NOTE | 2023-10-29 09:45 | P.PN_ITS ---
Subjective *Date: 10/29/23 *Time: 12:28 Interval history: No acute respiratory vents overnight. Patient denies any new respiratory complaints. Pulmonology Exam Inpatient Vital signs and Labs for Last 24 Hours: Temp Pulse Resp BP Pulse Ox O2 Del Method O2 Flow Rate 98.0 F 55 L 16 87/51 L 91 L Nasal Cannula 3 10/29/23 04:00 10/29/23 04:00 10/29/23 04:00 10/29/23 04:00 10/29/23 04:00 10/29/23 06:57 10/29/23 06:57 FiO2 28 10/26/23 18:53 Laboratory Results - last 24 hr 10/29/23 07:50: Sodium 134 L, Potassium 4.9, Chloride 92 L, Carbon Dioxide 37 H, Anion Gap 9.9, BUN 61 H D, Creatinine 1.40 H, Estimated Creat Clear 49, Estimated GFR 38 L, Est GFR ( Amer) 46 L, Glucose 137 H, Calcium 8.1 L, Magnesium 2.4 H Temp Pulse Resp BP Pulse Ox O2 Del Method O2 Flow Rate 96.8 F L 90 17 100/69 L 96 Nasal Cannula 2 10/27/23 07:39 10/27/23 08:00 10/27/23 07:39 10/27/23 07:39 10/27/23 07:39 10/27/23 06:55 10/27/23 06:55 FiO2 28 10/26/23 18:53 Laboratory Results - last 24 hr 10/26/23 14:10: WBC 10.3, RBC 5.48 H, Hgb 15.2, Hct 52.0 H, MCV 94.9, MCH 27.7, MCHC 29.2 L, RDW 16.1, Plt Count 455 H, MPV 7.0 L, Neut % (Auto) 81.2 H, Lymph % (Auto) 11.4, [place] % (Auto) 5.6, Eos % (Auto) 1.6, Baso % (Auto) 0.2, Neut # (Auto) 8.4 H, Lymph # (Auto) 1.2, [place] # (Auto) 0.6, Eos # (Auto) 0.2, Baso # (Auto) 0.0, Sodium 138, Potassium 3.8, Chloride 92 L, Carbon Dioxide 39 H, Anion Gap 10.8, BUN 44 H, Creatinine 1.10 H D, Estimated Creat Clear 63, Estimated GFR 51 L, Est GFR ( Amer) 61 D, Glucose 103 H, Lactate 1.0, Calcium 8.6, Total Bilirubin 0.4, Direct Bilirubin 0.3, Conjugated Bilirubin 0.0, Indirect Bilirubin 0.1, Unconjugated Bilirubin 0.1, AST 68 H D, ALT 65, Alkaline Phosphatase 94, Troponin I < 0.01, Total Protein 7.5, Albumin 4.1 10/27/23 06:02: WBC 10.2, RBC 5.38, Hgb 14.8, Hct 50.6 H, MCV 94.0, MCH 27.5, MCHC 29.3 L, RDW 16.2, Plt Count 459 H, MPV 7.2 L, Neut % (Auto) 84.9 H, Lymph % (Auto) 10.2, [place] % (Auto) 3.7, Eos % (Auto) 1.1, Baso % (Auto) 0.2, Neut # (Auto) 8.7 H, Lymph # (Auto) 1.0, [place] # (Auto) 0.4, Eos # (Auto) 0.1, Baso # (Auto) 0.0, Sodium 135 L, Potassium 4.1, Chloride 91 L, Carbon Dioxide 36 H, Anion Gap 12.1, BUN 56 H D, Creatinine 1.30 H, Estimated Creat Clear 53, Estimated GFR 42 L, Est GFR ( Amer) 51 L, Glucose 124 H D, Lactate 1.1, Calcium 8.7, Total Bilirubin 0.4 10/27/23 06:02: Total Bilirubin 0.4, Direct Bilirubin 0.2, Conjugated Bilirubin 0.0, Indirect Bilirubin 0.2, Unconjugated Bilirubin 0.2, AST 37 H D 10/27/23 06:02: AST 36, ALT 52 10/27/23 06:02: ALT 52, Alkaline Phosphatase 79 10/27/23 06:02: Alkaline Phosphatase 79, Troponin I < 0.01, Total Protein 6.9 10/27/23 06:02: Total Protein 7.0, Albumin 3.6 D 10/27/23 06:02: Albumin 3.6, Globulin 3.3 H, Albumin/Globulin Ratio 1.1, TSH 1.56 D, Free T4 1.03 I & O for Labs for Last 24 Hours: Intake & Output 10/26/23 10/27/23 10/28/23 10/29/23 23:59 23:59 23:59 23:59 Intake Total 1320 / 1500 420 / 540 390 / 1017 967 / 967 Output Total 1200 / 1200 0 / 0 1400 / 1400 600 / 600 Balance 120 / 300 420 / 540 -1010 / -383 367 / 367 Weight 161 lb 9 oz 160 lb 11.2 oz 160 lb 4.417 oz 158 lb 8.198 oz Intake & Output 10/24/23 10/25/23 10/26/23 10/27/23 23:59 23:59 23:59 23:59 Intake Total 2611 / 2833 1389.18 / 1389.18 1320 / 1500 420 / 420 Output Total 5700 / 5700 4375 / 4375 1200 / 1200 0 / 0 Balance -3089 / -2867 -2985.82 / -2985.82 120 / 300 420 / 420 Weight 152 lb 6 oz 152 lb 5.431 oz 161 lb 9 oz 160 lb 11.2 oz Microbiology Reports for the Last 24 Hours: Microbiology 10/23/23 13:18 Sputum - Expectorated Sputum Gram Stain - Final 10/23/23 13:18 Sputum - Expectorated Sputum Sputum Culture - Final Stenotrophomonas maltophilia 10/22/23 12:27 Blood Blood Culture - Preliminary NO GROWTH AFTER 4 DAYS 10/22/23 11:30 Blood Blood Culture - Preliminary NO GROWTH AFTER 4 DAYS Constitutional: Present moderate distress Head: Present normocephalic and atraumatic ENT: Present normal exam, normal oropharynx and mucous membranes moist Neck: Present normal inspection and full ROM Respiratory: Present prolonged expiratory phase, respiratory distress, wheezes and able to speak in complete sentences Cardiac: Present S1/S2, Tachycardia and radial pulses present GI: Present soft and distention; Absent tenderness or guarding Rectal (female): Present deferred (female): Present deferred Skin: Present intact; Absent cyanosis or jaundice Neuro: Present alert, awake and oriented x 3 Extremities: Present normal inspection; Absent clubbing or cyanosis Psychiatric: Present normal affect and cooperative Assessment and Plan *Assessment and plan (1) COPD exacerbation: Status: Acute Category: Medical Code(s): J44.1 - Chronic obstructive pulmonary disease with (acute) exacerbation (2) PNA (pneumonia): Status: Acute Qualifiers: Laterality: unspecified laterality Lung location: unspecified part of lung Pneumonia type: due to unspecified organism Qualified Code(s): J18.9 - Pneumonia, unspecified organism Category: Medical Code(s): J18.9 - Pneumonia, unspecified organism Plan Ms. Buchanan is a 62-year-old female with reported history of COPD chronic hypoxic respiratory failure heart failure with reduced EF atrial flutter CAD hypertension presented to the ER on 10/22/2019 for worsening respiratory status cough and productive phlegm. Patient since and has been managed for atrial flutter with RVR, CHF exacerbation and possible COPD exacerbation/community-acquired pneumonia. Receiving ceftriaxone and azithromycin along with prednisone and nebulization therapies. Cardiology following. Patient noted to have worsening respiratory distress yesterday with wheezing and pulmonary was consulted for further evaluation and management. CTA upon admission evidence of pulmonary embolism but no dense consolidation with airspace changes. No pleural effusions. Concerning right upper lobe nodule/scarring. Afebrile. Hemodynamically stable with no evidence of leukocytosis. Stable oxygen requirements. Sputum cultures from admission Stenotrophomonas maltophilia. Patient received ceftriaxone azithromycin. Labs revealed, acute kidney injury with worsening BUN,creatinine and GFR from yesterday, primary team following. On examination this morning patient does not appear to be in any respiratory distress. Mild expiratory wheezing noted on auscultation. On home baseline 2 L nasal abdomen supplementation. CT chest no dense consolidative/airspace changes noted. Interval update: No acute respiratory vents overnight. Stable oxygen requirements. Continue to receive Bactrim. Plan: Bactrim DS BID really dosed to complete a total of 7 day course Continue Trelegy 100 inhaler along with DuoNebs QID PRN Recommend to complete a total of 5-day course of prednisone from admission #Thank you for involving pulmonary in this patient care. Will follow the patient in pulmonary clinic 1 to 2 weeks post discharge
[2023-10-29] MEDS: APIXABAN 5MG TABLET 5 MG PO (10:33)
[2023-10-29] MEDS: CITALOPRAM 10MG TABLET 10 MG PO (10:33)
[2023-10-29] MEDS: METOPROLOL SUCCINATE XL 100MG TABLET 100 MG PO (10:33)
[2023-10-29] MEDS: SPIRONOLACTONE 25MG TABLET 25 MG PO (10:33)
[2023-10-29] MEDS: EMPAGLIFLOZIN 10MG TABLET 10 MG PO (10:33)
[2023-10-29] MEDS: PANTOPRAZOLE 40MG TABLET 40 MG PO (10:33)
[2023-10-29] MEDS: AMIODARONE 200MG TABLET 200 MG PO (10:33)
[2023-10-29] MEDS: ASPIRIN EC 81MG TABLET 81 MG PO (10:33)
[2023-10-29] MEDS: TORSEMIDE 20MG TABLET 20 MG PO (10:33)
[2023-10-29] MEDS: predniSONE 20MG TAB 40 MG PO (10:34)
--- NOTE | 2023-10-29 10:43 | P.PN_ITS ---
Subjective Subjective Date: 10/29/23 Time: 08:30 Principal diagnosis: HFrEF, atrial flutter with RVR Interval history: This is a 8-year-old patient who presented to the emergency department shortness of breath and chest pain. The patient was admitted for atrial fibrillation with RVR and acute HFrEF. The patient underwent ALLA and cardioversion for persistent atrial fibrillation and is now in sinus rhythm. She will remain on amiodarone for atrial fibrillation suppression and Eliquis for long-term anticoagulation. She also underwent left cardiac catheterization yesterday which showed normal coronary arteries and the severe LV dysfunction. This morning she is complaining of back pain. She states that her back has been hurting since she has been hospitalized. She states her shortness of breath and lower extremity edema have improved. She denies any chest pain or pressure. She denies any fever, chills, nausea, vomiting or diarrhea this morning. She denies orthopnea and is lying flat when I enter the room. Exam Data for Last 24 hours Vital signs and Labs for Last 24 Hours: Temp Pulse Resp BP Pulse Ox O2 Del Method O2 Flow Rate 98.1 F 57 L 16 93/55 L 90 L Nasal Cannula 3 10/29/23 08:00 10/29/23 08:00 10/29/23 08:00 10/29/23 08:00 10/29/23 08:00 10/29/23 06:57 10/29/23 06:57 FiO2 28 10/26/23 18:53 Laboratory Results - last 24 hr 10/29/23 07:50: Sodium 134 L, Potassium 4.9, Chloride 92 L, Carbon Dioxide 37 H, Anion Gap 9.9, BUN 61 H D, Creatinine 1.40 H, Estimated Creat Clear 49, Estimate d GFR 38 L, Est GFR ( Amer) 46 L, Glucose 137 H, Calcium 8.1 L, Magnesium 2.4 H I & O for Last 24 hours: Intake & Output 10/26/23 10/27/23 10/28/23 10/29/23 23:59 23:59 23:59 23:59 Intake Total 1320 / 1500 420 / 540 390 / 1017 967 / 967 Output Total 1200 / 1200 0 / 0 1400 / 1400 600 / 600 Balance 120 / 300 420 / 540 -1010 / -383 367 / 367 Weight 161 lb 9 oz 160 lb 11.2 oz 160 lb 4.417 oz 158 lb 8.198 oz Constitutional Constitutional: no acute distress and average body habitus *Routine HEENT Exam Head: Present normocephalic and atraumatic ENT: Present mucous membranes moist *Routine Neck Exam Neck: Present supple, full ROM and normal carotid upstroke; Absent JVD, carotid bruit or lymphadenopathy *Routine Respiratory Exam Respiratory: Present prolonged expiratory phase; Absent wheezes Comments: Moderate wheezing bilateral lung ignacio. *Routine Cardiovascular Exam Cardiovascular: Present RRR, Normal S1 and Normal S2; Absent murmur or gallop *Routine Abdominal Exam Abdominal: Present soft and normoactive bowel sounds; Absent tenderness, distended or organomegaly *Routine Extremities Exam Extremities: Present full ROM, pulses intact and normal capillary refill; Absent cyanosis, clubbing or edema *Routine Skin Exam Skin: Present intact and warm; Absent erythema *Routine Neurological Exam Neurological: Present alert, oriented X3 and CN II-XII intact; Absent sensory deficit or motor deficit Routine Psychiatric Exam Psychiatric: Present normal affect Progress Note: A&P Assessment and plan (1) HFrEF (heart failure with reduced ejection fraction): Status: Acute (2) Atrial flutter: Status: Acute (3) Afib: Status: Acute (4) COPD exacerbation: Status: Acute (5) PNA (pneumonia): Status: Acute (6) Thoracic back pain: Status: Acute (7) Hypertension: Status: Chronic (8) Hyperlipidemia: Status: Chronic (9) Tobacco dependence: Status: Chronic (10) Normal coronary arteries: Status: Acute Assessment and Plan Assessment and Plan for All Diagnoses:: Plan: 1. The patient was admitted to the hospital with atrial fibrillation/flutter with RVR. She did rate control on an amiodarone drip and then was converted over to oral amiodarone. She underwent ALLA with cardioversion and is now in sinus rhythm. 2. She was restarted on a lower dose of amiodarone yesterday and remains in sinus rhythm. 3. Continue Eliquis for long-term anticoagulation due to atrial fibrillation. 4. Left cardiac catheterization yesterday shows normal coronary arteries with severe LV dysfunction. Stop aspirin. 5. The patient does have acute exacerbation of HFrEF. Her ejection fraction is down to 20%. The patient is at increased risk of sudden cardiac due to her severe LV dysfunction. The patient has been fitted for her LifeVest. 6. The patient was diuresed with IV Lasix for her HFrEF. She was converted over to oral torsemide yesterday. She is tolerating this well. Continue tors emide on an outpatient basis. 7. Continue metoprolol, spironolactone and Jardiance for HFrEF. 8. Stop Entresto due to hypotension. 9. Consider an ablation on an outpatient basis. 10. Her LDL goal is less than 100. Her LDL is 75. She is on a statin. 11. The patient's renal function is stable at 1.4. The patient is to be Prerenal to keep her out of pulmonary edema. 12. The patient is stable for discharge home today from a cardiac standpoint. The patient will need to follow-up in cardiology clinic next week. The patient can be discharged on the following cardiac medications: Torsemide 20 mg p.o. daily, spironolactone 25 mg p.o. daily, Protonix 40 mg p.o. daily, metoprolol succinate 100 mg p.o. twice daily, Jardiance 10 mg p.o. daily, Lipitor 40 mg p.o. nightly, Eliquis 5 mg p.o. twice daily, amiodarone 200 mg p.o. twice daily. Thank you for the opportunity to help participate in the care of this patient. All recommendations and orders are per Dr. Ruano.
[2023-10-29] MEDS: SULFA/TRIMETHOPRIM 1 TABLET 1 EACH PO (10:44)
[2023-10-29 12:00] VITALS: PULSE 60
--- NOTE | 2023-11-01 15:45 | CARE MANAGER ---
Contacted patient related to hospital discharge. She states she is about the same. She has all her medication is aware of all her appointments. She denies questions or concerns at this time. TENISHA Tarango
== END 2023-10-29 13:59 | disposition home or self-care (01) | DRG 286 ==
LOC: ER 15:06 → 2ND 16:11
PROVIDERS: Internal Medicine; Nurse Practitioner Family; Student in an Organized Health Care Education/Training Program; Admitting Provider Internal Medicine Adolescent Medicine; Emergency Provider Emergency Medicine; Visit Provider Internal Medicine Adolescent Medicine
PROC: 4A023N7 Measurement of Cardiac Sampling and Pressure, Left Heart, Percutaneous Approach (ICD-10-PCS; principal; 2023-10-28 13:50)
DX: I11.0 Hypertensive heart disease with heart failure (principal); I50.23 Acute on chronic systolic (congestive) heart failure; J18.9 Pneumonia, unspecified organism; J96.21 Acute and chronic respiratory failure with hypoxia; J44.1 Chronic obstructive pulmonary disease with (acute) exacerbation; I48.92 Unspecified atrial flutter; J44.0 Chronic obstructive pulmonary disease with (acute) lower respiratory infection; J44.9 Chronic obstructive pulmonary disease, unspecified; Z99.81 Dependence on supplemental oxygen; I48.91 Unspecified atrial fibrillation; E78.5 Hyperlipidemia, unspecified; I25.10 Atherosclerotic heart disease of native coronary artery without angina pectoris; I27.20 Pulmonary hypertension, unspecified; I50.30 Unspecified diastolic (congestive) heart failure; F17.210 Nicotine dependence, cigarettes, uncomplicated; E03.9 Hypothyroidism, unspecified; M54.6 Pain in thoracic spine; I42.8 Other cardiomyopathies
CPT/HCPCS: 36415; 71045; 71250; 71275; 80048; 80050; 80053; 80061; 80076; 82803; 83036; 83605; 83735; 83880; 84439; 84443; 84484; 85007; 85025; 85027; 85610; 85730; 87040; 87070; 87077; 87186; 87205; 87265; 87486; 87581; 87632; 87635; 92960; 93005; 93270; 93308; 93312; 93319; 93458; 94640; 94761; 97163; 97166; 99152; 99291; C1725; C1769; J0282; J0456; J0696; J1170; J1200; J1644; J1885; J1940; J2250; J2270; J2405; J2919; J3010; J7030; J7050; J7060; J7614; J7620; J7644; Q9967

== ENCOUNTER 2023-11-02 13:00 | Outpatient (CLI) | payer MEDICAID, SELFPAY ==
[2023-11-02] MEDS: LEVALBUTEROL 1.25MG/3ML NEB 1.25 MG IH (14:30)
[2023-11-02 15:09] VITALS: PULSE 56; PULSE 64
== END 2023-11-02 23:59 | disposition home or self-care (01) ==
LOC: RT 13:00
PROVIDERS: PCP Nurse Practitioner; Visit Provider Internal Medicine Pulmonary Disease
DX: R06.09 Other forms of dyspnea (principal)
CPT/HCPCS: 94060; 94618; 94640; 94726; 94729; J7614

== ENCOUNTER 2024-01-23 00:30 | Observation (INO) | payer MEDICAID, SELFPAY ==
[2024-01-23] VITALS (15 sets, daily range): BP systolic 134–145; BP diastolic 69–107; PULSE 59–91; RESP 16–26; TEMP 36.5–37.1; O2SAT 92–100; BMI 21.4; BMI 21.9
--- NOTE | 2024-01-23 00:43 | PC.NURSE ---
Pt in sinus rythm per continuous heart monitor
--- NOTE | 2024-01-23 00:44 | XR_ITS ---
PROCEDURE INFORMATION: Exam: XR Chest Exam date and time: 01/23/2024 12:53 AM Age: 63 years old Clinical indication: Cough and shortness of breath; Additional info: Cough SOA copd TECHNIQUE: Imaging protocol: Radiologic exam of the chest. Views: 2 views. COMPARISON: CT CHEST WO CON 10/27/2023 4:52 PM FINDINGS: Lungs: No evidence of acute pulmonary disease or infiltrates Pleural spaces: No large effusion or pneumothorax. Heart/Mediastinum: Stable cardiac and mediastinal contours. Vasculature: There are calcifications of the aortic arch. Bones/joints: Status post right shoulder arthroplasty. IMPRESSION: No dense parenchymal consolidation, pleural effusion, or pneumothorax.
--- NOTE | 2024-01-23 00:44 | ECG_ITS ---
APPROVED REPORT Exam: Resting ECG HR:69 bpm ECG Measurements Heart Rate 69 AXES VT 182 P 77 QRSd 134 QRS 75 QT 434 T 84 QTc 452 Conclusion SINUS RHYTHM INTRAVENTRICULAR CONDUCTION DELAY [130+ ms QRS DURATION] ABNORMAL ECG UNCONFIRMED REPORT Electronically signed by : LISA OSUNA, 01/24/2024 23:24:57
--- NOTE | 2024-01-23 00:46 | ED_ITS ---
Discharge Plan Disposition Patient Disposition: Admitted Prescriptions Prescriptions: No Action nicotine 14 mg/24 hr patch 24 hour 1 patch transdermal DAILY Qty: 28 2RF pantoprazole 40 mg tablet,delayed release (DR/EC) 40 mg PO DAILY Qty: 90 3RF diclofenac sodium 75 mg tablet,delayed release (DR/EC) 75 mg PO BID lidocaine [Lidoderm] 5 % adhesive patch,medicated 1 patch topical DAILY aspirin 81 mg tablet,delayed release (DR/EC) 81 mg PO DAILY Qty: 100 3RF atorvastatin 40 mg tablet 40 mg PO HS Qty: 30 3RF famotidine 40 mg tablet 40 mg PO BID Qty: 60 5RF spironolactone 25 mg tablet 12.5 mg PO DAILY 30 Days Qty: 30 4RF torsemide 20 mg tablet 20 mg PO DAILY 30 Days Qty: 30 4RF sulfamethoxazole-trimethoprim 800-160 mg tablet 1 tab PO BID 7 Days Qty: 30 4RF amiodarone 200 mg tablet 200 mg PO BID 30 Days Qty: 60 4RF metoprolol succinate 100 mg tablet extended release 24 hr 100 mg PO BID 30 Days Qty: 60 4RF albuterol sulfate 8.5 GM HFA aerosol inhaler 1 puff inhalation Q4HP PRN (Reason: Shortness Of Breath) budesonide-formoterol 10.2 GM HFA aerosol inhaler 2 puffs inhalation BID Xarelto 20 mg tablet 20 mg PO QPMWITHMEAL Rx Instructions: must administer with evening meal Trelegy Ellipta 100-62.5-25 mcg Blister With Device 1 inh inhalation DAILY 30 Days Qty: 60 0RF citalopram 10 mg tablet 10 mg PO DAILY diclofenac sodium 1 % gel 1 ea TOPICAL QIDP PRN (Reason: Mild Pain (Scale Score 1-4)) levothyroxine 50 mcg tablet 50 mcg PO DAILY Jardiance 10 mg tablet 10 mg PO DAILY Referrals Follow up/Referrals: Provider,Referral, MD [Referring] - See instructions Clinical Impressions Clinical Impression: Acute and chronic respiratory failure with hypercapnia, COPD exacerbation, JAYJAY (acute kidney injury), Hyperkalemia Print Language Print Language: German Discharge ED Provider: Codi Dobson General Chief Complaint: Shortness of Breath/Dyspnea Stated Complaint: soa Time Seen by Provider: 01/23/24 00:37 Mode of Arrival: EMS Source of Information: Patient Limitations: No Limitations Description of Symptoms (Recalled from ER Triage Doc. by RN): Pt arrived via ems w/ c/o SOA/chest pain x2-3 days. Pt w/ hx of copd, wears o2 as needed at home. EMS reports pt placed herself on her own o2 [employer], currently 4 L NC. Pt recieved 2 duonebs, 324 ASA, and 125mg of solumedrol enroute. History of Present Illness HPI narrative: 63-year-old female with history of COPD, emphysema, reports she typically wears 2 to 3 L nasal cannula at home, also has history of atrial fibrillation on Xarelto presents to the ER with concerns of cough and shortness of breath for the last 2 to 3 days. She reports her coughing is now causing left-sided chest pain as well. Patient reports she has been taking her home breathing treatments and they seem to help however she continues to still have worsening of her symptoms. She denies fevers, chills, she states she has had mild nausea relieved by Zofran that she took at home, no vomiting or diarrhea, no abdominal pain or dysuria. She reports nonproductive cough and posttussive dry heaving without emesis. She states she has been taking her home medications as prescribed including her water pill. She reports no runny nose or sore throat. EMS reports patient received 2 DuoNebs, 324 of aspirin, and 125 mg of IV Solu- Medrol and route prior to arrival. Patient reports she feels somewhat improved after these nebulizer treatments but is currently saturating 97% on 6 L nasal cannula. Related Data Home Medications ?Medication ?Instructions ?Recorded ?Confirmed albuterol sulfate 90 mcg/actuation 1 puff inhalation Q4HP PRN 01/10/21 11/04/23 aerosol inhaler Shortness Of Breath budesonide-formoterol HFA 160 2 puffs inhalation BID 01/10/21 11/04/23 mcg-4.5 mcg/actuation aerosol inhaler citalopram 10 mg tablet 10 mg PO DAILY 03/01/22 11/04/23 diclofenac sodium 1 % topical gel 1 ea topical QIDP PRN Mild Pain 03/01/22 11/04/23 (Scale Score 1-4) levothyroxine 50 mcg tablet 50 mcg PO DAILY 03/01/22 11/04/23 diclofenac sodium 75 mg 75 mg PO BID 04/13/23 11/04/23 tablet,delayed release lidocaine 5 % topical patch 1 patch topical DAILY 04/13/23 11/04/23 (Lidoderm) empagliflozin 10 mg tablet 10 mg PO DAILY 07/19/23 11/04/23 (Jardiance) rivaroxaban 20 mg tablet (Xarelto) 20 mg PO QPMWITHMEAL 10/23/23 11/04/23 Previous Rx's ?Medication ?Instructions ?Recorded pantoprazole 40 mg tablet,delayed 40 mg PO DAILY GERD #90 tabs 03/04/21 release aspirin 81 mg tablet,delayed 81 mg PO DAILY #100 tabs 01/28/23 release atorvastatin 40 mg tablet 40 mg PO HS Cholesterol #30 tabs 01/28/23 famotidine 40 mg tablet 40 mg PO BID acid reflux #60 tabs 01/28/23 nicotine 14 mg/24 hr daily 1 patch transdermal DAILY #28 ea 07/27/23 transdermal patch fluticasone fur. 100 mcg-umeclid 1 inh inhalation DAILY 30 days #60 10/29/23 62.5 mcg-vilant 25 mcg ea inhalat.powder (Trelegy Ellipta) amiodarone 200 mg tablet 200 mg PO BID 30 days #60 tabs 12/08/23 metoprolol succinate 100 mg 100 mg PO BID 30 days #60 tabs 12/08/23 tablet,extended release 24 hr spironolactone 25 mg tablet 12.5 mg (1/2 x 25 mg) PO DAILY 30 12/08/23 days #30 tabs sulfamethoxazole 800 1 tab PO BID 7 days #30 tabs 12/08/23 mg-trimethoprim 160 mg tablet torsemide 20 mg tablet 20 mg PO DAILY 30 days #30 tabs 12/08/23 Allergies Allergy/AdvReac Type Severity Reaction Status Date / Time codeine Allergy Mild Nausea Verified 11/04/23 11:13 penicillin G (PENICILLIN G) Allergy Mild I-RASH/NV Verified 11/04/23 11:13 acetaminophen (ACETAMINOPHEN) AdvReac Mild NOT Verified 11/04/23 11:13 ALLERGIC. NEED TO WATCH DUE TO LIVER [facility] Disclaimer: The information contained in this section may have been updated after the patient was seen, as this information can be updated by other users. Medical History Normal coronary arteries Unstable angina Atypical angina HFrEF (heart failure with reduced ejection fraction) Atrial flutter with rapid ventricular response Elevated liver enzymes Smoking greater than 30 pack years Dyspnea on exertion Pulmonary emphysema Dyspnea Afib Sinus bradycardia Chronic, continuous use of opioids Right rotator cuff tear Hypothyroidism Atrial fibrillation/flutter Pulmonary hypertension Hepatitis C Tobacco dependence (HFpEF) heart failure with preserved ejection fraction Hyperlipidemia Hypertension COPD (chronic obstructive pulmonary disease) Surgical History History of hysterectomy History of surgery on right wrist History of mandibular surgery History of left heart catheterization History of cholecystectomy S/P rotator cuff repair H/O splenectomy History of cardioversion Family History Mother Stroke Father Coronary artery disease Social History Smoking Status: Current some day smoker tobacco type: cigarettes packs per day: 1 years smoked: 40 second hand exposure: Yes alcohol intake: never substance use type: denies use current occupational status: unemployed and disabled Travel in the last 8 weeks: Inside the [place] household members: none housing: house lives independently: Yes marital status: single number of children: 3 current occupation: Disabled caffeine: Yes Have you lived/traveled outside [place] in past 30 days?: No Contact w/someone who lives/traveled outside [place] past 30 days?: No Exposure to someone with infectious disease in past 14 days?: No Do you have a fever (greater than 100.4 F or 38 C)?: No Have you tested positive for COVID-19: No Exposed to someone with COVID-19 in past 14 days?: No Do you have a sore throat?: No Do you have a cough?: No Do you have any weakness?: No Do you have any diarrhea?: No Are you experiencing any unusual bleeding?: No Do you have any muscle aches/pain?: No Do you have any abdominal pain?: No Are you experiencing loss of taste or smell?: No Other Medical History Have you received the Flu Vaccine for this season: No Have you received the Pneumonia Vaccine: No ROS Obtained: Yes Systems reviewed as appropriate & no additional complaints except as documented ROS per HPI Physical Exam General General appearance: alert Comment: Chronically ill-appearing, mildly tachypneic Head Head exam: atraumatic and normocephalic Eye Eye exam: Present PERRL and EOMI ENT ENT exam: Present normal oropharynx and mucous membranes moist Neck Neck exam: Present normal inspection and full ROM Chest Chest inspection: Present symmetric chest wall rise and tenderness (Mild left- sided chest wall tenderness without findings of trauma) Respiratory Respiratory exam: Present respiratory distress (Mild respiratory distress with tachypnea, speaking in shortened sentences), wheezes (Diffuse expiratory), prolonged expiratory phase and other (Mild tachypnea, saturating 95 to 97% on 6 L nasal cannula); Absent normal lung sounds bilaterally (Diffuse wheezes, diminished breath sounds worse on the left than the right) or stridor Cardiovascular Cardiovascular exam: Present regular rate and normal rhythm Abdominal Exam Abdominal exam: Present soft; Absent distention, tenderness, guarding or rebound Extremities Exam Extremities exam: Present full ROM and edema (Very mild +1 pitting edema bilateral lower extremity) Back Exam Back exam: Present full ROM Neurological Exam Neurological exam: Present alert, oriented X3 and CN II-XII intact; Absent motor sensory deficit Psychiatric Psychiatric exam: Present normal affect and normal mood Skin Skin exam: Present warm and dry HEART Score HEART Score HEART Score assessment performed?: Yes History (anamnesis): Slightly suspicious ECG: Non-specific disturbance Age: 45-65 years Risk factors: 3 or more risk factors Troponin: </= normal limit HEART Score: 4 Critical Care Critical Care Time Critical Care Time: Yes Attestation: On 01/23/24, the high probability of a clinically significant, sudden or life threatening deterioration of the following system(s) required my full and direct attention, intervention and personal management. The time I documented below is in addition to time spent performing reported procedures but includes the following listed in this critical care notation. Total Time Total Critical Care Time: 35 Medical Decision Making Medical Records Medical records reviewed: Yes I reviewed the patient's medical records. MR Comment: Patient has had admissions this year for HFpEF, A-fib with RVR, COPD exacerbation, acute on chronic respiratory failure. Most recent admission was October based on my review of records. Alberto Inquiry Pt receiving controlled substance: No Vital Signs Vital Signs: 01/23/24 00:31 01/23/24 01:33 Temperature 98.0 F Temperature Source Tympanic Pulse Rate 91 H Pulse Rate [Apical] 69 Respiratory Rate 26 H Blood Pressure [Right Arm] 145/107 H Blood Pressure Mean [Right Arm] 119 02 Sat by Pulse Oximetry 95 Oxygen Delivery Method Nasal Cannula Oxygen Flow Rate (LPM) 4 Lab Data Labs: Lab Results 01/23/24 00:43: VBG pH 7.21 L, VBG pCO2 66.1 H, VBG pO2 40.6 H, VBG HCO3 25.8, V BG Total CO2 27.8 H, VBG O2 Saturation 69.1, VBG Base Excess -2.1, VBG Lactic Acid 2.1 H 01/23/24 01:13: WBC 8.1, RBC 4.89, Hgb 14.6, Hct 44.9, MCV 91.9, MCH 29.9, MCHC 32.5, RDW 19.3 H, Plt Count 293, MPV 8.8, Neut % (Auto) 45.6, Lymph % (Auto) 26.5, Grundy % (Auto) 5.0, Eos % (Auto) 21.9 H, Baso % (Auto) 1.1, Neut # (Auto) 3.7, Lymph # (Auto) 2.1, Grundy # (Auto) 0.4, Eos # (Auto) 1.8 H, Baso # (Auto) 0.1, PT 14.8 H, INR 1.36 H, D-Dimer 0.93 H, Sodium 139, Potassium 5.6 H, C hloride 108 H, Carbon Dioxide 24, Anion Gap 12.6, BUN 51 H, Creatinine 1.90 H, Estimated Creat Clear 34, Estimated GFR 27 L, Est GFR ( Amer) 33 L, G lucose 102 H, Calcium 9.0, Total Bilirubin 0.4, AST 43 H, ALT 36, Alkaline Phosphatase 126, Troponin I < 0.01, NT-Pro-B Natriuret Pep 155 H, Total Protein 7.5, Albumin 4.2, Globulin 3.3 H, Albumin/Globulin Ratio 1.3 01/23/24 02:08: VBG pH 7.34, VBG pCO2 41.6, VBG pO2 81.2 H, VBG HCO3 21.9 L, VBG Total CO2 23.2, VBG O2 Saturation 95.4 H, VBG Base Excess -3.8 L, VBG Lactic Acid 1.5 01/23/24 01:13 01/23/24 01:13 Response Orders (Tests/Meds): ED MEDICATIONS Generic Name Dose Route Start Last Admin Trade Name Freq PRN Reason Stop Dose Admin Lactated Ringer's 1,000 mls @ 999 mls/hr 01/23/24 02:22 Lactated Ringer's 1000 Ml Bag IV 01/23/24 03:22 .[id number] ONE Discontinued Medications Generic Name Dose Route Start Last Admin Trade Name Freq PRN Reason Stop Dose Admin Albuterol/Ipratropium 3 ml 01/23/24 00:43 01/23/24 01:32 Ipratropium/Albuterol 3 Ml Neb IH 01/23/24 00:44 3 ml ONCE ONE Administration Morphine Sulfate 4 mg 01/23/24 00:43 01/23/24 01:24 Morphine 4mg/Ml Syringe IV 01/23/24 00:44 4 mg ONCE ONE Administration Ondansetron HCl 4 mg 01/23/24 00:43 01/23/24 01:24 Ondansetron 4mg/2ml Vial IV 01/23/24 00:44 4 mg ONCE ONE Administration ORDERS Category Date Time Status XR chest 2V Stat Exams 01/23/24 00:44 Completed Complete Blood Count Auto Diff Stat Lab 01/23/24 01:13 Completed Comprehensive Metabolic Panel Stat Lab 01/23/24 01:13 Completed D-Dimer Stat Lab 01/23/24 01:13 Completed Full Resp Panel w/COVID ([facility]) Routine Lab 01/23/24 02:09 Received HIV (1&2) Antibody Rapid Stat Lab 01/23/24 00:30 Received Hep C Ab with Reflex to RNA Stat Lab 01/23/24 00:30 Received NT Pro Brain Natriuretic Pep. Stat Lab 01/23/24 01:13 Completed Prothrombin Time INR Stat Lab 01/23/24 01:13 Completed Troponin I Q3H Lab 01/23/24 03:45 Ordered Troponin I Q3H Lab 01/23/24 06:45 Ordered Troponin I Stat Lab 01/23/24 00:44 Completed Venous Blood Gas Routine RT 01/23/24 02:08 Completed Venous Blood Gas Stat RT 01/23/24 00:43 Completed MDM Narrative Medical Decision Narrative: In summary, this 63-year-old female presents to the emergency department today with cough, shortness of breath, left-sided chest pain. On initial evaluation patient is hemodynamically stable, afebrile, patient is mildly tachypneic with prolonged expiratory phase, wheezing, diminished breath sounds, mild respiratory distress speaking in shortened sentences but oxygenating in the mid 90s on 6 L nasal cannula. Differential diagnosis includes but is not limited to viral syndrome, pneumonia, COPD exacerbation, hypercarbia, also considered the possibility of ACS, PE, fluid overload, kidney dysfunction, electrolyte abnormality, among others. Based on these concerns, I ordered cardiac workup, D- dimer, chest x-ray. ECG personally interpreted demonstrates normal sinus rhythm, rate 69, normal axis, normal WA and QTc, no STEMI, findings concerning for developing LVH, ECG similar to prior based on my review. Patient received additional DuoNeb as well as IV morphine, Zofran for treatment. Patient is already received IV steroids and breathing treatment as well as ASA from EMS Labs personally reviewed demonstrate VBG concerning for significant acidosis with pH 7.21, patient has significant hypercarbia with pCO2 66.1, significantly elevated compared to when patient was admitted in October. Findings concerning for respiratory acidosis. Patient also does have a mild lactic acidosis with lactic 2.1. Patient was started on BiPAP for respiratory support and to help clear her CO2. CBC with no leukocytosis or anemia, platelets normal, PT/INR slightly elevated but nonactionable, D-dimer 0.93, per years criteria PE is ruled out, CTA PE not indicated at this time. CMP with mild hyperkalemia, potassium 5.6, no EKG changes, patient is receiving beta agonist which will likely cause some intracellular shifting of potassium, since patient will be admitted, this can be managed inpatient. Kidney function slightly decreased with creatinine now 1.9 up from 1.4 in October, initial troponin undetectably low less than 0.01 reassuring against cardiac pathology given patient's duration of symptoms. BNP 155, slightly elevated above normal but improved from prior. XR personally interpreted demonstrates no lobar infiltrate, no pneumothorax, see radiology read for final interpretation. On reassessment, patient is tolerating BiPAP well. Repeat VBG shows significant improvement with pH now normal at 7.34, pCO2 has also normalized at 41.6, lactic normal at 1.5. Patient is being removed from BiPAP and placed back on nasal cannula. She does require admission for management and monitoring of hyperkalemia, kidney dysfunction, as well as continued management of COPD exacerbation. Patient is agreeable to this plan. I discussed this case with the hospitalist including patient's lab changes, we asked the concern for decreased kidney function however patient continues to make urine and has no indication for acute renal intervention at this time, hospitalist accepted the patient for admission. Patient admitted in stable condition.
[2024-01-23 00:53] LABS: VBG Base Excess -2.1 mmol/L (-2.4-2.3); VBG HCO3 25.8 mmol/L (23-30); VBG Oxygen Saturation 69.1 % (50-70); VBG PH 7.21 mmol/L (7.31-7.41); VBG PO2 40.6 mmol/L (28-40); VBG Total CO2 27.8 mmol/L (23-27)
[2024-01-23 00:54] LABS: VBG PCO2 66.1 mmol/L (35-51)
[2024-01-23 00:55] LABS: Lactate Venous 2.1 mmol/L (0.4-2.0)
--- NOTE | 2024-01-23 01:16 | PC.NURSE ---
Ed labs on patient and sent to lab
[2024-01-23] MEDS: MORPHINE 4MG/ML SYRINGE 4 MG IV (01:24)
[2024-01-23] MEDS: ONDANSETRON 4MG/2ML VIAL 4 MG IV ×2 (01:24→10:23)
[2024-01-23 01:26] LABS: Basophils # 0.1 K/mm3 (0-0.2); Basophils % 1.1 % (0.1-2.0); Eosinophils # 1.8 K/mm3 (0.0-0.4); Eosinophils % 21.9 % (0.1-12.0); Hematocrit 44.9 % (37.0-47.0); Hemoglobin 14.6 g/dL (12.2-16.2); Lymphocytes # 2.1 K/mm3 (0.7-4.5); Lymphocytes % 26.5 % (10-50); Mean Corpuscular HGB Conc 32.5 g/dL (31.8-35.4); Mean Corpuscular Hemoglobin 29.9 pg (27.0-31.2); Mean Corpuscular Volume 91.9 fl (81-99); Mean Platelet Volume 8.8 fl (7.4-10.4); Monocytes # 0.4 K/mm3 (0.1-1.0); Neutrophils # 3.7 K/mm3 (1.8-7.8); Neutrophils % 45.6 % (37.0-80.0); Platelet Count 293 K/mm3 (142-424); Red Blood Count 4.89 M/mm3 (4.20-5.40); Red Cell Distribution Width 19.3 % (11.5-17.5); White Blood Count 8.1 K/mm3 (4.8-10.8)
[2024-01-23 01:32] LABS: INR 1.36 (0.9-1.1); Prothrombin Time 14.8 seconds (10.1-12.5)
[2024-01-23] MEDS: IPRATROPIUM/ALBUTEROL 3 ML NEB IH ×5 (01:32→23:59)
[2024-01-23 01:55] LABS: Alanine Aminotransferase 36 U/L (12-78); Albumin Level 4.2 g/dl (3.5-5.0); Albumin/Globulin Ratio 1.3 (1.1-1.8); Alkaline Phosphatase 126 U/L (38-126); Anion Gap 12.6 mEq/L (5-15); Aspartate Amino Transferase 43 U/L (14-36); Bilirubin,Total 0.4 mg/dl (0.2-1.3); Blood Urea Nitrogen 51 mg/dl (7-17); Carbon Dioxide 24 mmol/L (22.0-30.0); Chloride 108 mmol/L (98-107); Creatinine Clearance Estimated 34 mL/min (50-200); Estimated Glomerular Filt Rate 27 ml/min (>60); GFR (African American) 33 ML/MIN (>60); Globulin 3.3 g/dL (1.3-3.2); Glucose 102 mg/dl (74-100); Potassium 5.6 mmoL/L (3.5-5.1); Sodium 139 mmol/L (136-145); Total Protein,Serum 7.5 g/dl (6.3-8.2)
[2024-01-23 01:58] LABS: D-Dimer 0.93 ug/mL (0.0-0.5)
[2024-01-23 02:02] LABS: Troponin I < 0.01 ng/ml (0.00-0.034)
[2024-01-23 02:04] LABS: NT Pro Brain Natriuretic Pep. 155 pg/mL (0-125)
[2024-01-23 02:13] LABS: Lactate Venous 1.5 mmol/L (0.4-2.0); VBG Base Excess -3.8 mmol/L (-2.4-2.3); VBG HCO3 21.9 mmol/L (23-30); VBG Oxygen Saturation 95.4 % (50-70); VBG PCO2 41.6 mmol/L (35-51); VBG PH 7.34 mmol/L (7.31-7.41); VBG PO2 81.2 mmol/L (28-40); VBG Total CO2 23.2 mmol/L (23-27)
[2024-01-23 02:13] LABS: Adenovirus,PCR Not Detected (NotDetected); Bordetella Pertussis Not Detected (NotDetected); Chlamydophila Pneumoniae, PCR Not Detected (NotDetected); Coronavirus 19, PCR Not Detected (NotDetected); Coronavirus 229E Not Detected (NotDetected); Coronavirus NL63 Not Detected (NotDetected); Coronavirus OC43 Not Detected (NotDetected); Coronovirus HKU1,PCR Not Detected (NotDetected); Human Metapneumovirus Not Detected (NotDetected); Influenza A, PCR Not Detected (NotDetected); Influenza AH1, 2009 Not Detected (NotDetected); Influenza AH1, PCR Not Detected (NotDetected); Influenza AH3,PCR Not Detected (NotDetected); Influenza B, PCR Not Detected (NotDetected); Mycoplasma Pneumoniae, PCR Not Detected (NotDetected); Parainfluenza 1, PCR Not Detected (NotDetected); Parainfluenza 2, PCR Not Detected (NotDetected); Parainfluenza 3, PCR Not Detected (NotDetected); Parainfluenza 4, PCR Not Detected (NotDetected); Respiratory Syncytial Virus Not Detected (NotDetected); Rhinovirus/Enterovirus Not Detected (NotDetected)
--- NOTE | 2024-01-23 03:06 | EXP.HP ---
History of Present Illness *Admission Date: 01/23/24 *Reason for visit:: SOB, orthopnea, lower extremity swelling, pleuritic chest pain *History of present illness: 63-year-old with past medical history of COPD on as needed home oxygen, CAD, heart failure reduced ejection fraction, chronic back pain, daily smoker, atrial fibrillation, hypothyroidism, hypertension, hyperlipidemia. Patient presents to hospital with 2 to 3 days of orthopnea, pleuritic chest discomfort, dyspnea, productive greenish cough, nausea, orthopnea, PND. Patient requiring 3 L oxygen in emergency room. States she has produced greenish/yellow sputum for past 2 to 3 days. Describes chest discomfort as it hurts to breathe , 09/17, nonradiating. Patient admits to orthopnea and some lower extremity swelling over past few days but denies PND. Also admits to nausea and dry heaves over past few days. States her left thumb movement has decreased over past few days. 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 Also sees Dr. Meyer for COPD management. Denies known sick contacts, fevers, chills, vomiting, abdominal pain, dysuria, urinary frequency, urinary urgency. Also denies history of MIs or strokes. Patient's COPD exacerbation refractory to DuoNebs given in emergency room. With potassium 5.6, creatinine 1.9, D-dimer 0.93, BNP 155, LA 2.1, WBC 8.1, pH on VBG 7.21. Portable chest x-ray done at time of admission shows no pneumothorax, effusions, or consolidations. [facility] Disclaimer: The information contained in this section may have been updated after the patient was seen, as this information can be updated by other users. Medical History Normal coronary arteries Unstable angina Atypical angina HFrEF (heart failure with reduced ejection fraction) Atrial flutter with rapid ventricular response Elevated liver enzymes Smoking greater than 30 pack years Dyspnea on exertion Pulmonary emphysema Dyspnea Afib Sinus bradycardia Chronic, continuous use of opioids Right rotator cuff tear Hypothyroidism Atrial fibrillation/flutter Pulmonary hypertension Hepatitis C Tobacco dependence (HFpEF) heart failure with preserved ejection fraction Hyperlipidemia Hypertension COPD (chronic obstructive pulmonary disease) Surgical History History of hysterectomy History of surgery on right wrist History of mandibular surgery History of left heart catheterization History of cholecystectomy S/P rotator cuff repair H/O splenectomy History of cardioversion Family History Mother Stroke Father Coronary artery disease Social History (Updated 01/23/24 @ 03:44 by Yoana Araiza RN) Smoking Status: Current some day smoker tobacco type: cigarettes packs per day: 1 years smoked: 40 second hand exposure: Yes alcohol intake: never substance use type: denies use current occupational status: unemployed and disabled Travel in the last 8 weeks: None household members: none housing: house lives independently: Yes marital status: single number of children: 3 current occupation: Disabled caffeine: Yes Other Medical History Have you received the Flu Vaccine for this season: No Have you received the Pneumonia Vaccine: No Review of Systems Review of Systems Review of systems:: pertinent systems reviewed and negative unless documented below Constitutional Constitutional: Reports system reviewed and no additional complaints, except as documented Meds Home Medications and Allergies Home Medications ?Medication ?Instructions ?Recorded ?Confirmed ?Type albuterol sulfate 90 mcg/actuation 1 puff inhalation Q4HP PRN 01/10/21 11/04/23 History aerosol inhaler Shortness Of Breath budesonide-formoterol HFA 160 2 puffs inhalation BID 01/10/21 11/04/23 History mcg-4.5 mcg/actuation aerosol inhaler pantoprazole 40 mg tablet,delayed 40 mg PO DAILY GERD #90 tabs 03/04/21 11/04/23 Rx release citalopram 10 mg tablet 10 mg PO DAILY 03/01/22 11/04/23 History diclofenac sodium 1 % topical gel 1 ea topical QIDP PRN Mild Pain 03/01/22 11/04/23 History (Scale Score 1-4) levothyroxine 50 mcg tablet 50 mcg PO DAILY 03/01/22 11/04/23 History aspirin 81 mg tablet,delayed 81 mg PO DAILY #100 tabs 01/28/23 11/04/23 Rx release atorvastatin 40 mg tablet 40 mg PO HS Cholesterol #30 tabs 01/28/23 11/04/23 Rx famotidine 40 mg tablet 40 mg PO BID acid reflux #60 tabs 01/28/23 11/04/23 Rx diclofenac sodium 75 mg 75 mg PO BID 04/13/23 11/04/23 History tablet,delayed release lidocaine 5 % topical patch 1 patch topical DAILY 04/13/23 11/04/23 History (Lidoderm) empagliflozin 10 mg tablet 10 mg PO DAILY 07/19/23 11/04/23 History (Jardiance) nicotine 14 mg/24 hr daily 1 patch transdermal DAILY #28 ea 07/27/23 11/04/23 Rx transdermal patch rivaroxaban 20 mg tablet (Xarelto) 20 mg PO QPMWITHMEAL 10/23/23 11/04/23 History fluticasone fur. 100 mcg-umeclid 1 inh inhalation DAILY 30 days #60 10/29/23 11/04/23 Rx 62.5 mcg-vilant 25 mcg ea inhalat.powder (Trelegy Ellipta) amiodarone 200 mg tablet 200 mg PO BID 30 days #60 tabs 12/08/23 Rx metoprolol succinate 100 mg 100 mg PO BID 30 days #60 tabs 12/08/23 Rx tablet,extended release 24 hr spironolactone 25 mg tablet 12.5 mg (1/2 x 25 mg) PO DAILY 30 12/08/23 Rx days #30 tabs sulfamethoxazole 800 1 tab PO BID 7 days #30 tabs 12/08/23 Rx mg-trimethoprim 160 mg tablet torsemide 20 mg tablet 20 mg PO DAILY 30 days #30 tabs 12/08/23 Rx New Prescriptions to Start Prescriptions: Allergies Allergy/AdvReac Type Severity Reaction Status Date / Time codeine Allergy Mild Nausea Verified 11/04/23 11:13 penicillin G (PENICILLIN G) Allergy Mild I-RASH/NV Verified 11/04/23 11:13 acetaminophen (ACETAMINOPHEN) AdvReac Mild NOT Verified 11/04/23 11:13 ALLERGIC. NEED TO WATCH DUE TO LIVER Exam Data for Last 24 hours Vital signs and Labs for Last 24 Hours: Temp Pulse Resp BP Pulse Ox O2 Del Method O2 Flow Rate 97.9 F 59 L 20 143/95 H 95 Nasal Cannula 4 01/23/24 02:35 01/23/24 02:35 01/23/24 02:35 01/23/24 02:35 01/23/24 00:31 01/23/24 02:35 01/23/24 02:35 FiO2 28 01/23/24 01:34 Laboratory Results - last 24 hr 01/23/24 00:43: VBG pH 7.21 L, VBG pCO2 66.1 H, VBG pO2 40.6 H, VBG HCO3 25.8, VBG Total CO2 27.8 H, VBG O2 Saturation 69.1, VBG Base Excess -2.1, VBG Lactic Acid 2.1 H 01/23/24 01:13: WBC 8.1, RBC 4.89, Hgb 14.6, Hct 44.9, MCV 91.9, MCH 29.9, MCHC 32.5, RDW 19.3 H, Plt Count 293, MPV 8.8, Neut % (Auto) 45.6, Lymph % (Auto) 26.5, Campbell % (Auto) 5.0, Eos % (Auto) 21.9 H, Baso % (Auto) 1.1, Neut # (Auto) 3.7, Lymph # (Auto) 2.1, Campbell # (Auto) 0.4, Eos # (Auto) 1.8 H, Baso # (Auto) 0.1, PT 14.8 H, INR 1.36 H, D-Dimer 0.93 H, Sodium 139, Potassium 5.6 H, Chloride 108 H, Carbon Dioxide 24, Anion Gap 12.6, BUN 51 H, Creatinine 1.90 H, Estimated Creat Clear 34, Estimated GFR 27 L, Est GFR ( Amer) 33 L, Glucose 102 H, Calcium 9.0, Total Bilirubin 0.4, AST 43 H, ALT 36, Alkaline Phosphatase 126, Troponin I < 0.01, NT-Pro-B Natriuret Pep 155 H, Total Protein 7.5, Albumin 4.2, Globulin 3.3 H, Albumin/Globulin Ratio 1.3 01/23/24 02:08: VBG pH 7.34, VBG pCO2 41.6, VBG pO2 81.2 H, VBG HCO3 21.9 L, VBG Total CO2 23.2, VBG O2 Saturation 95.4 H, VBG Base Excess -3.8 L, VBG Lactic Acid 1.5 I & O for Last 24 hours: Intake & Output 01/20/24 01/21/24 01/22/24 01/23/24 23:59 23:59 23:59 23:59 Weight 69.853 kg Constitutional Constitutional: no acute distress *Routine HEENT Exam Head: Present normocephalic Eye: Present EOMI ENT: Present mucous membranes moist *Routine Neck Exam Neck: Present supple and full ROM *Routine Respiratory Exam Respiratory: Present prolonged expiratory phase, distant breath sounds and diminished air movement; Absent accessory muscle use *Routine Cardiovascular Exam Cardiovascular: Present RRR, Normal S1 and Normal S2 *Routine Abdominal Exam Abdominal: Present soft and normoactive bowel sounds; Absent rebound or guarding *Routine Rectal Exam Rectal:: deferred *Routine Genitalia Exam Genitalia:: deferred *Routine Extremities Exam Extremities: Present normal capillary refill *Routine Skin Exam Skin: Present intact *Routine Neurological Exam Neurological: Present alert and oriented X3 Assessment and Plan *Assessment and plan (1) Hyperkalemia: Status: Acute Category: Medical Code(s): E87.5 - Hyperkalemia (2) JAYJAY (acute kidney injury): Status: Acute Category: Medical Code(s): N17.9 - Acute kidney failure, unspecified (3) Acute and chronic respiratory failure with hypercapnia: Status: Acute Category: Medical Code(s): J96.22 - Acute and chronic respiratory failure with hypercapnia (4) Smoking greater than 30 pack years: Status: Acute Category: Social Hx Code(s): F17.210 - Nicotine dependence, cigarettes, uncomplicated (5) Afib: Status: Acute Category: Medical Code(s): I48.91 - Unspecified atrial fibrillation (6) Acute exacerbation of chronic obstructive pulmonary disease: Status: Acute Category: Medical Code(s): J44.1 - Chronic obstructive pulmonary disease with (acute) exacerbation (7) HFrEF (heart failure with reduced ejection fraction): Status: Acute Category: Medical Code(s): I50.20 - Unspecified systolic (congestive) heart failure (8) Chronic hypoxemic respiratory failure: Status: Chronic Category: Medical Code(s): J96.11 - Chronic respiratory failure with hypoxia (9) Hypertension: Status: Chronic Qualifiers: Hypertension type: primary hypertension Qualified Code(s): I10 - Essential (primary) hypertension Category: Medical Code(s): I10 - Essential (primary) hypertension (10) Hyperlipidemia: Status: Chronic Qualifiers: Hyperlipidemia type: mixed hyperlipidemia Qualified Code(s): E78.2 - Mixed hyperlipidemia Category: Medical Code(s): E78.5 - Hyperlipidemia, unspecified (11) Tobacco dependence: Status: Chronic Category: Medical Code(s): F17.200 - Nicotine dependence, unspecified, uncomplicated Plan 63-year-old with past medical history of COPD on as needed home oxygen, CAD, heart failure reduced ejection fraction, chronic back pain, daily smoker, atrial fibrillation, hypothyroidism, hypertension, hyperlipidemia. Patient presents to hospital with 2 to 3 days of orthopnea, pleuritic chest discomfort, dyspnea, productive greenish cough, nausea, orthopnea, PND. Patient requiring 3 L oxygen in emergency room, with potassium 5.6, creatinine 1.9, D-dimer 0.93, BNP 155, LA 2.1, WBC 8.1, pH on VBG 7.21. Portable chest x-ray done at time of admission shows no pneumothorax, effusions, or consolidations. Problems as listed below: Labs/imaging reviewed at time of admission: ? VBG pH 7.21, pCO2 66.1, pO2 40.6, LA 2.1 ? D-dimer 0.93, NA 139, K5.6, CL 108, CO2 24, BUN 51, CR 1.9 GLU 102 total bili 0.4, AST 43, ALT 36, alk phos 126, troponin <0.01, BNP 155. I will repeat troponins, BMP, CBC, mag in a.m. ?Portable chest x-ray: No dense parenchymal consolidation, pleural effusion, or pneumothorax COPD exacerbation: ? Etiology could be viral or bacterial. Respiratory panel ordered in emergency room. Blood cultures also ordered. I ordered sputum culture at time of admission. DuoNebs 3 mL inhaled Q6 scheduled, albuterol 2.5 mg inhaled Q6 as needed shortness of breath. Solu-Medrol 40 mg IV every 6, oxygen DC keep sats greater than 90%. Consult pulmonary given COPD patient with worsening respiratory function. ? D-dimer elevated at time of admission, but creatinine also elevated. Will consider CTA chest once creatinine normalizes. Believe patient's pleuritic chest pain likely due to infection related COPD exacerbation as opposed to pulmonary embolus. Patient at baseline already on Xarelto 20 mg daily so likelihood of PE is small. JAYJAY secondary to increased insensible losses from COPD exacerbation: ? Patient's creatinine 1.9 versus baseline 1.4. Likely due to prerenal azotemia. Patient received 1 L LR in emergency room. Will cautiously rehydrate patient with NS 75 cc/h x 24 hours. Will watch patient closely for signs of fluid overload. Hypertensive urgency: ? Patient's BP in emergency room 145/107. Hydralazine 10 mg IV every 6 as needed SBP over 160 or DBP over 95. Hold torsemide 20 mg p.o. daily since patient slightly dehydrated. Will also order labetalol 10 mg IV every 6 as needed SBP over 180 or DBP over 100. Atrial fibrillation: Xarelto 20 mg p.o. every afternoon, metoprolol succinate 100 mg p.o. twice daily. Amiodarone 200 mg p.o. twice daily CAD: As above in hypertension and atrial fibrillation sections plus aspirin 81 mg p.o. daily Heart failure reduced ejection fraction: ?As above in atrial fibrillation, hypertension, CAD sections plus Aldactone 12.5 mg p.o. daily, Jardiance 10 mg p.o. daily. Asked patient and she denies diabetes but will check hemoglobin A1c at time of admission. Daily smoker: ? Nicotine patch 21 mg p.o. daily Chronic back pain: As needed tramadol 100 mg p.o. 3 times daily, Tylenol 650 p.o. every 6 as needed pain or fever. Hypothyroidism: Patient admits to taking Synthroid, but unsure of her dosage. Will start Synthroid 50 mcg p.o. daily. GERD: Pepcid 40 mg p.o. daily, Protonix 40 mg p.o. daily Hyperlipidemia: Atorvastatin 40 mg p.o. nightly PPx Xarelto CODE STATUS full FEN: Cardiac diet MDM: Copa: High, patient's acute COPD exacerbation, lactic acidosis JAYJAY, hyperkalemia have systemic symptoms of SOB, weakness, nausea which poses threat to life and bodily function. Data: High, see above I spoke with the emergency room physician and agreed that patient required immediate hospitalization to manage medical illness. Risk: High, patient required IV regular insulin, MIVF, IV sodium bicarb, and the rest of prescription drug management mentioned above. I made decision to admit patient to hospital due to risk of medical decompensation patient discharged from emergency room today. 35 minutes of total care time spent on patient by Dr. Lim 01/23/2024
[2024-01-23] MEDS: LACTATED RINGERS 1000ML 1,000 ML 999 ML IV (04:43)
[2024-01-23] MEDS: DEXTROSE 50% 50ML SYRINGE (CRASH CART) 50 ML IVP (04:44)
[2024-01-23] MEDS: SODIUM BICARB 8.4% 50ML SYRINGE (CRASH CART) 50 MEQ IV (04:44)
[2024-01-23] MEDS: INSULIN HUMAN REGULAR 100 UNITS/ML 10ML VIAL 3 UNIT IV (04:48)
[2024-01-23 04:54] LABS: Reflex Lactic Add Lactic Reflex
[2024-01-23] MEDS: DOXYCYCLINE HYCL 100 MG TABLET PO ×2 (05:07→20:20)
[2024-01-23] MEDS: CEFTRIAXONE SODIUM 1 GM in 0.9 % SODIUM CHLORIDE 50 ML IV ×2 (05:34→20:19)
[2024-01-23 05:35] LABS: Hemoglobin A1C 6.1 % (4.0-6.0)
[2024-01-23] MEDS: METHYLPREDNISOLONE SOD SUCC 40MG VIAL 40 MG IV ×4 (05:35→20:20)
[2024-01-23 05:36] LABS: Anion Gap 12.7 mEq/L (5-15); Blood Urea Nitrogen 50 mg/dl (7-17); Calcium 8.8 mg/dl (8.4-10.2); Carbon Dioxide 25 mmol/L (22.0-30.0); Chloride 105 mmol/L (98-107); Creatinine Clearance Estimated 37 mL/min (50-200); Estimated Glomerular Filt Rate 29 ml/min (>60); GFR (African American) 35 ML/MIN (>60); Glucose 285 mg/dl (74-100); Magnesium 2.3 mg/dl (1.6-2.3); Potassium 5.7 mmoL/L (3.5-5.1); Sodium 137 mmol/L (136-145)
[2024-01-23 05:43] LABS: Troponin I < 0.01 ng/ml (0.00-0.034)
[2024-01-23 05:46] LABS: Procalcitonin 0.065 ng/mL (0.0-2.0)
[2024-01-23] MEDS: OXYCODONE 5MG IMMEDIATE RELEASE TABLET 5 MG PO ×2 (05:47→16:36)
[2024-01-23] MEDS: SODIUM CHLORIDE 3% 15ML NEB 3 ML IH (06:26)
[2024-01-23] MEDS: 0.9 % SODIUM CHLORIDE 1000ML 1,000 ML 75 ML IV (07:02)
[2024-01-23 07:50] LABS: Hematocrit 41.8 % (37.0-47.0); Mean Corpuscular HGB Conc 31.3 g/dL (31.8-35.4); Mean Corpuscular Hemoglobin 28.6 pg (27.0-31.2); Mean Corpuscular Volume 91.3 fl (81-99); Red Blood Count 4.58 M/mm3 (4.20-5.40); White Blood Count 5.6 K/mm3 (4.8-10.8)
[2024-01-23 07:51] LABS: Basophils % 0.7 % (0.1-2.0); Eosinophils % 2.8 % (0.1-12.0); Lymphocytes % 16.9 % (10-50); Mean Platelet Volume 10.8 fl (7.4-10.4); Monocytes % 0.5 % (1.7-9.3); Neutrophils # 4.4 K/mm3 (1.8-7.8); Neutrophils % 78.7 % (37.0-80.0); Platelet Count 324 K/mm3 (142-424); Red Cell Distribution Width 20.6 % (11.5-17.5)
[2024-01-23 07:52] LABS: Eosinophils # 0.2 K/mm3 (0.0-0.4)
[2024-01-23 08:18] LABS: Lactic Acid Follow Up (RFLX 1) 1.4 mmol/L (0.7-2.1)
--- NOTE | 2024-01-23 08:19 | PC.NURSE ---
Pt. was admitted from the ED for COPD excerbation, JAYJAY, Hyperkalemia. Pt. is alert and orientated x 4. Pt. is on O2 4 Lper NC. Pt. c/o left sided upper chest pain. Pt. medicatied with Oxi IR for pain. Pt. VSS, Personal items and call taylor in reach.
[2024-01-23 08:29] LABS: Hemoglobin 13.7 g/dL (12.2-16.2)
[2024-01-23] MEDS: FAMOTIDINE 20MG TABLET 40 MG PO ×2 (09:33→20:20)
[2024-01-23] MEDS: EMPAGLIFLOZIN 10MG TABLET 10 MG PO (09:33)
[2024-01-23] MEDS: PANTOPRAZOLE 40MG TABLET 40 MG PO (09:34)
[2024-01-23] MEDS: ASPIRIN EC 81MG TABLET 81 MG PO (09:34)
[2024-01-23] MEDS: LEVOTHYROXINE 50MCG (0.05MG) TAB 50 MCG PO (09:34)
[2024-01-23] MEDS: LOKELMA 5GM PACKET 10 GM PO (09:34)
[2024-01-23] MEDS: AMIODARONE 200MG TABLET 200 MG PO ×2 (09:34→20:19)
[2024-01-23] MEDS: METOPROLOL SUCCINATE XL 100MG TABLET 100 MG PO ×2 (09:34→20:22)
[2024-01-23 12:54] LABS: HIV Combo NEGATIVE (Negative)
[2024-01-23 14:16] LABS: Chloride 107 mmol/L (98-107); Potassium 5.2 mmoL/L (3.5-5.1); Sodium 138 mmol/L (136-145)
[2024-01-23 14:19] LABS: Anion Gap 10.2 mEq/L (5-15); Blood Urea Nitrogen 43 mg/dl (7-17); Carbon Dioxide 26 mmol/L (22.0-30.0); Creatinine Clearance Estimated 18 mL/min (50-200); Estimated Glomerular Filt Rate 31 ml/min (>60); GFR (African American) 37 ML/MIN (>60)
[2024-01-23 14:20] LABS: Calcium 8.6 mg/dl (8.4-10.2); Glucose 133 mg/dl (74-100)
[2024-01-23] MEDS: FUROSEMIDE 40MG/4ML VIAL 40 MG IV (15:17)
--- NOTE | 2024-01-23 15:50 | PC.NURSE ---
pt started shift on 4L nc. pt was weaned from 4L to 2L nc only when ambulating. pt does not require o2 @ rest and maintains o2 sat above 90% at rest w/o o2. However, when pt ambulates she does become SOB and o2 sat does decrease. pt has c/o some chest/ back pain from coughing. pt has been refusing the ordered oxycodone because it does not help . has been made aware of pt statement. no new orders at this time.
[2024-01-23] MEDS: RIVAROXABAN 10MG TABLET 20 MG PO (16:37)
[2024-01-23] MEDS: KETOROLAC 30MG/ML VIAL 15 MG IV (16:38)
[2024-01-23 18:42] LABS: Chloride 105 mmol/L (98-107); Potassium 5.1 mmoL/L (3.5-5.1); Sodium 138 mmol/L (136-145)
[2024-01-23 18:45] LABS: Anion Gap 11.1 mEq/L (5-15); Blood Urea Nitrogen 49 mg/dl (7-17); Calcium 8.7 mg/dl (8.4-10.2); Carbon Dioxide 27 mmol/L (22.0-30.0); Creatinine Clearance Estimated 17 mL/min (50-200); Estimated Glomerular Filt Rate 29 ml/min (>60); GFR (African American) 35 ML/MIN (>60); Glucose 124 mg/dl (74-100)
[2024-01-23] MEDS: ATORVASTATIN 40MG TABLET 40 MG PO (20:19)
[2024-01-24] VITALS (7 sets, daily range): BP systolic 113–136; BP diastolic 68–91; PULSE 55–84; RESP 16–20; TEMP 36.5–36.8; O2SAT 93–98; BMI 23.8
[2024-01-24] MEDS: OXYCODONE 5MG IMMEDIATE RELEASE TABLET 5 MG PO ×2 (00:22→09:00)
[2024-01-24] MEDS: KETOROLAC 30MG/ML VIAL 15 MG IV (00:25)
--- NOTE | 2024-01-24 00:28 | PC.NURSE ---
Pt requested pain meds. Rn attempted to give pt oxycodone. She insisted on having oxycodone and toradol together. Nurse attempted to encourage pt to alternate between the meds to keep from having to go so long without pain meds. Pt again, insisted on taking both together. Meds administered
--- NOTE | 2024-01-24 02:22 | EXP.EVENT.NO ---
Patient with some abdominal discomfort overnight. States she has not had a bowel movement and affecting her sleep. Will order KUB looking for signs of ileus or obstruction. Most likely dyspepsia related pain, so will order as needed Maalox.
[2024-01-24] MEDS: ALUMINUM/MAGNESIUM/SIMETHICONE 30ML UDC 30 ML PO (02:35)
[2024-01-24] MEDS: METHYLPREDNISOLONE SOD SUCC 40MG VIAL 40 MG IV ×2 (02:35→09:00)
[2024-01-24] MEDS: IPRATROPIUM/ALBUTEROL 3 ML NEB IH ×2 (05:50→11:08)
--- NOTE | 2024-01-24 06:02 | PC.NURSE ---
63 yo fe pt is A/O X 4. She is able to ambulate to BR without difficulty. She is maintaining 02 sats above 90 on RA through the night. VS have been stable for pt. She was medicated early in the shift with oxycodone and toradol at her request and was resting well. In the night nurse was called to her room where pt reported severe abdominal pain, reporting it like labor pains . Pt reports LBM was last night, normal in size, consistency and amount. She denies having issues with gas and is able to pass gas without difficulty. Noted BS present all quads, abdomen soft. Call placed to Dr Lim with order for Maalox and KUB. Administered Maalox and encouraged pt to sit on the toilet and / or to ambulate around the room. The result is that pt had large BM X 3 and stomach discomfort resolved. Call placed to who cancelled KUB
[2024-01-24] MEDS: LEVOTHYROXINE 50MCG (0.05MG) TAB 50 MCG PO (06:52)
[2024-01-24 07:24] LABS: Chloride 103 mmol/L (98-107)
[2024-01-24 07:25] LABS: Potassium 4.8 mmoL/L (3.5-5.1); Sodium 134 mmol/L (136-145)
[2024-01-24 07:28] LABS: Anion Gap 7.8 mEq/L (5-15); Blood Urea Nitrogen 57 mg/dl (7-17); Carbon Dioxide 28 mmol/L (22.0-30.0); Creatinine Clearance Estimated 38 mL/min (50-200); Estimated Glomerular Filt Rate 27 ml/min (>60); GFR (African American) 33 ML/MIN (>60); Glucose 123 mg/dl (74-100); Magnesium 2.6 mg/dl (1.6-2.3)
[2024-01-24 07:30] LABS: Basophils % 0.2 % (0.1-2.0); Eosinophils % 0.1 % (0.1-12.0); Hematocrit 40.8 % (37.0-47.0); Hemoglobin 13.2 g/dL (12.2-16.2); Lymphocytes # 1.2 K/mm3 (0.7-4.5); Lymphocytes % 6.5 % (10-50); Mean Corpuscular HGB Conc 32.3 g/dL (31.8-35.4); Mean Corpuscular Hemoglobin 29.3 pg (27.0-31.2); Mean Corpuscular Volume 90.9 fl (81-99); Mean Platelet Volume 8.9 fl (7.4-10.4); Monocytes # 0.8 K/mm3 (0.1-1.0); Monocytes % 4.2 % (1.7-9.3); Neutrophils # 16.5 K/mm3 (1.8-7.8); Platelet Count 332 K/mm3 (142-424); Red Blood Count 4.49 M/mm3 (4.20-5.40); Red Cell Distribution Width 19.5 % (11.5-17.5); White Blood Count 18.6 K/mm3 (4.8-10.8)
[2024-01-24 07:34] LABS: MANUAL DIFFERENTIAL MANUAL DIFFERENTIAL (MANUAL DIFF)
[2024-01-24 08:50] LABS: Anisocytosis 1+; Hypochromasia 1+; Lymphocytes % 3 % (10-50); Neutrophils % 97 % (42-76); Platelet Estimate Normal; Total Cells Counted 100
[2024-01-24] MEDS: DOXYCYCLINE HYCL 100 MG TABLET PO (09:00)
[2024-01-24] MEDS: ASPIRIN EC 81MG TABLET 81 MG PO (09:01)
[2024-01-24] MEDS: AMIODARONE 200MG TABLET 200 MG PO (09:01)
[2024-01-24] MEDS: PANTOPRAZOLE 40MG TABLET 40 MG PO (09:01)
[2024-01-24] MEDS: EMPAGLIFLOZIN 10MG TABLET 10 MG PO (09:01)
[2024-01-24] MEDS: FAMOTIDINE 20MG TABLET 40 MG PO (09:01)
[2024-01-24] MEDS: METOPROLOL SUCCINATE XL 100MG TABLET 100 MG PO (09:01)
--- NOTE | 2024-01-24 09:39 | P.CONS_ITS ---
History of Present Illness History of present illness: Ms. Buchnaan is a 63-year-old female COPD, chronic hypoxic respiratory failure, heart failure reduced EF, CAD, atrial flutter presented to the ER with worsening respiratory distress chest discomfort dyspnea worsening cough and productive phlegm with increasing oxygen appointment and pulmonary was called for further evaluation and management. Admits worsening respiratory status cough and productive phlegm 5 to 7 days prior to admission [facility] Disclaimer: The information contained in this section may have been updated after the patient was seen, as this information can be updated by other users. Medical History Normal coronary arteries Unstable angina Atypical angina HFrEF (heart failure with reduced ejection fraction) Atrial flutter with rapid ventricular response Elevated liver enzymes Smoking greater than 30 pack years Dyspnea on exertion Pulmonary emphysema Dyspnea Afib Sinus bradycardia Chronic, continuous use of opioids Right rotator cuff tear Hypothyroidism Atrial fibrillation/flutter Pulmonary hypertension Hepatitis C Tobacco dependence (HFpEF) heart failure with preserved ejection fraction Hyperlipidemia Hypertension COPD (chronic obstructive pulmonary disease) Surgical History History of hysterectomy History of surgery on right wrist History of mandibular surgery History of left heart catheterization History of cholecystectomy S/P rotator cuff repair H/O splenectomy History of cardioversion Family History Mother Stroke Father Coronary artery disease Social History (Updated 01/23/24 @ 03:44 by Yoana Araiza RN) Smoking Status: Current some day smoker tobacco type: cigarettes packs per day: 1 years smoked: 40 second hand exposure: Yes alcohol intake: never substance use type: denies use current occupational status: unemployed and disabled Travel in the last 8 weeks: None household members: none housing: house lives independently: Yes marital status: single number of children: 3 current occupation: Disabled caffeine: Yes Have you lived/traveled outside [place] in past 30 days?: No Contact w/someone who lives/traveled outside [place] past 30 days?: No Exposure to someone with infectious disease in past 14 days?: No Do you have a fever (greater than 100.4 F or 38 C)?: No Have you tested positive for COVID-19: No Exposed to someone with COVID-19 in past 14 days?: No Do you have a sore throat?: No Do you have a cough?: No Do you have any weakness?: No Do you have any diarrhea?: No Are you experiencing any unusual bleeding?: No Do you have any muscle aches/pain?: No Do you have any abdominal pain?: No Are you experiencing loss of taste or smell?: No Review of Systems Constitutional Constitutional: Reports fatigue and Reports weakness Eyes Eyes: Denies eye discharge, Denies dry eyes, Denies irritation and Denies itchy eyes ENT Ears, Nose, Mouth, and Throat: Denies epistaxis, Denies facial pain, Denies lip swelling and Denies throat swelling *Cardiovascular Cardiovascular: Reports dyspnea and Reports dyspnea on exertion *Respiratory Respiratory: Reports change in phlegm color, Reports chest congestion, Reports cough, Reports dyspnea, Reports dyspnea on exertion, Reports excessive phlegm production and Reports wheezing *Gastrointestinal Gastrointestinal: Denies abdominal pain, Denies belching and Denies cramping *Musculoskeletal Musculoskeletal: Reports back pain, Reports myalgias and Reports other (No small joint swelling or Pain) *Neurologic Neurologic: Reports system reviewed and no additional complaints, except as documented and Reports weakness Psychiatric Psychiatric: Denies homicidal ideation and Denies suicidal ideation Endocrine Endocrine: Reports fatigue and Denies heat intolerance Hematologic/Lymphatic Hematologic/Lymphatic: Denies easy bleeding and Denies lymphadenopathy Allergic/Immunologic Allergic/Immunologic: Denies itchy eyes, Denies lip swelling, Denies throat swelling and Reports wheezing Pulmonology Exam Inpatient Vital signs and Labs for Last 24 Hours: Temp Pulse Resp BP Pulse Ox O2 Del Method O2 Flow Rate 98.0 F 58 L 20 116/68 94 L Room Air 1 01/24/24 08:00 01/24/24 08:00 01/24/24 08:00 01/24/24 08:00 01/24/24 08:00 01/24/24 09:00 01/24/24 05:50 FiO2 28 01/23/24 18:28 Laboratory Results - last 24 hr 01/23/24 00:30: HIV Ag/Ab Combo Qual Negative 01/23/24 14:00: Sodium 138, Potassium 5.2 H, Chloride 107, Carbon Dioxide 26, Anion Gap 10.2, BUN 43 H, Creatinine 1.70 H, Estimated Creat Clear 18, Estimated GFR 31 L, Est GFR ( Amer) 37 L, Glucose 133 H D, Calcium 8.6 01/23/24 18:21: Sodium 138, Potassium 5.1, Chloride 105, Carbon Dioxide 27, Anion Gap 11.1, BUN 49 H, Creatinine 1.80 H, Estimated Creat Clear 17, Estimated GFR 29 L, Est GFR ( Amer) 35 L, Glucose 124 H, Calcium 8.7 01/24/24 06:32: WBC 18.6 H D, RBC 4.49, Hgb 13.2, Hct 40.8, MCV 90.9, MCH 29.3, MCHC 32.3, RDW 19.5 H, Plt Count 332, MPV 8.9, Neut % (Auto) 89.0 H, Lymph % (Auto) 6.5 L, [place] % (Auto) 4.2, Eos % (Auto) 0.1, Baso % (Auto) 0.2, Neut # (Auto) 16.5 H, Lymph # (Auto) 1.2, [place] # (Auto) 0.8, Eos # (Auto) 0.0, Baso # (Auto) 0.0, Total Counted 100, Neutrophils % (Manual) 97 H, Lymphocytes % (Manual) 3 L, Platelet Estimate Normal, Hypochromasia 1+, Anisocytosis 1+, S odium 134 L, Potassium 4.8, Chloride 103, Carbon Dioxide 28, Anion Gap 7.8, BUN 57 H, Creatinine 1.90 H, Estimated Creat Clear 38, Estimated GFR 27 L, Est GFR ( Amer) 33 L, Glucose 123 H, Calcium 9.0, Magnesium 2.6 H D I & O for Labs for Last 24 Hours: Intake & Output 01/21/24 01/22/24 01/23/24 01/24/24 23:59 23:59 23:59 23:59 Intake Total 1320 / 1320 360 / 360 Output Total 0 / 0 0 / 0 Balance 1320 / 1320 360 / 360 Weight 71 lb 4.912 oz 170 lb 1.6 oz Microbiology Reports for the Last 24 Hours: Microbiology 01/23/24 06:50 Sputum - Expectorated Sputum Gram Stain - Final Constitutional: Present mild distress Head: Present normocephalic and atraumatic ENT: Present normal exam, normal oropharynx and mucous membranes moist Neck: Present normal inspection and full ROM Respiratory: Present respiratory distress and able to speak in complete sentences; Absent prolonged expiratory phase or wheezes Cardiac: Present S1/S2, Tachycardia and radial pulses present GI: Present soft and distention; Absent tenderness or guarding Rectal (female): Present deferred (female): Present deferred Skin: Present intact; Absent cyanosis or jaundice Neuro: Present alert, awake and oriented x 3 Extremities: Present normal inspection; Absent clubbing or cyanosis Psychiatric: Present normal affect and cooperative Meds Home Medications and Allergies Home Medications ?Medication ?Instructions ?Recorded ?Confirmed ?Type pantoprazole 40 mg tablet,delayed 40 mg PO DAILY GERD #90 tabs 03/04/21 01/23/24 Rx release citalopram 10 mg tablet 10 mg PO DAILY 03/01/22 01/23/24 History diclofenac sodium 1 % topical gel 1 ea topical QIDP PRN Mild Pain 03/01/22 01/23/24 History (Scale Score 1-4) levothyroxine 50 mcg tablet 50 mcg PO DAILY 03/01/22 01/23/24 History aspirin 81 mg tablet,delayed 81 mg PO DAILY #100 tabs 01/28/23 01/23/24 Rx release atorvastatin 40 mg tablet 40 mg PO HS Cholesterol #30 tabs 01/28/23 01/23/24 Rx famotidine 40 mg tablet 40 mg PO BID acid reflux #60 tabs 01/28/23 01/23/24 Rx diclofenac sodium 75 mg 75 mg PO BID 04/13/23 01/23/24 History tablet,delayed release lidocaine 5 % topical patch 1 patch topical DAILY 04/13/23 01/23/24 History (Lidoderm) empagliflozin 10 mg tablet 10 mg PO DAILY 07/19/23 01/23/24 History (Jardiance) rivaroxaban 20 mg tablet (Xarelto) 20 mg PO QPMWITHMEAL 10/23/23 01/23/24 History fluticasone fur. 100 mcg-umeclid 1 inh inhalation DAILY 30 days #60 10/29/23 01/23/24 Rx 62.5 mcg-vilant 25 mcg ea inhalat.powder (Trelegy Ellipta) amiodarone 200 mg tablet 200 mg PO BID 30 days #60 tabs 12/08/23 01/23/24 Rx metoprolol succinate 100 mg 100 mg PO BID 30 days #60 tabs 12/08/23 01/23/24 Rx tablet,extended release 24 hr spironolactone 25 mg tablet 12.5 mg (1/2 x 25 mg) PO DAILY 30 12/08/23 01/23/24 Rx days #30 tabs torsemide 20 mg tablet 20 mg PO DAILY 30 days #30 tabs 12/08/23 01/23/24 Rx gabapentin 600 mg tablet 600 mg PO BID 01/23/24 01/23/24 History doxycycline hyclate 100 mg tablet 100 mg PO Q12H 3 days #6 tabs 01/24/24 Rx prednisone 20 mg tablet 40 mg (2 x 20 mg) PO DAILY 3 days 01/24/24 Rx #6 tabs New Prescriptions to Start Prescriptions: doxycycline hyclate Salazar Arreola prednisone Salazar Arreola Allergies Allergy/AdvReac Type Severity Reaction Status Date / Time codeine Allergy Mild Nausea Verified 11/04/23 11:13 penicillin G (PENICILLIN G) Allergy Mild I-RASH/NV Verified 11/04/23 11:13 acetaminophen (ACETAMINOPHEN) AdvReac Mild NOT Verified 11/04/23 11:13 ALLERGIC. NEED TO WATCH DUE TO LIVER Results Laboratory Findings 01/24/24 06:32 01/24/24 06:32 PT/INR, D-dimer PT 14.8 seconds (10.1-12.5) H 01/23/24 01:13 INR 1.36 (0.9-1.1) H 01/23/24 01:13 D-Dimer 0.93 ug/mL (0.0-0.5) H 01/23/24 01:13 Abnormal lab findings: Abnormal Labs 01/23/24 01/23/24 01/23/24 00:43 01:13 02:08 WBC MCHC RDW 19.3 H MPV Neut % (Auto) Lymph % (Auto) [place] % (Auto) Eos % (Auto) 21.9 H Neut # (Auto) [place] # (Auto) Eos # (Auto) 1.8 H Neutrophils % (Manual) Lymphocytes % (Manual) PT 14.8 H INR 1.36 H D-Dimer 0.93 H VBG pH 7.21 L VBG pCO2 66.1 H VBG pO2 40.6 H 81.2 H VBG HCO3 21.9 L VBG Total CO2 27.8 H VBG O2 Saturation 95.4 H VBG Base Excess -3.8 L VBG Lactic Acid 2.1 H Sodium Potassium 5.6 H Chloride 108 H BUN 51 H Creatinine 1.90 H Estimated GFR 27 L Est GFR ( Amer) 33 L Glucose 102 H Hemoglobin A1c Magnesium AST 43 H NT-Pro-B Natriuret Pep 155 H Globulin 3.3 H 01/23/24 01/23/24 01/23/24 05:10 14:00 18:21 WBC MCHC 31.3 L RDW 20.6 H MPV 10.8 H Neut % (Auto) Lymph % (Auto) [place] % (Auto) 0.5 L Eos % (Auto) Neut # (Auto) [place] # (Auto) 0.0 L Eos # (Auto) Neutrophils % (Manual) Lymphocytes % (Manual) PT INR D-Dimer VBG pH VBG pCO2 VBG pO2 VBG HCO3 VBG Total CO2 VBG O2 Saturation VBG Base Excess VBG Lactic Acid Sodium Potassium 5.7 H 5.2 H Chloride BUN 50 H 43 H 49 H Creatinine 1.80 H 1.70 H 1.80 H Estimated GFR 29 L 31 L 29 L Est GFR ( Amer) 35 L 37 L 35 L Glucose 285 H D 133 H D 124 H Hemoglobin A1c 6.1 H Magnesium AST NT-Pro-B Natriuret Pep Globulin 01/24/24 06:32 WBC 18.6 H D MCHC RDW 19.5 H MPV Neut % (Auto) 89.0 H Lymph % (Auto) 6.5 L [place] % (Auto) Eos % (Auto) Neut # (Auto) 16.5 H [place] # (Auto) Eos # (Auto) Neutrophils % (Manual) 97 H Lymphocytes % (Manual) 3 L PT INR D-Dimer VBG pH VBG pCO2 VBG pO2 VBG HCO3 VBG Total CO2 VBG O2 Saturation VBG Base Excess VBG Lactic Acid Sodium 134 L Potassium Chloride BUN 57 H Creatinine 1.90 H Estimated GFR 27 L Est GFR ( Amer) 33 L Glucose 123 H Hemoglobin A1c Magnesium 2.6 H D AST NT-Pro-B Natriuret Pep Globulin Assessment and Plan *Assessment and plan (1) Acute and chronic respiratory failure with hypercapnia: Status: Acute Category: Medical Code(s): J96.22 - Acute and chronic respiratory failure with hypercapnia (2) COPD exacerbation: Status: Acute Category: Medical Code(s): J44.1 - Chronic obstructive pulmonary disease with (acute) exacerbation Plan Ms. Buchanan is a 63-year-old female COPD, chronic hypoxic respiratory failure, heart failure reduced EF, CAD, atrial flutter presented to the ER with worsening respiratory distress chest discomfort dyspnea worsening cough and productive phlegm with increasing oxygen appointment and pulmonary was called for further evaluation and management. Admits worsening respiratory status cough and productive phlegm 5 to 7 days prior to admission Labs on admission, neutrophilic predominant leukocytosis. Venous blood gas upon admission hypercarbic respiratory failure with pH of 7.21 and pCO2 of 56.1 JAYJAY on CKD and hyponatremia noted. Complains of respiratory viral PCR negative. Chest x-ray upon admission no dense consolidative/airspace changes noted. No effusions appreciated. Patient admission was initiated on treatment for COPD exacerbation and pneumonia with ceftriaxone doxycycline, methylprednisolone and nebulization therapies. Patient did admit significant improvement in her respiratory status. On room air. No significant wheezing appreciated. Plan: Wean antibiotics to doxycycline to complete a total of 5-day course Wean steroids to prednisone to complete a total of 5-day course Continue the noted hypercarbia likely from COPD exacerbation. Will follow patient as an outpatient basis repeat ABG to determine the need for long-term noninvasive ventilatory therapy. # Thank you for involving pulmonary in this patient care. Will continue to follow.
--- NOTE | 2024-01-24 10:33 | EXP.DC.SUM ---
General Admission date:: 01/23/24 Discharge date: 01/24/24 HPI HPI HPI: 63-year-old with past medical history of COPD on as needed home oxygen, CAD, heart failure reduced ejection fraction, chronic back pain, daily smoker, atrial fibrillation, hypothyroidism, hypertension, hyperlipidemia. Patient presents to hospital with 2 to 3 days of orthopnea, pleuritic chest discomfort, dyspnea, productive greenish cough, nausea, orthopnea, PND. Patient requiring 3 L oxygen in emergency room. States she has produced greenish/yellow sputum for past 2 to 3 days. Describes chest discomfort as it hurts to breathe , 09/17, nonradiating. Patient admits to orthopnea and some lower extremity swelling over past few days but denies PND. Also admits to nausea and dry heaves over past few days. States her left thumb movement has decreased over past few days. 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 Also sees Dr. Meyer for COPD management. Denies known sick contacts, fevers, chills, vomiting, abdominal pain, dysuria, urinary frequency, urinary urgency. Also denies history of MIs or strokes. Patient's COPD exacerbation refractory to DuoNebs given in emergency room. With potassium 5.6, creatinine 1.9, D-dimer 0.93, BNP 155, LA 2.1, WBC 8.1, pH on VBG 7.21. Portable chest x-ray done at time of admission shows no pneumothorax, effusions, or consolidations. Hospital Course Hospital Course Hospital Course: 63-year-old with past medical history of COPD on as needed home oxygen, CAD, heart failure reduced ejection fraction, chronic back pain, daily smoker, atrial fibrillation, hypothyroidism, hypertension, hyperlipidemia. Patient presents to hospital with 2 to 3 days of orthopnea, pleuritic chest discomfort, dyspnea, productive greenish cough, nausea, orthopnea, PND. Patient requiring 3 L oxygen in emergency room, with potassium 5.6, creatinine 1.9, D-dimer 0.93, BNP 155, LA 2.1, WBC 8.1, pH on VBG 7.21. Portable chest x-ray done at time of admission shows no pneumothorax, effusions, or consolidations. Responded well to antibiotics and diuresis. Oxygen weaned to room air by morning of discharge. Cardiology and pulmonology evaluated, stable to discharge home with further management as an outpatient. Problems addressed as follows: COPD exacerbation: ? Etiology could be viral or bacterial. Respiratory panel ordered in emergency room found to be negative. Blood cultures ordered. Started on antibiotics and steroids. Oxygen gradually weaned to room air by morning of discharge. Tolerating nebulizer, antibiotics, steroids. Will continue doxycycline to complete 5 days of antibiotics total along with prednisone 40 mg daily to complete 5 days of steroids. Provided Anoro inhaler prior to discharge. Given her improvement, stable discharge home with follow-up with pulmonology as an outpatient. - D-dimer elevated at time of admission, but creatinine also elevated. Will consider CTA chest once creatinine normalizes. Believe patient's pleuritic chest pain likely due to infection related COPD exacerbation as opposed to pulmonary embolus. Patient at baseline already on Xarelto 20 mg daily so likelihood of PE is small. JAYJAY secondary to increased insensible losses from COPD exacerbation: ? Patient's creatinine 1.9 versus baseline 1.4. Likely due to prerenal azotemia. Patient received 1 L LR in emergency room. Discontinued fluids due to component of CHF. Actually doing better by morning of discharge. Administered single dose of diuretic. Kidney function remained stable. Hypertensive: Continue home regimen at discharge Atrial fibrillation: Xarelto 20 mg p.o. every afternoon, metoprolol succinate 100 mg p.o. twice daily. Amiodarone 200 mg p.o. twice daily CAD: As above in hypertension and atrial fibrillation sections plus aspirin 81 mg p.o. daily Heart failure reduced ejection fraction: ?As above in atrial fibrillation, hypertension, CAD sections plus Aldactone 12.5 mg p.o. daily, Jardiance 10 mg p.o. daily. Daily smoker: Complicates her chronic conditions. Likely an underlying factor in her exacerbations. Nicotine patch during admission. No desire to quit at this time. Chronic back pain: As needed tramadol 100 mg p.o. 3 times daily, Tylenol 650 p.o. every 6 as needed pain or fever. Continue home regimen at discharge Hypothyroidism: Patient admits to taking Synthroid, but unsure of her dosage. Continue Synthroid 50 mcg daily. GERD: Pepcid 40 mg p.o. daily, Protonix 40 mg p.o. daily Hyperlipidemia: Atorvastatin 40 mg p.o. nightly Exam Data for Last 24 hours Vital signs and Labs for Last 24 Hours: Temp Pulse Resp BP Pulse Ox O2 Del Method O2 Flow Rate 98.0 F 58 L 20 116/68 94 L Room Air 1 01/24/24 08:00 01/24/24 08:00 01/24/24 08:00 01/24/24 08:00 01/24/24 08:00 01/24/24 09:00 01/24/24 05:50 FiO2 28 01/23/24 18:28 Laboratory Results - last 24 hr 01/23/24 00:30: HIV Ag/Ab Combo Qual Negative 01/23/24 14:00: Sodium 138, Potassium 5.2 H, Chloride 107, Carbon Dioxide 26, Anion Gap 10.2, BUN 43 H, Creatinine 1.70 H, Estimated Creat Clear 18, Estimated GFR 31 L, Est GFR ( Amer) 37 L, Glucose 133 H D, Calcium 8.6 01/23/24 18:21: Sodium 138, Potassium 5.1, Chloride 105, Carbon Dioxide 27, Anion Gap 11.1, BUN 49 H, Creatinine 1.80 H, Estimated Creat Clear 17, Estimated GFR 29 L, Est GFR ( Amer) 35 L, Glucose 124 H, Calcium 8.7 01/24/24 06:32: WBC 18.6 H D, RBC 4.49, Hgb 13.2, Hct 40.8, MCV 90.9, MCH 29.3, MCHC 32.3, RDW 19.5 H, Plt Count 332, MPV 8.9, Neut % (Auto) 89.0 H, Lymph % (Auto) 6.5 L, [place] % (Auto) 4.2, Eos % (Auto) 0.1, Baso % (Auto) 0.2, Neut # (Auto) 16.5 H, Lymph # (Auto) 1.2, [place] # (Auto) 0.8, Eos # (Auto) 0.0, Baso # (Auto) 0.0, Total Counted 100, Neutrophils % (Manual) 97 H, Lymphocytes % (Manual) 3 L, Platelet Estimate Normal, Hypochromasia 1+, Anisocytosis 1+, Sodium 134 L, Potassium 4.8, Chloride 103, Carbon Dioxide 28, Anion Gap 7.8, BUN 57 H, Creatinine 1.90 H, Estimated Creat Clear 38, Estimated GFR 27 L, Est GFR ( Amer) 33 L, Glucose 123 H, Calcium 9.0, Magnesium 2.6 H D I & O for Last 24 hours: Intake & Output 01/21/24 01/22/24 01/23/24 01/24/24 23:59 23:59 23:59 23:59 Intake Total 1320 / 1320 360 / 360 Output Total 0 / 0 0 / 0 Balance 1320 / 1320 360 / 360 Weight 32.344 kg 77.156 kg Microbiology Reports for the Last 24 Hours: Microbiology 01/23/24 06:50 Sputum - Expectorated Sputum Gram Stain - Final Constitutional Constitutional: no acute distress, average body habitus and chronically ill appearing *Routine HEENT Exam Head: Present normocephalic and atraumatic ENT: Present mucous membranes moist *Routine Neck Exam Neck: Present supple, full ROM and normal carotid upstroke; Absent JVD, carotid bruit or lymphadenopathy *Routine Respiratory Exam Respiratory: Present prolonged expiratory phase and wheezes; Absent rhonchi or crackles Comments: Mild wheezing bilateral lung ignacio. *Routine Cardiovascular Exam Cardiovascular: Present RRR, Normal S1 and Normal S2; Absent murmur or gallop *Routine Abdominal Exam Abdominal: Present soft and normoactive bowel sounds; Absent tenderness, distended or organomegaly *Routine Rectal Exam Patient deferred: visual exam *Routine Exam Patient deferred: external exam *Routine Extremities Exam Extremities: Present full ROM, pulses intact and normal capillary refill; Absent cyanosis, clubbing or edema *Routine Skin Exam Skin: Present intact and warm; Absent erythema *Routine Neurological Exam Neurological: Present alert, oriented X3, CN II-XII intact and moving all extremities; Absent sensory deficit or motor deficit Routine Psychiatric Exam Psychiatric: Present normal affect Results Data Completed and Pending Labs on day of discharge: Labs from last 24 hours 01/24/24 01/23/24 01/23/24 06:32 18:21 14:00 WBC 18.6 H D RBC 4.49 Hgb 13.2 Hct 40.8 MCV 90.9 MCH 29.3 MCHC 32.3 RDW 19.5 H Plt Count 332 MPV 8.9 Neut % (Auto) 89.0 H Lymph % (Auto) 6.5 L [place] % (Auto) 4.2 Eos % (Auto) 0.1 Baso % (Auto) 0.2 Neut # (Auto) 16.5 H Lymph # (Auto) 1.2 [place] # (Auto) 0.8 Eos # (Auto) 0.0 Baso # (Auto) 0.0 Total Counted 100 Neutrophils % (Manual) 97 H Lymphocytes % (Manual) 3 L Platelet Estimate Normal Hypochromasia 1+ Anisocytosis 1+ Sodium 134 L 138 138 Potassium 4.8 5.1 5.2 H Chloride 103 105 107 Carbon Dioxide 28 27 26 Anion Gap 7.8 11.1 10.2 BUN 57 H 49 H 43 H Creatinine 1.90 H 1.80 H 1.70 H Estimated Creat Clear 38 17 18 Estimated GFR 27 L 29 L 31 L Est GFR ( Amer) 33 L 35 L 37 L Glucose 123 H 124 H 133 H D Calcium 9.0 8.7 8.6 Magnesium 2.6 H D HIV Ag/Ab Combo Qual 01/23/24 00:30 WBC RBC Hgb Hct MCV MCH MCHC RDW Plt Count MPV Neut % (Auto) Lymph % (Auto) [place] % (Auto) Eos % (Auto) Baso % (Auto) Neut # (Auto) Lymph # (Auto) [place] # (Auto) Eos # (Auto) Baso # (Auto) Total Counted Neutrophils % (Manual) Lymphocytes % (Manual) Platelet Estimate Hypochromasia Anisocytosis Sodium Potassium Chloride Carbon Dioxide Anion Gap BUN Creatinine Estimated Creat Clear Estimated GFR Est GFR ( Amer) Glucose Calcium Magnesium HIV Ag/Ab Combo Qual Negative DS: Diagnosis Discharge Diagnosis (1) Hyperkalemia: Status: Acute Code(s): E87.5 - Hyperkalemia (2) JAYJAY (acute kidney injury): Status: Acute Code(s): N17.9 - Acute kidney failure, unspecified (3) Acute and chronic respiratory failure with hypercapnia: Status: Acute Code(s): J96.22 - Acute and chronic respiratory failure with hypercapnia (4) Smoking greater than 30 pack years: Status: Acute Code(s): F17.210 - Nicotine dependence, cigarettes, uncomplicated (5) Afib: Status: Acute Code(s): I48.91 - Unspecified atrial fibrillation (6) Acute exacerbation of chronic obstructive pulmonary disease: Status: Acute Code(s): J44.1 - Chronic obstructive pulmonary disease with (acute) exacerbation (7) HFrEF (heart failure with reduced ejection fraction): Status: Acute Code(s): I50.20 - Unspecified systolic (congestive) heart failure (8) Chronic hypoxemic respiratory failure: Status: Chronic Code(s): J96.11 - Chronic respiratory failure with hypoxia (9) Hypertension: Status: Chronic Code(s): I10 - Essential (primary) hypertension Qualifiers: Hypertension type: primary hypertension Qualified Code(s): I10 - Essential (primary) hypertension (10) Hyperlipidemia: Status: Chronic Code(s): E78.5 - Hyperlipidemia, unspecified Qualifiers: Hyperlipidemia type: mixed hyperlipidemia Qualified Code(s): E78.2 - Mixed hyperlipidemia (11) Tobacco dependence: Status: Chronic Code(s): F17.200 - Nicotine dependence, unspecified, uncomplicated Meds Home Medications and Allergies Home Medications ?Medication ?Instructions ?Recorded ?Confirmed ?Type pantoprazole 40 mg tablet,delayed 40 mg PO DAILY GERD #90 tabs 03/04/21 01/23/24 Rx release citalopram 10 mg tablet 10 mg PO DAILY 03/01/22 01/23/24 History diclofenac sodium 1 % topical gel 1 ea topical QIDP PRN Mild Pain 03/01/22 01/23/24 History (Scale Score 1-4) levothyroxine 50 mcg tablet 50 mcg PO DAILY 03/01/22 01/23/24 History aspirin 81 mg tablet,delayed 81 mg PO DAILY #100 tabs 01/28/23 01/23/24 Rx release atorvastatin 40 mg tablet 40 mg PO HS Cholesterol #30 tabs 01/28/23 01/23/24 Rx famotidine 40 mg tablet 40 mg PO BID acid reflux #60 tabs 01/28/23 01/23/24 Rx diclofenac sodium 75 mg 75 mg PO BID 04/13/23 01/23/24 History tablet,delayed release lidocaine 5 % topical patch 1 patch topical DAILY 04/13/23 01/23/24 History (Lidoderm) empagliflozin 10 mg tablet 10 mg PO DAILY 07/19/23 01/23/24 History (Jardiance) rivaroxaban 20 mg tablet (Xarelto) 20 mg PO QPMWITHMEAL 10/23/23 01/23/24 History fluticasone fur. 100 mcg-umeclid 1 inh inhalation DAILY 30 days #60 10/29/23 01/23/24 Rx 62.5 mcg-vilant 25 mcg ea inhalat.powder (Trelegy Ellipta) amiodarone 200 mg tablet 200 mg PO BID 30 days #60 tabs 12/08/23 01/23/24 Rx metoprolol succinate 100 mg 100 mg PO BID 30 days #60 tabs 12/08/23 01/23/24 Rx tablet,extended release 24 hr spironolactone 25 mg tablet 12.5 mg (1/2 x 25 mg) PO DAILY 30 12/08/23 01/23/24 Rx days #30 tabs torsemide 20 mg tablet 20 mg PO DAILY 30 days #30 tabs 12/08/23 01/23/24 Rx gabapentin 600 mg tablet 600 mg PO BID 01/23/24 01/23/24 History doxycycline hyclate 100 mg tablet 100 mg PO Q12H 3 days #6 tabs 01/24/24 Rx prednisone 20 mg tablet 40 mg (2 x 20 mg) PO DAILY 3 days 01/24/24 Rx #6 tabs New Prescriptions to Start Prescriptions: doxycycline hyclate Salazar Arreola prednisone Salazar Arreola Allergies Allergy/AdvReac Type Severity Reaction Status Date / Time codeine Allergy Mild Nausea Verified 11/04/23 11:13 penicillin G (PENICILLIN G) Allergy Mild I-RASH/NV Verified 11/04/23 11:13 acetaminophen (ACETAMINOPHEN) AdvReac Mild NOT Verified 11/04/23 11:13 ALLERGIC. NEED TO WATCH DUE TO LIVER Discharge Plan Disposition Patient Disposition: Home, Self-Care Condition: Fair Follow up Plan Follow up with: Solange Mills APRN [Primary Care Provider] - 02/01/24 1:00 pm Eden Darling MD [Physician] - Enter time for follow up Irvin Ruano MD [Staff Physician] - Enter time for follow up Prescriptions/Medication Reconciliation: New prednisone 20 mg Tablet 40 mg PO DAILY 3 Days Qty: 6 0RF doxycycline hyclate 100 mg Tablet 100 mg PO Q12H 3 Days Qty: 6 0RF Continued pantoprazole 40 mg tablet,delayed release (DR/EC) 40 mg PO DAILY Qty: 90 3RF diclofenac sodium 75 mg tablet,delayed release (DR/EC) 75 mg PO BID lidocaine [Lidoderm] 5 % adhesive patch,medicated 1 patch topical DAILY aspirin 81 mg tablet,delayed release (DR/EC) 81 mg PO DAILY Qty: 100 3RF atorvastatin 40 mg tablet 40 mg PO HS Qty: 30 3RF famotidine 40 mg tablet 40 mg PO BID Qty: 60 5RF spironolactone 25 mg tablet 12.5 mg PO DAILY 30 Days Qty: 30 4RF torsemide 20 mg tablet 20 mg PO DAILY 30 Days Qty: 30 4RF amiodarone 200 mg tablet 200 mg PO BID 30 Days Qty: 60 4RF metoprolol succinate 100 mg tablet extended release 24 hr 100 mg PO BID 30 Days Qty: 60 4RF Xarelto 20 mg tablet 20 mg PO QPMWITHMEAL Rx Instructions: must administer with evening meal Trelegy Ellipta 100-62.5-25 mcg Blister With Device 1 inh inhalation DAILY 30 Days Qty: 60 0RF gabapentin 600 mg tablet 600 mg PO BID citalopram 10 mg tablet 10 mg PO DAILY diclofenac sodium 1 % gel 1 ea TOPICAL QIDP PRN (Reason: Mild Pain (Scale Score 1-4)) levothyroxine 50 mcg tablet 50 mcg PO DAILY Jardiance 10 mg tablet 10 mg PO DAILY Problem Reconciliation Problems Reviewed?: Yes Patient Discharge Instructions ACTIVITY: Continue current activity DIET: continue same diet Patient Instructions: DI for Heart Failure, DI for Chronic Obstructive Pulmonary Disease, DI for Hyperkalemia, DI for Acute Kidney Injury Print Language: Tajik Providers Primary Care Provider: Solange Mills Admit Provider: Arpit Berkowitz Attending Provider: Arpit Berkowitz
[2024-01-24] MEDS: FUROSEMIDE 40MG/4ML VIAL 40 MG IV (10:52)
[2024-01-24] MEDS: predniSONE 20MG TAB 40 MG PO (10:52)
--- NOTE | 2024-01-24 13:12 | EXP.CARD.CON ---
History of Present Illness History of Present Illness Consult date: 01/24/24 Requesting physician: Salazar Arreola Consult reason: shortness of breath Chief complaint: SOA History of present illness: This is a 63-year-old white female who was admitted to the hospital with shortness of breath and lower extremity edema. The patient states that she had been having shortness of breath since last . She states that this got severe. It was associated with bilateral lower extremity edema, orthopnea and pleuritic chest discomfort intermittently. She states she also had an associated cough with greenish colored sputum. She also was having some nausea, orthopnea and PND. She denies any fever, chills, vomiting or diarrhea. The patient states that chest discomfort felt like a tightness that she rated an 8 out of 10 in intensity. It did not radiate. The patient has been treated with IV Lasix and states that her symptoms have resolved. She states that she is feeling much better and she is ready to be discharged home today. [facility] Disclaimer: The information contained in this section may have been updated after the patient was seen, as this information can be updated by other users. Medical History (Updated 01/24/24 @ 13:15 by Dea Hargrove APRN) Acute on chronic HFrEF (heart failure with reduced ejection fraction) Normal coronary arteries Unstable angina Atypical angina HFrEF (heart failure with reduced ejection fraction) Atrial flutter with rapid ventricular response Elevated liver enzymes Smoking greater than 30 pack years Dyspnea on exertion Pulmonary emphysema Dyspnea Afib Sinus bradycardia Chronic, continuous use of opioids Right rotator cuff tear Hypothyroidism Atrial fibrillation/flutter Pulmonary hypertension Hepatitis C Tobacco dependence (HFpEF) heart failure with preserved ejection fraction Hyperlipidemia Hypertension COPD (chronic obstructive pulmonary disease) Surgical History History of hysterectomy History of surgery on right wrist History of mandibular surgery History of left heart catheterization History of cholecystectomy S/P rotator cuff repair H/O splenectomy History of cardioversion Family History Mother Stroke Father Coronary artery disease Social History (Updated 01/23/24 @ 03:44 by Yoana Araiza RN) Smoking Status: Current some day smoker tobacco type: cigarettes packs per day: 1 years smoked: 40 second hand exposure: Yes alcohol intake: never substance use type: denies use current occupational status: unemployed and disabled Travel in the last 8 weeks: None household members: none housing: house lives independently: Yes marital status: single number of children: 3 current occupation: Disabled caffeine: Yes Have you lived/traveled outside [place] in past 30 days?: No Contact w/someone who lives/traveled outside US past 30 days?: No Exposure to someone with infectious disease in past 14 days?: No Do you have a fever (greater than 100.4 F or 38 C)?: No Have you tested positive for COVID-19: No Exposed to someone with COVID-19 in past 14 days?: No Do you have a sore throat?: No Do you have a cough?: No Do you have any weakness?: No Do you have any diarrhea?: No Are you experiencing any unusual bleeding?: No Do you have any muscle aches/pain?: No Do you have any abdominal pain?: No Are you experiencing loss of taste or smell?: No Review of Systems Review of Systems Review of systems:: pertinent systems reviewed and negative unless documented below Constitutional Constitutional: Reports fatigue, Reports lethargy and Reports weakness Eyes Eyes: Reports system reviewed and no additional complaints, except as documented ENT Ears, Nose, Mouth, and Throat: Reports system reviewed and no additional complaints, except as documented *Cardiovascular Cardiovascular: Reports system reviewed and no additional complaints, except as documented, Reports chest pain, Reports chest pain at rest, Reports chest pain with activity, Reports dyspnea and Reports dyspnea on exertion *Respiratory Respiratory: Reports system reviewed and no additional complaints, except as documented, Reports chest congestion, Reports cough, Reports dyspnea, Reports dyspnea on exertion and Reports excessive phlegm production *Gastrointestinal Gastrointestinal: Reports system reviewed and no additional complaints, except as documented *Genitourinary Genitourinary: Reports system reviewed and no additional complaints, except as documented *Musculoskeletal Musculoskeletal: Reports system reviewed and no additional complaints, except as documented Integumentary/Breasts Skin/Breast: Reports system reviewed and no additional complaints, except as documented *Neurologic Neurologic: Reports system reviewed and no additional complaints, except as documented and Reports weakness Psychiatric Psychiatric: Reports system reviewed and no additional complaints, except as documented Endocrine Endocrine: Reports system reviewed and no additional complaints, except as documented and Reports fatigue Hematologic/Lymphatic Hematologic/Lymphatic: Reports system reviewed and no additional complaints, except as documented Allergic/Immunologic Allergic/Immunologic: Reports system reviewed and no additional complaints, except as documented Exam Data for Last 24 hours Vital signs and Labs for Last 24 Hours: Temp Pulse Resp BP Pulse Ox O2 Del Method O2 Flow Rate 98.0 F 55 L 20 116/68 94 L Room Air 1 01/24/24 08:00 01/24/24 11:09 01/24/24 08:00 01/24/24 08:00 01/24/24 08:00 01/24/24 11:00 01/24/24 05:50 FiO2 28 01/23/24 18:28 Laboratory Results - last 24 hr 01/23/24 14:00: Sodium 138, Potassium 5.2 H, Chloride 107, Carbon Dioxide 26, Anion Gap 10.2, BUN 43 H, Creatinine 1.70 H, Estimated Creat Clear 18, Estimated GFR 31 L, Est GFR ( Amer) 37 L, Glucose 133 H D, Calcium 8.6 01/23/24 18:21: Sodium 138, Potassium 5.1, Chloride 105, Carbon Dioxide 27, Anion Gap 11.1, BUN 49 H, Creatinine 1.80 H, Estimated Creat Clear 17, Estimated GFR 29 L, Est GFR ( Amer) 35 L, Glucose 124 H, Calcium 8.7 01/24/24 06:32: WBC 18.6 H D, RBC 4.49, Hgb 13.2, Hct 40.8, MCV 90.9, MCH 29.3, MCHC 32.3, RDW 19.5 H, Plt Count 332, MPV 8.9, Neut % (Auto) 89.0 H, Lymph % (Auto) 6.5 L, [place] % (Auto) 4.2, Eos % (Auto) 0.1, Baso % (Auto) 0.2, Neut # (Auto) 16.5 H, Lymph # (Auto) 1.2, [place] # (Auto) 0.8, Eos # (Auto) 0.0, Baso # (Auto) 0.0, Total Counted 100, Neutrophils % (Manual) 97 H, Lymphocytes % (Manual) 3 L, Platelet Estimate Normal, Hypochromasia 1+, Anisocytosis 1+, Sodium 134 L, Potassium 4.8, Chloride 103, Carbon Dioxide 28, Anion Gap 7.8, BUN 57 H, Creatinine 1.90 H, Estimated Creat Clear 38, Estimated GFR 27 L, Est GFR ( Amer) 33 L, Glucose 123 H, Calcium 9.0, Magnesium 2.6 H D I & O for Last 24 hours: Intake & Output 01/21/24 01/22/24 01/23/24 01/24/24 23:59 23:59 23:59 23:59 Intake Total 1320 / 1320 360 / 360 Output Total 0 / 0 0 / 0 Balance 1320 / 1320 360 / 360 Weight 71 lb 4.912 oz 170 lb 1.6 oz Microbiology Reports for the Last 24 Hours: Microbiology 01/23/24 06:50 Sputum - Expectorated Sputum Gram Stain - Final Constitutional Constitutional: no acute distress and average body habitus *Routine HEENT Exam Head: Present normocephalic and atraumatic ENT: Present mucous membranes moist *Routine Neck Exam Neck: Present supple, full ROM and normal carotid upstroke; Absent JVD, carotid bruit or lymphadenopathy *Routine Respiratory Exam Respiratory: Present CTA bilaterally, normal respiratory effort, able to speak in complete sentences and symmetric chest movement *Routine Cardiovascular Exam Cardiovascular: Present RRR, Normal S1 and Normal S2; Absent murmur or gallop *Routine Abdominal Exam Abdominal: Present soft and normoactive bowel sounds; Absent tenderness, distended or organomegaly *Routine Extremities Exam Extremities: Present full ROM, pulses intact and normal capillary refill; Absent cyanosis, clubbing or edema *Routine Skin Exam Skin: Present intact and warm; Absent erythema *Routine Neurological Exam Neurological: Present alert, oriented X3 and CN II-XII intact; Absent sensory deficit or motor deficit Routine Psychiatric Exam Psychiatric: Present normal affect Meds Home Medications and Allergies Home Medications ?Medication ?Instructions ?Recorded ?Confirmed ?Type pantoprazole 40 mg tablet,delayed 40 mg PO DAILY GERD #90 tabs 03/04/21 01/23/24 Rx release citalopram 10 mg tablet 10 mg PO DAILY 03/01/22 01/23/24 History diclofenac sodium 1 % topical gel 1 ea topical QIDP PRN Mild Pain 03/01/22 01/23/24 History (Scale Score 1-4) levothyroxine 50 mcg tablet 50 mcg PO DAILY 03/01/22 01/23/24 History aspirin 81 mg tablet,delayed 81 mg PO DAILY #100 tabs 01/28/23 01/23/24 Rx release atorvastatin 40 mg tablet 40 mg PO HS Cholesterol #30 tabs 01/28/23 01/23/24 Rx famotidine 40 mg tablet 40 mg PO BID acid reflux #60 tabs 01/28/23 01/23/24 Rx diclofenac sodium 75 mg 75 mg PO BID 04/13/23 01/23/24 History tablet,delayed release lidocaine 5 % topical patch 1 patch topical DAILY 04/13/23 01/23/24 History (Lidoderm) empagliflozin 10 mg tablet 10 mg PO DAILY 07/19/23 01/23/24 History (Jardiance) rivaroxaban 20 mg tablet (Xarelto) 20 mg PO QPMWITHMEAL 10/23/23 01/23/24 History fluticasone fur. 100 mcg-umeclid 1 inh inhalation DAILY 30 days #60 10/29/23 01/23/24 Rx 62.5 mcg-vilant 25 mcg ea inhalat.powder (Trelegy Ellipta) amiodarone 200 mg tablet 200 mg PO BID 30 days #60 tabs 12/08/23 01/23/24 Rx metoprolol succinate 100 mg 100 mg PO BID 30 days #60 tabs 12/08/23 01/23/24 Rx tablet,extended release 24 hr spironolactone 25 mg tablet 12.5 mg (1/2 x 25 mg) PO DAILY 30 12/08/23 01/23/24 Rx days #30 tabs torsemide 20 mg tablet 20 mg PO DAILY 30 days #30 tabs 12/08/23 01/23/24 Rx gabapentin 600 mg tablet 600 mg PO BID 01/23/24 01/23/24 History doxycycline hyclate 100 mg tablet 100 mg PO Q12H 3 days #6 tabs 01/24/24 Rx prednisone 20 mg tablet 40 mg (2 x 20 mg) PO DAILY 3 days 01/24/24 Rx #6 tabs New Prescriptions to Start Prescriptions: doxycycline hyclate Salazar Arreola prednisone Salazar Arreola Allergies Allergy/AdvReac Type Severity Reaction Status Date / Time codeine Allergy Mild Nausea Verified 11/04/23 11:13 penicillin G (PENICILLIN G) Allergy Mild I-RASH/NV Verified 11/04/23 11:13 acetaminophen (ACETAMINOPHEN) AdvReac Mild NOT Verified 11/04/23 11:13 ALLERGIC. NEED TO WATCH DUE TO LIVER Assessment and Plan *Assessment and plan (1) Acute on chronic HFrEF (heart failure with reduced ejection fraction): Status: Acute Category: Medical Code(s): I50.23 - Acute on chronic systolic (congestive) heart failure (2) Acute and chronic respiratory failure with hypercapnia: Status: Acute Category: Medical Code(s): J96.22 - Acute and chronic respiratory failure with hypercapnia (3) COPD exacerbation: Status: Acute Category: Medical Code(s): J44.1 - Chronic obstructive pulmonary disease with (acute) exacerbation (4) JAYJAY (acute kidney injury): Status: Acute Category: Medical Code(s): N17.9 - Acute kidney failure, unspecified (5) Normal coronary arteries: Status: Acute Category: Medical (6) Afib: Status: Acute Qualifiers: Atrial fibrillation type: paroxysmal Qualified Code(s): I48.0 - Paroxysmal atrial fibrillation Category: Medical Code(s): I48.91 - Unspecified atrial fibrillation (7) Dyspnea: Status: Acute Qualifiers: Dyspnea type: shortness of breath Qualified Code(s): R06.02 - Shortness of breath Category: Medical Code(s): R06.00 - Dyspnea, unspecified (8) Hypertension: Status: Chronic Qualifiers: Hypertension type: primary hypertension Qualified Code(s): I10 - Essential (primary) hypertension Category: Medical Code(s): I10 - Essential (primary) hypertension (9) Hyperlipidemia: Status: Chronic Qualifiers: Hyperlipidemia type: mixed hyperlipidemia Qualified Code(s): E78.2 - Mixed hyperlipidemia Category: Medical Code(s): E78.5 - Hyperlipidemia, unspecified Plan Plan: 1. The patient was admitted to the hospital due to shortness of breath. The patient was found to have a COPD exacerbation and acute on chronic HFrEF. The patient has been diuresed with IV Lasix. Will give her an additional dose of Lasix 40 mg IV x 1 dose today and then she can resume torsemide 20 mg p.o. daily. 2. Her spironolactone was stopped due to hyperkalemia. Will continue to hold her spironolactone. 3. Continue Jardiance, metoprolol for HFrEF. 4. Her blood pressure is too low to add Entresto at this time for the HFrEF. 5. The patient does have a history of paroxysmal atrial fibrillation. She is currently in sinus rhythm. Continue amiodarone and metoprolol for atrial fibrillation suppression. 6. Continue Xarelto for long-term anticoagulation. She denies any bleeding. 7. The patient is currently being treated for COPD exacerbation. Will defer this to the hospitalist and pulmonology. 8. The patient current creatinine is up to 1.9. She does have to be kept prerenal to keep her out of pulmonary edema. Her spironolactone has been stopped. Continue torsemide at this time. 9. No further recommendations at this time from a cardiac standpoint. The patient can be discharged home today from a cardiac standpoint with close follow-up in cardiology clinic next week. 10. The patient can be discharged on the following cardiac medications: Amiodarone 200 mg p.o. twice daily, aspirin 81 mg daily, atorvastatin 40 mg p.o. nightly, Jardiance 10 mg daily, Toprol-XL 100 mg daily, Protonix 40 mg daily, torsemide 20 mg daily, Xarelto 20 mg daily. Thank you for the opportunity to help dissipate in the care of this patient. All recommendations and orders are per Dr. Ruano.
[2024-01-24] MEDS: ONDANSETRON 4MG/2ML VIAL 4 MG IV (13:53)
--- NOTE | 2024-01-26 10:59 | SW/DCPLANNER ---
Phoned patient x2 and each time the patient didnt answer and could not leave a message or call back number due to not being sat up yet. J Carlos GHOTRA Talkback Host
[2024-01-26 22:17] LABS: HCV Ab Reactive (Non Reactive)
== END 2024-01-24 14:33 | disposition home or self-care (01) ==
LOC: ER 02:26 → 2ND 02:29
PROVIDERS: Internal Medicine; Internal Medicine Adolescent Medicine; Admitting Provider Student in an Organized Health Care Education/Training Program; Emergency Provider Emergency Medicine; PCP Nurse Practitioner; Visit Provider Student in an Organized Health Care Education/Training Program
DX: J44.1 Chronic obstructive pulmonary disease with (acute) exacerbation (principal); J96.22 Acute and chronic respiratory failure with hypercapnia; E87.5 Hyperkalemia; N17.9 Acute kidney failure, unspecified; F17.210 Nicotine dependence, cigarettes, uncomplicated; I48.91 Unspecified atrial fibrillation; I50.20 Unspecified systolic (congestive) heart failure; I11.0 Hypertensive heart disease with heart failure; Z79.899 Other long term (current) drug therapy; Z79.01 Long term (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; Z99.81 Dependence on supplemental oxygen; I25.110 Atherosclerotic heart disease of native coronary artery with unstable angina pectoris; I27.20 Pulmonary hypertension, unspecified; E03.9 Hypothyroidism, unspecified
CPT/HCPCS: 36415; 71046; 80048; 80053; 82803; 83036; 83605; 83735; 83880; 84145; 84484; 85007; 85025; 85027; 85378; 85610; 86803; 87070; 87077; 87186; 87205; 87389; 87633; 93005; 94640; 94760; 99291; G0378; J0696; J1885; J1940; J2270; J2405; J2919; J7030; J7120; J7620

== ENCOUNTER 2024-04-07 15:11 | Outpatient (CLI) | payer MEDICAID, SELFPAY | END 2024-04-07 23:59 | disposition home or self-care (01) | LOC: RT 15:11 | PROVIDERS: PCP Nurse Practitioner; Visit Provider Internal Medicine | DX: I11.0 Hypertensive heart disease with heart failure (principal); I50.20 Unspecified systolic (congestive) heart failure; I48.92 Unspecified atrial flutter; N17.9 Acute kidney failure, unspecified; E78.2 Mixed hyperlipidemia | CPT/HCPCS: 93308 ==

== ENCOUNTER 2024-08-24 14:00 | Outpatient (RCR) | payer MEDICAID, SELFPAY | END 2024-09-06 23:59 | disposition home or self-care (01) | LOC: PT.CARL 14:00 | PROVIDERS: PCP Nurse Practitioner; Visit Provider Orthopaedic Surgery Adult Reconstructive Orthopaedic Surgery | DX: L02.511 Cutaneous abscess of right hand (principal) | CPT/HCPCS: 97110; 97162 ==

== ENCOUNTER 2024-10-02 14:00 | Outpatient (RCR) | payer MEDICAID, SELFPAY | END 2024-10-05 23:59 | disposition home or self-care (01) | LOC: PT.CARL 14:00 | PROVIDERS: PCP Nurse Practitioner; Visit Provider Student in an Organized Health Care Education/Training Program | DX: M25.641 Stiffness of right hand, not elsewhere classified (principal) | CPT/HCPCS: 97032; 97110; 97140; 97162 ==

== ENCOUNTER 2024-10-26 15:00 | Outpatient (RCR) | payer MEDICAID, SELFPAY | END 2024-11-02 23:59 | disposition home or self-care (01) | LOC: PT.CARL 15:00 | PROVIDERS: PCP Nurse Practitioner; Visit Provider Student in an Organized Health Care Education/Training Program | DX: M25.641 Stiffness of right hand, not elsewhere classified (principal) | CPT/HCPCS: 97014; 97032; 97110; 97140; 97164; 97530; G0283 ==

== ENCOUNTER 2024-12-16 10:28 | Inpatient (IN) | payer MEDICAID, SELFPAY ==
[2024-12-16] VITALS (17 sets, daily range): BP systolic 94–138; BP diastolic 56–91; PULSE 74–88; RESP 16–29; TEMP 36.7–38.1; O2SAT 88–93; BMI 21.4; BMI 22.4
[2024-12-16 10:30] LABS: Lactate Venous 1.7 mmol/L (0.4-2.0); VBG HCO3 28.5 mmol/L (23-30); VBG PH 7.35 mmol/L (7.31-7.41); VBG PO2 29.3 mmol/L (28-40)
[2024-12-16 10:35] LABS: VBG PCO2 52.9 mmol/L (35-51)
--- OUTSIDE RECORDS SUMMARY | 2024-12-16 10:39 | XMS_ITS | Clinical Summary ---
Author Organization [facility] Address [address] [place] [address] Phone Care Team Providers Care Order Entry Clerk Name Role Phone Kasey Cowan RN Unavailable Unavailable Conditions or Problems Problem Name Problem Code Onset Date Status Entry Date Provider Comment Standard Description Annotate Effusion, right shoulder M25.411 (ICD-10-CM ) 08/12 Active 08/12 Selma Adán Effusion, right shoulder Persistent atrial fibrillation 473479751 (SNOMED CT) 08/12 Active 08/12 Selma Adán Persistent atrial fibrillation prison (current) use of anticoagulant s, Eliquis Z79.01 (ICD-10-CM ) 08/12 Active 08/12 Selma Adán prison (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 Septic arthritis, right shoulder (identify bacteria) (B96 codes) M00.811 (ICD-10-CM ) 08/12 Active 08/12 Selma Adán Arthritis due to other bacteria, right shoulder Cellulitis, shoulder, right 819982887 (SNOMED CT) 08/12 Active 08/12 Selma Adán Cellulitis of upper limb COPD 83195929 (SNOMED CT) 08/12 Active 08/12 Selma Adán Chronic obstructive pulmonary disease Benign Essential Hypertension 88466866 (SNOMED CT) 08/12 Active 08/12 Selma Adán Benign hypertension Nicotine dependence, cigarettes 12303346 (SNOMED CT) 08/12 Active 08/12 Selma Adán Cigarette smoker Nicotine dependence 19036323 (SNOMED CT) 08/12 Inactive 08/12 Gypsy Calina Nicotine dependence Medications Medication Instructions Start Date Stop Date Generic Name NDC Provider divina gayr 2GM IV Q24hrs - [facility] divina Cowan RN ONDANSETRON HCL 4 MG TABS Take 1 tablet by mouth Every 6 (Six) Hours As Needed for Nausea or Vomiting for up to 7 days ondansetron hcl [id number] Elsie June LEVOTHYROXINE SODIUM 50 MCG TABS Take 1 tablet by mouth Daily levothyroxine 57558600579 Elsie June NALOXONE HCL 4 MG/0.1ML LIQD Call 911. Don't prime. [place] in 1 nostril for overdose. Repeat in 2-3 minutes in other nostril if no or minimal breathing/respo nsiveness naloxone [id number] Elsie June GABAPENTIN 600 MG TABS Take 1 tablet by mouth Daily. gabapentin 07291874866 Elsie June IRBESARTAN 75 MG TABS Take 1 tablet by mouth Daily irbesartan 57348250593 Elsie June OXYCODONE HCL 5 MG TABS Take 1 tablet by mouth Every 4 (Four) Hours As Needed for Moderate Pain oxycodone 70118632474 Elsie June PANTOPRAZOLE SODIUM 40 MG TBEC Take 1 tablet by mouth Daily pantoprazole 29523598051 Elsie June VENTOLIN HFA 108 (90 Base) MCG/ACT AERS Inhale 2 puffs Every 4 (Four) Hours As Needed for Wheezing or Shortness of Air. albuterol sulfate 51933843426 Elsie June SYMBICORT 160-4.5 MCG/ACT AERO Inhale 2 puffs 2 (Two) Times a Day budesonide-formo terol 16921064485 Elsie June FUROSEMIDE 20 MG TABS Take 1 tablet by mouth Daily. furosemide 46067633644 Elsie June ASPIRIN 81 MG TBEC Take 1 tablet by mouth Daily aspirin 03780882938 Elsie June ATORVASTATIN CALCIUM 40 MG TABS Take 1 tablet by mouth Every Night. atorvastatin 17446692994 Elsie June ALBUTEROL SULFATE 1.25 MG/3ML NEBU 3 mL Every 6 (Six) Hours As Needed for Wheezing or Shortness of Air albuterol sulfate 93992681410 Elsie June apixaban 5 mg tablet Take 1 tablet by mouth 2 (Two) Times a Day. HOLD 48 HOURS PRIOR TO SURGERY apixaban Elsie June CITALOPRAM HYDROBROMIDE 10 MG TABS Take 1 tablet by mouth Daily citalopram [id number] Elsie June DULOXETINE HCL 30 MG CPEP Take 1 capsule by mouth Daily. duloxetine 13519422606 Elsie June FAMOTIDINE 40 MG TABS Take 1 tablet by mouth 2 (Two) Times a Day. famotidine 18856122316 Elsie June DICLOFENAC SODIUM ER 100 MG [id number] Take 75 mg by mouth 2 (Two) Times a Day diclofenac sodium 48621740784 Elsie June DILTIAZEM HCL ER BEADS 240 MG [id number] Take 1 capsule by mouth 2 (Two) Times a Day diltiazem hcl [id number] Elsie June ceftriaxone recon soln 2GM IV Q24hrs - [facility] ceftriaxone recon soln Mimi Lopez Medications Administered No information available. Allergies, Adverse Reactions, Alerts Allergy Name Reaction Description Start Date Severity Status Provider AMOXICILLIN Moderate Active Mamadou Garcia MD PENICILLIN V POTASSIUM Moderate Active Elsie June CODEINE SULFATE Confusion Moderate Active Cou rtney June ACETAMINOPHEN Upset stomach Moderate Active C ourtney June Results Date Name Value Unit Range Flag Description Clinical Lists Update: Prelo ad VAPE_USE Current Tobacco smok ing status Office Visit: Office Visit:r m 1 MEDS [...] Procedures Code Procedure Name Date Entry Date [id number] CBC with Differential 2022 CPT-16852 CMP CPT-11569 C- reactive protein CPT-83870 Sedimentation Rate (ESR) 202 04/14/17 [id number] CBC with Differential 2022 CPT-31238 CMP CPT-42687 C- reactive protein CPT-10316 Sedimentation Rate (ESR) 202 04/14/12 CPT-sl STAT Labs CPT-21854 CMP CPT-52721 Sedimentation Rate (ESR) 202 04/14/05 CPT-82161 C- reactive protein [id number] CBC with Differential 2022 CPT-sl STAT Labs [...] Weight Measured 159.4 [lb_av] weight E& M Weight Measured 159.4 [lb_av] weight E& M Immunizations No information available. Advance Directives Directive Description Start Date NO ADVANCED MEDICAL DIRECTIVES AT THIS T URVASHI
--- OUTSIDE RECORDS SUMMARY | 2024-12-16 10:39 | XMS_ITS | Continuity of Care Document ---
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 Plan of Treatment Reminders Order Date Submit Date Provider Last Modified By Organization Details Last Modified Time Details Appointments None recorded. Lab None recorded. Referral None recorded. Procedures None recorded. Surgeries None recorded. Imaging None recorded. Medication Orders meclizine 25 mg tablet 2024 025 [facility], [address] [place] [address], [id number], 17:53:05 atorvastati n 40 mg tablet 2024 025 [facility], [address] [place] [address], [id number], 17:53:07 gabapentin 600 mg tablet 2024 025 [facility], [address] [place] [address], [address], 16:24:21 levothyroxi ne 50 mcg tablet 2024 025 [facility], [address] [place] [address], [id number], 13:06:29 diclofenac 1 % topical gel 2024 025 [facility], [address] [place] [address], [address], 13:06:28 diclofenac sodium 75 mg tablet,monserrat yed release 2024 025 [facility], [address] [place] [address], [address], 16:24:21 Lidoderm 5 % topical patch 2024 025 [facility], [address] [place] [address], [address], 17:53:08 ipratropium 0.5 mg-albutero l 3 mg (2.5 mg base)/3 mL nebulizatio n soln 2024 025 [facility], [address] [place] [address], [address], 15:52:52 Symbicort 160 mcg-4.5 mcg/actuati on HFA aerosol inhaler 2024 025 [facility], [address] [place] [address], [address], 17:18:21 Trelegy Ellipta 100 mcg-62.5 mcg-25 mcg powder for inhalation 2024 025 [facility], [address] [place] [address], [id number], 12:35:47 Ventolin HFA 90 mcg/actuati on aerosol inhaler 2024 025 [facility], [address] [place] [address], [address], 17:53:07 citalopram 10 mg tablet 2024 025 [facility], [address] [place] [address], [address], 16:24:22 duloxetine 30 mg capsule,del ayed release 2024 025 [facility], [address] [place] [address], [address], 13:06:30 Xarelto 20 mg tablet 2024 025 [facility], [address] [place] [address], [address], 17:53:06 famotidine 40 mg tablet 2024 [facility], [address] [place] [address], [address], 13:06:29 pantoprazol e 40 mg tablet,monserrat yed release 2024 025 [facility], [address] [place] [address], [address], 13:06:28 Patient TargetsNo targets recorded. Patient InstructionsNo instructions recorded. Reason for Referral None Reported. Problems Name Problem SNOMED Code Status Onset Date Resolution Date Notes Provider Name and Address Organization Details Recorded Time Low back pain [id number] Completed 201611/19/2016 Problem Code: M54.5; Problem Code Type: ICD-10; Not Available [facility] 21:02:22 Tension- type headache 837816248 Completed 201601/18/2017 Problem Code: G44.209; Problem Code Type: ICD-10; Not Available [facility] 21:02:20 Acute bronchit is 62466648 Completed 201601/18/2017 Problem Code: J20.8; Problem Code Type: ICD-10; Not Available [facility] 21:02:26 Pain of right shoulder joint 59035291790 559380 Completed 201601/18/2017 Problem Code: M25.511; Problem Code Type: ICD-10; KING ruiz [facility] [employer] [facility]. 16:09:51 Psychoge radha headache 82759591 Completed 201601/18/2017 Problem Code: 307.81; Problem Code Type: ICD-9; Not Available [facility] 21:02:31 Shoulder joint pain 938766310 Completed 201601/18/2017 Problem Code: 719.41; Problem Code Type: ICD-9; Not Available [facility] 21:02:37 Hyperten sive disorder 80317919 Completed 201711/16/2017 Problem Code: I10; Problem Code Type: ICD-10; Not Available [facility] 21:02:21 Acute sinusiti s 71556258 Completed 201711/01/2017 Problem Code: J01.90; Problem Code Type: ICD-10; Not Available [facility] 21:02:21 Persiste nt asthma [id number] 03 Active 2017 Problem Code: J45.41; Problem Code Type: ICD-10; Not Available [facility] 21:02:21 Low back pain 156205731 Completed 201707/16/2020 Problem Code: M54.5; Problem Code Type: ICD-10; Not Available [facility] 21:02:22 Right lower quadrant pain 406795936 Completed 201712/17/2017 Problem Code: R10.31; Problem Code Type: ICD-10; Not Available [facility] 21:02:23 Benign essentia l hyperten kevin 2392847 Active 2017 Problem Code: 401.1; Problem Code Type: ICD-9; Not Available [facility] 21:02:31 Left lower quadrant pain 400603570 Completed 201712/17/2017 Problem Code: R10.32; Problem Code Type: ICD-10; Not Available [facility] 21:02:32 Epigastr ic mass 899893881 Completed 201712/17/2017 Not Available [facility] 2 21:02:32 Periumbi lical pain 432725430 Completed 201712/17/2017 Problem Code: 789.05; Problem Code Type: ICD-9; Not Available [facility] 2 21:02:33 Extrinsi c asthma with asthma attack Completed 201707/16/2020 Problem Code: 493.02; Problem Code Type: ICD-9; Not Available [facility] 2 21:02:37 Abdomina l mass 098881641 Completed 201712/17/2017 Not Available [facility] 2 21:02:38 Pain of right hip joint 30075157075 9102 Completed 201701/19/2020 Problem Code: M25.551; Problem Code Type: ICD-10; KING ruiz [employer] 2 16:09:51 Polyalgi a 083604868 Completed 201711/23/2017 Problem Code: M79.89; Problem Code Type: ICD-10; Not Available [facility] 2 21:02:30 Pain of hip region 76197375 Completed 201707/16/2020 Problem Code: 719.45; Problem Code Type: ICD-9; Not Available [facility] 2 21:02:32 Swelling of limb 58714341 Completed 201711/23/2017 Problem Code: 729.81; Problem Code Type: ICD-9; Not Available [facility] 2 21:02:33 Benign cutaneou s vascular tumor Completed 201701/19/2020 Problem Code: D21.9; Problem Code Type: ICD-10; Not Available [facility] 21:02:20 Iodine deficien cy syndrome 296436266 Completed 201712/30/2021 Problem Code: E01.8; Problem Code Type: ICD-10; KING ruiz [employer] 2 16:09:51 Mixed hyperlip idemia 271411109 Active 2017 Problem Code: E78.2; Problem Code Type: ICD-10; Not Available [facility] 21:02:20 Gastroes ophageal reflux disease without esophagi tis 483123048 Active 2017 Not Available [facility] 21:02:28 Acquired hypothyr oidism 204999184 Completed 201707/16/2020 Problem Code: 244.8; Problem Code Type: ICD-9; Not Available [facility] 2 21:02:29 Benign neoplasm of soft tissue 51471704 Completed 201707/16/2020 Problem Code: 215.8; Problem Code Type: ICD-9; Not Available [facility] 21:02:30 Gastroes ophageal reflux disease 862344795 Completed 201707/16/2020 Problem Code: 530.81; Problem Code Type: ICD-9; Not Available [facility] 21:02:33 Fracture of fibula 00381620 Completed 201701/25/2018 Problem Code: S82.402A ; Problem Code Type: ICD-10; Not Available [facility] 21:02:24 Closed fracture of shaft of fibula 18836845 Completed 201701/25/2018 Problem Code: 823.21; Problem Code Type: ICD-9; Not Available [facility] 21:02:38 Chronic obstruct melanie pulmonar y disease 41632723 Active 2017 Problem Code: J44.9; Problem Code Type: ICD-10; Not Available [facility] 2 21:02:21 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 949679104 Active 2017 Problem Code: E01.1; Problem Code Type: ICD-10; Not Available [facility] 21:02:20 Chronic obstruct melanie pulmonar y disease with acute lower respirat ory infectio n 449583482 Completed 201701/19/2020 Problem Code: J44.0; Problem Code Type: ICD-10; Not Available [facility] 2 21:02:21 Goiter 6451155 Completed 201707/16/2020 Problem Code: 240.9; Problem Code Type: ICD-9; Not Available [facility] 2 21:02:28 Acute exacerba tion of chronic bronchit is 466838941 Completed 201707/16/2020 Not Available [facility] 2 21:02:37 Screenin g mammogra phy Completed 201703/25/2018 Problem Code: Z12.31; Problem Code Type: ICD-10; KINGCATARINO ÁLVAREZ [employer] 2 16:09:51 Benign neoplasm of thyroid gland 42185386 Active 2018 Problem Code: D34; Problem Code Type: ICD-10; Not Available [facility] 21:02:20 Pain of right hip joint 40662513898 9102 Completed 201812/30/2021 Problem Code: M25.551; Problem Code Type: ICD-10; KING ÁLVAREZ [employer] 2 16:09:51 Screenin g mammogra phy Completed 201801/19/2020 Problem Code: Z12.31; Problem Code Type: ICD-10; KING ruiz, [employer] 2 16:09:51 Digestiv e system disease screenin g Completed 201801/19/2020 Problem Code: Z13.811; Problem Code Type: ICD-10; Not Available [facility] 2 21:02:26 Suprapub ic pain 853764449 Completed 201812/30/2021 KINGCATARINO ÁLVAREZ [employer], [employer] 2 16:09:51 Screenin g mammogra phy Completed 201812/30/2021 Problem Code: Z12.31; Problem Code Type: ICD-10; KINGCATARINO ruiz, [employer] 2 16:09:51 Generali zed hyperhid kasie 035045891 Completed 201812/30/2021 Problem Code: R61; Problem Code Type: ICD-10; KING ruiz, [employer] 2 16:09:51 Mert rob present 024509311 Active 2018 Problem Code: N95.1; Problem Code Type: ICD-10; KING ÁLVAREZ [employer] 2 16:10:21 Body mass index 25-29 - overweig ht 649555174 Completed 201807/16/2020 Problem Code: Z68.29; Problem Code Type: ICD-10; KING ruiz, [employer] 16:09:51 Tobacco user 103574055 Active 2018 Not Available [facility] 21:02:29 Screenin g mammogra phy Completed 201801/19/2020 Problem Code: Z12.31; Problem Code Type: ICD-10; KING ÁLVAREZ [employer] 16:09:51 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 2 16:09:51 Body mass index 30+ - obesity 490295111 Completed 201801/19/2020 Problem Code: Z68.30; Problem Code Type: ICD-10; Not Available [facility] 2 21:02:27 Current drug user 817766317 Completed 201801/19/2020 Problem Code: Z79.899; Problem Code Type: ICD-10; Not Available [facility] 2 21:02:29 [place] 769330117 Completed 201912/30/2021 Problem Code: R23.2; Problem Code Type: ICD-10; KINGCATARINO ÁLVAREZ sara, [employer] 2 16:09:51 Pain of right wrist 90244397376 9100 Completed 201901/19/2020 Problem Code: M25.531; Problem Code Type: ICD-10; Not Available [facility] 2 21:02:21 Screenin g mammogra phy Completed 201901/19/2020 Problem Code: Z12.31; Problem Code Type: ICD-10; KING PREETI [employer], [employer] 2 16:09:51 Fibromya lgia 614806367 Active 2019 Problem Code: M79.7; Problem Code Type: ICD-10; Not Available [facility] 2 21:02:22 General examinat ion of patient Completed 201912/30/2021 KING PREETI [employer], [employer] 2 16:09:51 Ganglion of wrist 195503653 Completed 202012/30/2021 Problem Code: M67.431; Problem Code Type: ICD-10; KINGCATARINO ÁLVAREZ sara, [employer] 2 16:09:51 Trochant sha bursitis of left hip 75156156973 9103 Completed 202007/16/2020 Not Available [facility] 2 21:02:22 Nicotine dependen ce 25617428 Active 2020 Problem Code: F17.200; Problem Code Type: ICD-10; Not Available [facility] 2 21:02:20 Body mass index 25-29 - overweig ht 414887951 Completed 202007/16/2020 Problem Code: Z68.26; Problem Code Type: ICD-10; KING ruiz, [employer]. 16:09:51 Dizzines s and giddines s 138825664 Completed 202012/30/2021 Problem Code: R42; Problem Code Type: ICD-10; KING ruiz, [employer]. 16:09:51 Body mass index 25-29 - overweig ht 420775537 Completed 202012/30/2021 Problem Code: Z68.26; Problem Code Type: ICD-10; KING ruiz, [employer]. 16:09:51 Low back pain 159519880 Active 2020 Problem Code: M54.5; Problem Code Type: ICD-10; Not Available [facility] 21:02:21 Influenz a vaccine needed 23086276899 06 Completed 202010/10/2020 Problem Code: Z23; Problem Code Type: ICD-10; KING ruiz, [employer]. 16:09:51 Pain of right shoulder joint 58704851640 719177 Completed 202012/30/2021 Problem Code: M25.511; Problem Code Type: ICD-10; KING ruiz, [employer]. 16:09:51 Dizzines s and giddines s 358862958 Completed 202011/26/2020 Problem Code: R42; Problem Code Type: ICD-10; KING ruiz, [employer]. 16:09:51 Influenz a vaccine needed 31012879202 06 Completed 202012/30/2021 Problem Code: Z23; Problem Code Type: ICD-10; KING ÁLVAREZ null, [employer]. 16:09:51 Tachycar oanh 4556250 Active 2020 KING ÁLVAREZ null, [employer] 2 16:10:32 Dyspnea 865261798 Active 2020 Problem Code: R06.00; Problem Code Type: ICD-10; Not Available [facility] 21:02:23 Body mass index 20-24 - normal 252405511 Completed 202112/30/2021 KINGCATARINO SADLERNER [employer] 2 16:09:51 Hyperlip idemia 78583156 Active 2024 [employer] 5 13:47:02 Notes:*Problem Name: Other i njury of unspecified body region, initial encounter *Problem Status: Chronic *Comments: *Problem Code: T14.8XXA *Problem Code Type: ICD-10 *Note Date: 11/14/2020 Problem Notes None recorded. Procedures Surgical History Date Name Laterality Status Provider Name and Address Organization Details Recorded Time 12/31/19 22 MHI Packet completed [place], MYKEL [address] [place] [address], [phone], [employer] 12/30/2021 18:05:48 02/08/19 21 Most Recent Mammogram completed Carline [employer] 06/09/2022 14:03:43 10/19/19 18 thyroidectomy completed Not Available [facility] 10/14/2021 22:56:27 09/24/19 17 cholecystectomy completed Not Available [facility] 10/14/2021 22:56:27 09/24/19 17 hysterectomy completed Not Available [facility] 10/14/2021 22:56:28 Orthopedic Surgery completed KING SADLERNER [employer] 03/31/2022 16:31:59 excision of ganglion cyst completed Carline [employer] 11/06/2024 14:55:54 Imaging Results None recorded. Procedure Notes None recorded. Medical Equipment None Reported. Allergies Allergen ID Allergen Name Allergen Category Reaction Reaction Severity Criticality Documentation Date Start Date Code Code System Note Provider Name and Address Organization Details Recorded Time 00225 Product containin g penicilli n (product) medicatio n rash vomiting Not available Not available Not available 10/14/2021 23188 8001 SNOMED KING ruiz, [employer] 2 16:08:16 22069 codeine medicatio n Not available Not available Not available 03/31/2022 2670 RxNorm KING ruiz, [employer] 3 16:42:55 Medications Name Sig Start Date Stop Date Status Note LastModified by Organization Details LastModified Time losartan 50 mg tablet Take 1 tablet(s ) by mouth daily 10/18 completed Not Available Not Available Not Available furosemid e 40 mg tablet TAKE 1 TABLET BY MOUTH DAILY 11/03 completed cardio Not Available Not Available Not Available atorvasta tin 40 mg tablet TAKE 1 TABLET BY MOUTH EVERY DAY AT BEDTIME active Not Available Not Available No t Available carvedilo l 6.25 mg tablet TAKE 1 TABLET BY MOUTH TWICE DAILY WITH FOOD 12/30 completed Not Available Not Available Not Available gabapenti n 600 mg tablet TAKE 1 TABLET BY MOUTH TWICE DAILY active Not Available Not Available No t Available doxycycli ne hyclate 100 mg capsule Take 1 capsule twice a day by oral route. 11/03 completed Not Available Not Available Not Available carvedilo l 12.5 mg tablet Take 1 tablet twice a day by oral route for 30 days. 06/30 completed Not Available Not Available Not Available nicotine 14 mg/24 hr daily transderm al patch 11/06 completed Not Available Not Available Not Available ipratropi um 0.5 mg-albute rol 3 mg (2.5 mg base)/3 mL nebulizat ion soln Inhale 3 mL every 4-6 hours by nebuliza tion route as needed. 2024 active Not Available Not Available Not Avai lable Depo-Medr ol 40 mg/mL suspensio n for injection Take 1 mL by injectio n route. 06/30 completed Not Available Not Available Not Available torsemide 20 mg tablet TAKE ONE TABLET BY MOUTH EVERY DAY active cardio Not Available Not Available No t Available diphenhyd ramine 50 mg capsule 07/14 completed Not Available Not Available Not Available azithromy bridger 250 mg tablet TAKE TWO TABLETS BY MOUTH EVERY DAY FOR 2 DAYS 11/03 completed Not Available Not Available Not Available pravastat in 40 mg tablet Take 1 tablet(s ) by mouth at bedtime 11/15 completed Not Available Not Available Not Available ibuprofen 800 mg tablet one tablet po every 8 hours prn, start this after rox flowers naprosyn 12/30 completed Not Available Not Available Not Available tizanidin e 4 mg tablet Take 2 tablets twice a day by oral route. 07/14 completed Not Available Not Available Not Available fluconazo le 150 mg tablet take 1 tablet by mouth now then 1 in 3 days 10/01 completed Not Available Not Available Not Available amiodaron e 200 mg tablet TAKE ONE TABLET BY MOUTH TWICE DAILY active cardio Not Available Not Available No t Available citalopra m 10 mg tablet Take 1 tablet every day by oral route. 2024 active Not Available Not Available Not Avai lable ranitidin e 300 mg tablet take 1 tablet (300 mg) by oral route once daily at bedtime 06/19 completed Not Available Not Available Not Available albuterol sulfate 1.25 mg/3 mL solution for nebulizat ion Inhale 3 mL every 4-6 hours by inhalati on route as needed. 02/21 completed Not Available Not Available Not Available hydrocodo ne 5 mg-acetam inophen 325 mg tablet 05/22 completed Not Available Not Available Not Available dextromet horphan-g uaifenesi n 10 mg-100 mg/5 mL oral liquid Take 2 teaspoon by mouth q4h prn for cough 01/14 completed Not Available Not Available Not Available ondansetr on HCl 4 mg tablet 11/03 completed Not Available Not Available Not Available famotidin e 40 mg tablet TAKE 1 TABLET BY MOUTH TWICE DAILY active Not Available Not Available No t Available prednison e 20 mg tablet TAKE TWO TABLETS BY MOUTH EVERY DAY FOR 2 DAYS 05/22 completed Not Available Not Available Not Available metoprolo l succinate ER 100 mg tablet,ex tended release 24 hr TAKE ONE TABLET BY MOUTH TWICE DAILY active cardio Not Available Not Available No t Available clindamyc in HCl 150 mg capsule 10/01 completed Not Available Not Available Not Available Wellbutri n SR 150 mg tablet, 12 hr sustained -release Take 1 tablet(s ) by mouth bid 11/07 completed Not Available Not Available Not Available metronida zole 500 mg tablet 12/30 completed Not Available Not Available Not Available acetamino phen 300 mg-codein e 30 mg tablet TAKE 1 TABLET BY MOUTH EVERY 6 HOURS NEEDED PAIN 03/31 completed Not Available Not Available Not Available dextromet horphan-g uaifenesi n 10 mg-100 mg/5 mL oral syrup Take 1 teaspoon by mouth q4h prn for cough 11/09 completed Not Available Not Available Not Available amlodipin e 5 mg tablet TAKE 1 TABLET BY MOUTH ONCE DAILY 09/14 completed Not Available Not Available Not Available sulfameth oxazole 800 mg-trimet hoprim 160 mg tablet TAKE ONE TABLET BY MOUTH TWICE DAILY FOR 7 DAYS 08/04 completed Not Available Not Available Not Available hydrocodo ne 10 mg-acetam inophen 325 mg tablet 12/17 completed Not Available Not Available Not Available aspirin 81 mg tablet,de layed release Take 1 tablet every day by oral route for 90 days. active cardio Not Available Not Available No t Available spironola ctone 25 mg tablet Take 12 tablets every day by oral route. active cardio Not Available Not Available No t Available ketorolac 30 mg/mL (1 mL) injection solution Inject 1 mL every day by intramus cular route. 06/30 completed Not Available Not Available Not Available Medrol 4 mg tablet as directed 06/19 completed Not Available Not Available Not Available carvedilo l 3.125 mg tablet TAKE 1 TABLET BY MOUTH TWICE DAILY 12/30 completed Not Available Not Available Not Available ketorolac 10 mg tablet 11/03 completed Not Available Not Available Not Available bisoprolo l fumarate 5 mg tablet 10/01 completed cardio Not Available Not Available Not Available levothyro xine 100 mcg tablet Take 1 tablet(s ) by mouth daily 11/19 completed Not Available Not Available Not Available oxycodone -acetamin ophen 5 mg-325 mg tablet Take 1 tablet every 6 hours by oral route as needed for 3 days. active Not Available Not Available No t Available ceftriaxo ne 1 gram solution for injection Take 1 g by injectio n route. 06/30 completed Not Available Not Available Not Available citalopra m 20 mg tablet TAKE ONE TABLET BY MOUTH EVERY DAY 12/30 completed Not Available Not Available Not Available potassium chloride ER 20 mEq tablet,ex tended release(p art/cryst ) TAKE 1 TABLET BY MOUTH DAILY 12/30 completed Not Available Not Available Not Available pravastat in 80 mg tablet TAKE 1 TABLET BY MOUTH ONCE DAILY 12/30 completed cardio Not Available Not Available Not Available amitripty line 25 mg tablet Take 1 tablet every day by oral route at bedtime. 01/14 completed Not Available Not Available Not Available gabapenti n 800 mg tablet 1 tablet po qid 12/29 completed Not Available Not Available Not Available meclizine 25 mg tablet TAKE 1 TABLET BY MOUTH TWICE DAILY NEEDED active Not Available Not Available No t Available doxycycli ne monohydra te 100 mg capsule Take 1 capsule twice a day by oral route for 10 days. 05/22 completed Not Available Not Available Not Available levothyro xine 50 mcg tablet TAKE 1 TABLET BY MOUTH EVERY DAY active Not Available Not Available No t Available pantopraz ole 40 mg tablet,de layed release TAKE 1 TABLET BY MOUTH EVERY DAY active Not Available Not Available No t Available trazodone 150 mg tablet Take one tablet at bedtime 11/07 completed Not Available Not Available Not Available buspirone 30 mg tablet Take 1 tablet(s ) by mouth bid 12/29 completed Not Available Not Available Not Available levothyro xine 125 mcg tablet TAKE 1 TABLET BY MOUTH ONCE DAILY 12/30 completed Not Available Not Available Not Available ranitidin e 150 mg tablet 1 po bid 12/30 completed Not Available Not Available Not Available lidocaine 5 % topical patch Apply 1 patch topicall y every day for 12 hours them remove for 12 hours, then repeat active Not Available Not Available No t Available ibuprofen 400 mg tablet TAKE 1 TABLET BY MOUTH EVERY 6 HOURS NEEDED FOR PAIN 12/30 completed Not Available Not Available Not Available metoprolo l tartrate 50 mg tablet 07/14 completed cardio Not Available Not Available Not Available irbesarta n 75 mg tablet 11/03 completed cardio Not Available Not Available Not Available diclofena c sodium 75 mg tablet,de layed release TAKE 1 TABLET TWICE A DAY BY ORAL ROUTE NEEDED. 2024 active Not Available Not Available Not Avai lable mupirocin 2 % topical ointment APPLY A SMALL AMOUNT TO THE AFFECTED AREA BY TOPICAL ROUTE 3 TIMES PER DAY 11/03 completed Not Available Not Available Not Available digoxin 125 mcg (0.125 mg) tablet TAKE 1 TABLET BY MOUTH DAILY 11/03 completed cardio Not Available Not Available Not Available furosemid e 20 mg tablet one po q a.m. 11/03 completed Not Available Not Available Not Available mirtazapi ne 15 mg tablet Take 1 tablet every day by oral route. 07/14 completed Not Available Not Available Not Available metoprolo l succinate ER 25 mg tablet,ex tended release 24 hr 11/03 completed Not Available Not Available Not Available epinephri ne 0.3 mg/0.3 mL injection , auto-inje ctor active Not Available Not Available Not Available levofloxa bridger 500 mg tablet 11/15 completed Not Available Not Available Not Available oxycodone -acetamin ophen 7.5 mg-325 mg tablet 12/17 completed Not Available Not Available Not Available levofloxa bridger 750 mg tablet 03/31 completed Not Available Not Available Not Available methylpre dnisolone 4 mg tablets in a dose pack take by oral route as directed per package instruct ions 08/04 completed Not Available Not Available Not Available ketorolac 60 mg/2 mL intramusc ular solution Inject 1 mL every 6 hours by intramus cular route. 12/29 completed Not Available Not Available Not Available Naprosyn 500 mg tablet Take 1 tablet(s ) by mouth bid 01/15 completed Not Available Not Available Not Available ondansetr on 4 mg disintegr ating tablet Place 1 tablet every 4-6 hours by translin gual route. 05/22 completed Not Available Not Available Not Available cefdinir 300 mg capsule TAKE ONE CAPSULE BY MOUTH TWICE DAILY FOR 3 DAYS -- FINISH ALL MEDICINE -- 11/03 completed Not Available Not Available Not Available losartan 100 mg tablet TAKE 1 TABLET BY MOUTH DAILY 03/31 completed cardio Not Available Not Available Not Available lisinopri l 2.5 mg tablet 11/03 completed cardio Not Available Not Available Not Available doxycycli ne hyclate 100 mg tablet 05/22 completed Not Available Not Available Not Available Vistaril 50 mg capsule Take 1 capsule( s) by mouth qid 12/30 completed Not Available Not Available Not Available ceftriaxo ne 2 gram solution for injection 10/01 completed Not Available Not Available Not Available Ventolin HFA 90 mcg/actua tion aerosol inhaler Inhale 1 puff every 4 to hours by inhalati on route as needed. active Not Available Not Available No t Available meclizine 25 mg chewable tablet 11/06 completed Not Available Not Available Not Available buprenorp kip 8 mg-naloxo ne 2 mg sublingua l tablet DISSOLVE 2 TABLETS UNDER THE TONGUE ONCE DAILY 12/30 completed Not Available Not Available Not Available DILT-XR 240 mg capsule, extended release 11/03 completed Not Available Not Available Not Available duloxetin e 30 mg capsule,d elayed release TAKE 1 CAPSULE BY MOUTH EVERY DAY active Not Available Not Available No t Available tizanidin e 4 mg capsule one tablet once a day 02/18 completed Not Available Not Available Not Available [facility] Levothyro xine Sodium Take 1 capsule( s) by mouth daily before breakfas t. 10/18 completed Not Available Not Available Not Available Symbicort 160 mcg-4.5 mcg/actua tion HFA aerosol inhaler Inhale 2 puffs twice a day by inhalati on route. 11/06 completed pt is prescrib ed trelegy Not Available Not Available Not Available diclofena c 1 % topical gel Apply 2 g topicall y 4 times daily as directed active Not Available Not Available No t Available Xarelto 20 mg tablet TAKE 1 TABLET BY MOUTH EVERY DAY with SUPPER active Not Available Not Available No t Available Combivent Respimat 20 mcg-100 mcg/actua tion solution for inhalatio n 2 PUFFS EVERY 6 HOURS NEEDED 11/13 completed Not Available Not Available Not Available Eliquis 5 mg tablet 11/03 completed Not Available Not Available Not Available potassium chloride ER 20 mEq tablet,ex tended release take 1 tablet (20 meq) by oral route once daily with food 12/30 completed Not Available Not Available Not Available Jardiance 10 mg tablet active cardio Not Available Not Available Not Available Acne Medicatio n 5 % topical gel active Not Available Not Available Not Available Entresto 49 mg-51 mg tablet TAKE 1 TABLET BY MOUTH TWICE DAILY 06/30 completed cardio Not Available Not Available Not Available Entresto 24 mg-26 mg tablet 12/30 completed Not Available Not Available Not Available naloxone 4 mg/actuat ion nasal spray 12/17 completed Not Available Not Available Not Available fluticaso ne 232 mcg-salme terol 14 mcg/actua tion breath activated powdr inhale 1 puff by inhalati on route 2 times per day approxim ately 12 hours apart at the same time each day 12/30 completed Not Available Not Available Not Available Trelegy Ellipta 100 mcg-62.5 mcg-25 mcg powder for inhalatio n Inhale 1 puff every day by inhalati on route. active Not Available Not Available No t Available Fluzone Quad 60 mcg (15 mcg x 4)/0.5 mL intramusc ular susp. inject 0.5 millilit er (60 mcg) by intramus cular route once 06/19 completed Not Available Not Available Not Available Flowflex COVID-19 Antigen Home Test kit 12/30 completed Not Available Not Available Not Available Vitals Date Recorded Body height Body mass index (BMI) Body weight Heart rate Oxygen saturation Oxygen saturation in Arterial blood by Pulse oximetry Systolic And Diastolic Provider Name and Address Organization Details Last Updated DateTime 5 175.26 cm 23.5 kg/m2 91995.2 9 g 61 /min 88 % 88 % 97/60 mm[Hg] Carline Zimmerman [place] - [employer] 14:51:15 Social History Question Answer Notes LastModified by Organizat ion Details LastModified Time Tobacco Smoking Status Current Every Day Smoker [place] [facility] [employer] 12/30/2021 17:05:02 Do You Have An Advance Directive? No [email or web address] Information n ot available 12/30/2021 Is Your Home Air Conditioned? No [email or web address] Information not available 03/31/2022 Do You Wear A Helmet When Biking? No [email or web address] Information not available 03/31/2022 Are You Blind Or Do You Have Difficulty Seeing? No [email or web address] Information n ot available 12/30/2021 What Is Your Level Of Caffeine Consumption? Moderate Information not available 03/31/2022 In The 14 Days Before Symptom Onset, Have You Had Close Contact With A Laboratory-confirm ed COVID-19 While That Case Was Ill? No [email or web address] Information n ot available 03/31/2022 In The 14 Days Before Symptom Onset, Have You Had Close Contact With A Person Who Is Under Investigation For COVID-19 While That Person Was Ill? No [email or web address] Information not available 03/31/2022 Have You Been To An Area Known To Be High Risk For COVID-19? No [email or web address] Information not available 03/31/2022 Are You Deaf Or Do You Have Serious Difficulty Hearing? No [email or web address] Information not available 12/30/2021 What Type Of Diet Are You Following? REGULAR [email or web address] Information n ot available 12/30/2021 Have There Been Any Changes To Your Family Or Social Situation? No [email or web address] Information no t available 12/30/2021 Are There Any Guns Present In Your Home? No [email or web address] Information not available 03/31/2022 Which Of Your Hands Is Dominant? Right [email or web address] Information n ot available 03/31/2022 What Is Your Home Situation? Other [email or web address] Information not available 03/31/2022 Do You Have A Medical Power Of Harpsichord Maker? No Information not available 12/30/2021 What Was The Date Of Your Most Recent Tobacco Screening? 11/06/2024 Information not available 11/06/2024 What Is Your Current Pack Years? 30ormorepacky ears qlzlmlmy20 Information not available 12/30/2021 Do You Have Any Pets? Yes [email or web address] Information not available 12/30/2021 What Is Your Relationship Status? Single [email or web address] Information not available 12/30/2021 Have You Repeated Any Grades? No [email or web address] Information not available 03/31/2022 Do You Use Your Seat Belt Or Car Seat Routinely? Yes [email or web address] Information not available 03/31/2022 Do You Have Any Siblings? Yes 3 [email or web address] Information not available 03/31/2022 Do You Have Smoke And Carbon Monoxide Detectors In Your Home? Yes [email or web address] Information not available 03/31/2022 At What Age Did You Start Smoking Tobacco? 17 [email or web address] Information not available 03/31/2022 Are You Passively Exposed To Smoke? Yes [email or web address] Information no t available 12/30/2021 Are There Any Smokers In Your House? Yes Information not available 12/30/2021 How Much Tobacco Do You Smoke? 1 PPD [email or web address] Information not available 12/30/2021 Do You Use Sunscreen Routinely? No [email or web address] Information not available 12/30/2021 Has Tobacco Cessation Counseling Been Provided? Yes [email or web address] Information not available 12/30/2021 On What Date Was Tobacco Cessation Counseling Provided? 11/06/2024 Information not available 11/06/2024 How Many Years Have You Smoked Tobacco? 40 [email or web address] Information not available 03/31/2022 Have You Recently Traveled Abroad? No Information not available 12/30/2021 Do You Have Difficulty Walking Or Climbing Stairs? No [email or web address] Information not available 12/30/2021 Are You Currently In School? No [email or web address] Information not available 12/30/2021 Do You Have Any Dietary Restrictions? No [email or web address] Information not available 12/30/2021 Sex: Female Functional Status Question Answer Note LastModified by Organizat ion Details LastModified Time Do you or have you ever used any other forms of tobacco or nicotine? No smynear Information not available 04/12/2023 What is your level of alcohol consumption? None [email or web address] Information not available 12/30/2021 Are you currently employed? No [email or web address] Information not available 12/30/2021 Do you have transportation difficulties? No [email or web address] Information not available 12/30/2021 Are you able to walk independently without assistance or assistive devices? YESWOREST [email or web address] Information not available 12/30/2021 Do you have difficulty doing errands alone? No [email or web address] Information not available 12/30/2021 Are you able to care for yourself independently? Yes [email or web address] Information not available 12/30/2021 Do you have difficulty dressing, bathing, grooming, or toileting? No Information not available 12/30/2021 What is your exercise level? None [email or web address] Information not available 12/30/2021 Mental Status Question Answer Note LastModified by Organizat ion Details LastModified Time Do you feel stressed (tense, restless, nervous, or anxious, or unable to sleep at night)? [id number] [email or web address] Information not available 03/31/2022 Do you have difficulty concentrating, remembering or making decisions? No [email or web address] Information no t available 12/30/2021 Are you or have you been involved with bullying? No [email or web address] Information not available 03/31/2022 Family History Relationship Description Onset Age of this Age Resolved Age Notes LastModified by Organization Details LastModified Time Unspecified Relation Family history of breast cancer [email or web address] Not available 03/31 16:31:57 Unspecified Relation Family history of Cardiovascul ar disease Not available 03/12 16:31:57 Unspecified Relation Family history of alcoholism [email or web address] Not available 03/12 16:31:57 Unspecified Relation Family history of fibromyalgia [email or web address] Not available 16:31:57 Unspecified Relation Asthma Not available 2022 16:31:57 Unspecified Relation Depressive disorder [email or web address] Not available 03/31 16:31:57 Unspecified Relation Hypertensive disorder [email or web address] Not available 03/31 16:31:57 Medical History Condition Response COPD Y Acid Reflux (GERD) Y Hospitalizations N Asthma Y Emergency room visit since last appointm ent. N Hypothyroidism Y Hypertension Y Gynecological History Statement/Question Response Menses Monthly N HPV Vaccine N Date of Last Pap Smear Most Recent Mammogram 02/09/2020 Age at First Child 19 Obstetrics History GPAL:G 0 P 0 0 0 0 Immunizations Vaccine Type Date Status Note Provider Nam e and Address Organization Details Recorded Time COVID-19, mRNA, LNP-S, PF, 30 mcg/0.3 mL dose 1 completed Not Available [facility] 10/14/2021 23:39:49 COVID-19, mRNA, LNP-S, PF, 30 mcg/0.3 mL dose 1 completed Not Available [facility] 10/14/2021 23:39:49 Influenza, split virus, trivalent, preservative 9 completed Not Available [facility] 01/14/2023 08:52:20 Influenza, split virus, quadrivalent, preservative 5 completed KING PREETI null, [employer] 03/31/2022 16:35:05 Influenza, split virus, quadrivalent, preservative 9 completed Whispering GibbonNER null, [employer] 03/31/2022 16:35:05 Tdap 4 completed Whispering GibbonNER null, [employer] 03/31/2022 16:35:05 Influenza, split virus, trivalent, preservative 7 completed K[facility] PREETI null, [employer] 03/31/2022 16:35:05 Hib (PRP-OMP) 5 completed KING PREETI null, [employer] 03/31/2022 16:35:05 Meningococcal MCV4O 5 completed KING PREETI null, [employer] 03/31/2022 16:35:05 Past Encounters Encounter ID Performer Location Encounter Start Date Encounter Closed Date Diagnosis/Indication Diagnosis SNOMED-CT Code Diagnosis ICD10 Code Diagnosis IMO Codes Diagnosis Note [id number] Solange MYKEL Mills [facility] - [address] [address] 11/06/2024 14:38:57 11/06/2024 15:35:17 Mixed hyperlipidemia 640223895 E78.2 Dysthymia 36079326 F34.1 Low back pain 616695172 M54.50 Gastroesop hageal reflux disease without esophagitis 961821234 K21.9 Fibromyalgia 538395232 M 79.7 Chronic ob structive pulmonary disease 80381593 J44.9 Iodine-def iciency-rel ated multinodular endemic goiter 275545020 E01.1 Dizziness and giddiness 205898692 R42 Heart failure 13479426 I 50.9 Body mass index 20-24 - normal 805654960 Z68.23 [id number] Health Concerns Section Related Observation LastModified by Organization Detai ls LastModified Time None Recorded Concern Status LastModified by Organization Details LastModified Time None Recorded Payers Encounter Date Sequence Insurance Name Policy Number Policy Del Cid Covered Member ID Del Cid Member ID Guarantor Name 11/06/2024 1 [facility] (MEDICAID REPLACEMENT - HMO) Delia Buchanan [id number] Delia Buchanan Notes Date Note Type Note Provider Name and Address Organization Details Recorded Time 11/06/2024 text/html pt here today for medication refills. pt states shes doing well and has no new complaints today. pt states that when she had the infection in right wrist and had to have the 2nd sx for the clean out she hasnt been able to move her middle and ring finger since. she is going to see a hand specialist. Solange Mills APRN [address] [place], [address], [place] [facility] [email or web address] 11/06/2024 15:45:31 OBGyn Episode No OBEpisode recorded.
--- OUTSIDE RECORDS SUMMARY | 2024-12-16 10:39 | XMS_ITS | Clinical Summary ---
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 Name Role Phone Unavailable Primary Care Provider Unavailabl e Social History Tobacco Use Types Packs/Day Years Used Date Smoking Tobacco: Never Assessed Comments Unknown Sex and Gender Information Value Date Recorded Sex Assigned at Not on file Legal Sex Female 11:50 AM EST Gender Identity Not on file Sexual Orientation Not on file Plan of Treatment Health Maintenance Due Date Last Done Comments Annual Wellness Exam 1965 Hepatitis C Screening 1980 DTaP/TDaP/Td (1 - Tdap) 1981 Cologuard 12/28/2007 Colon Cancer Screening 12/28/2007 Colonoscopy 12/28/2007 FIT 12/28/2007 Sigmoidoscopy 12/28/2007 Virtual Colonography 12/28/2007 Pneumococcal Vaccine 50+ (1 of 1 - PCV) 2012 Zoster (1 of 2) 2012 COVID-19 Vaccine ( - 2024-2 6 season) 2024 Influenza Vaccine (#1) 2024 Hepatitis B Vaccine Aged Out No longe r eligible based on patient's age to complete this topic Meningococcal B Vaccine Aged Out No l onger eligible based on patient's age to complete this topic
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
--- OUTSIDE RECORDS SUMMARY | 2024-12-16 10:39 | XMS_ITS | Data Portability ---
Author Organization [facility] Address [address] [place] [address] Care Team Providers Care Loop Tacker Name Role Phone CLARIBELFREDERICK GUTIÉRREZ Palletiser Operator Assessment No assessment recorded. Plan of Treatment Reminders Order Date Submit Date Provider Last Modified By Organization Details Last Modified Time Details Appointments None recorded. Lab None recorded. Referral None recorded. Procedures None recorded. Surgeries None recorded. Imaging None recorded. Medication Orders meclizine 25 mg tablet 2024 025 [facility], [address] [place] [address], 13394, 17:53:05 atorvastati n 40 mg tablet 2024 025 [facility], [address] [place] [address], 74277, 17:53:07 gabapentin 600 mg tablet 2024 025 [facility], [address] [place] [address], 19210, 16:24:21 levothyroxi ne 50 mcg tablet 2024 025 [facility], [address] [place] [address], 43092, 13:06:29 diclofenac 1 % topical gel 2024 025 [facility], [address] [place] [address], 26328, 13:06:28 diclofenac sodium 75 mg tablet,monserrat yed release 2024 025 [facility], [address] [place] [address], 75929, 16:24:21 Lidoderm 5 % topical patch 2024 025 [facility], [address] [place] [address], 82588, 17:53:08 ipratropium 0.5 mg-albutero l 3 mg (2.5 mg base)/3 mL nebulizatio n soln 2024 025 [facility], [address] [place] [address], 88729, 15:52:52 Symbicort 160 mcg-4.5 mcg/actuati on HFA aerosol inhaler 2024 025 [facility], [address] [place] [address], 73671, 17:18:21 Trelegy Ellipta 100 mcg-62.5 mcg-25 mcg powder for inhalation 2024 025 [facility], [address] [place] [address], 60900, 12:35:47 Ventolin HFA 90 mcg/actuati on aerosol inhaler 2024 025 [facility], [address] [place] [address], 39388, 17:53:07 citalopram 10 mg tablet 2024 025 [facility], [address] [place] [address], 18559, 16:24:22 duloxetine 30 mg capsule,del ayed release 2024 025 [facility], [address] [place] [address], 65292, 13:06:30 Xarelto 20 mg tablet 2024 025 [facility], [address] [place] [address], 55841, 17:53:06 famotidine 40 mg tablet 2024 025 [facility], [address] [place] [address], 43116, 13:06:29 pantoprazol e 40 mg tablet,monserrat yed release 2024 025 [facility], [address] [place] [address], 56345, 13:06:28 meclizine 25 mg tablet 2024 025 [facility], [address] [place] [address], 05934, 13:38:51 atorvastati n 40 mg tablet 2024 025 [facility], [address] [place] [address], 28947, 17:21:28 gabapentin 600 mg tablet 2024 025 [facility], [address] [place] [address], 04678, 13:43:50 levothyroxi ne 50 mcg tablet 2024 025 [facility], [address] [place] [address], 06948, 14:54:13 diclofenac 1 % topical gel 2024 025 [facility], [address] [place] [address], 61172, 13:38:51 diclofenac sodium 75 mg tablet,monserrat yed release 2024 025 [facility], [address] [place] [address], 81017, 13:38:52 Lidoderm 5 % topical patch 2024 025 [facility], [address] [place] [address], 28080, 13:38:50 ipratropium 0.5 mg-albutero l 3 mg (2.5 mg base)/3 mL nebulizatio n soln 2024 025 [facility], [address] [place] [address], 46908, 13:43:50 Symbicort 160 mcg-4.5 mcg/actuati on HFA aerosol inhaler [address] [facility], [address] [place] [address], 72812, 5 15:51:17 Trelegy Ellipta 100 mcg-62.5 mcg-25 mcg powder for inhalation 2024 025 [facility], [address] [place] [address], 37566, 5 17:21:25 Ventolin HFA 90 mcg/actuati on aerosol inhaler 2024 025 [facility], [address] [place] [address], 08884, 14:26:54 citalopram 10 mg tablet 2024 025 [facility], [address] [place] [address], 18244, 17:21:24 duloxetine 30 mg capsule,del ayed release 2024 025 [facility], [address] [place] [address], 33519, 17:21:29 Xarelto 20 mg tablet 2024 025 [facility], [address] [place] [address], 93241, 14:54:12 famotidine 40 mg tablet 2024 025 [facility], [address] [place] [address], 44310, 17:21:26 pantoprazol e 40 mg tablet,monserrat yed release 2024 025 [facility], [address] [place] [address], 68828, 17:21:30 meclizine 25 [address] tablet [address] [facility], [address] [place], [address], 15:33:09 gabapentin 600 mg tablet 2024 025 [facility], [address] [place], [address], 17:00:24 levothyroxi ne 50 mcg tablet 2024 025 [facility], [address], [place], [address], 13:21:15 diclofenac 1 % topical gel 2024 [facility], [address], [place], [address], 13:21:12 diclofenac sodium 75 mg tablet,monserrat yed release 2024 [facility], [address], [place], [address], 15:33:10 Lidoderm 5 % topical patch 2024 [facility], [address], [place], [address], 13:53:38 ipratropium 0.5 mg-albutero l 3 mg (2.5 mg base)/3 mL nebulizatio n soln 2024 [facility], [address], [place], [address], 14:27:05 Symbicort 160 mcg-4.5 mcg/actuati on HFA aerosol inhaler 2024 [email or web address] [facility], [address], [place], [address], 15:51:17 Trelegy Ellipta 100 mcg-62.5 mcg-25 mcg powder for inhalation 2024 025 [facility], [address], [place], [address], 14:53:49 Ventolin HFA 90 mcg/actuati on aerosol inhaler 2024 025 [facility], [address], [place], [address], 15:33:22 citalopram 10 mg tablet 2024 025 [facility], [address], [place], [address], 5 13:21:14 duloxetine 30 mg capsule,del ayed release 2024 025 [facility], [address], [place], [address], 13:21:11 atorvastati n 40 mg tablet 2024 [facility], [address], [place], [address], 13:53:38 Xarelto 20 mg tablet 2024 025 [facility], [address], [place], [address], 13:53:34 famotidine 40 mg tablet 2024 025 [facility], [address], [place], [address], 13:21:14 pantoprazol e 40 mg tablet,monserrat yed release 2024 025 [facility], [address], [place], [address], 13:21:17 meclizine 25 mg tablet 2024 025 [facility], [address], [place], [address], 13:33:36 gabapentin 600 mg tablet 2024 025 [facility], [address], [place], [address], 5 14:13:43 doxycycline monohydrate 100 mg capsule 2024 [facility], [address], [place], [address], 5 14:01:46 levothyroxi ne 50 mcg tablet 2024 [facility], [address], [place], [address], 5 14:13:41 diclofenac 1 % topical gel 2024 [facility], [address], [place], [address], 5 17:39:19 diclofenac sodium 75 mg tablet,monserrat yed release 2024 [facility], [address], [place], [address], 5 13:33:31 Lidoderm 5 % topical patch 2024 [facility], [address], [place], [address], 5 14:13:40 ipratropium 0.5 mg-albutero l 3 mg (2.5 mg base)/3 mL nebulizatio n soln 2024 [facility], [address], [place], [address], 5 14:13:34 Symbicort 160 mcg-4.5 mcg/actuati on HFA aerosol inhaler 2024 esha [facility], [address], [place], [address], 5 15:51:17 Trelegy Ellipta 100 mcg-62.5 mcg-25 mcg powder for inhalation 2024 025 [facility], [address], [place], [address], 5 13:02:13 Ventolin HFA 90 mcg/actuati on aerosol inhaler 2024 025 [facility], [address], [place], [address], 5 13:53:42 citalopram 10 mg tablet 2024 025 [facility], [address], [place], [address], 5 14:13:38 duloxetine 30 mg capsule,del ayed release 2024 025 [facility], [address], [place], [address], 5 14:13:42 ondansetron 4 mg disintegrat ing tablet 2024 025 [facility], [address], [place], [address], 5 14:01:48 atorvastati n 40 mg tablet 2024 025 [facility], [address], [place], [address], 5 14:13:44 Xarelto 20 mg tablet 2024 025 [facility], [address], [place], [address], 5 15:34:46 famotidine 40 mg tablet 2024 025 [facility], [address], [place], [address], 14:13:33 pantoprazol e 40 mg tablet,monserrat yed release 2024 025 [facility], [address] , [place], [address], 14:13:35 Patient TargetsNo targets recorded. Patient Instructions Encounter Date Encounter Id Patient Instructions Last Modified By Organization Details Last Modified Time 05/22/2024 [id number] taking direct or al anticoagulants safely: care instructions [email or web address] Not available 05/22/2024 15:42:16 controlled substance agreement* [email or web address] Not available 05/22/2024 15:32:12 statins: care instructions [email or web address] Not available 05/22/2024 15:42:16 smoking cessatio n counseling, greater than 3 minutes up to 10 minutes* [email or web address] Not available 05/22/2024 15:32:12 Reason for Referral None Reported. Results Created Date Observation Date Name Description Value Unit Range Abnormal Flag Note LastModifiedBy Organization Detail LastModifiedTime 01/24/20 24 01/23/2024 elect rocar diogr am No observ ation record ed. [email or web address] [facility] [address], [place], [address], 01/31/2024 15:28:58 07/16/19 25 07/15/2024 XR, forea rm, 2 view No observ ation record ed. [address] (Radiology) [address], [place], [address], 07/17/2024 10:44:04 07/16/19 25 07/15/2024 XR, hand, 3 or more view No observ ation record ed. [address] (Radiology) [place], [address], 07/17/2024 10:43:37 Result Notes None recorded. Problems Name Problem SNOMED Code Status Onset Date Resolution Date Notes Provider Name and Address Organization Details Recorded Time Low back pain 570981931 Completed 201611/19/2016 Problem Code: M54.5; Problem Code Type: ICD-10; Not Available [facility] 21:02:22 Tension- type headache 228771425 Completed 201601/18/2017 Problem Code: G44.209; Problem Code Type: ICD-10; Not Available [facility] 21:02:20 Acute bronchit is 91151739 Completed 201601/18/2017 Problem Code: J20.8; Problem Code Type: ICD-10; Not Available [facility] 21:02:26 Pain of right shoulder joint 30823310917 717332 Completed 201601/18/2017 Problem Code: M25.511; Problem Code Type: ICD-10; KING ruiz [employer] 16:09:51 Psychoge radha headache 20656707 Completed 201601/18/2017 Problem Code: 307.81; Problem Code Type: ICD-9; Not Available [facility] 21:02:31 Shoulder joint pain 403282778 Completed 201601/18/2017 Problem Code: 719.41; Problem Code Type: ICD-9; Not Available [facility] 21:02:37 Hyperten sive disorder 16061198 Completed 201711/16/2017 Problem Code: I10; Problem Code Type: ICD-10; Not Available [facility] 21:02:21 Acute sinusiti s 03862209 Completed 201711/01/2017 Problem Code: J01.90; Problem Code Type: ICD-10; Not Available [facility] 21:02:21 Persiste nt asthma 38954994004 03 Active 2017 Problem Code: J45.41; Problem Code Type: ICD-10; Not Available [facility] 21:02:21 Low back pain 194018568 Completed 201707/16/2020 Problem Code: M54.5; Problem Code Type: ICD-10; Not Available [facility] 09/05/202 2 21:02:22 Right lower quadrant pain 081415436 Completed 201712/17/2017 Problem Code: R10.31; Problem Code Type: ICD-10; Not Available [facility] 2 21:02:23 Benign essentia l hyperten kevin 7316675 Active 2017 Problem Code: 401.1; Problem Code Type: ICD-9; Not Available [facility] 2 21:02:31 Left lower quadrant pain 632411857 Completed 201712/17/2017 Problem Code: R10.32; Problem Code Type: ICD-10; Not Available [facility] 2 21:02:32 Epigastr ic mass 165535991 Completed 201712/17/2017 Not Available [facility] 2 21:02:32 Periumbi lical pain 939609189 Completed 201712/17/2017 Problem Code: 789.05; Problem Code Type: ICD-9; Not Available [facility] 2 21:02:33 Extrinsi c asthma with asthma attack Completed 201707/16/2020 Problem Code: 493.02; Problem Code Type: ICD-9; Not Available [facility] 2 21:02:37 Abdomina l mass 449232583 Completed 201712/17/2017 Not Available [facility] 2 21:02:38 Pain of right hip joint 26566740251 9102 Completed 201701/19/2020 Problem Code: M25.551; Problem Code Type: ICD-10; KING ruiz [facility] 2 16:09:51 Polyalgi a 789334949 Completed 201711/23/2017 Problem Code: M79.89; Problem Code Type: ICD-10; Not Available [facility] 2 21:02:30 Pain of hip region 13431668 Completed 201707/16/2020 Problem Code: 719.45; Problem Code Type: ICD-9; Not Available [facility] 2 21:02:32 Swelling of limb 79685352 Completed 201711/23/2017 Problem Code: 729.81; Problem Code Type: ICD-9; Not Available [facility] 21:02:33 Benign cutaneou s vascular tumor Completed 201701/19/2020 Problem Code: D21.9; Problem Code Type: ICD-10; Not Available [facility] 21:02:20 Iodine deficien cy syndrome 871409430 Completed 201712/30/2021 Problem Code: E01.8; Problem Code Type: ICD-10; KING ruiz [employer] 16:09:51 Mixed hyperlip idemia 465159143 Active 2017 Problem Code: E78.2; Problem Code Type: ICD-10; Not Available [facility] 21:02:20 Gastroes ophageal reflux disease without esophagi tis 328029956 Active 2017 Not Available [facility] 21:02:28 Acquired hypothyr oidism 264302328 Completed 201707/16/2020 Problem Code: 244.8; Problem Code Type: ICD-9; Not Available [facility] 21:02:29 Benign neoplasm of soft tissue 24709278 Completed 201707/16/2020 Problem Code: 215.8; Problem Code Type: ICD-9; Not Available [facility] 21:02:30 Gastroes ophageal reflux disease 966574367 Completed 201707/16/2020 Problem Code: 530.81; Problem Code Type: ICD-9; Not Available [facility] 21:02:33 Fracture of fibula 66098947 Completed 201701/25/2018 Problem Code: S82.402A ; Problem Code Type: ICD-10; Not Available [facility] 21:02:24 Closed fracture of shaft of fibula 02850788 Completed 201701/25/2018 Problem Code: 823.21; Problem Code Type: ICD-9; Not Available [facility] 09/05/202 2 21:02:38 Chronic obstruct melanie pulmonar y disease 43054549 Active 2017 Problem Code: J44.9; Problem Code Type: ICD-10; Not Available [facility] 2 21:02:21 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 099641014 Active 2017 Problem Code: E01.1; Problem Code Type: ICD-10; Not Available [facility] 2 21:02:20 Chronic obstruct melanie pulmonar y disease with acute lower respirat ory infectio n 820874084 Completed 201701/19/2020 Problem Code: J44.0; Problem Code Type: ICD-10; Not Available [facility] 2 21:02:21 Goiter 7003030 Completed 201707/16/2020 Problem Code: 240.9; Problem Code Type: ICD-9; Not Available [facility] 2 21:02:28 Acute exacerba tion of chronic bronchit is 470896448 Completed 201707/16/2020 Not Available [facility] 2 21:02:37 Screenin g mammogra phy Completed 201703/25/2018 Problem Code: Z12.31; Problem Code Type: ICD-10; KING ruiz [employer] 2 16:09:51 Benign neoplasm of thyroid gland 71588207 Active 2018 Problem Code: D34; Problem Code Type: ICD-10; Not Available [facility] 2 21:02:20 Pain of right hip joint 19655282021 9102 Completed 201812/30/2021 Problem Code: M25.551; Problem Code Type: ICD-10; KING ruiz [employer] 2 16:09:51 Screenin g mammogra phy Completed 201801/19/2020 Problem Code: Z12.31; Problem Code Type: ICD-10; KING ruiz [employer] 2 16:09:51 Digestiv e system disease screenin g Completed 201801/19/2020 Problem Code: Z13.811; Problem Code Type: ICD-10; Not Available [facility] 21:02:26 Suprapub ic pain 110839905 Completed 201812/30/2021 KING ruiz, [employer] 2 16:09:51 Screenin g mammogra phy Completed 201812/30/2021 Problem Code: Z12.31; Problem Code Type: ICD-10; KING ÁLVAREZ null, [employer] 16:09:51 Generali zed hyperhid rosis 750180579 Completed 201812/30/2021 Problem Code: R61; Problem Code Type: ICD-10; KING SADLERNER null, [employer] 2 16:09:51 Menopaus e present 769570998 Active 2018 Problem Code: N95.1; Problem Code Type: ICD-10; KING ÁLVAREZ null, [employer] 2 16:10:21 Body mass index 25-29 - overweig ht 138783547 Completed 201807/16/2020 Problem Code: Z68.29; Problem Code Type: ICD-10; KING ÁLVAREZ null, [employer] 2 16:09:51 Tobacco user 742169531 Active 2018 Not Available [facility] 2 21:02:29 Screenin g mammogra phy Completed 201801/19/2020 Problem Code: Z12.31; Problem Code Type: ICD-10; KING ÁLVAREZ null, [employer] 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 16:09:51 Body mass index 30+ - obesity 703928601 Completed 201801/19/2020 Problem Code: Z68.30; Problem Code Type: ICD-10; Not Available [facility] 21:02:27 Current drug user 831288075 Completed 201801/19/2020 Problem Code: Z79.899; Problem Code Type: ICD-10; Not Available [facility] 21:02:29 [place] 430990195 Completed 201912/30/2021 Problem Code: R23.2; Problem Code Type: ICD-10; KING ÁLVAREZ [employer] 2 16:09:51 Pain of right wrist 70424886116 9100 Completed 201901/19/2020 Problem Code: M25.531; Problem Code Type: ICD-10; Not Available [facility] 21:02:21 Screenin g mammogra phy Completed 201901/19/2020 Problem Code: Z12.31; Problem Code Type: ICD-10; KING ruiz, [employer] 16:09:51 Fibromya lgia 591331008 Active 2019 Problem Code: M79.7; Problem Code Type: ICD-10; Not Available [facility] 21:02:22 General examinat ion of patient Completed 201912/30/2021 KINGCATARINO ÁLVAREZ [employer] 2 16:09:51 Ganglion of wrist 398183573 Completed 202012/30/2021 Problem Code: M67.431; Problem Code Type: ICD-10; KING ruiz, [employer] 16:09:51 Trochant sha bursitis of left hip 23668791857 9103 Completed 202007/16/2020 Not Available [facility] 21:02:22 Nicotine dependen ce 29896488 Active 2020 Problem Code: F17.200; Problem Code Type: ICD-10; Not Available [facility] 21:02:20 Body mass index 25-29 - overweig 802582866 Completed 202007/16/2020 Problem Code: Z68.26; Problem Code Type: ICD-10; KING ÁLVAREZ null, [employer] 16:09:51 Dizzines s and giddines s 655798147 Completed 202012/30/2021 Problem Code: R42; Problem Code Type: ICD-10; KING ÁLVAREZ null, [employer] 16:09:51 Body mass index 25-29 - overweig 261985583 Completed 202012/30/2021 Problem Code: Z68.26; Problem Code Type: ICD-10; KING ruiz, [employer] 16:09:51 Low back pain 206846148 Active 2020 Problem Code: M54.5; Problem Code Type: ICD-10; Not Available [facility] 21:02:21 Influenz a vaccine needed 40147835374 06 Completed 202010/10/2020 Problem Code: Z23; Problem Code Type: ICD-10; KING ruiz, [employer] 2 16:09:51 Pain of right shoulder joint 91608847327 369552 Completed 202012/30/2021 Problem Code: M25.511; Problem Code Type: ICD-10; KING ÁLVAREZ null, [employer] 2 16:09:51 Dizzines s and giddines s 253507197 Completed 202011/26/2020 Problem Code: R42; Problem Code Type: ICD-10; [employer] 2 16:09:51 Influenz a vaccine needed 19909021403 06 Completed 202012/30/2021 Problem Code: Z23; Problem Code Type: ICD-10; KING ruiz, [employer] 2 16:09:51 Tachycar oanh 1846533 Active 2020 [employer] 2 16:10:32 Dyspnea 946018264 Active 2020 Problem Code: R06.00; Problem Code Type: ICD-10; Not Available [facility] 21:02:23 Body mass index 20-24 - normal 699640916 Completed 202112/30/2021 [employer] 2 16:09:51 Hyperlip idemia 08848005 Active 2024 Idania Sedona [employer] 5 13:47:02 Notes:*Problem Name: Other i njury of unspecified body region, initial encounter *Problem Status: Chronic *Comments: *Problem Code: T14.8XXA *Problem Code Type: ICD-10 *Note Date: 11/14/2020 Problem Notes None recorded. Procedures Surgical History Date Name Laterality Status Provider Name and Address Organization Details Recorded Time 12/31/19 22 MHI Packet completed [place], MYKEL [address] [place] [address], [place], [address], [employer] 12/30/2021 18:05:48 02/08/19 21 Most Recent Mammogram completed Idania Zimmerman [employer] 06/09/2022 14:03:43 10/19/19 18 thyroidectomy completed Not Available [facility] 10/14/2021 22:56:27 09/24/19 17 cholecystectomy completed Not Available [facility] 10/14/2021 22:56:27 09/24/19 17 hysterectomy completed Not Available [facility] 10/14/2021 22:56:28 Orthopedic Surgery completed KING ÁLVAREZ [employer] 03/31/2022 16:31:59 excision of ganglion cyst completed Idania Zimmerman [facility] 11/06/2024 14:55:54 Imaging Results None recorded. Procedure Notes None recorded. Medical Equipment None Reported. Allergies Allergen ID Allergen Name Allergen Category Reaction Reaction Severity Criticality Documentation Date Start Date Code Code System Note Provider Name and Address Organization Details Recorded Time 98029 Product containin g penicilli n (product) medicatio n rash vomiting Not available Not available Not available 10/14/2021 14308 8001 SNOMED [employer] 2 16:08:16 97370 codeine medicatio n Not available Not available Not available 03/31/2022 2670 RxNorm [employer]. 3 16:42:55 Medications Name Sig Start Date [...] every 8 hours prn, start this after finsijanny g the naprosyn 12/30 completed Not Available Not Available [...] height Body mass index (BMI) Body weight Oxygen saturation Oxygen saturation in Arterial blood by Pulse oximetry Heart rate Body temperature Systolic And Diastolic Provider Name and Address Organization Details Last Updated DateTime 5 175.26 cm 24.1 kg/m2 85353.3 6 g 91 % 91 % 61 /min 97.5 [degF] 149/88 mm[Hg] Dedra Hoang [employer] 5 13:10:44 Date Recorded Body height Body mass index (BMI) Body weight Heart rate Oxygen saturation Oxygen saturation in Arterial blood by Pulse oximetry Systolic And Diastolic Provider Name and Address Organization Details Last Updated DateTime 5 175.26 cm 24.4 kg/m2 05142.1 4 g 90 /min 88 % 88 % 123/57 mm[Hg] Idania [facility]. 5 13:59:01 Date Recorded Body height Body mass index (BMI) Body weight Heart rate Oxygen saturation Oxygen saturation in Arterial blood by Pulse oximetry Oxygen saturation Oxygen saturation in Arterial blood by Pulse oximetry Systolic And Diastolic Systolic And Diastolic Provider Name and Address Organization Details Last Updated DateTime 5 175.26 cm 23.5 kg/m2 85061.6 2 g 57 /min 88 % 88 % 73 % 73 % 141/82 mm[Hg] 119/80 mm[Hg] Josette Mei [employer] 5 11:07:51 Date Recorded Body height Body mass index (BMI) Body weight Heart rate Oxygen saturation Oxygen saturation in Arterial blood by Pulse oximetry Systolic And Diastolic Provider Name and Address Organization Details Last Updated DateTime 5 175.26 cm 23.5 kg/m2 23028.2 9 g 61 /min 88 % 88 % 97/60 mm[Hg] Idania Zimmerman [employer] 5 14:51:15 Date Recorded Body height Body mass index (BMI) Body weight Heart rate Oxygen saturation Oxygen saturation in Arterial blood by Pulse oximetry Systolic And Diastolic Provider Name and Address Organization Details Last Updated DateTime 4 175.26 cm 23.4 kg/m2 50525.9 9 g 65 /min 91 % 91 % 134/87 mm[Hg] Idania Beattylly [facility] [employer] 4 14:45:18 Social History Question Answer Notes LastModified by Organizat ion Details LastModified Time Tobacco Smoking Status Current Every Day Smoker KING SADLERJANELL ruiz [facility]. 12/30/2021 17:05:02 Do You Have An Advance Directive? No [email or web address] Information n ot available 12/30/2021 Is Your Home Air Conditioned? No [email or web address] Information not available 03/31/2022 Do You Wear A Helmet When Biking? No [email or web address] Information not available 03/31/2022 Are You Blind Or Do You Have Difficulty Seeing? No [email or web address] Information n ot available 12/30/2021 What Is Your Level Of Caffeine Consumption? Moderate [email or web address] Information not available 03/31/2022 In The 14 Days Before Symptom Onset, Have You Had Close Contact With A Laboratory-confirm ed COVID-19 While That Case Was Ill? No [email or web address] Information n ot available 03/31/2022 In The 14 Days Before Symptom Onset, Have You Had Close Contact With A Person Who Is Under Investigation For COVID-19 While That Person Was Ill? No [email or web address] Information not available 03/31/2022 Have You Been To An Area Known To Be High Risk For COVID-19? No [email or web address] Information not available 03/31/2022 Are You Deaf Or Do You Have Serious Difficulty Hearing? No [email or web address] Information not available 12/30/2021 What Type Of Diet Are You Following? REGULAR [email or web address] Information n ot available 12/30/2021 Have There Been Any Changes To Your Family Or Social Situation? No Information no t available 12/30/2021 Are There Any Guns Present In Your Home? No [email or web address] Information not available 03/31/2022 Which Of Your Hands Is Dominant? Right [email or web address] Information n ot available 03/31/2022 What Is Your Home Situation? Other ickzmgjf36 Information not available 03/31/2022 Do You Have A Medical Power Of Food Manager? No [email or web address] Information not available 12/30/2021 What Was The Date Of Your Most Recent Tobacco Screening? 11/06/2024 Information not available 11/06/2024 What Is Your Current Pack Years? 30ormorepacky ears Information not available 12/30/2021 Do You Have Any Pets? Yes [email or web address] Information not available 12/30/2021 What Is Your Relationship Status? Single Information not available 12/30/2021 Have You Repeated Any Grades? No [email or web address] Information not available 03/31/2022 Do You Use Your Seat Belt Or Car Seat Routinely? Yes infbrvsl54 Information not available 03/31/2022 Do You Have Any Siblings? Yes 3 [email or web address] Information not available 03/31/2022 Do You Have Smoke And Carbon Monoxide Detectors In Your Home? Yes [email or web address] Information not available 03/31/2022 At What Age Did You Start Smoking Tobacco? 17 Information not available 03/31/2022 Are You Passively Exposed To Smoke? Yes [email or web address] Information no t available 12/30/2021 Are There Any Smokers In Your House? Yes [email or web address] Information not available 12/30/2021 How Much Tobacco Do You Smoke? 1 PPD yzuaivuo41 Information not available 12/30/2021 Do You Use Sunscreen Routinely? No [email or web address] Information not available 12/30/2021 Has Tobacco Cessation Counseling Been Provided? Yes sbxjtbfi74 Information not available 12/30/2021 On What Date Was Tobacco Cessation Counseling Provided? 11/06/2024 Information not available 11/06/2024 How Many Years Have You Smoked Tobacco? 40 [email or web address] Information not available 03/31/2022 Have You Recently Traveled Abroad? No [email or web address] Information not available 12/30/2021 Do You Have Difficulty Walking Or Climbing Stairs? No [email or web address] Information not available 12/30/2021 Are You Currently In School? No [email or web address] Information not available 12/30/2021 Do You Have Any Dietary Restrictions? No zjcsrabi93 Information not available 12/30/2021 Sex: Female Functional Status Question Answer Note LastModified by Organizat ion Details LastModified Time Do you or have you ever used any other forms of tobacco or nicotine? No smynear Information not available 04/12/2023 What is your level of alcohol consumption? None [email or web address] Information not available 12/30/2021 Are you currently employed? No [email or web address] Information not available 12/30/2021 Do you have transportation difficulties? No [email or web address] Information not available 12/30/2021 Are you able to walk independently without assistance or assistive devices? YESWOREST vjtoiztd56 Information not available 12/30/2021 Do you have difficulty doing errands alone? No gkliaajn80 Information not available 12/30/2021 Are you able to care for yourself independently? Yes lvbujnze48 Information not available 12/30/2021 Do you have difficulty dressing, bathing, grooming, or toileting? No [email or web address] Information not available 12/30/2021 What is your exercise level? None [email or web address] Information not available 12/30/2021 Mental Status Question Answer Note LastModified by Organizat ion Details LastModified Time Do you feel stressed (tense, restless, nervous, or anxious, or unable to sleep at night)? [id number] [email or web address] Information not available 03/31/2022 Do you have difficulty concentrating, remembering or making decisions? No [email or web address] Information no t available 12/30/2021 Are you or have you been involved with bullying? No nnemlpge23 Information not available 03/31/2022 Family History Relationship Description Onset Age of this Age Resolved Age Notes LastModified by Organization Details LastModified Time Unspecified Relation Family history of breast cancer [email or web address] Not available 03/31 16:31:57 Unspecified Relation Family history of Cardiovascul ar disease Not available 03/12 16:31:57 Unspecified Relation Family history of alcoholism [email or web address] Not available 03/12 16:31:57 Unspecified Relation Family history of fibromyalgia vppiridy11 Not available 16:31:57 Unspecified Relation Asthma auvhlhok47 Not available 2022 16:31:57 Unspecified Relation Depressive disorder ksxezumh82 Not available 03/31 16:31:57 Unspecified Relation Hypertensive disorder [email or web address] Not available 03/31 16:31:57 Medical History Condition Response Hospitalizations N Acid Reflux (GERD) Y Emergency room visit since last appointm ent. N Hypertension Y COPD Y Asthma Y Hypothyroidism Y Gynecological History Statement/Question Response Menses Monthly N HPV Vaccine N Date of Last Pap Smear Most Recent Mammogram 02/09/2020 Age at First Child 19 Obstetrics History GPAL:G 0 P 0 0 0 0 Immunizations Vaccine Type Date Status Note Provider Nam e and Address Organization Details Recorded Time COVID-19, mRNA, LNP-S, PF, 30 mcg/0.3 mL dose 1 completed Not Available [facility] 10/14/2021 23:39:49 COVID-19, mRNA, LNP-S, PF, 30 mcg/0.3 mL dose 1 completed Not Available [facility] 10/14/2021 23:39:49 Influenza, split virus, trivalent, preservative 9 completed Not Available [facility] 01/14/2023 08:52:20 Influenza, split virus, quadrivalent, preservative 5 completed KING ÁLVAREZ null, [facility] [employer] 03/31/2022 16:35:05 Influenza, split virus, quadrivalent, preservative 9 completed KING ÁLVAREZ null, [facility] [employer] 03/31/2022 16:35:05 Tdap 4 completed KING ÁLVAREZ null, [facility] [employer] 03/31/2022 16:35:05 Influenza, split virus, trivalent, preservative 7 completed KING ÁLVAREZ null, [facility] [employer] 03/31/2022 16:35:05 Hib (PRP-OMP) 5 completed [facility] 03/31/2022 16:35:05 Meningococcal MCV4O 5 completed KINGCATARINO ruiz [facility] 03/31/2022 16:35:05 Past Encounters Encounter ID Performer Location Encounter Start Date Encounter Closed Date Diagnosis/Indication Diagnosis SNOMED-CT Code Diagnosis ICD10 Code Diagnosis IMO Codes Diagnosis Note [id number] [place] [address] 12/30/2021 16:32:54 12/30/2021 17:49:54 Benign essential hypertension 3704229 I10 Chronic ob structive pulmonary disease 24337275 J44.9 Fibromyalgia 964270274 M 79.7 Gastroesop hageal reflux disease without esophagitis 086878219 K21.9 Low back pain 198074875 M54.50 Mixed hyperlipidemia 267 151444 E78.2 Nicotine dependence 5629 4008 F17.200 Dizziness and giddiness 019994829 R42 Dysthymia 15233352 F34.1 Iodine-def iciency-rel ated multinodular endemic goiter 650107634 E01.1 Body mass index 20-24 - normal 162701248 Z68.22 [id number] [place] [address] 03/31/2022 16:09:02 03/31/2022 17:04:10 Dysthymia 51800673 F34.1 Low back pain 383032368 M54.50 Gastroesop hageal reflux disease without esophagitis 424030086 K21.9 Fibromyalgia 647059365 M 79.7 Iodine-def iciency-rel ated multinodular endemic goiter 670659772 E01.1 Dizziness and giddiness 425466966 R42 Chronic ob structive pulmonary disease 61683621 J44.9 Mixed hyperlipidemia 267 713035 E78.2 Heart failure 44664708 I 50.9 Body mass index 20-24 - normal 555344404 Z68.22 [id number] [place] 04/09/2022 15:50:25 04/09/2022 16:24:59 Perforation of tympanic membrane 21577126 H72.90 Body mass index 20-24 - normal 382283769 Z68.22 [id number] [place] [address] 06/09/2022 13:49:27 06/09/2022 15:18:57 Insect bite - wound 871690566 T14.8XXA Edema 531612030 R60.9 [id number] [place] [address] 0 06/30/2022 14:03:13 06/30/2022 15:37:14 Chronic obstructive pulmonary disease 46476255 J44.9 Dysthymia 59909990 F34.1 Mixed hyperlipidemia 267 417722 E78.2 Low back pain 717274242 M54.50 Gastroesop hageal reflux disease without esophagitis 083309674 K21.9 Fibromyalgia 975503726 M 79.7 Iodine-def iciency-rel ated multinodular endemic goiter 047371564 E01.1 Dizziness and giddiness 437701766 R42 Heart failure 05570120 I 50.9 Body mass index 20-24 - normal 376182145 Z68.22 [id number] [place] [address] 10/01/2022 10:58:47 10/01/2022 11:22:53 Chronic obstructive pulmonary disease 64233986 J44.9 Dysthymia 21818955 F34.1 Mixed hyperlipidemia 267 970188 E78.2 Low back pain 387842717 M54.50 Gastroesop hageal reflux disease without esophagitis 161734135 K21.9 Fibromyalgia 755865314 M 79.7 Iodine-def iciency-rel ated multinodular endemic goiter 306624183 E01.1 Dizziness and giddiness 943097039 R42 Heart failure 28256507 I 50.9 [id number] [place] [address] 12/17/2022 13:57:06 12/17/2022 15:07:07 Respiratory tract congestion and cough 190740972 R05.9 Jaw pain 208704189 R68.8 4 COVID-19 391382764 U07.1 Influenza caused by Influenza B virus 95104686 J10.1 Body mass index 20-24 - normal 535975416 Z68.22 [id number] [place] [address] 01/14/2023 08:52:13 01/14/2023 12:50:40 Chronic obstructive pulmonary disease 48627588 J44.9 Mixed hyperlipidemia 267 792352 E78.2 Dysthymia 21823651 F34.1 Low back pain 203041785 M54.50 Gastroesop hageal reflux disease without esophagitis 948563459 K21.9 Fibromyalgia 957202980 M 79.7 Iodine-def iciency-rel ated multinodular endemic goiter 392088396 E01.1 Dizziness and giddiness 949705298 R42 Body mass index 20-24 - normal 768355025 Z68.22 [id number] [place] [address] 04/12/2023 13:25:56 04/12/2023 14:24:51 Fatigue 36083605 R53.83 Hyperlipidemia 83308482 E78.5 Long-term drug therapy 586855703 Z79.899 Vitamin D deficiency 347 93225 E55.9 Acute sinusitis 03988787 J01.90 Chronic ob structive pulmonary disease 84424256 J44.9 Mixed hyperlipidemia 267 184662 E78.2 Dysthymia 16396184 F34.1 Low back pain 766346093 M54.50 Gastroesop hageal reflux disease without esophagitis 492763567 K21.9 Fibromyalgia 412711732 M 79.7 Iodine-def iciency-rel ated multinodular endemic goiter 755394782 E01.1 Dizziness and giddiness 140493219 R42 Bradycardia 87930460 R00 .1 advised pt to call cardiologi st when she leaves here Body mass index 20-24 - normal 780206502 Z68.22 [id number] [place] [address] 07/15/2023 15:32:08 07/15/2023 16:18:10 Long-term current use of drug therapy 671789246 Z79.899 Acute exac erbation of chronic obstructive pulmonary disease 693053567 J44.1 Chronic ob structive pulmonary disease 41659324 J44.9 Mixed hyperlipidemia 267 006367 E78.2 Dysthymia 21078728 F34.1 Low back pain 055951257 M54.50 Gastroesop hageal reflux disease without esophagitis 779713303 K21.9 Iodine-def iciency-rel ated multinodular endemic goiter 490043591 E01.1 Dizziness and giddiness 462576097 R42 Lower resp iratory tract infection 17738484 J22 Acute resp iratory distress 081820876 R06.03 Tachycardia 4233838 R00. 0 Noncomplia nce with treatment 0849399 Z91.199 Nausea 481635353 R11.0 Body mass index 20-24 - normal 789376898 Z68.22 [id number] [place] [address] 11/04/2023 13:34:19 11/04/2023 14:41:05 Screening for malignant neoplasm of breast 160976816 Z12.39 Gastroesop hageal reflux disease without esophagitis 827675625 K21.9 Low back pain 509441336 M54.50 Chronic ob structive pulmonary disease 92336656 J44.9 Mixed hyperlipidemia 267 582838 E78.2 Dysthymia 92731885 F34.1 Fibromyalgia 311985994 M 79.7 Iodine-def iciency-rel ated multinodular endemic goiter 216086681 E01.1 Dizziness and giddiness 489497838 R42 Nausea 443454363 R11.0 Heart failure 12486364 I 50.9 Body mass index 20-24 - normal 584848053 Z68.22 [id number] [place] [address] 11/09/2023 11:55:17 11/09/2023 12:15:27 Low back pain 653225015 M54.50 Ketorolac was ordered at last visit, patient left without getting. Brooke told her to come in for nurse visit and we could give it to her. [id number] [place] [address] 12/30/2023 14:35:50 12/30/2023 15:05:48 Urinary incontinence 472541624 R32 Body mass index 20-24 - normal 665431615 Z68.22 [id number] [place] [address] 02/22/2024 12:56:51 02/22/2024 13:50:07 Chronic obstructive pulmonary disease 36541443 J44.9 Mixed hyperlipidemia 267 852667 E78.2 Dysthymia 60241094 F34.1 Low back pain 201855233 M54.50 Gastroesop hageal reflux disease without esophagitis 820614948 K21.9 Fibromyalgia 046360252 M 79.7 Iodine-def iciency-rel ated multinodular endemic goiter 296285752 E01.1 Dizziness and giddiness 163562164 R42 Nausea 118337271 R11.0 Heart failure 48394049 I 50.9 Lower resp iratory tract infection 44348703 J22 Body mass index 20-24 - normal 066223270 Z68.22 [id number] [place] [address] 05/22/2024 13:39:08 05/22/2024 14:21:28 Long-term drug therapy 653084980 Z79.899 Hyperlipidemia 72329724 E78.5 Anticoagulant therapy 18 3295077 Z79.01 Nicotine dependence 5629 4008 F17.200 Mixed hyperlipidemia 267 248157 E78.2 Dysthymia 34677300 F34.1 Low back pain 230563698 M54.50 Gastroesop hageal reflux disease without esophagitis 592054972 K21.9 Fibromyalgia 427836403 M 79.7 Chronic ob structive pulmonary disease 08901920 J44.9 Iodine-def iciency-rel ated multinodular endemic goiter 819937697 E01.1 Dizziness and giddiness 152378387 R42 Heart failure 92921032 I 50.9 Body mass index 20-24 - normal 385842774 Z68.22 [id number] [place] [address] 08/04/2024 10:52:08 08/04/2024 11:44:42 Mixed hyperlipidemia 224612796 E78.2 Dysthymia 94531689 F34.1 Low back pain 358701091 M54.50 Gastroesop hageal reflux disease without esophagitis 277236436 K21.9 Fibromyalgia 784028220 M 79.7 Chronic ob structive pulmonary disease 63553323 J44.9 Iodine-def iciency-rel ated multinodular endemic goiter 535644229 E01.1 Dizziness and giddiness 172421765 R42 Heart failure 49416540 I 50.9 Body mass index 20-24 - normal 110485909 Z68.23 12889462 Infection of skin 366216 000 L08.9 59804 [id number] [place] [id number] 11/06/2024 14:38:57 11/06/2024 15:35:17 Mixed hyperlipidemia 895096869 E78.2 Dysthymia 18948107 F34.1 Low back pain 809519433 M54.50 Gastroesop hageal reflux disease without esophagitis 628808041 K21.9 Fibromyalgia 472576118 M 79.7 Chronic ob structive pulmonary disease 31969387 J44.9 Iodine-def iciency-rel ated multinodular endemic goiter 233978739 E01.1 Dizziness and giddiness 360726022 R42 Heart failure 10521605 I 50.9 Body mass index 20-24 - normal 855785739 Z68.23 78726131 Health Concerns Section Related Observation LastModified by Organization Detai ls LastModified Time None Recorded Concern Status LastModified by Organization Details LastModified Time None Recorded Advance Directives Directive N: Payers Insurance Date Sequence Insurance Name Policy Number Policy Del Cid Covered Member ID Del Cid Member ID Guarantor Name 08/05/2022 1 UNSPECIFIED REMIT PAYOR Delia Buchanan 12/07/2024 MEDICAID-[facility] WRAP BILLING (MEDICAID) Delia Buchanan [id number] Delia Buchanan 11/15/2021 1 *SELF PAY* Cy barbie Buchanan 12/07/2024 1 [employer] - [place] (MEDICAID REPLACEMENT - HMO) Delia Buchanan [id number] Delia Buchanan Notes Date Note Type Note Provider Name and Address Organization Details Recorded Time 12/30/2023 text/html pt here today for a f/u for incontinence supplies. pt states that she has been wearing incontinence briefs for around a year. pt states that she thought she told me but she may have told dr. solares her obgyn. states that sometimes she may go all day and be fine and then other times she may have to go right now so she just wears a pad. they are getting expensive and her friend told her about [facility]. [place] APRN [address] [place], [address], [employer] 12/30/2023 15:08:54 02/22/2024 text/html pt here today for medication refills. pt states shes doing well on current medication regime. pt is here also for a copd ex. states that she feels some better but instead of green sputum she was coughing now it is yellow. pt does have a strong cough and pt lungs with rhonchi in lower lobes. pt continues to smoke. i will order abx. [place] APRN [address] [facility], [place], [address], [employer] 02/22/2024 18:43:10 05/22/2024 text/html 63 year old female presents for chronic disease f/u. States she is doing well on current medications without AE. Last saw cars in april. They decrease amiodarone to daily and said to f/u in 6 m. She also went to eye md last wk for glasses. States she has been more SOA over the past week after having a cold. States she used her inh and nebs with sx improvement. She still has a productive cough but is feeling better. Lungs with more movement. Since improving, will advise to return for worsening symptoms. Will refill medications today. Also advised her to ask insurance co for scale at home to monitor for worsening HF signs. She does mention being more swollen in hands/feet but has continued taking fluid meds. only a 2 lb wt gain in 3 months. Educated her on s/s of worsening and pt agrees. pt needs to continue home O2. [place] APRN [address] [place], [address], [employer] 07/13/2024 13:28:45 08/04/2024 text/html pt here today for medication refills and to recheck right hand. pt states shes doing well on current medication regime and has no new complaints today. pt states that she had a ganglion cyst removed from right wrist, it got infected and required an abx and it didnt help and had to go to ER and had to have it cleaned out which required a hospital stay. changed dsg today. pt has a small open wound (fell in shower on a sat, stitches came out and didnt go back to ER until tues so they couldnt stitch it back up), with small amount of drainage to dsg. idania cleaned wound and changed dsg. [place] APRN [address] [place], [address], [employer] 08/04/2024 12:56:21 11/06/2024 text/html pt here today for medication [...] a hand specialist. [place] APRN [address] [place], [address], [employer] 11/06/2024 15:45:31 OBGyn Episode No OBEpisode recorded.
--- OUTSIDE RECORDS SUMMARY | 2024-12-16 10:39 | XMS_ITS | Clinical Summary ---
Author Organization [facility] Address [address] [place] [address] Care Team Providers Care Locum Tenens Name Role Phone Dahiana Ram APRN Primary Care Provider [phone] Allergies Active Allergy Reactions Criticality Noted Date Comments Acetaminophen GI Intolerance Medium 08/05/2022 UPSET STOMACH Amoxicillin Rash,GI Intolerance Low 10/09/2022 Codeine Confusion Low 03/17/2022 Penicillins Rash Low 03/17/2022 Medications albuterol (ACCUNEB) 1.25 MG/3ML nebulizer solution 3 mL Every 6 (Six) Hours As Needed for Wheezing or Shortness of Air. 2 Active Ventolin HFA 108 (90 Base) MCG/ACT inhaler Inhale 2 puffs Every 4 (Four) Hours As Needed for Wheezing or Shortness of Air. 2 Active Aspirin Low Dose 81 MG EC tablet Take 1 tablet by mouth Daily. 3 Active atorvastatin (LIPITOR) 40 MG tablet Take 1 tablet by mouth Every Night. 3 Active Symbicort 160-4.5 MCG/ACT inhaler Inhale 2 puffs 2 (Two) Times a Day. 2 Active citalopram (CeleXA) 10 MG tablet Take 1 tablet by mouth Daily. 2 Active DULoxetine (CYMBALTA) 30 MG capsule Take 1 capsule by mouth Daily. 2 Active famotidine (PEPCID) 40 MG tablet Take 1 tablet by mouth 2 (Two) Times a Day. 2 Active furosemide (LASIX) 20 MG tablet Take 1 tablet by mouth Daily. 2 Active gabapentin (NEURONTIN) 600 MG tablet Take 1 tablet by mouth Daily. 3 Active levothyroxine (SYNTHROID, LEVOTHROID) 50 MCG tablet Take 1 tablet by mouth Daily. 2 Active pantoprazole (PROTONIX) 40 MG EC tablet Take 1 tablet by mouth Daily. 2 Active irbesartan (AVAPRO) 75 MG tablet Take 1 tablet by mouth Daily. 3 Active dilTIAZem CD (CARDIZEM CD) 240 MG 24 hr capsule Take 1 capsule by mouth 2 (Two) Times a Day. Active naloxone (NARCAN) 4 MG/0.1ML nasal spray Call 911. Don't prime. Cameron in 1 nostril for overdose. Repeat in 2-3 minutes in other nostril if no or minimal breathing/respo nsiveness. 2 each 08/08/2022 4:02 PM EDT 3 Active diclofenac (VOLTAREN) 75 MG EC tablet Take 1 tablet by mouth 2 (Two) Times a Day. 3 Active traZODone (DESYREL) 150 MG tablet As Needed. Active apixaban (ELIQUIS) 5 MG tablet tablet Take 1 tablet by mouth 2 (Two) Times a Day. HOLD 48 HOURS PRIOR TO SURGERY 60 tablet 3 Active ropivacaine (NAROPIN) 0.2 % infusion (INFUSYSTEM) 2 mg/hr by Peripheral Nerve route Continuous. 3 Active doxycycline (VIBRAMYCIN) 100 MG capsuleIndicatio ns:Rotator cuff tear arthropathy of right shoulder,S/P shoulder surgery Take 1 capsule by mouth 2 (Two) Times a Day. 20 capsule 3 Active Active Problems Problem Noted Date Diagnosed Date Atrial flutter 08/23/2023 HFrEF (heart failure with reduced ejection fract ion) 08/23/2023 Arthritis of shoulder region, right 10/07/2022 S/P reverse total shoulder arthroplasty, right 0 10/07/2022 Elevated hemoglobin A1c 08/06/2022 COPD (chronic obstructive pulmonary disease) HTN (hypertension) 08/05/2022 Hyperlipidemia 08/05/2022 Hypothyroidism 08/05/2022 Atrial fibrillation 08/05/2022 Chronic anticoagulation 08/05/2022 Displaced fracture of acromi al process, right shoulder, initial encounter for closed fracture 05/05/2022 Status post right rotator cuff repair 03/17/2022 Rotator cuff tear arthropathy of right shoulder 03/17/2022 Right shoulder pain 03/17/2022 Avascular necrosis of bone of shoulder Social History Tobacco Use Types Packs/Day Years Used Date Smoking Tobacco: Every Day Cigarettes 0.3 40 Smokeless Tobacco: Never Tobacco Cessation:Ready to Q uit: Yes; Counseling Given: Yes Alcohol Use Standard Drinks/Week Comments Never 0 (1 standard drink = 0.6 oz pur e alcohol) AUDIT-C Answer Date Recorded Q1: How often do you have a drink containing alcohol? Never 10/07/2022 Q2: How many drinks containi ng alcohol do you have on a typical day when you are drinking? Patient does not drink Q3: How often do you have si x or more drinks on one occasion? Never 10/07/2022 Abuse Screen Answer Date Recorded Unsafe at Home or Work/School Not on file Feels Threatened by Someone? Not on file 05/2023 Does Anyone Keep You from Co ntacting Others or Doint Things Outside the Home? Not on file 10/13/2023 Physical Sign of Abuse Present Not on file 0 10/13/2023 Housing Stability Answer Date Recorded Current Living Arrangements Not on file 05/2023 Potentially Unsafe Housing Conditions Not on garry e 10/13/2023 Family and Community Support Answer Sekou e Recorded Help with Day-to-Day Activities Not on file 11/15/2022 Lonely or Isolated Not on file 11/15/2022 Employment Answer Date Recorded Do you want help finding or keeping work or a niecy b? Not on file 11/15/2022 Disabilities Answer Date Recorded Concentrating, Remembering, or Making Decisions Difficulty Not on file 10/13/2023 Doing Errands Independently Difficulty Not on fi le 10/13/2023 Education Answer Date Recorded Help with school or training? Not on file Preferred Language Not on file 09/30/2023 Comments No Sex and Gender Information Value Date Recorded Sex Assigned at Not on file Legal Sex Female 9:29 AM EDT Gender Identity Not on file Sexual Orientation Not on file Last Filed Vital Signs Vital Sign Reading Time Taken Comments Blood Pressure 121/76 10/09/2022 11:10 AM EDT Pulse 62 10/09/2022 11:10 AM EDT Temperature 36.3 C (97.3 F) 10/22/2022 2:20 PM EDT Respiratory Rate 16 10/09/2022 11:1 0 AM EDT Oxygen Saturation 95% 10/09/2022 11: 10 AM EDT Inhaled Oxygen Concentration - - Weight 71.1 kg (156 lb 10.2 oz) 10/07/2022 9:27 AM EDT Height 180.3 cm (5' 11 ) 10/07/2022 9:27 AM EDT Body Mass Index 21.85 10/07/2022 9:27 AM EDT Plan of Treatment Health Maintenance Due Date Last Done Comments Annual Gynecologic Pelvic an d Breast Exam 1962 LIPID PANEL 1962 MAMMOGRAM 2002 COLOGUARD 12/28/2007 COLON CANCER SCREENING 5 YEA R SIGMOIDOSCOPY 12/28/2007 COLONOSCOPY 12/28/2007 COLORECTAL CANCER SCREENING 12/28/2007 CT COLONOGRAPHY 12/28/2007 FECAL OCCULT BLOOD TEST 12/28/2007 FIT Testing (1 year) 12/28/2007 Pneumococcal Vaccine 50+ (2 of 2 - PCV) 02/09/2012 02/08/2011 ZOSTER VACCINE (1 of 2) 2012 ANNUAL PHYSICAL 03/17/2022 HEPATITIS C SCREENING 03/17/2022 Hepatitis B (1 of 3 - Risk 3 -dose series) 2022 TDAP/TD VACCINES (2 - Td or Tdap) 08/19/2023 014 INFLUENZA VACCINE 09/08/2024 12/29/2018, , 12/21/2014, Additional history exists Medical Devices Implanted Type Area Ground Water Technician Device Identifier Shelf Expiration Date Model / Serial / Lot Cmt Low/Viscos Cemex/Genta 40g - [id number] Implanted:Qty: 1 on 08/05/2022 by Melchor Gregory MD at [facility] Implant Right: Shoulder TECRES SPA 10/08/2025 1400AG / / [id number] Spacr Shldr Intrspc Kt Cemex Gent 41sm - [id number] - [id number] Implanted:Qty: 1 on 08/05/2022 by Melchor Gregory MD at [facility] Implant Right: Shoulder TECRES SPA 04/07/2026 [id number] / [id number] / Scrw Periph 5x34mm - [id number] Implanted:Qty: 2 on 10/07/2022 by Melchor Gregory MD at [facility] Implant Right: Shoulder TORNIER [id number] / / Scrw Aequalis Perform Periph 5x30mm - [id number] Implanted:Qty: 1 on 10/07/2022 by Melchor Gregory MD at [facility] Implant Right: Shoulder TORNIER [id number] / / Scrw Aequalis Perform Periph 5x26mm - [id number] Implanted:Qty: 1 on 10/07/2022 by Melchor Gregory MD at [facility] Implant Right: Shoulder TORNIER [id number] / / Post Shdlr Aequalis Perform Rev Prss/Fit Sht 7mm - [id number] - [id number] Implanted:Qty: 1 on 10/07/2022 by Melchor Gregory MD at [facility] Implant Right: Shoulder TORNIER [id number] 03/27/2027 [id number] / [id number] / Baseplt Shldr Aequalis Ful/Wedge Aug 15d 25mm - [id number] - [id number] Implanted:Qty: 1 on 10/07/2022 by Melchor Gregory MD at [facility] Implant Right: Shoulder TORNIER [id number] 08/29/2027 [id number] / [id number] / Glenosphere Shldr Ecntrc Inf Offst Pls3 39mm - [id number] - [id number] Implanted:Qty: 1 on 10/07/2022 by Melchor Gregory MD at [facility] Implant Right: Shoulder TORNIER [id number] 12/14/2024 [id number] / [id number] / Plug Bone Restr/Cmt Hum/Elbw [id number] - [id number] - [id number] Implanted:Qty: 1 on 10/07/2022 by Melchor Gregory MD at [facility] Implant Right: Shoulder TORNIER [id number] 03/17/2027 [id number] / [id number] / Stem Hum/Shldr Preform Lng Pls Sz2 09x04e8xp - [id number] - [id number] Implanted:Qty: 1 on 10/07/2022 by Melchor Gregory MD at [facility] Implant Right: Shoulder TORNIER [id number] 06/27/2027 [id number] / [id number] / Cmt Bone Cmw2 20gm - [id number] Implanted:Qty: 2 on 10/07/2022 by Melchor Gregory MD at [facility] Implant Right: Shoulder DEPUY [id number] 12/08/2024 [id number] / / [id number] Insrt Hum/Shldr Perform Rev/10deg Sz1to2 39mm Pls/0 - [id number] - [id number] Implanted:Qty: 1 on 10/07/2022 by Melchor Gregory MD at [facility] Implant Right: Shoulder TORNIER 05/20/2027 [id number] / [id number] / Insurance [employer] MEDICAID [place] Advance Directives * CPR (Attempt to Resuscitate) (Latest Code Status on File) Date Activated Date Inactivated Comments 10/07/2022 1:25 PM 10/09/2022 5:48 PM Question Answer Comments Code Status (Patient has no pulse and is not breathing): CPR (Attempt to Resuscitate) Medical Interventions (Patie nt has pulse or is breathing): Full Level Of Support Discussed With: Patient * CPR (Attempt to Resuscitate) Date Activated Date Inactivated Comments 08/05/2022 2:18 PM 08/08/2022 6:22 PM Question Answer Comments Code Status (Patient has no pulse and is not breathing): CPR (Attempt to Resuscitate) Medical Interventions (Patie nt has pulse or is breathing): Full Level Of Support Discussed With: Patient Care Teams Locum Tenens Relationship Specialty Start Date End Date Dahiana Ram APRN [address] [place] [address] PCP - General Nurse Practitioner 04/17/22
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
[2024-12-16 10:49] LABS: Hematocrit 36.3 % (37.0-47.0); Hemoglobin 11.6 g/dL (12.2-16.2); Immature Granulocytes % 0.4 %; Mean Corpuscular HGB Conc 32.0 g/dL (31.8-35.4); Mean Corpuscular Hemoglobin 28.2 pg (27.0-31.2); Mean Corpuscular Volume 88.1 fl (81-99); Nucleated Red Blood Cells % 0 %; Platelet Count 342 K/mm3 (142-424); Red Blood Count 4.12 M/mm3 (4.20-5.40); Red Cell Distribution Width-SD 58.4 fL; White Blood Count 10.8 K/mm3 (4.8-10.8)
--- NOTE | 2024-12-16 10:51 | ECG_ITS ---
APPROVED REPORT Exam: Resting ECG HR:84 bpm ECG Measurements Heart Rate 84 AXES KS 167 P 62 QRSd 115 QRS 70 QT 405 T 62 QTc 446 Conclusion SINUS RHYTHM WITH FREQUENT VENTRICULAR PREMATURE COMPLEXES MODERATE INTRAVENTRICULAR CONDUCTION DELAY [110+ ms QRS DURATION] MODERATE ST DEPRESSION [0.05+ mV ST DEPRESSION] ABNORMAL ECG UNCONFIRMED REPORT Electronically signed by : LISA OSUNA, 12/17/2024 02:16:53
[2024-12-16 10:53] LABS: Coronavirus 19, PCR Not Detected (NotDetected); Influenza A, PCR Not Detected (NotDetected); Influenza B, PCR Not Detected (NotDetected)
--- NOTE | 2024-12-16 10:58 | CT_ITS ---
PROCEDURE INFORMATION: Exam: CTA Chest With Contrast Exam date and time: 12/16/2024 12:20 PM Age: 63 years old Clinical indication: Chest wall pain; Additional info: Cp to back TECHNIQUE: Imaging protocol: Computed tomographic angiography of the chest with contrast. Exam focused on the arteries. 3D rendering (Not supervised by radiologist): MIP and/or 3D reconstructed images were created by the technologist. Radiation optimization: All CT scans at this facility use at least one of these dose optimization techniques: automated exposure control; mA and/or kV adjustment per patient size (includes targeted exams where dose is matched to clinical indication); or iterative reconstruction. Contrast material: ISOVUE 370; Contrast volume: 80 ml; Contrast route: INTRAVENOUS (IV); COMPARISON: CT ANGIO CHEST PE PROTOCOL 10/22/2023 2:09 PM FINDINGS: Pulmonary arteries: No definite pulmonary embolism is seen to the level of the lobar pulmonary arterial branches bilaterally. The heterogeneous or decreased density of some small segmental and subsegmental pulmonary arterial branches may reflect inadequate enhancement, beam hardening, or motion, flow, or partial volume averaging artifact. One or more small segmental or subsegmental pulmonary emboli cannot be excluded. . Aorta: Unremarkable. No aortic aneurysm. No aortic dissection. Lungs: Mild opacities in the right lower lobe may represent atelectasis or pneumonia. Pleural spaces: Unremarkable. No pneumothorax. No pleural effusion. Heart: Unremarkable. No cardiomegaly. No pericardial effusion. Coronary arteries: Coronary artery calcifications may indicate coronary artery disease. Lymph nodes: Unremarkable. No enlarged lymph nodes. Gallbladder and biliary ducts: Cholecystectomy Spleen: Splenules for the spleen Bones/joints: Right shoulder arthroplasty Soft tissues: Unremarkable. IMPRESSION: 1. No definite pulmonary embolism is seen to the level of the lobar pulmonary arterial branches bilaterally. The heterogeneous or decreased density of some small segmental and subsegmental pulmonary arterial branches may reflect inadequate enhancement, beam hardening, or motion, flow, or partial volume averaging artifact. One or more small segmental or subsegmental pulmonary emboli cannot be excluded. . 2. Mild opacities in the right lower lobe may represent atelectasis or pneumonia.
[2024-12-16 10:59] LABS: Albumin Level 4.6 g/dl (3.5-5.0); Chloride 100 mmol/L (98-107)
[2024-12-16 11:00] LABS: Potassium 5.3 mmoL/L (3.5-5.1); Sodium 136 mmol/L (136-145)
[2024-12-16 11:02] LABS: Alanine Aminotransferase 20 U/L (12-78); Albumin/Globulin Ratio 1.4 (1.1-1.8); Alkaline Phosphatase 106 U/L (38-126); Anion Gap 10.3 mEq/L (5-15); Aspartate Amino Transferase 35 U/L (14-36); Bilirubin,Total 0.8 mg/dl (0.2-1.3); Blood Urea Nitrogen 10 mg/dl (7-17); Carbon Dioxide 31 mmol/L (22.0-30.0); Creatinine Clearance Estimated 65 mL/min (50-200); Creatinine,Serum 0.90 mg/dl (0.52-1.04); Estimated Glomerular Filt Rate 64 ml/min (>60); GFR (African American) 77 ML/MIN (>60); Globulin 3.3 g/dL (1.3-3.2); Total Protein,Serum 7.9 g/dl (6.3-8.2)
--- NOTE | 2024-12-16 11:02 | [facility].EDCP ---
Discharge Plan Disposition Chief Complaint: Shortness of Breath/Dyspnea Discharge ED Provider: Richard Boggs [facility] General Chief Complaint: Shortness of Breath/Dyspnea Stated Complaint: shortness of breath Time Seen by Provider: 12/16/24 10:35 Mode of Arrival: EMS Source of Information: Patient and EMS Description of Symptoms (Recalled from ER Triage Doc. by RN): EMS was called out for pt having shortness of breath. EMS states when they arrived on scene the pt was 79% on 2L NC 02 at baseline. EMS placed the pt on 4L 02 NC and pt 02 went up to 94%. EMS started a continuous DuoNeb enroute. pt reported that she has chest pain and lower back pain. pt reports that she has had shortness of breath for the past year but over the past 2 weeks it has got worse. hx of COPD. History of Present Illness HPI narrative: Patient is 63-year-old female past medical history of COPD who presents emergency department for evaluation of shortness of breath. Onset was acute, since . Shortness of breath and cough, chest pain radiating through to the back associated. Worse with coughing. Upon EMS arrival patient was hypoxic requiring 2 L nasal cannula which was escalated to 4 L nasal cannula in the emergency department. Prehospital received DuoNeb, methylprednisolone. Upon arrival patient has persistent shortness of breath. She chest pain is moderate in intensity radiates to the back not particularly modifiable except for coughing. No abdominal pain. No other acute complaints at this time. Please note that above description of symptoms, in this electronic medical record under categorization of recalled from ER triage doctor by RN are reflective of an initial nursing assessment, however, is not reflective of my full history and physical exam that was personally taken and clarified. Consequentially, this preceding description of symptoms, which may include the patient's categorized chief complaint in the EMR, do not reflect my personal clinical impression, and the ultimate description of history of present illness and patient stated complaints should be deferred to this section of the note. Unless stated otherwise or congruent with this section of the note, additional signs, symptoms, or incongruence should be interpreted as inaccurate with my clinical impression. Related Data Home Medications ?Medication ?Instructions ?Recorded ?Confirmed citalopram 10 mg tablet 10 mg PO DAILY 03/01/22 04/26/24 diclofenac sodium 1 % topical gel 1 ea topical QIDP PRN Mild Pain 03/01/22 04/26/24 (Scale Score 1-4) levothyroxine 50 mcg tablet 50 mcg PO DAILY 03/01/22 04/26/24 diclofenac sodium 75 mg 75 mg PO BID 04/13/23 04/26/24 tablet,delayed release lidocaine 5 % topical patch 1 patch topical DAILY 04/13/23 04/26/24 (Lidoderm) gabapentin 600 mg tablet 600 mg PO BID 01/23/24 04/26/24 Previous Rx's ?Medication ?Instructions ?Recorded pantoprazole 40 mg tablet,delayed 40 mg PO DAILY GERD #90 tabs 03/04/21 release famotidine 40 mg tablet 40 mg PO BID acid reflux #60 tabs 01/28/23 fluticasone fur. 100 mcg-umeclid 1 inh inhalation DAILY 30 days #60 10/29/23 62.5 mcg-vilant 25 mcg ea inhalat.powder (Trelegy Ellipta) atorvastatin 40 mg tablet 40 mg PO HS Cholesterol #30 tabs 03/29/24 empagliflozin 10 mg tablet 10 mg PO DAILY #30 tabs 03/29/24 (Jardiance) metoprolol succinate 100 mg 100 mg PO BID 30 days #60 tabs 03/29/24 tablet,extended release 24 hr rivaroxaban 20 mg tablet (Xarelto) 20 mg PO QPMWITHMEAL #30 tabs 03/29/24 spironolactone 25 mg tablet 12.5 mg (1/2 x 25 mg) PO DAILY 30 03/29/24 days #30 tabs torsemide 20 mg tablet 20 mg PO DAILY 30 days #30 tabs 03/29/24 aspirin 81 mg tablet,delayed See Rx Instructions .Route 04/03/24 release .COMPLEX #100 tabs amiodarone 200 mg tablet 200 mg PO Q24H 30 days #30 tabs 04/26/24 sodium,potassium,mag sulfates 17.5 See Rx Instructions PO .COMPLEX 07/24/24 gram-3.13 gram-1.6 gram oral soln #354 mL (Suprep Bowel Prep Kit) Allergies Allergy/AdvReac Type Severity Reaction Status Date / Time codeine Allergy Mild Nausea Verified 04/26/24 15:05 penicillin G (PENICILLIN G) Allergy Mild I-RASH/NV Verified 04/26/24 15:05 acetaminophen (ACETAMINOPHEN) AdvReac Mild NOT Verified 04/26/24 15:05 ALLERGIC. NEED TO WATCH DUE TO LIVER PFSH [facility] Disclaimer: The information contained in this section may have been updated after the patient was seen, as this information can be updated by other users. Medical History Acute on chronic HFrEF (heart failure with reduced ejection fraction) Normal coronary arteries Unstable angina Atypical angina HFrEF (heart failure with reduced ejection fraction) Atrial flutter with rapid ventricular response Elevated liver enzymes Smoking greater than 30 pack years Dyspnea on exertion Pulmonary emphysema Dyspnea Afib Sinus bradycardia Chronic, continuous use of opioids Right rotator cuff tear Hypothyroidism Atrial fibrillation/flutter Pulmonary hypertension Hepatitis C Tobacco dependence (HFpEF) heart failure with preserved ejection fraction Hyperlipidemia Hypertension COPD (chronic obstructive pulmonary disease) Surgical History History of hysterectomy History of surgery on right wrist History of mandibular surgery History of left heart catheterization History of cholecystectomy S/P rotator cuff repair H/O splenectomy History of cardioversion Family History Mother Stroke Father Coronary artery disease Social History Smoking Status: Current every day smoker tobacco type: cigarettes packs per day: 1 years smoked: 40 second hand exposure: Yes alcohol intake: never substance use type: denies use current occupational status: unemployed and disabled Travel in the last 8 weeks?: None household members: none housing: house lives independently: Yes marital status: single number of children: 3 current occupation: Disabled caffeine: Yes additional social history: The patient is single and lives alone. She identifies her daughter Stephanie as her POA. She has 3 adult children. 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 She identifies a significant smoking history of 1 pack/day for 40 years and ongoing. She denies routine alcohol consumption. She identifies with the [employer] armaan. She elects a full code. Have you lived/traveled outside [place] in past 30 days?: No Contact w/someone who lives/traveled outside [place] past 30 days?: No Exposure to someone with infectious disease in past 14 days?: No Do you have a fever (greater than 100.4 F or 38 C)?: No Have you tested positive for COVID-19?: No Exposed to someone with COVID-19 in past 14 days?: No Do you have a sore throat?: No Do you have a cough?: No Do you have any weakness?: No Do you have any diarrhea?: No Are you experiencing any unusual bleeding?: No Do you have any muscle aches/pain?: No Do you have any abdominal pain?: No Are you experiencing loss of taste or smell?: No Other Medical History Have you received the Flu Vaccine for this season: No Have you received the Pneumonia Vaccine: No ROS Obtained: Yes Systems reviewed as appropriate & no additional complaints except as documented Physical Exam General General appearance: alert and in no apparent distress Head Head exam: atraumatic and normocephalic Eye Eye exam: Present PERRL and EOMI ENT ENT exam: Present mucous membranes moist Neck Neck exam: Present normal inspection Chest Chest inspection: Present normal inspection and symmetric chest wall rise Respiratory Respiratory exam: Present respiratory distress, wheezes, accessory muscle use and prolonged expiratory phase Cardiovascular Cardiovascular exam: Present regular rate and normal rhythm Abdominal Exam Abdominal exam: Present soft; Absent tenderness Extremities Exam Extremities exam: Present normal inspection Neurological Exam Neurological exam: Present alert Psychiatric Psychiatric exam: Present normal affect Skin Skin exam: Present warm and dry HEART Score HEART Score HEART Score assessment performed?: Yes History (anamnesis): Highly suspicious ECG: Non-specific disturbance Age: >65 years Risk factors: 3 or more risk factors Troponin: </= normal limit HEART Score: 7 Critical Care Critical Care Time Critical Care Time: Yes Attestation: On 12/16/24, the high probability of a clinically significant, sudden or life threatening deterioration of the following system(s) required my full and direct attention, intervention and personal management. The time I documented below is in addition to time spent performing reported procedures but includes the following listed in this critical care notation. Total Time Total Critical Care Time: 45 Medical Decision Making Alberto Inquiry Pt receiving controlled substance: No Vital Signs Vital Signs: 12/16/24 10:25 12/16/24 10:25 12/16/24 10:28 Temperature 100.5 F H 100.5 F H Temperature Source Oral Oral Pulse Rate 88 87 Pulse Rate [Right] 88 Respiratory Rate 20 20 16 Blood Pressure 135/91 H 135/91 H Blood Pressure [Right Arm] 135/91 H Blood Pressure Mean Blood Pressure Mean [Right Arm] 105 Blood Pressure Source Automatic Cuff Blood Pressure Source [Right Arm] Automatic Cuff Blood Pressure Position Supine Blood Pressure Position [Right Arm] Supine 02 Sat by Pulse Oximetry 90 L 90 L 89 L Oxygen Delivery Method Nasal Cannula Nasal Cannula Nasal Cannula Oxygen Flow Rate (LPM) 5 5 5 12/16/24 10:30 12/16/24 11:00 12/16/24 11:31 Temperature Temperature Source Pulse Rate 88 75 83 Pulse Rate [Right] Respiratory Rate 29 H 27 H 25 H Blood Pressure 138/91 H 130/86 122/83 Blood Pressure [Right Arm] Blood Pressure Mean Blood Pressure Mean [Right Arm] Blood Pressure Source Blood Pressure Source [Right Arm] Blood Pressure Position Blood Pressure Position [Right Arm] 02 Sat by Pulse Oximetry 89 L 89 L 91 L Oxygen Delivery Method Nasal Cannula Nasal Cannula Nasal Cannula Oxygen Flow Rate (LPM) 5 5 5 12/16/24 12:01 12/16/24 12:28 12/16/24 12:30 Temperature Temperature Source Pulse Rate 82 81 80 Pulse Rate [Right] Respiratory Rate 22 18 22 Blood Pressure 107/72 L 103/59 L Blood Pressure [Right Arm] Blood Pressure Mean Blood Pressure Mean [Right Arm] Blood Pressure Source Blood Pressure Source [Right Arm] Blood Pressure Position Blood Pressure Position [Right Arm] 02 Sat by Pulse Oximetry 91 L 88 L 89 L Oxygen Delivery Method Nasal Cannula Nasal Cannula Nasal Cannula Oxygen Flow Rate (LPM) 5 5 5 12/16/24 13:00 12/16/24 13:30 12/16/24 13:30 Temperature Temperature Source Pulse Rate 77 76 Pulse Rate [Right] Respiratory Rate 25 H 20 Blood Pressure 97/60 L 94/60 L 94/60 L Blood Pressure [Right Arm] Blood Pressure Mean 66 Blood Pressure Mean [Right Arm] Blood Pressure Source Blood Pressure Source [Right Arm] Blood Pressure Position Blood Pressure Position [Right Arm] 02 Sat by Pulse Oximetry 91 L 91 L Oxygen Delivery Method Nasal Cannula Nasal Cannula Oxygen Flow Rate (LPM) 5 5 12/16/24 14:00 12/16/24 14:30 Temperature Temperature Source Pulse Rate 76 74 Pulse Rate [Right] Respiratory Rate 19 20 Blood Pressure 97/61 L 97/60 L Blood Pressure [Right Arm] Blood Pressure Mean Blood Pressure Mean [Right Arm] Blood Pressure Source Blood Pressure Source [Right Arm] Blood Pressure Position Blood Pressure Position [Right Arm] 02 Sat by Pulse Oximetry 92 L 93 L Oxygen Delivery Method Nasal Cannula Nasal Cannula Oxygen Flow Rate (LPM) 5 5 Lab Data Labs: Lab Results 12/16/24 10:25: WBC 10.8, RBC 4.12 L, Hgb 11.6 L, Hct 36.3 L, MCV 88.1, MCH 28.2, MCHC 32.0, RDW 18.6 H, Plt Count 342, MPV 10.2, Neut % (Auto) 73.3, Lymph % (Auto) 14.2, [place] % (Auto) 10.1 H, Eos % (Auto) 1.5, Baso % (Auto) 0.5, Neut # (Auto) 7.9 H, Lymph # (Auto) 1.5, [place] # (Auto) 1.1 H, Eos # (Auto) 0.2, Baso # (Auto) 0.1, Sodium 136, Potassium 5.3 H, Chloride 100, Carbon Dioxide 31 H, Anion Gap 10.3, BUN 10, Creatinine 0.90, Estimated Creat Clear 65, Estimated GFR 64, Est GFR ( Amer) 77, Glucose 95, Calcium 8.5, Magnesium 1.9, Total Bilirubin 0.8, AST 35, ALT 20, Alkaline Phosphatase 106, Troponin I < 0.01, NT-Pro-B Natriuret Pep 1060 H, Total Protein 7.9, Albumin 4.6, Globulin 3.3 H, Albumin/Globulin Ratio 1.4, HCV Ab ALFRED w/Rflx PCR Qn Reactive, HIV Ag/Ab Combo Qual Negative 12/16/24 10:28: VBG pH 7.35, VBG pCO2 52.9 H, VBG pO2 29.3, VBG HCO3 28.5, VBG Total CO2 30.2 H, VBG O2 Saturation 55.9, VBG Base Excess 2.9 H, VBG Lactic Acid 1.7 12/16/24 10:47: SARS-CoV-2 (PCR) Not detected, Influenza A Untype (PCR) Not detected, Influenza Type B (PCR) Not detected 12/16/24 13:02: Troponin I < 0.01 12/16/24 10:25 12/16/24 10:25 Response Orders (Tests/Meds): ED MEDICATIONS Generic Name Dose Route Start Last Admin Trade Name Freq PRN Reason Stop Dose Admin Ceftriaxone Sodium 1 gm/ 50 mls @ 100 mls/hr 12/16/24 11:00 12/16/24 12:33 Sodium Chloride IV 12/26/24 10:59 Infused Q24H AINSLEY Infusion Sodium Chloride 10 ml 12/16/24 12:32 12/16/24 12:33 Sodium Chloride 0.9% 10ml Syr (Rad Only) IV 01/15/25 12:31 10 ml NEEDED PRN Administration Maintain IV Site Discontinued Medications Generic Name Dose Route Start Last Admin Trade Name Melecioq PRN Reason Stop Dose Admin Albuterol/Ipratropium 9 ml 12/16/24 10:58 12/16/24 11:20 Ipratropium/Albuterol 3 Ml Neb IH 12/16/24 10:59 9 ml ONCE ONE Administration Aspirin 324 mg 12/16/24 11:27 12/16/24 11:40 Aspirin 81mg Chewable Tablet PO 12/16/24 11:28 Not Given ONCE ONE Azithromycin 500 mg/ Sodium 250 mls @ 250 mls/hr 12/16/24 11:00 12/16/24 12:34 Chloride IV 12/16/24 11:01 Infused ONCE ONE Infusion Iopamidol 80 ml 12/16/24 12:32 12/16/24 12:33 Iopamidol-370 (76%);100ml Bottle IV 12/16/24 12:33 80 ml ONCE ONE Administration Morphine Sulfate 4 mg 12/16/24 11:27 12/16/24 11:37 Morphine 4mg/Ml Syringe IV 12/16/24 11:28 4 mg ONCE ONE Administration Ondansetron HCl 4 mg 12/16/24 11:27 12/16/24 11:37 Ondansetron 4mg/2ml Vial IV 12/16/24 11:28 4 mg ONCE ONE Administration Sodium Chloride 50 ml 12/16/24 12:32 12/16/24 12:33 0.9 % Sodium Chloride 50 Ml Vial IV 12/16/24 12:33 50 ml ONCE ONE Administration ORDERS Category Date Time Status CT angio chest - dissection Stat Cat Scan 12/16/24 10:58 Completed POCUS Point of Care (ER Only) Stat Exams 12/16/24 10:38 Completed BNP [NT Pro Brain Natriuretic Pep.] Stat Lab 12/16/24 10:25 Completed CBC w/Auto Diff [Complete Blood Count Auto Diff] Stat Lab 12/16/24 10:25 Completed CMP [Comprehensive Metabolic Panel] Stat Lab 12/16/24 10:25 Completed Full Resp Panel w/COVID ([facility]) Routine Lab 12/16/24 11:02 Ordered HCV RNA PCR, Quant Stat Lab 12/16/24 10:25 Received HIV Combo Stat Lab 12/16/24 10:25 Completed Hepatitis C Ab Qual. W/ RFX Stat Lab 12/16/24 10:25 Completed MG [Magnesium] Stat Lab 12/16/24 10:25 Completed Rapid PCR Covid and Flu A/B Stat Lab 12/16/24 10:47 Completed Trop I [Troponin I] Stat Lab 12/16/24 10:25 Completed Troponin I Q3H Lab 12/16/24 13:02 Completed Troponin I Q3H Lab 12/16/24 17:00 Ordered Blood Culture Stat Micro 12/16/24 11:09 Received VBG [Venous Blood Gas] Stat RT 12/16/24 10:28 Completed ECG Data Tracing #1: ECG Narrative: Independently interpreted by me rate is 84, rhythm is irregular, sinus with frequent PVCs, QTc 446, no ST elevation in anatomical contiguous leads. MDM Narrative Medical Decision Narrative: In summary patient is 63-year-old female with past medical history described but presents emergency department for evaluation of shortness of breath cough, chest pain. Patient is hemodynamically stable in significant respiratory distress upon arrival, febrile temperature 100.5 ?F. Oxygen was escalated to 4 L nasal cannula for maintenance of oxygen saturations approximately 90%. Patient has poor air movement in all lung ignacio, wheezing in all lung ignacio with prolonged expiratory phase borderline silent chest. Methylprednisolone administered prehospital. DuoNebs x 3 will be administered. Ceftriaxone and azithromycin will be administered. Differential diagnosis includes viral COPD exacerbation, bacterial pneumonia, ACS, among others. Patient does have a history of acute on chronic heart failure exacerbations previously but does not appear significantly volume overloaded initial crystalloid resuscitation will be deferred. Workup reviewed by me no significant leukocytosis no transfusable anemia, remarkably compensated acid-base status given level of initial respiratory distress, no JAYJAY or critical electrolyte abnormality serial troponins undetectably low elevated BNP 1060. CTA chest no definitive pulmonary embolism, mild opacities in the right lower lobe which reflect pneumonia given clinical picture. Equivocal read for multiple pulmonary emboli versus artifact the case discussed with hospital medicine and anticoagulation plan versus deferral was pending at time of admission they will admit the patient their service for continued evaluation at this time. Procedure: Procedure performed was [id number] ultrasound. Procedure performed by Richard Boggs. Subxiphoid views of the cardiac four-chamber were obtained using curvilinear probe as phased array probe was unable to obtain optimal views. No large pericardial effusion, no critically depressed global ejection fraction. Images were saved to a permanent archive and were technically adequate and did necessitate further imaging. Patient tolerated the procedure well there were no immediate complications.
[2024-12-16 11:03] LABS: Calcium 8.5 mg/dl (8.4-10.2); Glucose 95 mg/dl (74-100); Magnesium 1.9 mg/dl (1.6-2.3)
[2024-12-16 11:13] LABS: NT Pro Brain Natriuretic Pep. 1060 pg/mL (0-125)
[2024-12-16 11:19] LABS: Troponin I < 0.01 ng/ml (0.00-0.034)
[2024-12-16] MEDS: CEFTRIAXONE 1 GM 1 GM in 0.9 % SODIUM CHLORIDE 50 ML IV (11:19)
[2024-12-16] MEDS: IPRATROPIUM/ALBUTEROL 3 ML NEB 9 ML IH (11:20)
[2024-12-16] MEDS: AZITHROMYCIN 500 MG in 0.9 % SODIUM CHLORIDE 250 ML 250 MG IV (11:26)
[2024-12-16] MEDS: MORPHINE 4MG/ML SYRINGE 4 MG IV (11:37)
[2024-12-16] MEDS: ONDANSETRON 4MG/2ML VIAL 4 MG IV (11:37)
[2024-12-16 12:14] LABS: Hepatitis C Ab Qual. W/ RFX REACTIVE (Negative)
[2024-12-16] MEDS: SODIUM CHLORIDE 0.9% 10ML SYR (RAD ONLY) 10 ML IV (12:33)
[2024-12-16] MEDS: 0.9 % SODIUM CHLORIDE 50 ML VIAL IV (12:33)
[2024-12-16] MEDS: IOPAMIDOL-370 (76%);100ML BOTTLE 80 ML IV (12:33)
[2024-12-16 13:47] LABS: Troponin I < 0.01 ng/ml (0.00-0.034)
--- NOTE | 2024-12-16 15:44 | PC.NURSE ---
HS notified of the need for a bed to admit to the hospitalist.
--- NOTE | 2024-12-16 16:03 | PC.NURSE ---
Report called to TENISHA Yo
--- NOTE | 2024-12-16 17:22 | EXP.HP ---
History of Present Illness *Admission Date: 12/16/24 *Reason for visit:: Shortness of breath *History of present illness: Delia Buchanan is a 63-year-old female with a medical history significant for COPD with 2 L as needed, a flutter on Xarelto, HFrEF, hypothyroidism, anxiety/depression, GERD who presents with progressive shortness of breath over the past few days, yellow productive cough. She states she was doing well prior to couple days ago, and has had progressive shortness of breath since then. No chest pain, abdominal pain, leg swelling. Workup in the ED significant for WBC 10.8, potassium 5.3, BNP 1060, negative for flu/COVID-19, troponins normal, CTA chest suggesting right lower lobe pneumonia, and possible PE. She was given ceftriaxone, DuoNebs, azithromycin, morphine, Zofran. She is also requiring 4 to 5 L nasal cannula continuously, which is a new requirement. Given this presentation, ED provider discussed case with me and decided to admit patient for acute on chronic hypoxic respiratory failure secondary to community-acquired pneumonia, and COPD exacerbation. [facility] Disclaimer: The information contained in this section may have been updated after the patient was seen, as this information can be updated by other users. Medical History Acute on chronic HFrEF (heart failure with reduced ejection fraction) Normal coronary arteries Unstable angina Atypical angina HFrEF (heart failure with reduced ejection fraction) Atrial flutter with rapid ventricular response Elevated liver enzymes Smoking greater than 30 pack years Dyspnea on exertion Pulmonary emphysema Dyspnea Afib Sinus bradycardia Chronic, continuous use of opioids Right rotator cuff tear Hypothyroidism Atrial fibrillation/flutter Pulmonary hypertension Hepatitis C Tobacco dependence (HFpEF) heart failure with preserved ejection fraction Hyperlipidemia Hypertension COPD (chronic obstructive pulmonary disease) Surgical History History of hysterectomy History of surgery on right wrist History of mandibular surgery History of left heart catheterization History of cholecystectomy S/P rotator cuff repair H/O splenectomy History of cardioversion Family History Mother Stroke Father Coronary artery disease Social History Smoking Status: Current every day smoker tobacco type: cigarettes packs per day: 1 years smoked: 40 second hand exposure: Yes alcohol intake: never substance use type: denies use current occupational status: unemployed and disabled Travel in the last 8 weeks?: None household members: none housing: house lives independently: Yes marital status: single number of children: 3 current occupation: Disabled caffeine: Yes additional social history: The patient is single and lives alone. She identifies her daughter Stephanie as her POA. She has 3 adult children. 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 She identifies a significant smoking history of 1 pack/day for 40 years and ongoing. She denies routine alcohol consumption. [facility]. She elects a full code. Have you lived/traveled outside US in past 30 days?: No Contact w/someone who lives/traveled outside US past 30 days?: No Exposure to someone with infectious disease in past 14 days?: No Do you have a fever (greater than 100.4 F or 38 C)?: No Have you tested positive for COVID-19?: No Exposed to someone with COVID-19 in past 14 days?: No Do you have a sore throat?: No Do you have a cough?: No Do you have any weakness?: No Do you have any diarrhea?: No Are you experiencing any unusual bleeding?: No Do you have any muscle aches/pain?: No Do you have any abdominal pain?: No Are you experiencing loss of taste or smell?: No Other Medical History Have you received the Flu Vaccine for this season: No Have you received the Pneumonia Vaccine: Yes Meds Home Medications and Allergies Home Medications ?Medication ?Instructions ?Recorded ?Confirmed ?Type pantoprazole 40 mg tablet,delayed 40 mg PO DAILY GERD #90 tabs 03/04/21 12/16/24 Rx release citalopram 10 mg tablet 10 mg PO DAILY 03/01/22 12/16/24 History diclofenac sodium 1 % topical gel 1 ea topical QIDP PRN Mild Pain 03/01/22 12/16/24 History (Scale Score 1-4) levothyroxine 50 mcg tablet 50 mcg PO DAILY 03/01/22 12/16/24 History famotidine 40 mg tablet 40 mg PO BID acid reflux #60 tabs 01/28/23 12/16/24 Rx diclofenac sodium 75 mg 75 mg PO BID 04/13/23 12/16/24 History tablet,delayed release lidocaine 5 % topical patch 1 patch topical DAILY 04/13/23 12/16/24 History (Lidoderm) fluticasone fur. 100 mcg-umeclid 1 inh inhalation DAILY 30 days #60 10/29/23 12/16/24 Rx 62.5 mcg-vilant 25 mcg ea inhalat.powder (Trelegy Ellipta) gabapentin 600 mg tablet 600 mg PO BID 01/23/24 12/16/24 History atorvastatin 40 mg tablet 40 mg PO HS Cholesterol #30 tabs 03/29/24 12/16/24 Rx empagliflozin 10 mg tablet 10 mg PO DAILY #30 tabs 03/29/24 12/16/24 Rx (Jardiance) metoprolol succinate 100 mg 100 mg PO BID 30 days #60 tabs 03/29/24 12/16/24 Rx tablet,extended release 24 hr rivaroxaban 20 mg tablet (Xarelto) 20 mg PO QPMWITHMEAL #30 tabs 03/29/24 12/16/24 Rx spironolactone 25 mg tablet 12.5 mg (1/2 x 25 mg) PO DAILY 30 03/29/24 12/16/24 Rx days #30 tabs torsemide 20 mg tablet 20 mg PO DAILY 30 days #30 tabs 03/29/24 12/16/24 Rx aspirin 81 mg tablet,delayed See Rx Instructions .Route 04/03/24 12/16/24 Rx release .COMPLEX #100 tabs amiodarone 200 mg tablet 200 mg PO Q24H 30 days #30 tabs 04/26/24 12/16/24 Rx albuterol sulfate 90 mcg/actuation 1 puff inhalation NEEDED PRN 12/16/24 12/16/24 History aerosol inhaler (Ventolin HFA) COPD budesonide-formoterol HFA 160 1 puff inhalation DAILY 12/16/24 12/16/24 History mcg-4.5 mcg/actuation aerosol inhaler (Symbicort) New Prescriptions to Start Prescriptions: Allergies Allergy/AdvReac Type Severity Reaction Status Date / Time codeine Allergy Mild Nausea Verified 04/26/24 15:05 penicillin G (PENICILLIN G) Allergy Mild I-RASH/NV Verified 04/26/24 15:05 acetaminophen (ACETAMINOPHEN) AdvReac Mild NOT Verified 04/26/24 15:05 ALLERGIC. NEED TO WATCH DUE TO LIVER Exam Data for Last 24 hours Vital signs and Labs for Last 24 Hours: Temp Pulse Resp BP Pulse Ox O2 Del Method O2 Flow Rate 98.1 F 80 21 103/68 L 91 L Nasal Cannula 5 12/16/24 16:51 12/16/24 16:51 12/16/24 16:51 12/16/24 16:51 12/16/24 16:51 12/16/24 16:51 12/16/24 16:51 Laboratory Results - last 24 hr 12/16/24 10:25: WBC 10.8, RBC 4.12 L, Hgb 11.6 L, Hct 36.3 L, MCV 88.1, MCH 28.2, MCHC 32.0, RDW 18.6 H, Plt Count 342, MPV 10.2, Neut % (Auto) 73.3, Lymph % (Auto) 14.2, Coos % (Auto) 10.1 H, Eos % (Auto) 1.5, Baso % (Auto) 0.5, Neut # (Auto) 7.9 H, Lymph # (Auto) 1.5, Coos # (Auto) 1.1 H, Eos # (Auto) 0.2, Baso # (Auto) 0.1, Sodium 136, Potassium 5.3 H, Chloride 100, Carbon Dioxide 31 H, Anion Gap 10.3, BUN 10, Creatinine 0.90, Estimated Creat Clear 65, Estimated GFR 64, Est GFR ( Amer) 77, Glucose 95, Calcium 8.5, Magnesium 1.9, Total Bilirubin 0.8, AST 35, ALT 20, Alkaline Phosphatase 106, Troponin I < 0.01, NT-Pro-B Natriuret Pep 1060 H, Total Protein 7.9, Albumin 4.6, Globulin 3.3 H, Albumin/Globulin Ratio 1.4, HCV Ab ALFRED w/Rflx PCR Qn Reactive, HIV Ag/Ab Combo Qual Negative 12/16/24 10:28: VBG pH 7.35, VBG pCO2 52.9 H, VBG pO2 29.3, VBG HCO3 28.5, VBG Total CO2 30.2 H, VBG O2 Saturation 55.9, VBG Base Excess 2.9 H, VBG Lactic Acid 1.7 12/16/24 10:47: SARS-CoV-2 (PCR) Not detected, Influenza A Untype (PCR) Not detected, Influenza Type B (PCR) Not detected 12/16/24 13:02: Troponin I < 0.01 I & O for Last 24 hours: Intake & Output 12/13/24 12/14/24 12/15/24 12/16/24 23:59 23:59 23:59 23:59 Intake Total 300 / 300 Output Total 700 / 700 Balance -400 / -400 Weight 72.575 kg Constitutional Constitutional: no acute distress and chronically ill appearing *Routine HEENT Exam Head: Present normocephalic Eye: Present EOMI and PERRL ENT: Present mucous membranes moist *Routine Neck Exam Neck: Present supple; Absent lymphadenopathy *Routine Respiratory Exam Respiratory: Present diminished air movement; Absent CTA bilaterally *Routine Cardiovascular Exam Cardiovascular: Present RRR *Routine Abdominal Exam Abdominal: Present soft and normoactive bowel sounds; Absent tenderness *Routine Rectal Exam Rectal:: deferred *Routine Genitalia Exam Genitalia:: deferred *Routine Extremities Exam Extremities: Absent cyanosis, clubbing or edema *Routine Skin Exam Skin: Present warm; Absent rash *Routine Neurological Exam Neurological: Present alert and oriented X3 Assessment and Plan *Assessment and plan (1) COPD exacerbation: Status: Acute Category: Medical Code(s): J44.1 - Chronic obstructive pulmonary disease with (acute) exacerbation Plan Delia Buchanan is a 63-year-old female with a medical history significant for COPD with 2 L as needed, a flutter on Xarelto, HFrEF, hypothyroidism, anxiety/depression, GERD who presents with progressive shortness of breath over the past few days, yellow productive cough. She states she was doing well prior to couple days ago, and has had progressive shortness of breath since then. No chest pain, abdominal pain, leg swelling. Workup in the ED significant for WBC 10.8, potassium 5.3, BNP 1060, negative for flu/COVID-19, troponins normal, CTA chest suggesting right lower lobe pneumonia, and possible PE. She was given ceftriaxone, DuoNebs, azithromycin, morphine, Zofran. She is also requiring 4 to 5 L nasal cannula continuously, which is a new requirement. Given this presentation, ED provider discussed case with me and decided to admit patient for acute on chronic hypoxic respiratory failure secondary to community-acquired pneumonia, and COPD exacerbation. #Acute on chronic hypoxic respiratory failure #Community-acquired pneumonia #COPD exacerbation ? Presented with progressive shortness of breath, increased yellow productive cough. CTA chest showing right lower lobe pneumonia. ? Initial WBC normal. No signs of sepsis. Did have a fever of 100.5. Follow-up CRP, procalcitonin. ? Started IV ceftriaxone 1 g daily, doxycycline 100 mg twice daily. ? Started levalbuterol, ipratropium every 4 hours and Pulmicort twice daily. ? Started prednisone 40 mg day 2/5 starting tomorrow. ? Follow-up sputum, blood cultures. ? Currently requiring 5 L nasal cannula, baseline 2 L as needed. Wean as tolerated. #A-flutter #Possible pulmonary embolism ? CTA suggests possible pulmonary embolism, though patient is already on Xarelto so this is unlikely. She has a current smoker which is a risk factor, does not take estrogen/progesterone. ? Currently rate controlled, continue home amiodarone 200 mg daily, Xarelto 20 mg nightly. Hold home metoprolol for now due to soft pressures. #Chronic HFrEF ? Currently euvolemic. BNP 1060. ? Continue home torsemide 20 mg daily. Hold home spironolactone, metoprolol, Jardiance due to soft pressures at this time. #Hypothyroidism ? Continue home levothyroxine 50 mcg. Follow-up TFTs. #Anxiety/depression ? Continue home citalopram 10 mg. #Peripheral neuropathy ? Continue home gabapentin 600 mg twice daily. #GERD ? Continue home PPI, H2 iftikhar. Full code DVT prophylaxis: Home Xarelto Home medications: Restarted, hold few as above.
[2024-12-16 18:00] LABS: Troponin I < 0.01 ng/ml (0.00-0.034)
--- NOTE | 2024-12-16 18:02 | PC.NURSE ---
Pt new admit from ER. Pt is A&Ox4. Vital signs stable requiring 5L NC to maintain sats greater than 90% at this time. Pt complained of pain in her back and when coughing. PRN norco taken to pt. Pt states that doesn't work for me. I know my body and I will need morphine for this pain. Pt encouraged to try the PO pain medication and then we would re-assess pain. Pt continues to refuse PO pain medication. Hospitalist notified. No new orders at this time. Bed alarm in place for safety. Call light within reach.
[2024-12-16 18:36] LABS: C-Reactive Protein 40.3 mg/L (0-4)
[2024-12-16] MEDS: AMIODARONE 200MG TABLET 200 MG PO (18:45)
[2024-12-16] MEDS: IPRATROPIUM BROMIDE 0.5 MG/2.5ML SOLUTION IH (18:50)
[2024-12-16] MEDS: LEVALBUTEROL 1.25MG/3ML NEB 1.25 MG IH (18:51)
[2024-12-16] MEDS: BUDESONIDE 0.5MG/2ML NEB 0.5 MG IH (18:51)
--- NOTE | 2024-12-16 19:09 | HMH.PTEV ---
Physical Therapy Evaluation Rehab PT IP Evaluation Start: 12/16/24 16:55 Freq: ONCE Status: Active Protocol: Document 12/16/24 19:06 VERONICA (Rec: 12/16/24 19:09 PHOPIO [id number]) Subjective/History History History 63-year-old female with a medical history significant for COPD with 2 L as needed, a flutter on Xarelto, HFrEF, hypothyroidism, anxiety/depression, GERD who presents with progressive shortness of breath over the past few days, yellow productive cough. She states she was doing well prior to couple days ago, and has had progressive shortness of breath since then. No chest pain, abdominal pain, leg swelling. Workup in the ED significant for WBC 10.8, potassium 5.3, BNP 1060, negative for flu/COVID-19, troponins normal, CTA chest suggesting right lower lobe pneumonia, and possible PE. She was given ceftriaxone, DuoNebs, azithromycin, morphine, Zofran. She is also requiring 4 to 5 L nasal cannula continuously, which is a new requirement. Given this presentation, ED provider discussed case with me and decided to admit patient for acute on chronic hypoxic respiratory failure secondary to community-acquired pneumonia, and COPD exacerbation. Subjective Subjective Pt reports she lives alone, [address] the home, and she is generally independent with all mobility without an AD. She reports she fells increased SOA with all exertion at this time, but does agree to mobility assessment. [facility] How much help from another person do you currently need... Turning from your None back to your side while in a flat bed without using bedrails? Moving from lying on None back to sitting on the side of a flat bed without using bedrails? Moving to and from a None bed to a chair ( including a wheelchair)? Standing up from a None chair using your arms? (e.g., wheelchair, bedside chair) Walking in hospital A little room? Climbing 3-5 steps A little with a railing? Mobility Score 22 Mobility Level [facility] Mobility 7 Walk 25 feet or more Mobility Calculator Rehab PT IP Eval Objective Appearance Patient Behavior Appropriate Patient Orientation Person,Place,Time Difficulty following none instructions Speech Pattern Clear Ambulation Patient Able to Yes Ambulate Ambulation Observation IP General Gait No Deviations/Normal Pattern Observation Ambulation Distance 5 (feet) Ambulation Ability Contact Guard/Hand Hold Balance Ability to Arise Able, uses arms to help Sitting Balance Steady, safe Standing Balance Steady, wide stance Dynamic Sitting Good Balance Ability Dynamic Standing Good Balance Ability Transfers Bed Transfer Ability Supervision/Stand by Chair Transfer Contact Guard/Hand Hold Ability Sit to Stand Bed Contact Guard/Hand Hold Transfer Ability Sit to Stand Chair Contact Guard/Hand Hold Transfer Ability Rehab PT IP prob,goals,plan Problems Date of Evaluation: 12/16/24 PT IP Problems Bed Mobility,Transfers,Gait,Other Rehab Potential Rehab Potential Good Plan PT Intervention Plan Bed Mobility,Transfers,Gait,Therapeutic Exercise,Other PT Plan Frequency Daily Duration LOS Discharge Goals Bed Transfer Ability Independent Sit to Stand Chair Independent Transfer Ability Ambulation Assistive None Device Ambulation Distance 30 (feet) Discharge Plan PT Discharge Plan Pt is currently most appropriate to return home once medically stable for d/c. Skilled acute therapy services are indicated to aid pt transfers, ambulation, and general mobility with less SOA in order to aid pt return to OF. Eval Complexity Eval Charge Codes 70321 - High Complexity PHYSICIAN CERTIFICATION: I certify the specified therapy services for Delia Buchanan are required, authorized, and reviewed every 30 days.
[2024-12-16] MEDS: ACETAMINOPHEN 325MG TAB 650 MG PO (19:34)
[2024-12-16] MEDS: FAMOTIDINE 20MG TABLET 40 MG PO (20:18)
[2024-12-16] MEDS: GABAPENTIN 600MG TABLET 600 MG PO (20:18)
[2024-12-16] MEDS: DOXYCYCLINE HYCL 100 MG TABLET PO (20:18)
--- NOTE | 2024-12-16 21:16 | EXP.EVENT.NO ---
Patient on ABG since this a.m., Will recheck ABG this evening and adjust oxygen accordingly. Patient currently on 5 L nasal cannula.
[2024-12-16 21:39] LABS: VBG HCO3 24.0 mmol/L (23-30); VBG PCO2 40.4 mmol/L (35-51); VBG PH 7.39 mmol/L (7.31-7.41); VBG PO2 45.5 mmol/L (28-40)
[2024-12-16 21:41] LABS: Lactate Venous 4.0 mmol/L (0.4-2.0)
[2024-12-16] MEDS: OXYCODONE 5MG IMMEDIATE RELEASE TABLET 5 MG PO (22:08)
[2024-12-17] VITALS (13 sets, daily range): BP systolic 123–165; BP diastolic 81–107; PULSE 62–100; RESP 14–20; TEMP 36.4–36.9; O2SAT 90–95; BMI 22.4
[2024-12-17 01:41] LABS: Reflex Lactic Add Lactic Reflex
[2024-12-17] MEDS: IPRATROPIUM BROMIDE 0.5 MG/2.5ML SOLUTION IH ×6 (02:01→21:58)
[2024-12-17] MEDS: LEVALBUTEROL 1.25MG/3ML NEB 1.25 MG IH ×6 (02:01→21:58)
--- NOTE | 2024-12-17 03:43 | PC.NURSE ---
Pt A&OX4. She has remained on 5l nasal cannula with 02 sats between 90-93%. Duonebs Q4 hours. She did complain of back pain once and was medicated per MAR. No other complaints at this time, call light within reach.
[2024-12-17] MEDS: OXYCODONE 5MG IMMEDIATE RELEASE TABLET 5 MG PO (06:03)
[2024-12-17] MEDS: BUDESONIDE 0.5MG/2ML NEB 0.5 MG IH ×2 (06:32→17:55)
[2024-12-17 08:07] LABS: Hematocrit 37.7 % (37.0-47.0); Hemoglobin 12.2 g/dL (12.2-16.2); Immature Granulocytes % 0.4 %; Mean Corpuscular HGB Conc 32.4 g/dL (31.8-35.4); Mean Corpuscular Hemoglobin 28.3 pg (27.0-31.2); Mean Corpuscular Volume 87.5 fl (81-99); Nucleated Red Blood Cells % 0 %; Platelet Count 329 K/mm3 (142-424); Red Blood Count 4.31 M/mm3 (4.20-5.40); Red Cell Distribution Width-SD 56.7 fL; White Blood Count 15.7 K/mm3 (4.8-10.8)
[2024-12-17 08:24] LABS: Lactic Acid Follow Up (RFLX 1) 1.5 mmol/L (0.7-2.1)
[2024-12-17 08:26] LABS: Alanine Aminotransferase 23 U/L (12-78); Albumin Level 4.0 g/dl (3.5-5.0); Albumin/Globulin Ratio 1.0 (1.1-1.8); Alkaline Phosphatase 127 U/L (38-126); Anion Gap 10.5 mEq/L (5-15); Aspartate Amino Transferase 37 U/L (14-36); Bilirubin,Total 0.4 mg/dl (0.2-1.3); Blood Urea Nitrogen 18 mg/dl (7-17); Calcium 9.1 mg/dl (8.4-10.2); Carbon Dioxide 26 mmol/L (22.0-30.0); Chloride 100 mmol/L (98-107); Cholesterol 174 mg/dl (140-200); Creatinine Clearance Estimated 68 mL/min (50-200); Creatinine,Serum 1.00 mg/dl (0.52-1.04); Estimated Glomerular Filt Rate 56 ml/min (>60); GFR (African American) 68 ML/MIN (>60); Globulin 4.1 g/dL (1.3-3.2); Glucose 109 mg/dl (74-100); HDL Cholesterol 62 mg/dl (40-60); Magnesium 2.0 mg/dl (1.6-2.3); Potassium 4.5 mmoL/L (3.5-5.1); Sodium 132 mmol/L (136-145); Total Protein,Serum 8.1 g/dl (6.3-8.2); Triglycerides 57 mg/dl (30-150)
[2024-12-17 09:13] LABS: Procalcitonin 0.051 ng/mL (0.0-2.0)
[2024-12-17] MEDS: AMIODARONE 200MG TABLET 200 MG PO (09:29)
[2024-12-17] MEDS: METOPROLOL SUCCINATE XL 100MG TABLET 100 MG PO (09:29)
[2024-12-17] MEDS: GABAPENTIN 600MG TABLET 600 MG PO ×2 (09:29→20:14)
[2024-12-17] MEDS: TORSEMIDE 20MG TABLET 20 MG PO (09:29)
[2024-12-17] MEDS: ASPIRIN EC 81MG TABLET 81 MG PO (09:29)
[2024-12-17] MEDS: LEVOTHYROXINE 50MCG (0.05MG) TAB 50 MCG PO (09:29)
[2024-12-17] MEDS: DOXYCYCLINE HYCL 100 MG TABLET PO ×2 (09:29→20:14)
[2024-12-17] MEDS: FAMOTIDINE 20MG TABLET 40 MG PO ×2 (09:30→20:14)
[2024-12-17 09:37] LABS: Thyroid Stimulating Hormone 5.54 uIU/mL (0.465-4.68)
[2024-12-17 09:51] LABS: Adenovirus,PCR Not Detected (NotDetected); Chlamydophila Pneumoniae, PCR Not Detected (NotDetected); Coronavirus 19, PCR Not Detected (NotDetected); Coronovirus HKU1,PCR Not Detected (NotDetected); Influenza A, PCR Not Detected (NotDetected); Influenza AH1, 2009 Not Detected (NotDetected); Influenza AH1, PCR Not Detected (NotDetected); Influenza AH3,PCR Not Detected (NotDetected); Influenza B, PCR Not Detected (NotDetected); Mycoplasma Pneumoniae, PCR Not Detected (NotDetected); Parainfluenza 1, PCR Not Detected (NotDetected); Parainfluenza 2, PCR Not Detected (NotDetected); Parainfluenza 3, PCR Not Detected (NotDetected); Parainfluenza 4, PCR Not Detected (NotDetected)
--- NOTE | 2024-12-17 10:33 | HMH.PHAINT1 ---
Pharmacy Intervention Comments: MEDICATION RECONCILIATION COMPLETED ON PATIENT USING EXTERNAL FILL HISTORY FROM PHARMACY AND LIST FROM CARDIOLOGY OFFICE. -DANDY SMITH, RADHAD
[2024-12-17] MEDS: CEFTRIAXONE 1 GM 1 GM in 0.9 % SODIUM CHLORIDE 50 ML IV (11:07)
[2024-12-17] MEDS: KETOROLAC 30MG/ML VIAL 30 MG IV (11:12)
--- OUTSIDE RECORDS SUMMARY | 2024-12-17 11:46 | XMS_ITS | Clinical Summary ---
Author Organization [facility] Address [address] [place] [address] Care Team Providers Care Cut Off Saw Operator Name Role Phone Diony Padron MD Unavailable Solange Mills APRN Primary Care Provider [phone] Allergies Active Allergy Reactions Criticality Noted Date [...] 08/19/2023 08/18/2013 Dental Oral Exam 09/14/2024 03/16/2024 [id number] Vaccine (3 - season) 2024 11/05/2020, 10/08/2020 [...] this topic Medical Devices Implanted Type Area General Inspector Device Identifier Shelf Expiration Date Model / [...] Narrative SUNQUEST - 08/11/2007 6:14 PM EDT [facility] MR #: [id number] [facility] [place], [place] [address] 1960 (Age: 46) FW Collect Date: 08/10/2007 00:00 Receipt Date: 08/10/2007 17:45 Page 1 DEPARTMENT OF PATHOLOGY AND LABORATORY MEDICINE CYTOPATHOLOGY REPORT Email: [email or web address] [phone] ATTENDING MD/Practitioner: Ana Hernandez MD Service: BCC [...] by staff pathologist: Osiel Dawn MD. / [place] Patient identification and site of aspirate were [...] ICD: 611.9 BREAST DISORDER NOS F: A; 54828 ASP INTER, 06794 FNA PATHO SNOMED CODES: A; G70748 M84396 [id number] A resident has participated in this service. A pathologist has performed and is responsible for the reported pathologic evaluation. us Historical Provider LAB PATHOLOGY ORDERABLES Fin al Result SUNQUEST from Last 3 Months or Most Recently Relevant to Health Maintenance Insurance [facility] [place] [facility] MEDICAID MEDICAID [facility] Care Teams Cut Off Saw Operator Relationship Specialty Start Date End Date Solange Mills APRN [address] [place] [address] PCP - General 08/30/24 Diony Padron MD [address] [place] [address] Consulting Physician Cardiology 03/16/24
--- OUTSIDE RECORDS SUMMARY | 2024-12-17 11:46 | XMS_ITS | Clinical Summary ---
Author Organization [facility] Address [address] [place], [place] [address] Phone Care Team Providers Care Storage Center Manager Name Role Phone Unavailable Primary Care Provider [...]
--- OUTSIDE RECORDS SUMMARY | 2024-12-17 11:46 | XMS_ITS | Clinical Summary ---
Author Organization [facility] Address [address] [place] [address] Phone Care Team Providers Care Automobile Brakes Bonder Name Role Phone Kasey Cowan RN Unavailable Unavailable Conditions or Problems Problem Name Problem Code Onset Date Status Entry Date Provider Comment Standard Description Annotate Effusion, right shoulder M25.411 (ICD-10-CM ) 08/12 Active 08/12 Selma Adán Effusion, right shoulder Persistent atrial fibrillation 787530017 (SNOMED CT) 08/12 Active 08/12 Selma Adán Persistent atrial fibrillation skilled nursing (current) use of anticoagulant s, Eliquis Z79.01 (ICD-10-CM ) 08/12 Active 08/12 Selma Adán skilled nursing (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 Septic arthritis, right shoulder (identify bacteria) (B96 codes) M00.811 (ICD-10-CM ) 08/12 Active 08/12 Selma Adán Arthritis due to other bacteria, right shoulder Cellulitis, shoulder, right 657228159 (SNOMED CT) 08/12 Active 08/12 Selma Adán Cellulitis of upper limb COPD 98259550 (SNOMED CT) 08/12 Active 08/12 Selma Adán Chronic obstructive pulmonary disease Benign Essential Hypertension 47235805 (SNOMED CT) 08/12 Active 08/12 Selma Adán Benign hypertension Nicotine dependence, cigarettes 11575421 (SNOMED CT) 08/12 Active 08/12 Selma Adán Cigarette smoker Nicotine dependence 15849923 (SNOMED CT) 08/12 Inactive 08/12 Gypsy Calina Nicotine dependence Medications Medication Instructions Start Date Stop Date Generic Name NDC Provider divina gary 2GM IV Q24hrs - [facility] divina Cowan RN ONDANSETRON HCL 4 MG TABS Take 1 tablet by mouth Every 6 (Six) Hours As Needed for Nausea or Vomiting for up to 7 days ondansetron hcl 05872583288 Elsie June LEVOTHYROXINE SODIUM 50 MCG TABS Take 1 tablet by mouth Daily levothyroxine 51595788014 Elsie June NALOXONE HCL 4 MG/0.1ML LIQD Call 911. Don't prime. [place] in 1 nostril for overdose. Repeat in 2-3 minutes in other nostril if no or minimal breathing/respo nsiveness naloxone 08855848970 Elsie June GABAPENTIN 600 MG TABS Take 1 tablet by mouth Daily. gabapentin 07322922435 Elsie June IRBESARTAN 75 MG TABS Take 1 tablet by mouth Daily irbesartan 32055447001 Elsie June OXYCODONE HCL 5 MG TABS Take 1 tablet by mouth Every 4 (Four) Hours As Needed for Moderate Pain oxycodone 14618515413 Elsie June PANTOPRAZOLE SODIUM 40 MG TBEC Take 1 tablet by mouth Daily pantoprazole 29664619861 Elsie June VENTOLIN HFA 108 (90 Base) MCG/ACT AERS Inhale 2 puffs Every 4 (Four) Hours As Needed for Wheezing or Shortness of Air. albuterol sulfate 25361043109 Elsie June SYMBICORT 160-4.5 MCG/ACT AERO Inhale 2 puffs 2 (Two) Times a Day budesonide-formo terol 55125046444 Elsie June FUROSEMIDE 20 MG TABS Take 1 tablet by mouth Daily. furosemide 59411887738 Elsie June ASPIRIN 81 MG TBEC Take 1 tablet by mouth Daily aspirin 03822623484 Elsie June ATORVASTATIN CALCIUM 40 MG TABS Take 1 tablet by mouth Every Night. atorvastatin 32559867689 Elsie June ALBUTEROL SULFATE 1.25 MG/3ML NEBU 3 mL Every 6 (Six) Hours As Needed for Wheezing or Shortness of Air albuterol sulfate 51528588394 Elsie June apixaban 5 mg tablet Take 1 tablet by mouth 2 (Two) Times a Day. HOLD 48 HOURS PRIOR TO SURGERY apixaban Elsie June CITALOPRAM HYDROBROMIDE 10 MG TABS Take 1 tablet by mouth Daily citalopram 26042054438 Elsie June DULOXETINE HCL 30 MG CPEP Take 1 capsule by mouth Daily. duloxetine 65638678579 Elsie June FAMOTIDINE 40 MG TABS Take 1 tablet by mouth 2 (Two) Times a Day. famotidine 12216598918 Elsie June DICLOFENAC SODIUM ER 100 MG [id number] Take 75 mg by mouth 2 (Two) Times a Day diclofenac sodium 34219091220 Elsie June DILTIAZEM HCL ER BEADS 240 MG [id number] Take 1 capsule by mouth 2 (Two) Times a Day diltiazem hcl 99294601513 Elsie June ceftriaxone recon soln 2GM IV Q24hrs - [facility] ceftriaxone recon soln Mimi Lopez [...] Procedures Code Procedure Name Date Entry Date [id number] CBC with Differential 2022 CPT-49798 CMP CPT-73629 C- reactive protein CPT-86676 Sedimentation Rate (ESR) 202 04/14/17 [id number] CBC with Differential 2022 CPT-97885 CMP CPT-22369 C- reactive protein CPT-26535 Sedimentation Rate (ESR) 202 04/14/12 CPT-sl STAT Labs CPT-78990 CMP CPT-27998 Sedimentation Rate (ESR) 202 04/14/05 CPT-76852 C- reactive protein [id number] CBC with Differential 2022 CPT-sl STAT Labs [...]
--- OUTSIDE RECORDS SUMMARY | 2024-12-17 11:46 | XMS_ITS | Clinical Summary ---
Author Organization [facility] Address [address] [place] [address] Care Team Providers Care Ballistics Teacher Name Role Phone Dahiana Ram APRN Primary Care Provider [phone] Allergies Active Allergy Reactions Criticality Noted Date [...] MG/0.1ML nasal spray Call 911. Don't prime. [place] in 1 nostril for overdose. Repeat in [...] history exists Medical Devices Implanted Type Area Office Sweeper Device Identifier Shelf Expiration Date Model / Serial / Lot Cmt Low/Viscos Cemex/Genta 40g - [id number] Implanted:Qty: 1 on 08/05/2022 by Melchor Gregory MD at [facility] Implant Right: Shoulder TECRES SPA 10/08/2025 1400AG / / [id number] Spacr Shldr Intrspc Kt Cemex Gent 41sm - [id number] - [id number] Implanted:Qty: 1 on 08/05/2022 by Melchor Gregory MD at [facility] Implant Right: Shoulder TECRES SPA 04/07/2026 [id number] / [id number] / Scrw Periph 5x34mm - [id number] Implanted:Qty: 2 on 10/07/2022 by Melchor Gregory MD at [facility] Implant Right: Shoulder TORNIER [id number] / / Scrw Aequalis Perform Periph 5x30mm - [id number] Implanted:Qty: 1 on 10/07/2022 by Melchor Gregory MD at [facility] Implant Right: Shoulder TORNIER [id number] / / Scrw Aequalis Perform Periph 5x26mm - [id number] Implanted:Qty: 1 on 10/07/2022 by Melchor Gregory MD at [facility] Implant Right: Shoulder TORNIER [id number] / / Post Shdlr Aequalis Perform Rev Prss/Fit Sht 7mm - [id number] - [id number] Implanted:Qty: 1 on 10/07/2022 by Melchor Gregory MD at [facility] Implant Right: Shoulder TORNIER [id number] 03/27/2027 [id number] / [id number] / Baseplt Shldr Aequalis Ful/Wedge Aug 15d 25mm - [id number] - [id number] Implanted:Qty: 1 on 10/07/2022 by Melchor Gregory MD at [facility] Implant Right: Shoulder TORNIER [id number] 08/29/2027 [id number] / [id number] / Glenosphere Shldr Ecntrc Inf Offst Pls3 39mm - [id number] - [id number] Implanted:Qty: 1 on 10/07/2022 by Melchor Gregory MD at [facility] Implant Right: Shoulder TORNIER [id number] 12/14/2024 [id number] / [id number] / Plug Bone Restr/Cmt Hum/Elbw 1om50y68wm - [id number] - [id number] Implanted:Qty: 1 on 10/07/2022 by Melchor Gregory MD at [facility] Implant Right: Shoulder TORNIER [id number] 03/17/2027 [id number] / [id number] / Stem Hum/Shldr Preform Lng Pls Sz2 19v36i3es - [id number] - [id number] Implanted:Qty: 1 on 10/07/2022 by Melchor Gregory MD at [facility] Implant Right: Shoulder TORNIER [id number] 06/27/2027 [id number] / [id number] / Cmt Bone Cmw2 20gm - [id number] Implanted:Qty: 2 on 10/07/2022 by Melchor Gregory MD at [facility] Implant Right: Shoulder DEPUY [id number] 12/08/2024 [id number] / / [id number] Insrt Hum/Shldr Perform Rev/10deg Sz1to2 39mm Pls/0 - [id number] - [id number] Implanted:Qty: 1 on 10/07/2022 by Melchor Gregory MD at [facility] Implant Right: Shoulder TORNIER 05/20/2027 [id number] / [id number] / Insurance [employer] MEDICAID [place] Advance Directives [...] Of Support Discussed With: Patient Care Teams Ballistics Teacher Relationship Specialty Start Date End Date Dahiana Ram APRN [address] [place] [address] PCP - General Nurse Practitioner 04/17/22
--- NOTE | 2024-12-17 11:49 | EXP.PN ---
Subjective *Date: 12/17/24 *Time: 11:49 Interval history: Patient is feeling better today, breathing easier. Every restriction, wheezing also improved today. But continues to have increased work of breathing. Exam Data for Last 24 hours Vital signs and Labs for Last 24 Hours: Temp Pulse Resp BP Pulse Ox O2 Del Method O2 Flow Rate 98.4 F 75 18 146/81 H 95 Nasal Cannula 3 12/17/24 08:00 12/17/24 11:12/17/24 08:00 12/17/24 08:00 12/17/24 11:12/17/24 11:12/17/24 11:25 Laboratory Results - last 24 hr 12/16/24 10:25: HCV Ab ALFRED w/Rflx PCR Qn Reactive, HIV Ag/Ab Combo Qual Negative 12/16/24 13:02: Troponin I < 0.01, C-Reactive Protein 40.3 H 12/16/24 17:20: Troponin I < 0.01 12/16/24 21:19: VBG pH 7.39, VBG pCO2 40.4, VBG pO2 45.5 H, VBG HCO3 24.0, VBG Total CO2 25.2, VBG O2 Saturation 82.8 H, VBG Base Excess -1.0, VBG Lactic Acid 4.0 H 12/17/24 07:10: WBC 15.7 H D, RBC 4.31, Hgb 12.2, Hct 37.7, MCV 87.5, MCH 28.3, MCHC 32.4, RDW 17.9 H, Plt Count 329, MPV 10.1, Neut % (Auto) 84.6 H, Lymph % (Auto) 6.5 L, [place] % (Auto) 8.3, Eos % (Auto) 0.0 L, Baso % (Auto) 0.2, Neut # (Auto) 13.3 H, Lymph # (Auto) 1.0, [place] # (Auto) 1.3 H, Eos # (Auto) 0.0, Baso # (Auto) 0.0, Sodium 132 L, Potassium 4.5, Chloride 100, Carbon Dioxide 26, Anion Gap 10.5, BUN 18 H D, Creatinine 1.00, Estimated Creat Clear 68, Estimated GFR 56 L, Est GFR ( Amer) 68, Glucose 109 H, Lactate 1.5, Calcium 9.1, Magnesium 2.0, Total Bilirubin 0.4, AST 37 H, ALT 23, Alkaline Phosphatase 127 H, Total Protein 8.1, Albumin 4.0 D, Globulin 4.1 H, Albumin/Globulin Ratio 1.0 L, Triglycerides 57, Cholesterol 174, LDL Cholesterol Direct 76.57 L, VLDL Cholesterol 11, HDL Cholesterol 62 H, Cholesterol/HDL Ratio 2.8, Procalcitonin 0.051, TSH 5.54 H 12/17/24 09:43: Chlamy pneumoniae PCR Not detected, Adenovirus (PCR) Not detected, B. pertussis DNA (PCR) Not detected, Coronavirus OC43 (PCR) Not detected, Coronavirus HKU1 (PCR) Not detected, Coronavirus 229E (PCR) Not detected, SARS-CoV-2 (PCR) Not detected, Coronavirus NL63 (PCR) Not detected, Human Metapneumovir PCR Not detected, Influenza A (H1) PCR Not detected, Influ A (H1N1/09) PCR Not detected, Influenza A (H3) PCR Not detected, Influenza Type A (PCR) Not detected, Influenza Type B (PCR) Not detected, M. pneumoniae (PCR) Not detected, Parainfluenza 1 (PCR) Not detected, Parainfluenza 2 (PCR) Not detected, Parainfluenza 3 (PCR) Not detected, Parainfluenza 4 (PCR) Not detected, RSV (PCR) Not detected, Entero/Rhino (PCR) Detected A I & O for Last 24 hours: Intake & Output 12/14/24 12/15/24 12/16/24 12/17/24 23:59 23:59 23:59 23:59 Intake Total 420 / 720 680 / 680 Output Total 820 / 820 600 / 600 Balance -400 / -100 80 / 80 Weight 72.575 kg 72.575 kg Microbiology Reports for the Last 24 Hours: Microbiology 12/16/24 11:09 Blood Blood Culture - Preliminary NO GROWTH AFTER 24 HOURS 12/16/24 10:25 Blood Blood Culture - Preliminary NO GROWTH AFTER 24 HOURS 12/16/24 19:15 Sputum - Expectorated Sputum Gram Stain - Final Constitutional Constitutional: no acute distress *Routine HEENT Exam Head: Present normocephalic Eye: Present EOMI and PERRL ENT: Present mucous membranes moist *Routine Neck Exam Neck: Present supple; Absent lymphadenopathy *Routine Respiratory Exam Respiratory: Present CTA bilaterally *Routine Cardiovascular Exam Cardiovascular: Present RRR *Routine Abdominal Exam Abdominal: Present soft and normoactive bowel sounds; Absent tenderness *Routine Extremities Exam Extremities: Absent cyanosis, clubbing or edema *Routine Skin Exam Skin: Present warm; Absent rash *Routine Neurological Exam Neurological: Present alert and oriented X3 Assessment and Plan *Assessment and plan (1) COPD exacerbation: Status: Acute Category: Medical Code(s): J44.1 - Chronic obstructive pulmonary disease with (acute) exacerbation Plan Delia Buchanan is a 63-year-old female with a medical history significant for COPD with 2 L as needed, a flutter on Xarelto, HFrEF, hypothyroidism, anxiety/depression, GERD who presents with progressive shortness of breath over the past few days, yellow productive cough. She states she was doing well prior to couple days ago, and has had progressive shortness of breath since then. No chest pain, abdominal pain, leg swelling. Workup in the ED significant for WBC 10.8, potassium 5.3, BNP 1060, negative for flu/COVID-19, troponins normal, CTA chest suggesting right lower lobe pneumonia, and possible PE. She was given ceftriaxone, DuoNebs, azithromycin, morphine, Zofran. She is also requiring 4 to 5 L nasal cannula continuously, which is a new requirement. Given this presentation, ED provider discussed case with me and decided to admit patient for acute on chronic hypoxic respiratory failure secondary to community-acquired pneumonia, and COPD exacerbation. #Acute on chronic hypoxic respiratory failure #Community-acquired pneumonia #COPD exacerbation ? Presented with progressive shortness of breath, increased yellow productive cough. CTA chest showing right lower lobe pneumonia. ? Initial WBC normal. No signs of sepsis. Did have a fever of 100.5. Follow-up CRP, procalcitonin. ? WBC bumped to 15.7 today, in the setting of steroids. Procalcitonin normal today. ? Patient is feeling better today, breathing easier. Every restriction, wheezing also improved today. But continues to have increased work of breathing. ? Continue IV ceftriaxone 1 g daily, doxycycline 100 mg twice daily. ? Continue levalbuterol, ipratropium every 4 hours and Pulmicort twice daily. ? Continue prednisone 40 mg day 2/5. ? Follow-up full respiratory panel. ? Patient is having left flank pain from coughing, started Toradol and oxycodone as needed. Does not want [place] due to nausea. ? Follow-up sputum, blood cultures. ? Weaned continue 3 L nasal cannula, baseline 2 L as needed. Wean as tolerated. ? Follow-up CBC, CRP in the morning. #A-flutter #Possible pulmonary embolism ? CTA suggests possible pulmonary embolism, patient states she has not been getting to take her Xarelto because it is not timed with her morning medications, rather in the afternoon. She has a current smoker which is a risk factor, does not take estrogen/progesterone. ? Currently rate controlled, continue home amiodarone 200 mg daily, metoprolol 100 mg twice daily. ? Started Xarelto 15 mg twice daily for 21 days, then 20 mg daily. #Chronic HFrEF ? Currently euvolemic. BNP 1060. ? Continue home torsemide 20 mg daily. Continue home spironolactone, metoprolol, hold home Jardiance due to illness to avoid dehydration. #Hypothyroidism ? Continue home levothyroxine 50 mcg. TSH elevated 5.54, follow-up free T4. #Anxiety/depression ? Continue home citalopram 10 mg. #Peripheral neuropathy ? Continue home gabapentin 600 mg twice daily. #GERD ? Continue home PPI, H2 iftikhar. Full code DVT prophylaxis: Home Xarelto Home medications: Restarted, hold few as above.
--- NOTE | 2024-12-17 12:02 | PC.NURSE ---
pt weaned to 3L NC. continuous pulse ox in place. O2 sat 96% at this time
[2024-12-17] MEDS: SPIRONOLACTONE 25MG TABLET 12.5 MG PO (12:49)
[2024-12-17] MEDS: OXYCODONE 10MG W/APAP 325MG TABLET 1 EACH PO ×2 (12:49→18:56)
[2024-12-17] MEDS: ACETAMINOPHEN 325MG TAB 650 MG PO (15:07)
--- NOTE | 2024-12-17 16:47 | PC.NURSE ---
Pt is A&Ox4. Vital signs stable requiring 4L NC to maintain oxygen sats above 90%. Pt weaned to 3L NC but c/o SOB so titrated back up to 4L NC. No further c/o SOB. Pt in droplet precautions for rhino. IV abx infused per APR. Pt complains of back pain and pain when coughing. PRN pain medication given per APR. Pt resting comfortably sitting up in bed with no further needs voiced at this time. Call light within reach. Bed alarm in place for safety.
[2024-12-17] MEDS: PANTOPRAZOLE 40MG TABLET 40 MG PO (20:14)
[2024-12-18] VITALS (9 sets, daily range): BP systolic 140–172; BP diastolic 92–104; PULSE 48–80; RESP 16–18; TEMP 36.4–36.9; O2SAT 93–98; BMI 23.6
[2024-12-18] MEDS: guaiFENesin 200MG/10ML SYRUP UDC 200 MG PO ×2 (00:21→20:32)
[2024-12-18] MEDS: LEVALBUTEROL 1.25MG/3ML NEB 1.25 MG IH ×2 (01:49→06:31)
[2024-12-18] MEDS: IPRATROPIUM BROMIDE 0.5 MG/2.5ML SOLUTION IH ×2 (01:49→06:31)
[2024-12-18] MEDS: OXYCODONE 10MG W/APAP 325MG TABLET 1 EACH PO ×3 (03:09→20:32)
--- NOTE | 2024-12-18 03:32 | PC.NURSE ---
Pt is A&OX4 and has remained on 4l nasal cannula. She did request something to help with her cough and was medicated per APR.She has also been medicated for side pain. She has ambulated with standby assist. No complaints at this time, call light within reach.
[2024-12-18] MEDS: LEVOTHYROXINE 50MCG (0.05MG) TAB 50 MCG PO (06:00)
[2024-12-18] MEDS: BUDESONIDE 0.5MG/2ML NEB 0.5 MG IH (06:31)
[2024-12-18 07:57] LABS: Hematocrit 36.7 % (37.0-47.0); Hemoglobin 11.4 g/dL (12.2-16.2); Immature Granulocytes % 0.4 %; Mean Corpuscular HGB Conc 31.1 g/dL (31.8-35.4); Mean Corpuscular Hemoglobin 27.5 pg (27.0-31.2); Mean Corpuscular Volume 88.4 fl (81-99); Nucleated Red Blood Cells % 0 %; Platelet Count 340 K/mm3 (142-424); Red Blood Count 4.15 M/mm3 (4.20-5.40); Red Cell Distribution Width-SD 58.0 fL; White Blood Count 16.5 K/mm3 (4.8-10.8)
[2024-12-18 08:05] LABS: Alanine Aminotransferase 30 U/L (12-78); Albumin Level 3.6 g/dl (3.5-5.0); Albumin/Globulin Ratio 0.9 (1.1-1.8); Alkaline Phosphatase 101 U/L (38-126); Anion Gap 13.3 mEq/L (5-15); Aspartate Amino Transferase 44 U/L (14-36); Bilirubin,Total 0.4 mg/dl (0.2-1.3); Blood Urea Nitrogen 30 mg/dl (7-17); Calcium 9.1 mg/dl (8.4-10.2); Carbon Dioxide 24 mmol/L (22.0-30.0); Chloride 101 mmol/L (98-107); Creatinine Clearance Estimated 65 mL/min (50-200); Creatinine,Serum 1.10 mg/dl (0.52-1.04); Estimated Glomerular Filt Rate 50 ml/min (>60); GFR (African American) 61 ML/MIN (>60); Globulin 3.8 g/dL (1.3-3.2); Glucose 89 mg/dl (74-100); Magnesium 1.7 mg/dl (1.6-2.3); Potassium 5.3 mmoL/L (3.5-5.1); Sodium 133 mmol/L (136-145); Total Protein,Serum 7.4 g/dl (6.3-8.2)
[2024-12-18] MEDS: FAMOTIDINE 20MG TABLET 40 MG PO ×2 (08:18→20:32)
[2024-12-18] MEDS: ASPIRIN EC 81MG TABLET 81 MG PO (08:18)
[2024-12-18] MEDS: AMIODARONE 200MG TABLET 200 MG PO (08:18)
[2024-12-18] MEDS: DOXYCYCLINE HYCL 100 MG TABLET PO (08:18)
[2024-12-18] MEDS: METOPROLOL SUCCINATE XL 100MG TABLET 100 MG PO (08:18)
[2024-12-18] MEDS: TORSEMIDE 20MG TABLET 20 MG PO (08:18)
[2024-12-18] MEDS: GABAPENTIN 600MG TABLET 600 MG PO ×2 (08:18→20:32)
[2024-12-18] MEDS: KETOROLAC 30MG/ML VIAL 30 MG IV (08:18)
[2024-12-18] MEDS: SPIRONOLACTONE 25MG TABLET 12.5 MG PO (08:19)
--- NOTE | 2024-12-18 09:40 | EXP.PULM.CON ---
History of Present Illness History of present illness: Ms. Buchanan is a 63-year-old female COPD chronic hypoxic respiratory failure heart failure reduced EF CAD atrial flutter presented here with worsening respiratory distress and pulmonary was called for further evaluation and management. [facility] Disclaimer: The information contained in this section may have been updated after the patient was seen, as this information can be updated by other users. Medical History (Updated 12/18/24 @ 12:01 by Eden Darling MD) Viral pneumonia Acute on chronic HFrEF (heart failure with reduced ejection fraction) Normal coronary arteries Unstable angina Atypical angina HFrEF (heart failure with reduced ejection fraction) Atrial flutter with rapid ventricular response Elevated liver enzymes Smoking greater than 30 pack years Dyspnea on exertion Pulmonary emphysema Dyspnea Afib Sinus bradycardia Chronic, continuous use of opioids Right rotator cuff tear Hypothyroidism Atrial fibrillation/flutter Pulmonary hypertension Hepatitis C Tobacco dependence (HFpEF) heart failure with preserved ejection fraction Hyperlipidemia Hypertension COPD (chronic obstructive pulmonary disease) Surgical History History of hysterectomy History of surgery on right wrist History of mandibular surgery History of left heart catheterization History of cholecystectomy S/P rotator cuff repair H/O splenectomy History of cardioversion Family History Mother Stroke Father Coronary artery disease Social History Smoking Status: Current every day smoker tobacco type: cigarettes packs per day: 1 years smoked: 40 second hand exposure: Yes alcohol intake: never substance use type: denies use current occupational status: unemployed and disabled Travel in the last 8 weeks?: None household members: none housing: house lives independently: Yes marital status: single number of children: 3 current occupation: Disabled caffeine: Yes additional social history: The patient is single and lives alone. She identifies her daughter Stephanie as her POA. She has 3 adult children. 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 She identifies a significant smoking history of 1 pack/day for 40 years and ongoing. She denies routine alcohol consumption. She identifies with the [employer]ational armaan. She elects a full code. Have you lived/traveled outside [place] in past 30 days?: No Contact w/someone who lives/traveled outside [place] past 30 days?: No Exposure to someone with infectious disease in past 14 days?: No Do you have a fever (greater than 100.4 F or 38 C)?: No Have you tested positive for COVID-19?: No Exposed to someone with COVID-19 in past 14 days?: No Do you have a sore throat?: No Do you have a cough?: No Do you have any weakness?: No Do you have any diarrhea?: No Are you experiencing any unusual bleeding?: No Do you have any muscle aches/pain?: No Do you have any abdominal pain?: No Are you experiencing loss of taste or smell?: No Review of Systems Constitutional Constitutional: Reports anorexia, Reports body ache(s) and Reports fatigue Eyes Eyes: Denies eye discharge, Denies dry eyes, Denies irritation and Denies itchy eyes ENT Ears, Nose, Mouth, and Throat: Denies epistaxis, Denies facial pain, Denies lip swelling and Denies throat swelling *Cardiovascular Cardiovascular: Reports dyspnea and Reports dyspnea on exertion *Respiratory Respiratory: Reports change in phlegm color, Reports chest congestion, Reports cough, Reports dyspnea, Reports dyspnea on exertion, Reports excessive phlegm production and Reports wheezing *Gastrointestinal Gastrointestinal: Denies abdominal pain, Denies belching and Denies cramping *Musculoskeletal Musculoskeletal: Reports back pain, Reports myalgias and Reports other (No small joint swelling or Pain) Psychiatric Psychiatric: Denies homicidal ideation and Denies suicidal ideation Endocrine Endocrine: Reports fatigue and Denies heat intolerance Hematologic/Lymphatic Hematologic/Lymphatic: Denies easy bleeding and Denies lymphadenopathy Allergic/Immunologic Allergic/Immunologic: Denies itchy eyes, Denies lip swelling, Denies throat swelling and Reports wheezing Pulmonology Exam Inpatient Vital signs and Labs for Last 24 Hours: Temp Pulse Resp BP Pulse Ox O2 Del Method O2 Flow Rate 98.2 F 68 16 167/104 H 93 L Nasal Cannula 2.5 12/18/24 07:21 12/18/24 07:21 12/18/24 07:21 12/18/24 07:21 12/18/24 07:21 12/18/24 07:21 12/18/24 07:21 Laboratory Results - last 24 hr 12/17/24 09:43: Chlamy pneumoniae PCR Not detected, Adenovirus (PCR) Not detected, B. pertussis DNA (PCR) Not detected, Coronavirus OC43 (PCR) Not detected, Coronavirus HKU1 (PCR) Not detected, Coronavirus 229E (PCR) Not detected, SARS-CoV-2 (PCR) Not detected, Coronavirus NL63 (PCR) Not detected, Human Metapneumovir PCR Not detected, Influenza A (H1) PCR Not detected, Influ A (H1N1/09) PCR Not detected, Influenza A (H3) PCR Not detected, Influenza Type A (PCR) Not detected, Influenza Type B (PCR) Not detected, M. pneumoniae (PCR) Not detected, Parainfluenza 1 (PCR) Not detected, Parainfluenza 2 (PCR) Not detected, Parainfluenza 3 (PCR) Not detected, Parainfluenza 4 (PCR) Not detected, RSV (PCR) Not detected, Entero/Rhino (PCR) Detected A 12/18/24 06:52: WBC 16.5 H, RBC 4.15 L, Hgb 11.4 L, Hct 36.7 L, MCV 88.4, MCH 27.5, MCHC 31.1 L, RDW 17.9 H, Plt Count 340, MPV 10.2, Neut % (Auto) 84.6 H, Lymph % (Auto) 9.9 L, [place] % (Auto) 5.0, Eos % (Auto) 0.0 L, Baso % (Auto) 0.1, Neut # (Auto) 14.0 H, Lymph # (Auto) 1.6, [place] # (Auto) 0.8, Eos # (Auto) 0.0, Baso # (Auto) 0.0, Sodium 133 L, Potassium 5.3 H, Chloride 101, Carbon Dioxide 24, Anion Gap 13.3, BUN 30 H D, Creatinine 1.10 H, Estimated Creat Clear 65, Estimated GFR 50 L, Est GFR ( Amer) 61, Glucose 89, Calcium 9.1, Magnesium 1.7 D, Total Bilirubin 0.4, AST 44 H, ALT 30 D, Alkaline Phosphatase 101, Total Protein 7.4, Albumin 3.6, Globulin 3.8 H, Albumin/Globulin Ratio 0.9 L I & O for Labs for Last 24 Hours: Intake & Output 12/15/24 12/16/24 12/17/24 12/18/24 23:59 23:59 23:59 23:59 Intake Total 420 / 720 1580 / 1580 240 / 240 Output Total 820 / 820 1250 / 1250 Balance -400 / -100 330 / 330 240 / 240 Weight 160 lb 160 lb 168 lb 9.6 oz Microbiology Reports for the Last 24 Hours: Microbiology 12/16/24 19:15 Sputum - Expectorated Sputum Gram Stain - Final 12/16/24 19:15 Sputum - Expectorated Sputum Sputum Culture - Preliminary Gram Negative Rods 12/16/24 11:09 Blood Blood Culture - Preliminary NO GROWTH AFTER 24 HOURS 12/16/24 10:25 Blood Blood Culture - Preliminary NO GROWTH AFTER 24 HOURS Constitutional: Present mild distress Head: Present normocephalic and atraumatic ENT: Present normal exam, normal oropharynx and mucous membranes moist Neck: Present normal inspection and full ROM Respiratory: Present respiratory distress and able to speak in complete sentences; Absent prolonged expiratory phase or wheezes Cardiac: Present S1/S2, Tachycardia and radial pulses present GI: Present soft and distention; Absent tenderness or guarding Rectal (female): Present deferred (female): Present deferred Skin: Present intact; Absent cyanosis or jaundice Neuro: Present alert, awake and oriented x 3 Extremities: Present normal inspection; Absent clubbing or cyanosis Psychiatric: Present normal affect and cooperative Meds Home Medications and Allergies Home Medications ?Medication ?Instructions ?Recorded ?Confirmed ?Type pantoprazole 40 mg tablet,delayed 40 mg PO DAILY GERD #90 tabs 03/04/21 12/16/24 Rx release citalopram 10 mg tablet 10 mg PO DAILY 03/01/22 12/16/24 History diclofenac sodium 1 % topical gel 1 ea topical QIDP PRN Mild Pain 03/01/22 12/16/24 History (Scale Score 1-4) levothyroxine 50 mcg tablet 50 mcg PO DAILY 03/01/22 12/16/24 History famotidine 40 mg tablet 40 mg PO BID acid reflux #60 tabs 01/28/23 12/16/24 Rx diclofenac sodium 75 mg 75 mg PO BIDP PRN Mild Pain (Scale 04/13/23 12/17/24 History tablet,delayed release Score 1-4) lidocaine 5 % topical patch 1 patch topical DAILY 04/13/23 12/16/24 History (Lidoderm) fluticasone fur. 100 mcg-umeclid 1 inh inhalation DAILY 30 days #60 10/29/23 12/16/24 Rx 62.5 mcg-vilant 25 mcg ea inhalat.powder (Trelegy Ellipta) gabapentin 600 mg tablet 600 mg PO BID 01/23/24 12/16/24 History atorvastatin 40 mg tablet 40 mg PO HS Cholesterol #30 tabs 03/29/24 12/16/24 Rx empagliflozin 10 mg tablet 10 mg PO DAILY #30 tabs 03/29/24 12/16/24 Rx (Jardiance) metoprolol succinate 100 mg 100 mg PO BID 30 days #60 tabs 03/29/24 12/16/24 Rx tablet,extended release 24 hr rivaroxaban 20 mg tablet (Xarelto) 20 mg PO QPMWITHMEAL #30 tabs 03/29/24 12/16/24 Rx spironolactone 25 mg tablet 12.5 mg (1/2 x 25 mg) PO DAILY 30 03/29/24 12/16/24 Rx days #30 tabs torsemide 20 mg tablet 20 mg PO DAILY 30 days #30 tabs 03/29/24 12/16/24 Rx albuterol sulfate 90 mcg/actuation 1 puff inhalation Q4HP PRN 12/16/24 12/17/24 History aerosol inhaler (Ventolin HFA) Shortness Of Breath amiodarone 200 mg tablet 200 mg PO DAILY 12/17/24 12/17/24 History aspirin 81 mg tablet,delayed 81 mg PO DAILY 12/17/24 12/17/24 History release duloxetine 30 mg capsule,delayed 30 mg PO DAILY 12/17/24 12/17/24 History release New Prescriptions to Start Prescriptions: Allergies Allergy/AdvReac Type Severity Reaction Status Date / Time codeine Allergy Mild Nausea Verified 04/26/24 15:05 penicillin G (PENICILLIN G) Allergy Mild I-RASH/NV Verified 04/26/24 15:05 acetaminophen (ACETAMINOPHEN) AdvReac Mild NOT Verified 04/26/24 15:05 ALLERGIC. NEED TO WATCH DUE TO LIVER Results Laboratory Findings 12/18/24 06:52 12/18/24 06:52 Abnormal lab findings: Abnormal Labs 12/16/24 12/16/24 12/16/24 10: 10:28 13:02 WBC RBC 4.12 L Hgb 11.6 L Hct 36.3 L MCHC RDW 18.6 H Neut % (Auto) Lymph % (Auto) [place] % (Auto) 10.1 H Eos % (Auto) Neut # (Auto) 7.9 H [place] # (Auto) 1.1 H VBG pCO2 52.9 H VBG pO2 VBG Total CO2 30.2 H VBG O2 Saturation VBG Base Excess 2.9 H VBG Lactic Acid Sodium Potassium 5.3 H Carbon Dioxide 31 H BUN Creatinine Estimated GFR Glucose AST Alkaline Phosphatase C-Reactive Protein 40.3 H NT-Pro-B Natriuret Pep 1060 H Globulin 3.3 H Albumin/Globulin Ratio LDL Cholesterol Direct HDL Cholesterol TSH Entero/Rhino (PCR) 12/16/24 12/17/24 12/17/24 21:19 07:10 09:43 WBC 15.7 H D RBC Hgb Hct MCHC RDW 17.9 H Neut % (Auto) 84.6 H Lymph % (Auto) 6.5 L [place] % (Auto) Eos % (Auto) 0.0 L Neut # (Auto) 13.3 H [place] # (Auto) 1.3 H VBG pCO2 VBG pO2 45.5 H VBG Total CO2 VBG O2 Saturation 82.8 H VBG Base Excess VBG Lactic Acid 4.0 H Sodium 132 L Potassium Carbon Dioxide BUN 18 H D Creatinine Estimated GFR 56 L Glucose 109 H AST 37 H Alkaline Phosphatase 127 H C-Reactive Protein NT-Pro-B Natriuret Pep Globulin 4.1 H Albumin/Globulin Ratio 1.0 L LDL Cholesterol Direct 76.57 L HDL Cholesterol 62 H TSH 5.54 H Entero/Rhino (PCR) Detected A 12/18/24 06:52 WBC 16.5 H RBC 4.15 L Hgb 11.4 L Hct 36.7 L MCHC 31.1 L RDW 17.9 H Neut % (Auto) 84.6 H Lymph % (Auto) 9.9 L [place] % (Auto) Eos % (Auto) 0.0 L Neut # (Auto) 14.0 H [place] # (Auto) VBG pCO2 VBG pO2 VBG Total CO2 VBG O2 Saturation VBG Base Excess VBG Lactic Acid Sodium 133 L Potassium 5.3 H Carbon Dioxide BUN 30 H D Creatinine 1.10 H Estimated GFR 50 L Glucose AST 44 H Alkaline Phosphatase C-Reactive Protein NT-Pro-B Natriuret Pep Globulin 3.8 H Albumin/Globulin Ratio 0.9 L LDL Cholesterol Direct HDL Cholesterol TSH Entero/Rhino (PCR) Assessment and Plan *Assessment and plan (1) PNA (pneumonia): Status: Acute Qualifiers: Laterality: unspecified laterality Lung location: unspecified part of lung Pneumonia type: due to unspecified organism Qualified Code(s): J18.9 - Pneumonia, unspecified organism Category: Medical Code(s): J18.9 - Pneumonia, unspecified organism (2) Acute and chronic respiratory failure with hypoxia: Status: Resolved Category: Medical Code(s): J96.21 - Acute and chronic respiratory failure with hypoxia (3) Viral pneumonia: Status: Acute Category: Medical Code(s): J12.9 - Viral pneumonia, unspecified Plan Ms. Buchanan is a 63-year-old female COPD chronic hypoxic respiratory failure heart failure reduced EF CAD atrial flutter presented here with worsening respiratory distress and pulmonary was called for further evaluation and management. Afebrile. Hemodynamically stable. Neutrophilic prominent leukocytosis. CTA upon admission no evidence of pulmonary embolism. No dense consolidative airspace changes. Patchy airspace disease minimal in right lower lobe. Respiratory viral PCR panel positive for rhinovirus. sputum culture with gram-negative rods moderate. Previous sputum cultures Enterobacter and stenotrophomonas. Enterobacter resistant to levofloxacin. Using oxygen supplementation on as-needed basis. Plan: Continue oxygen supplementation to maintain O2 saturation below 90% and above, currently on 2 L Trelegy 100 inhaler along with DuoNebs 4 times daily as needed Follow-up final sputum culture results , follow-up chest x-ray and further determine the possibility of de-escalating her antibiotics prior to final culture results. Thank you for involving pulmonary in this patient care. Will continue to follow.
[2024-12-18 10:17] LABS: C-Reactive Protein 29.4 mg/L (0-4)
[2024-12-18 10:23] LABS: Free T4 (Free Thyroxine) 0.80 ng/dl (0.78-2.19)
[2024-12-18] MEDS: CEFTRIAXONE 1 GM 1 GM in 0.9 % SODIUM CHLORIDE 50 ML IV (11:57)
--- NOTE | 2024-12-18 12:00 | XR_ITS ---
FINAL REPORT CLINICAL HISTORY: PNM COMPARISON: 01/23/2024 FINDINGS: A single frontal view the chest was obtained. No acute pulmonary opacity is present. There is no evidence of effusion or pneumothorax. Mediastinum is unremarkable. Heart size is normal. IMPRESSION: No acute abnormality. Reviewed, Interpreted and Dictated by Thomas Weston MD Transcribed by Delisa Oliveira Authenticated and [facility]
[2024-12-18 13:22] LABS: MRSA DNA PCR Positive (Negative)
[2024-12-18] MEDS: LEVOFLOXACIN/D5W 750 MG/150 ML 750 MG/150 ML PIGGYBACK 100 MG IV (13:34)
--- NOTE | 2024-12-18 16:30 | P.PN_ITS ---
Subjective *Date: 12/18/24 *Time: 16:30 Interval history: Patient states she still feels slightly better today, breathing easier. Continues to have restricted airway with moderate diffuse wheezing. High risk of decompensation given comorbidities. Exam Data for Last 24 hours Vital signs and Labs for Last 24 Hours: Temp Pulse Resp BP Pulse Ox O2 Del Method O2 Flow Rate 98.3 F 73 18 160/92 H 93 L Nasal Cannula 2.5 12/18/24 12:00 12/18/24 12:00 12/18/24 12:00 12/18/24 12:00 12/18/24 12:00 12/18/24 15:00 12/18/24 15:00 Laboratory Results - last 24 hr 12/16/24 17:42: MRSA (PCR) Positive A 12/18/24 06:52: WBC 16.5 H, RBC 4.15 L, Hgb 11.4 L, Hct 36.7 L, MCV 88.4, MCH 27.5, MCHC 31.1 L, RDW 17.9 H, Plt Count 340, MPV 10.2, Neut % (Auto) 84.6 H, Lymph % (Auto) 9.9 L, [place] % (Auto) 5.0, Eos % (Auto) 0.0 L, Baso % (Auto) 0.1, Neut # (Auto) 14.0 H, Lymph # (Auto) 1.6, [place] # (Auto) 0.8, Eos # (Auto) 0.0, Baso # (Auto) 0.0, Sodium 133 L, Potassium 5.3 H, Chloride 101, Carbon Dioxide 24, Anion Gap 13.3, BUN 30 H D, Creatinine 1.10 H, Estimated Creat Clear 65, Estimated GFR 50 L, Est GFR ( Amer) 61, Glucose 89, Calcium 9.1, Magnesium 1.7 D, Total Bilirubin 0.4, AST 44 H, ALT 30 D, Alkaline Phosphatase 101, Total Protein 7.4, Albumin 3.6, Globulin 3.8 H, Albumin/Globulin Ratio 0.9 L 12/18/24 09:20: C-Reactive Protein 29.4 H D, Free T4 0.80 I & O for Last 24 hours: Intake & Output 11/07/25 11/08/25 11/09/25 11/10/25 23:59 23:59 23:59 23:59 Intake Total 420 / 720 1580 / 1580 590 / 590 Output Total 820 / 820 1250 / 1250 600 / 600 Balance -400 / -100 330 / 330 -10 / -10 Weight 72.575 kg 72.575 kg 76.476 kg Microbiology Reports for the Last 24 Hours: Microbiology 12/16/24 11:09 Blood Blood Culture - Preliminary NO GROWTH AFTER 48 HOURS 12/16/24 10:25 Blood Blood Culture - Preliminary NO GROWTH AFTER 48 HOURS 12/16/24 19:15 Sputum - Expectorated Sputum Gram Stain - Final 12/16/24 19:15 Sputum - Expectorated Sputum Sputum Culture - Preliminary Gram Negative Rods Constitutional Constitutional: no acute distress *Routine HEENT Exam Head: Present normocephalic Eye: Present EOMI and PERRL ENT: Present mucous membranes moist *Routine Neck Exam Neck: Present supple; Absent lymphadenopathy *Routine Respiratory Exam Respiratory: Present wheezes; Absent CTA bilaterally *Routine Cardiovascular Exam Cardiovascular: Present RRR *Routine Abdominal Exam Abdominal: Present soft and normoactive bowel sounds; Absent tenderness *Routine Extremities Exam Extremities: Absent cyanosis, clubbing or edema *Routine Skin Exam Skin: Present warm; Absent rash *Routine Neurological Exam Neurological: Present alert and oriented X3 Assessment and Plan *Assessment and plan (1) COPD exacerbation: Status: Acute Category: Medical Code(s): J44.1 - Chronic obstructive pulmonary disease with (acute) exacerbation Plan Delia Buchanan is a 63-year-old female with a medical history significant for COPD with 2 L as needed, a flutter on Xarelto, HFrEF, hypothyroidism, anxiety/depression, GERD who presents with progressive shortness of breath over the past few days, yellow productive cough. She states she was doing well prior to couple days ago, and has had progressive shortness of breath since then. No chest pain, abdominal pain, leg swelling. Workup in the ED significant for WBC 10.8, potassium 5.3, BNP 1060, negative for flu/COVID-19, troponins normal, CTA chest suggesting right lower lobe pneumonia, and possible PE. She was given ceftriaxone, DuoNebs, azithromycin, morphine, Zofran. She is also requiring 4 to 5 L nasal cannula continuously, which is a new requirement. Given this presentation, ED provider discussed case with me and decided to admit patient for acute on chronic hypoxic respiratory failure secondary to community-acquired pneumonia, and COPD exacerbation. #Acute on chronic hypoxic respiratory failure #Community-acquired pneumonia #COPD exacerbation #Rhinovirus infection ? Presented with progressive shortness of breath, increased yellow productive cough. CTA chest showing right lower lobe pneumonia. Full respiratory panel positive for rhinovirus. ? Initial WBC normal. No signs of sepsis. Did have a fever of 100.5. Follow- up CRP, procalcitonin. ? WBC bumped from 15.7-16.5 today, in the setting of steroids. CRP down to 29.4 today. ? Patient is feeling slightly better today, breathing easier. However, contin ues to have increased work of breathing with diffuse moderate wheezing. Requiring new 3 L nasal cannula. High risk of decompensation given comorbidities. ? Transition to levofloxacin 750 mg daily after discussion with pulmonology due to resistant sputum cultures in the past. Discontinue ceftriaxone, doxycycline. ? MRSA nare positive, continue to monitor. Could be chronic colonizer. No history of MRSA culture. ? Transition to Trelegy 100, DuoNebs as needed ? Continue prednisone 40 mg day 3/5. ? Patient is having left flank pain from coughing, started Toradol and oxycodone as needed. Does not want [place] due to nausea. Also does not want muscle relaxants. ? Follow-up sputum, blood cultures. ? Weaned continue 3 L nasal cannula, baseline 2 L as needed. Wean as tolerated. ? Follow-up CBC, CRP in the morning. #A-flutter #Suspected pulmonary embolism ? CTA suggests pulmonary embolism, patient states she has not been getting to take her Xarelto because it is not timed with her morning medications, rather in the afternoon. She has a current smoker which is a risk factor, does not take estrogen/progesterone. ? Currently rate controlled, continue home amiodarone 200 mg daily, metoprolol 100 mg twice daily. ? Continue Xarelto 15 mg twice daily for a total of 21 days, then 20 mg daily. #Chronic HFpEF ? Currently euvolemic. BNP 1060. ECHO March 2024 showed recovered LVEF 55%. Nonischemic cardiomyopathy. ? Continue home torsemide 20 mg daily. Continue home spironolactone, metoprolol, hold home Jardiance due to illness to avoid dehydration. #Hypothyroidism ? TSH elevated 5.54, free T4 low normal. Patient has been taking her levothyroxine every day on an empty stomach. ? Increased levothyroxine from 50 to 75 mcg. #Anxiety/depression ? Continue home citalopram 10 mg. #Peripheral neuropathy ? Continue home gabapentin 600 mg twice daily. #GERD ? Continue home PPI, H2 iftikhar. Full code DVT prophylaxis: Home Xarelto Home medications: Restarted, hold few as above.
[2024-12-18] MEDS: PANTOPRAZOLE 40MG TABLET 40 MG PO (20:32)
[2024-12-19] VITALS (9 sets, daily range): BP systolic 138–195; BP diastolic 92–103; PULSE 54–85; RESP 14–18; TEMP 36.4–37.1; O2SAT 90–96; BMI 22.9
[2024-12-19] MEDS: guaiFENesin 200MG/10ML SYRUP UDC 200 MG PO ×3 (03:37→13:56)
[2024-12-19] MEDS: IPRATROPIUM/ALBUTEROL 3 ML NEB IH ×3 (03:44→11:02)
[2024-12-19] MEDS: LEVOTHYROXINE 50MCG (0.05MG) TAB 75 MCG PO (06:12)
[2024-12-19] MEDS: OXYCODONE 10MG W/APAP 325MG TABLET 1 EACH PO ×2 (06:46→13:56)
[2024-12-19 06:52] LABS: Hematocrit 37.9 % (37.0-47.0); Hemoglobin 11.7 g/dL (12.2-16.2); Immature Granulocytes % 0.4 %; Mean Corpuscular HGB Conc 30.9 g/dL (31.8-35.4); Mean Corpuscular Hemoglobin 27.1 pg (27.0-31.2); Mean Corpuscular Volume 87.9 fl (81-99); Nucleated Red Blood Cells % 0.2 %; Platelet Count 349 K/mm3 (142-424); Red Blood Count 4.31 M/mm3 (4.20-5.40); Red Cell Distribution Width-SD 56.8 fL; White Blood Count 10.1 K/mm3 (4.8-10.8)
[2024-12-19] MEDS: FLUTICASONE/UMECLIDIN/VILANTER 100/62.5/25MCG INHALER 1 PUFF IH (06:55)
[2024-12-19 06:57] LABS: Alanine Aminotransferase 33 U/L (12-78); Albumin Level 3.7 g/dl (3.5-5.0); Albumin/Globulin Ratio 0.9 (1.1-1.8); Alkaline Phosphatase 112 U/L (38-126); Anion Gap 9.6 mEq/L (5-15); Aspartate Amino Transferase 36 U/L (14-36); Bilirubin,Total 0.3 mg/dl (0.2-1.3); Blood Urea Nitrogen 37 mg/dl (7-17); Calcium 8.8 mg/dl (8.4-10.2); Carbon Dioxide 33 mmol/L (22.0-30.0); Chloride 96 mmol/L (98-107); Creatinine Clearance Estimated 58 mL/min (50-200); Creatinine,Serum 1.20 mg/dl (0.52-1.04); Estimated Glomerular Filt Rate 46 ml/min (>60); GFR (African American) 55 ML/MIN (>60); Globulin 4.0 g/dL (1.3-3.2); Glucose 124 mg/dl (74-100); Magnesium 1.7 mg/dl (1.6-2.3); Potassium 4.6 mmoL/L (3.5-5.1); Sodium 134 mmol/L (136-145); Total Protein,Serum 7.7 g/dl (6.3-8.2)
[2024-12-19 07:23] LABS: C-Reactive Protein 15.1 mg/L (0-4)
[2024-12-19] MEDS: GABAPENTIN 600MG TABLET 600 MG PO (08:01)
[2024-12-19] MEDS: AMIODARONE 200MG TABLET 200 MG PO (08:01)
[2024-12-19] MEDS: ASPIRIN EC 81MG TABLET 81 MG PO (08:01)
[2024-12-19] MEDS: METOPROLOL SUCCINATE XL 100MG TABLET 100 MG PO (08:01)
[2024-12-19] MEDS: SPIRONOLACTONE 25MG TABLET 12.5 MG PO (08:01)
[2024-12-19] MEDS: TORSEMIDE 20MG TABLET 20 MG PO (08:02)
[2024-12-19] MEDS: FAMOTIDINE 20MG TABLET 40 MG PO (08:02)
--- NOTE | 2024-12-19 09:33 | P.PN_ITS ---
Subjective *Date: 12/19/24 *Time: 12:27 Interval history: No acute respiratory vents overnight. Admits worsening wheezing episode this morning improved after nebulization therapy. Pulmonology Exam Inpatient Vital signs and Labs for Last 24 Hours: Temp Pulse Resp BP Pulse Ox O2 Del Method O2 Flow Rate 98.7 F 70 14 178/95 H 93 L Nasal Cannula 3 12/19/24 07:59 12/19/24 08:00 12/19/24 07:59 12/19/24 07:59 12/19/24 07:59 12/19/24 07:59 12/19/24 07:59 Laboratory Results - last 24 hr 12/16/24 17:42: MRSA (PCR) Positive A 12/18/24 09:20: C-Reactive Protein 29.4 H D, Free T4 0.80 12/19/24 06:18: WBC 10.1 D, RBC 4.31, Hgb 11.7 L, Hct 37.9, MCV 87.9, MCH 27.1, MCHC 30.9 L, RDW 17.6 H, Plt Count 349, MPV 9.9, Neut % (Auto) 79.1, Lymph % (Auto) 13.5, [place] % (Auto) 6.9, Eos % (Auto) 0.0 L, Baso % (Auto) 0.1, Neut # (Auto) 8.0 H, Lymph # (Auto) 1.4, [place] # (Auto) 0.7, Eos # (Auto) 0.0, Baso # (Auto) 0.0, Sodium 134 L, Potassium 4.6, Chloride 96 L, Carbon Dioxide 33 H, Anion Gap 9.6, BUN 37 H, Creatinine 1.20 H, Estimated Creat Clear 58, Estimated GFR 46 L, Est GFR ( Amer) 55 L, Glucose 124 H D, Calcium 8.8, Magnesium 1.7, Total Bilirubin 0.3, AST 36, ALT 33, Alkaline Phosphatase 112, C-Reactive Protein 15.1 H D, Total Protein 7.7, Albumin 3.7, Globulin 4.0 H, Albumin/Globulin Ratio 0.9 L Temp Pulse Resp BP Pulse Ox O2 Del Method O2 Flow Rate 98.2 F 68 16 167/104 H 93 L Nasal Cannula 2.5 12/18/24 07:21 12/18/24 07:21 12/18/24 07:21 12/18/24 07:21 12/18/24 07:21 12/18/24 07:21 12/18/24 07:21 Laboratory Results - last 24 hr 12/17/24 09:43: Chlamy pneumoniae PCR Not detected, Adenovirus (PCR) Not detected, B. pertussis DNA (PCR) Not detected, Coronavirus OC43 (PCR) Not detected, Coronavirus HKU1 (PCR) Not detected, Coronavirus 229E (PCR) Not detected, SARS-CoV-2 (PCR) Not detected, Coronavirus NL63 (PCR) Not detected, Human Metapneumovir PCR Not detected, Influenza A (H1) PCR Not detected, Influ A (H1N1/) PCR Not detected, Influenza A (H3) PCR Not detected, Influenza Type A (PCR) Not detected, Influenza Type B (PCR) Not detected, M. pneumoniae (PCR) Not detected, Parainfluenza 1 (PCR) Not detected, Parainfluenza 2 (PCR) Not detec ashley, Parainfluenza 3 (PCR) Not detected, Parainfluenza 4 (PCR) Not detected, RSV (PCR) Not detected, Entero/Rhino (PCR) Detected A 12/18/24 06:52: WBC 16.5 H, RBC 4.15 L, Hgb 11.4 L, Hct 36.7 L, MCV 88.4, MCH 27.5, MCHC 31.1 L, RDW 17.9 H, Plt Count 340, MPV 10.2, Neut % (Auto) 84.6 H, Lymph % (Auto) 9.9 L, [place] % (Auto) 5.0, Eos % (Auto) 0.0 L, Baso % (Auto) 0.1, Neut # (Auto) 14.0 H, Lymph # (Auto) 1.6, [place] # (Auto) 0.8, Eos # (Auto) 0.0, Baso # (Auto) 0.0, Sodium 133 L, Potassium 5.3 H, Chloride 101, Carbon Dioxide 24, Anion Gap 13.3, BUN 30 H D, Creatinine 1.10 H, Estimated Creat Clear 65, Estimated GFR 50 L, Est GFR ( Amer) 61, Glucose 89, Calcium 9.1, Magnesium 1.7 D, Total Bilirubin 0.4, AST 44 H, ALT 30 D, Alkaline Phosphatase 101, Total Protein 7.4, Albumin 3.6, Globulin 3.8 H, Albumin/Globulin Ratio 0.9 L I & O for Labs for Last 24 Hours: Intake & Output 12/16/24 12/17/24 12/18/24 12/19/24 23:59 23:59 23:59 23:59 Intake Total 420 / 720 1580 / 1580 1060 / 1060 300 / 300 Output Total 820 / 820 1250 / 1250 1500 / 1500 0 / 0 Balance -400 / -100 330 / 330 -440 / -440 300 / 300 Weight 160 lb 160 lb 168 lb 9.6 oz 163 lb 14.4 oz Intake & Output 12/15/24 12/16/24 12/17/24 12/18/24 23:59 23:59 23:59 23:59 Intake Total 420 / 720 1580 / 1580 240 / 240 Output Total 820 / 820 1250 / 1250 Balance -400 / -100 330 / 330 240 / 240 Weight 160 lb 160 lb 168 lb 9.6 oz Microbiology Reports for the Last 24 Hours: Microbiology 12/16/24 19:15 Sputum - Expectorated Sputum Gram Stain - Final 12/16/24 19:15 Sputum - Expectorated Sputum Sputum Culture - Final Pseudomonas aeruginosa 12/16/24 11:09 Blood Blood Culture - Preliminary NO GROWTH AFTER 48 HOURS 12/16/24 10:25 Blood Blood Culture - Preliminary NO GROWTH AFTER 48 HOURS Microbiology 12/16/24 19:15 Sputum - Expectorated Sputum Gram Stain - Final 12/16/24 19:15 Sputum - Expectorated Sputum Sputum Culture - Preliminary Gram Negative Rods 12/16/24 11:09 Blood Blood Culture - Preliminary NO GROWTH AFTER 24 HOURS 12/16/24 10:25 Blood Blood Culture - Preliminary NO GROWTH AFTER 24 HOURS Constitutional: Present mild distress Head: Present normocephalic and atraumatic ENT: Present normal exam, normal oropharynx and mucous membranes moist Neck: Present normal inspection and full ROM Respiratory: Present respiratory distress, wheezes and able to speak in complete sentences; Absent prolonged expiratory phase Cardiac: Present S1/S2, Tachycardia and radial pulses present GI: Present soft and distention; Absent tenderness or guarding Rectal (female): Present deferred (female): Present deferred Skin: Present intact; Absent cyanosis or jaundice Neuro: Present alert, awake and oriented x 3 Extremities: Present normal inspection; Absent clubbing or cyanosis Psychiatric: Present normal affect and cooperative Assessment and Plan *Assessment and plan (1) PNA (pneumonia): Status: Acute Qualifiers: Laterality: unspecified laterality Lung location: unspecified part of lung Pneumonia type: due to unspecified organism Qualified Code(s): J18.9 - Pneumonia, unspecified organism Category: Medical Code(s): J18.9 - Pneumonia, unspecified organism (2) Acute and chronic respiratory failure with hypoxia: Status: Resolved Category: Medical Code(s): J96.21 - Acute and chronic respiratory failure with hypoxia (3) Viral pneumonia: Status: Acute Category: Medical Code(s): J12.9 - Viral pneumonia, unspecified Plan Ms. Buchanan is a 63-year-old female COPD chronic hypoxic respiratory failure heart failure reduced EF CAD atrial flutter presented here with worsening respiratory distress and pulmonary was called for further evaluation and management. Afebrile. Hemodynamically stable. Neutrophilic prominent leukocytosis. CTA upon admission no evidence of pulmonary embolism. No dense consolidative airspace changes. Patchy airspace disease minimal in right lower lobe. Respiratory viral PCR panel positive for rhinovirus. sputum culture with gram- negative rods moderate. Previous sputum cultures Enterobacter and stenotrophomonas. Enterobacter resistant to levofloxacin. Using oxygen supplementation on as-needed basis. Interval update: No acute respiratory vents overnight. Inhalers weaned to Trelegy. Worsening wheezing this morning. Sputum cultures grew Pseudomonas sensitive to levofloxacin. Plan: Continue oxygen supplementation to maintain O2 saturation below 90% and above, currently on 2 L. New from her home baseline Trelegy 100 inhaler along with DuoNebs 4 times daily as needed Continue levofloxacin to complete a total of 5-day course for the concerning Pseudomonas pneumonia. Start date 12/18/2024 Thank you for involving pulmonary in this patient care. Will follow-up patient in pulmonary clinic 5 to 10 days postdischarge.
[2024-12-19] MEDS: LEVOFLOXACIN/D5W 750 MG/150 ML 750 MG/150 ML PIGGYBACK 100 MG IV (10:55)
[2024-12-19] MEDS: KETOROLAC 30MG/ML VIAL 30 MG IV (11:07)
--- NOTE | 2024-12-19 11:55 | EXP.DC.SUM ---
General Admission date:: 12/16/24 Discharge date: 12/19/24 HPI HPI HPI: Delia Buchanan is a 63-year-old female with a medical history significant for COPD with 2 L as needed, a flutter on Xarelto, HFrEF, hypothyroidism, anxiety/depression, GERD who presents with progressive shortness of breath over the past few days, yellow productive cough. She states she was doing well prior to couple days ago, and has had progressive shortness of breath since then. No chest pain, abdominal pain, leg swelling. Workup in the ED significant for WBC 10.8, potassium 5.3, BNP 1060, negative for flu/COVID-19, troponins normal, CTA chest suggesting right lower lobe pneumonia, and possible PE. She was given ceftriaxone, DuoNebs, azithromycin, morphine, Zofran. She is also requiring 4 to 5 L nasal cannula continuously, which is a new requirement. Given this presentation, ED provider discussed case with me and decided to admit patient for acute on chronic hypoxic respiratory failure secondary to community-acquired pneumonia, and COPD exacerbation. Hospital Course Hospital Course Hospital Course: Delia Buchanan is a 63-year-old female with a medical history significant for COPD with 2 L as needed, a flutter on Xarelto, HFrEF, hypothyroidism, anxiety/depression, GERD who presents with progressive shortness of breath over the past few days, yellow productive cough. She states she was doing well prior to couple days ago, and has had progressive shortness of breath since then. No chest pain, abdominal pain, leg swelling. Workup in the ED significant for WBC 10.8, potassium 5.3, BNP 1060, negative for flu/COVID-19, troponins normal, CTA chest suggesting right lower lobe pneumonia, and possible PE. She was given ceftriaxone, DuoNebs, azithromycin, morphine, Zofran. She is also requiring 4 to 5 L nasal cannula continuously, which is a new requirement. Given this presentation, ED provider discussed case with me and decided to admit patient for acute on chronic hypoxic respiratory failure secondary to community-acquired pneumonia, and COPD exacerbation. Showing improvement. Stable discharge home. Problems addressed as follows: #Acute on chronic hypoxic respiratory failure #Community-acquired pneumonia #COPD exacerbation #Rhinovirus infection ? Presented with progressive shortness of breath, increased yellow productive cough. CTA chest showing right lower lobe pneumonia. Full respiratory panel positive for rhinovirus. Initial WBC normal. No signs of sepsis. Did have a fever of 100.5. Showed gradual improvement. White count bumped to 16 but improved back to 10 by day of discharge. Showed some gradual improvement. Pulmonology consulted during admission. Evaluated on morning of discharge. Given patient's previous sputum cultures for Enterobacter and stenotrophomonas along with current culture positive for Pseudomonas, transition to Levaquin to complete antibiotic course. Will complete 5 more days of therapy at discharge. Continue DuoNebs at home 4 times a day and Trelegy 100 inhaler. Goal sats greater than 90%. Has oxygen at home. Continue 2 to 4 L as needed for O2 sats greater than 90%. #A-flutter #Suspected pulmonary embolism ruled out ? CTA initially concerning for possible PE. After discussion with pulmonology, agree that PE is not present. Resume Xarelto 20 mg daily per home regimen for stroke prophylaxis due to her A-fib/a flutter. Currently rate controlled, continue home amiodarone 200 mg daily, metoprolol 100 mg twice daily. #Chronic HFpEF ? Currently euvolemic. BNP 1060. ECHO March 2024 showed recovered LVEF 55%. Nonischemic cardiomyopathy. Continue home torsemide 20 mg daily. Continue home spironolactone, metoprolol. Held Jardiance during admission, resume at discharge. #Hypothyroidism: TSH elevated 5.54, free T4 low normal. Patient has been taking her levothyroxine every day on an empty stomach. Increased levothyroxine from 50 to 75 mcg. #Anxiety/depression: Continue home citalopram 10 mg. #Peripheral neuropathy: Continue home gabapentin 600 mg twice daily. #GERD: Continue home PPI, H2 iftikhar. Discharged with walker due to patient's generalized weakness Total time spent on discharge 32 minutes in counseling, documentation, chart review, and direct care with patient. Exam Data for Last 24 hours Vital signs and Labs for Last 24 Hours: Temp Pulse Resp BP Pulse Ox O2 Del Method O2 Flow Rate 98.7 F 60 14 178/95 H 93 L Nasal Cannula 3 12/19/24 07:59 12/19/24 11:02 12/19/24 07:59 12/19/24 07:59 12/19/24 08:00 12/19/24 11:10 12/19/24 11:10 Laboratory Results - last 24 hr 12/16/24 17:42: MRSA (PCR) Positive A 12/19/24 06:18: WBC 10.1 D, RBC 4.31, Hgb 11.7 L, Hct 37.9, MCV 87.9, MCH 27.1, MCHC 30.9 L, RDW 17.6 H, Plt Count 349, MPV 9.9, Neut % (Auto) 79.1, Lymph % (Auto) 13.5, [place] % (Auto) 6.9, Eos % (Auto) 0.0 L, Baso % (Auto) 0.1, Neut # (Auto) 8.0 H, Lymph # (Auto) 1.4, [place] # (Auto) 0.7, Eos # (Auto) 0.0, Baso # (Auto) 0.0, Sodium 134 L, Potassium 4.6, Chloride 96 L, Carbon Dioxide 33 H, Anion Gap 9.6, BUN 37 H, Creatinine 1.20 H, Estimated Creat Clear 58, Estimated GFR 46 L, Est GFR ( Amer) 55 L, Glucose 124 H D, Calcium 8.8, Magnesium 1.7, Total Bilirubin 0.3, AST 36, ALT 33, Alkaline Phosphatase 112, C-Reactive Protein 15.1 H D, Total Protein 7.7, Albumin 3.7, Globulin 4.0 H, Albumin/Globulin Ratio 0.9 L I & O for Last 24 hours: Intake & Output 12/16/24 12/17/24 12/18/24 12/19/24 23:59 23:59 23:59 23:59 Intake Total 420 / 720 1580 / 1580 1060 / 1060 300 / 300 Output Total 820 / 820 1250 / 1250 1500 / 1500 0 / 0 Balance -400 / -100 330 / 330 -440 / -440 300 / 300 Weight 72.575 kg 72.575 kg 76.476 kg 74.344 kg Microbiology Reports for the Last 24 Hours: Microbiology 12/16/24 19:15 Sputum - Expectorated Sputum Gram Stain - Final 12/16/24 19:15 Sputum - Expectorated Sputum Sputum Culture - Final Pseudomonas aeruginosa 12/16/24 11:09 Blood Blood Culture - Preliminary NO GROWTH AFTER 48 HOURS 12/16/24 10:25 Blood Blood Culture - Preliminary NO GROWTH AFTER 48 HOURS Constitutional Constitutional: no acute distress, average body habitus and chronically ill appearing *Routine HEENT Exam Head: Present normocephalic and atraumatic ENT: Present mucous membranes moist *Routine Neck Exam Neck: Present supple, full ROM and normal carotid upstroke; Absent JVD, carotid bruit or lymphadenopathy *Routine Respiratory Exam Respiratory: Present prolonged expiratory phase and wheezes (improved); Absent rhonchi or crackles Comments: Mild wheezing bilateral lung ignacio. *Routine Cardiovascular Exam Cardiovascular: Present RRR, Normal S1 and Normal S2; Absent murmur or gallop *Routine Abdominal Exam Abdominal: Present soft and normoactive bowel sounds; Absent tenderness, distended or organomegaly *Routine Rectal Exam Patient deferred: visual exam *Routine Exam Patient deferred: external exam *Routine Extremities Exam Extremities: Present full ROM, pulses intact and normal capillary refill; Absent cyanosis, clubbing or edema *Routine Skin Exam Skin: Present intact and warm; Absent erythema *Routine Neurological Exam Neurological: Present alert, oriented X3, CN II-XII intact and moving all extremities; Absent sensory deficit or motor deficit Routine Psychiatric Exam Psychiatric: Present normal affect Results Data Completed and Pending Labs on day of discharge: Labs from last 24 hours 12/19/24 12/16/24 06:18 17:42 WBC 10.1 D RBC 4.31 Hgb 11.7 L Hct 37.9 MCV 87.9 MCH 27.1 MCHC 30.9 L RDW 17.6 H Plt Count 349 MPV 9.9 Neut % (Auto) 79.1 Lymph % (Auto) 13.5 [place] % (Auto) 6.9 Eos % (Auto) 0.0 L Baso % (Auto) 0.1 Neut # (Auto) 8.0 H Lymph # (Auto) 1.4 [place] # (Auto) 0.7 Eos # (Auto) 0.0 Baso # (Auto) 0.0 Sodium 134 L Potassium 4.6 Chloride 96 L Carbon Dioxide 33 H Anion Gap 9.6 BUN 37 H Creatinine 1.20 H Estimated Creat Clear 58 Estimated GFR 46 L Est GFR ( Amer) 55 L Glucose 124 H D Calcium 8.8 Magnesium 1.7 Total Bilirubin 0.3 AST 36 ALT 33 Alkaline Phosphatase 112 C-Reactive Protein 15.1 H D Total Protein 7.7 Albumin 3.7 Globulin 4.0 H Albumin/Globulin Ratio 0.9 L MRSA (PCR) Positive A Preliminary micro results at discharge 12/16/24 11:09 Blood Culture - Preliminary Blood NO GROWTH AFTER 48 HOURS 12/16/24 10:25 Blood Culture - Preliminary Blood NO GROWTH AFTER 48 HOURS DS: Diagnosis Discharge Diagnosis (1) PNA (pneumonia): Status: Acute Code(s): J18.9 - Pneumonia, unspecified organism Qualifiers: Laterality: unspecified laterality Lung location: unspecified part of lung Pneumonia type: due to unspecified organism Qualified Code(s): J18.9 - Pneumonia, unspecified organism (2) Acute and chronic respiratory failure with hypoxia: Status: Resolved Code(s): J96.21 - Acute and chronic respiratory failure with hypoxia (3) Viral pneumonia: Status: Acute Code(s): J12.9 - Viral pneumonia, unspecified (4) Pseudomonas pneumonia: Status: Acute Code(s): J15.1 - Pneumonia due to Pseudomonas Problem details: present on admission (5) HFrEF (heart failure with reduced ejection fraction): Status: Acute Code(s): I50.20 - Unspecified systolic (congestive) heart failure (6) Atrial flutter: Status: Acute Code(s): I48.92 - Unspecified atrial flutter Qualifiers: Atrial flutter type: unspecified Qualified Code(s): I48.92 - Unspecified atrial flutter (7) Hypothyroidism: Status: Chronic Code(s): E03.9 - Hypothyroidism, unspecified Qualifiers: Hypothyroidism type: unspecified Qualified Code(s): E03.9 - Hypothyroidism, unspecified (8) Hypertension: Status: Chronic Code(s): I10 - Essential (primary) hypertension Qualifiers: Hypertension type: primary hypertension Qualified Code(s): I10 - Essential (primary) hypertension (9) Hyperlipidemia: Status: Chronic Code(s): E78.5 - Hyperlipidemia, unspecified Qualifiers: Hyperlipidemia type: mixed hyperlipidemia Qualified Code(s): E78.2 - Mixed hyperlipidemia Meds Home Medications and Allergies Home Medications ?Medication ?Instructions ?Recorded ?Confirmed ?Type pantoprazole 40 mg tablet,delayed 40 mg PO DAILY GERD #90 tabs 03/04/21 12/16/24 Rx release citalopram 10 mg tablet 10 mg PO DAILY 03/01/22 12/16/24 History diclofenac sodium 1 % topical gel 1 ea topical QIDP PRN Mild Pain 03/01/22 12/16/24 History (Scale Score 1-4) levothyroxine 50 mcg tablet 50 mcg PO DAILY 03/01/22 12/16/24 History famotidine 40 mg tablet 40 mg PO BID acid reflux #60 tabs 01/28/23 12/16/24 Rx diclofenac sodium 75 mg 75 mg PO BIDP PRN Mild Pain (Scale 04/13/23 12/17/24 History tablet,delayed release Score 1-4) lidocaine 5 % topical patch 1 patch topical DAILY 04/13/23 12/16/24 History (Lidoderm) fluticasone fur. 100 mcg-umeclid 1 inh inhalation DAILY 30 days #60 10/29/23 12/16/24 Rx 62.5 mcg-vilant 25 mcg ea inhalat.powder (Trelegy Ellipta) gabapentin 600 mg tablet 600 mg PO BID 01/23/24 12/16/24 History atorvastatin 40 mg tablet 40 mg PO HS Cholesterol #30 tabs 03/29/24 12/16/24 Rx empagliflozin 10 mg tablet 10 mg PO DAILY #30 tabs 03/29/24 12/16/24 Rx (Jardiance) metoprolol succinate 100 mg 100 mg PO BID 30 days #60 tabs 03/29/24 12/16/24 Rx tablet,extended release 24 hr rivaroxaban 20 mg tablet (Xarelto) 20 mg PO QPMWITHMEAL #30 tabs 03/29/24 12/16/24 Rx spironolactone 25 mg tablet 12.5 mg (1/2 x 25 mg) PO DAILY 30 03/29/24 12/16/24 Rx days #30 tabs torsemide 20 mg tablet 20 mg PO DAILY 30 days #30 tabs 03/29/24 12/16/24 Rx albuterol sulfate 90 mcg/actuation 1 puff inhalation Q4HP PRN 12/16/24 12/17/24 History aerosol inhaler (Ventolin HFA) Shortness Of Breath amiodarone 200 mg tablet 200 mg PO DAILY 12/17/24 12/17/24 History aspirin 81 mg tablet,delayed 81 mg PO DAILY 12/17/24 12/17/24 History release duloxetine 30 mg capsule,delayed 30 mg PO DAILY 12/17/24 12/17/24 History release guaifenesin 100 mg/5 mL oral liquid 200 mg (10 mL) PO Q4HP PRN Cough 5 12/19/24 Rx days #473 mL levofloxacin 750 mg tablet 750 mg PO DAILY #5 tabs 12/19/24 Rx oxycodone-acetaminophen 5 mg-325 1 tab PO Q8H PRN pain #9 tabs 12/19/24 Rx mg tablet New Prescriptions to Start Prescriptions: guaifenesin Salazar Arreola levofloxacin Elba,Salazar oxycodone-acetaminophen Salazar Arreola Allergies Allergy/AdvReac Type Severity Reaction Status Date / Time codeine Allergy Mild Nausea Verified 04/26/24 15:05 penicillin G (PENICILLIN G) Allergy Mild I-RASH/NV Verified 04/26/24 15:05 acetaminophen (ACETAMINOPHEN) AdvReac Mild NOT Verified 04/26/24 15:05 ALLERGIC. NEED TO WATCH DUE TO LIVER Discharge Plan Disposition Patient Disposition: Home, Self-Care Condition: Fair Discharge Order Discharge Orders: Discharge Order (Routine); Ordered 12/19/24 Ordered By: Salazar Arreola Follow up Plan Follow up with: Solange Mills APRN [Primary Care Provider, Medical] - 12/25/24 3:30 pm Eden Darling MD [Physician, Pulmonology] - 01/02/25 1:00 pm Prescriptions/Medication Reconciliation: New guaifenesin 100 mg/5 mL Liquid 200 mg PO Q4HP PRN (Reason: Cough) 5 Days Qty: 473 0RF levofloxacin 750 mg tablet 750 mg PO DAILY Qty: 5 0RF oxycodone-acetaminophen 5-325 mg tablet 1 tab PO Q8H PRN (Reason: pain) Qty: 9 0RF Continued spironolactone 25 mg tablet 12.5 mg PO DAILY 30 Days Qty: 30 4RF torsemide 20 mg tablet 20 mg PO DAILY 30 Days Qty: 30 4RF Xarelto 20 mg tablet 20 mg PO QPMWITHMEAL Qty: 30 5RF Rx Instructions: must administer with evening meal metoprolol succinate 100 mg tablet extended release 24 hr 100 mg PO BID 30 Days Qty: 60 4RF Jardiance 10 mg tablet 10 mg PO DAILY Qty: 30 5RF atorvastatin 40 mg tablet 40 mg PO HS Qty: 30 3RF pantoprazole 40 mg tablet,delayed release (DR/EC) 40 mg PO DAILY Qty: 90 3RF diclofenac sodium 75 mg tablet,delayed release (DR/EC) 75 mg PO BIDP PRN (Reason: Mild Pain (Scale Score 1-4)) lidocaine [Lidoderm] 5 % adhesive patch,medicated 1 patch topical DAILY famotidine 40 mg tablet 40 mg PO BID Qty: 60 5RF Trelegy Ellipta 100-62.5-25 mcg Blister With Device 1 inh inhalation DAILY 30 Days Qty: 60 0RF gabapentin 600 mg tablet 600 mg PO BID albuterol sulfate [Ventolin HFA] 90 mcg/actuation HFA aerosol inhaler 1 puff INHALATION Q4HP PRN (Reason: Shortness Of Breath) Patient Comments: Inhale 1 puff every 4 to hours by inhalation route as needed. amiodarone 200 mg tablet 200 mg PO DAILY aspirin 81 mg tablet,delayed release (DR/EC) 81 mg PO DAILY duloxetine 30 mg capsule,delayed release(DR/EC) 30 mg PO DAILY Patient Comments: TAKE 1 CAPSULE BY MOUTH EVERY DAY citalopram 10 mg tablet 10 mg PO DAILY diclofenac sodium 1 % gel 1 ea TOPICAL QIDP PRN (Reason: Mild Pain (Scale Score 1-4)) levothyroxine 50 mcg tablet 50 mcg PO DAILY Problem Reconciliation Problems Reviewed?: Yes Patient Discharge Instructions ACTIVITY: Continue current activity DIET: continue same diet Patient Instructions: DI for Chronic Obstructive Pulmonary Disease, Stop Light COPD Print Language: Maltese Providers Primary Care Provider: Solange Mills Admit Provider: Arpit Berkowitz Attending Provider: Arpit Berkowitz
--- NOTE | 2024-12-19 12:14 | HMH.PHAAMS2 ---
- Antimicrobial Stewardship Review culture & sensitivity review Stewardship interventions: reviewed - no change Comments: PT ON APPROPRIATE ANTIBIOTIC FOR SPUTUM CULTURES
[2024-12-19] MEDS: MAGNESIUM SULFATE IN WATER 2 GM/50 ML PIGGYBACK IV ×2 (13:46→14:46)
--- NOTE | 2024-12-19 14:14 | CARE MANAGER ---
Addendum entered by Eli Larsen RN 12/19/24 14:22: Patient requested [facility] for supplier and I faxed information. Original Note: Patient is requiring the use of rollator walker to aid with ambulation due to a mobility impairment that cannot be corrected with a cane. Patient requires the use of the walker to aid with activities of daily living and there is potential for ambulation with this device.
--- NOTE | 2024-12-20 10:20 | CARE MANAGER ---
Addendum entered by Eli Larsen RN 12/20/24 10:21: Patient requests DME to come from [facility]. Will fax information. Original Note: Patient needs a BSC due to inability to to get to the toilet facilities due to weakness and shortness of breath.
--- NOTE | 2024-12-20 10:25 | CARE MANAGER ---
Spoke with patient related to recent hospital stay. She states she is still short of breath and not feeling well. She lives by herself and is having a hard time getting to the bathroom and back. Discussed BSC and will order from [facility] as she is established patient there. She reports using little heaters for heat. She used to use kerosene heaters but they make it harder for her to breathe. We discussed the community resource guide and what may be available for her. She appreciated the information. She has her new medication and is aware of her follow up appointments.
== END 2024-12-19 17:12 | disposition home or self-care (01) ==
LOC: ER 11:33 → 2ND 16:41
PROVIDERS: Internal Medicine; Admitting Provider Student in an Organized Health Care Education/Training Program; Emergency Provider Emergency Medicine; PCP Nurse Practitioner; Visit Provider Student in an Organized Health Care Education/Training Program
DX: J15.1 Pneumonia due to Pseudomonas (principal); I50.43 Acute on chronic combined systolic (congestive) and diastolic (congestive) heart failure; J96.21 Acute and chronic respiratory failure with hypoxia; J44.0 Chronic obstructive pulmonary disease with (acute) lower respiratory infection; J44.1 Chronic obstructive pulmonary disease with (acute) exacerbation; I48.92 Unspecified atrial flutter; I42.8 Other cardiomyopathies; B34.8 Other viral infections of unspecified site; E03.9 Hypothyroidism, unspecified; F32.A Depression, unspecified; K21.9 Gastro-esophageal reflux disease without esophagitis; G62.9 Polyneuropathy, unspecified; Z79.890 Hormone replacement therapy; Z79.82 Long term (current) use of aspirin; Z88.0 Allergy status to penicillin; I25.10 Atherosclerotic heart disease of native coronary artery without angina pectoris; F41.9 Anxiety disorder, unspecified; F17.210 Nicotine dependence, cigarettes, uncomplicated; T45.516A Underdosing of anticoagulants, initial encounter; Z91.138 Patient's unintentional underdosing of medication regimen for other reason
CPT/HCPCS: 0223U; 36415; 71045; 71275; 80053; 80061; 82803; 83605; 83735; 83880; 84145; 84439; 84443; 84484; 85025; 86140; 86803; 87040; 87070; 87077; 87186; 87205; 87389; 87522; 87636; 87641; 89220; 93005; 94640; 94760; 94761; 97163; 97165; 99285; J0456; J0696; J1885; J1956; J2270; J2405; J3475; J7050; J7614; Q9967